=== PATIENT | female | born 1940 | race Caucasian/White ===

== ENCOUNTER → 2016-12-20 | Outpatient (CLI) | payer OTHER ==
[~2016-12-20] MED LIST: ASPI1TAB48 PO; CEFU500T16 PO; CEPH500C2 PO; CEPH500T PO; CHOL100010 PO; CHOL100027 PO; CIPR-255 PO; CPR750 PO; CYAN100020 PO; CZR50 PO; FERR325T PO; FERR325T51 PO; FLNIN/ NAE; FLUT1SPR12 NAE; FOLI1TAB7 PO; FURO-85 PO; GLC500 PO; IPRA1AER2 INH; LPT10 PO; LSX20 PO; MAGNTAB4 PO; METF-80 PO; MISCCAP80 PO; MONT1TAB5 PO; MULT-190 PO; MULT-884 PO; NTRGSL/4 UT; OXYC-57 PO; OXYC1TAB3 PO; RANI150T2 PO; SNG10 PO; TPRSR/25 PO; TPRSR25 PO; VITA100C4 PO; VITA400C3 PO; WARF-283 PO; WARF2TAB PO; ZNTT/150 PO
[2016-12-20 13:22] LABS: ALT/SGPT 23 U/L (12-78); BLOOD UREA NITROGEN 18 mg/dl (7-18); BUN/CREATININE RATIO 19.6 (10-20); CALCIUM 9.9 mg/dl (8.5-10.1); CARBON DIOXIDE 27 mmol/L (21-32); CHLORIDE 105 mmol/L (98-107); CHOLESTEROL 128 mg/dl (0-200); CREATININE 0.92 mg/dl (0.60-1.20); GLUCOSE 98 mg/dl (70-99); POTASSIUM 4.2 mmol/L (3.5-5.1); SODIUM 141 mmol/L (136-145); TRIGLYCERIDES 81 mg/dl (0-150); VERY LOW DENSITY LIPOPROT CALC 16 mg/dl
[2016-12-20 13:32] LABS: ALB/GLOB RATIO 0.9 (0.9-2); ESTIMATED AVERAGE GLUCOSE 137 mg/dl; HA1C FLAG Normal (Normal)
[2016-12-20 13:33] LABS: ALKALINE PHOSPHATASE 88 U/L (45-117); AST/SGOT 20 U/L (15-37); HDL CHOLESTEROL 63 mg/dl; LDL CHOLESTEROL CALCULATED 49 mg/dl
--- NOTE | 2016-12-25 14:16 | CODING QUERY MEDICAL NECESSITY ---
SUPPORTING DIAGNOSIS NEEDED A supporting diagnosis is required for the test/procedure performed on this patient in order for us to be reimbursed by the patient's insurance. Please provide a supporting diagnosis for the following test/procedure listed below next to the test name along with your signature. *If there is no additional diagnosis for this patient that would support the following test/procedure please document that below next to the test/procedure. Test(s)/Procedure(s) that require a supporting diagnosis: * VITAMIN D 25-HYDROXY DIAGNOSIS: * DOS: 12/20/16 Provider Signature: Date: Thank you Sofy Hodge Health Information Management Once completed, please kindly fax back to [phone] For questions please call [phone]
== END | disposition home or self-care (01) ==
LOC: C.LABPVFM 09:40
PROVIDERS: ATTEND Family Medicine
DX: I10 Essential (primary) hypertension (principal); E78.5 Hyperlipidemia, unspecified; E11.21 Type 2 diabetes mellitus with diabetic nephropathy; R53.83 Other fatigue; E55.9 Vitamin D deficiency, unspecified; Z51.81 Encounter for therapeutic drug level monitoring; I48.2 Chronic atrial fibrillation; Z79.01 Long term (current) use of anticoagulants

== ENCOUNTER 2017-01-06 15:04 | Emergency (ER) | payer OTHER ==
[~2017-01-06] VITALS: Ht 157.5 cm; Wt 88.0 kg
[~2017-01-06 15:04] MED LIST changes: -ASPI1TAB48 PO; -CEFU500T16 PO; -CEPH500C2 PO; -CHOL100027 PO; -CIPR-255 PO; -CPR750 PO; -FERR325T PO; -FLNIN/ NAE; -FOLI1TAB7 PO; -GLC500 PO; -IPRA1AER2 INH; -LPT10 PO; -LSX20 PO; -MULT-884 PO; -NTRGSL/4 UT; -RANI150T2 PO; -SNG10 PO; -TPRSR/25 PO; -VITA400C3 PO; -WARF-283 PO
[2017-01-06 15:17] VITALS: TEMP 37; Ht 157.5 cm; Wt 88.0 kg
[2017-01-06] MEDS ORDERED: GLC500 PO (15:46)
[2017-01-06] MEDS ORDERED: FLNIN/ NAE (15:46)
[2017-01-06] MEDS ORDERED: ASPI1TAB48 PO (16:00)
[2017-01-06] MEDS ORDERED: WARF-283 PO ×2 (16:00→16:02)
[2017-01-06] MEDS ORDERED: TPRSR/25 PO ×2 (16:02)
[2017-01-06] MEDS ORDERED: LSX20 PO (16:02)
[2017-01-06] MEDS ORDERED: RANI150T2 PO (16:03)
[2017-01-06] MEDS ORDERED: SNG10 PO (16:03)
[2017-01-06] MEDS ORDERED: CHOL100027 PO (16:07)
[2017-01-06] MEDS ORDERED: FERR325T PO (16:07)
[2017-01-06] MEDS ORDERED: VITA400C3 PO (16:08)
[2017-01-06] MEDS ORDERED: NTRGSL/4 UT (16:11)
[2017-01-06 16:34] VITALS: BP 151/89; PULSE 77; O2SAT 94
[2017-01-06] MEDS ORDERED: LPT10 PO (19:41)
[2017-01-06] MEDS ORDERED: MULT-884 PO (19:45)
[2017-01-06] MEDS ORDERED: IPRA1AER2 INH (19:51)
[2017-01-06] MEDS ORDERED: FOLI1TAB7 PO (23:31)
--- NOTE | 2017-01-08 17:52 | EMERGENCY ROOM VISIT NOTE ---
ED Visit Note First contact with patient: 15:25 Chief Complaint: Left lower leg laceration. History of Present Illness: Ms. Hester is a 76-year-old white female who ambulates into the ED complaining of a left lower leg laceration. Patient reports approximately 2 hours ago she was sitting in a rocking chair and attempted to cross her legs. She caught her lower leg on another piece of furniture and developed a superficial tear over the anterior aspect of the left lower leg. She reports there was no bleeding at the time of the injury. Currently associated with her superficial skin tear she reports she has a stinging sensation. She rates this discomfort 5/10. The pain is nonradiating. Pain worsens with palpation. She has not identified any alleviating factors related to this discomfort. She has not taken a medications for this discomfort prior to arrival at the hospital. She denies any associated symptoms including knee pain, ankle pain, leg weakness/numbness/tingling. Review of Systems: As noted above in history of present illness. Past Medical History: (1) AMI (acute myocardial infarction) (2) Anticoagulated on Coumadin (3) Atrial fibrillation (4) Atrial fibrillation with rapid ventricular response (5) Benign hypertension (6) CAD (coronary artery disease) (7) GERD (gastroesophageal reflux disease) (8) Hyperlipidemia (9) MRSA (10) ELISEO (obstructive sleep apnea) (11) Pain of left lower leg (12) rotator cuff surgery (13) Sarcoidosis (14) Spinal stenosis Surgical Problems: (1) Percutaneous transluminal coronary angioplasty status (2) Total knee replacement status Current Medications: Medications Dose Route/Sig Max Daily Dose Days Date Category Dose Instructions Vitamin E 400 Iu (Vitamin E) Unknown Strength Cap 1 Tab PO DAILY 01/06/17 Reported Vitamin D 1000 Unit (Cholecalciferol) 1,000 Unit Cap 1,000 Inter.unit PO DAILY 01/06/17 Reported Ferrous Sulfate 325 Mg Tab 325 Mg PO DAILY 01/06/17 Reported Montelukast Sodium (Montelukast Sod) 10 Mg Tab 10 Mg PO HS 01/06/17 Reported Ranitidine HCl 150 Mg Tab 150 Mg PO BID 01/06/17 Reported Furosemide 20 Mg Tab 20 Mg PO 3XWK 01/06/17 Reported TAKE THIS MEDICATION EVERY SUNDAY,SUNDAY AND SUNDAY Metoprolol Succinate ER (Metoprolol Succinate) 25 Mg Tabcr 50 Mg PO QPM 01/06/17 Reported Metoprolol Succinate ER (Metoprolol Succinate) 25 Mg Tabcr 37.5 Mg PO QAM 01/06/17 Reported Warfarin Sodium 4 Mg Tab 2 Mg PO 2XWK 01/06/17 Reported TAKE HALF A TABLET (2 MG) EVERY SUNDAY AND SUNDAY OR OTHERWISE DIRECTED TO TAKE BY ANTICOAGULATION CLINIC/ Metformin HCl 500 Mg Tab 1,000 Mg PO QAM 01/06/17 Reported Fluticasone Propionate 120 Sprays/6000 Mcg Inha 2 Sprays [place] DAILY PRN 01/06/17 Reported Slow-Mag Tab (Magnesium Chloride) 64 Mg Tabcr 64 Mg PO BID 05/16/16 Reported Folvite (Folic Acid) 1 Mg Tab 1 Mg PO DAILY 04/11/16 Reported Percocet 5MG/325MG (Oxycodone/Acetaminophen) Tab 1-2 Tabs PO Q4H PRN 03/06/16 Reported PAIN Ocuvite Preservision (Multivitamins/Minerals) 1 Tab Tab 1 Tab PO BID 03/06/16 Reported Fortamet (Metformin Hcl) 500 Mg Tab 500 Mg PO QPM 03/06/16 Reported Cephalexin 500 Mg Tab 500 Mg PO DAILY 11/10/15 Reported Vitamin B12 (Cyanocobalamin) 1,000 Mcg Tab 1,000 Mcg PO DAILY 10/19/15 Reported Probiotic (Probiotic Product) 1 Cap Cap 1 Cap PO QPM 10/19/15 Reported Combivent Respimat (Ipratropium-Albuterol) 1 Aer Aer 1 Puff INH UD PRN 03/02/15 Reported Multi Vitamin Daily (Multiple Vitamin) 1 Tab Tab 1 Tab PO DAILY 03/02/15 Reported Atorvastatin Calcium (Atorvastatin) 10 Mg Tab 10 Mg PO QPM 03/02/15 Reported Nitrostat (Nitroglycerin) 0.4 Mg Tab 0.4 Mg UT UD PRN 01/29/[address] ONE TABLET UNDER THE TONGUE EVERY 5 MINUTES FOR UP TO 3 DOSES IF NEEDED FOR CHEST PAIN. Aspirin Low Dose (Aspirin) 81 Mg Tab 81 Mg PO 3XWK 01/29/14 Reported TAKE THIS MEDICATION EVERY SUNDAY,SUNDAY AND SUNDAY Warfarin Sodium 4 Mg Tab 4 Mg PO 5XWK 01/29/14 Reported TAKE 4 MG EVERY SUNDAY,SUNDAY,SUNDAY,SUNDAY AND SUNDAY OR OTHERWISE DIRECTED TO TAKE BY ANTICOAGULATION CLINIC/MD. Allergies to Medications: Morphine. Social History: Patient is not currently employed; she feels safe in her home environment; she denies tobacco and alcohol use. Tetanus Immunization Status: Patient reports up-to-date. Physical Examination: Vital Signs: Date Time Temp Pulse Resp B/P Pulse Ox O2 Delivery O2 Flow Rate FiO2 01/06/17 16:34 77 18 151/89 94 01/06/17 15:17 37.0 86 18 170/86 92 Room Air GENERAL: 76-year-old female in mild distress due to pain, nontoxic-appearing, afebrile and hemodynamically stable. NEUROLOGICAL: Awake, alert and oriented to person, place and time. Answering questions appropriately and following commands. Normal gait. Good hand eye coordination. No focal motor sensory deficits. SKIN: Warm, dry and pink. Left Lower Leg: Patient has a crescent shaped 7.3 mm superficial skin tear over the anterior aspect of the left lower leg. No active bleeding. LEFT LOWER EXTREMITY: Soft tissue injury as noted above. No gross bony deformity. Full range of motion in the flexion and extension and ankle plantar flexion and dorsiflexion. Patient has some venous stasis changes as well as some mild dependent edema in this leg. Distal pulses and sensations are intact. ED Course: Patient is assessed as noted above. Wound Repair: Complexity: Basic Verbal consent was obtained after the risks and benefits were explained. The skin was prepped with betadine and a sterile field set. The wound was explored for foreign bodies and none found. Copious irrigation was performed using sterile saline. Debridement was not performed. Patient's wound was dry and benzoin was placed around the wound and allowed to dry. The wound edges were approximated using multiple Steri-Strips. Good approximation was achieved. Sterile dressing applied. No complications and the patient tolerated the procedure well. Patient was educated about tonight's findings and instructed on his treatment plan; he verbalizes understanding and agreement with this plan. Clinical Impression: Left lower leg skin tear. Disposition: Patient discharged home in stable condition; prior to departure he was reassessed and subjectively reported she was pain-free. Plan: Comfort measures, wound care, and signs of infection were discussed with the patient. Patient was encouraged to follow-up with personal physician or return emergency department for signs of infection or any new/concerning symptoms.
[2017-01-17] MEDS ORDERED: CIPR-255 PO (10:37)
[2017-02-19] MEDS ORDERED: CEPH500C2 PO (14:52)
[2017-02-26] MEDS ORDERED: CEPH500C2 PO (14:13)
[2017-03-05] MEDS ORDERED: CEFU500T16 PO (15:18)
[2017-03-22] MEDS ORDERED: CPR750 PO (13:56)
[2017-03-22] MEDS ORDERED: CEPH500C2 PO (14:24)
[2017-06-28] MEDS ORDERED: CEPH500C2 PO (13:14)
== END 2017-01-06 16:35 | disposition home or self-care (01) ==
LOC: C.EDB 15:05 → C.EDD 16:35
DX: S81.812A Laceration without foreign body, left lower leg, initial encounter (principal); W45.8XXA Other foreign body or object entering through skin, initial encounter; Z79.01 Long term (current) use of anticoagulants; I25.2 Old myocardial infarction; I48.91 Unspecified atrial fibrillation; I10 Essential (primary) hypertension; I25.10 Atherosclerotic heart disease of native coronary artery without angina pectoris; K21.9 Gastro-esophageal reflux disease without esophagitis; E78.5 Hyperlipidemia, unspecified; G47.33 Obstructive sleep apnea (adult) (pediatric); Z98.62 Peripheral vascular angioplasty status; Z96.659 Presence of unspecified artificial knee joint; Z79.899 Other long term (current) drug therapy; Z79.82 Long term (current) use of aspirin

== ENCOUNTER 2017-01-14 21:23 | Inpatient (IN) | payer OTHER ==
[~2017-01-14] VITALS: Ht 157.5 cm; Wt 87.9 kg
[~2017-01-14 21:23] MED LIST changes: +ASPI1TAB48 PO; -CHOL100010 PO; +CHOL100027 PO; -CZR50 PO; +FERR325T PO; -FERR325T51 PO; +FLNIN/ NAE; -FLUT1SPR12 NAE; +FOLI1TAB7 PO; -FURO-85 PO; +GLC500 PO; +IPRA1AER2 INH; +LPT10 PO; +LSX20 PO; -MONT1TAB5 PO; +MULT-884 PO; +NTRGSL/4 UT; -OXYC1TAB3 PO; +RANI150T2 PO; +SNG10 PO; +TPRSR/25 PO; -TPRSR25 PO; -VITA100C4 PO; +VITA400C3 PO; +WARF-283 PO; -WARF2TAB PO; -ZNTT/150 PO
[2017-01-14] MEDS ORDERED: CEFTRIAXONE SOD INJ 1 GM ADDVIAL IV STA (22:07)
[2017-01-14] MEDS ORDERED: OXYCODONE HCL IR 5 MG TAB (IMMEDIATE RELEASE) PO STA (22:07)
[2017-01-14] MEDS ORDERED: VANCOMYCIN 1GM/270ML NSS IV STA (22:07)
[2017-01-14] MEDS ORDERED: ONDANSETRON INJ 2 MG/ML 2 ML VIAL IV STA (22:07)
--- NOTE | 2017-01-14 22:24 | EMERGENCY ROOM VISIT NOTE ---
History Report prepared by Lissa: Ginger Camacho Under the Supervision of: Dr. Codey Day M.D. First contact with patient: 22:02 Chief Complaint: WOUND INFECTION Stated Complaint: POSSIBLE CELLULITIS ON LF LEG History of Present Illness The patient is a 76 year old female who presents to the Emergency Room with complaints of a worsening wound infection of the left leg for the past couple of days. The patient has a weeping wound on her left ankle that she has been leaving uncovered for the past 2 days. Yesterday she noticed some redness extending up her leg from the wound. She states that this redness has been gradually worsening since yesterday and today it extends all the way up her leg to her hip. She is experiencing associated pain of the left leg. The patient rates her pain as a 5/10 in severity. She also reports a headache that started earlier today. She is not following up with wound care clinic. The patient has a history of cellulitis. She is on Coumadin for atrial fibrillation. Source of History: patient Onset: 2 days ago Position: leg (left) Symptom Intensity: 5/10 Quality: other (redness) Timing: worsening Associated Symptoms: + headache Review of Systems See HPI for pertinent positives & negatives. A total of 10 systems reviewed and were otherwise negative. Past Medical & Surgical Medical Problems: (1) AMI (acute myocardial infarction) (2) Anticoagulated on Coumadin (3) Atrial fibrillation (4) Atrial fibrillation with rapid ventricular response (5) Benign hypertension (6) CAD (coronary artery disease) (7) GERD (gastroesophageal reflux disease) (8) Hyperlipidemia (9) MRSA (10) ELISEO (obstructive sleep apnea) (11) Pain of left lower leg (12) rotator cuff surgery (13) Sarcoidosis (14) Spinal stenosis Surgical Problems: (1) Percutaneous transluminal coronary angioplasty status (2) Total knee replacement status Family History Cancer Diabetes mellitus FHx: heart disease FHx: hypertension Lung disease Social History Smoking Status: Never Smoker Alcohol Use: none Drug Use: none Marital Status: Housing Status: lives alone Occupation Status: unemployed Current/Historical Medications Scheduled Aspirin (Aspirin Low Dose), 81 MG PO 3XWK Atorvastatin (Atorvastatin Calcium), 10 MG PO QPM Cephalexin (Cephalexin), 500 MG PO DAILY Cholecalciferol (Vitamin D 1000 Unit), 1,000 INTER.UNIT PO DAILY Cyanocobalamin (Vitamin B12), 1,000 MCG PO DAILY Ferrous Sulfate (Ferrous Sulfate), 325 MG PO DAILY Folic Acid (Folvite), 1 MG PO DAILY Furosemide (Furosemide), 20 MG PO 3XWK Magnesium Chloride (Slow-Mag Tab), 64 MG PO BID Metformin HCl (Metformin HCl), 1,000 MG PO QAM Metformin Hcl (Fortamet), 500 MG PO QPM Metoprolol Succinate (Metoprolol Succinate ER), 37.5 MG PO QAM Metoprolol Succinate (Metoprolol Succinate ER), 50 MG PO QPM Montelukast Sod (Montelukast Sodium), 10 MG PO HS Multiple Vitamin (Multi Vitamin Daily), 1 TAB PO DAILY Ocuvite Preservision (Ocuvite Preservision), 1 TAB PO BID Probiotic Product (Probiotic), 1 CAP PO QPM Ranitidine HCl (Ranitidine HCl), 150 MG PO BID Vitamin E (Vitamin E 400 Iu), 1 TAB PO DAILY Warfarin Sodium (Warfarin Sodium), 4 MG PO 5XWK Warfarin Sodium (Warfarin Sodium), 2 MG PO 2XWK Scheduled PRN Fluticasone Propionate (Fluticasone Propionate), 2 SPRAYS [place] DAILY PRN for Allergy Symptoms Ipratropium-Albuterol (Combivent Respimat), 1 PUFF INH UD PRN for Shortness of Breath Nitroglycerin (Nitrostat), 0.4 MG UT UD PRN for Chest Pain Oxycodone/Acetaminophen 5MG/325MG (Percocet 5MG/325MG), 1-2 TABS PO Q4H PRN for Pain Allergies Coded Allergies: Adhesives (Verified Allergy, Unknown, 01/14/17) Morphine (Verified Adverse Reaction, Unknown, SENSITIVITY, 01/14/17) Physical Exam Vital Signs Date Time Temp Pulse Resp B/P Pulse Ox O2 Delivery O2 Flow Rate FiO2 01/14/17 23:10 80 20 150/94 95 Room Air 01/14/17 21:25 37.1 76 20 155/88 94 Room Air Physical Exam GENERAL: Patient is a healthy-appearing well-nourished 76 year old female. HEAD: Normocephalic atraumatic EYES: Ocular movements intact pupils equal and react to light OROPHARYNX mucous membranes are moist no exudates present no erythema or edema present NECK: Supple no nuchal rigidity CHEST: Good equal expansion LUNGS: Clear and equal to auscultation CARDIAC: Normal S1 and S2 ABDOMEN: Soft nontender no guarding BACK: No CVA tenderness EXTREMITIES: Areas of cellulitis extending all the way up the left leg to the hip, there is a 1in x 3in weeping wound to the left medial malleolus area. NEURO: Patient is following commands is answering questions appropriately. Alert and oriented x3 Cranial Nerves 2-12 grossly intact Medical Decision & Procedures ER Provider Diagnostic Interpretation: Radiology results as stated below per my review and radiologist interpretation: US VENOUS LEFT LOWER EXTREMITY: No evidence of deep venous thrombosis. Limited visualization of calf veins due to soft tissue swelling. 2.6 x 0.8 x 0.7 cm fluid collection in popliteal fossa, likely a popliteal cyst and smaller than on prior ultrasound 03/20/16. Radiologist: Fernando Rivas MD Laboratory Results 01/14/17 22:30 Red Blood Count 4.32, Mean Corpuscular Volume 99.1, Mean Corpuscular Hemoglobin 32.9, Mean Corpuscular Hemoglobin Concent 33.2, Mean Platelet Volume 11.3, Neutrophils (%) (Auto) 84.6, Lymphocytes (%) (Auto) 6.1, Monocytes (%) (Auto) 8.6, Eosinophils (%) (Auto) 0.3, Basophils (%) (Auto) 0.1, Neutrophils # (Auto) 10.08, Lymphocytes # (Auto) 0.73, Monocytes # (Auto) 1.02, Eosinophils # (Auto) 0.03, Basophils # (Auto) 0.01 01/14/17 22:30 01/14/17 23:50 Test 01/14/17 22:30 White Blood Count 11.91 K/uL (4.8-10.8) Red Blood Count 4.32 M/uL (4.2-5.4) Hemoglobin 14.2 g/dL (12.0-16.0) Hematocrit 42.8 % (37-47) Mean Corpuscular Volume 99.1 fL (80-100) Mean Corpuscular Hemoglobin 32.9 pg (25-34) Mean Corpuscular Hemoglobin Concent 33.2 g/dl (32-36) Platelet Count 250 K/uL (130-400) Mean Platelet Volume 11.3 fL (7.4-10.4) Neutrophils (%) (Auto) 84.6 % Lymphocytes (%) (Auto) 6.1 % Monocytes (%) (Auto) 8.6 % Eosinophils (%) (Auto) 0.3 % Basophils (%) (Auto) 0.1 % Neutrophils # (Auto) 10.08 K/uL (1.4-6.5) Lymphocytes # (Auto) 0.73 K/uL (1.2-3.4) Monocytes # (Auto) 1.02 K/uL (0.11-0.59) Eosinophils # (Auto) 0.03 K/uL (0-0.5) Basophils # (Auto) 0.01 K/uL (0-0.2) RDW Standard Deviation 58.3 fL (36.4-46.3) RDW Coefficient of Variation 16.2 % (11.5-14.5) Immature Granulocyte % (Auto) 0.3 % Immature Granulocyte # (Auto) 0.04 K/uL (0.00-0.02) Prothrombin Time 14.9 SECONDS (9.0-12.0) Prothromb Time International Ratio 1.4 (0.9-1.1) Anion Gap 8.0 mmol/L (3-11) Est Creatinine Clear Calc Drug Dose 45.5 ml/min Estimated GFR () 56.9 Estimated GFR (Non- 49.1 BUN/Creatinine Ratio 20.4 (10-20) Calcium Level 9.2 mg/dl (8.5-10.1) Labs reviewed by ED physician. Medications Administered Medications (Trade) Dose Ordered Sig/Rain Route Start Time Stop Time Status Last Admin Dose Admin Oxycodone HCl (Roxicodone Immediate Rel Tab) 10 mg NOW STAT PO 01/14/17 22:07 01/14/17 22:10 DC 01/14/17 23:03 10 MG Ondansetron HCl (Zofran Inj) 4 mg NOW STAT IV 01/14/17 22:07 01/14/17 22:10 DC 01/14/17 23:03 4 MG Ceftriaxone Sodium (Rocephin Inj) 1 gm NOW STAT IV 01/14/17 22:07 01/14/17 22:10 DC 01/14/17 23:03 1 GM Vancomycin HCl (Vancomycin 1gm/ 270ml Nss) 1 gm NOW STAT IV 01/14/17 22:07 01/14/17 22:10 DC 01/15/17 00:06 1 ED Course 2201: Past medical records reviewed. The patient was evaluated in room B9. A complete history and physical examination was performed. 2206: Vancomycin HCl 1 gm IV, Rocephin 1 gm IV, Zofran 4 mg IV, Oxycodone HCl 10 mg PO 0005: I reassessed the patient at this time. She is feeling better and resting comfortably. I discussed the results and treatment plan with the patient. I answered all pertaining questions that she had. She expressed understanding and verbalized agreement. 8: I spoke with Dr. Dickey. We discussed the patients results and treatment plan. The patient will be evaluated by the [facility] for further management. Medical Decision Differential diagnosis: Etiologies such as cellulitis, abscess, MRSA infection, DVT, necrotizing fasciitis, dermatitis, drug eruption, as well as others were entertained. This is a 76-year-old female who presents emergency department complaining of cellulitis to the lower extremity. The patient is already on Keflex for her cellulitis however this has now rapidly expanded and goes all the way up the patient's leg. For this reason blood cultures were obtained, the patient does have an elevation in her white blood count. She was started on Rocephin and vancomycin. The patient is on Coumadin for pacemaker however her INR is 1.4. I discussed the case with the hospitalist service. Because the patient had decrease in her INR she was sent for an ultrasound which did not show any evidence of a DVT. Patient was in agreement with the treatment plan. Consults Time Called: 5 Consulting Physician: Dr. Dickey Returned Call: [address] Dickey. We discussed the patients results and treatment plan. The patient will be evaluated by the [facility] for further management. Impression Primary Impression: Cellulitis of left lower extremity Scribe Attestation The scribe's documentation has been prepared under my direction and personally reviewed by me in its entirety. I confirm that the note above accurately reflects all work, treatment, procedures, and medical decision making performed by me. Departure Information Dispostion Being Evaluated By Hospitalist Referrals Farheen Mayo M.D. (PCP) Patient Instructions My [facility]
[2017-01-14 23:15] LABS: BASO % 0.1 %; BASO ABS # 0.01 K/uL (0-0.2); COMPLETE YES; EOS % 0.3 %; HEMATOCRIT 42.8 % (37-47); IG% 0.3 %; LYMPH % 6.1 %; LYMPH ABS # 0.73 K/uL (1.2-3.4); MEAN CELL VOLUME 99.1 fL (80-100); MEAN CORPUSCULAR HEMOGLOBIN 32.9 pg (25-34); MEAN CORPUSCULAR HGB CONC 33.2 g/dl (32-36); MEAN PLATELET VOLUME 11.3 fL (7.4-10.4); MONO % 8.6 %; NEUT % 84.6 %; PLATELET COUNT 250 K/uL (130-400); RED BLOOD COUNT 4.32 M/uL (4.2-5.4); WHITE BLOOD COUNT 11.91 K/uL (4.8-10.8)
[2017-01-14 23:17] LABS: INR 1.4 (0.9-1.1); PROTHROMBIN TIME (PATIENT) 14.9 SECONDS (9.0-12.0)
[2017-01-14 23:33] LABS: BLOOD UREA NITROGEN 22 mg/dl (7-18); BUN/CREATININE RATIO 20.4 (10-20); CALCIUM 9.2 mg/dl (8.5-10.1); CARBON DIOXIDE 33 mmol/L (21-32); CHLORIDE 99 mmol/L (98-107); GLUCOSE 178 mg/dl (70-99); SODIUM 140 mmol/L (136-145)
[2017-01-15] VITALS (14 sets, daily range): BP systolic 119–154; BP diastolic 69–86; PULSE 59–68; TEMP 36.7–37.2; O2SAT 87–100; Ht 157.5 cm; Wt 87.9 kg
[2017-01-15] MEDS ORDERED: FLUTICASONE PROPIONATE NA SPR 16 GM BTL NAE PRN (01:00)
[2017-01-15] MEDS ORDERED: OXYCODONE/ACETAMINOPHEN 5-325 TAB PO PRN (01:00)
[2017-01-15] MEDS ORDERED: NITROGLYCERIN 0.4 MG SL PER TAB CHARGE UT PRN (01:00)
[2017-01-15] MEDS ORDERED: IPRATROPIUM BROMIDE/ALBUTEROL respimat INH INH PRN (01:00)
[2017-01-15] MEDS ORDERED: WARFARIN SOD 5 MG TAB PO ONE (01:00)
--- NOTE | 2017-01-15 01:45 | History and Physical ---
History & Physical Date & Time of Service: Jan 15, 2017 at 01:19 Chief Complaint: Possible Cellulitis On Lf Leg Primary Care Physician: Farheen Mayo M.D. History of Present Illness Source: patient 76 y/o F Hx CAD, sarcoid, AF-pacer. Pt suffered a superficial wound to her LLE one week prior. She developed cellulitis in the surrounding area and presented to an outpt clinic. She was placed on a course of Keflex however the cellulitis has spread over the past week and is now extensive and approaching her groin area. She may have had an accompanying low grade fever. 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 She denies SOB, N/V/D or dysuria. Past Medical/Surgical History Medical Problems: (1) AMI (acute myocardial infarction) Permanent Comment: STEMI 08/2013 this was medically managed as the offending artery was too narrow for stenting Status: Chronic (2) Anticoagulated on Coumadin Status: Chronic (3) Atrial fibrillation Status: Chronic (4) Benign hypertension Status: Chronic (5) CAD (coronary artery disease) Status: Chronic (6) GERD (gastroesophageal reflux disease) Status: Chronic (7) Hyperlipidemia Status: Chronic (8) MRSA Status: Resolved (9) ELISEO (obstructive sleep apnea) Status: Chronic (10) rotator cuff surgery Status: Resolved (11) Sarcoidosis Status: Chronic (12) Spinal stenosis Status: Chronic 13) Early DM 2 Surgical Problems: (1) Percutaneous transluminal coronary angioplasty status Status: Chronic (2) Total knee replacement status Permanent Comment: Complicated by MRSA and septic joint Status: Resolved 3) Pacer placement 2012 Family History Cancer Diabetes mellitus FHx: heart disease FHx: hypertension Lung disease Social History Smoking Status: Never Smoker Drug Use: none Marital Status: Occupational Status: unemployed Immunizations History of Influenza Vaccine: Yes Influenza Vaccine Date: Aug 19, 2013 History of Tetanus Vaccine?: Yes Tetanus Immunization Date: Jan 17, 2013 History of Pneumococcal: Yes Pneumococcal Date: Jun 10, 2009 History of Hepatitis B Vaccine: No Multi-Drug Resistant Organisms History of MDRO: No Allergies Coded Allergies: Adhesives (Verified Allergy, Unknown, 01/14/17) Morphine (Verified Adverse Reaction, Unknown, SENSITIVITY, 01/14/17) Home Medications Scheduled Aspirin (Aspirin Low Dose), 81 MG PO 3XWK Atorvastatin (Atorvastatin Calcium), 10 MG PO QPM Cephalexin (Cephalexin), 500 MG PO DAILY Cholecalciferol (Vitamin D 1000 Unit), 1,000 INTER.UNIT PO DAILY Cyanocobalamin (Vitamin B12), 1,000 MCG PO DAILY Ferrous Sulfate (Ferrous Sulfate), 325 MG PO DAILY Folic Acid (Folvite), 1 MG PO DAILY Furosemide (Furosemide), 20 MG PO 3XWK Magnesium Chloride (Slow-Mag Tab), 64 MG PO BID Metformin HCl (Metformin HCl), 1,000 MG PO QAM Metformin Hcl (Fortamet), 500 MG PO QPM Metoprolol Succinate (Metoprolol Succinate ER), 37.5 MG PO QAM Metoprolol Succinate (Metoprolol Succinate ER), 50 MG PO QPM Montelukast Sod (Montelukast Sodium), 10 MG PO HS Multiple Vitamin (Multi Vitamin Daily), 1 TAB PO DAILY Ocuvite Preservision (Ocuvite Preservision), 1 TAB PO BID Probiotic Product (Probiotic), 1 CAP PO QPM Ranitidine HCl (Ranitidine HCl), 150 MG PO BID Vitamin E (Vitamin E 400 Iu), 1 TAB PO DAILY Warfarin Sodium (Warfarin Sodium), 4 MG PO 5XWK Warfarin Sodium (Warfarin Sodium), 2 MG PO 2XWK Scheduled PRN Fluticasone Propionate (Fluticasone Propionate), 2 SPRAYS [place] DAILY PRN for Allergy Symptoms Ipratropium-Albuterol (Combivent Respimat), 1 PUFF INH UD PRN for Shortness of Breath Nitroglycerin (Nitrostat), 0.4 MG UT UD PRN for Chest Pain Oxycodone/Acetaminophen 5MG/325MG (Percocet 5MG/325MG), 1-2 TABS PO Q4H PRN for Pain Review of Systems Constitutional: + fever, No chills, No sweats Eyes: No eye pain, No worsening of vision ENT: No hearing loss, No nasal symptoms, No unusual epistaxis Respiratory: No cough, No sputum, No wheezing Cardiovascular: No PND, No chest pain, No orthopnea Abdomen: No nausea, No pain, No vomiting Musculoskeletal: + problem reported (Pain - medial LLE), + swelling, No joint pain, No muscle pain Genitourinary - Female: No dysuria, No urinary frequency, No urinary urgency Neurologic: + weakness, No memory loss, No paralysis Psychiatric: No depression symptoms Endocrine: No fatigue Hematologic / Lymphatic: No abnormal bleeding/bruising Integumentary: + rash (Cellulitis LLE as above ) Allergic / Immunologic: No environmental allergies Physical Exam Vital Signs Date Time Temp Pulse Resp B/P Pulse Ox O2 Delivery O2 Flow Rate FiO2 01/14/17 23:10 80 20 150/94 95 Room Air 01/14/17 21:25 37.1 76 20 155/88 94 Room Air General Appearance: WD/WN, no apparent distress Head: normocephalic Eyes: normal inspection, PERRL, EOMI ENT: normal ENT inspection, pharynx normal Neck: supple, no JVD Respiratory/Chest: chest non-tender, lungs clear, normal breath sounds, no respiratory distress, no accessory muscle use Cardiovascular: regular rate, rhythm, no edema, no gallop, no JVD, no murmur, normal peripheral pulses Abdomen/GI: normal bowel sounds, non tender, soft Back: normal inspection, no CVA tenderness, no muscle spasm Extremities/Musculoskelatal: + pertinent finding (Inflammation , tenderness and swelling extending from above the foot - approaching the groin on the medial LLE) Neurologic/Psych: metal weather stripper II-XII nml as tested, no motor/sensory deficits, alert, normal mood/affect, normal reflexes, oriented x 3 Skin: normal color, warm/dry, no rash Diagnostics Laboratory Results Results Past 24 Hours Test 01/14/17 22:30 01/14/17 23:50 Range/Units White Blood Count 11.91 4.8-10.8 K/uL Red Blood Count 4.32 4.2-5.4 M/uL Hemoglobin 14.2 12.0-16.0 g/dL Hematocrit 42.8 37-47 % Mean Corpuscular Volume 99.1 80-100 fL Mean Corpuscular Hemoglobin 32.9 25-34 pg Mean Corpuscular Hemoglobin Concent 33.2 32-36 g/dl Platelet Count 250 130-400 K/uL Mean Platelet Volume 11.3 7.4-10.4 fL Neutrophils (%) (Auto) 84.6 % Lymphocytes (%) (Auto) 6.1 % Monocytes (%) (Auto) 8.6 % Eosinophils (%) (Auto) 0.3 % Basophils (%) (Auto) 0.1 % Neutrophils # (Auto) 10.08 1.4-6.5 K/uL Lymphocytes # (Auto) 0.73 1.2-3.4 K/uL Monocytes # (Auto) 1.02 0.11-0.59 K/uL Eosinophils # (Auto) 0.03 0-0.5 K/uL Basophils # (Auto) 0.01 0-0.2 K/uL RDW Standard Deviation 58.3 36.4-46.3 fL RDW Coefficient of Variation 16.2 11.5-14.5 % Immature Granulocyte % (Auto) 0.3 % Immature Granulocyte # (Auto) 0.04 0.00-0.02 K/uL Prothrombin Time 14.9 9.0-12.0 SECONDS Prothromb Time International Ratio 1.4 0.9-1.1 Sodium Level 140 136-145 mmol/L Potassium Level 4.6 3.5-5.1 mmol/L Chloride Level 99 98-107 mmol/L Carbon Dioxide Level 33 21-32 mmol/L Anion Gap 8.0 3-11 mmol/L Blood Urea Nitrogen 22 7-18 mg/dl Creatinine 1.10 0.60-1.20 mg/dl Est Creatinine Clear Calc Drug Dose 45.5 ml/min Estimated GFR () 56.9 Estimated GFR (Non- 49.1 BUN/Creatinine Ratio 20.4 10-20 Random Glucose 178 70-99 mg/dl Calcium Level 9.2 8.5-10.1 mg/dl Microbiology Results 01/14/17 Blood Culture, Received Pending 01/14/17 Blood Culture, Received Pending Diagnostic Radiology LE US - no DVT Impression Assessment and Plan 76 y/o F Hx CAD, sarcoid, AF-pacer. Pt suffered a superficial wound to her LLE one week prior. She developed cellulitis in the surrounding area and presented to an outpt clinic. She was placed on a course of Keflex however the cellulitis has spread over the past week and is now extensive and approaching her groin area. She may have had an accompanying low grade fever. 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 She denies SOB, N/V/D or dysuria. 1) Cellulitis - spread has been rapid and extensive and is approaching her groin on the L - consequently we will place her on Cefepime and Vanc pending culture results. The upper margin will be delineated for daily reassessment. We will request a surgical evaluation as there appears to be a necrotic area forming around the initial wound at the distal L extremity. 2) AF - INR is subtherapeutic - she states she has been struggling with her dose for a while. We will hold her AM dose and provide one dose of SQ heparin pending surgical evaluation as she may need debridement. Her rate is controlled. 3) CAD - cont ASA - restart Coumadin as possible, cont Statin and B reynold 4) Sarcoid - not currently active - inhalers provided PRN 5) DM - Metformin held - sliding scale provided Full code - Heparin provided - normally on Coumadin Total time for this admit including review of available records, labs, US, med rec - discussion with Pt and ER attending - 37 min Level of Care Med/Surg Resuscitation Status FULL RESUSCITATION VTE Prophylaxis Risk Level: Moderate Given or contraindicated: Warfarin (Coumadin)
[2017-01-15] MEDS ORDERED: HEPARIN SOD 5000 UNIT/0.5 ML CARP SQ STA (01:49)
[2017-01-15] MEDS ORDERED: MAGNESIUM HYDROXIDE SUSP 30 ML UDC PO PRN (02:30)
[2017-01-15] MEDS ORDERED: ONDANSETRON INJ 2 MG/ML 2 ML VIAL IV PRN ×2 (02:30→08:15)
[2017-01-15] MEDS ORDERED: ZOLPIDEM TARTRATE 5 MG TAB PO PRN (02:30)
[2017-01-15] MEDS ORDERED: POLYETHYLENE (MIRALAX) 17 GM PACK PO PRN (02:30)
[2017-01-15] MEDS ORDERED: ALUMINUM/MAGNESIUM/SIMETH (MAALOX MAX) 30 ML UDC PO PRN (02:30)
[2017-01-15] MEDS ORDERED: GLUCAGON FOR INJ 1 MG VIAL SQ PRN (02:45)
[2017-01-15] MEDS ORDERED: GLUCOSE 10 TABS/TUBE PO PRN (02:45)
[2017-01-15] MEDS ORDERED: GLUCOSE 40% GEL 15 GM TUBE PO PRN (02:45)
[2017-01-15] MEDS ORDERED: DEXTROSE 50% 50 ML SYR IV PRN (02:45)
[2017-01-15] MEDS ORDERED: CEFEPIME CONSULT ACTIVE PRN ×2 (04:45)
[2017-01-15] MEDS ORDERED: VANCOMYCIN CONSULT ACTIVE PRN (04:45)
[2017-01-15] MEDS: CEFEPIME IV 2,000 MG in DEXTROSE 5% 100ML 100 ML IV SCH (05:19)
[2017-01-15 05:43] LABS: HEMATOCRIT 39.1 % (37-47); MEAN CELL VOLUME 100.8 fL (80-100); MEAN CORPUSCULAR HEMOGLOBIN 33.5 pg (25-34); MEAN CORPUSCULAR HGB CONC 33.2 g/dl (32-36); MEAN PLATELET VOLUME 11.2 fL (7.4-10.4); PLATELET COUNT 202 K/uL (130-400); RED BLOOD COUNT 3.88 M/uL (4.2-5.4); WHITE BLOOD COUNT 10.74 K/uL (4.8-10.8)
[2017-01-15] MEDS ORDERED: VANCOMYCIN INJ 1,300 MG in SODIUM CHLORIDE 0.9% 250ML 250 ML IV ONE (06:00)
[2017-01-15 06:20] LABS: CREATININE 0.96 mg/dl (0.60-1.20)
[2017-01-15 06:21] LABS: BUN/CREATININE RATIO 22.9 (10-20); CALCIUM 8.7 mg/dl (8.5-10.1); MAGNESIUM 1.8 mg/dl (1.8-2.4); POTASSIUM 4.5 mmol/L (3.5-5.1)
--- NOTE | 2017-01-15 06:43 | DIAGNOSTIC IMAGING REPORT ---
ULTRASOUND LEFT VENOUS DOPP LOWER EXT UNILAT CLINICAL HISTORY: Left leg swelling COMPARISON STUDY: 03/20/2016 FINDINGS: Real-time and color flow Doppler imaging were performed. Flow was seen within the femoral, popliteal and calf veins with no intraluminal thrombus demonstrated. The saphenous vein is patent. There is a tiny left popliteal fossa cyst. This is smaller than on the preceding study. IMPRESSION: No evidence of left lower extremity DVT Electronically signed by: Dillon Bagley M.D. 01/15/2017 6:42 AM Dictated Date/Time: 01/15/2017 6:41 AM
--- NOTE | 2017-01-15 07:46 | History & Physical Bridge Note ---
H&P Re-Evaluation Bridge Note: I have examined the patient, reviewed the History & Physical and in the interval since the performance of the History & Physical I have noted the following changes of clinical significance: No changes noted area of necrosis left lower ext marked for debridement
[2017-01-15] MEDS: INSULIN ASPART 100 UNITS/ML 3 ML PEN SC SCH ×4 (07:51→20:57)
--- NOTE | 2017-01-15 07:51 | Pre-Operative Consultation ---
History General Date of Service: Jan 15, 2017. HPI HPI: The patient is a 76 year old female admitted for left leg wound and cellulitis. 9 days ago she suffered a skin tear of her jarquin on a chair. Two days ago she began having erythema which was spreading up the leg and yesterday the wound blistered. Outpatient Keflex did not help, she was admitted by hospitalist overnight. Risk Assessment Daily beta reynold use?: Yes Problem List Medical Problems: (1) AMI (acute myocardial infarction) (2) Anticoagulated on Coumadin (3) Atrial fibrillation (4) Atrial fibrillation with rapid ventricular response (5) Benign hypertension (6) CAD (coronary artery disease) (7) GERD (gastroesophageal reflux disease) (8) Hyperlipidemia (9) MRSA (10) ELISEO (obstructive sleep apnea) (11) Pain of left lower leg (12) rotator cuff surgery (13) Sarcoidosis (14) Spinal stenosis Surgical Problems: (1) Percutaneous transluminal coronary angioplasty status (2) Total knee replacement status Medical & Surgical History Past Medical History: atrial fibrillation, high cholesterol, hypertension Past Surgical History: orthopedic surgery, total knee replacement Social History Hx Tobacco Use In Past Year?: No Smoking Status: Never Smoker Alcohol: none Drug Use: none Marital status: Occupation status: unemployed Immunizations Have You Had Influenza Vaccine: Yes Date Of Influenza Vaccine: Aug 19, 2013 Have You Had Tetanus Vaccine: Yes Date Of Tetanus Immunization: Jan 17, 2013 History of Pneumococcal: Yes Date of Pneumococcal Vaccine: Jun 10, 2009 History Hepatitis B Vaccine: No Allergies Allergies: Coded Allergies: Adhesives (Verified Allergy, Unknown, 01/14/17) Morphine (Verified Adverse Reaction, Unknown, SENSITIVITY, 01/14/17) Medications Current Inpatient Medications Current Inpatient Medications Medications (Trade) Dose Ordered Sig/Rain Route Start Time Stop Time Status Last Admin Dose Admin Aspirin (Ecotrin Tab) 81 mg DAILY PO 01/15/17 09:00 02/14/17 08:59 Atorvastatin Calcium (Lipitor Tab) 10 mg QPM PO 01/15/17 21:00 02/14/17 20:59 Cholecalciferol (Vitamin D Tab) 1,000 inter.unit DAILY PO 01/15/17 09:00 02/14/17 08:59 Fluticasone Propionate (Flonase Nasal [place]) 2 sprays DAILY PRN [place] 01/15/17 01:00 02/14/17 00:59 Folic Acid (Folvite Tab) 1 mg DAILY PO 01/15/17 09:00 02/14/17 08:59 Albuterol/ Ipratropium (Combivent Respimat Inh) 2 puffs Q6H PRN INH 01/15/17 01:00 02/14/17 00:59 Magnesium Chloride (Slow-Mag Tab) 64 mg BID PO 01/15/17 09:00 02/14/17 08:59 Metoprolol Succinate (Toprol Xl Tab) 37.5 mg QAM PO 01/15/17 09:00 02/14/17 08:59 Metoprolol Succinate (Toprol Xl Tab) 50 mg QPM PO 01/15/17 21:00 02/14/17 20:59 Montelukast Sodium (Singulair Tab) 10 mg HS PO 01/15/17 21:00 02/14/17 20:59 Nitroglycerin (Nitrostat Tab) 0.4 mg UD PRN UT 01/15/17 01:00 02/14/17 00:59 Multivitamins/ Minerals (Multivitamin W/ Minerals Tab) 1 tab BID PO 01/15/17 09:00 02/14/17 08:59 Oxycodone/ Acetaminophen (Percocet 5-325mg Tab) 1 tab Q4H PRN PO 01/15/17 01:00 01/29/17 00:59 Ranitidine HCl (zANTac TAB) 150 mg BID PO 01/15/17 09:00 02/14/17 08:59 Warfarin Sodium (Coumadin Tab) 4 mg DAILY@1600 PO 01/15/17 16:00 02/14/17 15:59 Cyanocobalamin (Vitamin B-12 Tab) 1,000 mcg DAILY PO 01/15/17 09:00 02/14/17 08:59 Ferrous Sulfate (Feosol Tab) 325 mg DAILY PO 01/15/17 09:00 02/14/17 08:59 Lactobacillus Acidophilus 4 tab 4 tab QPM PO 01/15/17 21:00 02/14/17 20:59 Vancomycin HCl 1300 mg/Sodium Chloride 276 ml @ 125 mls/hr TODAY@0600 ONCE IV 01/15/17 06:00 01/15/17 08:12 01/15/17 06:08 125 MLS/HR Cefepime HCl/ Dextrose (Maxipime IV/D5 100ml) 112.5 ml @ 200 mls/hr Q24H IV 01/15/17 05:00 01/25/17 04:59 01/15/17 05:19 200 MLS/HR Insulin Aspart (novoLOG ASPART) SLIDING SCALE G... ACHS SC 01/15/17 07:00 02/14/17 06:59 Acetaminophen (Tylenol Tab) 650 mg Q4H PRN PO 01/15/17 02:30 02/14/17 02:29 Al Hydrox/Mg Hydrox/Simethicone (Maalox Max Susp) 15 ml Q4H PRN PO 01/15/17 02:30 02/14/17 02:29 Magnesium Hydroxide (Milk Of Magnesia Susp) 30 ml Q6H PRN PO 01/15/17 02:30 02/14/17 02:29 Polyethylene (Miralax Powder Packet) 17 gm DAILY PRN PO 01/15/17 02:30 02/14/17 02:29 Zolpidem Tartrate (Ambien Tab) 5 mg HSZ PRN PO 01/15/17 02:30 02/14/17 02:29 Ondansetron HCl (Zofran Inj) 4 mg Q6H PRN IV 01/15/17 02:30 02/14/17 02:29 Glucose (Glucose 40% Gel) 15-30 GRAMS 15 GRAMS... UD PRN PO 01/15/17 02:45 02/14/17 02:44 Glucose (Glucose Chew Tab) 4-8 Tablets 4 Tabl... UD PRN PO 01/15/17 02:45 02/14/17 02:44 Dextrose (Dextrose 50% 50ML Syringe) 25-50ML OF 50% DW IV FOR... UD PRN IV 01/15/17 02:45 02/14/17 02:44 Glucagon (Glucagon Inj) 1 mg UD PRN SQ 01/15/17 02:45 02/14/17 02:44 Cefepime HCl (Consult) 1 ea UD PRN N/A 01/15/17 04:45 02/14/17 04:44 Vancomycin HCl (Consult) 1 ea UD PRN N/A 01/15/17 04:45 02/14/17 04:44 Review of Systems Review of Systems Constitutional: fever Physical Exam Physical Exam Physical Exam: T 36.7 P 59 BP 127/79 R 20 O2 97% General Appearance: + WD/WN, No distress Respiratory: No respiratory distress Cardiovascular: No tachycardia Abdomen: No distension Extremities: + other (left medial jarquin 8 cm skin tear, blistered, cyanotic and erythema extending into the thigh) Diagnostics Labs Labs Results Past 24 Hours Test 01/14/17 22:30 01/14/17 23:50 01/15/17 05:27 Range/Units White Blood Count 11.91 10.74 4.8-10.8 K/uL Red Blood Count 4.32 3.88 4.2-5.4 M/uL Hemoglobin 14.2 13.0 12.0-16.0 g/dL Hematocrit 42.8 39.1 37-47 % Mean Corpuscular Volume 99.1 100.8 80-100 fL Mean Corpuscular Hemoglobin 32.9 33.5 25-34 pg Mean Corpuscular Hemoglobin Concent 33.2 33.2 32-36 g/dl Platelet Count 250 202 130-400 K/uL Mean Platelet Volume 11.3 11.2 7.4-10.4 fL Neutrophils (%) (Auto) 84.6 % Lymphocytes (%) (Auto) 6.1 % Monocytes (%) (Auto) 8.6 % Eosinophils (%) (Auto) 0.3 % Basophils (%) (Auto) 0.1 % Neutrophils # (Auto) 10.08 1.4-6.5 K/uL Lymphocytes # (Auto) 0.73 1.2-3.4 K/uL Monocytes # (Auto) 1.02 0.11-0.59 K/uL Eosinophils # (Auto) 0.03 0-0.5 K/uL Basophils # (Auto) 0.01 0-0.2 K/uL RDW Standard Deviation 58.3 60.1 36.4-46.3 fL RDW Coefficient of Variation 16.2 16.3 11.5-14.5 % Immature Granulocyte % (Auto) 0.3 % Immature Granulocyte # (Auto) 0.04 0.00-0.02 K/uL Prothrombin Time 14.9 9.0-12.0 SECONDS Prothromb Time International Ratio 1.4 0.9-1.1 Sodium Level 140 137 136-145 mmol/L Potassium Level 4.6 4.5 3.5-5.1 mmol/L Chloride Level 99 100 98-107 mmol/L Carbon Dioxide Level 33 32 21-32 mmol/L Anion Gap 8.0 5.0 3-11 mmol/L Blood Urea Nitrogen 22 22 7-18 mg/dl Creatinine 1.10 0.96 0.60-1.20 mg/dl Est Creatinine Clear Calc Drug Dose 45.5 52.1 ml/min Estimated GFR () 56.9 67.1 Estimated GFR (Non- 49.1 57.9 BUN/Creatinine Ratio 20.4 22.9 10-20 Random Glucose 178 180 70-99 mg/dl Calcium Level 9.2 8.7 8.5-10.1 mg/dl Magnesium Level 1.8 1.8-2.4 mg/dl Microbiology Results 01/14/17 Blood Culture, Received Pending 01/14/17 Blood Culture, Received Pending Impression Assessment and Plan Assessment and Plan left lower extremity wound with cellulitis Will need excision of this necrotic area in the lower leg. Will do this in the OR with sedation when there is time available. Her INR was 1.4 and will not be an issue.
[2017-01-15] MEDS ORDERED: PROPOFOL IV EMULSION 10 MG/ML 20 ML VIAL IV ONE (07:52)
[2017-01-15] MEDS ORDERED: MIDAZOLAM HCL 1 MG/ML 2ML VIAL ONE (07:52)
[2017-01-15] MEDS ORDERED: LIDOCAINE HCL 2% 2 ML VIAL (20MG/ML) ONE (07:52)
[2017-01-15] MEDS ORDERED: FENTANYL CITRATE INJ 50 MCG/1 ML 2 ML VIAL ONE (07:52)
[2017-01-15] MEDS ORDERED: ONDANSETRON INJ 2 MG/ML 2 ML VIAL ONE (07:52)
[2017-01-15] MEDS ORDERED: ATROPINE SULFATE 0.1 MG/ML 5ML SYR IV PRN (08:15)
[2017-01-15] MEDS ORDERED: EpHEDrine SULFATE INJ 50 MG/ML AMP IV PRN (08:15)
[2017-01-15] MEDS ORDERED: MEPERIDINE HCL 25 MG/ML CARP IV PRN (08:45)
--- NOTE | 2017-01-15 08:57 | Medical Student: [facility] ---
Immediate Operative Summary Operative Date Jan 15, 2017. Pre-Operative Diagnosis LLE cellulitis with area of necrosis Post-Operative Diagnosis LLE cellulitis with area of necrosis Procedure(s) Performed I&D Surgeon Dr. Hernandez Windmill Mechanic Surgeon(s) none Estimated Blood Loss 3cc Findings LLE cellulitis with well-circumscribed necrotic skin located medial and inferior to left popliteal fossa Specimens necrotic flap of skin from LLE Complication(s) None Disposition Recovery Room / PACU
--- NOTE | 2017-01-15 08:57 | Medical Student: [facility] ---
Immediate Operative Summary Operative Date Jan 15, 2017. Pre-Operative Diagnosis Left lower extremity cellulitis Post-Operative Diagnosis Same as above Procedure(s) Performed Excision and debridement of necrotic area on left lower extremity Surgeon Dr. Nathan Hernandez System Software Developer Surgeon(s) None Estimated Blood Loss 3 cc Findings 1. Approximately 8x4 cm necrotic area on the medial aspect of the left lower extremity with origin near left saphenous vein and overlying blistering and cyanosis. 2. Area of erythema extending from wound superiorly to the left thigh. Fluids (cc crystalloids) 143 cc Specimens 1. Cx LLE necrotic skin flap Drains None Complication(s) None Disposition Recovery Room / PACU (In stable condition)
[2017-01-15] MEDS ORDERED: METFORMIN HCL 500 MG TAB PO SCH (09:00)
[2017-01-15] MEDS: FENTANYL CITRATE INJ 50 MCG/1 ML 2 ML VIAL IV PRN ×2 (09:12→09:17)
--- NOTE | 2017-01-15 09:20 | [facility] Post Operative Brief Note ---
Immediate Operative Summary Operative Date Jan 15, 2017. Pre-Operative Diagnosis Left Lower Leg Nectrotic Skin Flap(5x4 cm) Post-Operative Diagnosis Left Lower Leg Nectrotic Skin Flap Procedure(s) Performed Left Lower Extremity Debridement Necrotic Area(5x4 cm to subcutaneous tisue) Surgeon Dr. Hernandez Check Embosser Surgeon(s) None Estimated Blood Loss 5mL Findings fuu]ll thickness necrosis of skin 5x4 cm to sub cutaneous tissue Specimens Specimen A. Left Lower Leg Necrotic Skin Flap c and s taken Microbiology #1 Left Lower Leg Necrotic Skin Flap. Gram Stain, Anerobic/Aerobic, Culture and Sensitivity out at [id number]
--- NOTE | 2017-01-15 09:31 | Anesthesiology Progress Note ---
Anesthesia Post Op Note Date & Time Jan 15, 2017 at 09:30 Vital Signs Pain Intensity: 6 Vital Signs Past 12 Hours Date Time Temp Pulse Resp B/P Pulse Ox O2 Delivery O2 Flow Rate FiO2 01/15/17 09:20 60 18 116/72 98 Nasal Cannula 2 01/15/17 09:10 60 20 132/65 100 Mask 10 01/15/17 09:00 36.2 60 23 123/61 100 Mask 10 01/15/17 08:09 37.0 61 17 141/77 91 Room Air 01/15/17 06:56 36.7 59 20 127/79 97 Nasal Cannula 2.0 01/15/17 02:52 95 Nasal Cannula 2.0 01/15/17 02:50 36.9 64 16 154/73 87 Room Air 01/15/17 02:45 78 18 142/88 96 01/14/17 23:10 80 20 150/94 95 Room Air Notes Mental Status: alert / awake / arousable, participated in evaluation Pt Amnestic to Procedure: Yes Nausea / Vomiting: adequately controlled Pain: adequately controlled, improving with treatment Airway Patency, RR, SpO2: stable & adequate BP & HR: stable & adequate Hydration State: stable & adequate Anesthetic Complications: no major complications apparent
[2017-01-15] MEDS: RANITIDINE HCL 150 MG TAB PO SCH ×2 (10:10→20:43)
[2017-01-15] MEDS: FERROUS SULFATE 325 MG TAB PO SCH (10:10)
[2017-01-15] MEDS: CYANOCOBALAMIN 500 MCG TAB (VIT B-12) PO SCH (10:11)
[2017-01-15] MEDS: METOPROLOL SUCC 25MG EXT REL TAB PO SCH (10:12)
[2017-01-15] MEDS: CEROVITE ADV FORMULA TAB PO SCH ×2 (10:13→20:42)
[2017-01-15] MEDS: MAGNESIUM CHLORIDE 64MG DELAYED REL TAB PO SCH ×2 (10:14→20:42)
[2017-01-15] MEDS: ASPIRIN 81 MG ECTAB PO SCH (10:15)
[2017-01-15] MEDS: CHOLECALCIFEROL 1000 INTER.UNIT TAB PO SCH (10:16)
[2017-01-15 11:03] LABS: INR 1.4 (0.9-1.1); PROTHROMBIN TIME (PATIENT) 14.7 SECONDS (9.0-12.0)
--- NOTE | 2017-01-15 11:26 | Pharmacy Progress Note ---
Pharmacy Antibiotic Consult Date of Service: Jan 15, 2017. Pharmacy Dosing Scope Pharmacy is consulted to initiate vancomycin IV dosing therapy, order appropriate labs and adjust drug dose/frequency. Subjective The patient is a 76 year old female admitted on Jan 15, 2017 at 02:28 with a left lower extremity cellulitis. She suffered a skin tear on her leg from a chair last week. She was started on Keflex as an outpatient. The wound progressed and the cellulitis is almost to her groin. There was an area of necrosis that was surgically removed this morning by the surgeon. She has now been started on cefepime + vancomycin. She has a history of MRSA. Objective Height (Feet): 5 Height (Inches): 2.00 Weight (Kilograms): 87.900 Lab Results (24hrs): Laboratory Tests Test 01/14/17 22:30 01/15/17 05:27 BUN/Creatinine Ratio 20.4 22.9 Blood Urea Nitrogen 22 mg/dl 22 mg/dl Creatinine 1.10 mg/dl 0.96 mg/dl White Blood Count 11.91 K/uL 10.74 K/uL Red Blood Count 4.32 M/uL Hemoglobin 14.2 g/dL Hematocrit 42.8 % Mean Corpuscular Volume 99.1 fL Mean Corpuscular Hemoglobin 32.9 pg Mean Corpuscular Hemoglobin Concent 33.2 g/dl Platelet Count 250 K/uL Mean Platelet Volume 11.3 fL Neutrophils (%) (Auto) 84.6 % Lymphocytes (%) (Auto) 6.1 % Monocytes (%) (Auto) 8.6 % Eosinophils (%) (Auto) 0.3 % Basophils (%) (Auto) 0.1 % Neutrophils # (Auto) 10.08 K/uL Lymphocytes # (Auto) 0.73 K/uL Monocytes # (Auto) 1.02 K/uL Eosinophils # (Auto) 0.03 K/uL Basophils # (Auto) 0.01 K/uL Assessment & Plan Loading dose: vancomycin 1000 mg at 0006 + vancomycin 1300 mg IV X 1 dose ( together create 25 mg/kg) then: vancomycin 1200 mg IV every 16 hours (14 mg/kg; since the loading dose was given as two separate doses the vancomycin maintenance dose will be started 2 hours earlier than normal. Aggressive dosing was utilized here. Population pharmacokinetics suggest a half-life of 15 hours and an elimination constant of 0.046 h-1). Goal peak level estimate: between 35 - 40 mcg/mL. Goal trough level estimate: between 15 - 20 mcg/mL (indication: cellulitis that failed Keflex as an outpatient so concerned for MRSA). Trough has been ordered for: . Please note if patient fails to improve, may add anaerobic coverage. Pharmacy will continue to follow and will adjust dose/frequency as necessary. Thank you
--- NOTE | 2017-01-15 14:11 | OPERATIVE REPORT ---
DATE OF OPERATION: 01/15/2017 SURGEON: Dr. Hernandez. PREOPERATIVE DIAGNOSIS: Ischemic area, left lower extremity, approximately 5 x 4 cm. POSTOPERATIVE DIAGNOSIS: Same. Ischemic skin to the subcutaneous tissue 5 x 4 cm, left lower extremity. PROCEDURE: Excision of necrotic tissue to the subcutaneous tissues, C\T\S taken. SUMMARY: The patient was brought into the operating room theater. The left lower extremity was prepped with Betadine solution and properly draped. Sedation was given. At this point, we made a circumferential incision around all the necrotic tissue in the left lower extremity medial aspect and dissected through the subcutaneous fatty tissue, which appeared to be quite viable. The specimen was removed and sent for pathology and also C\T\S. The area was checked for hemostasis and appeared satisfactory. We then used 4 x 4 gauze and wrapped in Kerlix. Tomorrow, we will probably have an application of a wound VAC on her. The procedure was tolerated well. I attest to the content of the Intraoperative Record and any orders documented therein. Any exceptio ns are noted below.
[2017-01-15] MEDS: WARFARIN SOD 4 MG TAB PO SCH (16:12)
[2017-01-15] MEDS: ATORVASTATIN 10 MG TAB PO SCH (20:42)
[2017-01-15] MEDS: LACTOBACILLUS ACIDOPHILUS (FLORANEX) TAB PO SCH (20:42)
[2017-01-15] MEDS: VANCOMYCIN INJ 1,200 MG in SODIUM CHLORIDE 0.9% 250ML 250 ML IV SCH (20:42)
[2017-01-15] MEDS: MONTELUKAST SOD 10 MG TAB PO SCH (20:42)
[2017-01-15] MEDS: METOPROLOL SUCC 50MG EXT REL TAB PO SCH (20:49)
[2017-01-15] MEDS ORDERED: METFORMIN HCL 500 MG PO SCH (21:00)
[2017-01-15] MEDS ORDERED: CEFTRIAXONE SOD INJ 1 GM in DEXTROSE 5% ADD-VANTAGE 50ML 50 ML IV SCH (23:00)
[2017-01-16 02:58] VITALS: BP 115/71; PULSE 61; TEMP 36.5; O2SAT 100
[2017-01-16] MEDS: CEFEPIME IV 2,000 MG in DEXTROSE 5% 100ML 100 ML IV SCH (05:35)
--- NOTE | 2017-01-16 06:43 | Medical Student: [facility] ---
Med Student Progress Note Date of Service Jan 16, 2017. Subjective Pt evaluation today including: conversation w/ patient, physical exam, chart review, lab review, review of inpatient medication list Ms. Hendrix is a 76 yo F Hx ischemic skin of the LLE and cellulitis s/p excision of necrotic LLE tissue to the subcutaneous tissues on POD #1. The patient reports minimal pain at the operative site but continues to experience mild left leg discomfort. Denies fevers, chills, N/V, chest pain, or dyspnea. Has been ambulating, eating by mouth, and voiding without issue. Review of Systems Constitutional: No chills, No fever Respiratory: No shortness of breath Cardiac: No chest pain, No palpitations Abdomen: No pain Musculoskeletal: + problem reported (Mild left leg pain), No calf pain Female : No dysuria Skin: + problem reported (Continued erythema of left leg) Objective Vital Signs Vitals: Tmax: 37.2, Tcurr: 36.5, HR: 61 (range: 59-68), BP: 115/71, RR: 17, SpO2: 100% on NC 2L Physical Exam General Appearance: WD/WN, no apparent distress Eyes: bilateral eyes normal inspection Neck: supple Respiratory/Chest: lungs clear Cardiovascular: regular rate, rhythm, no murmur Abdomen: normal bowel sounds, non tender, soft Extremities: normal range of motion, no calf tenderness, + pertinent finding ( Erythema of the LLE extending superiorly from medial aspect of lower leg to upper inner thigh and just beyond the previously drawn line toward the groin) Neurologic/Psychiatric: alert, normal mood/affect, oriented x 3 Comments: I/O: Total in: 1745 Total out: 1100 UOP: 1100 Net: 645 Exam of operative site: Kerlix bandage in place with no visible strikethrough. Minimal tenderness. Laboratory Results Gram stain of LLE tissue pending. Last 24 Hours Test 01/15/17 07:47 01/15/17 09:12 01/15/17 10:24 01/15/17 11:43 Bedside Glucose 150 mg/dl 139 mg/dl 128 mg/dl Prothrombin Time 14.7 SECONDS Prothromb Time International Ratio 1.4 Test 01/15/17 16:45 01/15/17 20:52 01/16/17 04:44 Bedside Glucose 173 mg/dl 174 mg/dl Assessment and Plan Assessment and Plan: ASSESSMENT: 76 yo F s/p excision of necrotic LLE tissue to the subcutaneous tissues on POD # 1 who is progressing appropriately post-operatively but does have persistent erythema of the LLE with slight extension beyond the previously drawn line. PLAN: ID: -Remains afebrile. Area of LLE erythema is extending beyond previously drawn line; continue to monitor. -Await final results of Gram stain of LLE tissue. Currently receiving Vanc and Cefepime; adjust antibiotic regimen as indicated based on Cx results. Blood cultures show no growth to date. -Last WBC on 01/15 was 10.74, trending down from 11.91 on 01/14. Consider re-check today. -Continue dressing changes and routine wound-care. Hospital wound-care team is involved. Neuro: -Pain currently well-controlled. -Continue Percocet and Demerol prn. -Encourage OOB as tolerated. CV: -No tachycardia. Pulm: -No issues. Encourage incentive spirometry. GI: -ADAT. Heme: -On Coumadin for AF and INR 1.2, trending down from 1.4 on 01/15. Continue to monitor. Endo: -Hx DM. Continue sliding scale and POC blood glucose monitoring. Disposition: Remain as inpatient.
--- NOTE | 2017-01-16 07:12 | SURGERY PROGRESS NOTE ---
DATE: 01/16/2017 SUBJECTIVE: Margarita is resting comfortably, in no acute distress. The intraoperative findings were discussed with the patient. She was a little upset that the wound care people came in yesterday and took the dressing after just about 15 minutes after surgery to assess the wound. She really did not want anything to do with the hospital wound care system, but I reassured her that they were together with the outpatient clinic. She seemed to be fine with them coming back today and reevaluating her VAC system. Her wound was just dressed, I checked with the nurse and said it appeared to be really viable with very little bleeding. Her last vitals showed a temperature of 36.5, pulse 61, respirations 17, blood pressure 115/71 and O2 sats 100 on 2 liters. Laboratory is pending. The wound itself as stated was just redressed and by the nurse's assessment it was quite clean and had very little bleeding. She does have this cellulitis that is extending in the inner apsect of her upper thigh, along the saphenous vein distribution. Hopefully this will resolve with the antibiotics, that we will not need to do any more debridement or excision of the saphenous vein for thrombophlebitis. She would be a very significant problem as far as wound healing. At this point, we will keep a close eye on her. Cultures are pending. HAI
[2017-01-16 07:14] VITALS: BP 125/77; PULSE 61; TEMP 36.7; O2SAT 99
[2017-01-16] MEDS: INSULIN ASPART 100 UNITS/ML 3 ML PEN SC SCH ×4 (08:00→21:36)
[2017-01-16 08:46] LABS: INR 1.2 (0.9-1.1); PROTHROMBIN TIME (PATIENT) 12.7 SECONDS (9.0-12.0)
[2017-01-16] MEDS: MAGNESIUM CHLORIDE 64MG DELAYED REL TAB PO SCH ×2 (08:54→21:25)
[2017-01-16] MEDS: RANITIDINE HCL 150 MG TAB PO SCH ×2 (08:54→21:26)
[2017-01-16] MEDS: CHOLECALCIFEROL 1000 INTER.UNIT TAB PO SCH (08:55)
[2017-01-16] MEDS: ASPIRIN 81 MG ECTAB PO SCH (08:55)
[2017-01-16] MEDS: CYANOCOBALAMIN 500 MCG TAB (VIT B-12) PO SCH (08:55)
[2017-01-16] MEDS: FERROUS SULFATE 325 MG TAB PO SCH (08:55)
[2017-01-16] MEDS: CEROVITE ADV FORMULA TAB PO SCH ×2 (08:55→21:26)
[2017-01-16] MEDS: METOPROLOL SUCC 25MG EXT REL TAB PO SCH (08:58)
[2017-01-16 09:06] LABS: CREATININE 0.9 mg/dl (0.60-1.20)
--- NOTE | 2017-01-16 10:05 | Medical Student: [facility] ---
Med Student Progress Note Date of Service Jan 16, 2017. Subjective Pt evaluation today including: conversation w/ patient, chart review, lab review Pain: none Voiding: no voiding problems, no incontinence Patient is a 76y/o F w hx of CAD, afib s/p pacemaker, and prior cellulitis infections colonized w MRSA who presented 2 days ago for left lower extremity cellulitis after injuring her left leg. Yesterday, patient had I&D procedure to excise a necrotic skin flap from her LLE. Today, she is feeling good and has minimal tenderness of her left leg. She has been ambulating w/o difficulty and is eating well. She expressed frustrations over wound care in the hospital and plans to schedule a wound care clinic appt after being discharged. Review of Systems Constitutional: No chills, No fever, No weakness Respiratory: No cough, No shortness of breath, No wheezing Cardiac: No chest pain Abdomen: No nausea, No pain, No vomiting Musculoskeletal: No muscle pain, No swelling Female : No dysuria Skin: No new/changing skin lesions Objective Vital Signs Date Time Temp Pulse Resp B/P Pulse Ox O2 Delivery O2 Flow Rate FiO2 01/16/17 07:30 Room Air 01/16/17 07:14 36.7 61 20 125/77 99 Nasal Cannula 2.0 01/16/17 02:58 36.5 61 17 115/71 100 Nasal Cannula 2.0 01/15/17 23:55 Nasal Cannula 2.0 01/15/17 22:45 36.9 60 18 125/75 91 Nasal Cannula 2.0 01/15/17 20:50 68 138/86 01/15/17 19:21 36.8 60 16 119/69 93 Room Air 01/15/17 15:35 Nasal Cannula 2.0 01/15/17 15:02 36.7 60 16 121/77 100 Nasal Cannula 2.0 01/15/17 13:00 36.7 60 19 121/76 97 Nasal Cannula 2.0 01/15/17 12:54 90 Room Air 01/15/17 12:19 36.7 60 17 130/81 98 Nasal Cannula 2.0 01/15/17 11:11 36.9 62 19 154/84 99 Nasal Cannula 2.0 01/15/17 11:11 Nasal Cannula 2.0 01/15/17 10:41 36.7 64 20 150/86 97 Nasal Cannula 2.0 01/15/17 10:22 Nasal Cannula 2.0 01/15/17 10:00 37.2 62 22 133/79 96 Nasal Cannula 2.0 Physical Exam General Appearance: WD/WN, no apparent distress Eyes: bilateral eyes PERRL, bilateral eyes normal inspection Neck: supple, no adenopathy, no carotid bruits Respiratory/Chest: chest non-tender, lungs clear, normal breath sounds, no respiratory distress, no accessory muscle use Cardiovascular: regular rate, rhythm, no edema, no gallop, no murmur Abdomen: normal bowel sounds, non tender, soft Extremities: normal range of motion, no calf tenderness, + pertinent finding ( LLE erythema extending from medial prt of left thigh to lower leg in the saphenous vein distribution. Erythema is ~1cm below the previously drawn sharpie line. ) Neurologic/Psychiatric: no motor/sensory deficits, alert, normal mood/affect, oriented x 3 Skin: + pertinent finding (longitudinal scar running from rt. thigh to below rt. patella; well-circumscribed, radial scar on left patella) Laboratory Results 01/14/17 22:30 Red Blood Count 4.32, Mean Corpuscular Volume 99.1, Mean Corpuscular Hemoglobin 32.9, Mean Corpuscular Hemoglobin Concent 33.2, Mean Platelet Volume 11.3, Neutrophils (%) (Auto) 84.6, Lymphocytes (%) (Auto) 6.1, Monocytes (%) (Auto) 8.6, Eosinophils (%) (Auto) 0.3, Basophils (%) (Auto) 0.1, Neutrophils # (Auto) 10.08, Lymphocytes # (Auto) 0.73, Monocytes # (Auto) 1.02, Eosinophils # (Auto) 0.03, Basophils # (Auto) 0.01 01/15/17 05:27 01/14/17 22:30 01/15/17 05:27 01/16/17 07:54 Test 01/14/17 22:30 01/15/17 05:27 01/15/17 07:47 01/15/17 09:12 White Blood Count 11.91 K/uL (4.8-10.8) Red Blood Count 4.32 M/uL (4.2-5.4) 3.88 M/uL (4.2-5.4) Hemoglobin 14.2 g/dL (12.0-16.0) Hematocrit 42.8 % (37-47) Mean Corpuscular Volume 99.1 fL (80-100) 100.8 fL (80-100) Mean Corpuscular Hemoglobin 32.9 pg (25-34) 33.5 pg (25-34) Mean Corpuscular Hemoglobin Concent 33.2 g/dl (32-36) 33.2 g/dl (32-36) Platelet Count 250 K/uL (130-400) Mean Platelet Volume 11.3 fL (7.4-10.4) 11.2 fL (7.4-10.4) Neutrophils (%) (Auto) 84.6 % Lymphocytes (%) (Auto) 6.1 % Monocytes (%) (Auto) 8.6 % Eosinophils (%) (Auto) 0.3 % Basophils (%) (Auto) 0.1 % Neutrophils # (Auto) 10.08 K/uL (1.4-6.5) Lymphocytes # (Auto) 0.73 K/uL (1.2-3.4) Monocytes # (Auto) 1.02 K/uL (0.11-0.59) Eosinophils # (Auto) 0.03 K/uL (0-0.5) Basophils # (Auto) 0.01 K/uL (0-0.2) RDW Standard Deviation 58.3 fL (36.4-46.3) 60.1 fL (36.4-46.3) RDW Coefficient of Variation 16.2 % (11.5-14.5) 16.3 % (11.5-14.5) Immature Granulocyte % (Auto) 0.3 % Immature Granulocyte # (Auto) 0.04 K/uL (0.00-0.02) Prothrombin Time 14.9 SECONDS (9.0-12.0) Prothromb Time International Ratio 1.4 (0.9-1.1) Anion Gap 8.0 mmol/L (3-11) 5.0 mmol/L (3-11) Est Creatinine Clear Calc Drug Dose 45.5 ml/min 52.1 ml/min Estimated GFR () 56.9 67.1 Estimated GFR (Non- 49.1 57.9 BUN/Creatinine Ratio 20.4 (10-20) 22.9 (10-20) Calcium Level 9.2 mg/dl (8.5-10.1) 8.7 mg/dl (8.5-10.1) Magnesium Level 1.8 mg/dl (1.8-2.4) Bedside Glucose 150 mg/dl (70-90) 139 mg/dl (70-90) Test 01/15/17 10:24 01/15/17 11:43 01/15/17 16:45 01/15/17 20:52 Prothrombin Time 14.7 SECONDS (9.0-12.0) Prothromb Time International Ratio 1.4 (0.9-1.1) Bedside Glucose 128 mg/dl (70-90) 173 mg/dl (70-90) 174 mg/dl (70-90) Test 01/16/17 07:54 01/16/17 08:17 Prothrombin Time 12.7 SECONDS (9.0-12.0) Prothromb Time International Ratio 1.2 (0.9-1.1) Est Creatinine Clear Calc Drug Dose 55.6 ml/min Estimated GFR () 72.5 Estimated GFR (Non- 62.5 Bedside Glucose 136 mg/dl (70-90) Date/Time Source Procedure Growth Status 01/14/17 22:45 Blood Blood Culture - Preliminary NO GROWTH TO DATE. Resulted 01/15/17 08:41 Drainage-Deep Leg Lower Left Gram Stain - Final Resulted 01/15/17 08:41 Bacterial Culture - Preliminary Probable Pseudomonas Species Gram Negative Bacilli Resulted Medications Current Inpatient Medications Medications (Trade) Dose Ordered Sig/Rain Route Start Time Stop Time Status Last Admin Dose Admin Aspirin (Ecotrin Tab) 81 mg DAILY PO 01/15/17 09:00 02/14/17 08:59 01/16/17 08:55 81 MG Atorvastatin Calcium (Lipitor Tab) 10 mg QPM PO 01/15/17 21:00 02/14/17 20:59 01/15/17 20:42 10 MG Cholecalciferol (Vitamin D Tab) 1,000 inter.unit DAILY PO 01/15/17 09:00 02/14/17 08:59 01/16/17 08:55 1,000 INTER.UNIT Fluticasone Propionate (Flonase Nasal [place]) 2 sprays DAILY PRN [place] 01/15/17 01:00 02/14/17 00:59 Folic Acid (Folvite Tab) 1 mg DAILY PO 01/15/17 09:00 02/14/17 08:59 01/16/17 08:55 1 MG Albuterol/ Ipratropium (Combivent Respimat Inh) 2 puffs Q6H PRN [place] 01/15/17 01:00 02/14/17 00:59 Magnesium Chloride (Slow-Mag Tab) 64 mg BID PO 01/15/17 09:00 02/14/17 08:59 01/16/17 08:54 64 MG Metoprolol Succinate (Toprol Xl Tab) 37.5 mg QAM PO 01/15/17 09:00 02/14/17 08:59 01/16/17 08:58 37.5 MG Metoprolol Succinate (Toprol Xl Tab) 50 mg QPM PO 01/15/17 21:00 02/14/17 20:59 01/15/17 20:49 50 MG Montelukast Sodium (Singulair Tab) 10 mg HS PO 01/15/17 21:00 02/14/17 20:59 01/15/17 20:42 10 MG Nitroglycerin (Nitrostat Tab) 0.4 mg UD PRN [place] 01/15/17 01:00 02/14/17 00:59 Multivitamins/ Minerals (Multivitamin W/ Minerals Tab) 1 tab BID PO 01/15/17 09:00 02/14/17 08:59 01/16/17 08:55 1 TAB Oxycodone/ Acetaminophen (Percocet 5-325mg Tab) 1 tab Q4H PRN PO 01/15/17 01:00 01/29/17 00:59 01/15/17 11:19 1 TAB Ranitidine HCl (zANTac TAB) 150 mg BID PO 01/15/17 09:00 02/14/17 08:59 01/16/17 08:54 150 MG Warfarin Sodium (Coumadin Tab) 4 mg DAILY@1600 PO 01/15/17 16:00 02/14/17 15:59 01/15/17 16:12 4 MG Cyanocobalamin (Vitamin B-12 Tab) 1,000 mcg DAILY PO 01/15/17 09:00 02/14/17 08:59 01/16/17 08:55 1,000 MCG Ferrous Sulfate (Feosol Tab) 325 mg DAILY PO 01/15/17 09:00 02/14/17 08:59 01/16/17 08:55 325 MG Lactobacillus Acidophilus 4 tab 4 tab QPM PO 01/15/17 21:00 02/14/17 20:59 01/15/17 20:42 4 TAB Cefepime HCl/ Dextrose (Maxipime IV/D5 100ml) 112.5 ml @ 200 mls/hr Q24H IV 01/15/17 05:00 01/25/17 04:59 01/16/17 05:35 200 MLS/HR Insulin Aspart (novoLOG ASPART) SLIDING SCALE G... ACHS SC 01/15/17 07:00 02/14/17 06:59 01/15/17 20:57 1 UNITS Acetaminophen (Tylenol Tab) 650 mg Q4H PRN PO 01/15/17 02:30 02/14/17 02:29 Al Hydrox/Mg Hydrox/Simethicone (Maalox Max Susp) 15 ml Q4H PRN PO 01/15/17 02:30 02/14/17 02:29 Magnesium Hydroxide (Milk Of Magnesia Susp) 30 ml Q6H PRN PO 01/15/17 02:30 02/14/17 02:29 Polyethylene (Miralax Powder Packet) 17 gm DAILY PRN PO 01/15/17 02:30 02/14/17 02:29 Zolpidem Tartrate (Ambien Tab) 5 mg HSZ PRN PO 01/15/17 02:30 02/14/17 02:29 Ondansetron HCl (Zofran Inj) 4 mg Q6H PRN IV 01/15/17 02:30 02/14/17 02:29 Glucose (Glucose 40% Gel) 15-30 GRAMS 15 GRAMS... UD PRN PO 01/15/17 02:45 02/14/17 02:44 Glucose (Glucose Chew Tab) 4-8 Tablets 4 Tabl... UD PRN PO 01/15/17 02:45 02/14/17 02:44 Dextrose (Dextrose 50% 50ML Syringe) 25-50ML OF 50% DW IV FOR... UD PRN IV 01/15/17 02:45 02/14/17 02:44 Glucagon (Glucagon Inj) 1 mg UD PRN SQ 01/15/17 02:45 02/14/17 02:44 Cefepime HCl (Consult) 1 ea UD PRN N/A 01/15/17 04:45 02/14/17 04:44 Vancomycin HCl (Consult) 1 ea UD PRN N/A 01/15/17 04:45 02/14/17 04:44 Meperidine HCl 25 mg 25 mg Q2H PRN IV 01/15/17 08:45 01/29/17 08:44 Vancomycin HCl/ Sodium Chloride (Vancomycin Inj/ Nss 250ml) 274 ml @ 125 mls/hr Q16H IV 01/15/17 20:00 01/25/17 19:59 01/15/17 20:42 125 MLS/HR Assessment and Plan Assessment and Plan: Patient is a 76y/o F w hx of CAD, afib s/p pacemaker, and prior cellulitis infections colonized w MRSA who presented 2 days ago for LLE cellulitis and had I&D procedure yesterday to excise a necrotic skin flap. Cultures were taken of skin flap and preliminary results showed probable Pseudomonas species. LLE Cellulitis - continue to monitor vitals, labs, and erythema for progression of infection - continue IV cefepime 2,000mg and IV vancomycin 1,200mg q16h - consider adding IV Gentamicin to current antibiotic regimen for a 2-drug regimen to cover for Pseudomonas species - await final culture results and discontinue vancomycin if there is no MRSA cultured - consider involving hospital's wound care staff if patient becomes willing to see them
[2017-01-16 11:02] VITALS: BP 137/82; PULSE 64; TEMP 36.8; O2SAT 93
[2017-01-16] MEDS: VANCOMYCIN INJ 1,200 MG in SODIUM CHLORIDE 0.9% 250ML 250 ML IV SCH (12:09)
--- NOTE | 2017-01-16 12:59 | Progress Note ---
Subjective Date of Service: Jan 16, 2017. Subjective Pt evaluation today including: conversation w/ patient, physical exam, chart review, lab review, review of studies, review of inpatient medication list Problem List Medical Problems: (1) AMI (acute myocardial infarction) Permanent Comment: STEMI 08/2013 Status: Chronic (2) Anticoagulated on Coumadin Status: Chronic (3) Atrial fibrillation Status: Chronic (4) Atrial fibrillation with rapid ventricular response Status: Acute (5) CAD (coronary artery disease) Status: Chronic (6) Cellulitis of left lower extremity Status: Acute (7) GERD (gastroesophageal reflux disease) Status: Chronic (8) Hyperlipidemia Status: Chronic (9) ELISEO (obstructive sleep apnea) Status: Chronic (10) Paroxysmal atrial fibrillation Status: Acute (11) Sarcoidosis Status: Chronic (12) Skin tear of left lower leg without complication Status: Acute Surgical Problems: (1) Percutaneous transluminal coronary angioplasty status Status: Chronic Review of Systems Constitutional: No chills, No fever Respiratory: No cough, No shortness of breath, No sputum, No wheezing Cardiac: No chest pain, No orthopnea Abdomen: No constipation, No diarrhea, No nausea, No pain, No vomiting Musculoskeletal: + problem reported (redness right thigh/groin), + swelling, No joint pain, No muscle pain Female : No dysuria, No urinary frequency Objective Vital Signs Date Time Temp Pulse Resp B/P Pulse Ox O2 Delivery O2 Flow Rate FiO2 01/16/17 11:02 36.8 64 18 137/82 93 Room Air 01/16/17 07:30 Room Air 01/16/17 07:14 36.7 61 20 125/77 99 Nasal Cannula 2.0 01/16/17 02:58 36.5 61 17 115/71 100 Nasal Cannula 2.0 01/15/17 23:55 Nasal Cannula 2.0 01/15/17 22:45 36.9 60 18 125/75 91 Nasal Cannula 2.0 01/15/17 20:50 68 138/86 01/15/17 19:21 36.8 60 16 119/69 93 Room Air 01/15/17 15:35 Nasal Cannula 2.0 01/15/17 15:02 36.7 60 16 121/77 100 Nasal Cannula 2.0 01/15/17 13:00 36.7 60 19 121/76 97 Nasal Cannula 2.0 Physical Exam General Appearance: WD/WN, no apparent distress Neck: supple, no adenopathy Respiratory/Chest: lungs clear, normal breath sounds Cardiovascular: no edema, no gallop Abdomen: non tender, soft Neurologic/Psychiatric: alert, normal mood/affect, oriented x 3 Laboratory Results Last 24 Hours Test 01/15/17 16:45 01/15/17 20:52 01/16/17 07:54 01/16/17 08:17 Bedside Glucose 173 mg/dl 174 mg/dl 136 mg/dl Prothrombin Time 12.7 SECONDS Prothromb Time International Ratio 1.2 Creatinine 0.90 mg/dl Est Creatinine Clear Calc Drug Dose 55.6 ml/min Estimated GFR () 72.5 Estimated GFR (Non- 62.5 Test 01/16/17 11:49 Bedside Glucose 155 mg/dl Assessment and Plan 76 y/o F Hx CAD, sarcoid, AF-pacer. Pt suffered a superficial wound to her LLE one week prior. She developed cellulitis in the surrounding area and presented to an outpt clinic. She was placed on a course of Keflex however the cellulitis has spread over the past week and is now extensive and approaching her groin area. She may have had an accompanying low grade fever. 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 She denies SOB, N/V/D or dysuria. 1) Cellulitis - spread has been rapid and extensive and is approaching her groin on the L - Cont cefepime and stop vanc, wound culture gram neg bacilli likely pseudomonas. surgery consulted for excision of necrotic skin. 2) AF - INR is subtherapeutic - she states she has been struggling with her dose for a while. Rate controlled. Coumadin resumed. 3) CAD - cont ASA - restart Coumadin as possible, cont Statin and B reynold. 4) Sarcoid - not currently active - inhalers provided PRN. 5) DM - Metformin held - sliding scale provided. Full code - Heparin provided - normally on Coumadin
[2017-01-16 15:39] VITALS: BP 145/85; PULSE 64; TEMP 36.7; O2SAT 91
[2017-01-16] MEDS: WARFARIN SOD 4 MG TAB PO SCH (15:52)
[2017-01-16] MEDS ORDERED: WARFARIN SOD 5 MG TAB PO SCH (16:00)
[2017-01-16 19:26] VITALS: BP 126/72; PULSE 68; TEMP 36.6; O2SAT 97
[2017-01-16] MEDS: ATORVASTATIN 10 MG TAB PO SCH (21:25)
[2017-01-16] MEDS: MONTELUKAST SOD 10 MG TAB PO SCH (21:26)
[2017-01-16] MEDS: LACTOBACILLUS ACIDOPHILUS (FLORANEX) TAB PO SCH (21:27)
[2017-01-16] MEDS: METOPROLOL SUCC 50MG EXT REL TAB PO SCH (21:30)
[2017-01-16 23:20] VITALS: BP 136/75; PULSE 60; TEMP 36.5; O2SAT 99
[2017-01-17 03:08] VITALS: BP 154/81; PULSE 61; TEMP 36.7; O2SAT 99
[2017-01-17] MEDS ORDERED: VANCOMYCIN TROUGH SCH (03:30)
[2017-01-17 04:04] LABS: INR 1.2 (0.9-1.1); PROTHROMBIN TIME (PATIENT) 13.1 SECONDS (9.0-12.0)
[2017-01-17 04:05] LABS: CREATININE 0.9 mg/dl (0.60-1.20)
[2017-01-17] MEDS: CEFEPIME IV 2,000 MG in DEXTROSE 5% 100ML 100 ML IV SCH (05:18)
--- NOTE | 2017-01-17 06:47 | Medical Student: [facility] ---
Med Student Progress Note Date of Service Jan 17, 2017. Subjective Pt evaluation today including: conversation w/ patient, physical exam, chart review, lab review, review of inpatient medication list Ms. Hendrix is a 76 yo F Hx ischemic skin of the LLE and cellulitis s/p excision of necrotic LLE tissue to the subcutaneous tissues on POD #2. Her LLE tenderness has improved somewhat since yesterday. Denies fevers, chills, N/V, chest pain, or dyspnea. Review of Systems Constitutional: No chills, No fever Respiratory: No shortness of breath Cardiac: No chest pain, No palpitations Musculoskeletal: + problem reported (Mild LLE pain), No calf pain Skin: + problem reported (Erythema of LLE) Objective Vital Signs Vitals: Tmax: 36.8, Tcurr: 36.7, HR: 61 (range: 61-68), BP: 154/81, RR: 16, SpO2: 99% on NC 2 L Physical Exam General Appearance: WD/WN, no apparent distress Respiratory/Chest: lungs clear Cardiovascular: regular rate, rhythm, no murmur Extremities: normal range of motion, no calf tenderness, + pertinent finding ( Erythema of the LLE extending superiorly toward groin but appears much improved from yesterday (01/16)) Neurologic/Psychiatric: alert, normal mood/affect, oriented x 3 Comments: Exam of operative site: Kerlix bandage in place with no visible strikethrough. Minimal tenderness. I/O: Total in: 0 Total out: 900 UOP: 900 Net: -900 Laboratory Results Culture of LLE wound showed Pseudomonas aeruginosa (few) and Klebsiella oxytoca (few) Last 24 Hours Test 01/16/17 07:54 01/16/17 08:17 01/16/17 11:49 01/16/17 16:43 Prothrombin Time 12.7 SECONDS Prothromb Time International Ratio 1.2 Creatinine 0.90 mg/dl Est Creatinine Clear Calc Drug Dose 55.6 ml/min Estimated GFR () 72.5 Estimated GFR (Non- 62.5 Bedside Glucose 136 mg/dl 155 mg/dl 159 mg/dl Test 01/16/17 20:52 01/17/17 03:30 Bedside Glucose 188 mg/dl Prothrombin Time 13.1 SECONDS Prothromb Time International Ratio 1.2 Creatinine 0.90 mg/dl Est Creatinine Clear Calc Drug Dose 55.6 ml/min Estimated GFR () 72.5 Estimated GFR (Non- 62.5 Vancomycin Level Trough 18.2 mcg/ml Assessment and Plan Assessment and Plan: ASSESSMENT: 76 yo F s/p excision of necrotic LLE tissue to the subcutaneous tissues on POD # 2 who shows improvement in the area of erythema on her LLE. PLAN: ID: -Area of LLE erythema is much improved since yesterday (01/16). Continue to monitor. -Cultures showed P aeruginosa and K oxytoca. Currently receiving Cefepime. -Continue dressing changes and routine wound-care. Hospital wound-care team is involved. Neuro: -Pain currently well-controlled on PO meds. -Encourage OOB as tolerated. CV: -No tachycardia. Pulm: -No issues. Encourage incentive spirometry. Heme: -On Coumadin for AF and INR 1.2 (unchanged since 01/16). Continue to monitor. Endo: -Hx DM. Continue sliding scale and POC blood glucose monitoring. Disposition: Remain as inpatient.
[2017-01-17 06:57] VITALS: BP 149/88; PULSE 59; TEMP 36.7; O2SAT 99
--- NOTE | 2017-01-17 08:18 | Surgery Progress Note ---
Surgery Progress Note Date of Service Jan 17, 2017. Subjective Post OP Day: 2 No complaints (erythema improved) Objective Vital Signs: Date Time Temp Pulse Resp B/P Pulse Ox O2 Delivery O2 Flow Rate FiO2 01/17/17 07:20 Room Air 01/17/17 06:57 36.7 59 17 149/88 99 Room Air 01/17/17 03:08 36.7 61 16 154/81 99 Nasal Cannula 2.0 01/16/17 23:30 Room Air 01/16/17 23:20 36.5 60 16 136/75 99 Nasal Cannula 2.0 01/16/17 19:26 36.6 68 19 126/72 97 Room Air 01/16/17 15:39 36.7 64 17 145/85 91 Room Air 01/16/17 15:15 Room Air 01/16/17 11:02 36.8 64 18 137/82 93 Room Air Incision(s): intact (dressing), erythema (resolving) Laboratory Results: Results Past 24 Hours Test 01/16/17 08:17 01/16/17 11:49 01/16/17 16:43 01/16/17 20:52 Range/Units Bedside Glucose 136 155 159 188 70-90 mg/dl Test 01/17/17 03:30 Range/Units Prothrombin Time 13.1 9.0-12.0 SECONDS Prothromb Time International Ratio 1.2 0.9-1.1 Creatinine 0.90 0.60-1.20 mg/dl Est Creatinine Clear Calc Drug Dose 55.6 ml/min Estimated GFR () 72.5 Estimated GFR (Non- 62.5 Vancomycin Level Trough 18.2 SEE COMMENT mcg/ml Assessment & Plan s/p debridement LLE wound erythema much improved wound care following
[2017-01-17] MEDS: RANITIDINE HCL 150 MG TAB PO SCH (09:17)
[2017-01-17] MEDS: METOPROLOL SUCC 25MG EXT REL TAB PO SCH (09:17)
[2017-01-17] MEDS: MAGNESIUM CHLORIDE 64MG DELAYED REL TAB PO SCH (09:18)
[2017-01-17] MEDS: FERROUS SULFATE 325 MG TAB PO SCH (09:18)
[2017-01-17] MEDS: CHOLECALCIFEROL 1000 INTER.UNIT TAB PO SCH (09:18)
[2017-01-17] MEDS: CEROVITE ADV FORMULA TAB PO SCH (09:18)
[2017-01-17] MEDS: ASPIRIN 81 MG ECTAB PO SCH (09:18)
[2017-01-17] MEDS: CYANOCOBALAMIN 500 MCG TAB (VIT B-12) PO SCH (09:18)
[2017-01-17] MEDS: INSULIN ASPART 100 UNITS/ML 3 ML PEN SC SCH ×3 (09:33→17:29)
[2017-01-17] MEDS: ACETAMINOPHEN 325 MG TAB PO PRN ×2 (09:34→17:18)
[2017-01-17] MEDS ORDERED: CIPR-255 PO (10:37)
--- NOTE | 2017-01-17 10:39 | Discharge Instructions ---
Discharge Instructions Date of Service Jan 17, 2017. Admission Reason for Admission: Cellulitis Of Left Lower Extremity Discharge Discharge Diagnosis / Problem: Cellulitis of lower extremity Discharge Goals Goal(s): Decrease discomfort, Improve function, Increase independence, Improve disease control, Diagnostic testing, Therapeutic intervention Activity Recommendations Activity Limitations: resume your previous activity Exercise/Sports Limitations: none . Instructions / Follow-Up Instructions / Follow-Up Patient to be discharged home with home health Will need follow up with wound care, to be scheduled Discharged on antibiotic cipro (500mg) 1 capsule twice a day for 7 days Please follow up with Dr Mayo in 1-2 weeks If worsening fevers, swelling, redness please report to ER Current Hospital Diet Patient's current hospital diet: AHA Diet (Heart Healthy), Diabetes Type 2 Diet Discharge Diet Recommended Diet: Diabetes Type 2 Diet Procedures Procedures Performed: Left Lower Extremity Debridement Necrotic Area(5x4 cm to subcutaneous tisue) Pending Studies Studies pending at discharge: no Laboratory Results Hemoglobin A1c Test 12/20/16 09:45 Range/Units Estimated Average Glucose 137 mg/dl Hemoglobin A1c 6.4 H 4.5-5.6 % Lipid Panel Test 12/20/16 09:45 Range/Units Triglycerides Level 81 0-150 mg/dl Cholesterol Level 128 0-200 mg/dl HDL Cholesterol 63 mg/dl Cholesterol/HDL Ratio 2.0 LDL Cholesterol, Calculated 49 mg/dl Medical Emergencies . Who to Call and When: Medical Emergencies: If at any time you feel your situation is an emergency, please call 911 immediately. . Non-Emergent Contact Non-Emergency issues call your: Primary Care Provider Call Non-Emergent contact if: you have a fever, your pain is worsening . . "Provider Documentation" section prepared by Sourav Hendrickson. VTE Core Measure Inpt VTE Proph given/why not?: Warfarin (Coumadin)
--- NOTE | 2017-01-17 12:11 | Discharge Summary ---
Discharge Summary Date of Service Jan 17, 2017. Discharge Summary Admission Date: Jan 15, 2017 at 02:28 Discharge Date: Jan 17, 2017 Discharge Disposition: Home with services Principal Diagnosis: Left leg cellulitis Problems/Secondary Diagnoses: (1) AMI (acute myocardial infarction) Status: Chronic (2) Anticoagulated on Coumadin Status: Chronic (3) Atrial fibrillation Status: Chronic (4) CAD (coronary artery disease) Status: Chronic (5) GERD (gastroesophageal reflux disease) Status: Chronic (6) Hyperlipidemia Status: Chronic (7) ELISEO (obstructive sleep apnea) Status: Chronic (8) Percutaneous transluminal coronary angioplasty status Status: Chronic (9) Sarcoidosis Status: Chronic Immunizations: Have You Had Influenza Vaccine: Yes Influenza Vaccine Date: Aug 19, 2013 History of Tetanus Vaccine?: Yes Tetanus Immunization Date: Jan 17, 2013 History of Pneumococcal: Yes Pneumococcal Date: Jun 10, 2009 History of Hepatitis B Vaccine: No Consultations: Wound care General Surgery Medication Reconciliation New Medications: Ciprofloxacin Hcl (Cipro) 500 Mg Tab 500 MG PO BID for 7 Days, #14 TAB Continued Medications: Aspirin (Aspirin Low Dose) 81 Mg Tab 81 MG PO 3XWK TAKE THIS MEDICATION EVERY SUNDAY,SUNDAY AND SUNDAY Atorvastatin (Atorvastatin Calcium) 10 Mg Tab 10 MG PO QPM Cholecalciferol (Vitamin D 1000 Unit) 1,000 Unit Cap 1000 INTER.UNIT PO DAILY, CAP Cyanocobalamin (Vitamin B12) 1,000 Mcg Tab 1000 MCG PO DAILY Ferrous Sulfate (Ferrous Sulfate) 325 Mg Tab 325 MG PO DAILY Fluticasone Propionate (Fluticasone Propionate) 120 Sprays/6000 Mcg Inha 2 SPRAYS [place] DAILY PRN for Allergy Symptoms Folic Acid (Folvite) 1 Mg Tab 1 MG PO DAILY, TAB Furosemide (Furosemide) 20 Mg Tab 20 MG PO 3XWK TAKE THIS MEDICATION EVERY SUNDAY,SUNDAY AND SUNDAY Ipratropium-Albuterol (Combivent Respimat) 1 Aer Aer 1 PUFF INH UD PRN for Shortness of Breath, INH Magnesium Chloride (Slow-Mag Tab) 64 Mg Tabcr 64 MG PO BID, TAB Metformin Hcl (Fortamet) 500 Mg Tab 500 MG PO QPM Metformin HCl (Metformin HCl) 500 Mg Tab 1000 MG PO QAM Metoprolol Succinate (Metoprolol Succinate ER) 25 Mg Tabcr 37.5 MG PO QAM Metoprolol Succinate (Metoprolol Succinate ER) 25 Mg Tabcr 50 MG PO QPM Montelukast Sod (Montelukast Sodium) 10 Mg Tab 10 MG PO HS Multiple Vitamin (Multi Vitamin Daily) 1 Tab Tab 1 TAB PO DAILY Nitroglycerin (Nitrostat) 0.4 Mg Tab 0.4 MG UT UD PRN for Chest Pain, BTL PLACE ONE TABLET UNDER THE TONGUE EVERY 5 MINUTES FOR UP TO 3 DOSES IF NEEDED FOR CHEST PAIN. Ocuvite Preservision (Ocuvite Preservision) 1 Tab Tab 1 TAB PO BID, TAB Oxycodone/Acetaminophen 5MG/325MG (Percocet 5MG/325MG) Tab 1-2 TABS PO Q4H PRN for Pain, TAB PAIN Probiotic Product (Probiotic) 1 Cap Cap 1 CAP PO QPM Ranitidine HCl (Ranitidine HCl) 150 Mg Tab 150 MG PO BID Vitamin E (Vitamin E 400 Iu) Unknown Strength Cap 1 TAB PO DAILY, CAP Warfarin Sodium (Warfarin Sodium) 4 Mg Tab 4 MG PO 5XWK TAKE 4 MG EVERY SUNDAY,SUNDAY,SUNDAY,SUNDAY AND SUNDAY OR OTHERWISE DIRECTED TO TAKE BY ANTICOAGULATION CLINIC/MD. Warfarin Sodium (Warfarin Sodium) 4 Mg Tab 2 MG PO 2XWK, TAB TAKE HALF A TABLET (2 MG) EVERY SUNDAY AND SUNDAY OR OTHERWISE DIRECTED TO TAKE BY ANTICOAGULATION CLINIC/MD Discontinued Medications: Cephalexin (Cephalexin) 500 Mg Tab 500 MG PO DAILY, TAB Discharge Exam Review of Systems: Constitutional: No chills, No fever Respiratory: No cough, No shortness of breath, No sputum, No wheezing Cardiovascular: No chest pain, No orthopnea Abdomen: No nausea, No vomiting Musculoskeletal: + muscle pain, No calf pain, No joint pain Genitourinary - Female: No dysuria, No urinary frequency, No urinary urgency Neurologic: No paralysis, No weakness Physical Exam: General Appearance: WD/WN, no apparent distress Neck: supple, no adenopathy Cardiovascular: no edema, no gallop Abdomen / GI: non tender, soft Neurologic/Psychiatric: alert, oriented x 3 Hospital Course 76 y/o F Hx CAD, sarcoid, AF-pacer. 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 She developed cellulitis in the surrounding area and presented to an outpt clinic. She was placed on a course of Keflex however the cellulitis has spread over the past week and is now extensive and approaching her groin area. She may have had an accompanying low grade fever. 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 She denied SOB, N/V/D or dysuria. 1) Cellulitis - spread has been rapid and extensive and is approaching her groin on the L - Pt was placed on cefepime and vanc initially then vanc was dced as MRSA nares were neg. wound culture pos for pseudomonas and klebsiella oxytoca. surgery consulted for excision of necrotic skin. Wound care consulted and wound vac placed 01/17/17. Will be discharged on cipro 500 mg PO BID and wound vac f/u 2) AF - INR is subtherapeutic - she states she has been struggling with her dose for a while. Rate controlled. Coumadin resumed. 3) CAD - cont ASA - restart Coumadin as possible, cont Statin and B reynlod. 4) Sarcoid - not currently active - inhalers provided PRN. 5) DM - Metformin held - sliding scale provided. Full code - Heparin provided - normally on Coumadin Total Time Spent: Greater than 30 minutes This includes examination of the patient, discharge planning, medication reconciliation, and communication with other providers. Discharge Instructions Please refer to the electronic Patient Visit Report (Discharge Instructions) for additional information. Additional Copies To Farheen Mayo M.D.
[2017-01-17 15:25] VITALS: BP 149/88; PULSE 59; TEMP 36.7; O2SAT 99
[2017-01-17] MEDS: WARFARIN SOD 4 MG TAB PO SCH (17:18)
--- NOTE | 2017-01-25 08:48 | CONSULTATION REPORT ---
DATE OF CONSULTATION: 01/17/2017 CHIEF COMPLAINT: Nonhealing wound, left lower extremity. HISTORY OF PRESENT ILLNESS: The patient was recently admitted to [facility] due to a development of an infection following a traumatic wound to her left lower leg approximately one week prior. The patient recently had surgical debridement per Dr. Hernandez for this problem. The patient currently denies any fever, chills or night sweats. The patient denies any chest pain, shortness of breath, abdominal discomfort, nausea or vomiting. The patient has no other systemic complaints at this time. PAST MEDICAL HISTORY: Positive for AL, atrial fibrillation, hypertension, coronary artery disease, GERD, hyperlipidemia, MRSA, spinal stenosis, sleep apnea, sarcoidosis. PAST SURGICAL HISTORY: Rotator cuff surgery, coronary angioplasty, total knee replacement. MEDICATIONS: Noted in the nursing notes were reviewed. ALLERGIES: ADHESIVES AND MORPHINE. REVIEW OF SYSTEMS: Ten systems were reviewed in their entirety and positive findings were noted in the chief complaint and history of present illness. PHYSICAL EXAMINATION: GENERAL: The patient is sitting in hospital bed in no acute distress, alert and cooperative throughout the examination. HEENT: Pupils equal and reactive to light. Sclerae clear. NECK: Supple. CHEST: Heart and lungs clear to auscultation. EXTREMITIES: Reveals the presence of a postoperative traumatic wound measuring 7.5 x 3.5 x 0.6 cm. There is no central slough. There is no active drainage, some minimal bleeding present following dressing removal and no periwound erythema or tenderness noted. NEUROLOGIC: The patient is alert and oriented x3. No focal deficits noted. IMPRESSION: Postoperative traumatic wound left lower extremity. PLAN: At this time, the wound site will be managed with a wound VAC, black foam, 125 mm of negative pressure. The wound VAC changed on Sunday, Sunday, Sunday. The patient will be reevaluated on an outpatient basis and continue to be monitored.
[2017-02-19] MEDS ORDERED: CEPH500C2 PO (14:52)
[2017-02-26] MEDS ORDERED: CEPH500C2 PO (14:13)
[2017-03-05] MEDS ORDERED: CEFU500T16 PO (15:18)
[2017-03-22] MEDS ORDERED: CPR750 PO (13:56)
[2017-03-22] MEDS ORDERED: CEPH500C2 PO (14:24)
[2017-06-28] MEDS ORDERED: CEPH500C2 PO (13:14)
== END 2017-01-17 16:58 | disposition home or self-care (01) | DRG 572 ==
LOC: ENRESERVTM → ENRESERVDT → C.EDB 21:24 → C.MSW 01-15 02:28
PROVIDERS: ADMIT Internal Medicine; ATTEND Hospitalist
PROC: 0JBP0ZZ Excision of Left Lower Leg Subcutaneous Tissue and Fascia, Open Approach (ICD-10-PCS; principal; 2017-01-15 07:45)
DX: L03.116 Cellulitis of left lower limb (principal); I10 Essential (primary) hypertension; I25.2 Old myocardial infarction; I48.2 Chronic atrial fibrillation; K21.9 Gastro-esophageal reflux disease without esophagitis; G47.33 Obstructive sleep apnea (adult) (pediatric); Z86.14 Personal history of Methicillin resistant Staphylococcus aureus infection; E78.00 Pure hypercholesterolemia, unspecified; Z79.01 Long term (current) use of anticoagulants; I25.10 Atherosclerotic heart disease of native coronary artery without angina pectoris; Z96.659 Presence of unspecified artificial knee joint; D86.9 Sarcoidosis, unspecified; Z83.3 Family history of diabetes mellitus; Z80.9 Family history of malignant neoplasm, unspecified; Z79.82 Long term (current) use of aspirin

== ENCOUNTER → 2017-02-13 | Outpatient (CLI) | payer OTHER ==
[~2017-02-13] MED LIST changes: +CEFU500T16 PO; +CEPH500C2 PO; -CEPH500T PO; +CIPR-255 PO; +CPR750 PO; +FERR1TAB62 PO; -FERR325T PO; +SLWMEC PO; +SPRIN/30 INH
--- NOTE | 2017-02-13 15:43 | MAMMOGRAPHY REPORT ---
BILATERAL DIGITAL SCREENING MAMMOGRAM WITH CAD: 02/13/2017 CLINICAL HISTORY: Routine screening. Patient has no complaints. TECHNIQUE: Bilateral CC and MLO views were obtained. Current study was also evaluated with a Comput er Aided Detection (CAD) system. COMPARISON: Comparison is made to exams dated: 12/15/2015 mammogram, 12/14/2014 mammogram, 12/03/2013 ma mmogram, 11/29/2012 mammogram, 11/24/2011 mammogram, and 11/23/2010 mammogram - [facility] enter. BREAST COMPOSITION: There are scattered areas of fibroglandular density in both breasts. FINDINGS: A new pacemaker projects over the superior posterior left breast on the MLO view. There is a possible new cluster of microcalcifications in the upper outer middle to posterior left b reast, for which additional spot magnification views are recommended. A few other scattered and grouped benign-appearing microcalcifications are seen bilaterally. There are minimal vascular calcifications in the breasts. No other suspicious mass, architectural distorti on or cluster of microcalcifications is seen. IMPRESSION: ACR BI-RADS CATEGORY 0: INCOMPLETE EVALUATION: NEED ADDITIONAL IMAGING EVALUATION The possible new cluster of microcalcifications in the upper outer left breast needs additional eval uation. The patient will be called to schedule an appointment. Approximately 10% of breast cancers are not detected with mammography. A negative mammographic repor t should not delay biopsy if a clinically suggestive mass is present. Grace Garcia M.D. ay/:02/13/2017 15:23:53 Parking Technician: Chetna STARKS(Leon)(Devante), [facility] letter sent: Addl Imaging 0 BI-RADS Code: ACR BI-RADS Category 0: Incomplete Evaluation: Need Additional Imaging Evaluation
== END | disposition home or self-care (01) ==
LOC: C.MAMM 13:25
PROVIDERS: ATTEND Family Medicine
DX: Z12.31 Encounter for screening mammogram for malignant neoplasm of breast (principal); R92.0 Mammographic microcalcification found on diagnostic imaging of breast

== ENCOUNTER → 2017-02-15 | Outpatient (CLI) | payer OTHER ==
[2017-02-15 12:57] LABS: BLOOD UREA NITROGEN 23 mg/dl (7-18); BUN/CREATININE RATIO 22.7 (10-20); CALCIUM 9.6 mg/dl (8.5-10.1); CARBON DIOXIDE 33 mmol/L (21-32); CHLORIDE 100 mmol/L (98-107); GLUCOSE 122 mg/dl (70-99); POTASSIUM 4.2 mmol/L (3.5-5.1); SODIUM 140 mmol/L (136-145)
== END | disposition home or self-care (01) ==
LOC: C.LABPVFM 10:19
PROVIDERS: ATTEND Family Medicine
DX: S81.809A Unspecified open wound, unspecified lower leg, initial encounter (principal); X58.XXXA Exposure to other specified factors, initial encounter; R60.9 Edema, unspecified

== ENCOUNTER → 2017-02-21 | Outpatient (CLI) | payer OTHER ==
[~2017-02-21] MED LIST changes: -CIPR-255 PO
--- NOTE | 2017-02-21 16:05 | MAMMOGRAPHY REPORT ---
UNILATERAL LEFT DIGITAL DIAGNOSTIC MAMMOGRAM: 02/21/2017 CLINICAL HISTORY: Callback from screening mammogram for left breast calcifications. TECHNIQUE: Spot magnification left CC and ML views were obtained. COMPARISON: Comparison is made to exams dated: 02/13/2017 mammogram, 12/15/2015 mammogram, 12/14/2014 vick mogram, 12/03/2013 mammogram, 11/29/2012 mammogram, and 11/24/2011 mammogram - [facility] nter. BREAST COMPOSITION: There are scattered areas of fibroglandular density in the left breast. FINDINGS: Spot magnification views of the left breast demonstrate loosely grouped punctate and shreya phous calcifications in the left upper outer quadrant. When compared to prior exams, the calcificat ions are likely stable dating back to the 2010 exam cc view and possibly also the 2008 exam cc view, although it is difficult to make an accurate comparison due to differences in mammographic techniqu e (currently using [employer] equipment, previously using [employer] equipment). Given the probable long-term stability, the calcifications are probably benign. Recommend follow-up diagnostic mammograms of the left breast in 6 months to confirm stability on spot magnification views. IMPRESSION: ACR-BI-RADS CATEGORY 3: PROBABLY BENIGN Loosely grouped calcifications in the left upper outer quadrant are likely stable dating back to the 2010 and possibly the 2008 exams, and are probably benign. Recommend follow-up diagnostic mammogra ms of the left breast in 6 months to confirm stability on spot magnification views. The patient has been verbally notified of the results. Approximately 10% of breast cancers are not detected with mammography. A negative mammographic repor t should not delay biopsy if a clinically suggestive mass is present. Indira Lopez M.D. ah/:02/21/2017 15:02:30 Can Stacker: Tete Grady, [facility] letter sent: Follow Up Recommended 3 BI-RADS Code: ACR-BI-RADS Category 3: Probably Benign
== END | disposition home or self-care (01) ==
LOC: C.MAMM 13:26
PROVIDERS: ATTEND Family Medicine
DX: R92.1 Mammographic calcification found on diagnostic imaging of breast (principal)

== ENCOUNTER → 2017-02-28 | Outpatient (CLI) | payer OTHER ==
--- NOTE | 2017-02-28 12:59 | DIAGNOSTIC IMAGING REPORT ---
TWO VIEW CHEST CLINICAL HISTORY: Cough and fever. FINDINGS: PA and lateral chest radiographs are compared to study dated 05/20/2016. The PA view is degraded by large body habitus and patient rotation. A 3-lead cardiac pacemaker is unchanged in position. The heart appears mildly enlarged and there is atherosclerotic calcification of the thoracic aorta. There is mild central pulmonary vascular congestion. There are low lung volumes, with chronic elevation of the right hemidiaphragm and bibasilar atelectasis. No airspace consolidation, large pleural effusion, or pneumothorax is seen. The skeletal structures are osteopenic. Advanced arthritic change is seen in the shoulders. Extensive fusion hardware is partially imaged in the lower spine. IMPRESSION: 1. Cardiomegaly and cardiac pacemaker. Mild central pulmonary vascular congestion is suggested. 2. Low lung volumes. There is no airspace consolidation typical for pneumonia or large pleural effusion. Electronically signed by: Christ Woodward M.D. 02/28/2017 12:56 PM Dictated Date/Time: 02/28/2017 12:54 PM
== END | disposition home or self-care (01) ==
LOC: C.RADPV 12:35
PROVIDERS: ATTEND Family Medicine
DX: R05 Cough (principal); R50.9 Fever, unspecified; I51.7 Cardiomegaly; Z95.0 Presence of cardiac pacemaker

== ENCOUNTER → 2017-03-07 | Outpatient (CLI) | payer OTHER ==
--- NOTE | 2017-03-07 12:36 | DIAGNOSTIC IMAGING REPORT ---
CHEST 2 VIEWS ROUTINE CLINICAL HISTORY: Fatigue Shortness of breath COMPARISON STUDY: 02/28/2017 FINDINGS: The cardiac images all contours remain stable. There are postsurgical changes within the thoracolumbar spine. As a left subclavian dual-chamber central venous pacemaker present. There is diffuse elevation of the interstitium, consistent with either pulmonary vascular congestion, or a bilateral interstitial inflammatory process.[ IMPRESSION: Persistent elevation of the interstitium. This could be secondary to either a bilateral interstitial inflammatory/infectious process, or pulmonary vascular congestion. Clinical and radiographic follow-up is recommended. Electronically signed by: Dillon Bagley M.D. 03/07/2017 12:34 PM Dictated Date/Time: 03/07/2017 12:33 PM
== END | disposition home or self-care (01) ==
LOC: C.RADPV 12:11
PROVIDERS: ATTEND Family Medicine
DX: R53.83 Other fatigue (principal); R06.02 Shortness of breath

== ENCOUNTER → 2017-06-13 | Outpatient (CLI) | payer OTHER ==
[~2017-06-13] MED LIST changes: -CEFU500T16 PO; -FERR1TAB62 PO; +FERR325T PO; -SLWMEC PO; -SPRIN/30 INH
[2017-06-13 17:28] LABS: ALT/SGPT 17 U/L (12-78); AST/SGOT 23 U/L (15-37); BLOOD UREA NITROGEN 19 mg/dl (7-18); BUN/CREATININE RATIO 19.7 (10-20); CALCIUM 10.3 mg/dl (8.5-10.1); CARBON DIOXIDE 28 mmol/L (21-32); CHLORIDE 104 mmol/L (98-107); CREATININE 0.97 mg/dl (0.60-1.20); GLUCOSE 112 mg/dl (70-99); MAGNESIUM 1.5 mg/dl (1.8-2.4); SODIUM 139 mmol/L (136-145)
[2017-06-13 17:32] LABS: ALB/GLOB RATIO 0.9 (0.9-2); ALKALINE PHOSPHATASE 83 U/L (45-117); CHOLESTEROL 139 mg/dl (0-200); CHOLESTEROL/HDL RATIO 2.6; HDL CHOLESTEROL 54 mg/dl; LDL CHOLESTEROL CALCULATED 72 mg/dl; TRIGLYCERIDES 63 mg/dl (0-150); VERY LOW DENSITY LIPOPROT CALC 13 mg/dl
[2017-06-14 06:14] LABS: ESTIMATED AVERAGE GLUCOSE 120 mg/dl; HA1C FLAG Normal (Normal)
== END | disposition home or self-care (01) ==
LOC: C.LABPVFM 10:59
PROVIDERS: ATTEND Family Medicine
DX: I10 Essential (primary) hypertension (principal); E78.5 Hyperlipidemia, unspecified; I48.0 Paroxysmal atrial fibrillation; Z79.01 Long term (current) use of anticoagulants; R30.9 Painful micturition, unspecified; E11.21 Type 2 diabetes mellitus with diabetic nephropathy; E83.42 Hypomagnesemia

== ENCOUNTER → 2017-06-25 | Outpatient (CLI) | payer OTHER ==
--- NOTE | 2017-06-25 16:39 | DIAGNOSTIC IMAGING REPORT ---
C-SPINE ROUTINE 4 OR 5 VIEWS CLINICAL HISTORY: Neck pain status post injury COMPARISON STUDY: No previous studies for comparison. FINDINGS: The prevertebral soft tissues are normal. No acute fractures are visualized. There are moderately advanced multilevel degenerative changes. The provided oblique views are suboptimally positioned. There is suspected foraminal encroachment due to uncinate spurs. There is nonspecific prominence the right superior hilum. IMPRESSION: Moderately advanced multilevel degenerative changes. No acute fractures or traumatic subluxations are visualized on conventional radiographic imaging Electronically signed by: Dillon Bagley M.D. 06/25/2017 4:37 PM Dictated Date/Time: 06/25/2017 4:35 PM
== END | disposition home or self-care (01) ==
LOC: C.RADPV 16:14
PROVIDERS: ATTEND Family Medicine
DX: S16.1XXA Strain of muscle, fascia and tendon at neck level, initial encounter (principal); X58.XXXA Exposure to other specified factors, initial encounter; M79.662 Pain in left lower leg; M79.89 Other specified soft tissue disorders; Z86.718 Personal history of other venous thrombosis and embolism

== ENCOUNTER → 2017-06-28 | Outpatient (CLI) | payer OTHER ==
--- NOTE | 2017-06-28 14:32 | DIAGNOSTIC IMAGING REPORT ---
LEFT VENOUS DOPP LOWER EXT UNILAT CLINICAL HISTORY: L LEG PAIN AND SWELLINH pain. Edema. TECHNIQUE: Venous Doppler COMPARISON STUDY: 01/14/2017 FINDINGS: No evidence for deep venous thrombosis. 3 cm popliteal cyst posterior to the left pain IMPRESSION: No evidence for deep venous thrombosis. Small popliteal cyst The above report was generated using voice recognition software. It may contain grammatical, syntax or spelling errors. Electronically signed by: Lion Means M.D. 06/28/2017 2:30 PM Dictated Date/Time: 06/28/2017 2:29 PM
== END | disposition home or self-care (01) ==
LOC: C.ULTRBC 14:01
PROVIDERS: ATTEND Emergency Medicine
DX: M79.662 Pain in left lower leg (principal); M79.89 Other specified soft tissue disorders; Z86.718 Personal history of other venous thrombosis and embolism

== ENCOUNTER → 2017-07-18 | Outpatient (CLI) | payer OTHER ==
[~2017-07-18] MED LIST changes: -CPR750 PO
--- NOTE | 2017-07-18 11:22 | DIAGNOSTIC IMAGING REPORT ---
CERVICAL SPINE W/O CT DOSE: 264.08 mGy.cm HISTORY: Pain. Neuropathy. CERVICAL SPONDYLOSIS WITH MYELOPATHY TECHNIQUE: Multiaxial CT images of the cervical spine were performed and reformatted in the sagittal and coronal plane without the use of contrast. A dose lowering technique was utilized adhering to the principles of ALARA. COMPARISON: None. FINDINGS: Considerable degenerative disc change throughout the entire cervical region. This predominates from C4 through C7. Considerable degenerative change of the C1-C2 complex with peripheral dystrophic calcification. No evidence for compression deformity. Transaxial images throughout the entire cervical region again show degenerative change of the C1-C2 complex. No significant compromise of the spinal canal or neural foramina are present. C2-C3 level again shows no significant compromise of the spinal canal. C3-C4 level shows moderate osteophytic narrowing of the right and to lesser extent left neural foramina. C4-C5 also shows a broad-based posterior osteophytic complex creates significant narrowing of the right and to lesser extent left neural foramina. Impact upon the cervical canal is minimal. Broad-based posterior osteophytic complex C5-C6. This creates moderate impact upon the anterior aspect of the spinal canal as well as narrowing of the neuroforamina bilaterally. Broad-based posterior osteophyte complex C6-C7 with mild narrowing left neuroforamina. C7-T1 level appears unremarkable based on nonenhanced CT scan. IMPRESSION: 1. Considerable degenerative disc change from C4 through T1. 2. No evidence for compression deformity. 3. Degenerative change with moderate dystrophic calcification of the C1-C2 complex. 4. Posterior osteophytic formation from C4 through through C7. Partial effacement of the anterior subarachnoid space and at least moderate narrowing of the neuroforamina bilaterally as discussed. The above report was generated using voice recognition software. It may contain grammatical, syntax or spelling errors. Electronically signed by: Lion Means M.D. 07/18/2017 11:20 AM Dictated Date/Time: 07/18/2017 11:16 AM
== END | disposition home or self-care (01) ==
LOC: C.CTS 10:22
PROVIDERS: ATTEND Orthopaedic Surgery Orthopaedic Surgery of the Spine
DX: M47.12 Other spondylosis with myelopathy, cervical region (principal)

== ENCOUNTER → 2017-09-21 | Outpatient (CLI) | payer OTHER ==
[~2017-09-21] MED LIST changes: +FERR1TAB62 PO; -FERR325T PO
--- NOTE | 2017-09-21 15:38 | MAMMOGRAPHY REPORT ---
UNILATERAL LEFT DIGITAL DIAGNOSTIC MAMMOGRAM WITH CAD: 09/21/2017 CLINICAL HISTORY: Short interval follow-up of left breast calcifications. TECHNIQUE: Current study was also evaluated with a Computer Aided Detection (CAD) system. Left CC a nd MLO and spot magnification left CC and ML views were obtained. The images are somewhat suboptimal due to difficulties with patient positioning due to her anteriorly located pacemaker. COMPARISON: Comparison is made to exams dated: 02/21/2017 mammogram, 02/13/2017 mammogram, 12/15/2015 vick mogram, 12/14/2014 mammogram, 12/03/2013 mammogram, and 11/29/2012 mammogram - [facility] er. BREAST COMPOSITION: There are scattered areas of fibroglandular density in the left breast. FINDINGS: Spot magnification views of the left breast again demonstrate loosely grouped punctate and amorphous calcifications within the left upper outer quadrant, best seen on the cc views. Compared t o prior exams, the calcifications are stable on spot magnification views dated 02/21/2017. Additional ly, the calcifications are likely not significantly changed compared to the cc views from the 2008 an d 2010 exams although it is difficult to make accurate comparison due to technical differences. The calcifications are probably benign and recommend another short interval follow-up. The remainder of the left breast is stable compared to prior exams, without suspicious masses, calcif ications, or areas of architectural distortion noted. Other scattered benign-appearing left breast c alcifications are stable. A pacemaker obscures portions of the left superior breast. IMPRESSION: ACR-BI-RADS CATEGORY 3: PROBABLY BENIGN Loosely grouped calcifications in the left upper outer quadrant are stable compared to the February 2017 exam and likely also the 2010 and 2008 exams, and are probably benign. Recommend bilateral diagnost ic mammograms in 6 months, to reevaluate the left breast calcifications and for routine mammography o f the right breast. The patient has been verbally notified of the results. Approximately 10% of breast cancers are not detected with mammography. A negative mammographic report should not delay biopsy if a clinically suggestive mass is present. Indira Lopez M.D. /:09/21/2017 14:45:10 Computer Hardware Designer: Clyde STARKS(R)(Devante), [facility] letter sent: Follow Up Recommended 3 BI-RADS Code: ACR-BI-RADS Category 3: Probably Benign
== END | disposition home or self-care (01) ==
LOC: C.MAMM 13:45
PROVIDERS: ATTEND Family Medicine
DX: R92.1 Mammographic calcification found on diagnostic imaging of breast (principal)

== ENCOUNTER → 2017-10-09 | Outpatient (CLI) | payer OTHER ==
[~2017-10-09] MED LIST changes: -FOLI1TAB7 PO; +FOLI1TAB8 PO; -LPT10 PO; -MAGNTAB4 PO; -METF-80 PO; +SLWMEC PO; +SPRIN/30 INH
== END | disposition home or self-care (01) ==
LOC: C.LABSPEC 17:27
PROVIDERS: ATTEND Obstetrics & Gynecology
DX: N76.4 Abscess of vulva (principal)

== ENCOUNTER 2017-11-07 17:05 | Inpatient (IN) | payer OTHER ==
[~2017-11-07] VITALS: Ht 154.9 cm; Wt 80.9 kg
[~2017-11-07 17:05] MED LIST changes: -AMOX875T PO; -ASPI1TAB48 PO; -AZIT-57 PO; -CHOL100027 PO; -CIPR1TAB11 PO; -CYAN100020 PO; -ENOX80IN SQ; -FERR1TAB23 PO; -FERR1TAB62 PO; -FLNIN/ NAE; -FOLI1TAB8 PO; -FRS/40 PO; -GLC/500 PO; -GLC500 PO; -IPRA1AER2 INH; -LSX/40 PO; -MISCCHW PO; -MULT-190 PO; -MULT1CHW37 PO; -MULTCAP33 PO; -NTRGSL/4 UT; -OXYC-57 PO; -OXYC-609 PO; -OXYC-643 PO; -OXYC1CAP5 PO; -PRED10TA PO; -RANI150T2 PO; -SLWMEC PO; -SNG10 PO; -TPRSR/25 PO; -TYLOTC325 PO; -WARF-283 PO
[2017-11-07] MEDS ORDERED: METHYLPREDNISOLONE IV 40 MG in SYRINGE 0 ML IV STA (17:26)
[2017-11-07] MEDS ORDERED: ALBUT/IPRATROP 3MG/0.5MG NEB 3 ML VIAL INH STA (17:26)
[2017-11-07 17:59] LABS: BASO % 0.2 %; BASO ABS # 0.01 K/uL (0-0.2); HEMATOCRIT 43.4 % (37-47); HEMOGLOBIN 14.1 g/dL (12.0-16.0); LYMPH % 13.2 %; LYMPH ABS # 0.65 K/uL (1.2-3.4); MEAN CELL VOLUME 102.8 fL (80-100); MEAN CORPUSCULAR HEMOGLOBIN 33.4 pg (25-34); MEAN CORPUSCULAR HGB CONC 32.5 g/dl (32-36); MEAN PLATELET VOLUME 10.5 fL (7.4-10.4); MONO % 5.9 %; MONO ABS # 0.29 K/uL (0.11-0.59); NEUT % 78.7 %; NEUT ABS # 3.86 K/uL (1.4-6.5); PLATELET COUNT 229 K/uL (130-400); RED CELL DISTRIBUTION WIDTH CV 17.1 % (11.5-14.5); RED CELL DISTRIBUTION WIDTH SD 64.5 fL (36.4-46.3); WHITE BLOOD COUNT 4.91 K/uL (4.8-10.8)
--- NOTE | 2017-11-07 18:02 | DIAGNOSTIC IMAGING REPORT ---
SINGLE VIEW CHEST CLINICAL HISTORY: Dyspnea. FINDINGS: An AP, portable, upright chest radiograph is compared to study performed earlier the same day 11/07/2017. The examination is degraded by portable technique and patient rotation. A 3-lead cardiac pacemaker is unchanged in position. The heart is enlarged and there is atherosclerotic calcification of the thoracic aorta. The pulmonary vasculature is noncongested. There are low lung volumes with chronic elevation of the right hemidiaphragm and bibasilar atelectasis. No airspace consolidation, large pleural effusion, or pneumothorax is seen. The skeletal structures are osteopenic. Advanced arthritic changes are seen in the shoulders. Fusion hardware is partially imaged in the spine. IMPRESSION: 1. Cardiomegaly and cardiac pacemaker. There is no radiographic evidence of congestive failure. 2. There is no airspace consolidation or large pleural effusion. There has been no significant change from today's earlier examination. Electronically signed by: Christ Woodward M.D. 11/07/2017 6:00 PM Dictated Date/Time: 11/07/2017 5:59 PM
[2017-11-07 18:14] LABS: PTT PATIENT 44.2 SECONDS (21.0-31.0)
[2017-11-07 18:18] LABS: INR 4.5 (0.9-1.1)
[2017-11-07 18:19] LABS: ALBUMIN 3.9 gm/dl (3.4-5.0); ALT/SGPT 19 U/L (12-78); AST/SGOT 25 U/L (15-37); BLOOD UREA NITROGEN 12 mg/dl (7-18); CALCIUM 10.2 mg/dl (8.5-10.1); CARBON DIOXIDE 28 mmol/L (21-32); CREATININE 0.81 mg/dl (0.60-1.20); GLUCOSE 118 mg/dl (70-99); POTASSIUM 3.8 mmol/L (3.5-5.1); SODIUM 135 mmol/L (136-145)
[2017-11-07 18:21] LABS: INFLUENZA B ANTIGEN Neg for Influ B (NEG)
[2017-11-07 18:24] LABS: ALKALINE PHOSPHATASE 165 U/L (45-117); CKMB 2.7 ng/ml (0.5-3.6); TOTAL PROTEIN 8.7 gm/dl (6.4-8.2)
[2017-11-07] MEDS ORDERED: FUROSEMIDE 40 MG/4 ML VIAL IV STA (18:45)
[2017-11-07] MEDS ORDERED: ENOXAPARIN 40 MG/0.4 ML SYR SC SCH (20:00)
[2017-11-07] MEDS ORDERED: NITROGLYCERIN 0.4 MG SL PER TAB CHARGE UT PRN (20:00)
[2017-11-07] MEDS ORDERED: MAGNESIUM HYDROXIDE SUSP 30 ML UDC PO PRN (20:00)
[2017-11-07] MEDS ORDERED: ONDANSETRON 8MG OD TAB PO PRN (20:00)
[2017-11-07] MEDS ORDERED: FLUTICASONE PROPIONATE NA SPR 16 GM BTL NAE PRN (20:00)
--- NOTE | 2017-11-07 20:11 | EMERGENCY ROOM VISIT NOTE ---
History Report prepared by Lissa: Ariel Jacinto Under the Supervision of: Dr. Dagoberto Martel M.D. First contact with patient: 17:07 Chief Complaint: SHORTNESS OF BREATH Stated Complaint: SOB History of Present Illness The patient is a 77 year old female who presents to the Emergency Room with complaints of constant shortness of breath that started 5 to 6 days ago. The patient states that she has been experiencing shortness of breath since she has been experiencing a cold. She reports that her temperature has been 99.6 and she has been experiencing nasal drainage. The patient reports that she also has been experiencing chest tightness that returns upon exertion and with her cough. The patient states that she noticed her lower extremities were swelling the last couple of days. The patient states that she went to [facility] today due to her symptoms. She states that as she was walking she felt as if she was going to experience a syncopal episode. She reports that the doctor was getting ready to send her home when he noticed her lips were blue. The patient states that they took her pulse ox after noticing her blue lips and she reports her level was 72. She states that she was given 80 mg of Solu-Medrol and was sent to the ED. Per EMS, the patient's oxygen saturation was 100 on 3L took off oxygen and dropped to 88 on room air. They report that they put her back on oxygen and her oxygen saturation returned to normal. The patient denies nausea, vomiting, diarrhea, back pains, flank pains, urinary symptoms, numbness, tingling, and weakness. The patient states that she has a history of COPD, which she has a CPAP for. She reports that she also has a history of sarcoid, which she has an inhaler for, but she states that she does not use her inhaler often. The patient states that she also has a history of Atrial fibrillation, which she takes Warfarin and has a pacer for. Source of History: patient, EMS Onset: 5-6 days ago Position: other (global) Quality: other (global) Timing: constant Modifying Factors (Relieving): oxygen, other (Solu-Medrol) Associated Symptoms: + fevers, + cough, + chest pain (tightness), No nausea , No vomiting, No back pain, No diarrhea, No urinary symptoms, No weakness, No numbness Review of Systems See HPI for pertinent positives and negatives. A total of ten systems were reviewed and were otherwise negative. Past Medical & Surgical Medical Problems: (1) Acute CHF (2) AMI (acute myocardial infarction) (3) Anticoagulated on Coumadin (4) Arm laceration (5) Atrial fibrillation (6) Atrial fibrillation with rapid ventricular response (7) Benign hypertension (8) CAD (coronary artery disease) (9) Cellulitis (10) Cellulitis of left lower extremity (11) Cellulitis of left lower extremity without foot (12) Cellulitis of leg, right (13) GERD (gastroesophageal reflux disease) (14) Hyperlipidemia (15) Hypoxia (16) Knee hemarthrosis, left (17) Laceration of lower extremity (18) Lumbar disc disease (19) Lumbar disc disease (20) MRSA (21) ELISEO (obstructive sleep apnea) (22) Pain of left lower leg (23) Right-sided epistaxis (24) rotator cuff surgery (25) Sarcoidosis (26) Shoulder sprain (27) Skin tear of forearm without complication (28) Skin tear of lower leg without complication (29) Spinal stenosis (30) Spinal stenosis (31) Spinal stenosis (32) Supratherapeutic INR (33) Supratherapeutic INR Surgical Problems: (1) Percutaneous transluminal coronary angioplasty status (2) Postoperative state (3) Total knee replacement status Social History Problems: (1) Laceration of lower extremity Family History Cancer Diabetes mellitus FHx: heart disease FHx: hypertension Lung disease Social History Smoking Status: Never Smoker Alcohol Use: none Drug Use: none Marital Status: Housing Status: lives alone Occupation Status: retired Current/Historical Medications Scheduled Aspirin (Aspirin Low Dose), 81 MG PO 3XWK Cephalexin Monohydrate (Keflex), 500 MG PO QAM Cholecalciferol (Vitamin D 1000 Unit), 1,000 INTER.UNIT PO QPM Cyanocobalamin (Vitamin B12), 1,000 MCG PO QPM Ferrous Sulfate (Ferrous Sulfate), 325 MG PO QAM Folic Acid (Folvite), 1 MG PO QAM Furosemide (Furosemide), 20 MG PO 3XWK Magnesium Chloride (Slow-Mag Tab), 64 MG PO BID Metformin HCl (Metformin HCl), 500 MG PO BID Metoprolol Succinate (Metoprolol Succinate ER), 37.5 MG PO BID Montelukast Sod (Montelukast Sodium), 10 MG PO HS Multiple Vitamin (Multi Vitamin Daily), 1 TAB PO QAM Ocuvite Preservision (Ocuvite Preservision), 1 TAB PO BID Probiotic Product (Probiotic), 2 CAP PO QPM Ranitidine HCl (Ranitidine HCl), 150 MG PO QPM Tiotropium [place] (Spiriva Handihaler), 1 CAP INH PRN Vitamin E (Vitamin E 400 Iu), 1 TAB PO QPM Warfarin Sodium (Warfarin Sodium), 4 MG PO 5XWK Warfarin Sodium (Warfarin Sodium), 2 MG PO 2XWK Scheduled PRN Fluticasone Propionate (Fluticasone Propionate), 2 SPRAYS [place] DAILY PRN for Allergy Symptoms Ipratropium-Albuterol (Combivent Respimat), 1 PUFF INH UD PRN for Shortness of Breath Nitroglycerin (Nitrostat), 0.4 MG UT UD PRN for Chest Pain Oxycodone/Acetaminophen 5MG/325MG (Percocet 5MG/325MG), 1-2 TABS PO Q4H PRN for Pain Allergies Coded Allergies: Adhesives (Verified Allergy, Unknown, RASH, 11/07/17) Morphine (Verified Adverse Reaction, Unknown, SENSITIVITY, 11/07/17) Physical Exam Vital Signs Date Time Temp Pulse Resp B/P (MAP) Pulse Ox O2 Delivery O2 Flow Rate FiO2 11/07/17 20:04 65 20 153/82 97 Nasal Cannula 2.0 11/07/17 18:45 94 Room Air 11/07/17 18:35 61 24 100 Nasal Cannula 3.0 11/07/17 18:05 61 20 99 Nasal Cannula 3.0 11/07/17 18:01 125/62 11/07/17 17:54 60 11/07/17 17:34 121/73 11/07/17 17:31 60 22 121/73 97 Nasal Cannula 3.0 11/07/17 17:06 97 Nasal Cannula 3.0 11/07/17 17:05 36.8 70 25 157/112 98 Room Air 11/07/17 17:05 80 Room Air 11/07/17 17:05 80 Room Air Physical Exam GENERAL: Awake, alert, mildly dyspneic-appearing, in no distress HENT: Normocephalic, atraumatic. Oropharynx unremarkable. EYES: Normal conjunctiva. Sclera non-icteric. NECK: Supple. No nuchal rigidity. FROM. No JVD. RESPIRATORY: Clear to auscultation. CARDIAC: Regular rate, normal rhythm. Extremities warm and well perfused. Pulses equal. ABDOMEN: Soft, non-distended. No tenderness to palpation. No rebound or guarding. No masses. RECTAL: Deferred. MUSCULOSKELETAL: Chest examination reveals no tenderness. The back is symmetrical on inspection without obvious abnormality. There is no CVA tenderness to palpation. No joint edema. LOWER EXTREMITIES: Calves are equal size bilaterally and non-tender. 1+ lower extremity edema. Chronic venous discoloration. NEURO: Normal sensorium. No sensory or motor deficits noted. SKIN: No rash or jaundice noted. Medical Decision & Procedures ER Provider Diagnostic Interpretation: Radiology results as stated below per my review and radiologist interpretation: CHEST 2 VIEWS ROUTINE CLINICAL HISTORY: SOB dyspnea COMPARISON STUDY: 09/28/2017 FINDINGS: Chronic changes as well as postoperative changes described previously are considered stable. Diaphragms smooth. Slight bronchovascular prominence considered chronic. No focal infiltrative process. IMPRESSION: Stable chronic and postoperative change. No acute process. The above report was generated using voice recognition software. It may contain grammatical, syntax or spelling errors. Electronically signed by: Lion Means M.D. 11/07/2017 2:42 PM Dictated Date/Time: 11/07/2017 2:41 PM SINGLE VIEW CHEST CLINICAL HISTORY: Dyspnea. FINDINGS: An AP, portable, upright chest radiograph is compared to study performed earlier the same day 11/07/2017. The examination is degraded by portable technique and patient rotation. A 3-lead cardiac pacemaker is unchanged in position. The heart is enlarged and there is atherosclerotic calcification of the thoracic aorta. The pulmonary vasculature is noncongested. There are low lung volumes with chronic elevation of the right hemidiaphragm and bibasilar atelectasis. No airspace consolidation, large pleural effusion, or pneumothorax is seen. The skeletal structures are osteopenic. Advanced arthritic changes are seen in the shoulders. Fusion hardware is partially imaged in the spine. IMPRESSION: 1. Cardiomegaly and cardiac pacemaker. There is no radiographic evidence of congestive failure. 2. There is no airspace consolidation or large pleural effusion. There has been no significant change from today's earlier examination. Electronically signed by: Christ Woodward M.D. 11/07/2017 6:00 PM Dictated Date/Time: 11/07/2017 5:59 PM Laboratory Results 11/07/17 17:28 Red Blood Count 4.22, Mean Corpuscular Volume 102.8, Mean Corpuscular Hemoglobin 33.4, Mean Corpuscular Hemoglobin Concent 32.5, Mean Platelet Volume 10.5, Neutrophils (%) (Auto) 78.7, Lymphocytes (%) (Auto) 13.2, Monocytes (%) ( Auto) 5.9, Eosinophils (%) (Auto) 2.0, Basophils (%) (Auto) 0.2, Neutrophils # ( Auto) 3.86, Lymphocytes # (Auto) 0.65, Monocytes # (Auto) 0.29, Eosinophils # ( Auto) 0.10, Basophils # (Auto) 0.01 11/07/17 17:28 Test 11/07/17 17:28 11/07/17 17:39 White Blood Count 4.91 K/uL (4.8-10.8) Red Blood Count 4.22 M/uL (4.2-5.4) Hemoglobin 14.1 g/dL (12.0-16.0) Hematocrit 43.4 % (37-47) Mean Corpuscular Volume 102.8 fL (80-100) Mean Corpuscular Hemoglobin 33.4 pg (25-34) Mean Corpuscular Hemoglobin Concent 32.5 g/dl (32-36) Platelet Count 229 K/uL (130-400) Mean Platelet Volume 10.5 fL (7.4-10.4) Neutrophils (%) (Auto) 78.7 % Lymphocytes (%) (Auto) 13.2 % Monocytes (%) (Auto) 5.9 % Eosinophils (%) (Auto) 2.0 % Basophils (%) (Auto) 0.2 % Neutrophils # (Auto) 3.86 K/uL (1.4-6.5) Lymphocytes # (Auto) 0.65 K/uL (1.2-3.4) Monocytes # (Auto) 0.29 K/uL (0.11-0.59) Eosinophils # (Auto) 0.10 K/uL (0-0.5) Basophils # (Auto) 0.01 K/uL (0-0.2) RDW Standard Deviation 64.5 fL (36.4-46.3) RDW Coefficient of Variation 17.1 % (11.5-14.5) Immature Granulocyte % (Auto) 0.0 % Immature Granulocyte # (Auto) 0.00 K/uL (0.00-0.02) Prothrombin Time 45.7 SECONDS (9.0-12.0) Prothromb Time International Ratio 4.5 (0.9-1.1) Activated Partial Thromboplast Time 44.2 SECONDS (21.0-31.0) Partial Thromboplastin Ratio 1.7 Anion Gap 4.0 mmol/L (3-11) Est Creatinine Clear Calc Drug Dose 58.7 ml/min Estimated GFR () 81.8 Estimated GFR (Non- 70.5 BUN/Creatinine Ratio 14.9 (10-20) Calcium Level 10.2 mg/dl (8.5-10.1) Total Bilirubin 0.9 mg/dl (0.2-1) Aspartate Amino Transf (AST/SGOT) 25 U/L (15-37) Alanine Aminotransferase (ALT/SGPT) 19 U/L (12-78) Alkaline Phosphatase 165 U/L (45-117) Total Creatine Kinase 43 U/L (26-192) Creatine Kinase MB 2.7 ng/ml (0.5-3.6) Creatine Kinase MB Ratio 6.3 (0-3.0) Troponin I < 0.015 ng/ml (0-0.045) Pro-B-Type Natriuretic Peptide 5953 pg/ml (0-1800) Total Protein 8.7 gm/dl (6.4-8.2) Albumin 3.9 gm/dl (3.4-5.0) Globulin 4.8 gm/dl (2.5-4.0) Albumin/Globulin Ratio 0.8 (0.9-2) Influenza Type A Antigen Neg for Influ A (NEG) Influenza Type B Antigen Neg for Influ B (NEG) Laboratory results reviewed by me Medications Administered Medications (Trade) Dose Ordered Sig/Rain Route Start Time Stop Time Status Last Admin Dose Admin Albuterol/ Ipratropium (Duoneb) 3 ml NOW STAT INH 11/07/17 17:26 11/07/17 17:27 DC 11/07/17 17:38 3 ML Methylprednisolone Sodium Succinate 40 mg/Syringe 0.64 ml @ 1.5 mls/min NOW STAT IV 11/07/17 17:26 11/07/17 17:27 DC 11/07/17 17:59 1.5 MLS/MIN Furosemide (Lasix Inj) 40 mg NOW STAT IV 11/07/17 18:45 11/07/17 18:46 DC 11/07/17 19:34 40 MG ECG Indication: SOB/dyspnea Rate (beats per minute): 72 Rhythm: other (paced rhythm) Findings: no acute ischemic change, no ectopy ED Course 171: The patient was evaluated in room A09B. A complete history and physical exam was performed. 172: Ordered Methylprednisolone Sodium Succinate 40 mg/Syringe 0.64 ml @ 1.5 mls/min IV, Duoneb 3 ml INH. 1844: Ordered Lasix Injection 40 mg IV. 1851: I reevaluated the patient and she is feeling better. I updated her on her results and discussed her treatment plan. We are waiting on the hospitalist. 1919: I discussed the patients case with Dr. Knight [facility] Hospitalist. He understands the patients condition and agrees to accept the patient. The patient will be further evaluated. Medical Decision Triage Nursing notes reviewed. The patient's presentation and history were concerning for SOB and hypoxia. Etiologies such as pneumonia, COPD, reactive airway disease, CHF, cardiac ischemia, pulmonary embolism, pneumothorax, musculoskeletal, infections, gastrointestinal, as well as others were entertained. The patient was evaluated. She was recovering supplemental oxygen. She was given Solu-Medrol and a DuoNeb. Chest imaging did not reveal any evidence of pneumonia. No CHF. She had unremarkable electrolytes and CBC. Her cardiac markers were negative. Influenza testing negative. On reassessment she was feeling somewhat better. She did have moderate lower extremity swelling and was given a dose of IV Lasix. She was still requiring supplemental oxygen. The patient had a consultation placed with internal medicine. She was evaluated in the Emergency Room and admitted for further treatment. Medication Reconcilliation Current Medication List: was personally reviewed by me Blood Pressure Screening Patient's blood pressure: Normal blood pressure Consults Time Called: 1854 Consulting Physician: Dr. Knight [facility] Hospitalist Returned Call: 1919 I discussed the patients case with Dr. Knight [facility] Hospitalist. He understands the patients condition and agrees to accept the patient. The patient will be further evaluated. Impression Primary Impression: Shortness of breath Additional Impression: Hypoxia Scribe Attestation The scribe's documentation has been prepared under my direction and personally reviewed by me in its entirety. I confirm that the note above accurately reflects all work, treatment, procedures, and medical decision making performed by me. Departure Information Dispostion Being Evaluated By Hospitalist Referrals Farheen Mayo M.D. (PCP) Patient Instructions My [facility] Problem Qualifiers
[2017-11-07] MEDS ORDERED: GLUCAGON FOR INJ 1 MG VIAL SQ PRN (20:15)
[2017-11-07] MEDS ORDERED: GLUCOSE 40% GEL 15 GM TUBE PO PRN (20:15)
[2017-11-07] MEDS ORDERED: GLUCOSE 10 TABS/TUBE PO PRN (20:15)
[2017-11-07] MEDS ORDERED: DEXTROSE 50% 50 ML SYR IV PRN (20:15)
[2017-11-07 20:30] VITALS: BP 155/76; PULSE 62; TEMP 36.6; O2SAT 98; Ht 154.9 cm; Wt 80.9 kg
--- NOTE | 2017-11-07 20:30 | NUR ---
A: ARRIVED FROM ED. ORIENTED TO ROOM/CALL [facility]. SIGNED CODE W[employer]ALL AGREEMENT FORMS. VSS. MONITOR ON. DENIES SOB/CP AT REST ON RA. LS CRACKLES. 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 +1-2 BLE EDEMA. VOIDING PALE YELLOW URINE FREQUENTLY IN BSC. SEE EMR FOR COMPLETE ADM ASSESSMENT. CALL [facility] IN REACH. PRIMARY RN TO CONTINUE PT CARE.
[2017-11-07 21:45] VITALS: BP 149/83; PULSE 65
[2017-11-07] MEDS: RANITIDINE HCL 150 MG TAB PO SCH (21:52)
[2017-11-07] MEDS: METOPROLOL SUCC 25MG EXT REL TAB PO SCH (21:52)
[2017-11-07] MEDS: MONTELUKAST SOD 10 MG TAB PO SCH (21:53)
[2017-11-07] MEDS: MAGNESIUM CHLORIDE 64MG DELAYED REL TAB PO SCH (21:53)
[2017-11-07] MEDS: CHOLECALCIFEROL 1000 INTER.UNIT TAB PO SCH (21:54)
[2017-11-07] MEDS: INSULIN ASPART 100 UNITS/ML 3 ML PEN SC SCH (22:00)
[2017-11-07] MEDS: CEROVITE ADV FORMULA TAB PO SCH (22:19)
--- NOTE | 2017-11-07 23:03 | History and Physical ---
History & Physical Date & Time of Service: Nov 07, 2017 at 23:03 Chief Complaint: Acute Hypoxia, Hypoxia Primary Care Physician: Farheen Mayo M.D. History of Present Illness Source: patient, hospital records The patient is a 77-year-old female who presents to the emergency department with complaint of shortness of breath began about 6 days prior to arrival. She has been having some nasal drainage, intermittent precordial chest tightness that occurs with exertion and with her cough, and lower extremity edema she went to [facility] for assessment today, was found to have a pulse ox of 72%, was given 80 mg of Depo-Medrol intramuscularly, and then sent to the emergency department for assessment. EMS reports that her oxygen saturation improved 100% on 3 L. The patient reports a history of sarcoidosis, COPD, and sleep apnea. She does not use an inhaler very often, or CPAP. She takes warfarin for atrial fibrillation, and reports getting laboratories done on a regular basis.. Past Medical/Surgical History Medical Problems: (1) AMI (acute myocardial infarction) Permanent Comment: STEMI 08/2013 Status: Chronic (2) Anticoagulated on Coumadin Status: Chronic (3) Atrial fibrillation Status: Chronic (4) Benign hypertension Status: Chronic (5) CAD (coronary artery disease) Status: Chronic (6) Cellulitis of leg, right Status: Resolved (7) GERD (gastroesophageal reflux disease) Status: Chronic (8) Hyperlipidemia Status: Chronic (9) Lumbar disc disease Status: Chronic (10) MRSA Status: Resolved (11) ELISEO (obstructive sleep apnea) Status: Chronic (12) Right-sided epistaxis Status: Resolved (13) rotator cuff surgery Status: Resolved (14) Sarcoidosis Status: Chronic (15) Spinal stenosis Status: Chronic (16) Spinal stenosis Status: Chronic (17) Supratherapeutic INR Status: Resolved Surgical Problems: (1) Percutaneous transluminal coronary angioplasty status Status: Chronic (2) Total knee replacement status Permanent Comment: Complicated by MRSA and septic joint Status: Resolved Social History Problems: (1) Laceration of lower extremity Status: Resolved Family History Cancer Diabetes mellitus FHx: heart disease FHx: hypertension Lung disease Social History Smoking Status: Never Smoker Smokeless Tobacco Use: No Alcohol Use: none Drug Use: none Marital Status: Occupational Status: retired Immunizations History of Influenza Vaccine: Yes Influenza Vaccine Date: Aug 19, 2013 History of Tetanus Vaccine?: Yes Tetanus Immunization Date: Jan 17, 2013 History of Pneumococcal: Yes Pneumococcal Date: Jun 10, 2009 History of Hepatitis B Vaccine: No Multi-Drug Resistant Organisms History of MDRO: No Allergies Coded Allergies: Adhesives (Verified Allergy, Unknown, RASH, 11/07/17) Morphine (Verified Adverse Reaction, Unknown, SENSITIVITY, 11/07/17) Home Medications Scheduled Aspirin (Aspirin Low Dose), 81 MG PO 3XWK Cephalexin Monohydrate (Keflex), 500 MG PO QAM Cholecalciferol (Vitamin D 1000 Unit), 1,000 INTER.UNIT PO QPM Cyanocobalamin (Vitamin B12), 1,000 MCG PO QPM Ferrous Sulfate (Ferrous Sulfate), 325 MG PO QAM Folic Acid (Folvite), 1 MG PO QAM Furosemide (Furosemide), 20 MG PO 3XWK Magnesium Chloride (Slow-Mag Tab), 64 MG PO BID Metformin HCl (Metformin HCl), 500 MG PO BID Metoprolol Succinate (Metoprolol Succinate ER), 37.5 MG PO BID Montelukast Sod (Montelukast Sodium), 10 MG PO HS Multiple Vitamin (Multi Vitamin Daily), 1 TAB PO QAM Ocuvite Preservision (Ocuvite Preservision), 1 TAB PO BID Probiotic Product (Probiotic), 2 CAP PO QPM Ranitidine HCl (Ranitidine HCl), 150 MG PO QPM Tiotropium Tibbie (Spiriva Handihaler), 1 CAP INH PRN Vitamin E (Vitamin E 400 Iu), 1 TAB PO QPM Warfarin Sodium (Warfarin Sodium), 4 MG PO 5XWK Warfarin Sodium (Warfarin Sodium), 2 MG PO 2XWK Scheduled PRN Fluticasone Propionate (Fluticasone Propionate), 2 SPRAYS [place] DAILY PRN for Allergy Symptoms Ipratropium-Albuterol (Combivent Respimat), 1 PUFF INH UD PRN for Shortness of Breath Nitroglycerin (Nitrostat), 0.4 MG UT UD PRN for Chest Pain Oxycodone/Acetaminophen 5MG/325MG (Percocet 5MG/325MG), 1-2 TABS PO Q4H PRN for Pain Review of Systems The patient denies chest pain, palpitations, sore throat, fevers, chills, sweats , weight change, nausea, vomiting, diarrhea or constipation, abdominal pain, pelvic pain, blood in urine or stool, dysuria, urinary frequency or urgency, headache, memory loss, loss of consciousness, rash, abnormal bruising or bleeding, imbalance, focal weakness, numbness or tingling in arms or legs, generalized arthralgias or myalgias, back or neck pain, or night sweats. The review of systems is otherwise negative other than for that already noted above, and at least 10 systems have been reviewed. Physical Exam Vital Signs Date Time Temp Pulse Resp B/P (MAP) Pulse Ox O2 Delivery O2 Flow Rate FiO2 11/07/17 21:45 65 149/83 (105) 11/07/17 20:30 36.6 62 24 155/76 98 Room Air 11/07/17 20:04 65 20 153/82 97 Nasal Cannula 2.0 11/07/17 18:45 94 Room Air 11/07/17 18:35 61 24 100 Nasal Cannula 3.0 11/07/17 18:05 61 20 99 Nasal Cannula 3.0 11/07/17 18:01 125/62 11/07/17 17:54 60 11/07/17 17:34 121/73 11/07/17 17:31 60 22 121/73 97 Nasal Cannula 3.0 11/07/17 17:06 97 Nasal Cannula 3.0 11/07/17 17:05 36.8 70 25 157/112 98 Room Air 11/07/17 17:05 80 Room Air 11/07/17 17:05 80 Room Air The patient is awake, well-developed and adequately nourished, alert and oriented 3, normocephalic and atraumatic, lying in bed and in no acute distress. HEENT--PERRL, EOMI, mucous membranes and oropharynx dry. Neck--supple, no JVD or bruits, thyroid normal, trachea midline, no adenopathy. Heart--normal S1 and S2, no extra beats, no murmurs, rubs or gallops. Lungs--decreased breath sounds throughout, no respiratory distress, no accessory muscle use. Abdomen--normal bowel sounds and soft, nontender and nondistended, no hernias or masses. Extremities--no cyanosis, clubbing. There is 1+ bilateral pretibial and pedal pitting edema. There are good distal pulses b/l. Dermatologic--normal skin turgor, normal color, warm and dry, no abnormal lymph nodes, no rash. Neurologic--cranial nerves II through XII grossly intact. Rheumatologic--normal range of motion. Psychiatric--normal affect. Diagnostics Laboratory Results Results Past 24 Hours Test 11/07/17 17:28 11/07/17 17:39 11/07/17 21:11 11/07/17 22:16 Range/Units White Blood Count 4.91 4.8-10.8 K/uL Red Blood Count 4.22 4.2-5.4 M/uL Hemoglobin 14.1 12.0-16.0 g/dL Hematocrit 43.4 37-47 % Mean Corpuscular Volume 102.8 80-100 fL Mean Corpuscular Hemoglobin 33.4 25-34 pg Mean Corpuscular Hemoglobin Concent 32.5 32-36 g/dl Platelet Count 229 130-400 K/uL Mean Platelet Volume 10.5 7.4-10.4 fL Neutrophils (%) (Auto) 78.7 % Lymphocytes (%) (Auto) 13.2 % Monocytes (%) (Auto) 5.9 % Eosinophils (%) (Auto) 2.0 % Basophils (%) (Auto) 0.2 % Neutrophils # (Auto) 3.86 1.4-6.5 K/uL Lymphocytes # (Auto) 0.65 1.2-3.4 K/uL Monocytes # (Auto) 0.29 0.11-0.59 K/uL Eosinophils # (Auto) 0.10 0-0.5 K/uL Basophils # (Auto) 0.01 0-0.2 K/uL RDW Standard Deviation 64.5 36.4-46.3 fL RDW Coefficient of Variation 17.1 11.5-14.5 % Immature Granulocyte % (Auto) 0.0 % Immature Granulocyte # (Auto) 0.00 0.00-0.02 K/uL Prothrombin Time 45.7 9.0-12.0 SECONDS Prothromb Time International Ratio 4.5 0.9-1.1 Activated Partial Thromboplast Time 44.2 21.0-31.0 SECONDS Partial Thromboplastin Ratio 1.7 Sodium Level 135 136-145 mmol/L Potassium Level 3.8 3.5-5.1 mmol/L Chloride Level 103 98-107 mmol/L Carbon Dioxide Level 28 21-32 mmol/L Anion Gap 4.0 3-11 mmol/L Blood Urea Nitrogen 12 7-18 mg/dl Creatinine 0.81 0.60-1.20 mg/dl Est Creatinine Clear Calc Drug Dose 58.7 ml/min Estimated GFR () 81.8 Estimated GFR (Non- 70.5 BUN/Creatinine Ratio 14.9 10-20 Random Glucose 118 70-99 mg/dl Calcium Level 10.2 8.5-10.1 mg/dl Total Bilirubin 0.9 0.2-1 mg/dl Aspartate Amino Transf (AST/SGOT) 25 15-37 U/L Alanine Aminotransferase (ALT/SGPT) 19 12-78 U/L Alkaline Phosphatase 165 45-117 U/L Total Creatine Kinase 43 26-192 U/L Creatine Kinase MB 2.7 0.5-3.6 ng/ml Creatine Kinase MB Ratio 6.3 0-3.0 Troponin I < 0.015 0-0.045 ng/ml Pro-B-Type Natriuretic Peptide 5953 0-1800 pg/ml Total Protein 8.7 6.4-8.2 gm/dl Albumin 3.9 3.4-5.0 gm/dl Globulin 4.8 2.5-4.0 gm/dl Albumin/Globulin Ratio 0.8 0.9-2 Influenza Type A Antigen Neg for Influ A NEG Influenza Type B Antigen Neg for Influ B NEG Bedside Glucose 133 70-90 mg/dl Urine Color YELLOW Urine Appearance CLEAR CLEAR Urine pH 5.0 4.5-7.5 Urine Specific [place] 1.013 1.000-1.030 Urine Protein NEG NEG Urine Glucose (UA) NEG NEG Urine Ketones NEG NEG Urine Occult Blood NEG NEG Urine Nitrite NEG NEG Urine Bilirubin NEG NEG Urine Urobilinogen NEG NEG Urine Leukocyte Esterase NEG NEG Microbiology Results 11/07/17 Blood Culture, Received Pending 11/07/17 Blood Culture, Received Pending 11/07/17 Urine Culture, Received Pending Diagnostic Radiology Patient Name: ERNESTINE BRAR Unit Number: [id number] Dictated: 11/07/[id number] Transcribed: 11/07/171758 EV Printed Date/Time: [~ rep prt dt]/[~ rep prt tm] [~ rep ct labl] - [~ rep ct ivnm] [facility] [place] [address] Dictated: 11/07/[id number] Transcribed: 11/07/171758 EV Printed Date/Time: [~ rep prt dt]/[~ rep prt tm] [~ rep ct labl] - [~ rep ct ivnm] [~ rep ct add3]] SINGLE VIEW CHEST CLINICAL HISTORY: Dyspnea. FINDINGS: An AP, portable, upright chest radiograph is compared to study performed earlier the same day 11/07/2017. The examination is degraded by portable technique and patient rotation. A 3-lead cardiac pacemaker is unchanged in position. The heart is enlarged and there is atherosclerotic calcification of the thoracic aorta. The pulmonary vasculature is noncongested. There are low lung volumes with chronic elevation of the right hemidiaphragm and bibasilar atelectasis. No airspace consolidation, large pleural effusion, or pneumothorax is seen. The skeletal structures are osteopenic. Advanced arthritic changes are seen in the shoulders. Fusion hardware is partially imaged in the spine. IMPRESSION: 1. Cardiomegaly and cardiac pacemaker. There is no radiographic evidence of congestive failure. 2. There is no airspace consolidation or large pleural effusion. There has been no significant change from today's earlier examination. Electronically signed by: Christ Woodward M.D. 11/07/2017 6:00 PM Dictated Date/Time: 11/07/2017 5:59 PM The status of this report is Signed. Draft = Not yet reviewed or approved by Radiologist. Signed = Reviewed and approved by Radiologist. <AttendingPhy></AttendingPhy> <FamilyPhy>Farheen Mayo M.D.</FamilyPhy > <PrimaryPhy>Farheen Mayo M.D.</PrimaryPhy> <UnitNumber>[id number]</ UnitNumber> <VisitNumber>[id number]</VisitNumber> <PatientName>ERNESTINE BRAR Magdalena</ PatientName> <DateOfBirth>1940</DateOfBirth> <Location>[facility]</Location> < ServiceDate>11/07/17</ServiceDate> <MNE>ESINDI</MNE> <OrderingPhy>Maciejczyk, Dagoberto F MD</OrderingPhy> <OrderingPhyMNE>f rep ord dr trejo</OrderingPhyMNE> < DictatingPhyMNE>f rep dict dr trejo</DictatingPhyMNE> <CCListMNE>f rep ct maya</ CCListMNE> <AdmittingPhyMNE>f pt admit dr trejo</AdmittingPhyMNE> <AttendingPhyMNE >f pt attend dr trejo</AttendingPhyMNE> <ConsultingPhyMNE>f pt consult dr trejo</ConsultingPhyMNE> <FamilyPhyMNE>f pt fam dr trejo</FamilyPhyMNE> <OtherPhyMNE>f pt other dr trejo</OtherPhyMNE> < PrimaryPhyMNE>f pt prim care dr trejo</PrimaryPhyMNE> <ReferringPhyMNE>f pt referring dr trejo</ReferringPhyMNE> EKG EKG shows ventricular paced rhythm at 72 bpm, no acute ST-T changes, and no change compared to 09/28/2017 Impression Assessment and Plan Acute respiratory failure with hypoxia/combination of acute CHF and COPD exacerbations-- The patient will be admitted to telemetry for serial cardiac enzymes, cardiac rhythm monitoring and a 2-D echocardiogram with Dopplers. Acute CHF/atrial fibrillation/history of OH/CAD/supratherapeutic INR-- Given Lasix 40 mg IV in the ED, and will continue every morning. Hold warfarin for INR of 4.5, and repeat every morning, resuming when INR is less than or equal to 2.5 Continue aspirin Continue metoprolol succinate ER 37.5 mg by mouth twice a day Continue Slow-Mag 64 mg by mouth twice a day COPD exacerbation-- Given Depo-Medrol 80 mg IM at her PCPs office, and 40 mg IV Solu-Medrol in the ED. Patient Solu-Medrol 40 mg IV every 12 hours Xopenex/Atrovent nebulizer to use every 6 hours while awake and every 2 hours when necessary Continue Singulair 10 mg by mouth at bedtime Hold Spiriva Diabetes mellitus--hold metformin 500 mg by mouth twice a day Place on Accu-Cheks before meals and at bedtime with NovoLog coverage per scale. Vitamin B12 deficiency-- Continue supplement 1000 g by mouth every evening GERD-- Continue ranitidine 150 mg by mouth every evening Level of Care Telemetry Advanced Directives Existing Living Will: Yes Existing Power of Psychological Anthropologist: Yes Resuscitation Status FULL RESUSCITATION VTE Prophylaxis VTE Risk Assessment Done? Y/N: Yes Risk Level: Moderate Given or contraindicated: Warfarin (Coumadin) Social Service Consult None Apply
[2017-11-08] VITALS (9 sets, daily range): BP systolic 106–135; BP diastolic 67–84; PULSE 59–69; TEMP 36.2–37; O2SAT 90–99
--- NOTE | 2017-11-08 | NUR ---
A: NO CHANGE IN ASSESSMENT.
[2017-11-08 03:53] LABS: HEMATOCRIT 38.1 % (37-47); HEMOGLOBIN 12.5 g/dL (12.0-16.0); LYMPH % 12.8 %; LYMPH ABS # 0.47 K/uL (1.2-3.4); MEAN CELL VOLUME 101.3 fL (80-100); MEAN CORPUSCULAR HEMOGLOBIN 33.2 pg (25-34); MEAN CORPUSCULAR HGB CONC 32.8 g/dl (32-36); MEAN PLATELET VOLUME 10.3 fL (7.4-10.4); MONO ABS # 0.11 K/uL (0.11-0.59); NEUT % 84.2 %; NEUT ABS # 3.09 K/uL (1.4-6.5); PLATELET COUNT 186 K/uL (130-400); RED CELL DISTRIBUTION WIDTH CV 16.9 % (11.5-14.5); RED CELL DISTRIBUTION WIDTH SD 62.3 fL (36.4-46.3); WHITE BLOOD COUNT 3.67 K/uL (4.8-10.8)
--- NOTE | 2017-11-08 04:00 | NUR ---
A: NO CHANGE IN ASSESSMENT.
[2017-11-08 04:10] LABS: PTT PATIENT 44.9 SECONDS (21.0-31.0)
[2017-11-08 04:12] LABS: INR 4.4 (0.9-1.1)
[2017-11-08 04:18] LABS: BLOOD UREA NITROGEN 16 mg/dl (7-18); CALCIUM 9.6 mg/dl (8.5-10.1); CARBON DIOXIDE 30 mmol/L (21-32); CREATININE 0.87 mg/dl (0.60-1.20); GLUCOSE 201 mg/dl (70-99); POTASSIUM 3.6 mmol/L (3.5-5.1); SODIUM 136 mmol/L (136-145)
[2017-11-08 04:23] LABS: CKMB 1.8 ng/ml (0.5-3.6)
[2017-11-08] MEDS ORDERED: NURSING VERBAL MED ORDER ONE (05:30)
[2017-11-08] MEDS ORDERED: MAG SULFATE 50% INJ 1 GM in DEXTROSE 5% 100ML IV STA (05:33)
[2017-11-08] MEDS ORDERED: MAGNESIUM SULFATE 1GM / D5W 1 GM in PREMIXED IN D5W 100 ML IV STA (05:34)
[2017-11-08] MEDS ORDERED: METHYLPREDNISOLONE IV 40 MG in SYRINGE 0 ML IV SCH (06:00)
--- NOTE | 2017-11-08 08:00 | NUR ---
A: Patient admitted with acute hypoxia. A&OX4. Denies pain, SOB, N/V. SL right AC. Skin intact. +1 BLE edema, positive pulses. Paced on the monitor. Lungs are diminished throughout. Pt wears 2L nasal canula as needed. Abdomen is soft, nontender, nondistended. Positive bowel sounds. BSG 194. Minimal assist to independent OOB to BSC. Hourly rounding. Encouraged to ring for assistance. Will continue to monitor.
[2017-11-08] MEDS: CYANOCOBALAMIN 500 MCG TAB (VIT B-12) PO SCH (08:05)
[2017-11-08] MEDS: METOPROLOL SUCC 25MG EXT REL TAB PO SCH ×2 (08:05→20:47)
[2017-11-08] MEDS: MAGNESIUM CHLORIDE 64MG DELAYED REL TAB PO SCH ×2 (08:05→20:45)
[2017-11-08] MEDS: FERROUS SULFATE 325 MG TAB PO SCH (08:05)
[2017-11-08] MEDS: FUROSEMIDE INJ 40 MG in SYRINGE 0 ML IV SCH (08:06)
[2017-11-08] MEDS: INSULIN ASPART 100 UNITS/ML 3 ML PEN SC SCH ×4 (08:11→20:48)
[2017-11-08] MEDS: MULTIVITAMIN TAB PO SCH (09:29)
[2017-11-08] MEDS ORDERED: ACETAMINOPHEN 500 MG TAB PO STA (10:25)
--- NOTE | 2017-11-08 12:00 | NUR ---
A: Patient is resting comfortably. A&OX4. Denies pain, SOB, N/V. Assessment complete, unchanged, see EMR. Paced on the monitor. Hourly rounding. Encouraged to ring for assistance. Will continue to monitor.
[2017-11-08 13:07] LABS: CKMB 1.6 ng/ml (0.5-3.6)
[2017-11-08] MEDS ORDERED: ALBUT/IPRATROP 3MG/0.5MG NEB 3 ML VIAL INH PRN (13:45)
--- NOTE | 2017-11-08 13:45 | Hospitalist Progress Note ---
Hospitalist Progress Note Date of Service Nov 08, 2017. Subjective Pt evaluation today including: conversation w/ patient, physical exam, chart review, lab review, review of studies, review of inpatient medication list Patient seen and evaluated. Admitted overnight and responded rapidly to treatment. Tele removed and paced in 60s. Appears this is more related to fluid overload than COPD exacerbation. She has great airflow without wheeze but crackles at bases b/l. Mild JVD. Patient is independently ambulating in room, no supplemental O2, and no MADDOX/ respiratory distress. Currently -1500 cc for diuresis. Not at baseline weight and reports weighing herself daily. Only takes Lasix 3x weekly. Constitutional: No fever, No chills Respiratory: + cough, No sputum, No dyspnea on exertion, No dyspnea at rest Cardiovascular: No chest pain, No palpitations Abdomen: No pain, No nausea, No vomiting, No diarrhea, No constipation Female : No dysuria Heme: No abnormal bleeding/bruising Medications Current Inpatient Medications Medications (Trade) Dose Ordered Sig/Rain Route Start Time Stop Time Status Last Admin Dose Admin Acetaminophen (Tylenol Tab) 650 mg Q4H PRN PO 11/07/17 20:00 12/07/17 19:59 Magnesium Hydroxide (Milk Of Magnesia Susp) 30 ml Q12H PRN PO 11/07/17 20:00 12/07/17 19:59 Cholecalciferol (Vitamin D Tab) 1,000 inter.unit QPM PO 11/07/17 21:00 12/07/17 20:59 11/07/17 21:54 1,000 INTER.UNIT Fluticasone Propionate (Flonase Nasal [place]) 2 sprays DAILY PRN [place] 11/07/17 20:00 12/07/17 19:59 Folic Acid (Folvite Tab) 1 mg QAM PO 11/08/17 09:00 12/08/17 08:59 11/08/17 08:05 1 MG Magnesium Chloride (Slow-Mag Tab) 64 mg BID PO 11/07/17 21:00 12/07/17 20:59 11/08/17 08:05 64 MG Metoprolol Succinate (Toprol Xl Tab) 37.5 mg BID PO 11/07/17 21:00 12/07/17 20:59 11/08/17 08:05 37.5 MG Montelukast Sodium (Singulair Tab) 10 mg HS PO 11/07/17 21:00 12/07/17 20:59 11/07/17 21:53 10 MG Multivitamins (Multivitamin Tab) 1 tab QAM PO 11/08/17 09:00 12/08/17 08:59 11/08/17 09:29 1 TAB Nitroglycerin (Nitrostat Tab) 0.4 mg UD PRN UT 11/07/17 20:00 12/07/17 19:59 Multivitamins/ Minerals (Multivitamin W/ Minerals Tab) 1 tab QPM PO 11/07/17 21:00 12/07/17 20:59 11/07/17 22:19 1 TAB Ranitidine HCl (zANTac TAB) 150 mg QPM PO 11/07/17 21:00 12/07/17 20:59 11/07/17 21:52 150 MG Cyanocobalamin (Vitamin B-12 Tab) 1,000 mcg QAM PO 11/08/17 09:00 12/08/17 08:59 11/08/17 08:05 1,000 MCG Ferrous Sulfate (Feosol Tab) 325 mg QAM PO 11/08/17 09:00 12/08/17 08:59 11/08/17 08:05 325 MG Ondansetron HCl (Zofran Odt) 8 mg Q6H PRN PO 11/07/17 20:00 12/07/17 19:59 Furosemide 40 mg/ Syringe 4 ml @ 4 mls/min DAILY@0900 IV 11/08/17 09:00 12/08/17 08:59 11/08/17 08:06 4 MLS/MIN Insulin Aspart (novoLOG ASPART) SLIDING SCALE If C... ACHS SC 11/07/17 21:00 12/07/17 20:59 11/08/17 12:16 7 UNITS Glucose (Glucose 40% Gel) UD PRN PO 11/07/17 20:15 12/07/17 20:14 Glucose (Glucose Chew Tab) 1 tabs UD PRN PO 11/07/17 20:15 12/07/17 20:14 Dextrose (Dextrose 50% 50ML Syringe) 50 ml UD PRN IV 11/07/17 20:15 12/07/17 20:14 Glucagon (Glucagon Inj) 1 mg UD PRN SQ 11/07/17 20:15 12/07/17 20:14 Prednisone (PredniSONE TAB) 40 mg DAILY PO 11/09/17 09:00 12/09/17 08:59 Objective Vital Signs Date Time Temp Pulse Resp B/P (MAP) Pulse Ox O2 Delivery O2 Flow Rate FiO2 11/08/17 12:00 Nasal Cannula 2.0 11/08/17 11:30 37.0 63 18 125/68 (87) 95 11/08/17 08:07 36.8 59 16 122/70 (87) 97 Room Air 11/08/17 08:00 Nasal Cannula 2.0 11/08/17 04:00 Nasal Cannula 2.0 11/08/17 03:45 36.4 61 16 133/78 (96) 92 Room Air 11/08/17 00:23 36.5 61 18 135/79 (97) 91 Room Air 11/08/17 00:00 Nasal Cannula 2.0 11/07/17 21:45 65 149/83 (105) 11/07/17 20:30 36.6 62 24 155/76 98 Room Air 11/07/17 20:04 65 20 153/82 97 Nasal Cannula 2.0 11/07/17 18:45 94 Room Air 11/07/17 18:35 61 24 100 Nasal Cannula 3.0 11/07/17 18:05 61 20 99 Nasal Cannula 3.0 11/07/17 18:01 125/62 11/07/17 17:54 60 11/07/17 17:34 121/73 11/07/17 17:31 60 22 121/73 97 Nasal Cannula 3.0 11/07/17 17:06 97 Nasal Cannula 3.0 11/07/17 17:05 36.8 70 25 157/112 98 Room Air 11/07/17 17:05 80 Room Air 11/07/17 17:05 80 Room Air Physical Exam General Appearance: WD/WN Eyes: sclerae normal Neck: supple, trachea midline, + JVD (mild) Respiratory/Chest: no respiratory distress, no accessory muscle use, + crackles (bases b/l) Cardiovascular: regular rate, rhythm Abdomen: normal bowel sounds, non tender, soft Extremities: + swelling (1+ b/l pitting edema) Neurologic/Psychiatric: alert, oriented x 3 Skin: normal color, warm/dry Laboratory Results Last 24 Hours Test 11/07/17 17:28 11/07/17 17:39 11/07/17 21:11 11/07/17 22:16 White Blood Count 4.91 K/uL Red Blood Count 4.22 M/uL Hemoglobin 14.1 g/dL Hematocrit 43.4 % Mean Corpuscular Volume 102.8 fL Mean Corpuscular Hemoglobin 33.4 pg Mean Corpuscular Hemoglobin Concent 32.5 g/dl Platelet Count 229 K/uL Mean Platelet Volume 10.5 fL Neutrophils (%) (Auto) 78.7 % Lymphocytes (%) (Auto) 13.2 % Monocytes (%) (Auto) 5.9 % Eosinophils (%) (Auto) 2.0 % Basophils (%) (Auto) 0.2 % Neutrophils # (Auto) 3.86 K/uL Lymphocytes # (Auto) 0.65 K/uL Monocytes # (Auto) 0.29 K/uL Eosinophils # (Auto) 0.10 K/uL Basophils # (Auto) 0.01 K/uL RDW Standard Deviation 64.5 fL RDW Coefficient of Variation 17.1 % Immature Granulocyte % (Auto) 0.0 % Immature Granulocyte # (Auto) 0.00 K/uL Prothrombin Time 45.7 SECONDS Prothromb Time International Ratio 4.5 Activated Partial Thromboplast Time 44.2 SECONDS Partial Thromboplastin Ratio 1.7 Sodium Level 135 mmol/L Potassium Level 3.8 mmol/L Chloride Level 103 mmol/L Carbon Dioxide Level 28 mmol/L Anion Gap 4.0 mmol/L Blood Urea Nitrogen 12 mg/dl Creatinine 0.81 mg/dl Est Creatinine Clear Calc Drug Dose 58.7 ml/min Estimated GFR () 81.8 Estimated GFR (Non- 70.5 BUN/Creatinine Ratio 14.9 Random Glucose 118 mg/dl Calcium Level 10.2 mg/dl Total Bilirubin 0.9 mg/dl Aspartate Amino Transf (AST/SGOT) 25 U/L Alanine Aminotransferase (ALT/SGPT) 19 U/L Alkaline Phosphatase 165 U/L Total Creatine Kinase 43 U/L Creatine Kinase MB 2.7 ng/ml Creatine Kinase MB Ratio 6.3 Troponin I < 0.015 ng/ml Pro-B-Type Natriuretic Peptide 5953 pg/ml Total Protein 8.7 gm/dl Albumin 3.9 gm/dl Globulin 4.8 gm/dl Albumin/Globulin Ratio 0.8 Influenza Type A Antigen Neg for Influ A Influenza Type B Antigen Neg for Influ B Bedside Glucose 133 mg/dl Urine Color YELLOW Urine Appearance CLEAR Urine pH 5.0 Urine Specific [place] 1.013 Urine Protein NEG Urine Glucose (UA) NEG Urine Ketones NEG Urine Occult Blood NEG Urine Nitrite NEG Urine Bilirubin NEG Urine Urobilinogen NEG Urine Leukocyte Esterase NEG Test 11/08/17 03:29 11/08/17 07:51 11/08/17 11:45 11/08/17 12:15 White Blood Count 3.67 K/uL Red Blood Count 3.76 M/uL Hemoglobin 12.5 g/dL Hematocrit 38.1 % Mean Corpuscular Volume 101.3 fL Mean Corpuscular Hemoglobin 33.2 pg Mean Corpuscular Hemoglobin Concent 32.8 g/dl Platelet Count 186 K/uL Mean Platelet Volume 10.3 fL Neutrophils (%) (Auto) 84.2 % Lymphocytes (%) (Auto) 12.8 % Monocytes (%) (Auto) 3.0 % Eosinophils (%) (Auto) 0.0 % Basophils (%) (Auto) 0.0 % Neutrophils # (Auto) 3.09 K/uL Lymphocytes # (Auto) 0.47 K/uL Monocytes # (Auto) 0.11 K/uL Eosinophils # (Auto) 0.00 K/uL Basophils # (Auto) 0.00 K/uL RDW Standard Deviation 62.3 fL RDW Coefficient of Variation 16.9 % Immature Granulocyte % (Auto) 0.0 % Immature Granulocyte # (Auto) 0.00 K/uL Prothrombin Time 45.2 SECONDS Prothromb Time International Ratio 4.4 Activated Partial Thromboplast Time 44.9 SECONDS Partial Thromboplastin Ratio 1.7 Sodium Level 136 mmol/L Potassium Level 3.6 mmol/L Chloride Level 102 mmol/L Carbon Dioxide Level 30 mmol/L Anion Gap 4.0 mmol/L Blood Urea Nitrogen 16 mg/dl Creatinine 0.87 mg/dl Est Creatinine Clear Calc Drug Dose 53.8 ml/min Estimated GFR () 75.0 Estimated GFR (Non- 64.7 BUN/Creatinine Ratio 18.7 Random Glucose 201 mg/dl Calcium Level 9.6 mg/dl Magnesium Level 1.5 mg/dl Total Creatine Kinase 29 U/L 32 U/L Creatine Kinase MB 1.8 ng/ml 1.6 ng/ml Creatine Kinase MB Ratio 6.2 5.0 Troponin I < 0.015 ng/ml < 0.015 ng/ml Bedside Glucose 194 mg/dl 172 mg/dl Assessment and Plan Acute respiratory failure with hypoxia/combination of acute CHF and COPD exacerbations-- The patient will be admitted to telemetry for serial cardiac enzymes, cardiac rhythm monitoring and a 2-D echocardiogram with Dopplers. Acute Respiratory Failure with Hypoxia 2/2 Acute Diastolic CHF: - Not requiring supplemental O2 at this time and ambulating without issue - currently -1500 cc diuresed - Continue Lasix 40 mg IV daily - anticipate need for daily oral Lasix on D/C Paroxysmal Atrial Fibrillation - CAD/CT - Supratherapeutic INR: - Continue to hold warfarin - INR down to 4.4 and continue to trend - no signs of acute bleeding - Toprol XL 37.5 mg BID Possible Mild COPD Exacerbation on Admission: - Does not appear to be in an exacerbation at this time. Airflow if good diffusely and no wheezing - Will de-escalate steroids to Prednisone 40 mg x 5 days then stop - Sinulair 10 mg daily and Duonebs PRN T2DM: - Metformin currently on hold and coverage is by SSI - can resume Metformin on D /C DVT Prophylaxis: Supratherapeutic INR Code Status: FULL RESUSCITATION Disposition: - Continue diuresis - possible D/C tomorrow Continued [facility] stay due to: multiple IV medications needed Discharge planning: home
--- NOTE | 2017-11-08 15:11 | NUR ---
Discharge planning consult received. I spoke with the patient at bedside and we discussed the role of case management, she is alert and oriented x 4. [place], her sons live on the property in their own homes. She currently uses a walker outside the house. She has no home health services, does have a cleaning person. Patient is independent with adl's and drives. 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 No discharge needs identified at this time, patient does not have home oxygen. Case management to follow.
--- NOTE | 2017-11-08 16:00 | NUR ---
A: Patient alert and oriented, resting in bed. Patient c/o cough productive of thick sputum, unable to assess sputum as patient states she swallows it/unable to spit it out. Lungs are diminished with fine crackles in the bilateral bases. O2 PRN, currently 90% on RA. Call tolentino within reach, will continue to monitor.
--- NOTE | 2017-11-08 20:00 | NUR ---
A: Assessment unchanged. Patient c/o headache, medicated with tylenol. Paced on the monitor. Patient reports improvement of BLE edema; diuresing well. Will continue to monitor.
[2017-11-08] MEDS: ACETAMINOPHEN 325 MG TAB PO PRN (20:44)
[2017-11-08] MEDS: MONTELUKAST SOD 10 MG TAB PO SCH (20:45)
[2017-11-08] MEDS: CEROVITE ADV FORMULA TAB PO SCH (20:45)
[2017-11-08] MEDS: CHOLECALCIFEROL 1000 INTER.UNIT TAB PO SCH (20:47)
[2017-11-08] MEDS: RANITIDINE HCL 150 MG TAB PO SCH (20:48)
[2017-11-09] VITALS (8 sets, daily range): BP systolic 107–148; BP diastolic 61–86; PULSE 60–66; TEMP 36.3–37; O2SAT 92–100
--- NOTE | 2017-11-09 | NUR ---
A: Patient resting in bed. A&O x4. VSS on 1L NC, per patient request. Paced on monitor. Patient states she may go home tomorrow. Voiding in toilet. +1 edema to lower extremities. See EMR for full assessment. Call tolentino within reach. Will continue to monitor.
--- NOTE | 2017-11-09 04:00 | NUR ---
A: Patient resting in bed with no complaints. VSS, Paced on monitor. Assessment unchanged from previous. Call tolentino within reach. Will continue to monitor.
[2017-11-09 07:20] LABS: BASO % 0.1 %; BASO ABS # 0.01 K/uL (0-0.2); EOS % 0.4 %; EOS ABS # 0.03 K/uL (0-0.5); HEMATOCRIT 38.5 % (37-47); HEMOGLOBIN 12.6 g/dL (12.0-16.0); IG# 0.01 K/uL (0.00-0.02); LYMPH % 12.6 %; LYMPH ABS # 0.93 K/uL (1.2-3.4); MEAN CELL VOLUME 101.9 fL (80-100); MEAN CORPUSCULAR HEMOGLOBIN 33.3 pg (25-34); MEAN CORPUSCULAR HGB CONC 32.7 g/dl (32-36); MEAN PLATELET VOLUME 10.3 fL (7.4-10.4); MONO % 12.2 %; NEUT % 74.6 %; NEUT ABS # 5.52 K/uL (1.4-6.5); PLATELET COUNT 205 K/uL (130-400); RED CELL DISTRIBUTION WIDTH CV 17.1 % (11.5-14.5); RED CELL DISTRIBUTION WIDTH SD 63.2 fL (36.4-46.3)
[2017-11-09 07:40] LABS: INR 2.3 (0.9-1.1); PTT PATIENT 35.5 SECONDS (21.0-31.0)
[2017-11-09 07:51] LABS: CALCIUM 9.9 mg/dl (8.5-10.1); CREATININE 0.97 mg/dl (0.60-1.20); POTASSIUM 3.5 mmol/L (3.5-5.1)
--- NOTE | 2017-11-09 08:00 | NUR ---
ID: PT A&OX4. FALL PRECAUTION. C/O OF NECK/SHOULDER PAIN;MEDICATED NEEDED. Hanna Peters. PT OOB WITH SUPERVISION. POSSIBLE D/C HOME TODAY. WILL CONTINUE TO MONITOR.
[2017-11-09] MEDS: FERROUS SULFATE 325 MG TAB PO SCH (08:09)
[2017-11-09] MEDS: MULTIVITAMIN TAB PO SCH (08:09)
[2017-11-09] MEDS: FUROSEMIDE INJ 40 MG in SYRINGE 0 ML IV SCH (08:09)
[2017-11-09] MEDS: METOPROLOL SUCC 25MG EXT REL TAB PO SCH ×2 (08:09→20:54)
[2017-11-09] MEDS: MAGNESIUM CHLORIDE 64MG DELAYED REL TAB PO SCH ×2 (08:09→20:51)
[2017-11-09] MEDS: CYANOCOBALAMIN 500 MCG TAB (VIT B-12) PO SCH (08:10)
[2017-11-09] MEDS: INSULIN ASPART 100 UNITS/ML 3 ML PEN SC SCH ×4 (08:13→20:59)
--- NOTE | 2017-11-09 10:18 | NUR ---
I have been asked to arrange a PCP follow up for Ms. Hendrix. The appointment information is below as it has been documented in the discharge. ALBA "Important Appointment Information Ms. Hendrix, The following appointment has been arranged for you, Please follow up with Dr. Mayo on Tuesday, November 14, 2017 at 10:00am. *If you need to reschedule this appointment please call the office at [phone]. Thank you."
--- NOTE | 2017-11-09 11:53 | NUR ---
A: PT RESTING IN BED UPON PM ASSESSMENT. DENIED PAIN. BL FOOT SWELLING CONTINUES;ELEVATED ON PILLOW. H.L. R.A. INDEPENDENT WITH ACTIVITIES. WILL CONTINUE TO MONITOR.
[2017-11-09] MEDS: ACETAMINOPHEN 325 MG TAB PO PRN (12:09)
--- NOTE | 2017-11-09 12:55 | NUR ---
Discharge planning. Plan remains for patient to return home at discharge. No additional needs identified. Case management to follow.
--- NOTE | 2017-11-09 14:49 | Progress Note ---
Subjective Date of Service: Nov 09, 2017. Subjective Pt evaluation today including: conversation w/ patient, physical exam, lab review, review of inpatient medication list Pain: no pain PO Intake: adequate Voiding: no voiding problems patient still responding well to Lasix this morning, reports more urination than normal 2500cc out yesterday breathing is better at rest asked her to ambulate, made it down the sullivan, lips turned blue, saturations in low 80's on room air still with mild cough, productive at times discussed staying additional night, get echo to check EF to make sure nothing has changed Problem List Medical Problems: (1) AMI (acute myocardial infarction) Permanent Comment: STEMI 08/2013 Status: Chronic (2) Anticoagulated on Coumadin Status: Chronic (3) Atrial fibrillation Status: Chronic (4) Atrial fibrillation with rapid ventricular response Status: Acute (5) CAD (coronary artery disease) Status: Chronic (6) GERD (gastroesophageal reflux disease) Status: Chronic (7) Hyperlipidemia Status: Chronic (8) ELISEO (obstructive sleep apnea) Status: Chronic (9) Paroxysmal atrial fibrillation Status: Acute (10) Sarcoidosis Status: Chronic (11) Shortness of breath Status: Acute (12) Skin tear of left lower leg without complication Status: Acute Surgical Problems: (1) Percutaneous transluminal coronary angioplasty status Status: Chronic Review of Systems Constitutional: + weakness, + fatigue Respiratory: + cough, + sputum, + dyspnea on exertion Cardiac: + edema All Other Systems: Reviewed and Negative Medications Current Inpatient Medications Medications (Trade) Dose Ordered Sig/Rain Route Start Time Stop Time Status Last Admin Dose Admin Acetaminophen (Tylenol Tab) 650 mg Q4H PRN PO 11/07/17 20:00 12/07/17 19:59 11/09/17 12:09 650 MG Magnesium Hydroxide (Milk Of Magnesia Susp) 30 ml Q12H PRN PO 11/07/17 20:00 12/07/17 19:59 Cholecalciferol (Vitamin D Tab) 1,000 inter.unit QPM PO 11/07/17 21:00 12/07/17 20:59 11/08/17 20:47 1,000 INTER.UNIT Fluticasone Propionate (Flonase Nasal [place]) 2 sprays DAILY PRN [place] 11/07/17 20:00 12/07/17 19:59 Folic Acid (Folvite Tab) 1 mg QAM PO 11/08/17 09:00 12/08/17 08:59 11/09/17 08:09 1 MG Magnesium Chloride (Slow-Mag Tab) 64 mg BID PO 11/07/17 21:00 12/07/17 20:59 11/09/17 08:09 64 MG Metoprolol Succinate (Toprol Xl Tab) 37.5 mg BID PO 11/07/17 21:00 12/07/17 20:59 11/09/17 08:09 37.5 MG Montelukast Sodium (Singulair Tab) 10 mg HS PO 11/07/17 21:00 12/07/17 20:59 11/08/17 20:45 10 MG Multivitamins (Multivitamin Tab) 1 tab QAM PO 11/08/17 09:00 12/08/17 08:59 11/09/17 08:09 1 TAB Nitroglycerin (Nitrostat Tab) 0.4 mg UD PRN [place] 11/07/17 20:00 12/07/17 19:59 Multivitamins/ Minerals (Multivitamin W/ Minerals Tab) 1 tab QPM PO 11/07/17 21:00 12/07/17 20:59 11/08/17 20:45 1 TAB Ranitidine HCl (zANTac TAB) 150 mg QPM PO 11/07/17 21:00 12/07/17 20:59 11/08/17 20:48 150 MG Cyanocobalamin (Vitamin B-12 Tab) 1,000 mcg QAM PO 11/08/17 09:00 12/08/17 08:59 11/09/17 08:10 1,000 MCG Ferrous Sulfate (Feosol Tab) 325 mg QAM PO 11/08/17 09:00 12/08/17 08:59 11/09/17 08:09 325 MG Ondansetron HCl (Zofran Odt) 8 mg Q6H PRN PO 11/07/17 20:00 12/07/17 19:59 Furosemide 40 mg/ Syringe 4 ml @ 4 mls/min DAILY@0900 IV 11/08/17 09:00 12/08/17 08:59 11/09/17 08:09 4 MLS/MIN Insulin Aspart (novoLOG ASPART) SLIDING SCALE If C... ACHS SC 11/07/17 21:00 12/07/17 20:59 11/09/17 12:03 5 UNITS Glucose (Glucose 40% Gel) UD PRN PO 11/07/17 20:15 12/07/17 20:14 Glucose (Glucose Chew Tab) 1 tabs UD PRN PO 11/07/17 20:15 12/07/17 20:14 Dextrose (Dextrose 50% 50ML Syringe) 50 ml UD PRN IV 11/07/17 20:15 12/07/17 20:14 Glucagon (Glucagon Inj) 1 mg UD PRN SQ 11/07/17 20:15 12/07/17 20:14 Prednisone (PredniSONE TAB) 40 mg DAILY PO 11/09/17 09:00 12/09/17 08:59 11/09/17 08:09 40 MG Albuterol/ Ipratropium (Duoneb) 3 ml Q2H PRN INH 11/08/17 13:45 12/08/17 13:44 Objective Vital Signs Date Time Temp Pulse Resp B/P (MAP) Pulse Ox O2 Delivery O2 Flow Rate FiO2 11/09/17 11:50 Room Air 11/09/17 11:30 36.7 60 16 148/77 (100) 92 Room Air 11/09/17 07:45 Room Air 11/09/17 07:35 36.4 60 16 123/76 (92) 100 Nasal Cannula 2.0 11/09/17 05:16 36.5 62 18 111/61 (78) 97 Nasal Cannula 2.0 11/09/17 04:00 Nasal Cannula 1.0 11/09/17 00:00 Nasal Cannula 1.0 11/08/17 23:01 36.4 60 18 116/68 (84) 99 Nasal Cannula 2.0 11/08/17 20:00 92 Room Air 11/08/17 19:33 36.9 60 18 106/67 (80) 92 Room Air 11/08/17 16:00 90 Room Air 11/08/17 15:02 36.2 69 16 130/84 (99) 90 Room Air Physical Exam General Appearance: WD/WN, no apparent distress Eyes: normal inspection, EOMI, sclerae normal ENT: normal ENT inspection, hearing grossly normal, pharynx normal Neck: supple, no adenopathy, no JVD, trachea midline Respiratory/Chest: chest non-tender, no respiratory distress, no accessory muscle use, + rales (bases) Cardiovascular: no gallop, no JVD, no murmur, + irregularly irregular Abdomen: normal bowel sounds, non tender, soft, no organomegaly Extremities: normal range of motion, non-tender, normal inspection, no calf tenderness, pelvis stable, + pedal edema (trace bilaterally, mostly in feet) Neurologic/Psychiatric: education intern II-XII nml as tested, no motor/sensory deficits, alert, normal mood/affect, oriented x 3 Skin: normal color, warm/dry, no rash Laboratory Results Last 24 Hours Test 11/08/17 16:19 11/08/17 20:25 11/09/17 06:47 11/09/17 07:20 Bedside Glucose 172 mg/dl 115 mg/dl 108 mg/dl White Blood Count 7.40 K/uL Red Blood Count 3.78 M/uL Hemoglobin 12.6 g/dL Hematocrit 38.5 % Mean Corpuscular Volume 101.9 fL Mean Corpuscular Hemoglobin 33.3 pg Mean Corpuscular Hemoglobin Concent 32.7 g/dl Platelet Count 205 K/uL Mean Platelet Volume 10.3 fL Neutrophils (%) (Auto) 74.6 % Lymphocytes (%) (Auto) 12.6 % Monocytes (%) (Auto) 12.2 % Eosinophils (%) (Auto) 0.4 % Basophils (%) (Auto) 0.1 % Neutrophils # (Auto) 5.52 K/uL Lymphocytes # (Auto) 0.93 K/uL Monocytes # (Auto) 0.90 K/uL Eosinophils # (Auto) 0.03 K/uL Basophils # (Auto) 0.01 K/uL RDW Standard Deviation 63.2 fL RDW Coefficient of Variation 17.1 % Immature Granulocyte % (Auto) 0.1 % Immature Granulocyte # (Auto) 0.01 K/uL Prothrombin Time 23.7 SECONDS Prothromb Time International Ratio 2.3 Activated Partial Thromboplast Time 35.5 SECONDS Partial Thromboplastin Ratio 1.4 Sodium Level 138 mmol/L Potassium Level 3.5 mmol/L Chloride Level 100 mmol/L Carbon Dioxide Level 32 mmol/L Anion Gap 6.0 mmol/L Blood Urea Nitrogen 28 mg/dl Creatinine 0.97 mg/dl Est Creatinine Clear Calc Drug Dose 48.2 ml/min Estimated GFR () 65.8 Estimated GFR (Non- 56.7 BUN/Creatinine Ratio 28.9 Random Glucose 108 mg/dl Calcium Level 9.9 mg/dl Magnesium Level 1.9 mg/dl Test 11/09/17 11:45 Bedside Glucose 113 mg/dl Assessment and Plan Acute respiratory failure with hypoxia/combination of acute CHF and COPD exacerbation Acute Respiratory Failure with Hypoxia 2/2 Acute Diastolic CHF: - diuresed dramatically yesterday and this morning, -4100cc thus far - Continue Lasix 40 mg IV daily again tomorrow AM, will need daily Lasix on discharge - still with some bibasilar rales, edema in feet/ankles - will check an echo to assess EF, prior echos showed EF 55% - desaturated into the 80's on room air today when walking, fine at rest, check 2 step tomorrow Paroxysmal Atrial Fibrillation - CAD/VT - Supratherapeutic INR: - INR down to 2.3, going to resume Coumadin at 3mg daily - Toprol XL 37.5 mg BID, HR is fine Possible Mild COPD Exacerbation - Does not appear to be in an exacerbation at this time. Airflow if good diffusely and no wheezing - Will de-escalate steroids to Prednisone 40 mg x 5 days then stop - Sinulair 10 mg daily and Duonebs PRN - cough more productive, add Zithromax 500mg daily T2DM: - Metformin currently on hold and coverage is by SSI - can resume Metformin on D /C DVT Prophylaxis: Supratherapeutic INR Code Status: FULL RESUSCITATION Disposition: - Continue diuresis - possible D/C tomorrow Continued [facility] stay due to: multiple IV medications needed Discharge planning: home
--- NOTE | 2017-11-09 16:00 | NUR ---
A: Patient returned to room from echo, reports feeling light-headed. VS obtained, stable, WNL; SpO2 95% on RA. Paced on the monitor. Patient given a snack, BSG to be obtained, will continue to monitor. Addendum: 11/09/17 at 2047 by Irish Rosales RN BSG at 1630 164. Patient reported resolution of symptoms on reassessment at that time.
[2017-11-09] MEDS: WARFARIN SOD 3 MG TAB PO SCH (16:23)
--- NOTE | 2017-11-09 17:06 | ECHOCARDIOGRAM REPORT ---
*NOTICE TO RECEIVING [employer]Y This information is strictly Confidential and protected under [place] law. [place] law prohibits you from making any further disclosure of this information unless further disclosure is expressly permitted by the written consent of the person to whom it pertains or is authorized by law. A general authorization for the release of medical or other information is not sufficient for this purpose. Hospital accepts no responsibility if the information is made available to any other person, INCLUDING THE PATIENT. Interpretation Summary * Name: ERNESTINE BRAR Study Date: 11/09/2017 02:48 PM BP: 148/86 mmHg * Patient Location: [facility]\S\N287\S\2 HR: 65 * : 1940 (M/d/yyyy) Gender: Female Height: 61 in * Age: 77 yrs Ethnicity: CA Weight: 182 lb * Ordering Physician: Giovanni Lange * Referring Physician: Farheen Mayo * Performed By: Jhon Nina RCS * * Reason For Study: CHF * BSA: 1.8 m2 * -- Conclusions -- * There is normal left ventricular wall thickness. * The left ventricular wall motion is normal. * The qualitative LV ejection fraction=55% * The LV The right ventricle is moderately dilated. * The right ventricular systolic function is reduced as assessed by tricuspid annular plane systolic excursion (TAPSE) (TAPSE <1.6 cm). * The left atrium is severely dilated. * The right atrium is moderately dilated. * Aortic valve sclerosis moderate, without significant aortic valvular stenosis. * There is moderate mitral regurgitation. * There is moderate to severe tricuspid regurgitation. * Severe pulmonary hypertension is present. * The PA systolic pressure is calculated to be 65 mm Hg. * Compared to the prior study dated 05/18/16, right ventricular dysfunction and pulmonary hypertension is now present. Procedure Details * A complete two-dimensional transthoracic echocardiogram was performed (2D, M-mode, Doppler and color flow Doppler). Left Ventricle * The left ventricle is normal in size. * There is normal left ventricular wall thickness. * Left ventricular systolic function is normal. * The qualitative LV ejection fraction=55% * The left ventricular wall motion is normal. Right Ventricle * The right ventricle is moderately dilated. * The right ventricular systolic function is mildly reduced. * The right ventricular systolic function is reduced as assessed by tricuspid annular plane systolic excursion (TAPSE) (TAPSE <1.6 cm). Atria * The left atrium is severely dilated. * The right atrium is moderately dilated. * There is no evidence of atrial septal defect, but resolution does not allow assessment for a patent foramen ovale. Mitral Valve * There is moderate mitral annular calcification. * There is no mitral valve stenosis. * There is moderate mitral regurgitation. Tricuspid Valve * The tricuspid valve is normal. * There is no tricuspid stenosis. * There is moderate to severe tricuspid regurgitation. * Severe pulmonary hypertension is present. The PA systolic pressure is calculated to be 65 mm Hg. Aortic Valve * The aortic valve is trileaflet. * Aortic valve sclerosis moderate, without significant aortic valvular stenosis. * There is no significant aortic regurgitation. Pulmonic Valve * The pulmonary valve is inadequately visualized, but the Doppler data is adequate for interpretation. * There is no pulmonic valvular stenosis. * Mild pulmonic valvular regurgitation. Great Vessels * The aortic root and proximal ascending aorta are normal sized. Pericardium/Pleural * There is no pericardial effusion. Right Ventricle * An intracardiac device lead is noted in the right atrium that traverses the tricuspid valve and terminates in the right ventricular apex. Great Vessels * Normal inferior vena cava diameter and respiratory variation suggests normal central venous pressure. MMode 2D Measurements and Calculations IVSd 0.96 cm IVSs 1.4 cm LVIDd 4.5 cm LVIDs 3.4 cm LVPWd 0.90 cm LVPWs 1.2 cm IVS/LVPW 1.1 FS 23.5 % EDV(Teich) 91.5 ml ESV(Teich) 48.3 ml EF(Teich) 47.2 % EDV(cubed) 89.9 ml ESV(cubed) 40.2 ml EF(cubed) 55.3 % % IVS thick 45.1 % % LVPW thick 38.6 % LV mass(C)d 137.1 grams LV mass(C)dI 75.5 grams/m\S\2 LV mass(C)s 152.0 grams LV mass(C)sI 83.7 grams/m\S\2 SV(Teich) 43.2 ml SI(Teich) 23.8 ml/m\S\2 SV(cubed) 49.7 ml SI(cubed) 27.4 ml/m\S\2 Ao root diam 3.2 cm Ao root area 7.9 cm\S\2 ACS 1.7 cm LA dimension 5.5 cm asc Aorta Diam 3.1 cm LA/Ao 1.7 EDV(MOD-sp4) 92.5 ml ESV(MOD-sp4) 53.4 ml EF(MOD-sp4) 42.3 % EDV(MOD-sp2) 99.7 ml ESV(MOD-sp2) 55.3 ml EF(MOD-sp2) 44.6 % SV(MOD-sp4) 39.1 ml SI(MOD-sp4) 21.6 ml/m\S\2 SV(MOD-sp2) 44.4 ml SI(MOD-sp2) 24.5 ml/m\S\2 Doppler Measurements and Calculations MV E max yariel 113.1 cm/sec MV P1/2t max yariel 130.6 cm/sec MV P1/2t 59.4 msec MVA(P1/2t) 3.7 cm\S\2 MV dec slope 644.5 cm/sec\S\2 MV dec time 0.20 sec Ao V2 max 157.0 cm/sec Ao max PG 9.9 mmHg Ao max PG (full) 8.0 mmHg LV V1 max PG 1.9 mmHg LV V1 max 69.1 cm/sec PA V2 max 59.4 cm/sec PA max PG 1.4 mmHg PI max yariel 237.1 cm/sec PI max PG 22.5 mmHg PI dec slope 279.7 cm/sec\S\2 PI P1/2t 248.3 msec TR max yariel 365.0 cm/sec
--- NOTE | 2017-11-09 20:19 | NUR ---
A: Patient sitting up in chair, denies complaints at this time. Paced on the monitor. Maintaining saturations on RA. Will continue to monitor.
[2017-11-09] MEDS: CEROVITE ADV FORMULA TAB PO SCH (20:52)
[2017-11-09] MEDS: MONTELUKAST SOD 10 MG TAB PO SCH (20:52)
[2017-11-09] MEDS: CHOLECALCIFEROL 1000 INTER.UNIT TAB PO SCH (20:53)
[2017-11-09] MEDS: RANITIDINE HCL 150 MG TAB PO SCH (20:53)
[2017-11-10] VITALS (7 sets, daily range): BP systolic 111–130; BP diastolic 63–80; PULSE 59–75; TEMP 36.3–36.6; O2SAT 90–100
--- NOTE | 2017-11-10 | NUR ---
A: Patient is resting well. No complaints of pain or sings of distress. Patient remains on the residential monitor. Paced- 60s. Patient agrees to ring for assistance. Call tolentino within reach. Will continue to monitor and assess patient.
[2017-11-10 06:19] LABS: EOS % 1.2 %; EOS ABS # 0.08 K/uL (0-0.5); HEMATOCRIT 35.8 % (37-47); HEMOGLOBIN 11.9 g/dL (12.0-16.0); LYMPH % 13.1 %; LYMPH ABS # 0.86 K/uL (1.2-3.4); MEAN CELL VOLUME 100.6 fL (80-100); MEAN CORPUSCULAR HEMOGLOBIN 33.4 pg (25-34); MEAN CORPUSCULAR HGB CONC 33.2 g/dl (32-36); MEAN PLATELET VOLUME 10.4 fL (7.4-10.4); MONO % 14.9 %; MONO ABS # 0.98 K/uL (0.11-0.59); NEUT % 70.8 %; NEUT ABS # 4.66 K/uL (1.4-6.5); PLATELET COUNT 181 K/uL (130-400); RED CELL DISTRIBUTION WIDTH CV 16.4 % (11.5-14.5); RED CELL DISTRIBUTION WIDTH SD 60.8 fL (36.4-46.3); WHITE BLOOD COUNT 6.58 K/uL (4.8-10.8)
[2017-11-10 06:53] LABS: CALCIUM 9.5 mg/dl (8.5-10.1); CREATININE 0.73 mg/dl (0.60-1.20); POTASSIUM 3.3 mmol/L (3.5-5.1)
[2017-11-10 07:09] LABS: INR 1.7 (0.9-1.1); PTT PATIENT 31.2 SECONDS (21.0-31.0)
[2017-11-10] MEDS: FUROSEMIDE INJ 40 MG in SYRINGE 0 ML IV SCH (08:25)
[2017-11-10] MEDS: FERROUS SULFATE 325 MG TAB PO SCH (08:26)
[2017-11-10] MEDS: MAGNESIUM CHLORIDE 64MG DELAYED REL TAB PO SCH ×2 (08:27→21:35)
[2017-11-10] MEDS: METOPROLOL SUCC 25MG EXT REL TAB PO SCH ×2 (08:27→21:35)
[2017-11-10] MEDS: MULTIVITAMIN TAB PO SCH (08:27)
[2017-11-10] MEDS: CYANOCOBALAMIN 500 MCG TAB (VIT B-12) PO SCH (08:28)
[2017-11-10] MEDS: ACETAMINOPHEN 325 MG TAB PO PRN (08:29)
[2017-11-10] MEDS: INSULIN ASPART 100 UNITS/ML 3 ML PEN SC SCH ×4 (08:32→21:40)
--- NOTE | 2017-11-10 08:40 | NUR ---
ID: Pt. is AAOx4. Pt. complains of pain and weakness in the right shoulder, medicated as needed. Lungs are clear. Pt. is paced. Pt. has bilateral lower leg swelling/edema pitting +1 with some black and blue discoloration. Pt. reports no tenderness with tough. Right AC saline lock, intact and asymptomatic. Pt. is sitting up on side of the bed eating breakfast. OOB independently with supervision.
[2017-11-10] MEDS ORDERED: OPTIRAY 320 IV PRN (09:00)
--- NOTE | 2017-11-10 09:34 | DIAGNOSTIC IMAGING REPORT ---
(CHEST FOR PE) ANGIO WITH CLINICAL HISTORY: 77 years-old Female presenting with ^Hypoxia, right heart strain, dyspnea. TECHNIQUE: Multidetector CT angiography of the chest was performed after administration of intravenous contrast. 3-D volumetric and/or maximum intensity projection (MIP) images were subsequently reconstructed for review. IV contrast: 85 mL of Optiray 320. A dose lowering technique was used consistent with the principles of ALARA (as low as reasonably achievable). COMPARISON: 02/19/2007. CT DOSE (mGy.cm): The estimated cumulative dose is 391.05 mGy.cm. FINDINGS: Acid Cleaner topogram: Left subclavian pacer. Posterior lumbar fusion hardware. Pulmonary vasculature: The study is adequate for assessment of the pulmonary vascular tree. No filling defect within the pulmonary arteries to suggest embolus. Main pulmonary artery is top normal in size. Subtle flattening of the interventricular septum and relative enlargement of the right ventricle. No intracardiac filling defect. Reflux of contrast into the IVC and hepatic veins. Remaining chest: On soft tissue windows, calcified nodule noted in the right lobe of the thyroid. Left subclavian pacer with leads to the right atrium, right ventricular apex, and coronary sinus. Numerous prominent mediastinal and bilateral hilar lymph nodes are stable to slightly increased from prior. Atherosclerosis of the aorta. Multichamber enlargement of the heart with pronounced biatrial enlargement. Coronary artery, aortic valve, mitral annular calcification. No pericardial or pleural effusion. Hyperdense material in the stomach may relate to medication administration. On lung windows, dependent groundglass and reticulation increased from prior. Mosaic attenuation and/or patchy groundglass increased from prior. Mild interlobular septal thickening, which appears smooth. A developing crazy paving pattern may be present. No pulmonary nodules. Calcified granuloma at the superior segment of the right lower lobe. Central airways patent. On bone windows, degenerative changes of the spine. Partially visualized lumbar fusion hardware. Degenerative changes of the bilateral glenohumeral joints. IMPRESSION: 1. No evidence of pulmonary embolus. 2. Prominent mosaic attenuation/patchy groundglass opacities with mild interlobular septal thickening. Although this could represent small airways disease or be vascular in etiology at the patient has a history of chronic thromboembolic disease, this could represent volume overload with developing pulmonary edema in the setting of cardiomegaly. 3. Flattening of the interventricular septum and reflux of contrast into the hepatic veins suggest elevated right heart pressure and right heart strain. 4. Persistent mediastinal and hilar lymphadenopathy. This is nonspecific and can be seen in the setting of sarcoidosis among other etiologies. This is stable to minimally progressed since 2006. The report will be called/faxed according to standard departmental protocol. Electronically signed by: Husam Michelle M.D. 11/10/2017 9:33 AM Dictated Date/Time: 11/10/2017 9:23 AM
--- NOTE | 2017-11-10 10:22 | NUR ---
A: AGREE WITH LIZ MONTESJOINERY FACTORY WORKER AND CHARTING.
--- NOTE | 2017-11-10 12:42 | NUR ---
A: Assessment unchanged, pt. was awake eating lunch in chair.
--- NOTE | 2017-11-10 14:20 | Progress Note ---
Subjective Date of Service: Nov 10, 2017. Subjective Pt evaluation today including: conversation w/ patient, physical exam, lab review, review of studies, review of inpatient medication list Pain: no pain PO Intake: adequate Voiding: no voiding problems patient continues to diurese really well reviewed echocardiogram, evidence of RV dysfunction, pulmonary hypertension, left atrial dilation, the left ventricle EF still good at 55% since this is new finding of right heart failure, ordered CTA chest to rule out chronic thromboembolism CT chest: no evidence of PE (acute or chronic), there is lymphadenopathy consistent with her sarcoidosis after discussing situation with patient, and she mentioned her sarcoidosis, this would be most likely cause of her pulmonary HTN Problem List Medical Problems: (1) AMI (acute myocardial infarction) Permanent Comment: STEMI 08/2013 Status: Chronic (2) Anticoagulated on Coumadin Status: Chronic (3) Atrial fibrillation Status: Chronic (4) Atrial fibrillation with rapid ventricular response Status: Acute (5) CAD (coronary artery disease) Status: Chronic (6) GERD (gastroesophageal reflux disease) Status: Chronic (7) Hyperlipidemia Status: Chronic (8) ELISEO (obstructive sleep apnea) Status: Chronic (9) Paroxysmal atrial fibrillation Status: Acute (10) Sarcoidosis Status: Chronic (11) Shortness of breath Status: Acute (12) Skin tear of left lower leg without complication Status: Acute Surgical Problems: (1) Percutaneous transluminal coronary angioplasty status Status: Chronic Review of Systems Constitutional: + weakness, + fatigue Respiratory: + dyspnea on exertion Cardiac: + edema Female : + urinary frequency (diuresing well) All Other Systems: Reviewed and Negative Medications Current Inpatient Medications Medications (Trade) Dose Ordered Sig/Rain Route Start Time Stop Time Status Last Admin Dose Admin Acetaminophen (Tylenol Tab) 650 mg Q4H PRN PO 11/07/17 20:00 12/07/17 19:59 11/10/17 08:29 650 MG Magnesium Hydroxide (Milk Of Magnesia Susp) 30 ml Q12H PRN PO 11/07/17 20:00 12/07/17 19:59 Cholecalciferol (Vitamin D Tab) 1,000 inter.unit QPM PO 11/07/17 21:00 12/07/17 20:59 11/09/17 20:53 1,000 INTER.UNIT Fluticasone Propionate (Flonase Nasal Nesbit) 2 sprays DAILY PRN [place] 11/07/17 20:00 12/07/17 19:59 Folic Acid (Folvite Tab) 1 mg QAM PO 11/08/17 09:00 12/08/17 08:59 11/10/17 08:28 1 MG Magnesium Chloride (Slow-Mag Tab) 64 mg BID PO 11/07/17 21:00 12/07/17 20:59 11/10/17 08:27 64 MG Metoprolol Succinate (Toprol Xl Tab) 37.5 mg BID PO 11/07/17 21:00 12/07/17 20:59 11/10/17 08:27 37.5 MG Montelukast Sodium (Singulair Tab) 10 mg HS PO 11/07/17 21:00 12/07/17 20:59 11/09/17 20:52 10 MG Multivitamins (Multivitamin Tab) 1 tab QAM PO 11/08/17 09:00 12/08/17 08:59 11/10/17 08:27 1 TAB Nitroglycerin (Nitrostat Tab) 0.4 mg UD PRN [place] 11/07/17 20:00 12/07/17 19:59 Multivitamins/ Minerals (Multivitamin W/ Minerals Tab) 1 tab QPM PO 11/07/17 21:00 12/07/17 20:59 11/09/17 20:52 1 TAB Ranitidine HCl (zANTac TAB) 150 mg QPM PO 11/07/17 21:00 12/07/17 20:59 11/09/17 20:53 150 MG Cyanocobalamin (Vitamin B-12 Tab) 1,000 mcg QAM PO 11/08/17 09:00 12/08/17 08:59 11/10/17 08:28 1,000 MCG Ferrous Sulfate (Feosol Tab) 325 mg QAM PO 11/08/17 09:00 12/08/17 08:59 11/10/17 08:26 325 MG Ondansetron HCl (Zofran Odt) 8 mg Q6H PRN PO 11/07/17 20:00 12/07/17 19:59 Furosemide 40 mg/ Syringe 4 ml @ 4 mls/min DAILY@0900 IV 11/08/17 09:00 12/08/17 08:59 11/10/17 08:25 4 MLS/MIN Insulin Aspart (novoLOG ASPART) SLIDING SCALE If C... ACHS SC 11/07/17 21:00 12/07/17 20:59 11/10/17 12:22 3 UNITS Glucose (Glucose 40% Gel) UD PRN PO 11/07/17 20:15 12/07/17 20:14 Glucose (Glucose Chew Tab) 1 tabs UD PRN PO 11/07/17 20:15 12/07/17 20:14 Dextrose (Dextrose 50% 50ML Syringe) 50 ml UD PRN IV 11/07/17 20:15 12/07/17 20:14 Glucagon (Glucagon Inj) 1 mg UD PRN SQ 11/07/17 20:15 12/07/17 20:14 Albuterol/ Ipratropium (Duoneb) 3 ml Q2H PRN INH 11/08/17 13:45 12/08/17 13:44 Warfarin Sodium (Coumadin Tab) 3 mg DAILY@16 PO 11/09/17 16:00 12/09/17 15:59 11/09/17 16:23 3 MG Ioversol (Optiray 320) 100 ml UD PRN IV 11/10/17 09:00 11/14/17 08:59 Prednisone (PredniSONE TAB) 30 mg DAILY PO 11/11/17 09:00 12/09/17 08:59 Objective Vital Signs Date Time Temp Pulse Resp B/P (MAP) Pulse Ox O2 Delivery O2 Flow Rate FiO2 11/10/17 12:38 Room Air 11/10/17 11:34 36.3 75 17 130/80 (97) 90 11/10/17 08:40 Room Air 11/10/17 08:25 64 11/10/17 07:18 36.3 59 18 115/71 (86) 100 11/10/17 04:10 36.5 62 18 116/71 (86) 99 Nasal Cannula 2.0 11/10/17 04:00 Room Air 11/10/17 00:00 Room Air 11/09/17 23:01 36.3 60 18 107/66 (80) 95 Room Air 11/09/17 20:16 36.6 66 18 131/75 (93) 93 Room Air 11/09/17 20:00 93 Room Air 11/09/17 16:00 95 Room Air 11/09/17 15:49 37.0 65 20 148/86 (106) 95 Room Air Physical Exam General Appearance: WD/WN, no apparent distress Eyes: normal inspection, EOMI, sclerae normal ENT: normal ENT inspection, hearing grossly normal, pharynx normal Neck: supple, no adenopathy, no JVD, trachea midline Respiratory/Chest: chest non-tender, lungs clear, normal breath sounds, no respiratory distress, no accessory muscle use Cardiovascular: regular rate, rhythm, no edema, no gallop, no JVD, no murmur Abdomen: normal bowel sounds, non tender, soft, no organomegaly Extremities: normal range of motion, non-tender, normal inspection, no pedal edema, no calf tenderness, pelvis stable Neurologic/Psychiatric: venue manager II-XII nml as tested, no motor/sensory deficits, alert, normal mood/affect, oriented x 3 Skin: normal color, warm/dry, no rash Laboratory Results Last 24 Hours Test 11/09/17 16:25 11/09/17 20:13 11/10/17 05:58 11/10/17 07:41 Bedside Glucose 164 mg/dl 181 mg/dl 87 mg/dl White Blood Count 6.58 K/uL Red Blood Count 3.56 M/uL Hemoglobin 11.9 g/dL Hematocrit 35.8 % Mean Corpuscular Volume 100.6 fL Mean Corpuscular Hemoglobin 33.4 pg Mean Corpuscular Hemoglobin Concent 33.2 g/dl Platelet Count 181 K/uL Mean Platelet Volume 10.4 fL Neutrophils (%) (Auto) 70.8 % Lymphocytes (%) (Auto) 13.1 % Monocytes (%) (Auto) 14.9 % Eosinophils (%) (Auto) 1.2 % Basophils (%) (Auto) 0.0 % Neutrophils # (Auto) 4.66 K/uL Lymphocytes # (Auto) 0.86 K/uL Monocytes # (Auto) 0.98 K/uL Eosinophils # (Auto) 0.08 K/uL Basophils # (Auto) 0.00 K/uL RDW Standard Deviation 60.8 fL RDW Coefficient of Variation 16.4 % Immature Granulocyte % (Auto) 0.0 % Immature Granulocyte # (Auto) 0.00 K/uL Prothrombin Time 17.4 SECONDS Prothromb Time International Ratio 1.7 Activated Partial Thromboplast Time 31.2 SECONDS Partial Thromboplastin Ratio 1.2 Sodium Level 140 mmol/L Potassium Level 3.3 mmol/L Chloride Level 103 mmol/L Carbon Dioxide Level 33 mmol/L Anion Gap 4.0 mmol/L Blood Urea Nitrogen 28 mg/dl Creatinine 0.73 mg/dl Est Creatinine Clear Calc Drug Dose 63.4 ml/min Estimated GFR () 92.7 Estimated GFR (Non- 80.0 BUN/Creatinine Ratio 38.4 Random Glucose 92 mg/dl Calcium Level 9.5 mg/dl Magnesium Level 1.9 mg/dl Test 11/10/17 11:27 Bedside Glucose 103 mg/dl Assessment and Plan Acute respiratory failure with hypoxia/combination of acute CHF and COPD exacerbation Acute Respiratory Failure with Hypoxia 2/2 Acute Diastolic CHF, acute right sided heart failure - diuresed 5 liters and weight down 4kg - Continue Lasix 40 mg IV daily - lungs clearer today, still with edema - echo shows preserved LV EF at 55%, dilated left atrium, dilated right atrium, RV dysfunction, pulmonary hypertension - most likely etiology is her sarcoidosis - consult [facility] cardiology for management of right heart failure - desaturated into the 80's on room air when walking yesterday, fine at rest, check 2 step prior to discharge Paroxysmal Atrial Fibrillation - CAD/TN - Supratherapeutic INR: - INR down to 1.7, continue Coumadin at 3mg daily - Toprol XL 37.5 mg BID, HR is fine Possible Mild COPD Exacerbation - Does not appear to be in an exacerbation at this time. Airflow if good diffusely and no wheezing - Will de-escalate steroids to Prednisone 30mg x 2 days, 20mg x 2 days then 10mg x 2 days - Sinulair 10 mg daily and Duonebs PRN - cough more productive, add Zithromax 500mg daily for 5 days, today is day 2 Sarcoidosis: follows with [facility] pulmonology, has not seen anyone in 8 months due to physician leaving T2DM: - Metformin currently on hold and coverage is by SSI - can resume Metformin on D /C DVT Prophylaxis: Supratherapeutic INR Code Status: FULL RESUSCITATION Disposition: - Continue diuresis, consult cardiology for recommendations Continued [facility] stay due to: multiple IV medications needed Discharge planning: home
--- NOTE | 2017-11-10 16:00 | NUR ---
A: The patient is alert and oriented x4, denies pain, nausea and shortness of breath presently. The patient's vital signs are stable on room air, and she is in a paced rhythm on the registered nurse cardiac telemetry. The patient is able to stand independently and ambulate to the bathroom without assistance, gait is steady and the patient states that she does not become dyspneic to the bathroom and back. Right antecubital peripheral IV site is saline locked and asymptomatic. See full assessment. Call tolentino is within reach.
[2017-11-10] MEDS: WARFARIN SOD 3 MG TAB PO SCH (16:13)
--- NOTE | 2017-11-10 17:47 | Cardiology Consultation ---
Cardiology Consultation Date of Consultation: Nov 10, 2017 History of Present Illness Margarita Hendrix is a 77 year old female seen in cardiology consultation per the request of Dr Lange for the evaluation of right ventricular systolic dysfunction and congestive heart failure symptoms. The patient's primary financial wellness coach is Dr. Girard of our practice, although I seen the patient in the office in the past as acute visit for atrial fibrillation in February 2016. The patient states that approximately 10 days ago she started having what she believes were cold symptoms with feelings of cough and nasal congestion. She attempted to go to the doctor recently, however with minimal walking her oxygen levels became low and she became significantly short of breath. She notes that she has been prescribed furosemide 20 mg 3 days per week that she takes as needed for lower extremity edema, but she believes that she has had progressive lower extremity edema over the last few weeks she noted that when she went to put on her periods for nondenominational on [facility] last Sunday that her legs were so swollen that she could not fit to her parents the way she usually does. Past Medical/Surgical History Problem List: Medical Problems: (1) Acute CHF (2) AMI (acute myocardial infarction) (3) Anticoagulated on Coumadin (4) Arm laceration (5) Atrial fibrillation (6) Atrial fibrillation with rapid ventricular response (7) Benign hypertension (8) CAD (coronary artery disease) (9) Cellulitis (10) Cellulitis of left lower extremity (11) Cellulitis of left lower extremity without foot (12) Cellulitis of leg, right (13) GERD (gastroesophageal reflux disease) (14) Hyperlipidemia (15) Hypoxia (16) Knee hemarthrosis, left (17) Laceration of lower extremity (18) Lumbar disc disease (19) Lumbar disc disease (20) MRSA (21) ELISEO (obstructive sleep apnea) (22) Pain of left lower leg (23) Right-sided epistaxis (24) rotator cuff surgery (25) Sarcoidosis (26) Shoulder sprain (27) Skin tear of forearm without complication (28) Skin tear of lower leg without complication (29) Spinal stenosis (30) Spinal stenosis (31) Spinal stenosis (32) Supratherapeutic INR (33) Supratherapeutic INR Surgical Problems: (1) Percutaneous transluminal coronary angioplasty status (2) Postoperative state (3) Total knee replacement status Social History Problems: (1) Laceration of lower extremity History Past Medical History: 1. Sarcoidosis with pulmonary and eye involvement 2. Long-standing history of paroxysmal atrial fibrillation, refractory to multiple medications strategy is multiple antiarrhythmic agents, for which she ultimately underwent AV junction ablation and insertion of the dual-chamber/ biventricular pacemaker May 2016 at [facility] 3. Past embolic stroke 4. LAD territory myocardial infarction to place 2012, shortly after shoulder surgery. Her antiplatelet and type coagulation medications have been stopped prior to shoulder surgery, based on cardiac catheterization findings, was felt that perhaps she had an embolic event to her LAD territory was treated with plain balloon angioplasty 5. Stage III chronic kidney disease 6. Obstructive sleep apnea on CPAP 7. diastolic heart failure 8. hypertension Past Surgical History: 1. Prior rotator cuff repair, 2012 2. Right knee replacement 1995 3. Bilateral carpal tunnel surgery 1989 4. Ganglion cyst resection 5. Remote tubal ligation 6. Right knee replacement 2004, further knee surgery 2009 7. AV junction ablation, dual-chamber/biventricular pacemaker insertion May 2016 Social History: She is a nonsmoker Family History: Noncontributory Review Of Systems See above for pertinent positives & negatives. A total of 10 systems reviewed and were otherwise negative. Allergies Coded Allergies: Adhesives (Verified Allergy, Unknown, RASH, 11/07/17) Morphine (Verified Adverse Reaction, Unknown, SENSITIVITY, 11/07/17) Medications Reported Home Medications Medications Dose Route/Sig Max Daily Dose Days Date Category Dose Instructions Spiriva Handihaler (Tiotropium Dinuba) 30 Puff/540 Mcg Aerp 1 Cap INH PRN 09/28/17 Reported Slow-Mag Tab (Magnesium Chloride) 64 Mg Tabcr 64 Mg PO BID 09/28/17 Reported Keflex (Cephalexin Monohydrate) 500 Mg Cap 500 Mg PO QAM 06/28/17 Reported Vitamin E 400 Iu (Vitamin E) Unknown Strength Cap 1 Tab PO QPM 01/06/17 Reported Vitamin D 1000 Unit (Cholecalciferol) 1,000 Unit Cap 1,000 Inter.unit PO QPM 01/06/17 Reported Ferrous Sulfate 325 Mg Tab 325 Mg PO QAM 01/06/17 Reported Montelukast Sodium (Montelukast Sod) 10 Mg Tab 10 Mg PO HS 01/06/17 Reported Ranitidine HCl 150 Mg Tab 150 Mg PO QPM 01/06/17 Reported Furosemide 20 Mg Tab 20 Mg PO 3XWK 01/06/17 Reported TAKE THIS MEDICATION EVERY SUNDAY,SUNDAY AND SUNDAY Metoprolol Succinate ER (Metoprolol Succinate) 25 Mg Tabcr 37.5 Mg PO BID 01/06/17 Reported Warfarin Sodium 4 Mg Tab 2 Mg PO 2XWK 01/06/17 Reported TAKE HALF A TABLET (2 MG) EVERY SUNDAY AND SUNDAY OR OTHERWISE DIRECTED TO TAKE BY ANTICOAGULATION CLINIC/MD Metformin HCl 500 Mg Tab 500 Mg PO BID 01/06/17 Reported Fluticasone Propionate 120 Sprays/6000 Mcg Inha 2 Sprays [place] DAILY PRN 01/06/17 Reported Folvite (Folic Acid) 1 Mg Tab 1 Mg PO QAM 04/11/16 Reported Percocet 5MG/325MG (Oxycodone/Acetaminophen) Tab 1-2 Tabs PO Q4H PRN 03/06/16 Reported PAIN Ocuvite Preservision (Multivitamins/Minerals) 1 Tab Tab 1 Tab PO BID 03/06/16 Reported Vitamin B12 (Cyanocobalamin) 1,000 Mcg Tab 1,000 Mcg PO QPM 10/19/15 Reported Probiotic (Probiotic Product) 1 Cap Cap 2 Cap PO QPM 10/19/15 Reported Combivent Respimat (Ipratropium-Albuterol) 1 Aer Aer 1 Puff INH UD PRN 03/02/15 Reported Multi Vitamin Daily (Multiple Vitamin) 1 Tab Tab 1 Tab PO QAM 03/02/15 Reported Nitrostat (Nitroglycerin) 0.4 Mg Tab 0.4 Mg UT UD PRN 01/29/[address] ONE TABLET UNDER THE TONGUE EVERY 5 MINUTES FOR UP TO 3 DOSES IF NEEDED FOR CHEST PAIN. Aspirin Low Dose (Aspirin) 81 Mg Tab 81 Mg PO 3XWK 01/29/14 Reported TAKE THIS MEDICATION EVERY SUNDAY,SUNDAY AND SUNDAY Warfarin Sodium 4 Mg Tab 4 Mg PO 5XWK 01/29/14 Reported TAKE 4 MG EVERY SUNDAY,SUNDAY,SUNDAY,SUNDAY AND SUNDAY OR OTHERWISE DIRECTED TO TAKE BY ANTICOAGULATION CLINIC/MD. Physical Exam Vital Signs (Last 8hrs): Last 8 Hrs Date Time Temp Pulse Resp B/P (MAP) Pulse Ox O2 Delivery O2 Flow Rate FiO2 11/10/17 16:00 Room Air 11/10/17 14:59 36.6 61 16 118/77 (91) 92 11/10/17 12:38 Room Air 11/10/17 11:34 36.3 75 17 130/80 (97) 90 General Appearance: Alert and Oriented x3. NAD. Head: Normocephalic Atraumatic. Eyes: PERRLA, EOMI, conjunctiva and sclera clear Neck: Supple. No carotid bruits noted. No JVD. No HJD. Respiratory: Mildly decreased breath sounds bilaterally at the bases Cardiovascular: Reg rate and rhythm. S1 and S2 noted. No murmurs, rubs, gallops. PMI non displace. Abdomen: Normal bowel sounds, soft nontender. no abdominal bruits. Extremities: 1+ bilateral lower extremity edema Neuro: No focal deficits. Psychiatric: Normal affect. Data Last Resulted 11/10/17 05:58 Red Blood Count 3.56, Mean Corpuscular Volume 100.6, Mean Corpuscular Hemoglobin 33.4, Mean Corpuscular Hemoglobin Concent 33.2, Mean Platelet Volume 10.4, Neutrophils (%) (Auto) 70.8, Lymphocytes (%) (Auto) 13.1, Monocytes (%) ( Auto) 14.9, Eosinophils (%) (Auto) 1.2, Basophils (%) (Auto) 0.0, Neutrophils # (Auto) 4.66, Lymphocytes # (Auto) 0.86, Monocytes # (Auto) 0.98, Eosinophils # ( Auto) 0.08, Basophils # (Auto) 0.00 Last Resulted 11/10/17 05:58 Past 24 Hours Test 11/10/17 05:58 Range/Units Prothromb Time International Ratio 1.7 H 0.9-1.1 Prothrombin Time 17.4 H 9.0-12.0 SECONDS EKG tracings performed this hospital stay on 11/07, 11/08, and 11/09/17 revealed ventricular paced rhythm in the 60 beat per minute range, with appearance of underlying atrial fibrillation since no discernible P waves. Summary of transthoracic echocardiogram performed 11/09/17 and reviewed independently by the undersigned: * -- Conclusions -- * There is normal left ventricular wall thickness. * The left ventricular wall motion is normal. * The qualitative LV ejection fraction=55% * The LV The right ventricle is moderately dilated. * The right ventricular systolic function is reduced as assessed by tricuspid annular plane systolic excursion (TAPSE) (TAPSE <1.6 cm). * The left atrium is severely dilated. * The right atrium is moderately dilated. * Aortic valve sclerosis moderate, without significant aortic valvular stenosis. * There is moderate mitral regurgitation. * There is moderate to severe tricuspid regurgitation. * Severe pulmonary hypertension is present. * The PA systolic pressure is calculated to be 65 mm Hg. * Compared to the prior study dated 05/18/16 , right ventricular dysfunction and pulmonary hypertension is now present. Assessment & Plan Impression: 77-year-old female 1. Presentation suggestive of left-sided heart failure, likely due to diastolic dysfunction and newly diagnosed right sided heart failure with right ventricular chamber dilatation, RV dysfunction, moderate to severe pulmonary hypertension as estimated by Doppler. With calculated pulmonary artery systolic pressure 65 mmHg. 2. Long-standing history of sarcoidosis with pulmonary and ID involvement 3. History of obstructive sleep apnea, on CPAP Plan : Would appear that her Right-sided heart failure is likely related to her sarcoidosis which is probably worsening. Agree with IV diuretic therapy for now and she will need a daily diuretic dose at discharge. Agree with cautious prednisone, although this may recur fluid retention worse, I think it is necessary terms of treatment of pulmonary sarcoidosis. Looking ahead, she previously followed with the provider with [facility] is no longer with the practice, she needs to reestablish with either the [facility] or [facility]. Her pulse oximetry as documented today is in the low range in the 90-92% range on room air, and as she improves from a volume overload standpoint, will likely test an ambulatory pulse oximetry to see if she would benefit from home oxygen. Continue Coumadin for underlying stroke prophylaxis. Should plan to have the shoulder replacement in the upcoming months. She is aware that we need to delay this which was tentatively scheduled for December because of her cardiac status or tenderness to optimize her. She was agreeable to this. 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
--- NOTE | 2017-11-10 20:00 | NUR ---
A: The patient is alert and oriented x4, denies pain, nausea and shortness of breath. The patient's vital signs are stable on room air, and the patient is in a paced rhythm on the cardiac surgeon. Assessment is unchanged. The patient is sitting up in the chair beside the bed, with her feet resting on the edge of the bed, and is pleasantly conversational. Call tolentino is within reach.
[2017-11-10] MEDS: CEROVITE ADV FORMULA TAB PO SCH (21:34)
[2017-11-10] MEDS: MONTELUKAST SOD 10 MG TAB PO SCH (21:35)
[2017-11-10] MEDS: RANITIDINE HCL 150 MG TAB PO SCH (21:36)
[2017-11-10] MEDS: CHOLECALCIFEROL 1000 INTER.UNIT TAB PO SCH (21:36)
--- NOTE | 2017-11-11 | NUR ---
A: Patient is resting well. No complaints of pain or signs of distress. Remains paced on the teletypesetter monitor. Call tolentino within reach. Remains on 2L NC. Will continue to monitor and assess patient.
[2017-11-11 04:00] VITALS: BP 132/76; PULSE 60; TEMP 36.3; O2SAT 100
[2017-11-11 07:48] VITALS: BP 121/74; PULSE 60; TEMP 36.6; O2SAT 100
[2017-11-11 07:48] LABS: INR 1.5 (0.9-1.1)
[2017-11-11] MEDS: MULTIVITAMIN TAB PO SCH (08:30)
[2017-11-11] MEDS: FERROUS SULFATE 325 MG TAB PO SCH (08:30)
[2017-11-11] MEDS: FUROSEMIDE INJ 40 MG in SYRINGE 0 ML IV SCH (08:30)
[2017-11-11] MEDS: MAGNESIUM CHLORIDE 64MG DELAYED REL TAB PO SCH (08:30)
[2017-11-11] MEDS: ACETAMINOPHEN 325 MG TAB PO PRN (08:30)
[2017-11-11] MEDS: METOPROLOL SUCC 25MG EXT REL TAB PO SCH (08:31)
[2017-11-11] MEDS: CYANOCOBALAMIN 500 MCG TAB (VIT B-12) PO SCH (08:31)
[2017-11-11] MEDS: INSULIN ASPART 100 UNITS/ML 3 ML PEN SC SCH ×2 (08:33→12:23)
[2017-11-11] MEDS ORDERED: AZITHROMYCIN 250 MG TAB PO SCH (09:00)
--- NOTE | 2017-11-11 09:15 | NUR ---
ID: Pt. is AAOx4. VSS on room air. Pt. complains of mild pain in right shoulder, medicated as needed. Pt. lungs are clear and diminished at bases. Paced on the monitor. +1 pitting edema on bilateral LE. Skin tear/scabbed on the right calf and forearm.
--- NOTE | 2017-11-11 09:24 | NUR ---
A: AGREE WITH LIZ MONTESAUTOMATIC OUTSOLE CUTTER AND CHARTING.
[2017-11-11 10:08] LABS: CREATININE 0.94 mg/dl (0.60-1.20); POTASSIUM 3.4 mmol/L (3.5-5.1)
[2017-11-11 10:51] VITALS: BP 120/79; PULSE 64; TEMP 36.6; O2SAT 97
--- NOTE | 2017-11-11 11:45 | NUR ---
A: Pt. is AAOx4 resting comfortably in the chair. VSS on room air. Paced on the monitor. To walk with the MD in the [place] with pulse ox monitoring.
[2017-11-11] MEDS ORDERED: PRED10TA PO (12:23)
[2017-11-11] MEDS ORDERED: LSX/40 PO (12:23)
[2017-11-11] MEDS ORDERED: AZIT-57 PO (12:23)
--- NOTE | 2017-11-11 12:34 | Discharge Instructions ---
Discharge Instructions Date of Service Nov 11, 2017. Admission Reason for Admission: Acute heart failure, bronchitis Discharge Discharge Diagnosis / Problem: Acute left and right heart failure, bronchitis, sarcoidosis Discharge Goals Goal(s): Improve function, Improve disease control Activity Recommendations Activity Limitations: resume your previous activity . Instructions / Follow-Up Instructions / Follow-Up Medications: - LASIX: changed to 40mg every morning for better control of fluid - PREDNISONE: see taper instruction, only taking for 5 more days then stop - ZITHROMAX: antibiotic for 4 more days then stop In summary, you presented with hypoxia (low oxygen) and rapid desaturations ( oxygen dropping) due to heart failure, volume overload echocardiogram (ultrasound of the heart) shows that you have diastolic heart failure on the left side which was old finding, however, you now have pulmonary hypertension and right heart failure pulmonary hypertension is a known complication of long standing sarcoidosis the treatment for both the right heart failure and diastolic heart failure is volume control you were treated with Lasix IV and have put out 6 liters of fluid you will need to continue taking Lasix 40mg every day you need to weigh yourself every morning after you urinate and before breakfast, you mentioned before that your weight has been as low as 179 lbs, today your weight was 178lbs if your weight goes up at all on the Lasix, notify your PCP or Dr. Girard immediately for further instructions follow the fluid restriction outlined below today, you walked all the way around the nurses station without stopping, without oxygen, and your oxygen saturations were 90% when done, so no need for oxygen You also have some bronchitis that is clearing up, complete short course of Prednisone and Zithromax FOLLOW UP - Dr. Mayo in one week, call for appointment - Dr. Girard in 2-3 weeks, call for appointment - [facility] pulmonology, please call to schedule appointment within next 1-2 months for sarcoidosis and pulmonary hypertension If [facility] does not have any openings or they are still short on providers, you can always call [facility]monology for Dr. John, Dr. Walton or Dr. Pollock Call your Primary Care doctor if any of the following symptoms or problems start or get worse: * Shortness of breath or difficulty breathing * Wake up at night short of breath * Chest pain * Cough * Swelling of your hands, feet, or legs * More fatigued or tired with your normal activity * Palpitations - sudden fast heart beats WEIGHT * Weigh yourself every morning after using the bathroom. * Use the same scale. * Wear the same amount of clothing. * Write your weight down on a chart. * Call your Primary Care doctor if you gain more than 2-3 pounds in 1-2 days. MEDICATIONS * Use this discharge instruction sheet for medication instructions. * Take your medications at the time your doctor ordered. * Do not skip a dose of your medicines. * If you miss a dose of medicine, take it as soon as possible, but DO NOT DOUBLE A DOSE. * Read your medicine information when you get home. * Know all of the side effects of your medicine. If in doubt, ask your pharmacist * Call your Primary Care doctor's office if you have any side effects. * Be sure all of your doctors know what medicine and herbs you take (including cold, flu, and herbal medicine). Take the following with you to your follow-up doctor appointments: * Weight Chart * Medication List * List of questions Do not drink excessive alcohol, beer or wine. Current Hospital Diet Patient's current hospital diet: AHA Diet (Heart Healthy), Diabetes Type 2 Diet Discharge Diet Recommended Diet: AHA Diet (Heart Healthy), Diabetes Type 2 Diet Fluid Restriction: 1500 ml (6 cups) Pending Studies Studies pending at discharge: no Laboratory Results Hemoglobin A1c Test 09/28/17 15:55 Range/Units Estimated Average Glucose 123 mg/dl Hemoglobin A1c 5.9 H 4.5-5.6 % Medical Emergencies . Who to Call and When: Call 911 or go to the Emergency Room if: * If at any time you feel your situation is an emergency * You have tightness or pain in your chest that does not go away with rest or Nitroglycerin * You are very short of breath even with rest . Non-Emergent Contact Non-Emergency issues call your: Primary Care Provider, Sheltered Workshop Worker Call Non-Emergent contact if: you have any medication questions . . "Provider Documentation" section prepared by Giovanni Lange. . VTE Core Measure Inpt VTE Proph given/why not?: Warfarin (Coumadin) [place] Drug Monitoring Program Search Results: no issues identified
[2017-11-11 12:40] VITALS: BP 120/79; PULSE 64; TEMP 36.6; O2SAT 97
--- NOTE | 2017-11-11 13:22 | NUR ---
A: Pt. is discharged. Verbalize understanding. All belongs with pt. Pt. calling for ride home. Waiting for transportation.
--- NOTE | 2017-11-11 13:53 | Discharge Summary ---
Discharge Summary Date of Service Nov 11, 2017. Discharge Summary Admission Date: Nov 07, 2017 at 19:47 Discharge Date: Nov 11, 2017 Discharge Disposition: Home Principal Diagnosis: Acute Respiratory Failure with Hypoxia due to Acute R Sided CHF Problems/Secondary Diagnoses: (1) AMI (acute myocardial infarction) Status: Chronic (2) Anticoagulated on Coumadin Status: Chronic (3) Atrial fibrillation Status: Chronic (4) CAD (coronary artery disease) Status: Chronic (5) GERD (gastroesophageal reflux disease) Status: Chronic (6) Hyperlipidemia Status: Chronic (7) ELISEO (obstructive sleep apnea) Status: Chronic (8) Percutaneous transluminal coronary angioplasty status Status: Chronic (9) Sarcoidosis Status: Chronic Immunizations: Have You Had Influenza Vaccine: Yes Influenza Vaccine Date: Aug 19, 2013 History of Tetanus Vaccine?: Yes Tetanus Immunization Date: Jan 17, 2013 History of Pneumococcal: Yes Pneumococcal Date: Jun 10, 2009 History of Hepatitis B Vaccine: No Procedures: (CHEST FOR PE) ANGIO WITH FINDINGS: Tassel Snipper topogram: Left subclavian pacer. Posterior lumbar fusion hardware. Pulmonary vasculature: The study is adequate for assessment of the pulmonary vascular tree. No filling defect within the pulmonary arteries to suggest embolus. Main pulmonary artery is top normal in size. Subtle flattening of the interventricular septum and relative enlargement of the right ventricle. No intracardiac filling defect. Reflux of contrast into the IVC and hepatic veins. Remaining chest: On soft tissue windows, calcified nodule noted in the right lobe of the thyroid. Left subclavian pacer with leads to the right atrium, right ventricular apex, and coronary sinus. Numerous prominent mediastinal and bilateral hilar lymph nodes are stable to slightly increased from prior. Atherosclerosis of the aorta. Multichamber enlargement of the heart with pronounced biatrial enlargement. Coronary artery, aortic valve, mitral annular calcification. No pericardial or pleural effusion. Hyperdense material in the stomach may relate to medication administration. On lung windows, dependent groundglass and reticulation increased from prior. Mosaic attenuation and/or patchy groundglass increased from prior. Mild interlobular septal thickening, which appears smooth. A developing crazy paving pattern may be present. No pulmonary nodules. Calcified granuloma at the superior segment of the right lower lobe. Central airways patent. On bone windows, degenerative changes of the spine. Partially visualized lumbar fusion hardware. Degenerative changes of the bilateral glenohumeral joints. IMPRESSION: 1. No evidence of pulmonary embolus. 2. Prominent mosaic attenuation/patchy groundglass opacities with mild interlobular septal thickening. Although this could represent small airways disease or be vascular in etiology at the patient has a history of chronic thromboembolic disease, this could represent volume overload with developing pulmonary edema in the setting of cardiomegaly. 3. Flattening of the interventricular septum and reflux of contrast into the hepatic veins suggest elevated right heart pressure and right heart strain. 4. Persistent mediastinal and hilar lymphadenopathy. This is nonspecific and can be seen in the setting of sarcoidosis among other etiologies. This is stable to minimally progressed since 2006. ECHOCARDIOGRAM: There is normal left ventricular wall thickness. * The left ventricular wall motion is normal. * The qualitative LV ejection fraction=55% * The LV The right ventricle is moderately dilated. * The right ventricular systolic function is reduced as assessed by tricuspid annular plane systolic excursion (TAPSE) (TAPSE <1.6 cm). * The left atrium is severely dilated. * The right atrium is moderately dilated. * Aortic valve sclerosis moderate, without significant aortic valvular stenosis. * There is moderate mitral regurgitation. * There is moderate to severe tricuspid regurgitation. * Severe pulmonary hypertension is present. * The PA systolic pressure is calculated to be 65 mm Hg. * Compared to the prior study dated 05/18/16 , right ventricular dysfunction and pulmonary hypertension is now present. Consultations: 1. Cardiology Medication Reconciliation New Medications: Furosemide (Lasix) 40 Mg Tab 1 TAB PO DAILY for 30 Days, #30 TAB 1 Refill Prednisone (Prednisone) 10 Mg Tab 10 MG PO UD for 5 Days, #9 TAB on 11/12/17, take 30mg then on 11/13 and 11/14 take 20mg then on 11/15 and 11/16 take 10mg Azithromycin (Azithromycin) 250 Mg Tab 250 MG PO QAM, #4 TAB 0 Refills Continued Medications: Aspirin (Aspirin Low Dose) 81 Mg Tab 81 MG PO 3XWK TAKE THIS MEDICATION EVERY SUNDAY,SUNDAY AND SUNDAY Cholecalciferol (Vitamin D 1000 Unit) 1,000 Unit Cap 1000 INTER.UNIT PO QPM, CAP Cyanocobalamin (Vitamin B12) 1,000 Mcg Tab 1000 MCG PO QPM Ferrous Sulfate (Ferrous Sulfate) 325 Mg Tab 325 MG PO QAM Fluticasone Propionate (Fluticasone Propionate) 120 Sprays/6000 Mcg [place] 2 SPRAYS [place] DAILY PRN for Allergy Symptoms Folic Acid (Folvite) 1 Mg Tab 1 MG PO QAM, TAB Ipratropium-Albuterol (Combivent Respimat) 1 Aer Aer 1 PUFF INH UD PRN for Shortness of Breath, INH Magnesium Chloride (Slow-Mag Tab) 64 Mg Tabcr 64 MG PO BID, TAB Metformin HCl (Metformin HCl) 500 Mg Tab 500 MG PO BID Metoprolol Succinate (Metoprolol Succinate ER) 25 Mg Tabcr 37.5 MG PO BID Montelukast Sod (Montelukast Sodium) 10 Mg Tab 10 MG PO HS Multiple Vitamin (Multi Vitamin Daily) 1 Tab Tab 1 TAB PO QAM Nitroglycerin (Nitrostat) 0.4 Mg Tab 0.4 MG UT UD PRN for Chest Pain, BTL PLACE ONE TABLET UNDER THE TONGUE EVERY 5 MINUTES FOR UP TO 3 DOSES IF NEEDED FOR CHEST PAIN. Ocuvite Preservision (Ocuvite Preservision) 1 Tab Tab 1 TAB PO BID, TAB Oxycodone/Acetaminophen 5MG/325MG (Percocet 5MG/325MG) Tab 1-2 TABS PO Q4H PRN for Pain, TAB PAIN Probiotic Product (Probiotic) 1 Cap Cap 2 CAP PO QPM Ranitidine HCl (Ranitidine HCl) 150 Mg Tab 150 MG PO QPM Tiotropium [place] (Spiriva Handihaler) 30 Puff/540 Mcg Aerp 1 CAP INH PRN, INHALER Vitamin E (Vitamin E 400 Iu) Unknown Strength Cap 1 TAB PO QPM, CAP Warfarin Sodium (Warfarin Sodium) 4 Mg Tab 4 MG PO 5XWK TAKE 4 MG EVERY SUNDAY,SUNDAY,SUNDAY,SUNDAY AND SUNDAY OR OTHERWISE DIRECTED TO TAKE BY ANTICOAGULATION CLINIC/MD. Warfarin Sodium (Warfarin Sodium) 4 Mg Tab 2 MG PO 2XWK, TAB TAKE HALF A TABLET (2 MG) EVERY SUNDAY AND SUNDAY OR OTHERWISE DIRECTED TO TAKE BY ANTICOAGULATION CLINIC/MD Discontinued Medications: Cephalexin Monohydrate (Keflex) 500 Mg Cap 500 MG PO QAM, CAP Furosemide (Furosemide) 20 Mg Tab 20 MG PO 3XWK TAKE THIS MEDICATION EVERY SUNDAY,SUNDAY AND SUNDAY Discharge Exam Review of Systems: Constitutional: No fever, No chills ENT: No nasal symptoms, No sore throat Respiratory: + dyspnea on exertion (minimal), No cough, No dyspnea at rest Cardiovascular: No chest pain Abdomen: No pain, No nausea, No vomiting, No diarrhea, No constipation Musculoskeletal: + swelling (b/l lower extremities - improving), No calf pain Genitourinary - Female: No dysuria Hematologic / Lymphatic: No abnormal bleeding/bruising Physical Exam: General Appearance: WD/WN, no apparent distress Eyes: sclerae normal ENT: hearing grossly normal Neck: supple, no JVD, trachea midline Respiratory/Chest: no respiratory distress, no accessory muscle use, + crackles (bases b/l) Cardiovascular: regular rate, rhythm Abdomen / GI: normal bowel sounds, non tender, soft Extremities: no calf tenderness, no pedal edema Neurologic/Psychiatric: alert, oriented x 3 Skin: normal color, warm/dry Hospital Course ADMISSION: The patient is a 77-year-old female who presents to the emergency department with complaint of shortness of breath began about 6 days prior to arrival. She has been having some nasal drainage, intermittent precordial chest tightness that occurs with exertion and with her cough, and lower extremity edema she went to [facility] for assessment today, was found to have a pulse ox of 72%, was given 80 mg of Depo-Medrol intramuscularly, and then sent to the emergency department for assessment. EMS reports that her oxygen saturation improved 100% on 3 L. The patient reports a history of sarcoidosis, COPD, and sleep apnea. She does not use an inhaler very often, or CPAP. She takes warfarin for atrial fibrillation, and reports getting laboratories done on a regular basis.. HOSPITAL COURSE: Ms. Hendrix was admitted for Acute Respiratory Failure with Hypoxia 2/2 Acute R Sided HF/Diastolic CHF. It appears her sarcoidosis may be contributing to her worsening of symptoms. She is currently a negative 5.6L since admission. Update echocardiogram reveals EF 55% with dilated R atrium, RV dysfunction, and pulmonary HTN. [facility] Cardiology followed for assistance with management. During admission she would desaturation into low 80s with ambulation and would appear cyanotic. With diuresis this has resolved and a two- step performed and no supplemental O2 will be needed. She will need to be re- established with pulmonology as her prior doctor retired and follows [facility]. She may have had a mild COPD exacerbation on admission however seemed to improve more from diuresis but will complete a short steroid taper. Upon admission, her INR was supratherapeutic and currently subtherapeutic. This will need to be continually monitor for stabilization. Total Time Spent: Greater than 30 minutes This includes examination of the patient, discharge planning, medication reconciliation, and communication with other providers. Discharge Instructions Please refer to the electronic Patient Visit Report (Discharge Instructions) for additional information. Additional Copies To Farheen Mayo M.D.
[2018-01-10] MEDS ORDERED: CYAN100020 PO (10:05)
[2018-01-10] MEDS ORDERED: MULT-190 PO (11:48)
[2018-01-10] MEDS ORDERED: OXYC-57 PO (12:11)
[2018-01-10] MEDS ORDERED: SLWMEC PO (14:47)
[2018-01-10] MEDS ORDERED: FLNIN/ NAE (15:46)
[2018-01-10] MEDS ORDERED: GLC500 PO (15:46)
[2018-01-10] MEDS ORDERED: ASPI1TAB48 PO (16:00)
[2018-01-10] MEDS ORDERED: WARF-283 PO ×2 (16:00→16:02)
[2018-01-10] MEDS ORDERED: TPRSR/25 PO (16:02)
[2018-01-10] MEDS ORDERED: SNG10 PO (16:03)
[2018-01-10] MEDS ORDERED: RANI150T2 PO (16:03)
[2018-01-10] MEDS ORDERED: FERR1TAB62 PO (16:07)
[2018-01-10] MEDS ORDERED: CHOL100027 PO (16:07)
[2018-01-10] MEDS ORDERED: NTRGSL/4 UT (16:11)
[2018-04-30] MEDS ORDERED: OXYC1CAP5 PO (09:20)
[2018-04-30] MEDS ORDERED: FERR1TAB23 PO (09:20)
[2018-04-30] MEDS ORDERED: FOLI1TAB8 PO (09:20)
[2018-04-30] MEDS ORDERED: MULTCAP33 PO (09:20)
[2018-04-30] MEDS ORDERED: OXYC-643 PO (09:20)
[2018-04-30] MEDS ORDERED: GLC/500 PO (09:20)
[2018-04-30] MEDS ORDERED: FRS/40 PO (09:20)
[2018-04-30] MEDS ORDERED: TYLOTC325 PO (09:20)
[2018-04-30] MEDS ORDERED: ENOX80IN SQ (09:22)
[2018-04-30] MEDS ORDERED: AMOX875T PO (09:49)
[2018-05-17] MEDS ORDERED: CIPR1TAB11 PO (14:39)
== END 2017-11-11 14:30 | disposition home or self-care (01) | DRG 291 ==
LOC: EDBD 17:05 → C.EDA 17:07 → C.MED 19:47 → ENRESERV 19:55
PROVIDERS: ADMIT Hospitalist; ATTEND Internal Medicine
DX: I11.0 Hypertensive heart disease with heart failure (principal); I50.31 Acute diastolic (congestive) heart failure; J96.01 Acute respiratory failure with hypoxia; J44.1 Chronic obstructive pulmonary disease with (acute) exacerbation; I25.2 Old myocardial infarction; I25.10 Atherosclerotic heart disease of native coronary artery without angina pectoris; M51.86 Other intervertebral disc disorders, lumbar region; Z86.14 Personal history of Methicillin resistant Staphylococcus aureus infection; I48.0 Paroxysmal atrial fibrillation; G47.33 Obstructive sleep apnea (adult) (pediatric); Z95.818 Presence of other cardiac implants and grafts; Z83.3 Family history of diabetes mellitus; Z79.82 Long term (current) use of aspirin; E11.9 Type 2 diabetes mellitus without complications; Z79.84 Long term (current) use of oral hypoglycemic drugs; Z79.01 Long term (current) use of anticoagulants; I48.2 Chronic atrial fibrillation; K21.9 Gastro-esophageal reflux disease without esophagitis; D86.0 Sarcoidosis of lung; Z96.659 Presence of unspecified artificial knee joint; E53.8 Deficiency of other specified B group vitamins; I27.20 Pulmonary hypertension, unspecified; S80.922A Unspecified superficial injury of left lower leg, initial encounter; X58.XXXA Exposure to other specified factors, initial encounter; Y92.019 Unspecified place in single-family (private) house as the place of occurrence of the external cause

== ENCOUNTER → 2017-11-07 | Outpatient (CLI) | payer OTHER ==
[~2017-11-07] MED LIST changes: +AMOX875T PO; +AZIT-57 PO; +CIPR1TAB11 PO; +ENOX80IN SQ; +FERR1TAB23 PO; +FRS/40 PO; +GLC/500 PO; +LSX/40 PO; +MISCCHW PO; +MULT1CHW37 PO; +MULTCAP33 PO; +OXYC-609 PO; +OXYC-643 PO; +OXYC1CAP5 PO; +PRED10TA PO; +TYLOTC325 PO
--- NOTE | 2017-11-07 14:43 | DIAGNOSTIC IMAGING REPORT ---
CHEST 2 VIEWS ROUTINE CLINICAL HISTORY: SOB dyspnea COMPARISON STUDY: 09/28/2017 FINDINGS: Chronic changes as well as postoperative changes described previously are considered stable. Diaphragms smooth. Slight bronchovascular prominence considered chronic. No focal infiltrative process. IMPRESSION: Stable chronic and postoperative change. No acute process. The above report was generated using voice recognition software. It may contain grammatical, syntax or spelling errors. Electronically signed by: iLon Means M.D. 11/07/2017 2:42 PM Dictated Date/Time: 11/07/2017 2:41 PM
== END | disposition home or self-care (01) ==
LOC: C.RADPV 14:26
PROVIDERS: ATTEND Family Medicine
DX: R06.02 Shortness of breath (principal)

== ENCOUNTER 2018-01-10 17:20 | Emergency (ER) | payer OTHER ==
[~2018-01-10] VITALS: Ht 154.9 cm; Wt 80.0 kg
[~2018-01-10 17:20] MED LIST changes: +ASPI1TAB48 PO; +AZIT-57 PO; -CEPH500C2 PO; +CHOL100027 PO; +CYAN100020 PO; +FERR1TAB62 PO; +FLNIN/ NAE; +GLC500 PO; +LSX/40 PO; -LSX20 PO; +MULT-190 PO; +NTRGSL/4 UT; +OXYC-57 PO; +RANI150T2 PO; +SLWMEC PO; +SNG10 PO; +TPRSR/25 PO; +WARF-283 PO
[2018-01-10 17:28] VITALS: TEMP 36.7; Ht 154.9 cm; Wt 80.0 kg
--- NOTE | 2018-01-10 17:53 | EMERGENCY ROOM VISIT NOTE ---
History Report prepared by Lissa: Epifanio Langford Under the Supervision of: Dr. Ron Veras M.D. First contact with patient: 17:35 Chief Complaint: ABNORMAL LABS Stated Complaint: CALCIUM ELEVATED-PHYSICIAN REFERRED History of Present Illness The patient is a 77 year old female who presents to the Emergency Room with complaints of a constant, elevated calcium level beginning earlier today. The patient states she was evaluated by Dr. Girard, Cardiology for a reevaluation. She reports she follows with him because of her history of an GA, a-fib, and a pace maker. The patient notes she is currently not experiencing pain; she is just tired. 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 The patient reports she is able to do activities such as bending and lifting. She notes she has occasional dizziness while bending to pick something up. The patient states she has a history of a stiff neck, so she wears a foam neck brace for support. She reports she is currently on Coumadin and Lasix. The patient denies chest pain, shortness of breath, nausea, vomiting , diarrhea, abdominal pain, and constipation. She notes her INR was not checked earlier. Source of History: patient Onset: earlier today Position: other (global) Quality: other (eleavted Ca2+ levels) Timing: constant Associated Symptoms: No chest pain, No SOB, No nausea, No vomiting, No abdominal pain, No diarrhea Note: Denies: constipation Review of Systems See HPI for pertinent positives and negatives. A total of ten systems were reviewed and were otherwise negative. Past Medical & Surgical Medical Problems: (1) Acute CHF (2) AMI (acute myocardial infarction) (3) Anticoagulated on Coumadin (4) Arm laceration (5) Atrial fibrillation (6) Atrial fibrillation with rapid ventricular response (7) Benign hypertension (8) CAD (coronary artery disease) (9) Cellulitis (10) Cellulitis of left lower extremity (11) Cellulitis of left lower extremity without foot (12) Cellulitis of leg, right (13) GERD (gastroesophageal reflux disease) (14) Hyperlipidemia (15) Hypoxia (16) Knee hemarthrosis, left (17) Laceration of lower extremity (18) Lumbar disc disease (19) Lumbar disc disease (20) MRSA (21) ELISEO (obstructive sleep apnea) (22) Pain of left lower leg (23) Right-sided epistaxis (24) rotator cuff surgery (25) Sarcoidosis (26) Shoulder sprain (27) Skin tear of forearm without complication (28) Skin tear of lower leg without complication (29) Spinal stenosis (30) Spinal stenosis (31) Spinal stenosis (32) Supratherapeutic INR (33) Supratherapeutic INR Surgical Problems: (1) Percutaneous transluminal coronary angioplasty status (2) Postoperative state (3) Total knee replacement status Social History Problems: (1) Laceration of lower extremity Family History Cancer Diabetes mellitus FHx: heart disease FHx: hypertension Lung disease Social History Smoking Status: Never Smoker Alcohol Use: none Drug Use: none Marital Status: Housing Status: lives alone Occupation Status: retired Current/Historical Medications Scheduled Aspirin (Aspirin Low Dose), 81 MG PO 3XWK Cholecalciferol (Vitamin D 1000 Unit), 1,000 INTER.UNIT PO QPM Cyanocobalamin (Vitamin B12), 1,000 MCG PO QAM Ferrous Sulfate (Ferrous Sulfate), 325 MG PO QAM Folic Acid (Folvite), 1 MG PO QAM Furosemide (Lasix), 40 MG PO 2XWK Magnesium Chloride (Slow-Mag Tab), 64 MG PO BID Metformin HCl (Metformin HCl), 500 MG PO BID Metoprolol Succinate (Metoprolol Succinate ER), 37.5 MG PO BID Montelukast Sod (Montelukast Sodium), 10 MG PO HS Multiple Vitamins W/ Minerals (Multi Adult Gummies), 2 TABS PO QAM Ocuvite Preservision (Ocuvite Preservision), 1 TAB PO BID Probiotic Product (Acidophilus), 2 TABS PO QPM Ranitidine HCl (Ranitidine HCl), 150 MG PO QPM Warfarin Sodium (Warfarin Sodium), 4 MG PO 5XWK Warfarin Sodium (Warfarin Sodium), 2 MG PO 2XWK Scheduled PRN Fluticasone Propionate (Fluticasone Propionate), 2 SPRAYS [place] DAILY PRN for Allergy Symptoms Ipratropium-Albuterol (Combivent Respimat), 1 PUFF INH UD PRN for Shortness of Breath Nitroglycerin (Nitrostat), 0.4 MG UT UD PRN for Chest Pain Oxycodone HCl (Oxycodone HCl), 15 MG PO Q6H PRN for Pain Oxycodone/Acetaminophen 5MG/325MG (Percocet 5MG/325MG), 1-2 TABS PO Q4H PRN for Pain Allergies Coded Allergies: Adhesives (Verified Allergy, Unknown, RASH, 11/07/17) Morphine (Verified Adverse Reaction, Unknown, SENSITIVITY, 11/07/17) Physical Exam Vital Signs Date Time Temp Pulse Resp B/P (MAP) Pulse Ox O2 Delivery O2 Flow Rate FiO2 01/10/18 22:38 64 16 126/89 98 01/10/18 21:54 62 20 142/72 94 Room Air 01/10/18 19:55 60 20 151/81 94 Room Air 01/10/18 18:57 63 01/10/18 18:48 96 Room Air 01/10/18 18:48 65 20 135/91 97 Room Air 01/10/18 17:28 36.7 83 20 137/85 94 Room Air Physical Exam GENERAL: Awake, alert, well-appearing, in no distress HENT: Normocephalic, atraumatic. Oropharynx unremarkable. EYES: Normal conjunctiva. Sclera non-icteric. NECK: Supple. No nuchal rigidity. FROM. No JVD. RESPIRATORY: Clear to auscultation. CARDIAC: Regular rate, normal rhythm. Extremities warm and well perfused. Pulses equal. ABDOMEN: Soft, non-distended. No tenderness to palpation. No rebound or guarding. No masses. RECTAL: Deferred. MUSCULOSKELETAL: Chest examination reveals no tenderness. The back is symmetrical on inspection without obvious abnormality. There is no CVA tenderness to palpation. No joint edema. LOWER EXTREMITIES: Calves are equal size bilaterally and non-tender. No edema. No discoloration. NEURO: Normal sensorium. No sensory or motor deficits noted. Normal reflexes. SKIN: No rash or jaundice noted. Medical Decision & Procedures ER Provider Diagnostic Interpretation: X-ray: Per my interpretation, radiologist review. CHEST ONE VIEW PORTABLE CLINICAL HISTORY: 77 years-old Female presenting with CHEST PAIN. TECHNIQUE: Portable upright AP view of the chest was obtained. COMPARISON: 11/07/2017. FINDINGS: Left subclavian pacer with leads to the right atrium, coronary sinus, and right ventricular apex. Atherosclerosis of aortic arch. Cardiac silhouette mildly enlarged. Elevation of the left hemidiaphragm unchanged. No new focal opacity. Trace left pleural effusion may be present. No pneumothorax. Right lung clear. Degenerative changes of the shoulders and spine. Partially visualized posterior thoracolumbar fusion hardware. IMPRESSION: 1. Cardiomegaly. No convincing evidence of acute cardiopulmonary disease. Electronically signed by: Husam Michelle M.D. 01/10/2018 6:54 PM Dictated Date/Time: 01/10/2018 6:52 PM Laboratory Results 01/10/18 18:30 Red Blood Count 4.04, Mean Corpuscular Volume 101.2, Mean Corpuscular Hemoglobin 33.9, Mean Corpuscular Hemoglobin Concent 33.5, Mean Platelet Volume 11.1, Neutrophils (%) (Auto) 66.3, Lymphocytes (%) (Auto) 15.1, Monocytes (%) ( Auto) 14.1, Eosinophils (%) (Auto) 3.9, Basophils (%) (Auto) 0.4, Neutrophils # (Auto) 3.44, Lymphocytes # (Auto) 0.78, Monocytes # (Auto) 0.73, Eosinophils # ( Auto) 0.20, Basophils # (Auto) 0.02 01/10/18 21:35 Test 01/10/18 18:30 01/10/18 19:02 01/10/18 20:48 01/10/18 21:35 White Blood Count 5.18 K/uL (4.8-10.8) Red Blood Count 4.04 M/uL (4.2-5.4) Hemoglobin 13.7 g/dL (12.0-16.0) Hematocrit 40.9 % (37-47) Mean Corpuscular Volume 101.2 fL (80-100) Mean Corpuscular Hemoglobin 33.9 pg (25-34) Mean Corpuscular Hemoglobin Concent 33.5 g/dl (32-36) Platelet Count 211 K/uL (130-400) Mean Platelet Volume 11.1 fL (7.4-10.4) Neutrophils (%) (Auto) 66.3 % Lymphocytes (%) (Auto) 15.1 % Monocytes (%) (Auto) 14.1 % Eosinophils (%) (Auto) 3.9 % Basophils (%) (Auto) 0.4 % Neutrophils # (Auto) 3.44 K/uL (1.4-6.5) Lymphocytes # (Auto) 0.78 K/uL (1.2-3.4) Monocytes # (Auto) 0.73 K/uL (0.11-0.59) Eosinophils # (Auto) 0.20 K/uL (0-0.5) Basophils # (Auto) 0.02 K/uL (0-0.2) RDW Standard Deviation 52.9 fL (36.4-46.3) RDW Coefficient of Variation 14.2 % (11.5-14.5) Immature Granulocyte % (Auto) 0.2 % Immature Granulocyte # (Auto) 0.01 K/uL (0.00-0.02) Prothrombin Time 54.2 SECONDS (9.0-12.0) Prothromb Time International Ratio 5.3 (0.9-1.1) Magnesium Level 1.7 mg/dl (1.8-2.4) Total Bilirubin 0.7 mg/dl (0.2-1) Direct Bilirubin 0.3 mg/dl (0-0.2) Aspartate Amino Transf (AST/SGOT) 25 U/L (15-37) Alanine Aminotransferase (ALT/SGPT) 16 U/L (12-78) Alkaline Phosphatase 104 U/L (45-117) Troponin I < 0.015 ng/ml (0-0.045) Total Protein 7.8 gm/dl (6.4-8.2) Albumin 3.5 gm/dl (3.4-5.0) Lipase 143 U/L (73-393) 25-Hydroxy Vitamin D Total 42.5 ng/ml (30-100) Parathyroid Hormone (Intact) 8.7 pg/mL (18.4-80.1) Anion Gap 8.0 mmol/L (3-11) Est Creatinine Clear Calc Drug Dose 49.8 ml/min Estimated GFR () 70.1 Estimated GFR (Non- 60.5 BUN/Creatinine Ratio 22.1 (10-20) Calcium Level 12.3 mg/dl (8.5-10.1) Laboratory results reviewed by me Medications Administered Medications (Trade) Dose Ordered Sig/Rain Route Start Time Stop Time Status Last Admin Dose Admin Sodium Chloride 500 ml @ 999 mls/hr Q31M STAT IV 01/10/18 18:06 01/10/18 18:36 DC 01/10/18 18:47 999 MLS/HR Sodium Chloride 500 ml @ 999 mls/hr Q31M STAT IV 01/10/18 19:55 01/10/18 20:25 DC 01/10/18 20:04 999 MLS/HR Acetaminophen (Tylenol Tab) 1,500 mg STK-MED ONCE PO 01/10/18 20:35 01/10/18 20:36 DC 01/10/18 20:39 1,500 MG Magnesium Oxide (Mag-Ox Tab) 400 mg NOW STAT PO 01/10/18 21:36 01/10/18 21:38 DC 01/10/18 21:53 400 MG Potassium Chloride (Klor-Con M10) 40 meq NOW STAT PO 01/10/18 21:36 01/10/18 21:38 DC 01/10/18 21:53 40 MEQ ECG Per My Interpretation Indication: other (Abnormal labs) Rate (beats per minute): 62 Rhythm: other (Ventricular paced) Findings: no acute ischemic change, no ectopy ED Course 1739: The patient was evaluated in room C05. A complete history and physical exam was performed. 2017: I reevaluated the patient. She is feeling better. I discussed her current exam findings. Her Ca2+ level will be rechecked after she gets more fluids. Medical Decision I reviewed the patient's past medical history, medications, and the nursing notes as described above. Differential diagnoses include: Sarcoidosis, ACS, PNA, malignancy, hyperparathyroidism, dehydration, and electrolyte abnormality The patient is a 77-year-old woman with a past medical history of sarcoidosis, right-sided and diastolic HF, Afib on coumadin since emergency department after having outpatient labs showing elevated calcium to 13.1 setting of feeling generalized fatigue over the past week per HPI. On arrival, the patient is in no acute distress, afebrile with stable vital signs. Calcium here is 12.6 with albumin of 3.5 correcting to 13.0. PTH is low 8.0 suggesting non-parathyroid etiology. Cr. 1.03 with GFR 52 marginally decreased from recent with BUN/Cr > 20 suggesting pre-renal component. Given the patient otherwise is relatively well-appearing reasonable to hydrate here and have patient f/u with her providers for further monitoring and management of calcium as well as her sarcoidosis. Of note, the INR was elevated today to 5.1 and she was instructed to hold her next dose and contact her coagulation clinic for repeat testing and further instructions. Repeat chemistry after 1L IVF with improvement in GFR to 60.5 and calcium to 12.3. Findings and plan for follow-up reviewed with patient. Patient agreeable and d/c'd per discharge instructions. Medication Reconcilliation Current Medication List: was personally reviewed by me Blood Pressure Screening Patient's blood pressure: Elevated blood pressure Blood pressure disposition: Referred to PCP Impression Primary Impression: Hypercalcemia Scribe Attestation The scribe's documentation has been prepared under my direction and personally reviewed by me in its entirety. I confirm that the note above accurately reflects all work, treatment, procedures, and medical decision making performed by me. Departure Information Dispostion Home / Self-Care Referrals Farheen Mayo M.D. (PCP) Patient Instructions Hypercalcemia Jaleel, My [facility] Additional Instructions Please follow up with your primary care physician and sarcoidosis specialist in the next 1-3 days for re-evaluation and to repeat your calcium level. Your were found to have an elevated calcium level, which may be related to your history of sarcoidosis as well as mild dehydration. Your Coumadin level (INR) was also elevated today at 5.1. You should skip your next dose and call your coagulation clinic to arrange repeat testing and for further instructions on your Coumadin dose. Otherwise, your exam, EKG, chest xray, and lab results did not show signs of an emergent condition at this time. You have additional lab tests (PTHrp and Vitamin D levels) pending that were sent to an outside lab to help with further evaluation of your elevated calcium. Avoid any supplements that contain calcium at this time. Ensure hydration. Return to the emergency department for worsening symptoms as described in the accompanying instructions.
[2018-01-10] MEDS ORDERED: SODIUM CHLORIDE 0.9% 500ML 500 ML IV STA ×2 (18:06→19:55)
[2018-01-10] MEDS ORDERED: FRS/40 PO (18:36)
[2018-01-10] MEDS ORDERED: OXYC-609 PO (18:36)
[2018-01-10] MEDS ORDERED: MULT1CHW37 PO (18:39)
[2018-01-10] MEDS ORDERED: MISCCHW PO (18:39)
[2018-01-10 18:40] LABS: BASO % 0.4 %; BASO ABS # 0.02 K/uL (0-0.2); EOS % 3.9 %; HEMATOCRIT 40.9 % (37-47); HEMOGLOBIN 13.7 g/dL (12.0-16.0); IG# 0.01 K/uL (0.00-0.02); LYMPH % 15.1 %; LYMPH ABS # 0.78 K/uL (1.2-3.4); MEAN CELL VOLUME 101.2 fL (80-100); MEAN CORPUSCULAR HEMOGLOBIN 33.9 pg (25-34); MEAN CORPUSCULAR HGB CONC 33.5 g/dl (32-36); MEAN PLATELET VOLUME 11.1 fL (7.4-10.4); MONO % 14.1 %; MONO ABS # 0.73 K/uL (0.11-0.59); NEUT % 66.3 %; NEUT ABS # 3.44 K/uL (1.4-6.5); PLATELET COUNT 211 K/uL (130-400); RED CELL DISTRIBUTION WIDTH CV 14.2 % (11.5-14.5); RED CELL DISTRIBUTION WIDTH SD 52.9 fL (36.4-46.3); WHITE BLOOD COUNT 5.18 K/uL (4.8-10.8)
[2018-01-10 18:48] VITALS: O2SAT 96
--- NOTE | 2018-01-10 18:55 | DIAGNOSTIC IMAGING REPORT ---
CHEST ONE VIEW PORTABLE CLINICAL HISTORY: 77 years-old Female presenting with CHEST PAIN. TECHNIQUE: Portable upright AP view of the chest was obtained. COMPARISON: 11/07/2017. FINDINGS: Left subclavian pacer with leads to the right atrium, coronary sinus, and right ventricular apex. Atherosclerosis of aortic arch. Cardiac silhouette mildly enlarged. Elevation of the left hemidiaphragm unchanged. No new focal opacity. Trace left pleural effusion may be present. No pneumothorax. Right lung clear. Degenerative changes of the shoulders and spine. Partially visualized posterior thoracolumbar fusion hardware. IMPRESSION: 1. Cardiomegaly. No convincing evidence of acute cardiopulmonary disease. Electronically signed by: Huasm Michelle M.D. 01/10/2018 6:54 PM Dictated Date/Time: 01/10/2018 6:52 PM
[2018-01-10 19:12] LABS: ALBUMIN 3.5 gm/dl (3.4-5.0); ALKALINE PHOSPHATASE 104 U/L (45-117); ALT/SGPT 16 U/L (12-78); AST/SGOT 25 U/L (15-37); BLOOD UREA NITROGEN 22 mg/dl (7-18); CALCIUM 12.6 mg/dl (8.5-10.1); CARBON DIOXIDE 29 mmol/L (21-32); CREATININE 1.03 mg/dl (0.60-1.20); GLUCOSE 127 mg/dl (70-99); LIPASE 143 U/L (73-393); POTASSIUM 3.3 mmol/L (3.5-5.1); SODIUM 139 mmol/L (136-145); TOTAL PROTEIN 7.8 gm/dl (6.4-8.2)
[2018-01-10 19:18] LABS: INR 5.3 (0.9-1.1)
[2018-01-10] MEDS ORDERED: IPRA1AER2 INH (19:51)
[2018-01-10] MEDS ORDERED: OXYCODONE/ACETAMINOPHEN 5-325 TAB PO ONE (20:15)
[2018-01-10] MEDS ORDERED: ACETAMINOPHEN 500 MG TAB PO ONE (20:35)
[2018-01-10] MEDS ORDERED: MAGNESIUM OXIDE 400 MG TAB PO STA (21:36)
[2018-01-10] MEDS ORDERED: POTASSIUM CHLORIDE 10 MEQ TABCR PO STA (21:36)
[2018-01-10 22:16] LABS: CALCIUM 12.3 mg/dl (8.5-10.1); CREATININE 0.92 mg/dl (0.60-1.20); POTASSIUM 3.4 mmol/L (3.5-5.1)
[2018-01-10 22:38] VITALS: BP 126/89; PULSE 64; O2SAT 98
[2018-01-10] MEDS ORDERED: FOLI1TAB8 PO (23:31)
== END 2018-01-10 22:39 | disposition home or self-care (01) ==
LOC: C.EDB 17:22 → C.EDC 22:39
DX: E83.52 Hypercalcemia (principal); I48.91 Unspecified atrial fibrillation; I11.0 Hypertensive heart disease with heart failure; I50.30 Unspecified diastolic (congestive) heart failure; D86.9 Sarcoidosis, unspecified; I25.10 Atherosclerotic heart disease of native coronary artery without angina pectoris; K21.9 Gastro-esophageal reflux disease without esophagitis; E78.5 Hyperlipidemia, unspecified; G47.33 Obstructive sleep apnea (adult) (pediatric); I25.2 Old myocardial infarction; Z95.0 Presence of cardiac pacemaker; Z79.01 Long term (current) use of anticoagulants; Z79.82 Long term (current) use of aspirin; Z79.84 Long term (current) use of oral hypoglycemic drugs; Z88.6 Allergy status to analgesic agent; Z91.048 Other nonmedicinal substance allergy status; Z80.9 Family history of malignant neoplasm, unspecified; Z83.3 Family history of diabetes mellitus; Z82.49 Family history of ischemic heart disease and other diseases of the circulatory system

== ENCOUNTER → 2018-01-14 | Outpatient (CLI) | payer OTHER ==
[~2018-01-14] MED LIST changes: -AZIT-57 PO; +FOLI1TAB8 PO; +FRS/40 PO; +IPRA1AER2 INH; -LSX/40 PO; -MISCCAP80 PO; +MISCCHW PO; -MULT-884 PO; +MULT1CHW37 PO; +OXYC-609 PO; -SPRIN/30 INH; -VITA400C3 PO
[2018-01-14 18:40] LABS: BLOOD UREA NITROGEN 24 mg/dl (7-18); CALCIUM 12.3 mg/dl (8.5-10.1); CARBON DIOXIDE 30 mmol/L (21-32); CREATININE 1.25 mg/dl (0.60-1.20); GLUCOSE 106 mg/dl (70-99); POTASSIUM 3.8 mmol/L (3.5-5.1); SODIUM 136 mmol/L (136-145)
[2018-01-15 05:55] LABS: HEMOGLOBIN A1C 6.1 % (4.5-5.6)
== END | disposition home or self-care (01) ==
LOC: C.LABPVFM 11:19
PROVIDERS: ATTEND Family Medicine
DX: I10 Essential (primary) hypertension (principal); E78.5 Hyperlipidemia, unspecified; L81.9 Disorder of pigmentation, unspecified; E11.21 Type 2 diabetes mellitus with diabetic nephropathy; L03.90 Cellulitis, unspecified; E83.42 Hypomagnesemia; S16.1XXA Strain of muscle, fascia and tendon at neck level, initial encounter; X58.XXXA Exposure to other specified factors, initial encounter

== ENCOUNTER → 2018-01-18 | Outpatient (CLI) | payer OTHER ==
--- NOTE | 2018-01-18 11:22 | DIAGNOSTIC IMAGING REPORT ---
SNIFF TEST CLINICAL HISTORY: RT HEMIDIAPHRAGM ELEVATION COMPARISON STUDY: Chest 01/10/2018. FINDINGS: Total fluoroscopy time was 0.3 minutes. A cine loop of 53 images was submitted. There is again noted and elevated right hemidiaphragm. However, there is some measure movement of the right and left hemidiaphragms. However, the right hemidiaphragm demonstrates diminished movement in comparison to the left. Left-sided dual-chamber pacemaker. Posterior fusion within the lumbar spine IMPRESSION: Elevated right hemidiaphragm demonstrating diminished but symmetric movement in comparison to the left. Electronically signed by: Gallo Johansen M.D. 01/18/2018 11:21 AM Dictated Date/Time: 01/18/2018 11:18 AM
== END | disposition home or self-care (01) ==
LOC: C.RAD 10:53
PROVIDERS: ATTEND Internal Medicine Pulmonary Disease
DX: J98.6 Disorders of diaphragm (principal); R06.00 Dyspnea, unspecified

== ENCOUNTER 2018-02-03 19:53 | Emergency (ER) | payer OTHER ==
[~2018-02-03] VITALS: Ht 154.9 cm; Wt 79.6 kg
[2018-02-03 20:00] VITALS: Ht 154.9 cm; Wt 79.6 kg
--- NOTE | 2018-02-03 20:13 | EMERGENCY ROOM VISIT NOTE ---
History Report prepared by Lissa: Mariel Mayo Under the Supervision of: Dr. Fernando Joseph M.D. First contact with patient: 20:03 Chief Complaint: FALL Stated Complaint: FALL, HIT HEAD TWITED NECK ON COUMADIN History of Present Illness The patient is a 77 year old female who presents to the Emergency Room with complaints of a persistent headache from a fall that occurred a few hours ago. The patient rates her pain a 5/10 in severity. She notes she hit her head when she fell but she did not pass out. She states her neck feel tighter than usual. Her shoulders also feel tight. She notes she has lung issues, fluid issues, a pacemaker, and has been in Afib. The patient is on Coumadin and Lasix. Source of History: patient Onset: a few hours ago Position: head Symptom Intensity: 5/10 Timing: other (persistent) Associated Symptoms: + neck pain Note: Additional symptoms: shoulder tightness. Review of Systems See HPI for pertinent positives & negatives. A total of 10 systems reviewed and were otherwise negative. Past Medical & Surgical Medical Problems: (1) Acute CHF (2) AMI (acute myocardial infarction) (3) Anticoagulated on Coumadin (4) Arm laceration (5) Atrial fibrillation (6) Atrial fibrillation with rapid ventricular response (7) Benign hypertension (8) CAD (coronary artery disease) (9) Cellulitis (10) Cellulitis of left lower extremity (11) Cellulitis of left lower extremity without foot (12) Cellulitis of leg, right (13) GERD (gastroesophageal reflux disease) (14) Hyperlipidemia (15) Hypoxia (16) Knee hemarthrosis, left (17) Laceration of lower extremity (18) Lumbar disc disease (19) Lumbar disc disease (20) MRSA (21) ELISEO (obstructive sleep apnea) (22) Pain of left lower leg (23) Right-sided epistaxis (24) rotator cuff surgery (25) Sarcoidosis (26) Shoulder sprain (27) Skin tear of forearm without complication (28) Skin tear of lower leg without complication (29) Spinal stenosis (30) Spinal stenosis (31) Spinal stenosis (32) Supratherapeutic INR (33) Supratherapeutic INR Surgical Problems: (1) Percutaneous transluminal coronary angioplasty status (2) Postoperative state (3) Total knee replacement status Social History Problems: (1) Laceration of lower extremity Family History Cancer Diabetes mellitus FHx: heart disease FHx: hypertension Lung disease Social History Smoking Status: Never Smoker Alcohol Use: none Drug Use: none Marital Status: Housing Status: lives alone Occupation Status: retired Current/Historical Medications Scheduled Aspirin (Aspirin Low Dose), 81 MG PO 3XWK Ferrous Sulfate (Ferrous Sulfate), 325 MG PO QAM Folic Acid (Folvite), 1 MG PO QAM Furosemide (Lasix), 80 MG PO 2XWK Furosemide (Lasix), 40 MG PO 5XWK Metformin HCl (Metformin HCl), 500 MG PO BID Metoprolol Succinate (Metoprolol Succinate ER), 37.5 MG PO BID Montelukast Sod (Montelukast Sodium), 10 MG PO HS Ocuvite Preservision (Ocuvite Preservision), 1 TAB PO BID Probiotic Product (Acidophilus), 2 TABS PO QPM Ranitidine HCl (Ranitidine HCl), 150 MG PO QPM Warfarin Sodium (Warfarin Sodium), 4 MG PO 4XWK Warfarin Sodium (Warfarin Sodium), 2 MG PO 3XWK Scheduled PRN Fluticasone Propionate (Fluticasone Propionate), 2 SPRAYS [place] DAILY PRN for Allergy Symptoms Ipratropium-Albuterol (Combivent Respimat), 1 PUFF INH UD PRN for Shortness of Breath Nitroglycerin (Nitrostat), 0.4 MG UT UD PRN for Chest Pain Oxycodone HCl (Oxycodone HCl), 15 MG PO Q6H PRN for Pain Oxycodone/Acetaminophen 5MG/325MG (Percocet 5MG/325MG), 1-2 TABS PO Q4H PRN for Pain Allergies Coded Allergies: Adhesives (Verified Allergy, Unknown, RASH, 02/03/18) Morphine (Verified Adverse Reaction, Unknown, SENSITIVITY, 02/03/18) Physical Exam Vital Signs Date Time Temp Pulse Resp B/P (MAP) Pulse Ox O2 Delivery O2 Flow Rate FiO2 02/03/18 21:24 36.5 61 20 120/63 96 02/03/18 21:07 61 20 120/63 96 Room Air 02/03/18 20:00 36.5 88 18 141/82 95 Room Air Physical Exam GENERAL: Patient is elderly appearing and in minimal distress. EYES: No scleral icterus, unremarkable pupils. ENT: Mucous membranes moist, no nasal congestion. HEAD: Tenderness over left scalp and left lateral cervical spine. NECK: No masses appreciated, no meningismus, trachea is midline. RESPIRATORY: No dyspnea. Clear to auscultation and equal bilaterally. No wheeze , no rhonchi. CARDIOVASCULAR: Regular rate and rhythm. No murmurs, rubs, gallops appreciated. GASTROINTESTINAL: Abdomen soft, nontender, no peritonitis. Bowel sounds positive. No masses appreciated. BACK: No midline tenderness, no CVA tenderness EXTREMITIES: Normal motion all extremities, no cyanosis, no edema. NEUROLOGIC: Alert and oriented, no acute motor or sensory deficits, no focal weakness, cranial nerves grossly intact. SKIN: No rash, no jaundice, no diaphoresis. Medical Decision & Procedures ER Provider Diagnostic Interpretation: Radiology results and stated below per my review and radiologist interpretation: HEAD WITHOUT CONTRAST (CT) CLINICAL HISTORY: 77 years-old Female presenting with fall left head injury on coumadin. TECHNIQUE: Multidetector CT imaging of the head was performed without the use of intravenous contrast. IV contrast: None. A dose lowering technique was used consistent with the principles of ALARA (as low as reasonably achievable). COMPARISON: 06/17/2009. CT DOSE (mGy.cm): The estimated cumulative dose is 923.[address] cervical spine. 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 Ventricles and sulci normal in size. Brain parenchyma normal in appearance with preserved mac-white differentiation. No mass effect or midline shift. No hemorrhage or acute territorial infarct. No extra-axial fluid collection. Aerated secretions in the right maxillary sinus. Calvarium intact. IMPRESSION: 1. No acute intracranial abnormality. Electronically signed by: Husam Michelle M.D. 02/03/2018 8:44 PM Dictated Date/Time: 02/03/2018 8:42 PM CERVICAL SPINE W/O CLINICAL HISTORY: 77 years-old Female presenting with fall left neck pain. TECHNIQUE: Multidetector CT of the cervical spine was performed without the use of intravenous contrast. IV contrast: None. A dose lowering technique was used consistent with the principles of ALARA (as low as reasonably achievable). COMPARISON: 07/18/2017. CT DOSE (mGy.cm): The estimated cumulative dose is 923.18 mGy.cm. 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 3-lead left subclavian implanted cardiac device partially visualized. Normal cervical lordosis. Multilevel degenerative changes. Vertebral body height loss suggested at C5-C6, likely degenerative in etiology as well as from osteopenia. Disc osteophyte complexes noted at every level to varying degrees. Posterior bony spurring most prominent at C5-6. Disc osteophyte complexes/uncovertebral hypertrophy and facet arthropathy result in severe osseous neural foraminal narrowing on the right at C3-4, mild bilateral C4-5, and mild bilateral at C5-6. No acute fracture or subluxation. Extensive degenerative change at the atlantodental articulation and the right lateral mass of C1 with C2. Slight right transverse subluxation of C1 on C2 is likely chronic and related to degenerative change. Lung apices clear. Thyroid nodules noted, some with coarse calcification. Paraspinal soft tissues otherwise normal allowing for noncontrast technique. IMPRESSION: 1. No acute osseous injury of the cervical spine. 2. Multilevel degenerative changes similar to prior exam. These include very degrees of osseous neural foraminal narrowing. Spinal canal narrowing secondary to posterior bony spurring at C5-6. 3. Chronic transverse subluxation of C1 on C2 with extensive degenerative changes at the atlantodental articulation. Electronically signed by: Husam Michelle M.D. 02/03/2018 8:50 PM Dictated Date/Time: 02/03/2018 8:44 PM ED Course 2002: The patient was evaluated in room C1B. A complete history and physical exam was performed. 2124: Reevaluated the patient. Discussed results and discharge instructions: She verbalized understanding and agreement. The patient is ready for discharge. Medical Decision Pleasant 77 yr old female on Coumadin who notes recent INR therapeutic arrives following mechanical fall left head. Left neck pain as well. No evidence of dissection nor other injuries. Given neck issues previously and on Coumadin felt CT Head and Neck indicated which were both negative for acute process. Significant arthritic changes noted to patient. Reviewed discharge instructions and she is comfortable with this plan. Home with family. Head Trauma GCS Score: 15 Medication Reconcilliation Current Medication List: was personally reviewed by me Blood Pressure Screening Patient's blood pressure: Normal blood pressure Impression Primary Impression: Contusion of left temporofrontal scalp Additional Impressions: Head injury, closed Cervical spine arthritis Scribe Attestation The scribe's documentation has been prepared under my direction and personally reviewed by me in its entirety. I confirm that the note above accurately reflects all work, treatment, procedures, and medical decision making performed by me. Departure Information Dispostion Home / Self-Care Referrals Farheen Mayo M.D. (PCP) Patient Instructions My [facility] Additional Instructions Return if worsening headache, vision changes, weakness, vomiting, or other concerns. Use Tylenol as needed for discomfort. Problem Qualifiers
[2018-02-03] MEDS ORDERED: FRS/40 PO (20:44)
--- NOTE | 2018-02-03 20:46 | DIAGNOSTIC IMAGING REPORT ---
HEAD WITHOUT CONTRAST (CT) CLINICAL HISTORY: 77 years-old Female presenting with fall left head injury on coumadin. TECHNIQUE: Multidetector CT imaging of the head was performed without the use of intravenous contrast. IV contrast: None. A dose lowering technique was used consistent with the principles of ALARA (as low as reasonably achievable). COMPARISON: 06/17/2009. CT DOSE (mGy.cm): The estimated cumulative dose is 923.[address] cervical spine. 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 Ventricles and sulci normal in size. Brain parenchyma normal in appearance with preserved mac-white differentiation. No mass effect or midline shift. No hemorrhage or acute territorial infarct. No extra-axial fluid collection. Aerated secretions in the right maxillary sinus. Calvarium intact. IMPRESSION: 1. No acute intracranial abnormality. Electronically signed by: Husam Michelle M.D. 02/03/2018 8:44 PM Dictated Date/Time: 02/03/2018 8:42 PM
--- NOTE | 2018-02-03 20:52 | DIAGNOSTIC IMAGING REPORT ---
CERVICAL SPINE W/O CLINICAL HISTORY: 77 years-old Female presenting with fall left neck pain. TECHNIQUE: Multidetector CT of the cervical spine was performed without the use of intravenous contrast. IV contrast: None. A dose lowering technique was used consistent with the principles of ALARA (as low as reasonably achievable). COMPARISON: 07/18/2017. CT DOSE (mGy.cm): The estimated cumulative dose is 923.18 mGy.cm. 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 3-lead left subclavian implanted cardiac device partially visualized. Normal cervical lordosis. Multilevel degenerative changes. Vertebral body height loss suggested at C5-C6, likely degenerative in etiology as well as from osteopenia. Disc osteophyte complexes noted at every level to varying degrees. Posterior bony spurring most prominent at C5-6. Disc osteophyte complexes/uncovertebral hypertrophy and facet arthropathy result in severe osseous neural foraminal narrowing on the right at C3-4, mild bilateral C4-5, and mild bilateral at C5-6. No acute fracture or subluxation. Extensive degenerative change at the atlantodental articulation and the right lateral mass of C1 with C2. Slight right transverse subluxation of C1 on C2 is likely chronic and related to degenerative change. Lung apices clear. Thyroid nodules noted, some with coarse calcification. Paraspinal soft tissues otherwise normal allowing for noncontrast technique. IMPRESSION: 1. No acute osseous injury of the cervical spine. 2. Multilevel degenerative changes similar to prior exam. These include very degrees of osseous neural foraminal narrowing. Spinal canal narrowing secondary to posterior bony spurring at C5-6. 3. Chronic transverse subluxation of C1 on C2 with extensive degenerative changes at the atlantodental articulation. Electronically signed by: Husam Michelle M.D. 02/03/2018 8:50 PM Dictated Date/Time: 02/03/2018 8:44 PM
[2018-02-03 21:24] VITALS: BP 120/63; PULSE 61; TEMP 36.5; O2SAT 96
== END 2018-02-03 21:24 | disposition home or self-care (01) ==
LOC: C.EDB 19:55 → C.EDC 21:24
DX: S00.03XA Contusion of scalp, initial encounter (principal); W01.198A Fall on same level from slipping, tripping and stumbling with subsequent striking against other object, initial encounter; M47.812 Spondylosis without myelopathy or radiculopathy, cervical region; R40.2412 Glasgow coma scale score 13-15, at arrival to emergency department; I48.91 Unspecified atrial fibrillation; Z95.0 Presence of cardiac pacemaker; I10 Essential (primary) hypertension; I25.2 Old myocardial infarction; I25.10 Atherosclerotic heart disease of native coronary artery without angina pectoris; E78.5 Hyperlipidemia, unspecified; K21.9 Gastro-esophageal reflux disease without esophagitis; M48.00 Spinal stenosis, site unspecified; Z79.01 Long term (current) use of anticoagulants; Z79.82 Long term (current) use of aspirin; Z79.84 Long term (current) use of oral hypoglycemic drugs; Z88.6 Allergy status to analgesic agent; Z91.048 Other nonmedicinal substance allergy status; Z83.3 Family history of diabetes mellitus; Z82.49 Family history of ischemic heart disease and other diseases of the circulatory system; Z83.6 Family history of other diseases of the respiratory system

== ENCOUNTER → 2018-02-06 | Outpatient (CLI) | payer OTHER ==
[~2018-02-06] MED LIST changes: -CHOL100027 PO; -CYAN100020 PO; -MULT1CHW37 PO; -SLWMEC PO
--- NOTE | 2018-02-06 11:41 | DIAGNOSTIC IMAGING REPORT ---
R SHOULDER MIN 2 VIEWS ROUTINE CLINICAL HISTORY: 77 years-old Female presenting with RIGHT SHOULDER PAIN. TECHNIQUE: Internal rotation, external rotation, Grashey views of the right shoulder were obtained. COMPARISON: Chest x-ray from 01/10/2018. FINDINGS: Glenohumeral and acromioclavicular joints congruent. However, degenerative changes of the glenohumeral and acromioclavicular joints are evident. There is resultant deformity of the articular surface of the humeral head and greater concavity than normal of the glenoid fossa. There is also enthesophyte formation at the greater tuberosity of the humeral head at the insertion of the rotator cuff. No acute fracture allowing for suspected osteopenia. This was portion of the right hemithorax normal. Partially visualized pacer wires. IMPRESSION: 1. Advanced degenerative changes of the glenohumeral joint. 2. Degenerative changes of the rotator cuff footplate. 3. No acute osseous injury allowing for osteopenia. Electronically signed by: Husam Michelle M.D. 02/06/2018 11:40 AM Dictated Date/Time: 02/06/2018 11:38 AM
== END | disposition home or self-care (01) ==
LOC: C.RADPV 11:23
PROVIDERS: ATTEND Family Medicine
DX: M25.511 Pain in right shoulder (principal); M19.011 Primary osteoarthritis, right shoulder

== ENCOUNTER → 2018-03-21 | Outpatient (CLI) | payer OTHER ==
--- NOTE | 2018-03-22 07:50 | MAMMOGRAPHY REPORT ---
BILATERAL DIGITAL DIAGNOSTIC MAMMOGRAM TOMOSYNTHESIS WITH CAD: 03/21/2018 CLINICAL HISTORY: Short interval follow-up of left breast calcifications. Due for routine mammograph y of the right breast. The patient reports no new lumps or other complaints. TECHNIQUE: Breast tomosynthesis in addition to standard 2D mammography was performed. Current study was also evaluated with a Computer Aided Detection (CAD) system. Bilateral CC and MLO 2D and tomosyn thesis images and spot magnification left CC and ML views were obtained. COMPARISON: Comparison is made to exams dated: 09/21/2017 mammogram, 02/13/2017 mammogram, 12/15/2015 ma mmogram, 12/14/2014 mammogram, 12/03/2013 mammogram, and 11/29/2012 mammogram - [facility]. BREAST COMPOSITION: There are scattered areas of fibroglandular density in both breasts. FINDINGS: Spot magnification views of the left breast again demonstrate multiple small clusters of pu nctate and amorphous calcifications within the left upper outer quadrant. Compared to prior exams, t he calcifications are stable on spot magnification views dating back to February 2017. Additionally, th e calcifications are likely not significantly changed compared to older prior exams including the 201 5 and 2010 exams although it is difficult to make accurate comparison due to technical differences. Given at least one year of stability on spot magnification views, the calcifications are probably annalee ign. The remainder of both breasts are stable compared to prior exams, without suspicious masses, calcific ations, or areas of architectural distortion noted. Other scattered bilateral benign-appearing calci fications are not significantly changed. A pacemaker obscures portions of the left superior posterio r breast. IMPRESSION: ACR-BI-RADS CATEGORY 3: PROBABLY BENIGN Multiple small clusters of calcifications within the left upper outer quadrant are stable dating back to at least the February 2017 exam on spot magnification views and are probably benign. Recommend bila teral diagnostic tomosynthesis mammograms in 12 months, to confirm longer stability of the left breas t calcifications and for routine mammography of the right breast. The patient has been verbally notified of the results. Approximately 10% of breast cancers are not detected with mammography. A negative mammographic report should not delay biopsy if a clinically suggestive mass is present. Indira Lopez M.D. /:03/21/2018 14:25:57 Fence Making Machine Operator: Tete Grady, [facility] letter sent: Follow Up Recommended 3 BI-RADS Code: ACR-BI-RADS Category 3: Probably Benign
== END | disposition home or self-care (01) ==
LOC: C.MAMM 13:50
PROVIDERS: ATTEND Family Medicine
DX: R92.1 Mammographic calcification found on diagnostic imaging of breast (principal)

== ENCOUNTER 2019-03-19 09:22 | Inpatient (IN) ==
--- NOTE | 2019-03-06 14:37 | PAT Medication Instructions ---
Medication Instructions Date of Service March 06, 2019 Home Medications Medication Instructions Recorded oxycodone-acetaminophen [Percocet] 1 tab PO Q6H #30 tab 08/24/18 Lactobacillus acidophilus capsule 2 cap PO HS aspirin 81 mg tablet,delayed 81 mg PO MONWEDFRI ferrous sulfate 325 mg (65 mg 325 mg PO QAM folic acid 1 mg tablet 1 mg PO QAM furosemide 40 mg tablet 40 mg PO QAM metoprolol succinate ER 25 mg 37.5 mg PO BID montelukast 10 mg tablet 10 mg PO QPM nitroglycerin 0.4 mg sublingual 0.4 mg SL Q5M PRN ranitidine 150 mg capsule 150 mg PO QPM warfarin 2 mg tablet 2 mg PO MONWEDFRI warfarin 4 mg tablet 4 mg PO TUESTHURSAT fluticasone propionate [Flonase 1 spray INTRANASAL ONCE PRN enoxaparin [Lovenox] 60 mg SUBCUT Q12H oxycodone-acetaminophen [Percocet] 1 tab PO Q6H ASK your prescriber and surgeon Lactobacillus acidophilus capsule 2 cap PO HS aspirin 81 mg tablet,delayed 81 mg PO MONWEDFRI ferrous sulfate 325 mg (65 mg 325 mg PO QAM folic acid 1 mg tablet 1 mg PO QAM furosemide 40 mg tablet 40 mg PO QAM metoprolol succinate ER 25 mg 37.5 mg PO BID montelukast 10 mg tablet 10 mg PO QPM nitroglycerin 0.4 mg sublingual 0.4 mg SL Q5M PRN ranitidine 150 mg capsule 150 mg PO QPM warfarin 2 mg tablet 2 mg PO MONWEDFRI warfarin 4 mg tablet 4 mg PO TUESTHURSAT fluticasone propionate [Flonase 1 spray INTRANASAL ONCE PRN enoxaparin [Lovenox] 60 mg SUBCUT Q12H oxycodone-acetaminophen [Percocet] 1 tab PO Q6H Take morning of surgery With a small sip of water, OTHERWISE NOTHING TO EAT OR DRINK AFTER MIDNIGHT: Insulin Dependent Diabetic Patients * Test your blood sugar the morning of surgery * If Blood Sugar is GREATER THAN 150, take HALF of your regular dose of: * If Blood Sugar is LESS THAN 150, DO NOT TAKE ANY: Other Notes If you have any questions please call us at [phone] or [phone] or [phone] or [phone]
--- NOTE | 2019-03-07 12:18 | Anesthesiology Consultation ---
Date of Service March 07, 2019 History Surgery Operation Date: 03/19/19 12:15 Proposed Procedures p Left Reversed Total Shoulder Arthroplasty - Heath Sosa MD Height/Weight Height: 5 ft 1 in Weight: 80.286 kg Allergies Allergy/AdvReac Type Severity Reaction Status Date / Time adhesive Allergy Mild RASH & Verified 03/06/19 15:09 BLISTERS NSAIDS (Non-Steroidal AdvReac Intermediate ADVISED TO Verified 03/06/19 15:09 Anti-Inflamma AVOID DUE TO KIDNEY DISEASE morphine AdvReac Mild "SENSITIVIT Verified 03/06/19 15:09 Y" Medications Home Medications Medication Instructions Recorded Confirmed Last Taken Lactobacillus acidophilus capsule 2 cap PO HS cap 07/11/18 03/06/19 08/20/18 22:00 aspirin 81 mg tablet,delayed 81 mg PO MONWEDFRI tab 07/11/18 03/06/19 08/20/18 01:00 release ferrous sulfate 325 mg (65 mg 325 mg PO QAM tab 07/11/18 03/06/19 08/20/18 iron) tablet 1000 folic acid 1 mg tablet 1 mg PO QAM 07/11/18 03/06/19 08/20/18 1000 furosemide 40 mg tablet 40 mg PO QAM 07/11/18 03/06/19 08/20/18 0800 metoprolol succinate ER 25 mg 37.5 mg PO BID tab 07/11/18 03/06/19 08/21/18 07:00 tablet,extended release 24 hr montelukast 10 mg tablet 10 mg PO QPM 07/11/18 03/06/19 Unknown nitroglycerin 0.4 mg sublingual 0.4 mg SL Q5M PRN 07/11/18 03/06/19 Unknown tablet ranitidine 150 mg capsule 150 mg PO QPM 07/11/18 03/06/19 08/19/18 20:00 warfarin 2 mg tablet 2 mg PO 4XWK tab 07/11/18 03/06/19 08/14/18 22:00 warfarin 4 mg tablet 4 mg PO 3XWK tab 07/11/18 03/06/19 08/15/18 22:00 fluticasone propionate [Flonase 1 spray INTRANASAL ONCE PRN 08/16/18 03/06/19 08/14/18 Allergy Relief] oxycodone-acetaminophen [Percocet] 1 tab PO Q6H #30 tab 08/24/18 03/06/19 Unknown Past Medical History Medical History Atrial fibrillation Paroxysmal, then persistent with difficult to control rhythm and rate, ultimately requiring AV junction ablation and insertion of dual-chamber BiV pacer 05/2016 CAD (coronary artery disease) CHF (congestive heart failure) Right sided 2/2 elevated pulmonary pressures/sarcoidosis CKD (chronic kidney disease) stage 3, GFR 30-59 ml/min GERD (gastroesophageal reflux disease) H/O acute myocardial infarction 2012 HTN (hypertension) History of diabetes mellitus, type II Hypercalcemia MONITORING WITH DR. INDIA DICKSON Hyperlipidemia HISTORY Obesity Obstructive sleep apnea on CPAP On home oxygen therapy 02 AT 2L PRN Sarcoidosis pulmonary and ocular involvement Spinal stenosis Past Family History Family History Grandfather No problems noted. Grandmother No problems noted. 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
--- NOTE | 2019-03-07 12:19 | PAT Medication Instructions ---
Medication Instructions Date of Service March 07, 2019 Home Medications Medication Instructions Recorded oxycodone-acetaminophen [Percocet] 1 tab PO Q6H #30 tab 08/24/18 Lactobacillus acidophilus capsule 2 cap PO HS aspirin 81 mg tablet,delayed 81 mg PO MONWEDFRI ferrous sulfate 325 mg (65 mg0 325 mg PO QAM folic acid 1 mg tablet 1 mg PO QAM furosemide 40 mg tablet 40 mg PO QAM metoprolol succinate ER 25 mg 37.5 mg PO BID montelukast 10 mg tablet 10 mg PO QPM nitroglycerin 0.4 mg sublingual 0.4 mg SL Q5M PRN ranitidine 150 mg capsule 150 mg PO QPM warfarin 2 mg tablet 2 mg PO 4XWK warfarin 4 mg tablet 4 mg PO 3XWK fluticasone propionate [Flonase Allergy Relief] 1 spray INTRANASAL ONCE PRN oxycodone-acetaminophen [Percocet] 1 tab PO Q6H Continue as directed aspirin 81 mg tablet,delayed 81 mg PO MONWEDFRI nitroglycerin 0.4 mg sublingual 0.4 mg SL Q5M PRN ASK your prescriber and surgeon warfarin 2 mg tablet 2 mg PO 4XWK warfarin 4 mg tablet 4 mg PO 3XWK DO NOT take the morning of surgery ferrous sulfate 325 mg (65 mg0 325 mg PO QAM folic acid 1 mg tablet 1 mg PO QAM furosemide 40 mg tablet 40 mg PO QAM Take morning of surgery With a small sip of water, OTHERWISE NOTHING TO EAT OR DRINK AFTER MIDNIGHT: metoprolol succinate ER 25 mg 37.5 mg PO BID fluticasone propionate [Flonase Allergy Relief] 1 spray INTRANASAL ONCE PRN (if needed) oxycodone-acetaminophen [Percocet] 1 tab PO Q6H Take evening before surgery Lactobacillus acidophilus capsule 2 cap PO HS metoprolol succinate ER 25 mg 37.5 mg PO BID montelukast 10 mg tablet 10 mg PO QPM ranitidine 150 mg capsule 150 mg PO QPM fluticasone propionate [Flonase Allergy Relief] 1 spray INTRANASAL ONCE PRN oxycodone-acetaminophen [Percocet] 1 tab PO Q6H Other Notes If you have any questions please call us at [phone] or [phone] or [phone] or [phone]
--- NOTE | 2019-03-07 12:41 | Anesthesiology Consultation ---
Date of Service March 07, 2019 Assessment & Plan (1) Encounter for pre-operative examination: Patient had R reverse TSA 08/21/18 at [facility]. Magnet was placed over pacer, and surgeon encouraged to use short bovie passes. Per surgeon discharge summary, "The patient did have some hypoxemia postoperatively. A CT scan and chest x-ray showed no acute process, just the diagnosis of her already known sarcoidosis. She was put on a 2-step program prior to discharge and completed it successfully." Vital signs are not documented in anesthesia progress note from this surgery (note appears to have been added on 09/06). Senior Linux Unix Administrator recommending postprocedure pacer interrogation--OR made aware for rep to be present. Cardiology Clearance 03/06/19: "Pacemaker interrogation this coming week. Given plan left shoulder surgery caution will need be made giving placement of cautery patches with pacemaker in vicinity. Device should be reinterrogated postprocedure. Anti-platelet therapy with aspirin should be continued throughout the procedure and full anticoagulation resumed as soon as possible postop with bridge anticoagulation ordered. Current pulmonary exacerbation should be stable prior to proceeding*. Patient following with Dr. Walton. Jolene procedure oxygen supplementation and CPAP supplementation should be continued." *see PCP clearance below Pulmonology 03/05/19: "The patient has what seemingly would be in acute bronchitis. She feels better today than she had been. I explained to her that if she is not totally cleared up few days before her surgery it should be canceled. She states she is aware of that. She does represent at least a moderate to high risk from a pulmonary perspective for her surgery. However she had the similar surgery in the fall of 2017 and did very well. I would definitely want her bronchitis to be totally clear however prior to the surgery. The anesthesia department should take the usual precautions for a patient with obstructive sle ep apnea. -- SHE IS CLEARED FOR SURGERY ONLY IF HER COUGH HAS TOTALLY RESOLVED*." *Pt has some degree of chronic cough, but was seen by PCP for treatment and f/u of cough and was cleared for surgery by them (see below). PCP Clearance 03/14/19: "The cough appears much improved...Patient is at significant surgical risk with her other comorbid conditions. I strongly inform ed the patient if the intensity of cough is worsening with productive sputum I recommended patient to withhold surgery. At this point she is medically risk stratified for surgery at this time." CHECK PT/INR/PTT AM DOS Chart Review Chart Review: Acceptable Risk for Surgery and Patient seen in Pre Admission Testing Teaching & Discussion Instructed NPO after midnight before surgery, except medications with 15 cc of water. Medication instructions provided according to the PAT guidelines. History Surgery Operation Date: 03/19/19 12:15 Proposed Procedures p Left Reversed Total Shoulder Arthroplasty - Heath Sosa MD Height/Weight Height: 5 ft 1 in Weight: 82.6 kg Allergies Allergy/AdvReac Type Severity Reaction Status Date / Time adhesive Allergy Mild RASH & Verified 03/06/19 15:09 BLISTERS NSAIDS (Non-Steroidal AdvReac Intermediate ADVISED TO Verified 03/06/19 15:09 Anti-Inflamma AVOID DUE TO KIDNEY DISEASE morphine AdvReac Mild "SENSITIVIT Verified 03/06/19 15:09 Y" Medications Home Medications Medication Instructions Recorded Confirmed Last Taken Lactobacillus acidophilus capsule 2 cap PO HS cap 07/11/18 03/06/19 08/20/18 22:00 aspirin 81 mg tablet,delayed 81 mg PO MONWEDFRI tab 07/11/18 03/06/19 08/20/18 01:00 release ferrous sulfate 325 mg (65 mg 325 mg PO QAM tab 07/11/18 03/06/19 08/20/18 iron) tablet 1000 folic acid 1 mg tablet 1 mg PO QAM 07/11/18 03/06/19 08/20/18 1000 furosemide 40 mg tablet 40 mg PO QAM 07/11/18 03/06/19 08/20/18 0800 metoprolol succinate ER 25 mg 37.5 mg PO BID tab 07/11/18 03/06/19 08/21/18 07:00 tablet,extended release 24 hr montelukast 10 mg tablet 10 mg PO QPM 07/11/18 03/06/19 Unknown nitroglycerin 0.4 mg sublingual 0.4 mg SL Q5M PRN 07/11/18 03/06/19 Unknown tablet ranitidine 150 mg capsule 150 mg PO QPM 07/11/18 03/06/19 08/19/18 20:00 warfarin 2 mg tablet 2 mg PO 4XWK tab 07/11/18 03/06/19 08/14/18 22:00 warfarin 4 mg tablet 4 mg PO 3XWK tab 07/11/18 03/06/19 08/15/18 22:00 fluticasone propionate [Flonase 1 spray INTRANASAL ONCE PRN 08/16/18 03/06/19 08/14/18 Allergy Relief] oxycodone-acetaminophen [Percocet] 1 tab PO Q6H #30 tab 08/24/18 03/06/19 Unknown Past Medical History Medical History Atrial fibrillation Paroxysmal, then persistent with difficult to control rhythm and rate, ultimately requiring AV junction ablation and insertion of dual-chamber BiV pacer 05/2016 CAD (coronary artery disease) s/p PR and cath 2012, not amenable to PCI CHF (congestive heart failure) Right sided 2/2 elevated pulmonary pressures/sarcoidosis CKD (chronic kidney disease) stage 3, GFR 30-59 ml/min Cough Currently with exacerbation of underlying pulm issues. On Doxy with recent Prednisone course. Pre-op CXR 03/07 showed no acute disease. Seen by PCP 03/14 for f/u-- "cough appears much improved." GERD (gastroesophageal reflux disease) H/O acute myocardial infarction 2012 HTN (hypertension) History of diabetes mellitus, type II Diet controlled Hypercalcemia Hyperlipidemia HISTORY Obesity Obstructive sleep apnea on CPAP On home oxygen therapy 2/2 SARCOIDOSIS. O2 AT 2L PRN Sarcoidosis pulmonary and ocular involvement Spinal stenosis Past Family History Family History Grandfather No problems noted. Grandmother No problems noted. Aunt Family history of diabetes mellitus Grandmother (Paternal) Family history of diabetes mellitus Grandfather (Paternal) Family history of diabetes mellitus Past Surgical History Surgical History Status post reverse total arthroplasty of right shoulder Fusion of spine T12-L5 (~2013) H/O cardiac radiofrequency ablation 2015 H/O tubal ligation History of cardiac cath 2012 History of carpal tunnel release BILATERAL History of colonoscopy History of repair of rotator cuff RT SHOULDER S/P cardiac pacemaker procedure SongtradrTRONIC DEVICE/DR. RIDLEY CHECKS DEVICE APT 03/10/19 S/P rotator cuff repair 2012, complicated by post-op embolic PR, thrombus observed Total knee replacement status R knee (TOTAL OF 8 SURGERIES) Past Anesthesia History No Hx of Anesthesia Complications and No Family Hx of Anesthesia Complications R REVERSE TSA DONE AT [facility] 08/21/18. MAC 3, ETT 7.0, GRADE VIEW I. NO VITALS SIGNS IN ANESTHESIA PROGRESS NOTE, BUT SURGEON DISCHARGE SUMMARY NOTES HYPOXEMIA POST OP. PATIENT WAS EXTUBATED IN OR PER ANESTHESIA RECORD. 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 +URI/congestion, seeing PCP 03/11 for f/u. Physical Exam Vital Signs BP: 112/70 P: 62bpm SPO2: 100% on 2L O2 via NC T: 98.1 F R: 18 ENMT Mouth: + dentures and + edentulous Thyromental Distance: < 3.5 Finger Breadths (3) Mallampati Class: II Neck + short neck; neck extension not limited Wearing soft cervical collar for comfort due to arthritis. Respiratory normal respiratory effort Auscultation: + crackles (inspiratory B/L bases) Cardiovascular Rate/Rhythm: regular rate and regular rhythm Heart Sounds: + murmur (II/ systolic) Extremities: no edema Testing Electrocardiogram Date: 03/06/19 Ventricular paced rhythm at 82 bpm. Chest X-Ray Date: 03/07/19 FINDINGS: Mild elevation right hemidiaphragm. This is a chronic finding. Bipolar cardiac pacemaker with leads in good position. Lungs are considered clear. There is a small fixed hiatal hernia. IMPRESSION: Chronic and postoperative change. No acute process. Echocardiogram Date: 11/07/17 EF: 55% There is normal left ventricular wall thickness. The left ventricular wall motion is normal. The LV The right ventricle is moderately dilated. The right ventricular systolic function is reduced as assessed by tricuspid annular plane systolic excursion (TAPSE) (TAPSE <1.6 cm). The left atrium is severely dilated. The right atrium is moderately dilated. Aortic valve sclerosis moderate, without significant aortic valvular stenosis. There is moderate mitral regurgitation. There is moderate to severe tricuspid regurgitation. Severe pulmonary hypertension is present. PASP = 65 mmHg Compared to prior study dated 05/18/2016, right ventricular dysfunction and pulmonary hypertension is now present. Cardiac Catheterization Date: 09/01/13 1. Acute anterior wall myocardial infarct with totally occluded LAD and diagonal branch. 2. Successful angioplasty of the LAD and diagonal branch. 3. Mild left ventricular systolic dysfunction. 4. Normal hemodynamics. 5. No aortic gradient, mitral regurgitation or mitral prolapse. RECOMMENDATION: In view of successful angioplasty patient will be treated medically with antiplatelet including Aspirin, Brilinta and Nitrate. Other Testing Pacer Check 03/10/19 Medtronic, implanted 05/19/[address] Gillespie Pacin.9% BiV paced Battery: 2.99 volts with estimated longevity of 3 years. Mode: DDDR. Impression: Normal dual chamber biventricular pacemaker function. Stable pacing and sensing thresholds. Laboratory Results Blood Type A Positive 03/07/19 12:47 Antibody Screen NEGATIVE 03/07/19 12:47 PT 37.0 Seconds (9.0-12.0) H 03/07/19 12:47 INR 4.0 (0.9-1.1) H 03/07/19 12:47 APTT 42.2 Seconds (21.0-31.0) H 03/07/19 12:47 Hemoglobin A1c 6.2 % (4.5-5.6) H 03/07/19 12:47 Urine Color Yellow 03/07/19 Unknown Urine Appearance Clear (Clear) 03/07/19 Unknown Urine pH 6.5 (4.5-7.5) 03/07/19 Unknown Ur Specific [place] 1.014 (1.000-1.030) 03/07/19 Unknown Urine Protein Negative (Negative) 03/07/19 Unknown Urine Glucose (UA) Negative (Negative) 03/07/19 Unknown Urine Ketones Negative (Negative) 03/07/19 Unknown Urine Nitrite Negative (Negative) 03/07/19 Unknown Ur Leukocyte Esterase Negative (Negative) 03/07/19 Unknown Laboratory Tests 02/19/19 02/19/19 15:44 15:44 WBC 6.27 Hgb 12.8 Hct 39.0 Plt Count 209 Sodium 136 Potassium 3.6 Chloride 100 Carbon Dioxide 31 BUN 26 H Creatinine 1.18 Glucose 91 Laboratory Tests 03/07/19 12:47 Hemoglobin A1c 6.2 H *Senior Linux Unix Administrator made aware of supratherapeutic INR
--- NOTE | 2019-03-07 13:34 | XRay Report ---
XR chest Pre-admission PA/Lat CLINICAL HISTORY: pat preoperative evaluation COMPARISON STUDY: 08/23/2018 FINDINGS: Mild elevation right hemidiaphragm. This is a chronic finding. Bipolar cardiac pacemaker wi th leads in good position. Lungs are considered clear. There is a small fixed hiatal hernia. IMPRESSION: Chronic and postoperative change. No acute process. The above report was generated using voice recognition software. It may contain grammatical, syntax or spelling errors. Electronically signed by: Lion Means M.D. 03/07/2019 1:33 PM
[2019-03-07 14:12] LABS: Appearance Urine Clear (Clear); Bilirubin Urine Negative (Negative); Blood Urine Negative (Negative); Color Urine Yellow; Glucose Urine UA Negative (Negative); Ketones Urine Negative (Negative); Leukocyte Esterase Urine Negative (Negative); Nitrite Urine Negative (Negative); Protein Urine Negative (Negative); Specific Gravity Urine 1.014 (1.000-1.030); Urobilinogen Urine Negative (Negative); pH Urine 6.5 (4.5-7.5)
[2019-03-07 14:31] LABS: Partial Thromboplastin Ratio 1.6; Partial Thromboplastin Time 42.2 Seconds (21.0-31.0)
[2019-03-07 14:54] LABS: Estimated Average Glucose 131 mg/dl; Hemoglobin A1C 6.2 % (4.5-5.6)
--- NOTE | 2019-03-18 20:23 | History and Physical Report ---
DATE OF ADMISSION: 03/19/2019 CHIEF COMPLAINT: Left shoulder pain and weakness. HISTORY OF PRESENT ILLNESS: This is a 78-year-old female patient of Dr. Sosa'rhina complaining of chronic left shoulder pain and weakness, longstanding, now progressively getting worse. The patient failed conservative treatment and wished to proceed with a left reverse total shoulder arthroplasty. The patient has been diagnosed with end-stage osteoarthritis with rotator cuff insufficiency per clinical and radiographic exams. PAST MEDICAL HISTORY: Coronary artery disease status post an RI in 2013, congestive heart failure with a murmur, hypertension, irregular heartbeat, sleep apnea with the use of CPAP and oxygen, diabetes mellitus, sarcoidosis, anemia, osteoarthritis, spine problems, neck problems, upper back problems, sciatica, acid reflux, hiatal hernia, obesity. She has top and bottom dentures, stage III kidney disease and history of a pacemaker. PAST SURGICAL HISTORY: Carpal tunnel x2, back surgery, right total knee replacement, right shoulder replacement and pacemaker placement. FAMILY HISTORY: Noncontributory. REVIEW OF SYSTEMS: Chronic left shoulder pain and weakness. Otherwise, denies any shortness of breath, chest pain, nausea, vomiting or any other joint complaints. SOCIAL HISTORY: Nonsmoker, nondrinker. MEDICATIONS: 1. Aspirin 81 mg daily. 2. Flonase 50 mcg actuation nasal 1 spray daily in each nostril. 3. Nitroglycerin 0.4 mg sublingual as needed. 4. Montelukast 10 mg daily. 5. Coumadin 4 mg every Sunday, , Sunday, Sunday; half a tablet Sunday, Sunday, Sunday. 6. Folic acid 1 mg daily. 7. Furosemide 20 mg daily on Sunday, Sunday, Sunday. 8. Iron 325 mg daily. 9. Metoprolol 37.5 mg twice daily. 10. Probiotic 3 billion cell chewable tablet 2 gummies in the morning. 11. Ranitidine 150 mg twice daily. 12. Ocuvite PreserVision tablet daily. ALLERGIES: INCLUDE ADHESIVES AND MORPHINE. PHYSICAL EXAMINATION: GENERAL: Well-developed, well-nourished 78-year-old female in no acute distress. She is alert and oriented x3 and pleasant. HEENT: Normocephalic, atraumatic. Extraocular motions are intact. Pupils are equal and reactive to light. HEART: Regular rate and rhythm, no murmurs appreciated. LUNGS: Upper lungs are clear. Both lower lungs have some crackles. ABDOMEN: Soft, nontender, bowel sounds are present. EXTREMITIES: Left shoulder active range of motion at 0-45, passively to 90. She has crepitation. External rotation strength is 2/5, internal rotation is 4/5. NEUROLOGIC: Neurovascularly, she is intact in her left upper extremity. 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 She has a history of congestive heart failure, coronary artery disease, status post a myocardial infarction in 2013, heart murmur, hypertension, irregular heartbeat, sleep apnea with CPAP and oxygen, diabetes mellitus, sarcoidosis, anemia, osteoarthritis, spine problems, neck problems, upper back problems, sciatica, acid reflux, hiatal hernia, obesity, top and bottom denture placements, stage III kidney disease, history of pacemaker. PLAN: The patient was advised of her diagnoses. Indications, risks, benefits, and postop course have all been reviewed. The patient wished to proceed with a left reverse total shoulder arthroplasty. Necessary consent forms and preoperative testing and clearances will be obtained.
[~2019-03-19 09:22] MED LIST changes: +ACETAMINOPHEN 500 MG TAB PO SCH; -ASPI1TAB48 PO; +CEFAZOLIN 2000MG 2,000 MG/15 ML SYR IV SCH; +CeleBREX 200 MG CAP PO SCH; +FAMOTIDINE 20 MG TAB PO SCH; -FERR1TAB62 PO; -FLNIN/ NAE; -FOLI1TAB8 PO; -FRS/40 PO; +GABAPENTIN 300 MG PO SCH; -GLC500 PO; -IPRA1AER2 INH; +LR 15ML/HR IV SCH; +METOCLOPRAMIDE HCL 10 MG TABLET PO SCH; -MISCCHW PO; -MULT-190 PO; -NTRGSL/4 UT; -OXYC-57 PO; -OXYC-609 PO; -RANI150T2 PO; +ROPIVACAINE 0.5% 5 MG/ML 30 ML VIAL ONE; -SNG10 PO; -TPRSR/25 PO; +VANCOMYCIN HCL 1,000 MG/270 ML BAG IV SCH; -WARF-283 PO; +dexAMETHasone 4 MG TAB PO SCH
[2019-03-19] MEDS ORDERED: fentaNYL citrate 100 MCG/2 ML VIAL ONE (11:08)
[2019-03-19] MEDS ORDERED: MIDAZOLAM HCL 1 MG/ML 2ML VIAL ONE (11:08)
[2019-03-19 11:10] LABS: INR 1.3 (0.9-1.1); Partial Thromboplastin Ratio 1.1; Prothrombin Time 12.7 Seconds (9.0-12.0)
--- NOTE | 2019-03-19 11:37 | History & Physical Bridge Note ---
Date of Service March 19, 2019 History & Physical Bridge Note I have examined the patient, reviewed the History & Physical and in the interval since the performance of the History & Physical I have noted the following changes of clinical significance: no changes noted
[2019-03-19] MEDS ORDERED: BACITRACIN INJ 50,000 UNIT VIAL ONE (12:04)
[2019-03-19] MEDS ORDERED: VANCOMYCIN HCL 1 GM/270 ML BAG ONE (12:26)
[2019-03-19] MEDS ORDERED: ePHEDrine sulfate 50 MG/ML AMP IV PRN (12:57)
[2019-03-19] MEDS ORDERED: MoRPHine SULFATE 10 MG/ML CARP/VIAL IV PRN (12:57)
[2019-03-19] MEDS ORDERED: ATROPINE SULFATE 0.1 MG/ML 10ML SYR IV PRN (12:57)
--- NOTE | 2019-03-19 14:15 | Anesthesiology Progress Note ---
Date of Service March 19, 2019 The patient was given an interscalene nerve block and an arterial line. We were ready to take her to the O.R. when we were informed that the trays containing the instruments were wet and would have to be re-sterilized which would take four more hours[address] Dr. Sosa cancelled the case and put it on the schedule for tomorrow. She is going to the SICU as a telemetry patient to maintain the arterial line. I will give a full report to the credit support counselor. Anesthesia Post Procedure Vital Signs Vital Signs: Temp Pulse Resp BP Pulse Ox 03/19/19 10:43 36.8 C 65 20 133/83 95 Pain Intensity Left Elbow: Pain Intensity: 8 Transfer of Care Handoff Completed per policy Notes Mental Status: alert / awake / arousable Patient Amnestic to Procedure: Yes Nausea / Vomiting: adequately controlled Pain: adequately controlled Airway Patency, RR, SpO2: stable & adequate BP & HR: stable & adequate Hydration State: stable & adequate Anesthetic Complications: no major complications apparent and Pt Satisfied with anesthetic care
[2019-03-19] MEDS ORDERED: HYDROmorphone INJ 0.5 MG/0.5 ML SYR IV PRN (14:28)
[2019-03-19] MEDS ORDERED: OXYCODONE HCL IR 5 MG TAB (IMMEDIATE RELEASE) PO PRN (14:29)
[2019-03-19] MEDS ORDERED: ONDANSETRON INJ 2 MG/ML 2 ML VIAL IV PRN (14:58)
[2019-03-19] MEDS ORDERED: FLUTICASONE PROPIONATE NA SPR 16 GM BTL PRN (14:58)
[2019-03-19] MEDS ORDERED: ENOXAPARIN 80 MG/0.8 ML SYR SQ ONE (14:58)
[2019-03-19] MEDS ORDERED: NITROGLYCERIN SL 0.4 MG/TAB TAB SL PRN (14:58)
[2019-03-19] MEDS ORDERED: SODIUM CHLORIDE 0.9% 1000ML 1,000 ML IV SCH (14:58)
--- NOTE | 2019-03-19 15:16 | Critical Care Consultation ---
Date of Consultation March 19, 2019 Assessment & Plan (1) Admitted to intensive care unit: Plan OR tomorrow for left shoulder arthroplasty -Right radial arterial line helper History of Present Illness Attending Physician: Heath Sosa MD Patient had elective left shoulder replacement postponed. In preop patient had right artery radial arterial line placed. In an effort to avoid second procedure patient will be admitted to the ICU for radial art line monitoring to be utilized tomorrow. Patient currently without complaint. Allergies Allergy/AdvReac Type Severity Reaction Status Date / Time adhesive Allergy Mild RASH & Verified 03/19/19 10:34 BLISTERS NSAIDS (Non-Steroidal AdvReac Intermediate ADVISED TO Verified 03/19/19 10:34 Anti-Inflamma AVOID DUE TO KIDNEY DISEASE morphine AdvReac Mild "SENSITIVITY"- Verified 03/19/19 10:34 "go crazy" Home Medications Home Medications Medication Instructions Recorded Confirmed Type Lactobacillus acidophilus capsule 2 cap PO HS cap 07/11/18 03/19/19 History aspirin 81 mg tablet,delayed 81 mg PO MONWEDFRI tab 07/11/18 03/19/19 History release ferrous sulfate 325 mg (65 mg 325 mg PO QAM tab 07/11/18 03/19/19 History iron) tablet folic acid 1 mg tablet 1 mg PO QAM 07/11/18 03/19/19 History furosemide 40 mg tablet 40 mg PO QAM 07/11/18 03/19/19 History metoprolol succinate ER 25 mg 37.5 mg PO BID tab 07/11/18 03/19/19 History tablet,extended release 24 hr montelukast 10 mg tablet 10 mg PO QPM 07/11/18 03/19/19 History nitroglycerin 0.4 mg sublingual 0.4 mg SL Q5M PRN 07/11/18 03/19/19 History tablet ranitidine 150 mg capsule 150 mg PO QPM 07/11/18 03/19/19 History warfarin 2 mg tablet 2 mg PO 4XWK tab 07/11/18 03/19/19 History warfarin 4 mg tablet 4 mg PO 3XWK tab 07/11/18 03/19/19 History fluticasone propionate [Flonase 1 spray INTRANASAL ONCE PRN 08/16/18 03/19/19 History Allergy Relief] oxycodone-acetaminophen [Percocet] 1 tab PO Q6H #30 tab 08/24/18 03/19/19 Rx enoxaparin [Lovenox] 80 mg SUBCUT DAILY 03/19/19 03/19/19 History Patient History Medical History On home oxygen therapy 2/2 SARCOIDOSIS. O2 AT 2L PRN Atrial fibrillation Paroxysmal, then persistent with difficult to control rhythm and rate, ultimately requiring AV junction ablation and insertion of dual-chamber BiV pacer 05/2016 CAD (coronary artery disease) s/p VT and cath 2012, not amenable to PCI CHF (congestive heart failure) Right sided 2/2 elevated pulmonary pressures/sarcoidosis CKD (chronic kidney disease) stage 3, GFR 30-59 ml/min Cough Currently with exacerbation of underlying pulm issues. On Doxy with recent Prednisone course. Pre-op CXR 03/07 showed no acute disease. Seen by PCP 03/14 for f/u-- "cough appears much improved." GERD (gastroesophageal reflux disease) H/O acute myocardial infarction 2012 HTN (hypertension) History of diabetes mellitus, type II Diet controlled Hypercalcemia Hyperlipidemia HISTORY Obesity Obstructive sleep apnea on CPAP Sarcoidosis pulmonary and ocular involvement Spinal stenosis Surgical History Status post reverse total arthroplasty of right shoulder History of repair of rotator cuff RT SHOULDER Fusion of spine T12-L5 (~2013) H/O cardiac radiofrequency ablation 2015 H/O tubal ligation History of cardiac cath 2012 History of carpal tunnel release BILATERAL History of colonoscopy S/P cardiac pacemaker procedure [employer]ON[employer] DEVICE/DR. RIDLEY CHECKS DEVICE APT 03/10/19 S/P rotator cuff repair 2012, complicated by post-op embolic VT, thrombus observed Total knee replacement status R knee (TOTAL OF 8 SURGERIES) Family History Grandfather No problems noted. Grandmother No problems noted. Aunt Family history of diabetes mellitus Grandmother (Paternal) Family history of diabetes mellitus Grandfather (Paternal) Family history of diabetes mellitus Social History Preferred Language: Greek Communication Ability: Effective Visual Impairment: No Limitations Event Designer Required: No Beliefs That Will Affect Care: None marital status: / Current Living Situation: Alone Other Information That Helps Us Care for You: No Feels Safe at Home: Yes Safety Concerns: Feels Safe At This Time Smoking Status: Never smoker Do You Dip or Chew Tobacco: No Second Hand Exposure: Yes ("YEARS AGO") Tobacco Cessation Education Requested by Patient: No Hx Alcohol Use: Yes Alcohol type: hard liquor Hx Substance Use: No Review of Systems Constitutional: No chest pain no shortness of breath Physical Exam Physical Exam: General: Alert. nontoxic. Skin: Warm, dry, Head: Atraumatic Ears, nose, mouth and throat: airway patent Cardiovascular: Normal peripheral perfusion Respiratory: no respiratory distress Gastrointestinal: Non distended Musculoskeletal: Right radial arterial line present Results & Data Vital Signs (Past 12 Hours) Vital Signs Temp Pulse Pulse Resp BP Pulse Ox 03/19/19 14:43 36.2 C L 60 20 130/77 97 03/19/19 14:30 36.2 C L 60 20 129/76 99 03/19/19 14:20 60 19 123/72 99 03/19/19 14:10 60 28 H 129/68 100 03/19/19 14:03 36.8 C 61 16 140/82 94 03/19/19 10:43 36.8 C 65 20 133/83 95
[2019-03-19] MEDS: METOPROLOL SUCC 25MG EXT REL TAB PO SCH (20:46)
[2019-03-19] MEDS: MONTELUKAST SODIUM 10 MG TABLET PO SCH (20:47)
[2019-03-19] MEDS ORDERED: ICU PROTOCOL FOR HYPERGLYCEMIA PRN (23:03)
[2019-03-19] MEDS ORDERED: CARBOHYDRATES FOR HYPOGLYCEMIA PO PRN (23:04)
[2019-03-19] MEDS ORDERED: DEXTROSE 50% 50 ML SYRINGE IV PRN (23:04)
[2019-03-19] MEDS ORDERED: GLUCOSE 10 TABS/TUBE PO PRN (23:04)
[2019-03-19] MEDS ORDERED: GLUCOSE 40% GEL 15 GM TUBE PO PRN (23:04)
[2019-03-19] MEDS ORDERED: GLUCAGON FOR INJ 1 MG VIAL SQ PRN (23:04)
[2019-03-19] MEDS ORDERED: PHARMACY GLYCEMIC MGMT CONSULT PRN (23:12)
[2019-03-19] MEDS: INSULIN ASPART 100 UNITS/ML 3 ML PEN SC SCH (23:59)
[2019-03-20] MEDS: INSULIN ASPART 100 UNITS/ML 3 ML PEN SC SCH ×6 (04:15→23:54)
[2019-03-20 04:55] LABS: Eosinophils # (auto) 0.01 K/uL (0-0.5); Eosinophils % (auto) 0.1 %; Hematocrit (blood only) 36.1 % (37-47); Hemoglobin 12.8 g/dL (12.0-16.0); Immature Granulocytes # (auto) 0.01 K/uL (0.00-0.02); Immature Granulocytes % (auto) 0.1 %; Lymphocytes # (auto) 0.82 K/uL (1.2-3.4); Lymphocytes % (auto) 11.5 %; Mean Corpuscular Hgb Conc 35.5 g/dL (32-36); Mean Corpuscular Volume 95.8 fL (80-100); Mean Platelet Volume 10.4 fL (7.4-10.4); Monocytes # (auto) 0.66 K/uL (0.11-0.59); Monocytes % (auto) 9.3 %; Neutrophils # (auto) 5.63 K/uL (1.4-6.5); Platelet Count 177 K/uL (130-400); RDW Coefficient of Variation 14.9 % (11.5-14.5); Red Blood Count 3.77 M/uL (4.2-5.4); White Blood Count 7.13 K/uL (4.8-10.8)
[2019-03-20 05:07] LABS: BUN Creatinine Ratio 29.1 (10-20); Calcium 8.7 mg/dl (8.5-10.1); Creatinine Clr Calc Pharmacy 43.6 ml/min; Est GFR (African American) 64.5; Est GFR (Non-African American) 55.6; Potassium 3.8 mmol/L (3.5-5.1)
[2019-03-20] MEDS ORDERED: ROPIVACAINE 0.5% 5 MG/ML 30 ML VIAL ONE (06:23)
[2019-03-20] MEDS ORDERED: fentaNYL citrate 100 MCG/2 ML VIAL IV PRN (06:55)
[2019-03-20] MEDS ORDERED: ePHEDrine sulfate 50 MG/ML AMP IV PRN (06:55)
[2019-03-20] MEDS ORDERED: ATROPINE SULFATE 0.1 MG/ML 10ML SYR IV PRN (06:55)
[2019-03-20] MEDS ORDERED: ONDANSETRON INJ 2 MG/ML 2 ML VIAL IV PRN (06:55)
--- NOTE | 2019-03-20 06:55 | Anesthesiology Consultation ---
Date of Service March 20, 2019 Assessment & Plan (1) Encounter for pre-operative examination: Chart Review Chart Review: Acceptable Risk for Surgery Consults Requested none ASA ASA4 Proposed Anesthesia Anesthesia Type: General Regional Regional Laterality: Left Site: Interscalene Risk / Benefits Reviewed With: PT / POA / Parent / Guardian, Accepts Plan and Informed Consent Obtained History Surgery Operation Date: 03/19/19 12:35 Proposed Procedures p Left Reversed Total Shoulder Arthroplasty - Heath Sosa MD Operation Date: 03/20/19 07:15 Proposed Procedures p Left Reverse Total Shoulder Arthroplasty - Heath Sosa MD Height/Weight Height: 5 ft 1 in Weight: 84.7 kg Allergies Allergy/AdvReac Type Severity Reaction Status Date / Time adhesive Allergy Mild RASH & Verified 03/20/19 06:20 BLISTERS NSAIDS (Non-Steroidal AdvReac Intermediate ADVISED TO Verified 03/20/19 06:20 Anti-Inflamma AVOID DUE TO KIDNEY DISEASE morphine AdvReac Mild "SENSITIVITY"- Verified 03/20/19 06:20 "go crazy" Medications Home Medications Medication Instructions Recorded Confirmed Last Taken Lactobacillus acidophilus capsule 2 cap PO HS cap 07/11/18 03/19/19 03/18/19 20:00 aspirin 81 mg tablet,delayed 81 mg PO MONWEDFRI tab 07/11/18 03/19/19 03/17/19 20:00 release ferrous sulfate 325 mg (65 mg 325 mg PO QAM tab 07/11/18 03/19/19 03/18/19 08:00 iron) tablet folic acid 1 mg tablet 1 mg PO QAM 07/11/18 03/19/19 03/18/19 08:00 furosemide 40 mg tablet 40 mg PO QAM 07/11/18 03/19/19 03/18/19 07:00 metoprolol succinate ER 25 mg 37.5 mg PO BID tab 07/11/18 03/19/19 03/19/19 06:00 tablet,extended release 24 hr montelukast 10 mg tablet 10 mg PO QPM 07/11/18 03/19/19 03/18/19 20:00 nitroglycerin 0.4 mg sublingual 0.4 mg SL Q5M PRN 07/11/18 03/19/19 Unknown tablet ranitidine 150 mg capsule 150 mg PO QPM 08/03/19/19 03/18/19 20:00 warfarin 2 mg tablet 2 mg PO 4XWK tab 07/11/18 03/19/19 03/13/19 21:00 warfarin 4 mg tablet 4 mg PO 3XWK tab 07/11/18 03/19/19 03/12/19 21:00 fluticasone propionate [Flonase 1 spray INTRANASAL ONCE PRN 08/16/18 03/19/19 03/17/19 20:00 Allergy Relief] oxycodone-acetaminophen [Percocet] 1 tab PO Q6H #30 tab 08/24/18 03/19/19 Unknown enoxaparin [Lovenox] 80 mg SUBCUT DAILY 03/19/19 03/19/19 03/18/19 08:00 Active Medications Generic Name Dose Route Start Last Admin Trade Name Freq PRN Reason Stop Dose Admin Sodium Chloride 1,000 mls @ 15 mls/hr 03/19/19 14:58 03/19/19 15:37 Nss 1000ml IV 04/18/19 14:57 15 mls/hr .Q24H JEROMY Administration KVO Insulin Aspart 0 units 03/20/19 00:00 03/20/19 04:15 Novolog Flexpen SC 04/19/19 00:00 1 units Q4 JEROMY Administration Metoprolol Succinate 37.5 mg 03/19/19 21:00 03/19/19 20:46 Toprol Xl PO 04/18/19 20:59 37.5 mg BID JEROMY Administration Montelukast Sodium 10 mg 03/19/19 21:00 03/19/19 20:47 Singulair PO 04/18/19 20:59 10 mg QPM JEROMY Administration Ranitidine HCl 150 mg 03/19/19 21:00 03/19/19 20:47 Zantac PO 04/18/19 20:59 150 mg QPM JEROMY Administration NPO Date Last Intake of Fluids: 03/18/19 Time Last Intake of Fluids: 23:30 Last Intake of Fluids Comment: sip of water with med this am 0600 Date Last Intake of Solids: 03/18/19 Time Last Intake of Solids: 23:00 Past Medical History Medical History On home oxygen therapy 2/2 SARCOIDOSIS. O2 AT 2L PRN Atrial fibrillation Paroxysmal, then persistent with difficult to control rhythm and rate, ultimately requiring AV junction ablation and insertion of dual-chamber BiV pacer 05/2016 CAD (coronary artery disease) s/p MD and cath 2012, not amenable to PCI CHF (congestive heart failure) Right sided 2/2 elevated pulmonary pressures/sarcoidosis CKD (chronic kidney disease) stage 3, GFR 30-59 ml/min Cough Currently with exacerbation of underlying pulm issues. On Doxy with recent Prednisone course. Pre-op CXR 03/07 showed no acute disease. Seen by PCP 03/14 for f/u-- "cough appears much improved." GERD (gastroesophageal reflux disease) H/O acute myocardial infarction 2012 HTN (hypertension) History of diabetes mellitus, type II Diet controlled Hypercalcemia Hyperlipidemia HISTORY Obesity Obstructive sleep apnea on CPAP Sarcoidosis pulmonary and ocular involvement Spinal stenosis Exercise / Class Metabolic Activity III < 4 Walking/Shop/Light housework Past Family History Family History Grandfather No problems noted. Grandmother No problems noted. Aunt Family history of diabetes mellitus Grandmother (Paternal) Family history of diabetes mellitus Grandfather (Paternal) Family history of diabetes mellitus Past Surgical History Surgical History Status post reverse total arthroplasty of right shoulder History of repair of rotator cuff RT SHOULDER Fusion of spine T12-L5 (~2013) H/O cardiac radiofrequency ablation 2015 H/O tubal ligation History of cardiac cath 2012 History of carpal tunnel release BILATERAL History of colonoscopy S/P cardiac pacemaker procedure MED[employer]ON[employer] DEVICE/DR. RIDLEY CHECKS DEVICE APT 03/10/19 S/P rotator cuff repair 2012, complicated by post-op embolic MD, thrombus observed Total knee replacement status R knee (TOTAL OF 8 SURGERIES) Past Anesthesia History No Hx of Anesthesia Complications and No Family Hx of Anesthesia Complications R REVERSE TSA DONE AT [facility] 08/21/18. MAC 3, ETT 7.0, GRADE VIEW I. NO VITALS SIGNS IN ANESTHESIA PROGRESS NOTE, BUT SURGEON DISCHARGE SUMMARY NOTES HYPOXEMIA POST OP. PATIENT WAS EXTUBATED IN OR PER ANESTHESIA RECORD. 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 Chest X-Ray Date: 03/07/19 FINDINGS: Mild elevation right hemidiaphragm. This is a chronic finding. Bipolar cardiac pacemaker with leads in good position. Lungs are considered clear. There is a small fixed hiatal hernia. IMPRESSION: Chronic and postoperative change. No acute process. Echocardiogram Date: 11/07/17 EF: 55% There is normal left ventricular wall thickness. The left ventricular wall motion is normal. The LV The right ventricle is moderately dilated. The right ventricular systolic function is reduced as assessed by tricuspid annular plane systolic excursion (TAPSE) (TAPSE <1.6 cm). The left atrium is severely dilated. The right atrium is moderately dilated. Aortic valve sclerosis moderate, without significant aortic valvular stenosis. There is moderate mitral regurgitation. There is moderate to severe tricuspid regurgitation. Severe pulmonary hypertension is present. PASP = 65 mmHg Compared to prior study dated 05/18/2016, right ventricular dysfunction and pulmonary hypertension is now present. Cardiac Catheterization Date: 09/01/13 1. Acute anterior wall myocardial infarct with totally occluded LAD and diagonal branch. 2. Successful angioplasty of the LAD and diagonal branch. 3. Mild left ventricular systolic dysfunction. 4. Normal hemodynamics. 5. No aortic gradient, mitral regurgitation or mitral prolapse. RECOMMENDATION: In view of successful angioplasty patient will be treated medically with antiplatelet including Aspirin, Brilinta and Nitrate. Other Testing Pacer Check 03/10/19 Medtronic, implanted 05/19/[address] Gillespie Pacin.9% BiV paced Battery: 2.99 volts with estimated longevity of 3 years. Mode: DDDR. Impression: Normal dual chamber biventricular pacemaker function. Stable pacing and sensing thresholds. Laboratory Results 03/20/19 04:27 03/20/19 04:27 Blood Type A Positive 03/07/19 12:47 Antibody Screen NEGATIVE 03/07/19 12:47 PT 12.7 Seconds (9.0-12.0) H 03/19/19 10:48 INR 1.3 (0.9-1.1) H 03/19/19 10:48 APTT 30.0 Seconds (21.0-31.0) 03/19/19 10:48 Hemoglobin A1c 6.2 % (4.5-5.6) H 03/07/19 12:47 Urine Color Yellow 03/07/19 Unknown Urine Appearance Clear (Clear) 03/07/19 Unknown Urine pH 6.5 (4.5-7.5) 03/07/19 Unknown Ur Specific [place] 1.014 (1.000-1.030) 03/07/19 Unknown Urine Protein Negative (Negative) 03/07/19 Unknown Urine Glucose (UA) Negative (Negative) 03/07/19 Unknown Urine Ketones Negative (Negative) 03/07/19 Unknown Urine Nitrite Negative (Negative) 03/07/19 Unknown Ur Leukocyte Esterase Negative (Negative) 03/07/19 Unknown 03/20/19 03/19/19 03/19/19 04:12 22:59 20:39 POC Glucose 169 H 281 H 395 H* 03/19/19 20:37 POC Glucose 408 H*
[2019-03-20] MEDS ORDERED: fentaNYL citrate 100 MCG/2 ML VIAL ONE (07:05)
[2019-03-20] MEDS ORDERED: NEOSTIGMINE METHYLSULFATE 5 MG/5 ML SYR ONE (07:05)
[2019-03-20] MEDS ORDERED: ONDANSETRON INJ 2 MG/ML 2 ML VIAL ONE (07:05)
[2019-03-20] MEDS ORDERED: DEXAMETHASONE SOD INJ 4 MG/ML VIAL ONE (07:05)
[2019-03-20] MEDS ORDERED: PROPOFOL IV EMULSION 10 MG/ML 20 ML VIAL IV ONE (07:05)
[2019-03-20] MEDS ORDERED: MIDAZOLAM HCL 1 MG/ML 2ML VIAL ONE (07:05)
[2019-03-20] MEDS ORDERED: LIDOCAINE HCL 2% 2 ML VIAL/AMP(20MG/ML) INFIL ONE (07:05)
[2019-03-20] MEDS ORDERED: GLYCOPYRROLATE 0.2 MG/ML VIAL ONE (07:05)
[2019-03-20] MEDS ORDERED: VANCOMYCIN HCL 1 GM/270 ML BAG ONE (07:06)
[2019-03-20] MEDS ORDERED: ORTHO JOINT ANESTHETIC ONE (07:07)
[2019-03-20] MEDS ORDERED: POVIDONE-IODINE OP SOLN 30 ML BTL ONE (07:08)
[2019-03-20] MEDS ORDERED: BACITRACIN INJ 50,000 UNIT VIAL ONE (07:08)
--- NOTE | 2019-03-20 07:08 | History & Physical Bridge Note ---
Date of Service March 20, 2019 History & Physical Bridge Note I have examined the patient, reviewed the History & Physical and in the interval since the performance of the History & Physical I have noted the following changes of clinical significance: no changes noted
[2019-03-20] MEDS ORDERED: PHENYLEPHRINE HCL 10 MG/ML VIAL ONE (08:55)
[2019-03-20] MEDS ORDERED: LARYING-O-JET KIT (LTA) ONE (08:55)
[2019-03-20] MEDS ORDERED: PHENYLEPHRINE 100MCG/ML 5ML SYR ONE (08:55)
[2019-03-20] MEDS ORDERED: ROCURONIUM BROMIDE 10 MG/ML 5 ML VIAL ONE (08:55)
[2019-03-20] MEDS ORDERED: FUROSEMIDE 40 MG TAB PO SCH (09:00)
[2019-03-20] MEDS ORDERED: INSULIN GLARGINE SOLOSTAR 100 UNITS/ML 3 ML PEN SC SCH ×2 (09:00→16:30)
[2019-03-20] MEDS ORDERED: ALBUMIN HUMAN 5% 12.5 GM/250 ML VIAL IV ONE (10:16)
--- NOTE | 2019-03-20 10:22 | Post Operative Brief Note ---
Immediate Post Op Note v1 Date of Surgery March 20, 2019 Pre & Post Diagnosis Operation Date: 03/19/19 12:35 <No data on this case meets the specified criteria> Operation Date: 03/20/19 07:15 Pre-Op Diagnosis: Left Shoulder Rotator Cuff Arthropathy, advanced glenohumeral osteoarthritis with bone loss, retained hardware status post failed rotator cuff repair Post-Op Diagnosis: Same chronically ruptured biceps tendon Procedure Operation Date: 03/19/19 12:35 <No data on this case meets the specified criteria> Operation Date: 03/20/19 07:15 Actual Procedures p Left Reverse Total Shoulder Arthroplasty(Left), removal hardware (suture anchors and suture material, bone grafting greater tuberosity with humeral head autograft- Heath Sosa MD Surgeon Heath Sosa MD Embossing Press Operator Apprentice Jose M SCHULTZ Estimated Blood Loss 500 Findings Consistent with Post-Op Diagnosis Specimens Humeral head and suture anchors Drains Limon Catheter and Hemovac Drain Complications none Disposition Accompanied Patient To Recovery: No Disposition: Recovery Room Overlapping Procedure I was present for: the critical portions of procedure.
--- NOTE | 2019-03-20 10:30 | Pharmacy Report ---
Pharmacy Glycemic Short Note 2 - Date of Service March 20, 2019 - Glycemic Short BSG Results (Last 24 hours): 03/19/19 03/19/19 03/19/19 10:22 14:15 20:37 Glucose POC Glucose 116 H 132 H 408 H* 03/19/19 03/19/19 03/20/19 20:39 22:59 04:12 Glucose POC Glucose 395 H* 281 H 169 H 03/20/19 04:27 Glucose 174 H POC Glucose OUTPATIENT ANTIDIABETIC REGIMEN: * diet controlled * A1c = 6.2% 03/07/19 ASSESSMENT: * Type 2 diabetic admitted for L shoulder arthropathy * OR scheduled for this AM * Patient did experience severe hyperglycemia last evening. Cause of this uncertain. BSG did climb above 400. It appears Anesthesia did pull dexamethasone from the [facility] yesterday however their documentation is not in the chart or electronic record to determine if it had been administered before her OR case was cancelled yesterday. * It appears that Anesthesia pulled dexamethasone from the [facility] again this AM. I suspect she will become severely hyperglycemic after procedure if dexamethasone is the cause of yesterday's BSG elevation. * Will place orders for "low" stress basal insulin regimen this AM until details of periprocedural medications can be elucidated. Novolog doses will be based upon "moderate" stress level. PLAN FOR INPATIENT GLYCEMIC CONTROL: * Basal insulin * Lantus 10 units SQ BID (to re-eval needs post-op) * Bolus insulin * NovoLog per scale ACHS or Q6hrs while NPO * Goal Range: Low 110 mg/dL - High 140 mg/dL * Correction Factor: 30 mg/dL/unit * Nutritional / Prandial insulin per carb ratio of 1 unit per 10 grams CHO consumed PLAN FOR DISCHARGE: * resume dietary measures
--- NOTE | 2019-03-20 11:02 | XRay Report ---
XR shoulder LT min 2V routine HISTORY: 78 years-old Female Post shoulder surgery left shoulder total joint arthroplasty. COMPARISON: Chest radiographs 03/07/2019 TECHNIQUE: 2 views of the left shoulder FINDINGS: Reverse left shoulder total joint arthroplasty demonstrates satisfactory alignment without acute frac ture or retained foreign body identified. Demineralized appearance of the bones. Moderate AC joint os teoarthritis. Skin jorge with surgical drainage catheter noted along with expected postsurgical sof t tissue swelling and deep tissue air. Cardiomegaly with spinal fusion hardware and left pectoral pac er. IMPRESSION: Reverse left shoulder total joint arthroplasty demonstrates satisfactory alignment. The above report was generated using voice recognition software. It may contain grammatical, syntax o r spelling errors. Electronically signed by: Cade Nava M.D. 03/20/2019 11:00 AM
[2019-03-20] MEDS ORDERED: NALOXONE HCL 0.4 MG/1 ML VIAL/CARP IV PRN (11:51)
[2019-03-20] MEDS ORDERED: BISACODYL 10 MG SUPP PR PRN (11:51)
[2019-03-20] MEDS ORDERED: MAGNESIUM HYDROXIDE SUSP 30 ML UDC PO PRN (11:51)
--- NOTE | 2019-03-20 12:13 | Anesthesiology Progress Note ---
Date of Service March 20, 2019 Anesthesia Post Procedure Vital Signs Vital Signs: Temp Pulse Pulse Resp BP BP Pulse Ox 03/20/19 11:30 60 22 113/58 L 100 03/20/19 11:20 96.8 F L 60 24 125/65 100 03/20/19 11:10 60 19 120/59 L 100 03/20/19 11:00 60 20 125/68 99 03/20/19 10:50 61 20 107/58 L 100 03/20/19 10:41 97.0 F L 61 17 116/64 100 03/20/19 05:55 97.7 F 60 20 122/35 L 100 03/20/19 05:00 60 14 129/73 100 03/20/19 04:00 97.5 F L 60 14 133/76 100 03/20/19 03:00 60 13 109/62 98 03/20/19 02:00 60 14 103/59 L 99 03/20/19 01:01 60 17 123/65 100 03/20/19 00:10 97.5 F L 03/20/19 00:01 60 18 138/67 98 03/19/19 23:00 60 15 126/72 99 03/19/19 22:19 60 14 103/58 L 100 03/19/19 22:00 60 18 99 03/19/19 21:00 60 23 100 03/19/19 20:05 61 23 03/19/19 20:04 61 14 133/73 100 03/19/19 20:02 97.5 F L 03/19/19 20:00 60 21 98 03/19/19 19:00 60 17 97 03/19/19 18:00 64 18 95 03/19/19 17:00 61 21 98 03/19/19 16:00 60 17 98 03/19/19 15:00 100 03/19/19 14:59 99 03/19/19 14:58 97.9 F 16 125/65 97 03/19/19 14:43 97.2 F L 60 20 130/77 97 03/19/19 14:30 97.2 F L 60 20 129/76 99 03/19/19 14:20 60 19 123/72 99 03/19/19 14:10 60 28 H 129/68 100 03/19/19 14:03 98.2 F 61 16 140/82 94 Pain Intensity Left Elbow: Pain Intensity: 8 Transfer of Care Handoff Completed per policy Notes Mental Status: alert / awake / arousable and participated in evaluation Patient Amnestic to Procedure: Yes Nausea / Vomiting: adequately controlled Pain: adequately controlled Airway Patency, RR, SpO2: stable & adequate BP & HR: stable & adequate Hydration State: stable & adequate Anesthetic Complications: no major complications apparent and Pt Satisfied with anesthetic care
[2019-03-20] MEDS: METOPROLOL SUCC 25MG EXT REL TAB PO SCH ×2 (13:03→21:35)
[2019-03-20] MEDS: CEFAZOLIN 2000MG 2,000 MG/15 ML SYR IV SCH ×2 (13:06→21:46)
--- NOTE | 2019-03-20 13:30 | Consultation ---
Date of Consultation March 20, 2019 Assessment & Plan (1) Shoulder joint replacement status: 78 y/o F with an extensive and complex medical history including sarcoidosis, CAD, CHF, CKD II - III, ELISEO, spinal stenosis, HTN, DM II, Chronic AF, pacemaker, severe osteoarthritis. Presented for elective L total shoulder replacement. The pt is recovering well in the post-op period. She denies CP, SOB, nausea, vomiting, fevers or excessive pain at the surgical site. 1) Post - op - no acute complication - asymptomatic - tolerating PO. resume anticoagulation when possible. Pain is presently well-controlled 2) CAD - no evidence of ACS - cont anticoagulation when possible, ASA, B reynold, NTG as needed 3) Sarcoid with lung involvement - cont daily Montelukast 4) CKD - maintain volume status - hold Lasix pending AM eval and labs 5) DM II - diet controlled - recently high glu - does not want insulin but would recommend a sliding scale if needed 6) AF - Resume warfarin when possible - bridge with Lovenox - B reynold for rate 7) CHF - Euvolemic on initial eval - resume Lasix AM if labs WNL and there is no post-op hypotension. Cont Metoprolol. Total time for this consult including review of labs, meds, records - discussion with pt and review of surgery notes - 40 min Present on Admission?: Yes History of Present Illness Requesting Physician: Ian Reason for Consultation: Post-op L total shoulder - multiple complex medical issues Attending Physician: Heath Sosa MD History of Present Illness 78 y/o F with an extensive and complex medical history including sarcoidosis, CAD, CHF, CKD II - III, ELISEO, spinal stenosis, DM II, HTN, Chronic AF, pacemaker, severe osteoarthritis. Presented for elective L total shoulder replacement. The pt is recovering well in the post-op period. She denies CP, SOB, nausea, vomiting, fevers or excessive pain at the surgical site. PMH: 1) CHF - an echo in 2017 reports impared RV systolic finction, normal LV function, severe TR 2) Severe pulmonary hypertension 3) Sarcoidosis 4) DM II - diet controlled - recent A1C 6.2 5) CKD II - III 6) CAD - [place] 2013 7) Pacer for AF 8) HTN 9) Spinal stenosis 10) Osteoarthritis 11) Obese Surgery: 1) Spinal fusion T12-L5 2) R TKR followed by 7 revisions 3) R total shoulder 08/2018 4) BL carpal release 5) Pacer due to AF Social: No history of smoking. rarely drinks - ambulates independently and maintains full independence. Family: Mother due to sepsis Was not in touch with her father Allergies Allergy/AdvReac Type Severity Reaction Status Date / Time adhesive Allergy Mild RASH & Verified 03/20/19 06:20 BLISTERS NSAIDS (Non-Steroidal AdvReac Intermediate ADVISED TO Verified 03/20/19 06:20 Anti-Inflamma AVOID DUE TO KIDNEY DISEASE morphine AdvReac Mild "SENSITIVITY"- Verified 03/20/19 06:20 "go crazy" Home Medications Home Medications Medication Instructions Recorded Confirmed Type Lactobacillus acidophilus capsule 2 cap PO HS cap 07/11/18 03/19/19 History aspirin 81 mg tablet,delayed 81 mg PO MONWEDFRI tab 07/11/18 03/19/19 History release ferrous sulfate 325 mg (65 mg 325 mg PO QAM tab 07/11/18 03/19/19 History iron) tablet folic acid 1 mg tablet 1 mg PO QAM 07/11/18 03/19/19 History furosemide 40 mg tablet 40 mg PO QAM 07/11/18 03/19/19 History metoprolol succinate ER 25 mg 37.5 mg PO BID tab 07/11/18 03/19/19 History tablet,extended release 24 hr montelukast 10 mg tablet 10 mg PO QPM 07/11/18 03/19/19 History nitroglycerin 0.4 mg sublingual 0.4 mg SL Q5M PRN 07/11/18 03/19/19 History tablet ranitidine 150 mg capsule 150 mg PO QPM 07/11/18 03/19/19 History warfarin 2 mg tablet 2 mg PO 4XWK tab 07/11/18 03/19/19 History warfarin 4 mg tablet 4 mg PO 3XWK tab 07/11/18 03/19/19 History fluticasone propionate [Flonase 1 spray INTRANASAL ONCE PRN 08/16/18 03/19/19 History Allergy Relief] oxycodone-acetaminophen [Percocet] 1 tab PO Q6H #30 tab 08/24/18 03/19/19 Rx enoxaparin [Lovenox] 80 mg SUBCUT DAILY 03/19/19 03/19/19 History Patient History Medical History On home oxygen therapy 2/2 SARCOIDOSIS. O2 AT 2L PRN Atrial fibrillation Paroxysmal, then persistent with difficult to control rhythm and rate, ultimately requiring AV junction ablation and insertion of dual-chamber BiV pacer 05/2016 CAD (coronary artery disease) s/p [place] and cath 2012, not amenable to PCI CHF (congestive heart failure) Right sided 2/2 elevated pulmonary pressures/sarcoidosis CKD (chronic kidney disease) stage 3, GFR 30-59 ml/min Cough Currently with exacerbation of underlying pulm issues. On Doxy with recent Prednisone course. Pre-op CXR 03/07 showed no acute disease. Seen by PCP 03/14 for f/u-- "cough appears much improved." GERD (gastroesophageal reflux disease) H/O acute myocardial infarction 2012 HTN (hypertension) History of diabetes mellitus, type II Diet controlled Hypercalcemia Hyperlipidemia HISTORY Obesity Obstructive sleep apnea on CPAP Sarcoidosis pulmonary and ocular involvement Spinal stenosis Surgical History Status post reverse total arthroplasty of right shoulder History of repair of rotator cuff RT SHOULDER Fusion of spine T12-L5 (~2013) H/O cardiac radiofrequency ablation 2015 H/O tubal ligation History of cardiac cath 2012 History of carpal tunnel release BILATERAL History of colonoscopy S/P cardiac pacemaker procedure [employer] DEVICE/DR. RIDLEY CHECKS DEVICE APT 03/10/19 S/P rotator cuff repair 2012, complicated by post-op embolic IN, thrombus observed Total knee replacement status R knee (TOTAL OF 8 SURGERIES) Family History Grandfather No problems noted. Grandmother No problems noted. Aunt Family history of diabetes mellitus Grandmother (Paternal) Family history of diabetes mellitus Grandfather (Paternal) Family history of diabetes mellitus Social History Preferred Language: Swiss Communication Ability: Effective Visual Impairment: No Limitations Layout Man Required: No Beliefs That Will Affect Care: None marital status: / Current Living Situation: Alone Other Information That Helps Us Care for You: No Feels Safe at Home: Yes Safety Concerns: Feels Safe At This Time Smoking Status: Never smoker Do You Dip or Chew Tobacco: No Second Hand Exposure: Yes ("YEARS AGO") Tobacco Cessation Education Requested by Patient: No Hx Alcohol Use: Yes Alcohol type: hard liquor Hx Substance Use: No Review of Systems Review of Systems: Gen: Denies fevers, night sweats, rigors, fatigue, malaise, weight loss/gain ENT: Denies congestion, throat pain, hearing loss Eyes: Denies acute visual changes CV: Denies CP, palpitations Pulmonary: Denies SOB, cough, wheezing GI: Denies N/V, diarrhea, constipation Neuro: Denies acute or unilateral weakness, acute gait impairment, headache or acute visual changes Musculoskeletal: She denies any pain at the time of evaluation Endocrine: Denies polydipsia, polyuria Skin: Denies acute rashes or ulcers Physical Exam Physical Exam: General: Pleasant, elderly F in good spirits, AAO x 3, no distress ENT: No erythema or exudates, no thrush Eyes: ALCIDES, EOMI Head and neck: Normocephalic, atraumatic, No JVD, neck is supple. Chest/heart: Nontender, S1,2, RRR, faint Lungs: CTAB, no wheezing or crackles Abdomen: Nontender, nondistended, BS+ Neuro: AAO x 3, speech is clear, no unilateral weakness or loss of sensation, coordination intact Musculoskeletal: No joint inflammation, muscle tenderness, FROM - L shoulder splinted and with drain Skin: No acute rashes or ulcers Extremities: No clubbing, cyanosis, edema - pulses + in upper and lower ext Results & Data Vital Signs (Past 12 Hours) Vital Signs Temp Pulse Pulse Pulse Resp BP BP 03/20/19 12:58 59 L 58 L 16 96/59 L 03/20/19 12:22 97.3 F L 16 102/58 L 03/20/19 11:45 97.5 F L 61 18 102/65 03/20/19 11:30 60 22 113/58 L 03/20/19 11:20 96.8 F L 60 24 125/65 03/20/19 11:10 60 19 120/59 L 03/20/19 11:00 60 20 125/68 03/20/19 10:50 61 20 107/58 L 03/20/19 10:41 97.0 F L 61 17 116/64 03/20/19 05:55 97.7 F 60 20 122/35 L 03/20/19 05:00 60 14 129/73 03/20/19 04:00 97.5 F L 60 14 133/76 03/20/19 03:00 60 13 109/62 03/20/19 02:00 60 14 103/59 L Pulse Ox 03/20/19 12:58 98 03/20/19 12:22 100 03/20/19 11:45 99 03/20/19 11:30 100 03/20/19 11:20 100 03/20/19 11:10 100 03/20/19 11:00 99 03/20/19 10:50 100 03/20/19 10:41 100 03/20/19 05:55 100 03/20/19 05:00 100 03/20/19 04:00 100 03/20/19 03:00 98 03/20/19 02:00 99
[2019-03-20] MEDS: SODIUM CHLORIDE 0.9% 1000ML 1,000 ML IV SCH (14:06)
--- NOTE | 2019-03-20 15:33 | Operative Report ---
Post Operative Report Pre & Post Diagnosis Operation Date: 03/19/19 12:35 <No data on this case meets the specified criteria> Operation Date: 03/20/19 07:15 Pre-Op Diagnosis: Left Shoulder Rotator Cuff Arthropathy, advanced glenohumeral osteoarthritis with bone loss, failed rotator cuff repair Post-Op Diagnosis: Same, chronic ruptured biceps tendon, retained hardware with multiple suture anchors and greater tuberosity cysts around anchors with bone loss. Procedure Operation Date: 03/19/19 12:35 <No data on this case meets the specified criteria> Operation Date: 03/20/19 07:15 Actual Procedures p Left Reverse Total Shoulder Arthroplasty(Left), removal hardware (suture anchors and suture material, bone graft greater tuberosity humeral head autograft.- Heath Sosa MD Surgeon Heath Sosa MD Publications Sales Representative Jose M SCHULTZ Estimated Blood Loss 500 Findings Consistent with Post-Op Diagnosis Specimens Humeral head and multiple suture anchors Drains 2 Hemovac Anesthesia Type General Regional Complications none Disposition Accompanied Patient To Recovery: No Disposition: Recovery Room Indications 78-year-old female with long-standing history of chronic left shoulder pain history of rotator cuff repair in the past which went on to fail. Patient developed rotator cuff arthropathy patient developed chronic wear and tear glenohumeral joint due to rotator cuff arthropathy now has substantial bone loss in the glenoid. Description of Procedure The patient was identified taken to the operating room and anesthetized under regional block and general anesthetic. The patient was positioned on the operating table in a 30 beachchair position with a towel roll under the medial border of the left scapula. The arm was draped free to be able to manipulate the shoulder as needed. The left upper extremity was prepped and draped in usual sterile fashion. Initially we had to place a magnet and tapered over her pacemaker which was on the ipsilateral side. It was relatively low along her breast area so it was able to be draped out of the operative field. Exam demonstrated marked crepitation with range of motion but maintain flexibility of the shoulder with passive forward elevation 160 degrees and external rotation of 80 degrees. An anterior deltopectoral approach was performed. A longitudinal incision was made in the deltopectoral interval. The skin was incised sharply. Subcutaneous flaps were elevated off the fascia. The cephalic vein was dissected out and retracted lateral with the deltoid. The clavipectoral fascia was divided at the lateral margin of the conjoined tendon and extended up to the CA ligament. The following findings were noted: There was a large bursal collection overlying the rotator cuff. The supraspinatus tendon was torn and retracted. The interspace port of the repair was still intact. The subscapularis had tendinopathy but was still intact. The biceps tendon was torn retracted and absent. There is severe glenohumeral DJD. There was posterior superior bone loss of the glenoid with substantial bone loss posterior superiorly completely [id number] eburnated bone both surfaces of the joint. There is retained suture material some torn sutures but anchors were still in the bone with failed rotator cuff repair. The upper centimeter of the pectoralis was released for inferior exposure. The subscapularis tendon was taken down off the lesser tuberosity using a subperiosteal dissection. A #1 Vicryl traction suture was placed into the free end of the subscapularis tendon and capsule. The subscapular muscle fibers were split longitudinally at the level of the circumflex vessels. The circumflex vessels were identified and tied off with silk ties and divided laterally. A Kitner elevator was used to free up the inferior fibers of the subscapularis off of the capsule. The axillary nerve was identified with a tug test and protected with a blunt Emilia retractor between the nerve and the capsule. The subscapularis tendon was then taken down off of the lesser tuberosity subperiosteally and subperiosteal dissection was performed along the neck of the humerus as the arm is gradually actually rotated exposing the humeral head. Retractors were readjusted and the inferior osteophytes were all resected using a ronguer. A Rudd elevator was used to assist in releasing the capsule of the neck of the humerus. The capsule was divided with Laureano scissors down to the glenoid released off the anterior glenoid and the rotator interval was released to meet the capsular release and a 360 release of the subscapularis was accomplished. A Fukuda retractor was placed into the joint retracting the karthikeyan ral head posterior. Glenoid findings demonstrated marked posterior superior wear with large anterior osteophyte. The labrum remnants were resected. an anterior-inferior and posterior inferior capsular release were performed with electrocautery and a Rudd elevator on bone with the axillary nerve protected inferiorly by the retractor. Attention was then taken to the humeral preparation. The cutting guide was placed into the humeral head. It was positioned at 20 of retroversion. Oscillating saw was used to resect the humeral head giving the cut above the level of the posterior rotator cuff insertion site. On signing off the head we encountered the old anchors. The peek anchors and associated suture material were removed. There was some cystic cavities around the anchors which were curetted out. Although suture material was removed and all the anchors were removed. The humerus was then prepared for the stem. I used the ascend flex stem from [employer]. The sizing broaches were used followed by trial broaches up to a size 4B long which had the appropriate fit and fill. The appropriate sized cut protector was placed. The humerus was then retracted posterior to the glenoid. The glenoid was sized for a 25 baseplate with full wedge based on blueprint preoperative templating per CT scan with PSI guide custom made.. The guide for the baseplate was positioned and the central drill hole was made. The reamer for the baseplate was used. The reamer for the central boss was used. The depth gauge was used to measure for the central screw. The 25 mm full wedge [employer] perform glenoid baseplate was screwed into position. The base plate was transfixed with superior and inferior and posterior locking screws and anterior compression screw positioned opposite to the wedge with stable fixation. The fan reamer was used for the 39 millimeter glenoid sphere. After irrigation the 39 mm +3 eccentric trial glenoid sphere was impacted onto the baseplate and the screw was tightened. Attention was taken back to the humerus. The cut protector was removed and the +0 high offset humeral tray trial was assembled to the trial stem rotated appropriately to get bony coverage and then screwed in position. A trial reduction was performed. A +6 trial insert demonstrated good stability and no shuck. The trials were removed. The final 39+3 mm eccentric glenoid sphere was assembled onto the glenoid baseplate with impaction placing the eccentric offset anterior inferiorly and the screw tightened. 3 drill holes are made into the harder bone in the bicipital groove area and 3 #5 FiberWire sutures were placed transosseously. The canal was irrigated with antibiotic solution with bacitracin. The final humeral component was assembled. The final component was 4B long 104 mm stem assembled to the plus or high offset humeral tray assembled to the 39+6 polyethylene insert. First the cystic areas that were curetted and where the suture anchors were removed was bone grafted with humeral head cancellus autograft. The stem was then impacted into the humerus with a tight press-fit. It was reduced to the glenoid sphere. Stability was verified. Subscapularis was repaired with the #5 FiberWire sutures using Lit-Hamilton suture technique. Lateral row soft tissue repair was performed with #2 FiberWire [id number] sutures. The pectoralis was repaired with #2 F iberWire [id number] sutures. The arm was taken through a range of motion which demonstrated 160 forward elevation 90 degrees abduction and 70 degrees of external rotation. The implant was stable through the range of motion tested. The wound was copiously irrigated. 2 Hemovac drains were placed. The deltopectoral interval was closed with [id number] #1 Vicryl sutures. The subcutaneous tissues were closed with 2-0 Vicryl sutures. The skin was closed with jorge. Sterile dressings were applied and a shoulder immobilizer. Jose M SCHULTZ my physician dental assistant teacher assisted in the procedure to the entire procedure including patient positioning arm positioning prepping and draping soft tissue retraction instrument management suture management and performed the subcutaneous and skin closure and will participate in the postoperative care of the patient. I attest to the content of the Intraoperative Record and any orders documented therein. Any exceptions are noted below.
[2019-03-20] MEDS: WARFARIN SOD 5 MG TAB PO SCH (16:37)
[2019-03-20] MEDS: FERROUS GLUCONATE 324 MG TAB PO SCH (18:00)
[2019-03-20] MEDS: SENNA 8.6 MG TAB PO SCH ×2 (21:19→21:46)
[2019-03-20] MEDS: DOCUSATE SODIUM 100 MG CAP PO SCH (21:20)
[2019-03-20] MEDS: MONTELUKAST SODIUM 10 MG TABLET PO SCH (21:20)
[2019-03-21] MEDS: SODIUM CHLORIDE 0.9% 1000ML 1,000 ML IV SCH ×2 (01:39→18:30)
[2019-03-21] MEDS ORDERED: OXYCODONE HCL IR 5 MG TAB (IMMEDIATE RELEASE) PO PRN (03:34)
[2019-03-21] MEDS: INSULIN ASPART 100 UNITS/ML 3 ML PEN SC SCH ×5 (03:45→21:31)
[2019-03-21 06:56] LABS: INR 1.2 (0.9-1.1); Prothrombin Time 12.6 Seconds (9.0-12.0)
[2019-03-21 06:57] LABS: Eosinophils # (auto) 0.03 K/uL (0-0.5); Eosinophils % (auto) 0.3 %; Hematocrit (blood only) 25.8 % (37-47); Hemoglobin 8.6 g/dL (12.0-16.0); Immature Granulocytes # (auto) 0.03 K/uL (0.00-0.02); Immature Granulocytes % (auto) 0.3 %; Lymphocytes # (auto) 2.42 K/uL (1.2-3.4); Lymphocytes % (auto) 21.5 %; Mean Corpuscular Hgb Conc 33.3 g/dL (32-36); Mean Platelet Volume 11.1 fL (7.4-10.4); Monocytes # (auto) 2.47 K/uL (0.11-0.59); Neutrophils % (auto) 55.9 %; Platelet Count 197 K/uL (130-400); RDW Coefficient of Variation 15.4 % (11.5-14.5); RDW Standard Deviation 55.4 fL (36.4-46.3); Red Blood Count 2.58 M/uL (4.2-5.4); White Blood Count 11.25 K/uL (4.8-10.8)
[2019-03-21 07:21] LABS: BUN Creatinine Ratio 20.6 (10-20); Calcium 8.4 mg/dl (8.5-10.1); Creatinine Clr Calc Pharmacy 15.8 ml/min; Est GFR (African American) 34.1; Est GFR (Non-African American) 29.4; Potassium 3.9 mmol/L (3.5-5.1)
[2019-03-21] MEDS: MULTIVITAMIN TAB PO SCH (09:27)
[2019-03-21] MEDS: DOCUSATE SODIUM 100 MG CAP PO SCH ×2 (09:27→20:21)
[2019-03-21] MEDS: FERROUS GLUCONATE 324 MG TAB PO SCH ×2 (09:29→15:57)
[2019-03-21] MEDS: METOPROLOL SUCC 25MG EXT REL TAB PO SCH (09:30)
[2019-03-21] MEDS ORDERED: TRAMADOL HCL 50 MG TABLET PO PRN (14:12)
--- NOTE | 2019-03-21 14:22 | Orthopedic Progress Note ---
Date of Service March 21, 2019 Assessment & Plan (1) Status post reverse total arthroplasty of left shoulder: Minimal PT and OT protocol per Dr. Sosa's reverse total shoulder protocol. Continue DVT prophylaxis with SCDs, MINDY hose, warfarin with enoxaparin bridging. Pain management-patient is agreeable to stop her oxycodone and try tramadol 1 to 2 tablets every 4 hours as needed pain. We will see if this helps with her nausea. Acute blood loss anemia. Follow H&H for now. BUN and creatinine have elevated likely due to dehydration and GARFIELD. Will restart her fluids and give gentle hydration overnight. DC planning-patient is planning on home health services. Subjective Patient is postop day 1 status post left reverse total shoulder arthroplasty. She is currently lying in bed. She states she has been nauseous most of the day. She has not vomited. She denies shortness of breath, chest pain, lightheadedness. She feels it may be secondary to narcotics and other medications she may be taking. She states that she had her dinner last night which did not agree with her. Since that time she has been having some nausea. She denies overt abdominal pain but feels somewhat sore across the top of the abdomen. She states that she is not passing flatus at this time. Her pain is controlled currently. Physical Exam Physical Exam: Dressings are clean, dry, intact. Hemovac drainage is down to 5 mL's. She is able to move the hand and fingers quite well with good right wrist range of motion. Neurovascular intact. Bowel sounds are present and active. Abdomen is soft and nondistended. She has some mild tenderness in the upper quadrants. Results & Data Vital Signs (Past 12 Hours) Vital Signs Temp Pulse Pulse Resp BP Pulse Ox 03/21/19 12:00 36.8 C 60 20 100/68 100 03/21/19 08:00 37 C 60 20 108/60 99 03/21/19 03:38 36.9 C 59 L 14 109/66 100 Laboratory Results Laboratory Results WBC 11.25 K/uL (4.8-10.8) H 03/21/19 06:21 RBC 2.58 M/uL (4.2-5.4) L 03/21/19 06:21 Hgb 8.6 g/dL (12.0-16.0) L D 03/21/19 06:21 Hct 25.8 % (37-47) L 03/21/19 06:21 MCV 100.0 fL (80-100) 03/21/19 06:21 MCH 33.3 pg (25-34) 03/21/19 06:21 MCHC 33.3 g/dL (32-36) 03/21/19 06:21 RDW Std Deviation 55.4 fL (36.4-46.3) H 03/21/19 06:21 RDW Coeff of Demetrio 15.4 % (11.5-14.5) H 03/21/19 06:21 Plt Count 197 K/uL (130-400) 03/21/19 06:21 MPV 11.1 fL (7.4-10.4) H 03/21/19 06:21 Immature Gran % (Auto) 0.3 % 03/21/19 06:21 Neut % (Auto) 55.9 % 03/21/19 06:21 Lymph % (Auto) 21.5 % 03/21/19 06:21 [place] % (Auto) 22.0 % 03/21/19 06:21 Eos % (Auto) 0.3 % 03/21/19 06:21 Baso % (Auto) 0.0 % 03/21/19 06:21 Immature Gran # (Auto) 0.03 K/uL (0.00-0.02) H 03/21/19 06:21 Neut # (Auto) 6.30 K/uL (1.4-6.5) 03/21/19 06:21 Lymph # (Auto) 2.42 K/uL (1.2-3.4) 03/21/19 06:21 [place] # (Auto) 2.47 K/uL (0.11-0.59) H 03/21/19 06:21 Eos # (Auto) 0.03 K/uL (0-0.5) 03/21/19 06:21 Baso # (Auto) 0.00 K/uL (0-0.2) 03/21/19 06:21 PT 12.6 Seconds (9.0-12.0) H 03/21/19 06:21 INR 1.2 (0.9-1.1) H 03/21/19 06:21 APTT 30.0 Seconds (21.0-31.0) 03/19/19 10:48 PTT Ratio 1.1 03/19/19 10:48 Sodium 138 mmol/L (136-145) 03/21/19 06:21 Potassium 3.9 mmol/L (3.5-5.1) 03/21/19 06:21 Chloride 103 mmol/L (98-107) 03/21/19 06:21 Carbon Dioxide 29 mmol/L (21-32) 03/21/19 06:21 Anion Gap 6.0 (3-11) 03/21/19 06:21 BUN 34 mg/dl (7-18) H 03/21/19 06:21 Creatinine 1.66 mg/dl (0.6-1.2) H D 03/21/19 06:21 Est Cr Clr Drug Dosing 15.8 ml/min 03/21/19 06:21 Est GFR ( Amer) 34.1 03/21/19 06:21 Est GFR (Non-Af Amer) 29.4 03/21/19 06:21 BUN/Creatinine Ratio 20.6 (10-20) H 03/21/19 06:21 Glucose 110 mg/dl (70-99) H 03/21/19 06:21 POC Glucose 144 (70-99) H 03/21/19 12:26 Estimat Average Glucose 131 mg/dl 03/07/19 12:47 Hemoglobin A1c 6.2 % (4.5-5.6) H 03/07/19 12:47 Calcium 8.4 mg/dl (8.5-10.1) L 03/21/19 06:21 Urine Color Yellow 03/07/19 Unknown Urine Appearance Clear (Clear) 03/07/19 Unknown Urine pH 6.5 (4.5-7.5) 03/07/19 Unknown Ur Specific [place] 1.014 (1.000-1.030) 03/07/19 Unknown Urine Protein Negative (Negative) 03/07/19 Unknown Urine Glucose (UA) Negative (Negative) 03/07/19 Unknown Urine Ketones Negative (Negative) 03/07/19 Unknown Urine Blood Negative (Negative) 03/07/19 Unknown Urine Nitrite Negative (Negative) 03/07/19 Unknown Urine Bilirubin Negative (Negative) 03/07/19 Unknown Urine Urobilinogen Negative (Negative) 03/07/19 Unknown Ur Leukocyte Esterase Negative (Negative) 03/07/19 Unknown Blood Type A Positive 03/07/19 12:47 Antibody Screen NEGATIVE 03/07/19 12:47
[2019-03-21] MEDS ORDERED: SODIUM CHLORIDE 0.9% 1000ML 500 ML IV ONE ×2 (14:38→17:42)
[2019-03-21] MEDS ORDERED: SODIUM CHLORIDE 0.9% 1000ML 1,000 ML IV SCH (14:45)
[2019-03-21] MEDS ORDERED: PROCHLORPERAZINE 10 MG in SYRINGE 8 ML IV PRN (15:00)
--- NOTE | 2019-03-21 15:23 | Hospitalist Progress Note ---
Date of Service March 21, 2019 Assessment & Plan (1) Shoulder joint replacement status: - Completed on 03/20/19, POD#1. - Pain control per primary team. - DVT ppx: resume home Coumadin, bridging with Lovenox BID. - PT/OT ordered. (2) Low urine output: - Removed lawson this morning, bladder scanned for 3 ml this afternoon. - May be related to dehydration -- will give 500 cc bolus. - Repeat BMP this evening to evaluate for worsening renal function. (3) Acute kidney injury: - Creatinine increased to 1.66; baseline ~1.2-1.3. - Will give 500 cc bolus this afternoon. - Repeat BMP this evening. - Holding home Lasix 40 mg PO daily. (4) Stage III chronic kidney disease: - Renally dose all meds. (5) Acute anemia: - Significant drop in hemoglobin, 8.6 this morning. - Likely related to acute blood loss intra-op. - Will repeat CBC this evening. - Ferrous gluconate 324 mg BID. (6) Type 2 diabetes mellitus: - Hemoglobin A1C was 6.2. - SSI coverage ordered. (7) CAD (coronary artery disease): - [place] in 2012 ([place] following shoulder surgery. - Continue Metoprolol 37.5 mg BID as prescribed. (8) Atrial fibrillation: - S/p AV junction ablation and insertion of dual chamber/bi-ventricular pacemaker in May 2016. - Continue Metoprolol 37.5 mg BID as prescribed. - Resumed Warfarin post op -- INR is currently subtherapeutic, monitor qAM. - Bridging with Lovenox BID. (9) Sarcoidosis: - Will monitor. (10) Chronic respiratory failure with hypoxia: - Chronically requires 2L via NC at home in setting of sarcoidosis. (11) Chronic congestive heart failure: - Most recent TTE in Oct 2017 showed EF 55%, reduced right systolic function. - Monitor net I/Os and daily weights. - Continue BB as prescribed; holding home Lasix in setting of GARFIELD. (12) Obstructive sleep apnea: - Wears CPAP qhs. (13) Hypertension: - Continue BB as prescribed. - Holding home Lasix in setting of GARFIELD. (14) Hyperlipidemia: - Not currently on statin therapy. (15) Pulmonary HTN: - Severe pulm HTN noted on TTE in 2017. - Requires 2L via NC chronically. (16) Valvular heart disease: - Moderate mitral regurg and severe tricuspid regurg noted on TTE in Oct 2017. (17) Obesity: - BMI 35 - encourage weight loss and exercise. (18) DVT prophylaxis: - Lovenox and Coumadin. Dispo: Will continue to follow, please call with any questions. Supervising Physician Co-Signing Physician Notes Attending attestation - Chart reviewed in detail, and care plan d/w PA Roselyn Waller. I agree w/ the tidwell components of her documentation. 78yo female s/p left total shoulder replacement. Thus far course complicated by oliguria due to acute kidney injury, low-normal BPs, and acute blood loss anemia. Agree with repeat BMP later today and fluids as necessary to maintain normal BPs. Serial h/h's. She may need PRBCs in setting of relative hypotension and acute kidney injury. Our team will continue to follow. Leonel Lorenzo MD Subjective Pt. is very nauseous this afternoon -- received Zofran without any improvement. Will trial Compazine IV prn. Last BM was 2 days ago; she is not passing gas but denies hard abdomen, bloating. Lawson was removed this morning, has not voided yet today. Was bladder scanned for 3 ml -- will give 500 cc bolus and evaluate creatinine level at 5:45 pm. She has h/o sarcoidosis, takes Lasix at home (held this morning). Will need to monitor volume status closely. Hemoglobin trending down, large intra op blood loss. Will also repeat CBC this evening. She has a chronic cough in setting of sarcoidosis, no increase in cough. Review of Systems Review of Systems: All systems reviewed & are unremarkable except as noted in HPI & below Constitutional: + fatigue, + weakness and + anorexia; no fever and no chills Respiratory: + cough; no dyspnea, no dyspnea on exertion, no sputum production and no wheezing Cardiovascular: no chest pain, no palpitations, no lightheadedness, no syncope and no edema Gastrointestinal: + abdominal pain, + nausea and + constipation; no vomiting and no diarrhea/loose stools Genitourinary: + difficulty urinating Musculoskeletal: no back pain and no joint pain Integumentary: no non-healing lesions Allergy / Immunological: no rash Physical Exam Physical Exam: General: Resting comfortably in no apparent distress; A&OX3 HEENT: NC/AT; PERRLA with EOMI; [place] conjunctiva, MMM. No erythema of posterior pharynx Neck: Supple and nontender Cardiac: RRR Lungs: on 2L via NC; scattered rhonchi and wheezing noted throughout all lung tsai. Abdomen: Bowel normoactive X 4; Tenderness to light palpation over majority of abdomen. Extremities: Warm. No edema present Neuro: No focal weakness Skin: No rash Results & Data Vital Signs (Past 12 Hours) Vital Signs Temp Pulse Pulse Resp BP Pulse Ox 03/21/19 12:00 36.8 C 60 20 100/68 100 03/21/19 08:00 37 C 60 20 108/60 99 03/21/19 03:38 36.9 C 59 L 14 109/66 100 Laboratory Results 03/21/19 03/21/19 03/21/19 Range/Units 12:26 09:26 06:21 WBC (4.8-10.8) K/uL RBC (4.2-5.4) M/uL Hgb (12.0-16.0) g/dL Hct (37-47) % MCV (80-100) fL MCH (25-34) pg MCHC (32-36) g/dL RDW Std Deviation (36.4-46.3) fL RDW Coeff of Demetrio (11.5-14.5) % Plt Count (130-400) K/uL MPV (7.4-10.4) fL Immature Gran % (Auto) % Neut % (Auto) % Lymph % (Auto) % [place] % (Auto) % Eos % (Auto) % Baso % (Auto) % Immature Gran # (Auto) (0.00-0.02) K/uL Neut # (Auto) (1.4-6.5) K/uL Lymph # (Auto) (1.2-3.4) K/uL [place] # (Auto) (0.11-0.59) K/uL Eos # (Auto) (0-0.5) K/uL Baso # (Auto) (0-0.2) K/uL PT (9.0-12.0) Seconds INR (0.9-1.1) Sodium 138 (136-145) mmol/L Potassium 3.9 (3.5-5.1) mmol/L Chloride 103 (98-107) mmol/L Carbon Dioxide 29 (21-32) mmol/L Anion Gap 6.0 (3-11) BUN 34 H (7-18) mg/dl Creatinine 1.66 H D (0.6-1.2) mg/dl Est Cr Clr Drug Dosing 15.8 ml/min Est GFR ( Amer) 34.1 Est GFR (Non-Af Amer) 29.4 BUN/Creatinine Ratio 20.6 H (10-20) Glucose 110 H (70-99) mg/dl POC Glucose 144 H 102 H (70-99) Calcium 8.4 L (8.5-10.1) mg/dl 03/21/19 03/21/19 03/21/19 Range/Units 06:21 06:21 03:29 WBC 11.25 H (4.8-10.8) K/uL RBC 2.58 L (4.2-5.4) M/uL Hgb 8.6 L D (12.0-16.0) g/dL Hct 25.8 L (37-47) % MCV 100.0 (80-100) fL MCH 33.3 (25-34) pg MCHC 33.3 (32-36) g/dL RDW Std Deviation 55.4 H (36.4-46.3) fL RDW Coeff of Demetrio 15.4 H (11.5-14.5) % Plt Count 197 (130-400) K/uL MPV 11.1 H (7.4-10.4) fL Immature Gran % (Auto) 0.3 % Neut % (Auto) 55.9 % Lymph % (Auto) 21.5 % [place] % (Auto) 22.0 % Eos % (Auto) 0.3 % Baso % (Auto) 0.0 % Immature Gran # (Auto) 0.03 H (0.00-0.02) K/uL Neut # (Auto) 6.30 (1.4-6.5) K/uL Lymph # (Auto) 2.42 (1.2-3.4) K/uL [place] # (Auto) 2.47 H (0.11-0.59) K/uL Eos # (Auto) 0.03 (0-0.5) K/uL Baso # (Auto) 0.00 (0-0.2) K/uL PT 12.6 H (9.0-12.0) Seconds INR 1.2 H (0.9-1.1) Sodium (136-145) mmol/L Potassium (3.5-5.1) mmol/L Chloride (98-107) mmol/L Carbon Dioxide (21-32) mmol/L Anion Gap (3-11) BUN (7-18) mg/dl Creatinine (0.6-1.2) mg/dl Est Cr Clr Drug Dosing ml/min Est GFR ( Amer) Est GFR (Non-Af Amer) BUN/Creatinine Ratio (10-20) Glucose (70-99) mg/dl POC Glucose 130 H (70-99) Calcium (8.5-10.1) mg/dl 03/20/19 03/20/19 03/20/19 Range/Units 23:52 20:37 17:37 WBC (4.8-10.8) K/uL RBC (4.2-5.4) M/uL Hgb (12.0-16.0) g/dL Hct (37-47) % MCV (80-100) fL MCH (25-34) pg MCHC (32-36) g/dL RDW Std Deviation (36.4-46.3) fL RDW Coeff of Demetrio (11.5-14.5) % Plt Count (130-400) K/uL MPV (7.4-10.4) fL Immature Gran % (Auto) % Neut % (Auto) % Lymph % (Auto) % [place] % (Auto) % Eos % (Auto) % Baso % (Auto) % Immature Gran # (Auto) (0.00-0.02) K/uL Neut # (Auto) (1.4-6.5) K/uL Lymph # (Auto) (1.2-3.4) K/uL [place] # (Auto) (0.11-0.59) K/uL Eos # (Auto) (0-0.5) K/uL Baso # (Auto) (0-0.2) K/uL PT (9.0-12.0) Seconds INR (0.9-1.1) Sodium (136-145) mmol/L Potassium (3.5-5.1) mmol/L Chloride (98-107) mmol/L Carbon Dioxide (21-32) mmol/L Anion Gap (3-11) BUN (7-18) mg/dl Creatinine (0.6-1.2) mg/dl Est Cr Clr Drug Dosing ml/min Est GFR ( Amer) Est GFR (Non-Af Amer) BUN/Creatinine Ratio (10-20) Glucose (70-99) mg/dl POC Glucose 158 H 166 H 151 H (70-99) Calcium (8.5-10.1) mg/dl (1) Type 2 diabetes mellitus Diabetes mellitus complication detail: with unspecified neuropathy Diabetes mellitus exterminator insulin use: with usp use
[2019-03-21] MEDS: WARFARIN SOD 5 MG TAB PO SCH (15:55)
--- NOTE | 2019-03-21 15:59 | Pharmacy Report ---
Pharmacy Glycemic Short Note 2 - Date of Service March 21, 2019 - Glycemic Short BSG Results (Last 24 hours): 03/20/19 03/20/19 03/20/19 17:37 20:37 23:52 Glucose POC Glucose 151 H 166 H 158 H 03/21/19 03/21/19 03/21/19 03:29 06:21 09:26 Glucose 110 H POC Glucose 130 H 102 H 03/21/19 12:26 Glucose POC Glucose 144 H OUTPATIENT ANTIDIABETIC REGIMEN: * diet controlled * A1c = 6.2% 03/07/19 ASSESSMENT: 03/21 * Patient received total of 37 units of insulin yesterday; 20 units of which was basal Lantus. * Lantus was started for this patient due to the Dexamethasone doses that she received in the OR the last 2 days. * Dexamethasone should have worn off today since her fasting and lunch BSGs were either at goal or near goal. * Therefore, Lantus was discontinued today and will continue with Novolog coverage; parameters based on weight and stress of 2. * Of note, patient's serum creatinine felipe to 1.66 today from 0.98 yesterday which means she may be clearing less insulin and holding on to it longer. 03/20 * Type 2 diabetic admitted for L shoulder arthropathy * OR scheduled for this AM * Patient did experience severe hyperglycemia last evening. Cause of this uncertain. BSG did climb above 400. It appears Anesthesia did pull dexamethasone from the [facility] yesterday however their documentation is not in the chart or electronic record to determine if it had been administered before her OR case was cancelled yesterday. * It appears that Anesthesia pulled dexamethasone from the [facility] again this AM. I suspect she will become severely hyperglycemic after procedure if dexamethasone is the cause of yesterday's BSG elevation. * Will place orders for "low" stress basal insulin regimen this AM until details of periprocedural medications can be elucidated. Novolog doses will be based upon "moderate" stress level. PLAN FOR INPATIENT GLYCEMIC CONTROL: * Basal insulin: discontinued * Bolus insulin: continued same * NovoLog per scale ACHS or Q6hrs while NPO * Goal Range: Low 110 mg/dL - High 140 mg/dL * Correction Factor: 30 mg/dL/unit * Nutritional / Prandial insulin per carb ratio of 1 unit per 10 grams CHO consumed PLAN FOR DISCHARGE: * resume dietary measures
[2019-03-21] MEDS ORDERED: METOCLOPRAMIDE HCL INJ 5 MG/ML 2 ML VIAL IV PRN (17:24)
[2019-03-21 17:36] LABS: Hematocrit (blood only) 26.1 % (37-47); Hemoglobin 8.7 g/dL (12.0-16.0); Mean Corpuscular Hgb Conc 33.3 g/dL (32-36); Mean Corpuscular Volume 98.9 fL (80-100); Mean Platelet Volume 11.2 fL (7.4-10.4); Platelet Count 148 K/uL (130-400); RDW Coefficient of Variation 15.3 % (11.5-14.5); RDW Standard Deviation 54.8 fL (36.4-46.3); Red Blood Count 2.64 M/uL (4.2-5.4); White Blood Count 12.27 K/uL (4.8-10.8)
[2019-03-21 17:56] LABS: BUN Creatinine Ratio 20.7 (10-20); Calcium 8.6 mg/dl (8.5-10.1); Creatinine Clr Calc Pharmacy 14.9 ml/min; Est GFR (African American) 31.8; Est GFR (Non-African American) 27.4; Potassium 3.4 mmol/L (3.5-5.1)
--- NOTE | 2019-03-21 18:24 | XRay Report ---
XR KUB/Abdomen 1 view CLINICAL HISTORY: Rule out obstruction COMPARISON STUDY: No previous studies for comparison. FINDINGS: There are extensive postsurgical changes present within the thoracic and lumbar spines. The re are no transition zones to indicate bowel obstruction. IMPRESSION: Portable supine study. No evidence of bowel obstruction on conventional radiographic marylin luation Electronically signed by: Dillon Bagley M.D. 03/21/2019 6:23 PM
[2019-03-21] MEDS ORDERED: SODIUM CHLORIDE 0.9% 1000ML 1,000 ML IV ONE (18:42)
[2019-03-21] MEDS: SENNA 8.6 MG TAB PO SCH (20:19)
[2019-03-21] MEDS: ENOXAPARIN 80 MG/0.8 ML SYR SQ SCH (20:20)
[2019-03-21] MEDS: MONTELUKAST SODIUM 10 MG TABLET PO SCH (20:21)
[2019-03-21 23:10] LABS: Appearance Urine Clear (Clear); Bacteria Urine Automated Negative (Negative); Bilirubin Urine Negative (Negative); Blood Urine Trace (Negative); Color Urine Dark Yellow; Epithelial Cell Urine Auto 0-5 /lpf (0-5); Glucose Urine UA Negative (Negative); Ketones Urine Trace (Negative); Leukocyte Esterase Urine Negative (Negative); Nitrite Urine Negative (Negative); Protein Urine Negative (Negative); RBC Urine Automated 0-4 /hpf (0-4); Specific Gravity Urine 1.021 (1.000-1.030); Urobilinogen Urine Negative (Negative)
[2019-03-21 23:38] LABS: Mucus Urine Present (None Prsent)
[2019-03-22 06:08] LABS: Hematocrit (blood only) 21.6 % (37-47); Hemoglobin 7.3 g/dL (12.0-16.0); Immature Granulocytes # (auto) 0.03 K/uL (0.00-0.02); Immature Granulocytes % (auto) 0.3 %; Lymphocytes # (auto) 1.27 K/uL (1.2-3.4); Lymphocytes % (auto) 12.4 %; Mean Corpuscular Hgb Conc 33.8 g/dL (32-36); Mean Corpuscular Volume 97.7 fL (80-100); Mean Platelet Volume 10.6 fL (7.4-10.4); Monocytes # (auto) 2.01 K/uL (0.11-0.59); Monocytes % (auto) 19.6 %; Neutrophils # (auto) 6.83 K/uL (1.4-6.5); Neutrophils % (auto) 66.7 %; Platelet Count 165 K/uL (130-400); RDW Coefficient of Variation 15.4 % (11.5-14.5); RDW Standard Deviation 54.1 fL (36.4-46.3); Red Blood Count 2.21 M/uL (4.2-5.4); White Blood Count 10.24 K/uL (4.8-10.8)
[2019-03-22 06:20] LABS: INR 1.5 (0.9-1.1); Prothrombin Time 14.6 Seconds (9.0-12.0)
[2019-03-22 06:31] LABS: RBC Morphology Unremarkable
[2019-03-22 06:45] LABS: Calcium 8.2 mg/dl (8.5-10.1); Est GFR (African American) 37.3; Est GFR (Non-African American) 32.2; Potassium 4.1 mmol/L (3.5-5.1)
[2019-03-22] MEDS: FERROUS GLUCONATE 324 MG TAB PO SCH ×2 (08:02→15:55)
[2019-03-22] MEDS: ENOXAPARIN 80 MG/0.8 ML SYR SQ SCH ×2 (08:02→21:49)
[2019-03-22] MEDS: DOCUSATE SODIUM 100 MG CAP PO SCH ×2 (08:02→21:47)
[2019-03-22] MEDS: MULTIVITAMIN TAB PO SCH (08:02)
[2019-03-22] MEDS: INSULIN ASPART 100 UNITS/ML 3 ML PEN SC SCH ×4 (08:04→21:48)
[2019-03-22] MEDS: SODIUM CHLORIDE 0.9% 1000ML 1,000 ML IV SCH (08:06)
[2019-03-22] MEDS ORDERED: SODIUM CHLORIDE 0.9% 250 ML IV PRN (08:47)
--- NOTE | 2019-03-22 09:34 | Orthopedic Progress Note ---
Date of Service March 22, 2019 Assessment & Plan (1) Status post reverse total arthroplasty of left shoulder: POD 3 Left reversed TSA Minimal PT and OT protocol per Dr. Sosa's reverse total shoulder protocol. Continue DVT prophylaxis with SCDs, MINDY hose, warfarin with enoxaparin bridging. INR 1.5 Acute blood loss anemia HGB 7.3 this AM, transfusion per medicine today. BUN and creatinine have elevated likely due to dehydration and GARFIELD. KUB negative for obstruction, continue bowel protocol as per medicine. DC planning-patient is planning on home health services. Subjective Patient is postop day 3 status post left reverse total shoulder arthroplasty. Denies SOB, CP, N/V. Pain controlled well. Denies abdominal pain- No BM yet. KUB neg for obstruction Hgb 7.3 this AM INR 1.5 Physical Exam Physical Exam: Left shoulder dressings c/d/i, no drainage, drain in tact, sling in tact, fingers mobile. A&Ox3. sitting comfortably at bedside. Results & Data Vital Signs (Past 12 Hours) Vital Signs Temp Pulse Resp BP Pulse Ox 03/22/19 06:36 37.0 C 61 16 110/62 99 03/21/19 23:24 37.1 C 60 16 105/63 100
[2019-03-22] MEDS ORDERED: POLYETHYLENE (MIRALAX) 17 GM PACK PO PRN (10:06)
--- NOTE | 2019-03-22 12:08 | Hospitalist Progress Note ---
Date of Service March 22, 2019 Assessment & Plan (1) Shoulder joint replacement status: - Completed on 03/20/19, POD #2. - Pain control per primary team. - DVT ppx: resumed home Coumadin, bridging with Lovenox BID. - PT/OT evaluation. (2) Low urine output: - Removed lawson on 03/21, has had minimal urine production/output over last 24 hours. - Straight cath for 300 cc last evening, voided 100 cc overnight and bladder scanned for 32 ml this morning. - May be related to dehydration -- continue aggressive IV fluid hydration, will receive 2 units pRBCs this morning. - IV fluids at 80 cc/hr - will resume following blood transfusion. - Monitor BMP closely -- creatinine is above baseline but is not trending up overall. (3) Acute kidney injury: - Creatinine peaked at 1.7, now improved to 1.5; may be related to ATN in setting of large volume blood loss intra-operatively. - U/a was +hyaline casts and trace blood. - Received 2L bolus last evening followed by IV fluids at 80 cc/hr. - IV fluids/blood transfusion as noted above. - Holding home Lasix 40 mg PO daily. (4) Stage III chronic kidney disease: - Renally dose all meds. (5) Acute anemia: - Significant drop in hemoglobin related to intra op blood loss (estimated 500 cc) and partially dilutional. - Hgb was 7.3 this morning -- ordered 2 units pRBCs. - Ferrous gluconate 324 mg BID. - Repeat CBC is ordered this afternoon. (6) Type 2 diabetes mellitus: - Hemoglobin A1C was 6.2. - SSI coverage. (7) CAD (coronary artery disease): - AR in 2012 ([place]) following shoulder surgery. - Holding Metoprolol due to recent hypotension. (8) Atrial fibrillation: - S/p AV junction ablation and insertion of dual chamber/bi-ventricular pacemaker in May 2016. - Holding Metoprolol due to recent hypotension; HR has been well controlled. - Resumed Warfarin post op -- INR is subtherapeutic (1.5), monitor qAM. - Bridging with therapeutic Lovenox BID. (9) Sarcoidosis: - Will monitor. (10) Chronic respiratory failure with hypoxia: - Chronically requires 2L via NC at home in setting of sarcoidosis. (11) Chronic congestive heart failure: - Most recent TTE in Oct 2017 showed EF 55%, reduced right systolic function. - Monitor net I/Os and daily weights. - Holding BB due to hypotension and Lasix due to GARFIELD. (12) Obstructive sleep apnea: - Wears CPAP qhs. (13) Hypertension: - Holding BB due to hypotension and Lasix due to GARFIELD. - SBP 100-110's. (14) Hyperlipidemia: - Not currently on statin therapy. (15) Pulmonary HTN: - Severe pulm HTN noted on TTE in 2017. - Requires 2L via NC chronically. (16) Valvular heart disease: - Moderate mitral regurg and severe tricuspid regurg noted on TTE in Oct 2017. (17) Obesity: - BMI 35 - encourage weight loss and exercise. (18) DVT prophylaxis: - Lovenox and Coumadin. Dispo: Will continue to follow, please call with any questions. Supervising Physician Co-Signing Physician Notes Attending attestation - Chart reviewed in detail, and care plan d/w MARION Waller. I agree w/ the tidwell components of her documentation. 78yo female s/p left total shoulder replacement. Urine output modestly improved overnight with fluids but H/H this am low and I agree w/ decision to give PRBCs. Cont to hold lasix. Acute kidney injury modestly improved as well. Warfarin resumed. Daily INR. Leonel Lorenzo MD Subjective Nausea/vomiting is improved, is tolerating PO intake. She has not had a BM yet but is passing gas -- will give Miralax today. Has a cough -- has been persistent over last 5 weeks. Did complete course of Doxycycline for symptoms. Her outpatient physician felt cough may be related to seasonal allergies. Urine output is very minimal -- she was straight cath'ed for 300 cc last evening then voided 100 cc overnight. Bladder scan showed ~32 cc this morning and she voided a very small amount. BP is now improved following aggressive IV fluid hydration. Will give 2 units PRBCs for hgb 7.3 due to large intra op blood loss. Denies chest pain, SOB, abd pain. Will continue to monitor urine output closely. Review of Systems Review of Systems: All systems reviewed & are unremarkable except as noted in HPI & below Constitutional: no fever, no chills, no fatigue and no weakness Respiratory: no cough, no dyspnea, no dyspnea on exertion and no wheezing Cardiovascular: no chest pain, no dyspnea, no palpitations, no syncope and no edema Gastrointestinal: + constipation; no abdominal pain, no nausea and no vomiting Genitourinary: + difficulty urinating and + decreased urination; no dysuria and no hematuria Musculoskeletal: + joint pain; no back pain Integumentary: no non-healing lesions Allergy / Immunological: no rash Physical Exam Physical Exam: General: Resting comfortably in no apparent distress; A&OX3 HEENT: NC/AT; PERRLA with EOMI; [place] conjunctiva, MMM. No erythema of posterior pharynx Neck: Supple and nontender Cardiac: RRR Lungs: on 2L via NC (home requirements); clear to auscultation throughout. Abdomen: Bowel normoactive X 4; Nontender to light palpation. Extremities: Warm. No edema present Neuro: No focal weakness Skin: No rash Results & Data Vital Signs (Past 12 Hours) Vital Signs Temp Pulse Pulse Resp BP BP Pulse Ox 03/22/19 11:29 36.9 C 60 19 106/64 03/22/19 11:14 36.7 C 60 18 103/52 L 100 03/22/19 10:45 36.7 C 61 18 100/61 03/22/19 06:36 37.0 C 61 16 110/62 99 Laboratory Results 03/22/19 03/22/19 03/22/19 Range/Units 09:12 06:58 05:01 WBC (4.8-10.8) K/uL RBC (4.2-5.4) M/uL Hgb (12.0-16.0) g/dL Hct (37-47) % MCV (80-100) fL MCH (25-34) pg MCHC (32-36) g/dL RDW Std Deviation (36.4-46.3) fL RDW Coeff of Demetrio (11.5-14.5) % Plt Count (130-400) K/uL MPV (7.4-10.4) fL Immature Gran % (Auto) % Neut % (Auto) % Lymph % (Auto) % [place] % (Auto) % Eos % (Auto) % Baso % (Auto) % Immature Gran # (Auto) (0.00-0.02) K/uL Neut # (Auto) (1.4-6.5) K/uL Lymph # (Auto) (1.2-3.4) K/uL [place] # (Auto) (0.11-0.59) K/uL Eos # (Auto) (0-0.5) K/uL Baso # (Auto) (0-0.2) K/uL RBC Morphology PT (9.0-12.0) Seconds INR (0.9-1.1) Sodium 139 (136-145) mmol/L Potassium 4.1 D (3.5-5.1) mmol/L Chloride 105 (98-107) mmol/L Carbon Dioxide 27 (21-32) mmol/L Anion Gap 6.0 (3-11) BUN 37 H (7-18) mg/dl Creatinine 1.54 H (0.6-1.2) mg/dl Est Cr Clr Drug Dosing 17.0 ml/min Est GFR ( Amer) 37.3 Est GFR (Non-Af Amer) 32.2 BUN/Creatinine Ratio 24.0 H (10-20) Glucose 144 H (70-99) mg/dl POC Glucose 155 H (70-99) Calcium 8.2 L (8.5-10.1) mg/dl Random Cortisol mcg/dl Urine Color Urine Appearance (Clear) Urine pH (4.5-7.5) Ur Specific [place] (1.000-1.030) Urine Protein (Negative) Urine Glucose (UA) (Negative) Urine Ketones (Negative) Urine Blood (Negative) Urine Nitrite (Negative) Urine Bilirubin (Negative) Urine Urobilinogen (Negative) Ur Leukocyte Esterase (Negative) Urine WBC (Auto) (0-5) /hpf Urine RBC (Auto) (0-4) /hpf U Hyaline Cast (Auto) (0-5) /lpf U Epithel Cells (Auto) (0-5) /lpf Urine Bacteria (Auto) (Negative) Urine Mucus (None Prsent) Blood Type A Positive Antibody Screen NEGATIVE Crossmatch See Detail 03/22/19 03/22/19 03/21/19 Range/Units 05:01 05:01 22:45 WBC 10.24 (4.8-10.8) K/uL RBC 2.21 L (4.2-5.4) M/uL Hgb 7.3 L (12.0-16.0) g/dL Hct 21.6 L (37-47) % MCV 97.7 (80-100) fL MCH 33.0 (25-34) pg MCHC 33.8 (32-36) g/dL RDW Std Deviation 54.1 H (36.4-46.3) fL RDW Coeff of Demetrio 15.4 H (11.5-14.5) % Plt Count 165 (130-400) K/uL MPV 10.6 H (7.4-10.4) fL Immature Gran % (Auto) 0.3 % Neut % (Auto) 66.7 % Lymph % (Auto) 12.4 % [place] % (Auto) 19.6 % Eos % (Auto) 1.0 % Baso % (Auto) 0.0 % Immature Gran # (Auto) 0.03 H (0.00-0.02) K/uL Neut # (Auto) 6.83 H (1.4-6.5) K/uL Lymph # (Auto) 1.27 (1.2-3.4) K/uL [place] # (Auto) 2.01 H (0.11-0.59) K/uL Eos # (Auto) 0.10 (0-0.5) K/uL Baso # (Auto) 0.00 (0-0.2) K/uL RBC Morphology Unremarkable PT 14.6 H (9.0-12.0) Seconds INR 1.5 H (0.9-1.1) Sodium (136-145) mmol/L Potassium (3.5-5.1) mmol/L Chloride (98-107) mmol/L Carbon Dioxide (21-32) mmol/L Anion Gap (3-11) BUN (7-18) mg/dl Creatinine (0.6-1.2) mg/dl Est Cr Clr Drug Dosing ml/min Est GFR ( Amer) Est GFR (Non-Af Amer) BUN/Creatinine Ratio (10-20) Glucose (70-99) mg/dl POC Glucose (70-99) Calcium (8.5-10.1) mg/dl Random Cortisol mcg/dl Urine Color Dark Yellow Urine Appearance Clear (Clear) Urine pH 5.0 (4.5-7.5) Ur Specific [place] 1.021 (1.000-1.030) Urine Protein Negative (Negative) Urine Glucose (UA) Negative (Negative) Urine Ketones Trace H (Negative) Urine Blood Trace H (Negative) Urine Nitrite Negative (Negative) Urine Bilirubin Negative (Negative) Urine Urobilinogen Negative (Negative) Ur Leukocyte Esterase Negative (Negative) Urine WBC (Auto) 1-5 (0-5) /hpf Urine RBC (Auto) 0-4 (0-4) /hpf U Hyaline Cast (Auto) 10-30 H (0-5) /lpf U Epithel Cells (Auto) 0-5 (0-5) /lpf Urine Bacteria (Auto) Negative (Negative) Urine Mucus Present A (None Prsent) Blood Type Antibody Screen Crossmatch 03/21/19 03/21/19 03/21/19 Range/Units 20:55 20:45 17:30 WBC (4.8-10.8) K/uL RBC (4.2-5.4) M/uL Hgb (12.0-16.0) g/dL Hct (37-47) % MCV (80-100) fL MCH (25-34) pg MCHC (32-36) g/dL RDW Std Deviation (36.4-46.3) fL RDW Coeff of Demetrio (11.5-14.5) % Plt Count (130-400) K/uL MPV (7.4-10.4) fL Immature Gran % (Auto) % Neut % (Auto) % Lymph % (Auto) % [place] % (Auto) % Eos % (Auto) % Baso % (Auto) % Immature Gran # (Auto) (0.00-0.02) K/uL Neut # (Auto) (1.4-6.5) K/uL Lymph # (Auto) (1.2-3.4) K/uL [place] # (Auto) (0.11-0.59) K/uL Eos # (Auto) (0-0.5) K/uL Baso # (Auto) (0-0.2) K/uL RBC Morphology PT (9.0-12.0) Seconds INR (0.9-1.1) Sodium (136-145) mmol/L Potassium (3.5-5.1) mmol/L Chloride (98-107) mmol/L Carbon Dioxide (21-32) mmol/L Anion Gap (3-11) BUN (7-18) mg/dl Creatinine (0.6-1.2) mg/dl Est Cr Clr Drug Dosing ml/min Est GFR ( Amer) Est GFR (Non-Af Amer) BUN/Creatinine Ratio (10-20) Glucose (70-99) mg/dl POC Glucose 129 H 145 H (70-99) Calcium (8.5-10.1) mg/dl Random Cortisol 13.39 mcg/dl Urine Color Urine Appearance (Clear) Urine pH (4.5-7.5) Ur Specific [place] (1.000-1.030) Urine Protein (Negative) Urine Glucose (UA) (Negative) Urine Ketones (Negative) Urine Blood (Negative) Urine Nitrite (Negative) Urine Bilirubin (Negative) Urine Urobilinogen (Negative) Ur Leukocyte Esterase (Negative) Urine WBC (Auto) (0-5) /hpf Urine RBC (Auto) (0-4) /hpf U Hyaline Cast (Auto) (0-5) /lpf U Epithel Cells (Auto) (0-5) /lpf Urine Bacteria (Auto) (Negative) Urine Mucus (None Prsent) Blood Type Antibody Screen Crossmatch 03/21/19 03/21/19 03/21/19 Range/Units 17:30 17:29 12:26 WBC 12.27 H (4.8-10.8) K/uL RBC 2.64 L (4.2-5.4) M/uL Hgb 8.7 L (12.0-16.0) g/dL Hct 26.1 L (37-47) % MCV 98.9 (80-100) fL MCH 33.0 (25-34) pg MCHC 33.3 (32-36) g/dL RDW Std Deviation 54.8 H (36.4-46.3) fL RDW Coeff of Demetrio 15.3 H (11.5-14.5) % Plt Count 148 (130-400) K/uL MPV 11.2 H (7.4-10.4) fL Immature Gran % (Auto) % Neut % (Auto) % Lymph % (Auto) % [place] % (Auto) % Eos % (Auto) % Baso % (Auto) % Immature Gran # (Auto) (0.00-0.02) K/uL Neut # (Auto) (1.4-6.5) K/uL Lymph # (Auto) (1.2-3.4) K/uL [place] # (Auto) (0.11-0.59) K/uL Eos # (Auto) (0-0.5) K/uL Baso # (Auto) (0-0.2) K/uL RBC Morphology PT (9.0-12.0) Seconds INR (0.9-1.1) Sodium 135 L (136-145) mmol/L Potassium 3.4 L (3.5-5.1) mmol/L Chloride 101 (98-107) mmol/L Carbon Dioxide 29 (21-32) mmol/L Anion Gap 5.0 (3-11) BUN 36 H (7-18) mg/dl Creatinine 1.76 H (0.6-1.2) mg/dl Est Cr Clr Drug Dosing 14.9 ml/min Est GFR ( Amer) 31.8 Est GFR (Non-Af Amer) 27.4 BUN/Creatinine Ratio 20.7 H (10-20) Glucose 169 H (70-99) mg/dl POC Glucose 144 H (70-99) Calcium 8.6 (8.5-10.1) mg/dl Random Cortisol mcg/dl Urine Color Urine Appearance (Clear) Urine pH (4.5-7.5) Ur Specific [place] (1.000-1.030) Urine Protein (Negative) Urine Glucose (UA) (Negative) Urine Ketones (Negative) Urine Blood (Negative) Urine Nitrite (Negative) Urine Bilirubin (Negative) Urine Urobilinogen (Negative) Ur Leukocyte Esterase (Negative) Urine WBC (Auto) (0-5) /hpf Urine RBC (Auto) (0-4) /hpf U Hyaline Cast (Auto) (0-5) /lpf U Epithel Cells (Auto) (0-5) /lpf Urine Bacteria (Auto) (Negative) Urine Mucus (None Prsent) Blood Type Antibody Screen Crossmatch (1) Type 2 diabetes mellitus Diabetes mellitus complication detail: with unspecified neuropathy Diabetes mellitus group home insulin use: with terminal supervisor use
[2019-03-22] MEDS: WARFARIN SOD 5 MG TAB PO SCH (15:55)
[2019-03-22 20:23] LABS: Hematocrit (blood only) 27.7 % (37-47); Hemoglobin 9.5 g/dL (12.0-16.0)
[2019-03-22 20:42] LABS: BUN Creatinine Ratio 24.9 (10-20); Calcium 8.5 mg/dl (8.5-10.1); Creatinine Clr Calc Pharmacy 35.7 ml/min; Est GFR (African American) 45.4; Est GFR (Non-African American) 39.2; Potassium 3.8 mmol/L (3.5-5.1)
[2019-03-22] MEDS: SENNA 8.6 MG TAB PO SCH (21:48)
[2019-03-22] MEDS: MONTELUKAST SODIUM 10 MG TABLET PO SCH (21:49)
[2019-03-23 05:38] LABS: Mean Corpuscular Hgb Conc 34.6 g/dL (32-36); Mean Corpuscular Volume 94.9 fL (80-100); Mean Platelet Volume 10.3 fL (7.4-10.4); Platelet Count 134 K/uL (130-400); RDW Coefficient of Variation 16.3 % (11.5-14.5); Red Blood Count 2.74 M/uL (4.2-5.4); White Blood Count 9.96 K/uL (4.8-10.8)
[2019-03-23 05:57] LABS: INR 1.9 (0.9-1.1); Prothrombin Time 18.2 Seconds (9.0-12.0)
[2019-03-23 06:02] LABS: BUN Creatinine Ratio 26.7 (10-20); Calcium 8.6 mg/dl (8.5-10.1); Creatinine Clr Calc Pharmacy 40.3 ml/min; Est GFR (African American) 52.6; Est GFR (Non-African American) 45.4; Potassium 3.8 mmol/L (3.5-5.1)
[2019-03-23] MEDS ORDERED: MAGNESIUM CITRATE 296 ML/BTL PO SCH (08:30)
[2019-03-23] MEDS: DOCUSATE SODIUM 100 MG CAP PO SCH (08:43)
[2019-03-23] MEDS: ENOXAPARIN 80 MG/0.8 ML SYR SQ SCH (08:43)
[2019-03-23] MEDS: MULTIVITAMIN TAB PO SCH (08:43)
[2019-03-23] MEDS: FERROUS GLUCONATE 324 MG TAB PO SCH (08:43)
[2019-03-23] MEDS: INSULIN ASPART 100 UNITS/ML 3 ML PEN SC SCH ×2 (08:45→13:02)
--- NOTE | 2019-03-23 09:52 | Orthopedic Progress Note ---
Date of Service March 23, 2019 Assessment & Plan (1) Status post reverse total arthroplasty of left shoulder: POD 4 Left reversed TSA Minimal PT and OT protocol per Dr. Sosa's reverse total shoulder protocol. Continue DVT prophylaxis with SCDs, MINDY hose, warfarin with enoxaparin bridging. INR 1.9 this AM, may consider D/C-ing Lovenox Acute blood loss anemia HGB 9.0 this AM, s/p transfusion. BUN and creatinine have elevated likely due to dehydration and GARFIELD. KUB negative for obstruction, continue bowel protocol as per medicine. DC planning-patient is planning on home health services when medically cleared. Subjective Patient is postop day 4 status post left reverse total shoulder arthroplasty. Denies SOB, CP, N/V. Pain controlled well. Denies abdominal pain- No BM yet. Hgb 9.0 this AM s/p transfusion INR 1.9 Physical Exam Physical Exam: Left shoulder incision c/d/i, no erythema, no drainage, fingers mobile, sling in tact. Results & Data Vital Signs (Past 12 Hours) Vital Signs Temp Pulse Resp BP Pulse Ox 03/23/19 08:17 37.0 C 59 L 18 113/63 100 03/22/19 23:05 37.2 C 60 18 115/60 100
--- NOTE | 2019-03-23 14:20 | Hospitalist Progress Note ---
Date of Service March 23, 2019 Assessment & Plan (1) Shoulder joint replacement status: - Completed on 03/20/19, POD #3. - Pain control per primary team. - DVT ppx: Coumadin with Lovenox bridging. - PT/OT - discharge today with home health. (2) Low urine output: - Removed lawson on 03/21, had minimal urine output likely in setting of ATN from acute blood loss intra op. - Urine output is now improved following aggressive IV fluid hydration and PRBC transfusions. (3) Acute kidney injury: - Creatinine peaked at 1.7, now improved to baseline; was likely related to ATN in setting of acute blood loss. - U/a was +hyaline casts and trace blood. - Received IV fluids and pRBCs over last 48 hours. - Plan to resume home Lasix 40 mg PO daily on Monday 03/26. (4) Stage III chronic kidney disease: - Renally dose all meds. (5) Acute anemia: - Significant drop in hemoglobin related to intra op blood loss (estimated 500 cc) and partially dilutional. - Hgb was 7.3 on 03/22, responded well to 2 units pRBCs. - Ferrous gluconate 324 mg BID. - Script provided for outpatient CBC in 3 days. (6) Type 2 diabetes mellitus: - Hemoglobin A1C was 6.2. - SSI coverage. (7) CAD (coronary artery disease): - OR in 2012 ([place]) following shoulder surgery. - Holding Metoprolol in setting of recent hypotension -- instructed pt. to resume on Sunday. (8) Atrial fibrillation: - S/p AV junction ablation and insertion of dual chamber/bi-ventricular pacemaker in May 2016. - Holding Metoprolol -- will resume on Sunday. - Resumed Warfarin post op -- INR was 1.9 today, will resume home dose of Warfarin at discharge. - Therapeutic Lovenox BID -- last dose of Lovenox will be this evening, then d/c bridging therapy. - Script provided for outpt PT/INR in 3 days. (9) Sarcoidosis: - Will monitor. (10) Chronic respiratory failure with hypoxia: - Chronically requires 2L via NC at home in setting of sarcoidosis. (11) Chronic congestive heart failure: - Most recent TTE in Oct 2017 showed EF 55%, reduced right systolic function. - Monitor net I/Os and daily weights. - Holding BB and Lasix, resume as noted above this week. (12) Obstructive sleep apnea: - Wears CPAP qhs. (13) Hypertension: - BP has been stable without BB or Lasix doses. - Will resume Lasix on Sun and BB on Sun morning. (14) Hyperlipidemia: - Not currently on statin therapy. (15) Pulmonary HTN: - Severe pulm HTN noted on TTE in 2017. - Requires 2L via NC chronically. (16) Valvular heart disease: - Moderate mitral regurg and severe tricuspid regurg noted on TTE in Oct 2017. (17) Obesity: - BMI 35 - encourage weight loss and exercise. (18) DVT prophylaxis: - Lovenox and Coumadin. Dispo: Pt. is medically stable for discharge, discharge instructions were updated. Will sign off. Will need close follow up with PCP in 3-4 days. Supervising Physician Co-Signing Physician Notes Attending attestation - Chart reviewed in detail, and care plan d/w PA Roselyn Waller. I agree w/ the tidwell components of her documentation. 78yo female s/p left total shoulder replacement. Acute kidney injury resolved. H/H much improved following PRBCs. Urine output now normal. INR 1.9 today. Other chronic medical issues stable. Leonel Lorenzo MD Subjective Pt. is doing well. N/V resolved. Has not had a BM but is passing gas. PO intake was very limited post op in setting of N/V, likely leading to lack of BM. Has good urine output. D/c to home today. Review of Systems Review of Systems: All systems reviewed & are unremarkable except as noted in HPI & below Constitutional: no fever, no chills, no fatigue and no weakness Respiratory: no cough, no dyspnea, no dyspnea on exertion and no wheezing Cardiovascular: no chest pain, no palpitations and no edema Gastrointestinal: + constipation; no abdominal pain, no nausea and no vomiting Genitourinary: no difficulty urinating Musculoskeletal: no back pain and no joint pain Integumentary: no non-healing lesions Allergy / Immunological: no rash Physical Exam Physical Exam: General: Resting comfortably in no apparent distress; A&OX3 HEENT: NC/AT; PERRLA with EOMI; [place] conjunctiva, MMM. No erythema of posterior pharynx Neck: Supple and nontender Cardiac: RRR Lungs: on 2L via NC (home requirements); clear to auscultation. Abdomen: Bowel normoactive X 4; Nontender to light palpation. Extremities: Warm. No edema present Neuro: No focal weakness Skin: No rash Results & Data Vital Signs (Past 12 Hours) Vital Signs Temp Pulse Pulse Pulse Resp BP Pulse Ox 03/23/19 13:16 37.0 C 60 59 L 59 L 18 113/63 100 03/23/19 08:17 37.0 C 59 L 18 113/63 100 Laboratory Results 03/23/19 03/23/19 03/23/19 Range/Units 11:58 08:14 05:18 WBC (4.8-10.8) K/uL RBC (4.2-5.4) M/uL Hgb (12.0-16.0) g/dL Hct (37-47) % MCV (80-100) fL MCH (25-34) pg MCHC (32-36) g/dL RDW Std Deviation (36.4-46.3) fL RDW Coeff of Demetrio (11.5-14.5) % Plt Count (130-400) K/uL MPV (7.4-10.4) fL PT (9.0-12.0) Seconds INR (0.9-1.1) Sodium 137 (136-145) mmol/L Potassium 3.8 (3.5-5.1) mmol/L Chloride 105 (98-107) mmol/L Carbon Dioxide 27 (21-32) mmol/L Anion Gap 5.0 (3-11) BUN 31 H (7-18) mg/dl Creatinine 1.16 (0.6-1.2) mg/dl Est Cr Clr Drug Dosing 40.3 ml/min Est GFR ( Amer) 52.6 Est GFR (Non-Af Amer) 45.4 BUN/Creatinine Ratio 26.7 H (10-20) Glucose 109 H (70-99) mg/dl POC Glucose 124 H 119 H (70-99) Calcium 8.6 (8.5-10.1) mg/dl Blood Type Antibody Screen Crossmatch 03/23/19 03/23/19 03/22/19 Range/Units 05:18 05:18 20:51 WBC 9.96 (4.8-10.8) K/uL RBC 2.74 L (4.2-5.4) M/uL Hgb 9.0 L (12.0-16.0) g/dL Hct 26.0 L (37-47) % MCV 94.9 (80-100) fL MCH 32.8 (25-34) pg MCHC 34.6 (32-36) g/dL RDW Std Deviation 56.0 H (36.4-46.3) fL RDW Coeff of Demetrio 16.3 H (11.5-14.5) % Plt Count 134 (130-400) K/uL MPV 10.3 (7.4-10.4) fL PT 18.2 H (9.0-12.0) Seconds INR 1.9 H (0.9-1.1) Sodium (136-145) mmol/L Potassium (3.5-5.1) mmol/L Chloride (98-107) mmol/L Carbon Dioxide (21-32) mmol/L Anion Gap (3-11) BUN (7-18) mg/dl Creatinine (0.6-1.2) mg/dl Est Cr Clr Drug Dosing ml/min Est GFR ( Amer) Est GFR (Non-Af Amer) BUN/Creatinine Ratio (10-20) Glucose (70-99) mg/dl POC Glucose 121 H (70-99) Calcium (8.5-10.1) mg/dl Blood Type Antibody Screen Crossmatch 03/22/19 03/22/19 03/22/19 Range/Units 20:15 20:15 17:13 WBC (4.8-10.8) K/uL RBC (4.2-5.4) M/uL Hgb 9.5 L (12.0-16.0) g/dL Hct 27.7 L (37-47) % MCV (80-100) fL MCH (25-34) pg MCHC (32-36) g/dL RDW Std Deviation (36.4-46.3) fL RDW Coeff of Demetrio (11.5-14.5) % Plt Count (130-400) K/uL MPV (7.4-10.4) fL PT (9.0-12.0) Seconds INR (0.9-1.1) Sodium 136 (136-145) mmol/L Potassium 3.8 (3.5-5.1) mmol/L Chloride 104 (98-107) mmol/L Carbon Dioxide 27 (21-32) mmol/L Anion Gap 5.0 (3-11) BUN 33 H (7-18) mg/dl Creatinine 1.31 H (0.6-1.2) mg/dl Est Cr Clr Drug Dosing 35.7 ml/min Est GFR ( Amer) 45.4 Est GFR (Non-Af Amer) 39.2 BUN/Creatinine Ratio 24.9 H (10-20) Glucose 118 H (70-99) mg/dl POC Glucose 139 H (70-99) Calcium 8.5 (8.5-10.1) mg/dl Blood Type Antibody Screen Crossmatch 03/22/19 Range/Units 09:12 WBC (4.8-10.8) K/uL RBC (4.2-5.4) M/uL Hgb (12.0-16.0) g/dL Hct (37-47) % MCV (80-100) fL MCH (25-34) pg MCHC (32-36) g/dL RDW Std Deviation (36.4-46.3) fL RDW Coeff of Demetrio (11.5-14.5) % Plt Count (130-400) K/uL MPV (7.4-10.4) fL PT (9.0-12.0) Seconds INR (0.9-1.1) Sodium (136-145) mmol/L Potassium (3.5-5.1) mmol/L Chloride (98-107) mmol/L Carbon Dioxide (21-32) mmol/L Anion Gap (3-11) BUN (7-18) mg/dl Creatinine (0.6-1.2) mg/dl Est Cr Clr Drug Dosing ml/min Est GFR ( Amer) Est GFR (Non-Af Amer) BUN/Creatinine Ratio (10-20) Glucose (70-99) mg/dl POC Glucose (70-99) Calcium (8.5-10.1) mg/dl Blood Type A Positive Antibody Screen NEGATIVE Crossmatch See Detail (1) Type 2 diabetes mellitus Diabetes mellitus complication detail: with unspecified neuropathy Diabetes mellitus mcfp insulin use: with mcfp use
--- NOTE | 2019-03-24 15:50 | Discharge Summary ---
DISCHARGE DIAGNOSES: Left shoulder rotator cuff arthropathy, advanced glenohumeral osteoarthritis with bone loss, failed rotator cuff repair, chronic ruptured biceps tendon, retained hardware. SECONDARY DIAGNOSES: Coronary artery disease status post myocardial infarction in 2013, congestive heart failure with history of heart murmur, hypertension, irregular heartbeat, sleep apnea with use of CPAP, diabetes mellitus, sarcoidosis, osteoarthritis, sciatica, gastroesophageal reflux disease, obesity, stage III chronic kidney disease, history of pacemaker implantation. CONSULTS: Dr. Michael Davis, Dr. Baldev Dickey. COMPLICATIONS: None. PROCEDURES: Left reverse total shoulder arthroplasty with removal of hardware, bone graft, greater tuberosity, humeral head autograft by Dr. Sosa on 03/20/2019. BRIEF HISTORY: As dictated in the history and physical. HOSPITAL SUMMARY: The patient was admitted on 03/19/2019 with plans for the above-noted surgery; however, the surgery had to be postponed and the patient already had an arterial line placed as well as other blocks for her shoulder and plans were to have her surgery to the following morning. She was placed in the surgical ICU overnight for maintenance of her arterial line, and then on 03/20/2019, she was then brought to the OR and the above-noted procedure was performed, which she tolerated well. On her first postoperative day, she was currently lying in bed and stated that she had been nauseous most of the day. She has not vomited. She denies shortness of breath, chest pain or lightheadedness. She felt that it may be secondary to her narcotics and other medication she may be taking. She states that she had her dinner last night which did not agree with her. Since that time, she has been having some nausea. She denies overt abdominal pain, but feels somewhat sore across the top of her abdomen. She states that she is not passing flatus at this time. Her pain was controlled. Dressings were clean, dry and intact. Hemovac drainage was down to 5 mL. She was able to move the hand and the fingers quite well with good wrist range of motion. Neurovascular was intact. Bowel sounds were present and active. Abdomen was soft and nondistended and she has some mild tenderness in the upper quadrants. Vital signs were stable. She was afebrile. Hemoglobin was 8.6. Due to the patient not having flatus and no bowel movement for 2 days, a KUB was ordered which showed no evidence of bowel obstruction. Plans are for minimal PT/OT protocol per Dr. Sosa's reverse total shoulder protocol. She was continued on DVT prophylaxis with SCDs and MINDY hose and warfarin with enoxaparin bridging. The patient was agreeable to hold her oxycodone and try tramadol for pain control. Plans were to follow her H and H, and BUN and creatinine were elevated likely due to dehydration and GARFIELD. Her fluids were restarted for gentle hydration. A UA was ordered per medicine service to evaluate for ATN in the setting of large volume loss and postop hypertension. By the next day, her second postoperative day, she was denied shortness of breath, chest pain or nausea, vomiting. Pain was controlled. Denied abdominal pain. No BM as of yet. KUB was notably negative. Hemoglobin had dropped to 7.3 and INR is 1.5. Left shoulder dressings were clean, dry and intact. No drainage. Drain was intact. Fingers were mobile, sitting comfortably at the bedside. BP was 110/62. She was transfused PRBCs due to low hemoglobin. By 03/23/2019, she had no complaints. Pain was controlled. She had no abdominal pain. Hemoglobin was 9.0 that morning, status post transfusion. INR was 1.9. BUN and creatinine were ultimately better. The patient was otherwise remaining orthopedically stable and was thusly discharged to home with home health services on 03/23/2019. For further review, please see chart. LABORATORY AND X-RAY DATA: As per chart. DISCHARGE INSTRUCTIONS: The patient was discharged to home on 03/23/2019 with home health services. Diet: Regular. Activity: Follow reverse shoulder arthroplasty instructions per Dr. Sosa's written instructions on special wound care and activities. Please see medicine service instructions for acute kidney injury, constipation, anemia and warfarin management and hypertension. Follow up with Dr. Sosa in 2 weeks from the day of surgery. The patient is to call for appointment if one has not made for you. Follow up with her primary care physician in the next 3-4 days to redraw further lab work. DISCHARGE MEDICATIONS: Colace 100 mg p.o. b.i.d., ferrous gluconate 324 mg p.o. b.i.d., Percocet 1 tab p.o. q. 6 hours p.r.n., MiraLax 17 grams p.o. daily. Resume home meds as listed. Enoxaparin changed to 80 mg subcutaneous b.i.d., stop taking ferrous sulfate and resume your Coumadin as she normally takes it and stopping the enoxaparin when Coumadin is therapeutic.
== END 2019-03-23 14:02 | disposition home health service (06) | DRG 483 ==
LOC: ASU 09:22 → 1E 14:27 → 3E 03-20 11:46
DX: Z79.01 Long term (current) use of anticoagulants; D62 Acute posthemorrhagic anemia; M75.122 Complete rotator cuff tear or rupture of left shoulder, not specified as traumatic; Z99.81 Dependence on supplemental oxygen; I50.22 Chronic systolic (congestive) heart failure; G47.33 Obstructive sleep apnea (adult) (pediatric); M19.012 Primary osteoarthritis, left shoulder; E78.5 Hyperlipidemia, unspecified; E11.22 Type 2 diabetes mellitus with diabetic chronic kidney disease; E86.0 Dehydration; I13.0 Hypertensive heart and chronic kidney disease with heart failure and stage 1 through stage 4 chronic kidney disease, or unspecified chronic kidney disease; N17.0 Acute kidney failure with tubular necrosis; T40.605A Adverse effect of unspecified narcotics, initial encounter; I48.91 Unspecified atrial fibrillation; Z79.82 Long term (current) use of aspirin; I25.10 Atherosclerotic heart disease of native coronary artery without angina pectoris; N18.3 Chronic kidney disease, stage 3 (moderate); R11.2 Nausea with vomiting, unspecified; J96.11 Chronic respiratory failure with hypoxia; Z79.899 Other long term (current) drug therapy

== ENCOUNTER 2019-03-23 21:13 | Inpatient (IN) ==
[2019-03-23] MEDS ORDERED: HYDROmorphone INJ 0.5 MG/0.5 ML SYR IV STA ×2 (21:46→23:25)
--- NOTE | 2019-03-23 22:48 | XRay Report ---
XR shoulder LT min 2V routine CLINICAL HISTORY: left shoulder pain post surgery COMPARISON: 03/20/2019 DISCUSSION: There are postsurgical changes of a reverse total left shoulder arthroplasty. No acute fr actures or dislocations are visualized. Overlying skin jorge are evident. There is been interval re moval of the surgical drain. IMPRESSION: 1. Postsurgical changes of a reverse total left shoulder arthroplasty 2. No acute fractures or dislocations identified Electronically signed by: Dillon Bagley M.D. 03/23/2019 10:46 PM
[2019-03-23 22:49] LABS: Hematocrit (blood only) 26.9 % (37-47); Hemoglobin 9.1 g/dL (12.0-16.0); Mean Corpuscular Hgb Conc 33.8 g/dL (32-36); Mean Corpuscular Volume 96.4 fL (80-100); Mean Platelet Volume 10.3 fL (7.4-10.4); Platelet Count 220 K/uL (130-400); RDW Coefficient of Variation 16.2 % (11.5-14.5); RDW Standard Deviation 56.5 fL (36.4-46.3); Red Blood Count 2.79 M/uL (4.2-5.4); White Blood Count 15.18 K/uL (4.8-10.8)
[2019-03-23 22:59] LABS: INR 2.6 (0.9-1.1); Partial Thromboplastin Ratio 1.7; Prothrombin Time 25.3 Seconds (9.0-12.0)
[2019-03-23 23:01] LABS: Albumin Globulin Ratio 0.8 (0.9-2); Albumin Level 2.9 gm/dl (3.4-5.0); BUN Creatinine Ratio 21.7 (10-20); Bilirubin,Total 1.9 mg/dl (0.2-1); Creatinine Clr Calc Pharmacy 37.1 ml/min; Est GFR (African American) 46.7; Est GFR (Non-African American) 40.3; Globulin 3.6 gm/dl (2.5-4.0); Potassium 4.4 mmol/L (3.5-5.1); Total Protein 6.5 gm/dl (6.4-8.2)
[2019-03-23 23:05] LABS: Partial Thromboplastin Time 45.6 Seconds (21.0-31.0)
[2019-03-23 23:12] LABS: Basophils # (auto) 0.01 K/uL (0-0.2); Basophils % (auto) 0.1 %; Eosinophils # (auto) 0.02 K/uL (0-0.5); Eosinophils % (auto) 0.1 %; Immature Granulocytes # (auto) 0.05 K/uL (0.00-0.02); Immature Granulocytes % (auto) 0.3 %; Lymphocytes # (auto) 0.55 K/uL (1.2-3.4); Lymphocytes % (auto) 3.6 %; Monocytes # (auto) 2.22 K/uL (0.11-0.59); Monocytes % (auto) 14.6 %; Neutrophils # (auto) 12.33 K/uL (1.4-6.5); Neutrophils % (auto) 81.3 %
[2019-03-24] MEDS ORDERED: NITROGLYCERIN SL 0.4 MG/TAB TAB SL PRN (01:12)
[2019-03-24] MEDS ORDERED: ACETAMINOPHEN 325 MG TAB PO PRN (01:12)
[2019-03-24] MEDS ORDERED: OXYCODONE HCL IR 5 MG TAB (IMMEDIATE RELEASE) PO STA (01:12)
[2019-03-24] MEDS ORDERED: ONDANSETRON INJ 2 MG/ML 2 ML VIAL IV PRN (01:12)
--- NOTE | 2019-03-24 01:12 | Emergency Department Note ---
Entered by Hawa Tavarez acting as a scribe for Michael Grubbs MD History of Present Illness General Chief complaint: Shoulder Pain Stated complaint: LEFT SHOULDER PAIN S/P SURGERY Time Seen by Provider: 03/23/19 21:21 Source: patient Limitations: no limitations History of Present Illness Provider complaint: shoulder pain Onset (ago): hour(s) Location: upper extremity (shoulder) and left Radiation: non-radiation Associated symptoms: + other (+left shoulder swelling); no chest pain, no fever/chills and no shortness of breath Treatments prior to arrival: other (+1 Oxycodone) The patient is a 78 year old female who presents to the Emergency Room with complaints of left shoulder pain that began earlier in the day prior to arrival. The patient states that she had a reverse left shoulder replacement 3 days prior to arrival. The patient states that she received 2 units of blood 1 day prior to arrival and then stated that she had therapy prior to being discharged. The patient states that she was discharged from the hospital 8.5 hours prior to arrival and states that she was in pain when she was discharged. The patient states that she took 1 Oxycodone for her pain 3.5 hours prior to arrival. The patient states that she has swelling in her left shoulder. The patient denies any chest pain, shortness of breath, or fevers. The patient denies any recent falls. The patient states that she is allergic to morphine. The patient states that she takes Coumadin. Home Medications Home Medications Medication Instructions Recorded Confirmed Type Lactobacillus acidophilus capsule 2 cap PO HS cap 07/11/18 03/23/19 History aspirin 81 mg tablet,delayed 81 mg PO [id number] tab 07/11/18 03/23/19 History release folic acid 1 mg tablet 1 mg PO QAM 07/11/18 03/23/19 History montelukast 10 mg tablet 10 mg PO QPM 07/11/18 03/23/19 History nitroglycerin 0.4 mg sublingual 0.4 mg SL Q5M PRN 07/11/18 03/23/19 History tablet ranitidine 150 mg capsule 150 mg PO QPM 07/11/18 03/23/19 History warfarin 2 mg tablet 2 mg PO [id number] tab 07/11/18 03/23/19 History warfarin 4 mg tablet 4 mg PO 3XWK tab 07/11/18 03/23/19 History fluticasone propionate [Flonase 1 spray INTRANASAL ONCE PRN 08/16/18 03/23/19 History Allergy Relief] docusate sodium 100 mg PO BID 1 Days #2 cap 03/23/19 03/23/19 Rx enoxaparin [Lovenox] 80 mg SUBCUT BID #0 ml 03/23/19 03/23/19 Rx ferrous gluconate 324 mg PO BIDM 1 Days #2 tab 03/23/19 03/23/19 Rx furosemide 40 mg PO QAM #1 tab 03/23/19 03/23/19 Rx hydrocodone-acetaminophen [[place]] 1 tab PO UD PRN 03/23/19 03/23/19 History metoprolol succinate 37.5 mg PO BID #1 tab 03/23/19 03/23/19 Rx oxycodone-acetaminophen [Percocet] 1 tab PO Q6H PRN #15 tab 03/23/19 03/23/19 Rx polyethylene glycol 3350 [Miralax] 17 g PO DAILY PRN 1 Days #1 ea 03/23/19 03/23/19 Rx tramadol 0 mg PO Q6H PRN 03/23/19 03/23/19 History Allergies Allergy/AdvReac Type Severity Reaction Status Date / Time adhesive Allergy Mild RASH & Verified 03/23/19 22:32 BLISTERS NSAIDS (Non-Steroidal AdvReac Intermediate ADVISED TO Verified 03/23/19 22:32 Anti-Inflamma AVOID DUE TO KIDNEY DISEASE morphine AdvReac Mild "SENSITIVITY"- Verified 03/23/19 22:32 "go crazy" Past Med/Surg History Social History Preferred Language: Arabic Communication Ability: Effective Visual Impairment: No Limitations Beliefs That Will Affect Care: None marital status: / Current Living Situation: Alone Feels Safe at Home: Yes Smoking Status: Never smoker Second Hand Exposure: Yes ("YEARS AGO") Hx Alcohol Use: Yes Alcohol type: hard liquor Hx Substance Use: No Review of Systems See HPI for pertinent positives & negatives. and A total of 10 systems reviewed and were otherwise negative Physical Exam Vital Signs Vital Signs - 24 hr 03/23/19 21:20 03/23/19 22:03 03/23/19 22:46 Temperature 36.5 C Temperature Source Oral Sepsis Recent Fever Within 48 Hours No Sepsis Action Taken by Nursing No Action Required Pulse Rate 80 Pulse Rate [Finger] 61 Respiratory Rate 18 18 Blood Pressure 157/75 H Blood Pressure [Right Arm] 111/92 Blood Pressure Mean 102 Blood Pressure Mean [Right Arm] 98 Pulse Oximetry 91 96 100 Oxygen Delivery Method Room Air Nasal Cannula Nasal Cannula Oxygen Flow Rate 2 2 03/23/19 23:28 03/24/19 00:52 Temperature Temperature Source Sepsis Recent Fever Within 48 Hours Sepsis Action Taken by Nursing Pulse Rate Pulse Rate [Finger] 63 60 Respiratory Rate 18 18 Blood Pressure Blood Pressure [Right Arm] 172/66 H 167/82 H Blood Pressure Mean Blood Pressure Mean [Right Arm] 101 110 Pulse Oximetry 95 98 Oxygen Delivery Method Nasal Cannula Nasal Cannula Oxygen Flow Rate 2 2 General: Non-ill appearing older female in no acute distress. Wearing shoulder sling, post-operative dressing on left shoulder with small amount of blood on it, no active bleeding. HEENT: Normal cephalic atraumatic. Pupils are equal round and reactive to light. Extraocular movements are intact. Oropharynx is pink with moist mucous membra sheri. No swelling of the mouth lips or tongue. Neck: Supple with a midline trachea. No meningeal signs or stiffness, no JVD or bruits. No Stridor. Chest: Clear to auscultation bilaterally. No wheezes or rhonchi. No increased work of breathing. Heart: regular rate and rhythm. Abdomen: Soft nontender, nondistended without rebound guarding or rigidity. Extremities: No cyanosis clubbing. No calf tenderness or asymmetry. Left shoulder is swollen and tender, no redness or warmth. Spine/Back. Non tender to palpation. No CVA tenderness Skin: Good turgor without rashes. Neurologic exam: Cranial nerves two through 12 are intact. Motor and sensation are intact and symmetrical throughout. Course 2123: The patient was evaluated in room C6, and a complete history and physical examination were performed. 2340: I checked on the patient and updated her on her results. The patient needs more Dilaudid. 2345: I reviewed the patient's case with Dr. Velasco- [facility] Hospitalist who suggests speaking with [facility] about admitting the patient. 2358: I reviewed the patient's case with Dr. Lyons- Orthopedics who will evaluate the patient for further hospitalization. Consultations Consultation #1: Dr. Velasco- [facility] Hospitalist Time: 23:45 Consultation #2: Dr. Lyons- Orthopedics Time: 23:58 Administered Medications Discontinued Medications Hydromorphone HCl (Dilaudid) 0.5 mg IV NOW STA Stop: 03/23/19 21:47 Last Admin: 03/23/19 22:43 Dose: 0.5 mg Documented by: [id number] Hydromorphone HCl (Dilaudid) 0.25 mg IV NOW STA Stop: 03/23/19 23:26 Last Admin: 03/23/19 23:29 Dose: 0.25 mg Documented by: [id number] Medical Decision Making Differential Diagnosis Differential Diagnosis:post-operative pain, post-operative bleeding, infection. Medical Records Attestation: I reviewed the patient's medical records. Home Medications Current Medication List: was personally reviewed by me Laboratory Data Attestation: I reviewed the patient's lab results. Result diagrams: 03/23/19 22:25 03/23/19 22:25 Lab Results 03/23/19 03/23/19 03/23/19 Range/Units 22:25 22:25 22:25 WBC 15.18 H (4.8-10.8) K/uL RBC 2.79 L (4.2-5.4) M/uL Hgb 9.1 L (12.0-16.0) g/dL Hct 26.9 L (37-47) % MCV 96.4 (80-100) fL MCH 32.6 (25-34) pg MCHC 33.8 (32-36) g/dL RDW Std Deviation 56.5 H (36.4-46.3) fL RDW Coeff of Demetrio 16.2 H (11.5-14.5) % Plt Count 220 D (130-400) K/uL MPV 10.3 (7.4-10.4) fL Immature Gran % (Auto) 0.3 % Neut % (Auto) 81.3 % Lymph % (Auto) 3.6 % [place] % (Auto) 14.6 % Eos % (Auto) 0.1 % Baso % (Auto) 0.1 % Immature Gran # (Auto) 0.05 H (0.00-0.02) K/uL Neut # (Auto) 12.33 H (1.4-6.5) K/uL Lymph # (Auto) 0.55 L (1.2-3.4) K/uL [place] # (Auto) 2.22 H (0.11-0.59) K/uL Eos # (Auto) 0.02 (0-0.5) K/uL Baso # (Auto) 0.01 (0-0.2) K/uL PT 25.3 H (9.0-12.0) Seconds INR 2.6 H (0.9-1.1) APTT 45.6 H* (21.0-31.0) Seconds PTT Ratio 1.7 Sodium 136 (136-145) mmol/L Potassium 4.4 D (3.5-5.1) mmol/L Chloride 102 (98-107) mmol/L Carbon Dioxide 27 (21-32) mmol/L Anion Gap 7.0 (3-11) BUN 28 H (7-18) mg/dl Creatinine 1.28 H (0.6-1.2) mg/dl Est Cr Clr Drug Dosing 37.1 ml/min Est GFR ( Amer) 46.7 Est GFR (Non-Af Amer) 40.3 BUN/Creatinine Ratio 21.7 H (10-20) Glucose 198 H (70-99) mg/dl Calcium 9.0 (8.5-10.1) mg/dl Total Bilirubin 1.9 H (0.2-1) mg/dl AST 24 (15-37) U/L ALT 12 (12-78) U/L Alkaline Phosphatase 138 H (45-117) U/L Total Protein 6.5 (6.4-8.2) gm/dl Albumin 2.9 L (3.4-5.0) gm/dl Globulin 3.6 (2.5-4.0) gm/dl Albumin/Globulin Ratio 0.8 L (0.9-2) Lipase 75 (73-393) U/L Imaging Data Radiologist's Impression: Radiology results as stated below per my review and the radiologist's interpretation: XR shoulder LT min 2V routine CLINICAL HISTORY: left shoulder pain post surgery COMPARISON: 03/20/2019 DISCUSSION: There are postsurgical changes of a reverse total left shoulder arthroplasty. No acute fractures or dislocations are visualized. Overlying skin jorge are evident. There is been interval removal of the surgical drain. IMPRESSION: 1. Postsurgical changes of a reverse total left shoulder arthroplasty 2. No acute fractures or dislocations identified Electronically signed by: Dillon Bagley M.D. 03/23/2019 10:46 PM ECG Data Rate (beats per minute): 83 Blood Pressure Blood Pressure Findings: Elevated blood pressure Blood Pressure Disposition: further management by hospitalist MDM Narrative This patient comes in as described above. She was placed in room C6. She is here for treatment and evaluation of shoulder pain she was just discharged today after having shoulder replacement. She said prior to discharge she was having pain she went home took some pain medication that they gave her but it is severe. She has had no fall or trauma. she did do physical therapy and thinks that could have aggravated it. She has no fever. The shoulder is markedly swollen. there is no active bleeding and it is not red or warm. She appears uncomfortable. she is in no respiratory distress. IV access established was given Dilaudid 0.5 mg IV. She was still having pain but seemed a little sleepy so she second dose she was just given 0.25 mg Dilaudid IV. she seemed to do very well with this and is not overtly sedated but seems comfortable. Her white count is elevated compared to what was this morning so there is concern for possible infection although clinically. there is no fever or redness. hemoglobin is stable. her INR is elevated compared to this morning in the mid 2 range and is possible. she could have had some bleeding into the joint. I do think she needs to be admitted for pain management and further treatment and evaluation. I did discuss the case with the [facility] hospitalist as well as Dr. Castellano and she will be admitted to the orthopedic service. Impression & Plan Acute postoperative pain of left shoulder, Hemarthrosis Discharge Plan Visit Data Chief Complaint: Shoulder Pain Stated Complaint: LEFT SHOULDER PAIN S/P SURGERY ED Provider: Michael Grubbs Discharge Problem: Acute postoperative pain of left shoulder, Hemarthrosis Patient Disposition: Being Evaluated by Hospitalist Discharge Instructions Interventions: ED Discharge Assessment Last Done: 03/24/19 00:55 The scribe's documentation has been prepared under my direction and personally reviewed by me in its entirety. I confirm that the note above accurately reflects all work, treatment, procedures, and medical decision making performed by me.
[2019-03-24] MEDS: D5W AND 1/4NSS 1,000 ML IV SCH ×2 (01:34→12:56)
--- NOTE | 2019-03-24 02:13 | Consultation ---
Date of Consultation March 24, 2019 Assessment & Plan (1) Acute postoperative pain of left shoulder: 1. Acute postoperative shoulder pain. Patient s/p reverse total shoulder arthroplasty performed by Dr. Sosa on 03/20/19 - POD #4. significant pain unrelieved by PO pain medication. Patient with significant bruising at surgical site, firm area raises question of hematoma. No evidence of infection. XR with normal post-operative changes. - Pain control per primary team. Tylenol, Dilaudid and Oxycodone. -Ice -Bowel regimen 2. CAD s/p AL in 2013 - patient presently CP free, no EKG evidence of ischemia -Continue ASA 81mg po daily -Resume Metoprolol 37.5mg po BID 3. GARFIELD during hospital stay, Cr peaked at 1.7. Most likely secondary to ATN in setting of acute blood loss. Presently BUN=28, Cr=1.28 which is near baseline. +UOP -Monitor BUN, Cr, electrolytes and UOP -Renal dosing where appropriate -Avoid nephrotoxic agents -Maintenance IVF -Plan to resume Lasix 40mg daily on 03/26 4. Anemia - s/p 2U prbcs. +Bruising of shoulder, patient on Coumadin -Monitor CBC -Monitor INR -Continue iron 5. Type 2 diabetes mellitus: - Hemoglobin A1C was 6.2. - SSI coverage. 6. Atrial fibrillation: - S/p AV junction ablation and insertion of dual chamber/bi-ventricular pacemaker in May 2016. - Continue Metoprolol -Continue Coumadin - monitor CBC, shoulder bruising and INR 7. Sarcoidosis -stable, chronic -monitor 8. Chronic respiratory failure with hypoxia: - Chronically requires 2L via NC at home in setting of sarcoidosis. 9. Chronic congestive heart failure: - Most recent TTE in Oct 2017 showed EF 55%, reduced right systolic f unction. - Monitor net I/Os and daily weights. - Resume BB -Resume Lasix on Monday 03/26 10. Obstructive sleep apnea: - Wears CPAP qhs. 11. Hypertension: -Continue Metoprolol -Continue to monitor 12. Hyperlipidemia: - Not currently on statin therapy. 13. Pulmonary HTN: - Severe pulm HTN noted on TTE in 2016. - Requires 2L via NC chronically. 14. Valvular heart disease: - Moderate mitral regurg and severe tricuspid regurg noted on TTE in Oct 2017. -No evidence of CHF -Continue to monitor 15. Obesity: - BMI 35 - encourage weight loss and exercise. 16. DVT prophylaxis: - Patient on Coumadin -Continue Ranitidine and Protonix at home doses F/E/N - maintenance fluids, monitor electrolytes and replete as needed, CC/Heart healthy diet as tolerated Code - Full Dispo - Med/Surge History of Present Illness Reason for Consultation: post-operative medical management Attending Physician: Heath Sosa MD History of Present Illness Mrs. Margarita Hendrix is a pleasant 78yo female with multiple medical comorbidities, notably CAD s/p AL, HTN, HLP, AF on anticoagulation, DM, CKD and Sarcoidosis. Patient was recently admitted to [facility] on 03/18/19 with complaint of progressive left shoulder pain and weakness which had failed conservative treatment. Patient had reverse total shoulder arthroplasty performed by Dr. Sosa on 03/20/19, EBL 500mL. She had a hemovac drain placed and was admitted to the medical floor. She did fairly well in the post-operative period. She had low UOP with some mild GARFIELD, Cr peaked at 1.7. She was administerd IV fluid and home Lasix was held. She had acute anemia with Hg of 7.3 requiring transfusion of 2u PRBCs on 03/22. Patient participated in physical therapy yesterday which was challenging for her. She was discharged home yesterday evening. She reports taking a Tramadol prior to discharge. She had considerable pain in the shoulder upon arriving home. She took 5mg of Oxycodone at 18:00 with minimal relief so she returned to the hospital. Presently with pain 04/21. No additional complaints - no CP/SOB/dizziness. No abdominal pain/nausea/vomiting/diarrhea or constipation. ER Course: Dilaudid 0.5mg, 0.25mg, D5NSS, Oxycodone 5mg Allergies Allergy/AdvReac Type Severity Reaction Status Date / Time adhesive Allergy Mild RASH & Verified 03/23/19 22:32 BLISTERS NSAIDS (Non-Steroidal AdvReac Intermediate ADVISED TO Verified 03/23/19 22:32 Anti-Inflamma AVOID DUE TO KIDNEY DISEASE morphine AdvReac Mild "SENSITIVITY"- Verified 03/23/19 22:32 "go crazy" Home Medications Home Medications Medication Instructions Recorded Confirmed Type Lactobacillus acidophilus capsule 2 cap PO HS cap 07/11/18 03/23/19 History aspirin 81 mg tablet,delayed 81 mg PO MONWEDFRI tab 07/11/18 03/23/19 History release folic acid 1 mg tablet 1 mg PO QAM 07/11/18 03/23/19 History montelukast 10 mg tablet 10 mg PO QPM 07/11/18 03/23/19 History nitroglycerin 0.4 mg sublingual 0.4 mg SL Q5M PRN 07/11/18 03/23/19 History tablet ranitidine 150 mg capsule 150 mg PO QPM 07/11/18 03/23/19 History warfarin 2 mg tablet 2 mg PO 4XWK tab 07/11/18 03/23/19 History warfarin 4 mg tablet 4 mg PO 3XWK tab 07/11/18 03/23/19 History fluticasone propionate [Flonase 1 spray INTRANASAL ONCE PRN 08/16/18 03/23/19 History Allergy Relief] docusate sodium 100 mg PO BID 1 Days #2 cap 03/23/19 03/23/19 Rx enoxaparin [Lovenox] 80 mg SUBCUT BID #0 ml 03/23/19 03/23/19 Rx ferrous gluconate 324 mg PO BIDM 1 Days #2 tab 03/23/19 03/23/19 Rx furosemide 40 mg PO QAM #1 tab 03/23/19 03/23/19 Rx hydrocodone-acetaminophen [[place]] 1 tab PO UD PRN 03/23/19 03/23/19 History metoprolol succinate 37.5 mg PO BID #1 tab 03/23/19 03/23/19 Rx oxycodone-acetaminophen [Percocet] 1 tab PO Q6H PRN #15 tab 03/23/19 03/23/19 Rx polyethylene glycol 3350 [Miralax] 17 g PO DAILY PRN 1 Days #1 ea 03/23/19 03/23/19 Rx tramadol 0 mg PO Q6H PRN 03/23/19 03/23/19 History Patient History Social History Preferred Language: Syrian Communication Ability: Effective Visual Impairment: No Limitations N[employer] Weeds And Pest Inspector Required: No Beliefs That Will Affect Care: None marital status: / Current Living Situation: Alone Feels Safe at Home: Yes Safety Concerns: Feels Safe At This Time Smoking Status: Never smoker Second Hand Exposure: Yes ("YEARS AGO") Hx Alcohol Use: Yes Alcohol type: hard liquor Hx Substance Use: No Review of Systems Review of Systems: All systems reviewed & are unremarkable except as noted in HPI & below Physical Exam Physical Exam: General: patient resting comfortably, NAD, non-toxic in appearance, AA&O x 4 Skin: warm, dry, intact, significant bruising of left shoulder, bruising of bilateral knees HEENT: NC/AT, PERRL, EOMI, anicteric sclera, conjunctiva without injection, external ear normal to inspection and nontender, nares patent, moist mucus membranes, dentition intact, no oropharyngeal lesions, neck supple, trachea midline, no LAD, no thyromegaly, no JVD Heart: +S1/S2, regular, no m/r/g Lungs: equal air entry bilaterally, no rales/rhonchi/wheezes Abd: +BS, soft, NT/ND, no masses/organomegaly/ascites Ext: warm, 2+ pulses in UE/LE bilaterally, no clubbing/cyanosis or edema, left arm in sling, neurovascularly intact Neuro: nonfocal, patient AA&O x 4, speech intact, no facial droop, moving all extremities on command with equal strength 5/5 Results & Data Vital Signs (Past 12 Hours) Vital Signs Temp Pulse Pulse Resp BP BP Pulse Ox 03/24/19 00:52 60 18 167/82 H 98 03/23/19 23:28 63 18 172/66 H 95 03/23/19 22:46 61 18 111/92 100 03/23/19 22:03 96 03/23/19 21:20 36.5 C 80 18 157/75 H 91 Laboratory Results Lab Results 03/23/19 03/23/19 03/23/19 Range/Units 22:25 22:25 22:25 WBC 15.18 H (4.8-10.8) K/uL RBC 2.79 L (4.2-5.4) M/uL Hgb 9.1 L (12.0-16.0) g/dL Hct 26.9 L (37-47) % MCV 96.4 (80-100) fL MCH 32.6 (25-34) pg MCHC 33.8 (32-36) g/dL RDW Std Deviation 56.5 H (36.4-46.3) fL RDW Coeff of Demetrio 16.2 H (11.5-14.5) % Plt Count 220 D (130-400) K/uL MPV 10.3 (7.4-10.4) fL Immature Gran % (Auto) 0.3 % Neut % (Auto) 81.3 % Lymph % (Auto) 3.6 % Atlantic % (Auto) 14.6 % Eos % (Auto) 0.1 % Baso % (Auto) 0.1 % Immature Gran # (Auto) 0.05 H (0.00-0.02) K/uL Neut # (Auto) 12.33 H (1.4-6.5) K/uL Lymph # (Auto) 0.55 L (1.2-3.4) K/uL Atlantic # (Auto) 2.22 H (0.11-0.59) K/uL Eos # (Auto) 0.02 (0-0.5) K/uL Baso # (Auto) 0.01 (0-0.2) K/uL PT 25.3 H (9.0-12.0) Seconds INR 2.6 H (0.9-1.1) APTT 45.6 H* (21.0-31.0) Seconds PTT Ratio 1.7 Sodium 136 (136-145) mmol/L Potassium 4.4 D (3.5-5.1) mmol/L Chloride 102 (98-107) mmol/L Carbon Dioxide 27 (21-32) mmol/L Anion Gap 7.0 (3-11) BUN 28 H (7-18) mg/dl Creatinine 1.28 H (0.6-1.2) mg/dl Est Cr Clr Drug Dosing 37.1 ml/min Est GFR ( Amer) 46.7 Est GFR (Non-Af Amer) 40.3 BUN/Creatinine Ratio 21.7 H (10-20) Glucose 198 H (70-99) mg/dl Calcium 9.0 (8.5-10.1) mg/dl Total Bilirubin 1.9 H (0.2-1) mg/dl AST 24 (15-37) U/L ALT 12 (12-78) U/L Alkaline Phosphatase 138 H (45-117) U/L Total Protein 6.5 (6.4-8.2) gm/dl Albumin 2.9 L (3.4-5.0) gm/dl Globulin 3.6 (2.5-4.0) gm/dl Albumin/Globulin Ratio 0.8 L (0.9-2) Lipase 75 (73-393) U/L Diagnostic Findings XR shoulder LT min 2V routine CLINICAL HISTORY: left shoulder pain post surgery COMPARISON: 03/20/2019 DISCUSSION: There are postsurgical changes of a reverse total left shoulder arthroplasty. No acute fractures or dislocations are visualized. Overlying skin jorge are evident. There is been interval removal of the surgical drain. IMPRESSION: 1. Postsurgical changes of a reverse total left shoulder arthroplasty 2. No acute fractures or dislocations identified Electronically signed by: Dillon Bagley M.D. 03/23/2019 10:46 PM Dictated: 03/23/19 2245 Transcribed: 03/23/19 2245
[2019-03-24] MEDS ORDERED: CARBOHYDRATES FOR HYPOGLYCEMIA PO PRN (02:26)
[2019-03-24] MEDS ORDERED: DEXTROSE 50% 50 ML SYRINGE IV PRN (02:26)
[2019-03-24] MEDS ORDERED: GLUCAGON FOR INJ 1 MG VIAL SQ PRN (02:26)
[2019-03-24] MEDS ORDERED: GLUCOSE 10 TABS/TUBE PO PRN (02:26)
[2019-03-24] MEDS ORDERED: GLUCOSE 40% GEL 15 GM TUBE PO PRN (02:26)
[2019-03-24 05:09] LABS: Appearance Urine Cloudy (Clear); Bilirubin Urine Negative (Negative); Blood Urine Negative (Negative); Color Urine Dark Yellow; Epithelial Cell Urine Auto >30 /lpf (0-5); Glucose Urine UA Negative (Negative); Ketones Urine Negative (Negative); Leukocyte Esterase Urine 1+ (Negative); Nitrite Urine Negative (Negative); Protein Urine Negative (Negative); Specific Gravity Urine 1.021 (1.000-1.030); Urobilinogen Urine Negative (Negative)
[2019-03-24] MEDS: HYDROmorphone INJ 0.5 MG/0.5 ML SYR IV PRN ×3 (06:13→21:19)
[2019-03-24 06:21] LABS: Calcium Oxalate Crystals Urine Present (None Prsent); RBC Urine Automated 0-4 /hpf (0-4)
[2019-03-24 06:26] LABS: Bacteria Urine Automated 1+ (Negative)
[2019-03-24 06:37] LABS: Basophils # (auto) 0.01 K/uL (0-0.2); Basophils % (auto) 0.1 %; Eosinophils # (auto) 0.06 K/uL (0-0.5); Eosinophils % (auto) 0.4 %; Hematocrit (blood only) 23.8 % (37-47); Immature Granulocytes # (auto) 0.08 K/uL (0.00-0.02); Immature Granulocytes % (auto) 0.5 %; Lymphocytes # (auto) 1.23 K/uL (1.2-3.4); Lymphocytes % (auto) 7.9 %; Mean Corpuscular Hgb Conc 33.6 g/dL (32-36); Mean Corpuscular Volume 96.7 fL (80-100); Mean Platelet Volume 10.4 fL (7.4-10.4); Monocytes # (auto) 2.41 K/uL (0.11-0.59); Monocytes % (auto) 15.5 %; Neutrophils # (auto) 11.73 K/uL (1.4-6.5); Neutrophils % (auto) 75.6 %; Platelet Count 195 K/uL (130-400); RDW Coefficient of Variation 16.1 % (11.5-14.5); RDW Standard Deviation 56.1 fL (36.4-46.3); Red Blood Count 2.46 M/uL (4.2-5.4); White Blood Count 15.52 K/uL (4.8-10.8)
[2019-03-24 06:55] LABS: Prothrombin Time 28.7 Seconds (9.0-12.0)
[2019-03-24 07:14] LABS: Calcium 8.9 mg/dl (8.5-10.1); Creatinine Clr Calc Pharmacy 40.3 ml/min; Est GFR (African American) 51.5; Est GFR (Non-African American) 44.5; Potassium 4.1 mmol/L (3.5-5.1)
[2019-03-24] MEDS: METOPROLOL SUCC 25MG EXT REL TAB PO SCH ×2 (08:45→20:06)
[2019-03-24] MEDS: FOLIC ACID 1 MG TAB PO SCH (08:45)
[2019-03-24] MEDS: FERROUS GLUCONATE 324 MG TAB PO SCH ×2 (08:46→20:06)
[2019-03-24] MEDS: FUROSEMIDE 40 MG TAB PO SCH (08:46)
[2019-03-24] MEDS: DOCUSATE SODIUM 100 MG CAP PO SCH ×2 (08:46→20:06)
[2019-03-24] MEDS ORDERED: PANTOprazole 40 MG TAB PO SCH (09:00)
[2019-03-24] MEDS ORDERED: ASPIRIN 81 MG ECTAB PO SCH (09:00)
--- NOTE | 2019-03-24 09:14 | Hospitalist Progress Note ---
Date of Service March 24, 2019 Assessment & Plan (1) Acute postoperative pain of left shoulder: 1. Acute postoperative shoulder pain. Patient s/p reverse total shoulder arthroplasty performed by Dr. Sosa on 03/20/19 - POD #4. significant pain unrelieved by PO pain medication. Patient with significant bruising at surgical site, firm area raises question of hematoma. No evidence of infection. XR with normal post-operative changes. - Pain control per primary team. Tylenol, Dilaudid and Oxycodone. -Ice -Bowel regimen 2. CAD s/p ID in 2013 - patient presently CP free, no EKG evidence of ischemia -Continue ASA 81mg po daily -Resume Metoprolol 37.5mg po BID 3. GARFIELD during hospital stay, Cr peaked at 1.7. Most likely secondary to ATN in setting of acute blood loss. Presently BUN=28, Cr=1.28 which is near baseline. +UOP -Monitor BUN, Cr, electrolytes and UOP -Renal dosing where appropriate -Avoid nephrotoxic agents -Maintenance IVF -Plan to resume Lasix 40mg daily on 03/26 4. Anemia - s/p 2U prbcs. +Bruising of shoulder, patient on Coumadin -Monitor CBC -Monitor INR -Continue iron 5. Type 2 diabetes mellitus: - Hemoglobin A1C was 6.2. - SSI coverage. 6. Atrial fibrillation: - S/p AV junction ablation and insertion of dual chamber/bi-ventricular pacemaker in May 2016. - Continue Metoprolol -Continue Coumadin - monitor CBC, shoulder bruising and INR 7. Sarcoidosis -stable, chronic -monitor 8. Chronic respiratory failure with hypoxia: - Chronically requires 2L via NC at home in setting of sarcoidosis. 9. Chronic congestive heart failure: - Most recent TTE in Oct 2017 showed EF 55%, reduced right systolic functi on. - Monitor net I/Os and daily weights. - Resume BB -Resume Lasix on Monday 03/26 10. Obstructive sleep apnea: - Wears CPAP qhs. 11. Hypertension: -Continue Metoprolol -Continue to monitor 12. Hyperlipidemia: - Not currently on statin therapy. 13. Pulmonary HTN: - Severe pulm HTN noted on TTE in 2016. - Requires 2L via NC chronically. 14. Valvular heart disease: - Moderate mitral regurg and severe tricuspid regurg noted on TTE in Oct 2017. -No evidence of CHF -Continue to monitor 15. Obesity: - BMI 35 - encourage weight loss and exercise. 16. DVT prophylaxis: - Patient on Coumadin -Continue Ranitidine and Protonix at home doses F/E/N - maintenance fluids, monitor electrolytes and replete as needed, CC/Heart healthy diet as tolerated Code - Full Dispo - Med/Surge Results & Data Vital Signs (Past 12 Hours) Vital Signs Temp Pulse Pulse Pulse Resp BP BP 03/24/19 07:42 36.4 C L 60 17 134/68 03/24/19 01:05 36.5 C 66 16 169/73 H 03/24/19 00:52 60 18 167/82 H 03/23/19 23:28 63 18 172/66 H 03/23/19 22:46 61 18 111/92 03/23/19 22:03 03/23/19 21:20 36.5 C 80 18 157/75 H Pulse Ox 03/24/19 07:42 97 03/24/19 01:05 97 03/24/19 00:52 98 03/23/19 23:28 95 03/23/19 22:46 100 03/23/19 22:03 96 03/23/19 21:20 91
--- NOTE | 2019-03-24 09:27 | History & Physical Report ---
Date of Service March 24, 2019 Assessment & Plan (1) Acute postoperative pain of left shoulder: Postoperative day #4 Left reverse total shoulder replacement, now with intractable pain, worsening left shoulder hematoma. INR 3.0 today, will hold anticoagulation at this time. Will obtain ultrasound of left shoulder and upper arm. Nonweightbearing left upper extremity. We will hold physical therapy at this time. Ice to the surgical site. Medical consultation placed, Recs appreciated. Will discuss with Dr. Sosa for any further intervention/recommendations. History of Present Illness Chief Complaint: Intractable left shoulder pain status post reverse total shoulder replacement Primary Care Provider: Farheen Mayo MD The patient is a 78-year-old female who is 4 days status post left reverse total shoulder replacement by Dr. Welsh. Did well perioperatively and was discharged on 03/23/2019. Patient subsequently returned to the emergency department the same day of discharge with increasing pain to the left shoulder and swelling. Denies fevers chills, denies numbness tingling to the left upper extremity, denies shortness of breath or chest pain and trauma. Patient was subsequently admitted for further inpatient observation and treatment. Patient was being bridged Lovenox to Coumadin upon discharge. Allergies Allergy/AdvReac Type Severity Reaction Status Date / Time adhesive Allergy Mild RASH & Verified 03/23/19 22:32 BLISTERS NSAIDS (Non-Steroidal AdvReac Intermediate ADVISED TO Verified 03/23/19 22:32 Anti-Inflamma AVOID DUE TO KIDNEY DISEASE morphine AdvReac Mild "SENSITIVITY"- Verified 03/23/19 22:32 "go crazy" Home Medications Home Medications Medication Instructions Recorded Confirmed Type Lactobacillus acidophilus capsule 2 cap PO HS cap 07/11/18 03/23/19 History aspirin 81 mg tablet,delayed 81 mg PO MONWEDFRI tab 07/11/18 03/23/19 History release folic acid 1 mg tablet 1 mg PO QAM 07/11/18 03/23/19 History montelukast 10 mg tablet 10 mg PO QPM 07/11/18 03/23/19 History nitroglycerin 0.4 mg sublingual 0.4 mg SL Q5M PRN 07/11/18 03/23/19 History tablet ranitidine 150 mg capsule 150 mg PO QPM 07/11/18 03/23/19 History warfarin 2 mg tablet 2 mg PO 4XWK tab 07/11/18 03/23/19 History warfarin 4 mg tablet 4 mg PO 3XWK tab 07/11/18 03/23/19 History fluticasone propionate [Flonase 1 spray INTRANASAL ONCE PRN 08/16/18 03/23/19 History Allergy Relief] docusate sodium 100 mg PO BID 1 Days #2 cap 03/23/19 03/23/19 Rx enoxaparin [Lovenox] 80 mg SUBCUT BID #0 ml 03/23/19 03/23/19 Rx ferrous gluconate 324 mg PO BIDM 1 Days #2 tab 03/23/19 03/23/19 Rx furosemide 40 mg PO QAM #1 tab 03/23/19 03/23/19 Rx hydrocodone-acetaminophen [[place]] 1 tab PO UD PRN 03/23/19 03/23/19 History metoprolol succinate 37.5 mg PO BID #1 tab 03/23/19 03/23/19 Rx oxycodone-acetaminophen [Percocet] 1 tab PO Q6H PRN #15 tab 03/23/19 03/23/19 Rx polyethylene glycol 3350 [Miralax] 17 g PO DAILY PRN 1 Days #1 ea 03/23/19 03/23/19 Rx tramadol 0 mg PO Q6H PRN 03/23/19 03/23/19 History Past Med/Surg History Social History Preferred Language: Maltese Communication Ability: Effective Visual Impairment: No Limitations Fish Culturist Required: No Beliefs That Will Affect Care: None marital status: / Current Living Situation: Alone Feels Safe at Home: Yes Safety Concerns: Feels Safe At This Time Smoking Status: Never smoker Second Hand Exposure: Yes ("YEARS AGO") Hx Alcohol Use: Yes Alcohol type: hard liquor Hx Substance Use: No Review of Systems Review of Systems: All systems reviewed & are unremarkable except as noted in HPI & below Constitutional: as per Subjective / HPI Physical Exam Physical Exam: Left upper extremity neurovascular sensory intact, incision clean dry and intact, +2 radial pulse, capillary refill less than 2 seconds, left shoulder positive edema, compartments full but compressible, positive tenderness to palpation. Constitutional: WD/WN, vitals as above Eyes: PERRL, conjunctivae normal, anicteric sclerae ENMT: external ear and nose normal, oropharynx normal Neck: trachea midline, no thyromegaly Respiratory: normal respiratory effort, lungs clear to auscultation Cardiovascular: RRR, no murmur, no edema Gastrointestinal (Abdomen): normal bowel sounds, soft, nontender, no hepatosplenomegaly Musculoskeletal: no cyanosis or clubbing, extremities motor strength 5/5 Skin: no rashes, warm and dry Neurologic: patellar DTR's 2+ bilat, sensation intact Psychiatric: A+Ox3, euthymic affect Lymphatic: no cervical or axillary lymphadenopathy Results & Data Vital Signs (Past 12 Hours) Vital Signs Temp Pulse Pulse Resp BP Pulse Ox 03/24/19 07:42 36.4 C L 60 17 134/68 97 03/24/19 01:05 36.5 C 66 16 169/73 H 97 03/24/19 00:52 60 18 167/82 H 98 03/23/19 23:28 63 18 172/66 H 95 03/23/19 22:46 61 18 111/92 100 03/23/19 22:03 96 Diagnostic Findings Patient: ERNESTINE BRAR Date: 03/24/19 MR#: [id number]: [address] Acct ID:[id number]: [facility] Zip[facility] [place] [address] Age: 78Location: 3N Sex: F [facility]Bed: [facility] Att Phy: Hetah Sosa M.D.Diagnosis: INTRACTABLE PAIN/PAIN CONTROL Amarilys Phy: Farheen Mayo MDService Date: 03/24/19 Fam Phy: Interpreting Phy: Lion Means MD Admit Phy: Matheus Butler D.O. Ordering Phy: Jose M Murray PA-C cc: ~ extremity nonvascular CLINICAL HISTORY: Left shoulder/upper arm. Size of hematoma COMPARISON STUDY: No previous studies for comparison. FINDINGS: Large complex collection presumably in post procedural hematoma and/or seroma adjacent to the left humerus. Maximum dimensions are 10 x 6 x 5 cm. IMPRESSION: Large hematoma/seroma adjacent to the proximal humerus. This measures 10 x 6 x 5 cm. XR shoulder LT min 2V routine CLINICAL HISTORY: left shoulder pain post surgery COMPARISON: 03/20/2019 DISCUSSION: There are postsurgical changes of a reverse total left shoulder arthroplasty. No acute fractures or dislocations are visualized. Overlying skin jorge are evident. There is been interval removal of the surgical drain. IMPRESSION: 1. Postsurgical changes of a reverse total left shoulder arthroplasty 2. No acute fractures or dislocations identified
[2019-03-24] MEDS: INSULIN ASPART 100 UNITS/ML 3 ML PEN SC SCH ×4 (10:48→21:48)
--- NOTE | 2019-03-24 12:26 | Ultrasound Report ---
US extremity nonvascular CLINICAL HISTORY: Left shoulder/upper arm. Size of hematoma COMPARISON STUDY: No previous studies for comparison. FINDINGS: Large complex collection presumably in post procedural hematoma and/or seroma adjacent to t he left humerus. Maximum dimensions are 10 x 6 x 5 cm. IMPRESSION: Large hematoma/seroma adjacent to the proximal humerus. This measures 10 x 6 x 5 cm. The above report was generated using voice recognition software. It may contain grammatical, syntax or spelling errors. Electronically signed by: Lion Means M.D. 03/24/2019 12:24 PM
[2019-03-24] MEDS ORDERED: SODIUM CHLORIDE 0.9% 250 ML IV PRN ×2 (12:40→14:00)
[2019-03-24] MEDS ORDERED: HEPARIN SOD 5,000 UNIT/0.5 ML VIAL SQ SCH (14:00)
[2019-03-24] MEDS ORDERED: FUROSEMIDE 20 MG in SYRINGE 0 ML IV SCH (14:15)
[2019-03-24] MEDS ORDERED: PHYTONADIONE 5 MG TAB PO STA (15:10)
[2019-03-24] MEDS ORDERED: PHYTONADIONE PED 1.25 MG, ORA-SWEET SYRUP 2.25 ML, ORA-PLUS SUSP VEHICLE 2.25 ML, BARCO... PO STA (15:20)
--- NOTE | 2019-03-24 15:56 | Hospitalist Progress Note ---
Date of Service March 24, 2019 Assessment & Plan (1) Acute postoperative pain of left shoulder: Acute postoperative shoulder pain. Patient s/p reverse total shoulder arthroplasty performed by Dr. Sosa on 03/20/19 - Patient with significant bruising at surgical site, firm area raises question of hematoma. No evidence of infection. XR with normal post-operative changes. - Pain control per primary team. Tylenol, Dilaudid and Oxycodone. Acute blood loss anemia, will transfuse additional 2 units and Lasix between CAD s/p DC in 2013 - patient presently CP free, no EKG evidence of ischemia even in the side of her anemia We will hold her aspirin given the concern for bleeding Metoprolol 37.5mg po BID GARFIELD during hospital stay, Cr peaked at 1.7. Most likely secondary to ATN in setting of acute blood loss. -Renal dosing where appropriate -Avoid nephrotoxic agents Acute blood loss anemia - s/p 2U prbcs last hospitalization additional 2 units 03/24. +Bruising of shoulder, patient on Coumadin will give vitamin K Consider surgical washout 03/25 -Continue iron Type 2 diabetes mellitus: - Hemoglobin A1C was 6.2. - SSI coverage. Atrial fibrillation: - S/p AV junction ablation and insertion of dual chamber/bi-ventricular pacemaker in May 2016. - Continue Metoprolol -Continue Coumadin -no need to bridge at time of discharge in fact may delay Coumadin start if bleeding is significant Chronic respiratory failure with hypoxia: - Chronically requires 2L via NC at home in setting of sarcoidosis. Chronic diastolic congestive heart failure: Or preserved ejection fraction heart failure - Most recent TTE in Oct 2017 showed EF 55%, reduced right systolic function. - Monitor net I/Os and daily weights. - Resume BB -Resume Lasix when able Obstructive sleep apnea: - Wears CPAP qhs. Pulmonary HTN: - Severe pulm HTN noted on TTE in 2017. Requires 2L via NC chronically. Hypertension: -Continue Metoprolol Valvular heart disease: - Moderate mitral regurg and severe tricuspid regurg noted on TTE in Oct 2017. -No evidence of CHF -Continue to monitor Obesity: - BMI 35 - encourage weight loss and exercise. DVT prophylaxis: -Coumadin is held at this time may consider sequential compression devices postoperatively Code - Full Dispo - Med/Surge Subjective Patient looks significantly pale she has had reasonably significant distress also of her left shoulder there is a lot of postoperative swelling. Repeat of her hemoglobin did reveal her hemoglobin had reduced further to 7.8. She is agreeable verbally to me to a transfusion and we would sign transfusion consent from her previous visit on the chart. I personally spoke to the Coumadin clinic we will give her a 1.25 mg dose of vitamin K recheck INR in the morning and may have her receive additional vitamin K if the INR is still significantly elevated in the morning Review of Systems Review of Systems: ROS: In mild to moderate distress according to the patient No double vision blurry vision No problems with speech or swallowing No palpitations, chest pain or pressure No Wheezing or breathing issues No abdominal pain nausea vomiting diarrhea No burning urine urine frequency or changes in color Left shoulder pain and swelling no numbness or tingling to her fingers No skin rashes or oral lesions No focused back pain or numbness or loss of strength No changes in memory or confusion Physical Exam Physical Exam: ROS: well nourished well developed. She is in mild to moderate discomfort No double vision blurry vision No problems with speech or swallowing No palpitations, chest pain or pressure No Wheezing or breathing issues No abdominal pain nausea vomiting diarrhea changes in appetite or weight No burning urine urine frequency or changes in color Her left shoulder is markedly swollen it is doughy and indurated consistent with some fluid in her tissues No skin rashes or oral lesions Left shoulder l bruising but no bleeding No focused back pain or numbness or loss of strength No changes in memory or confusion Results & Data Vital Signs (Past 12 Hours) Vital Signs Temp Pulse Pulse Resp BP Pulse Ox 03/24/19 15:19 36.6 C 59 L 19 135/72 97 03/24/19 07:42 36.4 C L 60 17 134/68 97
--- NOTE | 2019-03-24 15:57 | Orthopedic Progress Note ---
Date of Service March 24, 2019 Assessment & Plan (1) Acute postoperative pain of left shoulder: Postoperative day #4 Left reverse total shoulder replacement, now with intractable pain, worsening left shoulder hematoma. INR 3.0 today, will hold anticoagulation at this time. Will obtain ultrasound of left shoulder and upper arm. Nonweightbearing left upper extremity. We will hold physical therapy at this time. Ice to the surgical site. Medical consultation placed, Recs appreciated. Recommend reversing her anticoagulation and proceeding with evacuation of hematoma placement of drains. Would recommend not placing her on Lovenox postop. Ice on a regular basis to the shoulder and elevate in bed pending reversal of INR. Subjective Uncomfortable due to swelling and shoulder Review of Systems Review of Systems: Upon discharge home patient had some swelling but was not tense or painful like it is now. This gradually progressively became worse over time. Physical Exam Physical Exam: Left shoulder with tense hematoma and significant swelling about the whole shoulder area and upper arm. Ecchymosis extends all way down to the hand. She is good radial pulse brisk capillary refill and normal distal neurological exam. Results & Data Vital Signs (Past 12 Hours) Vital Signs Temp Pulse Pulse Resp BP Pulse Ox 03/24/19 15:19 36.6 C 59 L 19 135/72 97 03/24/19 07:42 36.4 C L 60 17 134/68 97
[2019-03-24] MEDS ORDERED: WARFARIN SOD 4 MG TAB PO SCH (16:00)
[2019-03-24] MEDS: PANTOprazole 40 MG TAB PO SCH (20:06)
[2019-03-24] MEDS: LACTOBACILLUS ACIDOPHILUS (FLORANEX) TAB PO SCH (20:06)
[2019-03-24] MEDS: MONTELUKAST SODIUM 10 MG TABLET PO SCH (20:08)
[2019-03-24] MEDS ORDERED: NYSTATIN POWDER 15GM BTL EXT PRN (23:11)
[2019-03-25] MEDS ORDERED: Nursing to Pharmacy Communication ONE ×2 (02:10→19:36)
[2019-03-25] MEDS: INSULIN ASPART 100 UNITS/ML 3 ML PEN SC SCH ×3 (06:10→19:32)
[2019-03-25 07:12] LABS: Calcium 8.4 mg/dl (8.5-10.1); Creatinine Clr Calc Pharmacy 45.2 ml/min; Est GFR (African American) 59.3; Est GFR (Non-African American) 51.2; Potassium 3.7 mmol/L (3.5-5.1)
[2019-03-25 08:09] LABS: Basophils # (auto) 0.02 K/uL (0-0.2); Basophils % (auto) 0.2 %; Eosinophils # (auto) 0.39 K/uL (0-0.5); Eosinophils % (auto) 3.2 %; Hematocrit (blood only) 26.8 % (37-47); Hemoglobin 8.9 g/dL (12.0-16.0); Immature Granulocytes # (auto) 0.09 K/uL (0.00-0.02); Immature Granulocytes % (auto) 0.7 %; Lymphocytes # (auto) 0.86 K/uL (1.2-3.4); Lymphocytes % (auto) 7.2 %; Mean Corpuscular Hgb Conc 33.2 g/dL (32-36); Mean Corpuscular Volume 93.4 fL (80-100); Mean Platelet Volume 10.2 fL (7.4-10.4); Monocytes # (auto) 2.16 K/uL (0.11-0.59); Neutrophils # (auto) 8.49 K/uL (1.4-6.5); Neutrophils % (auto) 70.7 %; Nucleated RBC # (auto) 0.07 K/uL (0-0); Nucleated RBC % (auto) 0.6 %; Platelet Count 173 K/uL (130-400); RDW Coefficient of Variation 18.2 % (11.5-14.5); Red Blood Count 2.87 M/uL (4.2-5.4); White Blood Count 12.01 K/uL (4.8-10.8)
[2019-03-25] MEDS: PANTOprazole 40 MG TAB PO SCH ×2 (08:23→20:47)
[2019-03-25] MEDS: FUROSEMIDE 40 MG TAB PO SCH (08:23)
[2019-03-25] MEDS: METOPROLOL SUCC 25MG EXT REL TAB PO SCH ×2 (08:23→20:48)
[2019-03-25] MEDS: FERROUS GLUCONATE 324 MG TAB PO SCH ×2 (08:24→19:27)
[2019-03-25] MEDS: FOLIC ACID 1 MG TAB PO SCH (08:24)
[2019-03-25] MEDS: DOCUSATE SODIUM 100 MG CAP PO SCH ×2 (08:24→20:47)
[2019-03-25 08:28] LABS: INR 2.2 (0.9-1.1); Prothrombin Time 21.6 Seconds (9.0-12.0)
[2019-03-25] MEDS: HYDROmorphone INJ 0.5 MG/0.5 ML SYR IV PRN ×2 (09:02→14:30)
[2019-03-25] MEDS: D5W AND 1/4NSS 1,000 ML IV SCH ×2 (09:02→22:24)
[2019-03-25] MEDS ORDERED: PHYTONADIONE 5 MG TAB PO STA (09:10)
--- NOTE | 2019-03-25 09:12 | Hospitalist Progress Note ---
Date of Service March 25, 2019 Assessment & Plan (1) Acute postoperative pain of left shoulder: Acute postoperative shoulder pain. Patient s/p reverse total shoulder arthroplasty performed by Dr. Sosa on 03/20/19 - Patient with significant bruising at surgical site, firm area raises question of hematoma. No evidence of infection. XR with normal post-operative changes. -Plan for surgical evacuation hematoma once INR is therapeutic Acute blood loss anemia, status post 4 units of blood tolerated transfusion without fluid overload CAD s/p UT in 2013 - patient presently CP free, no EKG evidence of ischemia even in the side of her anemia We will hold her aspirin given the concern for bleeding Metoprolol 37.5mg po BID GARFIELD during hospital stay, Cr peaked at 1.7. Most likely secondary to ATN in setting of acute blood loss. -Renal dosing where appropriate -Avoid nephrotoxic agents Acute blood loss anemia - s/p 2U prbcs last hospitalization additional 2 units 03/24. +Bruising of shoulder, patient on Coumadin had given vitamin K Consider surgical washout 03/25 -Continue iron Type 2 diabetes mellitus: - Hemoglobin A1C was 6.2. - SSI coverage. Atrial fibrillation: - S/p AV junction ablation and insertion of dual chamber/bi-ventricular pacemaker in May 2016. - Continue Metoprolol Coumadin -no need to bridge at time of discharge in fact may delay Coumadin start if bleeding is significant Chronic respiratory failure with hypoxia: - Chronically requires 2L via NC at home in setting of sarcoidosis. Chronic diastolic congestive heart failure: Or preserved ejection fraction heart failure - Most recent TTE in Oct 2017 showed EF 55%, reduced right systolic function. - Monitor net I/Os and daily weights. - Resume BB -Resume Lasix when able Obstructive sleep apnea: - Wears CPAP qhs. Pulmonary HTN: - Severe pulm HTN noted on TTE in 2016. Requires 2L via NC chronically. Hypertension: -Continue Metoprolol Valvular heart disease: - Moderate mitral regurg and severe tricuspid regurg noted on TTE in Oct 2017. -No evidence of CHF -Continue to monitor Obesity: - BMI 35 - encourage weight loss and exercise. DVT prophylaxis: -Coumadin is held at this time may consider sequential compression devices postoperatively Code - Full Dispo - Med/Surge Subjective Patient is having some minor neuropathy to her arm significant swelling in her shoulder she arising does have intact sensation and just altered slightly. Review of Systems Review of Systems: ROS: well nourished well developed. No double vision blurry vision No problems with speech or swallowing No palpitations, chest pain or pressure No Wheezing or breathing issues No abdominal pain nausea vomiting diarrhea changes in appetite or weight No burning urine urine frequency or changes in color Significant shoulder pain and swelling at the site No skin rashes or oral lesions If he can bruising at the site with concern for hematoma No focused back pain or numbness or loss of strength No changes in memory or confusion Physical Exam Physical Exam: The patient appeared well nourished and normally developed. Vital signs as documented. Head exam is unremarkable. normocephalic, atraumatic Neck is without jugular venous distension, thyromegaly, or lymphademopathy Lungs are clear to auscultation and percussion. Cardiac exam reveals Rhythm is regular. First and second heart sounds normal. Abdominal exam reveals normal bowel sounds, no masses, no organomegaly Left shoulder is markedly swollen there is intact capillary refill distally and gross sensations intact she can adduct her thumb without issues Neurologic exam is A&Ox3, no focal deficits, strength is equal bilateral Psychologically seems neither anxious or depressed Skin is warm Dry skin swelling Results & Data Vital Signs (Past 12 Hours) Vital Signs Temp Pulse Pulse Resp BP BP Pulse Ox 03/25/19 07:35 03/25/19 07:15 36.8 C 18 114/69 100 03/25/19 01:29 36.8 C 65 18 122/72 95 03/24/19 23:00 36.7 C 60 16 131/78 99 03/24/19 22:30 36.7 C 59 L 16 120/66 100 03/24/19 22:05 36.7 C 60 19 120/54 L 99 03/24/19 21:30 36.7 C 60 18 121/71 100 Pulse Ox 03/25/19 07:35 100 03/25/19 07:15 03/25/19 01:29 03/24/19 23:00 03/24/19 22:30 03/24/19 22:05 03/24/19 21:30
[2019-03-25] MEDS ORDERED: PHYTONADIONE PED 1.25 MG, ORA-SWEET SYRUP 2.25 ML, ORA-PLUS SUSP VEHICLE 2.25 ML, BARCO... PO ONE (09:30)
--- NOTE | 2019-03-25 10:40 | Anesthesiology Consultation ---
Date of Service March 25, 2019 Pantograph I Engraver recommending postprocedure pacer interrogation--OR made aware for rep to be present. Cardiology Clearance 03/06/19: "Pacemaker interrogation this coming week. Given plan left shoulder surgery caution will need be made giving placement of cautery patches with pacemaker in vicinity. Device should be reinterrogated postp rocedure. Anti-platelet therapy with aspirin should be continued throughout the procedure and full anticoagulation resumed as soon as possible postop with bridge anticoagulation ordered. Current pulmonary exacerbation should be stable prior to proceeding*. Patient following with Dr. Walton. Jolene procedure oxygen supplementation and CPAP supplementation should be continued. The patient underwent shoulder surgery on 03/20/19. She has had pain and ecchymosis in her shoulder according to orthopedics and will undergo a shoulder hematoma evacuation today. She was found to be anemic and transfused 2 units PRBC. The patient has a pacemaker and the pacemaker rep is to be called to interrogate the pacemaker in the PACU. Other significant medical history includes severe pulmonary hypertension and the patient being on anticoagulation with elevated INR and PTT. Patient was discussed with Dr. Hand and Dr. Zapata. Assessment & Plan (1) Encounter for pre-operative examination: Chart Review Chart Review: Acceptable Risk for Surgery and Patient NOT seen in Pre Admission Testing Consults Requested none History Surgery Operation Date: 03/25/19 08:40 Proposed Procedures p Open Evacuation Hematoma Shoulder Left - Heath Sosa MD Height/Weight Height: 5 ft 1 in Weight: 88 kg Allergies Allergy/AdvReac Type Severity Reaction Status Date / Time adhesive Allergy Mild RASH & Verified 03/23/19 22:32 BLISTERS NSAIDS (Non-Steroidal AdvReac Intermediate ADVISED TO Verified 03/23/19 22:32 Anti-Inflamma AVOID DUE TO KIDNEY DISEASE morphine AdvReac Mild "SENSITIVITY"- Verified 03/23/19 22:32 "go crazy" Medications Home Medications Medication Instructions Recorded Confirmed Last Taken Lactobacillus acidophilus capsule 2 cap PO HS cap 07/11/18 03/23/19 03/18/19 20:00 aspirin 81 mg tablet,delayed 81 mg PO MONWEDFRI tab 07/11/18 03/23/19 03/21/19 release folic acid 1 mg tablet 1 mg PO QAM 07/11/18 03/23/19 03/18/19 08:00 montelukast 10 mg tablet 10 mg PO QPM 07/11/18 03/23/19 03/18/19 20:00 nitroglycerin 0.4 mg sublingual 0.4 mg SL Q5M PRN 07/11/18 03/23/19 Unknown tablet ranitidine 150 mg capsule 150 mg PO QPM 07/11/18 03/23/19 03/23/19 16:30 warfarin 2 mg tablet 2 mg PO 4XWK tab 07/11/18 03/23/19 03/23/19 16:30 warfarin 4 mg tablet 4 mg PO 3XWK tab 07/11/18 03/23/19 03/12/19 21:00 fluticasone propionate [Flonase 1 spray INTRANASAL ONCE PRN 08/16/18 03/23/19 03/17/19 20:00 Allergy Relief] enoxaparin [Lovenox] 80 mg SUBCUT BID #0 ml 03/23/19 03/23/19 03/23/19 18:00 furosemide 40 mg PO QAM #1 tab 03/23/19 03/23/19 03/18/19 07:00 hydrocodone-acetaminophen [Walker] 1 tab PO UD PRN 03/23/19 03/23/19 03/23/19 18:00 metoprolol succinate 37.5 mg PO BID #1 tab 03/23/19 03/23/19 03/19/19 06:00 oxycodone-acetaminophen [Percocet] 1 tab PO Q6H PRN #15 tab 03/23/19 03/23/19 Unknown tramadol 0 mg PO Q6H PRN 03/23/19 03/23/19 03/23/19 12:00 Active Medications Generic Name Dose Route Start Last Admin Trade Name Freq PRN Reason Stop Dose Admin Aspirin 81 mg 03/24/19 09:00 03/24/19 08:46 Ecotrin Ectab PO 04/23/19 08:59 81 mg [id number] JEROMY Administration Docusate Sodium 100 mg 03/24/19 09:00 03/25/19 08:24 Colace PO 04/23/19 08:59 100 mg BID JEROMY Administration Ferrous Gluconate 324 mg 03/24/19 08:00 03/25/19 08:24 Ferrous Gluconate PO 04/23/19 07:59 324 mg BIDM JEROMY Administration Folic Acid 1 mg 03/24/19 09:00 03/25/19 08:24 Folvite PO 04/23/19 08:59 1 mg QAM JEROMY Administration Furosemide 40 mg 03/24/19 09:00 03/25/19 08:23 Lasix PO 04/23/19 08:59 40 mg QAM JEROMY Administration Hydromorphone HCl 0.5 mg 03/24/19 01:12 03/25/19 09:02 Dilaudid IV 04/07/19 01:11 0.5 mg Q4H PRN Administration Pain Dextrose/Sodium Chloride 1,000 mls @ 80 mls/hr 03/24/19 00:15 03/25/19 09:02 D5w And 1/4nss IV 04/23/19 00:14 80 mls/hr .[id number] JEROMY Administration Insulin Aspart 0 units 03/25/19 06:00 03/25/19 06:10 Novolog Flexpen SC 04/24/19 05:59 1 units Q6 JEROMY Administration Lactobacillus Acidophilus 2 tab 03/24/19 21:00 03/24/19 20:06 Floranex PO 04/23/19 20:59 2 tab HS JEROMY Administration Metoprolol Succinate 37.5 mg 03/24/19 09:00 03/25/19 08:23 Toprol Xl PO 04/23/19 08:59 37.5 mg BID JEROMY Administration Montelukast Sodium 10 mg 03/24/19 21:00 03/24/19 20:08 Singulair PO 04/23/19 20:59 10 mg QPM JEROMY Administration Nystatin 1 appln 03/24/19 23:11 03/25/19 06:08 Mycostatin EXT 04/23/19 23:10 1 appln BID PRN Administration Affected Skin Folds Pantoprazole Sodium 40 mg 03/24/19 21:00 03/25/19 08:23 Protonix PO 04/23/19 20:59 40 mg BID JEROMY Administration NPO Date Last Intake of Fluids: 03/24/19 Time Last Intake of Fluids: 23:59 Date Last Intake of Solids: 03/24/19 Time Last Intake of Solids: 23:59 Past Medical History Medical History Hyponatremia Pulmonary hypertension Atrial fibrillation Paroxysmal, then persistent with difficult to control rhythm and rate, ultimately requiring AV junction ablation and insertion of dual-chamber BiV pacer 05/2016 CAD (coronary artery disease) s/p CT and cath 2012, not amenable to PCI CHF (congestive heart failure) Right sided 2/2 elevated pulmonary pressures/sarcoidosis CKD (chronic kidney disease) stage 3, GFR 30-59 ml/min Cough Currently with exacerbation of underlying pulm issues. On Doxy with recent Prednisone course. Pre-op CXR 03/07 showed no acute disease. Seen by PCP 03/14 for f/u-- "cough appears much improved." GERD (gastroesophageal reflux disease) H/O acute myocardial infarction 2012 HTN (hypertension) History of diabetes mellitus, type II Diet controlled Hypercalcemia Hyperlipidemia HISTORY Obesity Obstructive sleep apnea on CPAP On home oxygen therapy 2/2 SARCOIDOSIS. O2 AT 2L PRN Sarcoidosis pulmonary and ocular involvement Spinal stenosis Past Family History Family History Grandfather No problems noted. Grandmother No problems noted. Aunt Family history of diabetes mellitus Grandmother (Paternal) Family history of diabetes mellitus Grandfather (Paternal) Family history of diabetes mellitus Past Surgical History Surgical History Status post reverse total arthroplasty of right shoulder Status post reverse arthroplasty of left shoulder 03/20/1919 Grade 1 view Mac 3 blade Fusion of spine T12-L5 (~2013) H/O cardiac radiofrequency ablation 2015 H/O tubal ligation History of cardiac cath 2012 History of carpal tunnel release BILATERAL History of colonoscopy History of repair of rotator cuff RT SHOULDER S/P cardiac pacemaker procedure [employer] DEVICE/DR. RIDLEY CHECKS DEVICE APT 03/10/19 S/P rotator cuff repair 2012, complicated by post-op embolic CT, thrombus observed Total knee replacement status R knee (TOTAL OF 8 SURGERIES) Social History Smoking Status: Never smoker Hx Alcohol Use: Yes Alcohol type: hard liquor alcohol intake frequency: a few times a week Hx Substance Use: No substance use type: does not use Physical Exam Vital Signs Last Vital Signs Temp 36.8 C 03/25/19 07:15 Pulse 65 03/25/19 01:29 Resp 18 03/25/19 07:15 BP 114/69 03/25/19 07:15 Pulse Ox 100 03/25/19 07:35 Testing Electrocardiogram Date: 03/06/19 V paced, rate 82 Chest X-Ray Date: 03/07/19 CLINICAL HISTORY: pat preoperative evaluation COMPARISON STUDY: 08/23/2018 FINDINGS: Mild elevation right hemidiaphragm. This is a chronic finding. Bipolar cardiac pacemaker with leads in good position. Lungs are considered clear. There is a small fixed hiatal hernia. IMPRESSION: Chronic and postoperative change. No acute process. The above report was generated using voice recognition software. It may contain grammatical, syntax or spelling errors. Electronically signed by: Lion Means M.D. 03/07/2019 1:33 PM Echocardiogram Date: 11/07/17 Other Testing Date: 11/07/17 EF: 55% There is normal left ventricular wall thickness. The left ventricular wall motion is normal. The LV The right ventricle is moderately dilated. The right ventricular systolic function is reduced as assessed by tricuspid annular plane systolic excursion (TAPSE) (TAPSE <1.6 cm). The left atrium is severely dilated. The right atrium is moderately dilated. Aortic valve sclerosis moderate, without significant aortic valvular stenosis. There is moderate mitral regurgitation. There is moderate to severe tricuspid regurgitation. Severe pulmonary hypertension is present. PASP = 65 mmHg Compared to prior study dated 05/18/2016, right ventricular dysfunction and pulmonary hypertension is now present. Laboratory Results 03/25/19 07:57 03/25/19 06:18 Blood Type A Positive 03/24/19 13:10 Rho(D) Type Cancelled 03/24/19 13:10 Antibody Screen NEGATIVE 03/24/19 13:10 PT 21.6 Seconds (9.0-12.0) H 03/25/19 07:57 INR 2.2 (0.9-1.1) H 03/25/19 07:57 APTT 45.6 Seconds (21.0-31.0) H* 03/23/19 22:25 Urine Color Dark Yellow 03/24/19 05:00 Urine Appearance Cloudy (Clear) A 03/24/19 05:00 Urine pH 5.0 (4.5-7.5) 03/24/19 05:00 Ur Specific Bowman 1.021 (1.000-1.030) 03/24/19 05:00 Urine Protein Negative (Negative) 03/24/19 05:00 Urine Glucose (UA) Negative (Negative) 03/24/19 05:00 Urine Ketones Negative (Negative) 03/24/19 05:00 Urine Nitrite Negative (Negative) 03/24/19 05:00 Ur Leukocyte Esterase 1+ (Negative) H 03/24/19 05:00 Urine WBC (Auto) 5-10 /hpf (0-5) H 03/24/19 05:00 Urine RBC (Auto) 0-4 /hpf (0-4) 03/24/19 05:00 U Hyaline Cast (Auto) 5-10 /lpf (0-5) H 03/24/19 05:00 U Epithel Cells (Auto) >30 /lpf (0-5) H 03/24/19 05:00 Urine Bacteria (Auto) 1+ (Negative) H 03/24/19 05:00 03/25/19 03/25/19 05:55 00:07 POC Glucose 143 H 130 H
--- NOTE | 2019-03-25 10:51 | Orthopedic Progress Note ---
Date of Service March 25, 2019 Assessment & Plan (1) Acute postoperative pain of left shoulder: Hematoma left shoulder extending distal into upper arm and into chest wall. POD 5 Left Reverse TSA Plan for OR today for evac of hematoma with Dr Sosa. INR 2.2 this AM. Vitamin K given this AM and repeat INR draw set for 1300. Subjective Pt sleeping upon arrival. Easily awoken. Pain controlled currently. States she just took a pain pill a little while ago. She's noticed a little more swelling coming into her hand. No other complaints. Physical Exam Physical Exam: Continues with hematoma of the left shoulder/upper arm. Noticed swelling now going into the hand and fingers today. Pt having less ROM with fingers due to swelling. States that the fingers now have a little decreased sensation today compared to yesterday. Cap refill less than 2 sec. Good wrist ROM. Able to flex/extend all fingers of the hand but does not have full flexion due to sweling into fingers. Results & Data Vital Signs (Past 12 Hours) Vital Signs Temp Pulse Resp BP Pulse Ox Pulse Ox 03/25/19 07:35 100 03/25/19 07:15 36.8 C 18 114/69 100 03/25/19 01:29 36.8 C 65 18 122/72 95 03/24/19 23:00 36.7 C 60 16 131/78 99
[2019-03-25] MEDS ORDERED: SODIUM CHLORIDE 0.9% 250 ML IV PRN (11:08)
[2019-03-25 13:58] LABS: Prothrombin Time 19.8 Seconds (9.0-12.0)
[2019-03-25] MEDS ORDERED: PHYTONADIONE 5 MG in SODIUM CHLORIDE 0.9% 50 ML IV ONE (14:50)
[2019-03-25] MEDS ORDERED: PHYTONADIONE 5 MG in SODIUM CHLORIDE 0.9% 50 ML IV STA (15:08)
[2019-03-25] MEDS ORDERED: WARFARIN SOD 2 MG TAB PO SCH (16:00)
[2019-03-25 17:25] LABS: INR 1.8 (0.9-1.1)
--- NOTE | 2019-03-25 18:55 | Anesthesiology Progress Note ---
Date of Service March 25, 2019 The patient's INR was checked at 1700 and was still 1.8, too high for surgery. Dr Kim is aware of this and will follow the patient overnight and attempt to optimize her INR at 1.5 or less. The case was re-scheduled for tomorrow formerly [facility]. Physical Exam Vital Signs: Last Vital Signs Temp 36.9 C 03/25/19 15:30 Pulse 62 03/25/19 15:30 Resp 18 03/25/19 15:30 BP 125/86 03/25/19 15:30 Pulse Ox 99 03/25/19 15:30 Results & Data Medications Administered Aspirin (Ecotrin Ectab) 81 mg PO [id number] [facility] Stop: 04/23/19 08:59 Last Admin: 03/24/19 08:46 Dose: 81 mg Documented by: [id number] Docusate Sodium (Colace) 100 mg PO BID [facility] Stop: 04/23/19 08:59 Last Admin: 03/25/19 08:24 Dose: 100 mg Documented by: [id number] Admin: 03/24/19 20:06 Dose: Not Given Documented by: [id number] Admin: 03/24/19 08:46 Dose: 100 mg Documented by: [id number] Ferrous Gluconate (Ferrous Gluconate) 324 mg PO BIDM [facility] Stop: 04/23/19 07:59 Last Admin: 03/25/19 08:24 Dose: 324 mg Documented by: [id number] Admin: 03/24/19 20:06 Dose: 324 mg Documented by: [id number] Admin: 03/24/19 08:46 Dose: 324 mg Documented by: [id number] Folic Acid (Folvite) 1 mg PO QAM [facility] Stop: 04/23/19 08:59 Last Admin: 03/25/19 08:24 Dose: 1 mg Documented by: [id number] Admin: 03/24/19 08:45 Dose: 1 mg Documented by: [id number] Furosemide (Lasix) 40 mg PO QAM [facility] Stop: 04/23/19 08:59 Last Admin: 03/25/19 08:23 Dose: 40 mg Documented by: [id number] Admin: 03/24/19 08:46 Dose: 40 mg Documented by: [id number] Hydromorphone HCl (Dilaudid) 0.5 mg IV Q4H PRN PRN Reason: Pain Stop: 04/07/19 01:11 Last Admin: 03/25/19 14:30 Dose: 0.5 mg Documented by: [id number] Admin: 03/25/19 09:02 Dose: 0.5 mg Documented by: [id number] Admin: 03/24/19 21:19 Dose: 0.5 mg Documented by: [id number] Admin: 03/24/19 16:08 Dose: 0.5 mg Documented by: [id number] Admin: 03/24/19 06:13 Dose: 0.5 mg Documented by: [id number] Dextrose/Sodium Chloride (D5w And 1/4nss) 1,000 mls @ 80 mls/hr IV .[id number] [facility] Stop: 04/23/19 00:14 Last Admin: 03/25/19 09:02 Dose: 80 mls/hr Documented by: [id number] Infusion: 03/25/19 07:26 Dose: 0 mls/hr Documented by: [id number] Infusion: 03/24/19 22:36 Dose: 80 mls/hr Documented by: [id number] Infusion: 03/24/19 16:00 Dose: 0 mls/hr Documented by: [id number] Admin: 03/24/19 12:56 Dose: 80 mls/hr Documented by: [id number] Infusion: 03/24/19 12:15 Dose: 0 mls/hr Documented by: [id number] Admin: 03/24/19 01:34 Dose: 80 mls/hr Documented by: [id number] Insulin Aspart (Novolog Flexpen) 0 units SC Q6 [facility] Stop: 04/24/19 05:59 Last Admin: 03/25/19 12:20 Dose: 1 units Documented by: [id number] Cosigned by: [id number] Admin: 03/25/19 06:10 Dose: 1 units Documented by: [id number] Cosigned by: [id number] Lactobacillus Acidophilus (Floranex) 2 tab PO HS [facility] Stop: 04/23/19 20:59 Last Admin: 03/24/19 20:06 Dose: 2 tab Documented by: [id number] Metoprolol Succinate (Toprol Xl) 37.5 mg PO BID [facility] Stop: 04/23/19 08:59 Last Admin: 03/25/19 08:23 Dose: 37.5 mg Documented by: [id number] Admin: 03/24/19 20:06 Dose: 37.5 mg Documented by: [id number] Admin: 03/24/19 08:45 Dose: 37.5 mg Documented by: [id number] Montelukast Sodium (Singulair) 10 mg PO QPM [facility] Stop: 04/23/19 20:59 Last Admin: 03/24/19 20:08 Dose: 10 mg Documented by: [id number] Nystatin (Mycostatin) 1 appln EXT BID PRN PRN Reason: Affected Skin Folds Stop: 04/23/19 23:10 Last Admin: 03/25/19 06:08 Dose: 1 appln Documented by: [id number] Pantoprazole Sodium (Protonix) 40 mg PO BID [facility] Stop: 04/23/19 20:59 Last Admin: 03/25/19 08:23 Dose: 40 mg Documented by: [id number] Admin: 03/24/19 20:06 Dose: 40 mg Documented by: [id number]
--- NOTE | 2019-03-25 19:03 | Anesthesiology Progress Note ---
Date of Service March 25, 2019 The patient's coags were checked at 1700 and her INR was still 1.8, too high for surgery. Dr. Kim was aware of this and will follow her overnight and attempt to optimize her INR to 1.5 or less. The case was re-scheduled for tomorrow afternoon. Anesthesia Post Procedure Vital Signs Vital Signs: Temp Pulse Pulse Resp BP BP Pulse Ox 03/25/19 15:30 36.9 C 62 18 125/86 99 03/25/19 15:25 03/25/19 07:35 03/25/19 07:15 36.8 C 18 114/69 100 03/25/19 01:29 36.8 C 65 18 122/72 95 03/24/19 23:00 36.7 C 60 16 131/78 99 03/24/19 22:30 36.7 C 59 L 16 120/66 100 03/24/19 22:05 36.7 C 60 19 120/54 L 99 03/24/19 21:30 36.7 C 60 18 121/71 100 03/24/19 21:04 36.5 C 60 19 129/78 100 03/24/19 20:30 36.5 C 63 20 139/80 95 03/24/19 20:02 36.4 C L 60 18 129/74 100 03/24/19 20:00 36.4 C L 60 18 129/74 100 03/24/19 19:48 36.4 C L 59 L 16 142/77 H 100 03/24/19 19:28 36.4 C L 60 20 136/76 100 03/24/19 19:06 36.4 C L 59 L 19 122/72 97 Pulse Ox 03/25/19 15:30 03/25/19 15:25 100 03/25/19 07:35 100 03/25/19 07:15 03/25/19 01:29 03/24/19 23:00 03/24/19 22:30 03/24/19 22:05 03/24/19 21:30 03/24/19 21:04 03/24/19 20:30 03/24/19 20:02 03/24/19 20:00 03/24/19 19:48 03/24/19 19:28 03/24/19 19:06 Pain Intensity Left Shoulder: Pain Intensity: 0
[2019-03-25] MEDS: MONTELUKAST SODIUM 10 MG TABLET PO SCH (20:47)
[2019-03-25] MEDS: LACTOBACILLUS ACIDOPHILUS (FLORANEX) TAB PO SCH (20:47)
[2019-03-25] MEDS ORDERED: INSULIN ASPART 100 UNITS/ML 3 ML PEN SC ONE (21:00)
[2019-03-26] MEDS: INSULIN ASPART 100 UNITS/ML 3 ML PEN SC SCH ×4 (00:01→21:06)
[2019-03-26 08:14] LABS: INR 1.3 (0.9-1.1); Prothrombin Time 13.2 Seconds (9.0-12.0)
[2019-03-26 08:28] LABS: BUN Creatinine Ratio 18.2 (10-20); Calcium 8.3 mg/dl (8.5-10.1); Creatinine Clr Calc Pharmacy 49.5 ml/min; Est GFR (African American) 66.1; Potassium 3.4 mmol/L (3.5-5.1)
[2019-03-26] MEDS: METOPROLOL SUCC 25MG EXT REL TAB PO SCH ×2 (09:21→21:05)
[2019-03-26] MEDS: PANTOprazole 40 MG TAB PO SCH ×2 (09:21→21:05)
--- NOTE | 2019-03-26 09:47 | Orthopedic Progress Note ---
Date of Service March 26, 2019 Assessment & Plan (1) Acute postoperative pain of left shoulder: Acute postoperative pain left shoulder secondary to hematoma collection. Hematoma does not appear to have gotten any bigger. INR has dropped to 1.3 and plans will be for open irrigation and debridement and evacuation of hematoma of the left shoulder by . Subjective Patient currently lying in bed awake and alert. No overt complaints this morning. She states she has less numbness in her fingers this morning. We discussed that her INR is 1.3 and the planned evacuation of hematoma will be done today. Physical Exam Physical Exam: Dressing is removed and the wound from her previous surgery is still well approximated. She continues with the large hematoma that extends from her lateral chest wall and goes laterally under the incision and distally just below the incision. Mild serous drainage noted on the dressing. Looking at her fingers, she has less swelling today. She states that the fingers are feeling better today and have less decreased sensation. She does have better range of motion today of the fingers. Results & Data Vital Signs (Past 12 Hours) Vital Signs Temp Pulse Resp BP Pulse Ox 03/26/19 09:20 61 107/60 100 03/26/19 07:14 36.9 C 60 20 99/63 L 100 03/26/19 00:02 36.8 C 60 16 112/69 93
[2019-03-26] MEDS: D5W AND 1/4NSS 1,000 ML IV SCH (10:58)
[2019-03-26] MEDS: FERROUS GLUCONATE 324 MG TAB PO SCH ×2 (12:51→21:04)
[2019-03-26] MEDS: DOCUSATE SODIUM 100 MG CAP PO SCH ×2 (12:51→21:05)
[2019-03-26] MEDS: FOLIC ACID 1 MG TAB PO SCH (12:52)
[2019-03-26] MEDS: FUROSEMIDE 40 MG TAB PO SCH (12:52)
[2019-03-26] MEDS ORDERED: PROPOFOL IV EMULSION 10 MG/ML 20 ML VIAL IV ONE (14:19)
[2019-03-26] MEDS ORDERED: DEXAMETHASONE SOD INJ 4 MG/ML VIAL ONE (14:19)
[2019-03-26] MEDS ORDERED: LIDOCAINE HCL 2% 2 ML VIAL/AMP(20MG/ML) INFIL ONE (14:19)
[2019-03-26] MEDS ORDERED: ePHEDrine sulfate 50 MG/ML SYR ONE (14:19)
[2019-03-26] MEDS ORDERED: ONDANSETRON INJ 2 MG/ML 2 ML VIAL ONE (14:19)
[2019-03-26] MEDS ORDERED: fentaNYL citrate 100 MCG/2 ML VIAL ONE (14:20)
[2019-03-26] MEDS ORDERED: MIDAZOLAM HCL 1 MG/ML 2ML VIAL ONE (14:20)
[2019-03-26] MEDS ORDERED: BACITRACIN INJ 50,000 UNIT VIAL ONE ×3 (16:35→17:49)
--- NOTE | 2019-03-26 16:43 | History & Physical Bridge Note ---
Date of Service March 26, 2019 History & Physical Bridge Note I have examined the patient, reviewed the History & Physical and in the interval since the performance of the History & Physical I have noted the following changes of clinical significance: hematoma left shoulder severe swelling but no compartment syndrome . numbness in ulnar nerve distribution from swelling at elbow and possible proximal around plexus. proceed with evacuation hematoma.
[2019-03-26] MEDS ORDERED: THROMBIN FOR SOLN 20000 UNIT KIT ONE (16:56)
--- NOTE | 2019-03-26 17:24 | Hospitalist Progress Note ---
Date of Service March 26, 2019 Assessment & Plan (1) Acute postoperative pain of left shoulder: Acute postoperative shoulder pain. Patient s/p reverse total shoulder arthroplasty performed by Dr. Sosa on 03/20/19 - Patient with significant bruising at surgical site, firm area raises question of hematoma. Continues with no evidence of infection. XR with normal post- operative changes. -Plan for surgical evacuation hematoma 03/26 Acute blood loss anemia, status post 4 units of blood tolerated transfusion without fluid overload hemoglobin stable in the 8 range CAD s/p MA in 2013 - patient presently CP free, no EKG evidence of ischemia even in the side of her anemia Continue to hold her aspirin given the concern for bleeding Metoprolol 37.5mg po BID [facility] during hospital stay, Cr peaked at 1.7. Most likely secondary to ATN in setting of acute blood loss. -Renal dosing where appropriate -Avoid nephrotoxic agents Acute blood loss anemia - s/p 2U prbcs last hospitalization additional 2 units 03/24. +Bruising of shoulder, patient on Coumadin had given vitamin K Consider surgical washout 03/26 -Continue iron Type 2 diabetes mellitus: - Hemoglobin A1C was 6.2. - SSI coverage. Atrial fibrillation: - S/p AV junction ablation and insertion of dual chamber/bi-ventricular pacemaker in May 2016. - Continue Metoprolol Coumadin -no need to bridge at time of discharge in fact may delay Coumadin start if bleeding is significant Chronic respiratory failure with hypoxia: - Chronically requires 2L via NC at home in setting of sarcoidosis. HFpEF Or preserved ejection fraction heart failure - Most recent TTE in Oct 2017 showed EF 55%, reduced right systolic function. - Monitor net I/Os and daily weights. - Resume BB -Resume Lasix when able does not need Lasix and concern for intraoperative fluid loss watching her overall volume status Obstructive sleep apnea: - Wears CPAP qhs. Pulmonary HTN: - Severe pulm HTN noted on TTE in 2016. Requires 2L via NC chronically. Hypertension: -Continue Metoprolol Valvular heart disease: - Moderate mitral regurg and severe tricuspid regurg noted on TTE in Oct 2017. -No evidence of CHF Obesity: - BMI 35 - encourage weight loss and exercise. DVT prophylaxis: -Coumadin is held at this time may consider sequential compression devices postoperatively Code - Full Dispo - Med/Surge Subjective Patient is awaiting surgery she still has significant swelling of her shoulder minor numbness to her hand and minor decrease loss of strength Review of Systems Review of Systems: ROS: Is a minor distress No double vision blurry vision No problems with speech or swallowing No palpitations, has pressure and pain at the swollen side of her left shoulder No Wheezing or breathing issues No abdominal pain nausea vomiting diarrhea changes in appetite or weight No burning urine urine frequency or changes in color Left shoulder pain No skin rashes or oral lesions No unusual bruising or bleeding No focused back pain or numbness to her left hand and decreased strength to her left hand No changes in memory or confusion Physical Exam Physical Exam: The patient appeared mild distress Vital signs as documented. Head exam is unremarkable. normocephalic, atraumatic Neck is without jugular venous distension, thyromegaly, or lymphademopathy Lungs are clear to auscultation and percussion. Cardiac exam reveals Rhythm is regular. First and second heart sounds normal. Abdominal exam reveals normal bowel sounds, no masses, no organomegaly Extremity shoulder is swollen and tender discolored Neurologic exam is A&Ox3, minor [id number] to her hand and moderate decreased strength Psychologically seems neither anxious or depressed Skin is warm / Dry marked bruising of the shoulder and chest Results & Data Vital Signs (Past 12 Hours) Vital Signs Temp Pulse Pulse Resp BP Pulse Ox Pulse Ox 03/26/19 15:38 37.6 C H 62 13 126/90 100 03/26/19 09:20 61 107/60 100 03/26/19 07:42 99 03/26/19 07:14 36.9 C 60 20 99/63 L 100
[2019-03-26] MEDS ORDERED: ATROPINE SULFATE 0.1 MG/ML 10ML SYR IV PRN (18:17)
[2019-03-26] MEDS ORDERED: ePHEDrine sulfate 50 MG/ML AMP IV PRN (18:17)
[2019-03-26] MEDS ORDERED: ONDANSETRON INJ 2 MG/ML 2 ML VIAL IV PRN (18:17)
--- NOTE | 2019-03-26 18:23 | Post Operative Brief Note ---
Immediate Post Op Note v1 Date of Surgery March 26, 2019 Pre & Post Diagnosis Operation Date: 03/26/19 07:00 Pre-Op Diagnosis: left shoulder hematoma secondary to anticoagulation, status post reverse shoulder replacement Post-Op Diagnosis: Left shoulder hematoma secondary to anticoagulation, status post reverse shoulder replacement Procedure Operation Date: 03/26/19 07:00 Actual Procedures p Open Evacuation Hematoma Shoulder Left, with irrigation and debridement of muscle and fat(Left) placement of deep and superficial drains.- Heath Sosa MD Surgeon Heath Sosa MD [employer] Assistant Manager Jose M SCHULTZ Estimated Blood Loss 15 Findings Consistent with Post-Op Diagnosis Drains Hemovac Drain (two dual trocar 10F round drains placed intraop) Anesthesia Type General Regional Complications none Disposition Accompanied Patient To Recovery: No Disposition: Recovery Room Overlapping Procedure I was immediately available: during the entire case.
[2019-03-26] MEDS ORDERED: CEFAZOLIN 2000MG 2,000 MG/15 ML SYR IV ONE (18:48)
[2019-03-26] MEDS: fentaNYL citrate 100 MCG/2 ML VIAL IV PRN ×2 (19:00→19:05)
--- NOTE | 2019-03-26 19:20 | Anesthesiology Progress Note ---
Date of Service March 26, 2019 Anesthesia Post Procedure Vital Signs Vital Signs: Temp Pulse Pulse Resp BP Pulse Ox Pulse Ox 03/26/19 19:10 37.2 C 60 15 130/66 98 03/26/19 19:00 60 23 139/75 100 03/26/19 18:50 60 21 144/61 H 100 03/26/19 18:40 60 21 142/59 H 100 03/26/19 18:31 36.4 C L 70 20 146/71 H 100 03/26/19 15:38 37.6 C H 62 13 126/90 100 03/26/19 09:20 61 107/60 100 03/26/19 07:42 99 03/26/19 07:14 36.9 C 60 20 99/63 L 100 03/26/19 00:02 36.8 C 60 16 112/69 93 Pain Intensity Left Shoulder: Pain Intensity: 4 Transfer of Care Handoff Completed per policy Notes Mental Status: alert / awake / arousable Patient Amnestic to Procedure: Yes Nausea / Vomiting: adequately controlled Pain: adequately controlled Airway Patency, RR, SpO2: stable & adequate BP & HR: stable & adequate Hydration State: stable & adequate Anesthetic Complications: no major complications apparent and Pt Satisfied with anesthetic care Notes: The patient is awake and stable. Her pacemaker was reprogrammed in PACU by the rep. Her postop hgb was 9.3.
[2019-03-26] MEDS ORDERED: NALOXONE HCL 0.4 MG/1 ML VIAL/CARP IV PRN (19:51)
[2019-03-26] MEDS ORDERED: BISACODYL 10 MG SUPP PR PRN (19:51)
[2019-03-26] MEDS ORDERED: MAGNESIUM HYDROXIDE SUSP 30 ML UDC PO PRN (19:51)
[2019-03-26] MEDS: MONTELUKAST SODIUM 10 MG TABLET PO SCH (21:04)
[2019-03-26] MEDS: SENNA 8.6 MG TAB PO SCH (21:05)
[2019-03-26] MEDS: LACTOBACILLUS ACIDOPHILUS (FLORANEX) TAB PO SCH (21:05)
--- NOTE | 2019-03-26 22:47 | Operative Report ---
DATE OF OPERATION: 03/26/2019 INDICATION FOR PROCEDURE: The patient is a 78-year-old female who is status post a reverse total shoulder replacement of her left shoulder by myself. She has comorbidities of atrial fibrillation and a history of cardiac disease. Recommendation by medical service was to bridge her with Lovenox, place her back on her Coumadin. Postoperatively, she had some swelling but nothing over the unusual during her hospital stay and she had her drains removed after 48 hours. After she was discharged, she noted increased swelling in her left shoulder to the point where it became tense and swollen and painful. She came back to the hospital and was noted to have a hematoma by ultrasound. She had her anticoagulants reversed, but despite that had continued swelling in her shoulder and developed some hand swelling and numbness in her ulnar nerve distribution. She did have a previous history of carpal tunnel release. She had no evidence of compartment syndrome, with a tense hematoma in her shoulder area and drainage of the wound. No signs of infection. The patient required blood transfusion for blood loss. It took her several days for the INR to be reversed and we were able to proceed with the surgical procedure today on 03/26/2019. PREOPERATIVE DIAGNOSIS: Hematoma, left shoulder, secondary to anticoagulants, status post reverse total shoulder replacement, left shoulder. POSTOPERATIVE DIAGNOSIS: Hematoma, left shoulder, secondary to anticoagulants, status post reverse total shoulder replacement, left shoulder, with disruption of deltopectoral repair and some necrosis of the deltopectoral muscle and some fat necrosis due to wound separation. PROCEDURE: Incision, drainage, evacuation of hematoma; irrigation and debridement including debridement of muscle and subcutaneous tissue and closure over drains. SURGEON: Heath Sosa MD WOOD REPATCHER: MARION Crews ANESTHESIA: Regional block and general. ESTIMATED BLOOD LOSS: Fresh blood was 15 mL, old blood evacuated hematoma at least 300 mL. COMPLICATIONS: None. DRAINS: 2 deep and 2 superficial Hemovacs. OPERATIVE PROCEDURE: The patient was placed under general anesthetic. She was placed in the 30-degree beachchair position with a towel roll in the medial border of her left scapula. She was translated to left side of the bed so her shoulder could be manipulated as necessary. Her head was placed on a foam headrest. Her left upper extremity exam demonstrated a tense effusion, more toward the pectoral side of the incision toward the chest area. She had jorge in place. There was some clear serous drainage, no signs of pus or infection, no erythema. She had a couple of areas where the superficial skin was necrosed from blistering from the swelling. There is ecchymosis down her arm to her hand. There are no tense compartments at all. She did have swelling around the entire shoulder up into the base of her neck into her breast. We sterilely prepped and draped her arm with Betadine scrub and Betadine paint. The patient was identified and timeout was performed. She did have 2 grams of Ancef preop. The jorge were removed and the wound promptly opened up due to pressure. Just with digital palpation, I was able to open up the wound and using Metzenbaum scissors, we were able to cut some sutures and opened up the entire incision, at which time there was a gel-like serous material from hematoma tearing the serum. This was evacuated. Then more deep normal-appearing dark-colored hematoma was removed from deltopectoral interval. The deltopectoral interval repair had ruptured and some of the muscle ruptured along the edges medially and laterally of the deltoid and pectoral muscle with the sutures being disrupted. Some of the muscle had a brown necrotic appearance to it. The edges of the muscle was debrided and all the old suture material was removed. There was a membrane noted at the fat closure and this was debrided on both sides of the fat and all the subcutaneous sutures were removed. There was a cavity that was down along the medial arm between the muscle fascia and the subcutaneous tissues. This had a blood clot that was evacuated from this area. We used a rongeur and used suction. Then the wound was copiously irrigated out with multiple liters of antibiotic solution with bacitracin. After initial irrigation, we explored the subscap repair, which was completely intact. The joint was irrigated out of the hematoma as well. The joint was normally located and implants were stable. The subscap repair was intact with rotation. After thorough irrigation, we looked for any active bleeding, there were no active bleeders at all. There was old blood. At this time, the muscle edges that were necrotic were debrided back to good muscle tissue. The fat was debrided and then after further irrigation for a total of 12 liters of antibiotic solution and bacitracin, 2 drains were placed deep, one deep to the conjoined tendon and one posterior to the humerus deep to the deltoid. Then we placed one into the cavity of the subcutaneous area in the medial arm, and one laid down under the subcutaneous closure. Then I sprayed all the surfaces with a total of 20 mL of thrombin spray. Then the deltopectoral interval was repaired with [id number] #1 bacterial-resistant Vicryl suture. Then the subcutaneous tissues were closed with interrupted 2-0 bacterial-resistant Vicryl suture. The skin was closed with jorge. Xeroform was placed on the incision and Xeroform placed on the areas of skin breakdown from the blistering. We placed sterile dressings and paper tape due to adhesive allergy. All Hemovacs were activated. MARION Crews, was my first coat sander. He functioned as first coat sander throughout the entire procedure. He assisted in prepping, draping, arm positioning, soft tissue retraction, and assisted in the closure and dressings and postoperative care of the patient. I attest to the content of the Intraoperative Record and any orders documented therein. Any exception s are noted below.
[2019-03-26] MEDS ORDERED: Nursing to Pharmacy Communication ONE (23:44)
[2019-03-26] MEDS: CEFAZOLIN 2000MG 2,000 MG/15 ML SYR IV SCH (23:47)
[2019-03-27 07:02] LABS: INR 1.2 (0.9-1.1); Prothrombin Time 12.6 Seconds (9.0-12.0)
[2019-03-27 07:26] LABS: BUN Creatinine Ratio 17.2 (10-20); Calcium 8.1 mg/dl (8.5-10.1); Est GFR (Non-African American) 57.8; Potassium 3.7 mmol/L (3.5-5.1)
[2019-03-27] MEDS ORDERED: FERROUS GLUCONATE 324 MG TAB PO SCH (08:00)
[2019-03-27] MEDS: CEFAZOLIN 2000MG 2,000 MG/15 ML SYR IV SCH ×3 (08:03→23:38)
[2019-03-27] MEDS: DOCUSATE SODIUM 100 MG CAP PO SCH ×2 (08:08→21:09)
[2019-03-27] MEDS: FOLIC ACID 1 MG TAB PO SCH (08:09)
[2019-03-27] MEDS: PANTOprazole 40 MG TAB PO SCH ×2 (08:09→21:00)
[2019-03-27] MEDS: MULTIVITAMIN TAB PO SCH (08:09)
[2019-03-27] MEDS: METOPROLOL SUCC 25MG EXT REL TAB PO SCH ×2 (08:57→21:12)
[2019-03-27] MEDS: FUROSEMIDE 40 MG TAB PO SCH (08:58)
[2019-03-27] MEDS: FERROUS GLUCONATE 324 MG TAB PO SCH ×2 (08:58→18:28)
[2019-03-27] MEDS: INSULIN ASPART 100 UNITS/ML 3 ML PEN SC SCH ×4 (09:00→21:50)
--- NOTE | 2019-03-27 10:59 | Orthopedic Progress Note ---
Date of Service March 27, 2019 Assessment & Plan (1) Acute postoperative pain of left shoulder: Acute postoperative pain left shoulder secondary to hematoma collection. POD 1 s/p Evacuation Hematoma left shouder PT for gait training. Will have OT work with hand swelling as well as ADL's DVT proph - SCD's, MINDY's, Coumadin to restart as per Med service. Ok per Ortho to restart. Pain management Pt now talking about going to Rehab/SNF upon dc. Will dicsuss with Cm. Subjective POD 1 s/p Left shoulder hematoma/seroma evacuation. Pt sitting up in her chair at the bedside this AM. States that her shoulder feels much better since the surgery. Pain controlled currently. Denies SOB,CP,LH. Physical Exam Physical Exam: Dressings C/D/I. Swelling into hand. Moving all fingers. Having some numbness/tingling in the 4th/5th fingers. Wrist ROM wnl. Cap refill less than 2 seconds. HV drains present and functioning. Results & Data Vital Signs (Past 12 Hours) Vital Signs Temp Pulse Resp BP Pulse Ox 03/27/19 09:48 99 03/27/19 06:49 36.8 C 56 L 20 99/54 L 98 03/27/19 03:20 36.8 C 61 16 110/61 97 03/26/19 22:53 36.7 C 61 16 107/56 L 99
[2019-03-27] MEDS ORDERED: OXYCODONE HCL IR 5 MG TAB (IMMEDIATE RELEASE) PO PRN (11:00)
--- NOTE | 2019-03-27 16:58 | Hospitalist Progress Note ---
Date of Service March 27, 2019 Assessment & Plan (1) Acute postoperative pain of left shoulder: Acute postoperative shoulder pain. Patient s/p reverse total shoulder arthroplasty performed by Dr. Sosa on 03/20/19 - Patient with significant bruising at surgical site, firm area raises question of hematoma. Continues with no evidence of infection. XR with normal post- operative changes. -Plan for surgical evacuation hematoma 03/26 she has some ulnar type paresthesias with this may be from a prolonged flexion state or in the sling also could be from some swelling and compression at the surgical area this is markedly improved Acute blood loss anemia, status post 4 units of blood tolerated transfusion without fluid overload hemoglobin is been acceptable in the postoperative state CAD s/p [place] in 2013 - patient presently CP free, no EKG evidence of ischemia even in the side of her anemia If hemostasis is considered. She can resume her aspirin at the time of discharge Metoprolol 37.5mg po BID GARFIELD during hospital stay, Cr peaked at 1.7. Most likely secondary to ATN in setting of acute blood loss. -Renal dosing where appropriate -Avoid nephrotoxic agents Acute blood loss anemia - s/p 2U prbcs last hospitalization additional 2 units 03/24. +Bruising of shoulder, patient on Coumadin had given vitamin K Consider surgical washout 03/26 -Continue iron Type 2 diabetes mellitus: - Hemoglobin A1C was 6.2. - SSI coverage she is typically on any home medications. Atrial fibrillation: - S/p AV junction ablation and insertion of dual chamber/bi-ventricular pacemaker in May 2016. - Continue Metoprolol Coumadin -no need to bridge at time of discharge Coumadin restarted 03/27 by orthopedic service Chronic respiratory failure with hypoxia: - Chronically requires 2L via [place] at home in setting of sarcoidosis. HFpEF Or preserved ejection fraction heart failure - Most recent TTE in Oct 2017 showed EF 55%, reduced right systolic function. - Monitor net I/Os and daily weights. - Resume BB -Resume Lasix when able does not need Lasix and concern for intraoperative fluid loss watching her overall volume status Obstructive sleep apnea: - Wears CPAP qhs. Pulmonary HTN: - Severe pulm HTN noted on TTE in 2016. Requires 2L via NC chronically. Hypertension: -Continue Metoprolol Valvular heart disease: - Moderate mitral regurg and severe tricuspid regurg noted on TTE in Oct 2017. -No evidence of CHF Obesity: - BMI 35 - encourage weight loss and exercise. 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 Her hemoglobin is stable postoperatively and her INR is 1.2 today Review of Systems Review of Systems: ROS: well nourished well developed. No double vision blurry vision No problems with speech or swallowing No palpitations, she does have some chest wall discomfort at the surgical site No Wheezing or breathing issues No abdominal pain nausea vomiting diarrhea changes in appetite or weight No burning urine urine frequency or changes in color No focal joint pain or muscle pain No skin rashes or oral lesions Significant bruising across her left anterior chest wall and shoulder area No focused back pain as mentioned some complaints of numbness to her fourth and fifth digit on the left hand No changes in memory or confusion Physical Exam Physical Exam: The patient appeared well nourished and normally developed. Vital signs as documented. Head exam is unremarkable. normocephalic, atraumatic Neck is without jugular venous distension, thyromegaly, or lymphademopathy Lungs are clear to auscultation and percussion. Cardiac exam reveals Rhythm is regular. Abdominal exam reveals normal bowel sounds, no masses, no organomegaly Her upper extremities with marked bruising and some still some swelling but markedly reduced from preoperative state Neurologic exam is A&Ox3, some paresthesias to her left fourth and fifth finger which is also noted by orthopedics Psychologically seems neither anxious or depressed Skin is warm Dry significant bruises on her left anterior chest and shoulder Results & Data Vital Signs (Past 12 Hours) Vital Signs Temp Pulse Resp BP Pulse Ox 03/27/19 15:15 37.1 C 60 17 97/55 L 100 03/27/19 12:00 36.6 C 69 20 125/74 97 03/27/19 09:48 99 03/27/19 06:49 36.8 C 56 L 20 99/54 L 98
[2019-03-27] MEDS: LACTOBACILLUS ACIDOPHILUS (FLORANEX) TAB PO SCH (21:00)
[2019-03-27] MEDS: MONTELUKAST SODIUM 10 MG TABLET PO SCH (21:01)
[2019-03-27] MEDS: SENNA 8.6 MG TAB PO SCH (21:09)
[2019-03-28] MEDS ORDERED: COUGH DROP (SUGAR FREE) LOZ 24 LOZ/1 BOX BUCCAL ONE (03:04)
[2019-03-28 07:06] LABS: INR 1.2 (0.9-1.1)
[2019-03-28 07:27] LABS: BUN Creatinine Ratio 20.6 (10-20); Calcium 7.9 mg/dl (8.5-10.1); Creatinine Clr Calc Pharmacy 43.2 ml/min; Est GFR (African American) 56.1; Est GFR (Non-African American) 48.4; Potassium 3.7 mmol/L (3.5-5.1)
[2019-03-28] MEDS: PANTOprazole 40 MG TAB PO SCH ×2 (07:58→21:45)
[2019-03-28] MEDS: CEFAZOLIN 2000MG 2,000 MG/15 ML SYR IV SCH ×2 (07:58→16:23)
[2019-03-28] MEDS: DOCUSATE SODIUM 100 MG CAP PO SCH ×2 (07:58→21:36)
[2019-03-28] MEDS: MULTIVITAMIN TAB PO SCH (07:59)
[2019-03-28] MEDS: METOPROLOL SUCC 25MG EXT REL TAB PO SCH ×2 (08:00→21:45)
[2019-03-28] MEDS: FOLIC ACID 1 MG TAB PO SCH (08:02)
[2019-03-28] MEDS: FUROSEMIDE 40 MG TAB PO SCH (08:03)
[2019-03-28] MEDS: FERROUS GLUCONATE 324 MG TAB PO SCH ×2 (08:06→16:23)
--- NOTE | 2019-03-28 10:12 | Orthopedic Progress Note ---
Date of Service March 28, 2019 Assessment & Plan (1) Acute postoperative pain of left shoulder: Acute postoperative pain left shoulder secondary to hematoma collection. POD 2 s/p Evacuation Hematoma left shouder PT for gait training. Will have OT work with hand swelling as well as ADL's DVT proph - SCD's, MINDY's, Coumadin to restart as per Med service. Ok per Ortho to restart. Pain management Pt now talking about going to Rehab/SNF upon dc. [facility] auth placed per CM. Subjective POD 2 s/p I/D, Evac Hematoma Left Shoulder Pt sitting up in chair at bedside. States she did better at getting OOB today and feeling better overall. No new complaints. Pain controlled. She wants to talk to Med Service concerning her chronic cough. Denies sputum production at this time. States that her fingers are improving slightly as far as sensation returning. Physical Exam Physical Exam: Dressings removed. Both sets of drains taken out without dif ficutly. Incision are essentially without erythema. Distal area with some erythema more due to skin irritation and blister formation from prior hematoma. Skin is very fragile. Wound redressed with adaptic gauze and 4x3's. Continued swelling in fingers but a little better sensation in the 4th/5th fingers. Definitely better in the 3rd finger. ROM continues to improve with her fingers. Good cap refill. Good wrist ROM. Results & Data Vital Signs (Past 12 Hours) Vital Signs Temp Pulse Pulse Resp BP Pulse Ox 03/28/19 08:00 36.8 C 76 19 103/61 100 03/27/19 23:44 36.8 C 60 16 113/60 98
[2019-03-28] MEDS: INSULIN ASPART 100 UNITS/ML 3 ML PEN SC SCH ×4 (10:16→21:48)
--- NOTE | 2019-03-28 18:18 | Hospitalist Progress Note ---
Date of Service March 28, 2019 Assessment & Plan (1) Acute postoperative pain of left shoulder: Acute postoperative shoulder pain. Patient s/p reverse total shoulder arthroplasty performed by Dr. Sosa on 03/20/19 - Patient with significant bruising at surgical site, firm area raises question of hematoma. Continues with no evidence of infection. XR with normal post- operative changes. -Plan for surgical evacuation hematoma 03/26 she has some ulnar type paresthesias over the physical therapy will improve this patient will see hand therapy as well at rehab Acute blood loss anemia, status post 4 units of blood tolerated transfusion without fluid overload hemoglobin is been acceptable in the postoperative state CAD s/p [place] in 2013 - patient presently CP free, no EKG evidence of ischemia even in the side of her anemia If hemostasis is considered. She can resume her aspirin at the time of discharge Metoprolol 37.5mg po BID [place] during hospital stay, Cr peaked at 1.7. Most likely secondary to ATN in setting of acute blood loss. Resolved will give 1 dose of Lasix to try to help with peripheral edema Acute blood loss anemia - s/p 2U prbcs last hospitalization additional 2 units 03/24. +Bruising of shoulder, patient on Coumadin had given vitamin K Consider surgical washout 03/26 -Continue iron Type 2 diabetes mellitus: - Hemoglobin A1C was 6.2. - SSI coverage she is typically on any home medications. Atrial fibrillation: - S/p AV junction ablation and insertion of dual chamber/bi-ventricular pacemaker in May 2016. - Continue Metoprolol Coumadin -no need to bridge at time of discharge Coumadin restarted 03/27 by orthopedic service Chronic respiratory failure with hypoxia: - Chronically requires 2L via NC at home in setting of sarcoidosis. HFpEF Or preserved ejection fraction heart failure - Most recent TTE in Oct 2017 showed EF 55%, reduced right systolic function. - Monitor net I/Os and daily weights. - Resume BB -Resume Lasix when able Obstructive sleep apnea: - Wears CPAP qhs. Pulmonary HTN: - Severe pulm HTN noted on TTE in 2016. Requires 2L via NC chronically. Hypertension: -Continue Metoprolol Valvular heart disease: - Moderate mitral regurg and severe tricuspid regurg noted on TTE in Oct 2017. -No evidence of CHF Obesity: - BMI 35 - encourage weight loss and exercise. DVT prophylaxis: -Coumadin is held at this time may consider sequential compression devices postoperatively Code - Full Dispo rehab Subjective Patient feels much better still with some swelling to her left arm and legs no shortness of breath no chest pain still with some peripheral numbness to her fourth and fifth fingers of her left hand Review of Systems Review of Systems: ROS: well nourished well developed. No double vision blurry vision No problems with speech or swallowing No palpitations, chest pain or pressure No Wheezing or breathing issues No abdominal pain nausea vomiting diarrhea changes in appetite or weight No burning urine urine frequency or changes in color Typical postoperative pain of her left shoulder No skin rashes or oral lesions No unusual bruising or bleeding No focused back pain numbness to her distal hand and some minor decrease in strength No changes in memory or confusion Physical Exam Physical Exam: The patient appeared well nourished and normally developed. Vital signs as documented. Head exam is unremarkable. normocephalic, atraumatic Neck is without jugular venous distension, thyromegaly, or lymphademopathy Lungs are clear to auscultation and percussion. Cardiac exam reveals Rhythm is regular. First and second heart sounds normal. Abdominal exam reveals normal bowel sounds, no masses, no organomegaly Extremities are mildly edematous she has good movement of her hand with good capillary refill but some subjective paresthesias Neurologic exam is A&Ox3, no focal deficits, strength is equal bilateral Psychologically seems neither anxious or depressed Skin is warm/ Dry with persistent significant bruising about her left shoulder Results & Data Vital Signs (Past 12 Hours) Vital Signs Temp Pulse Pulse Resp BP Pulse Ox 03/28/19 16:10 37.2 C 58 L 18 115/68 100 03/28/19 12:27 98 03/28/19 11:43 36.9 C 66 20 112/66 98 03/28/19 08:00 36.8 C 76 19 103/61 100
[2019-03-28] MEDS ORDERED: MECLIZINE HCL 25 MG TAB PO STA (21:36)
[2019-03-28] MEDS: SENNA 8.6 MG TAB PO SCH (21:36)
[2019-03-28] MEDS: LACTOBACILLUS ACIDOPHILUS (FLORANEX) TAB PO SCH (21:44)
[2019-03-28] MEDS: MONTELUKAST SODIUM 10 MG TABLET PO SCH (21:45)
[2019-03-29] MEDS: DOCUSATE SODIUM 100 MG CAP PO SCH ×3 (07:29→20:21)
[2019-03-29] MEDS: METOPROLOL SUCC 25MG EXT REL TAB PO SCH ×2 (07:29→20:29)
[2019-03-29] MEDS: FOLIC ACID 1 MG TAB PO SCH (07:29)
[2019-03-29] MEDS: PANTOprazole 40 MG TAB PO SCH ×2 (07:31→20:30)
[2019-03-29] MEDS: FUROSEMIDE 40 MG TAB PO SCH (07:31)
[2019-03-29] MEDS: FERROUS GLUCONATE 324 MG TAB PO SCH ×2 (07:31→18:29)
[2019-03-29] MEDS: MULTIVITAMIN TAB PO SCH (07:31)
[2019-03-29 08:06] LABS: INR 1.2 (0.9-1.1); Prothrombin Time 11.8 Seconds (9.0-12.0)
[2019-03-29] MEDS ORDERED: MECLIZINE HCL 25 MG TAB PO STA (08:36)
[2019-03-29] MEDS: INSULIN ASPART 100 UNITS/ML 3 ML PEN SC SCH ×4 (08:44→21:56)
--- NOTE | 2019-03-29 11:49 | Orthopedic Progress Note ---
Date of Service March 29, 2019 Assessment & Plan (1) Acute postoperative pain of left shoulder: Acute postoperative pain left shoulder secondary to hematoma collection. POD 3 s/p Evacuation Hematoma left shouder PT for gait training. Continue OT work with hand swelling as well as ADL's DVT proph - SCD's, MINDY's, Coumadin to restart as per Med service. Ok per Ortho to restart. Pain management Pt now talking about going to Rehab/SNF upon dc. [facility] auth placed per CM. Will discuss dc prospects with Med Service today. Subjective Pt lying in bed upon arrival. States she's more tired today and that she feels she overdid her activities yesterday. Had some vertigo last pm and given Meclizine. Somewhat better today but having some blurry vision today of which she discussed with Med Service this AM. No other complaints. Pain controlled. Fingers about the same with numbness/weakness in the 4th, 5th fingers. Physical Exam Physical Exam: Incision appears benign proximally. Still has the blistering distally near the axilla. No overt drainage noted. Fingers 4/5 with weakness/numbness as noted above. Cap refill wnl. Results & Data Vital Signs (Past 12 Hours) Vital Signs Temp Pulse Pulse Resp BP Pulse Ox 03/29/19 08:16 36.8 C 86 18 114/78 93 03/29/19 07:37 60 18 107/58 L 100 03/28/19 23:53 36.7 C 58 L 18 125/54 L 99
--- NOTE | 2019-03-29 14:45 | Hospitalist Progress Note ---
Date of Service March 29, 2019 Assessment & Plan (1) Acute postoperative pain of left shoulder: Acute postoperative shoulder pain. Patient s/p reverse total shoulder arthroplasty performed by Dr. Sosa on 03/20/19 - surgical evacuation hematoma 03/26 she has some ulnar type paresthesias physical therapy, hand therapy as well at rehab Acute blood loss anemia, status post 4 units of blood tolerated transfusion without fluid overload hemoglobin is been acceptable in the postoperative state CAD s/p [place] in 2013 - patient presently CP free, no EKG evidence of ischemia even in the side of her anemia She can resume her aspirin at the time of discharge Metoprolol 37.5mg po BID GARFIELD during hospital stay, Cr peaked at 1.7. Most likely secondary to ATN in setting of acute blood loss. Resolved will give 1 dose of Lasix to try to help with peripheral edema Acute blood loss anemia - s/p 2U prbcs last hospitalization additional 2 units 03/24. +Bruising of shoulder, patient on Coumadin had been given vitamin K -Continue iron Type 2 diabetes mellitus: - Hemoglobin A1C was 6.2. - SSI coverage she is typically not on any home medications. Atrial fibrillation: - S/p AV junction ablation and insertion of dual chamber/bi-ventricular pacemaker in May 2016. - Continue Metoprolol Coumadin -no need to bridge at time of discharge Coumadin restarted by orthopedic service Chronic respiratory failure with hypoxia: - Chronically requires 2L via NC at home in setting of sarcoidosis. HFpEF Or preserved ejection fraction heart failure - Most recent TTE in Oct 2017 showed EF 55%, reduced right systolic function. - - Resume BB and Lasix Obstructive sleep apnea: - Wears CPAP qhs. Pulmonary HTN: - Severe pulm HTN noted on TTE in 2016. Requires 2L via NC chronically. Hypertension: Metoprolol Valvular heart disease: - Moderate mitral regurg and severe tricuspid regurg noted on TTE in Oct 2017. -No evidence of CHF Obesity: - BMI 35 - encourage weight loss and exercise. DVT prophylaxis: -Coumadin Code - Full Dispo rehab Subjective pt has been bothered by some vertiginous symptoms she has improving neurologic symptoms and pain at the surgical site. Her vertiginous symptoms are worsened by movement but on my exam were not associated with nystagmus Review of Systems Review of Systems: ROS: pt is petite and appears chronically ill No double vision blurry vision No problems with speech or swallowing No palpitations, chest pain or pressure No Wheezing or breathing issues No abdominal pain nausea vomiting diarrhea No burning urine urine frequency or changes in color persistent but improving left shoulder pain No skin rashes or oral lesions No unusual bruising or bleeding No focused back pain or numbness or loss of strength c/o feeling the room spin or dizziness with head movement notes did strike head when originally falling No changes in memory or confusion Physical Exam Physical Exam: The patient appeared chronically ill Vital signs as documented. Head exam is unremarkable. normocephalic, atraumatic, no nsytagmus, PERRL eomi, no facial droop Neck is without jugular venous distension, thyromegaly, or lymphademopathy, no carotid bruits Lungs are clear to auscultation and percussion. Cardiac exam reveals Rhythm is regular.miles Abdominal exam reveals normal bowel sounds, no masses, no organomegaly Extremities she has some trace edema to all extremitis, most likely from prolongued hospital stay, nutritional issues Neurologic exam is A&Ox3, continues with some numbness to 4 and 5 fingers Psychologically seems neither anxious or depressed Skin is warm / Dry Results & Data Vital Signs (Past 12 Hours) Vital Signs Temp Pulse Pulse Resp BP Pulse Ox 03/29/19 13:21 37.2 C 82 18 104/54 L 99 03/29/19 08:16 36.8 C 86 18 114/78 93 03/29/19 07:37 60 18 107/58 L 100
[2019-03-29] MEDS ORDERED: SCOPOLAMINE 1.5 MG TDSY TD SCH (15:00)
[2019-03-29] MEDS ORDERED: WARFARIN SOD 4 MG TAB PO SCH (16:00)
[2019-03-29] MEDS: CHECK SCOPOLAMINE PATCH PLACEMENT SCH (16:49)
[2019-03-29] MEDS: SENNA 8.6 MG TAB PO SCH (20:21)
[2019-03-29] MEDS: LACTOBACILLUS ACIDOPHILUS (FLORANEX) TAB PO SCH (20:29)
[2019-03-29] MEDS: MONTELUKAST SODIUM 10 MG TABLET PO SCH (20:29)
[2019-03-30] MEDS: CHECK SCOPOLAMINE PATCH PLACEMENT SCH ×2 (00:04→09:33)
[2019-03-30 06:27] LABS: INR 1.2 (0.9-1.1); Prothrombin Time 12.1 Seconds (9.0-12.0)
--- NOTE | 2019-03-30 08:16 | Orthopedic Progress Note ---
Date of Service March 30, 2019 Assessment & Plan (1) Acute postoperative pain of left shoulder: Acute postoperative pain left shoulder secondary to hematoma collection. POD 4 s/p Evacuation Hematoma left shouder PT for gait training. Continue OT work with hand swelling as well as ADL's DVT proph - SCD's, MINDY's, Coumadin to restart as per Med service. Ok per Ortho to restart. Pain management Plan for [facility] today. Subjective Pt sitting in chair this AM. Feeling well. No new complaints. Pain controlled. Vertigo is much better today. Physical Exam Physical Exam: Most of incision remains benign. Skin blister area noted at the crease of the axilla with scab. No overt drainage. Mild erythema distally. States that her fingers 4,5 are more numb today which she feels is more positional. Other remaining fingers wnl. ROM about the same. Weakness in 4/5 about the same. Results & Data Vital Signs (Past 12 Hours) Vital Signs Temp Pulse Pulse Resp BP Pulse Ox 03/30/19 07:52 36.7 C 64 16 115/63 110 H 03/29/19 22:57 36.9 C 74 18 100/61 98 03/29/19 20:25 36.9 C 62 18 99/61 L 100
[2019-03-30] MEDS: PANTOprazole 40 MG TAB PO SCH (09:27)
[2019-03-30] MEDS: DOCUSATE SODIUM 100 MG CAP PO SCH (09:27)
[2019-03-30] MEDS: MULTIVITAMIN TAB PO SCH (09:28)
[2019-03-30] MEDS: METOPROLOL SUCC 25MG EXT REL TAB PO SCH (09:28)
[2019-03-30] MEDS: FOLIC ACID 1 MG TAB PO SCH (09:33)
[2019-03-30] MEDS: FUROSEMIDE 40 MG TAB PO SCH (09:33)
[2019-03-30] MEDS: FERROUS GLUCONATE 324 MG TAB PO SCH (09:33)
[2019-03-30] MEDS: INSULIN ASPART 100 UNITS/ML 3 ML PEN SC SCH ×2 (09:37→14:17)
--- NOTE | 2019-03-30 15:48 | Hospitalist Progress Note ---
Date of Service March 30, 2019 Assessment & Plan (1) Acute postoperative pain of left shoulder: Acute postoperative shoulder pain. Patient s/p reverse total shoulder arthroplasty performed by Dr. Sosa on 03/20/19 - surgical evacuation hematoma 03/26 she has some ulnar type paresthesias physical therapy, hand therapy as well at rehab Acute blood loss anemia, status post 4 units of blood tolerated transfusion without fluid overload hemoglobin is been acceptable in the postoperative state CAD s/p [place] in 2013 - patient presently CP free, no EKG evidence of ischemia even in the side of her anemia She can resume her aspirin at the time of discharge Metoprolol 37.5mg po BID GARFIELD during hospital stay, Cr peaked at 1.7. Most likely secondary to ATN in setting of acute blood loss. Resolved will give 1 dose of Lasix to try to help with peripheral edema Acute blood loss anemia - s/p 2U prbcs last hospitalization additional 2 units 03/24. +Bruising of shoulder, patient on Coumadin had been given vitamin K -Continue iron Type 2 diabetes mellitus: - Hemoglobin A1C was 6.2. - SSI coverage she is typically not on any home medications. Atrial fibrillation: - S/p AV junction ablation and insertion of dual chamber/bi-ventricular pacemaker in May 2016. - Continue Metoprolol Coumadin -no need to bridge at time of discharge Coumadin restarted by orthopedic service Chronic respiratory failure with hypoxia: - Chronically requires 2L via [place] at home in setting of sarcoidosis. HFpEF Or preserved ejection fraction heart failure - Most recent TTE in Oct 2017 showed EF 55%, reduced right systolic function. - - Resume BB and Lasix Obstructive sleep apnea: - Wears CPAP qhs. Pulmonary HTN: - Severe pulm HTN noted on TTE in 2016. Requires 2L via [place] chronically. Hypertension: Metoprolol Valvular heart disease: - Moderate mitral regurg and severe tricuspid regurg noted on TTE in Oct 2017. -No evidence of CHF Obesity: - BMI 35 - encourage weight loss and exercise. 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, will try lidoderm patch DVT prophylaxis: -Coumadin Code - Full Dispo rehab Subjective pt feels better, she still has some hand swelling and numbness, vertigo is improved with scopolamine, she requests lidoderm patch for neck pain Review of Systems Constitutional: + fatigue and + weakness Respiratory: no cough, no chest congestion and no dyspnea Cardiovascular: no chest pain and no dyspnea on exertion Gastrointestinal: no abdominal pain, no nausea and no vomiting Integumentary: no rash and no lesions Physical Exam Constitutional: well developed and average body habitus Eyes: no conjunctival abnormality and no scleral abnormality Neck: normal visual inspection and trachea midline Respiratory: normal respiratory effort; no respiratory distress Auscultation: lungs clear to auscultation bilaterally Cardiovascular: RRR, no murmur, no edema Gastrointestinal (Abdomen): normal bowel sounds, soft, nontender, no hepatosplenomegaly Results & Data Vital Signs (Past 12 Hours) Vital Signs Temp Pulse Pulse Pulse Resp BP Pulse Ox 03/30/19 12:23 36.7 C 62 74 64 16 115/63 110 H 03/30/19 11:58 36.7 C 62 74 64 16 115/63 110 H 03/30/19 07:52 36.7 C 64 16 115/63 110 H
--- NOTE | 2019-04-02 02:18 | Discharge Summary ---
DISCHARGE DIAGNOSIS: Postoperative hematoma, left shoulder status post left reverse total shoulder arthroplasty. SECONDARY DIAGNOSES: Coronary artery disease status post myocardial infarction in 2014, congestive heart failure, history of heart murmur, hypertension, irregular heartbeat, sleep apnea with use of CPAP and oxygen, diabetes mellitus, sarcoidosis, anemia, osteoarthritis, degenerative arthritis of the spine, history of sciatica, gastroesophageal reflux disease, obesity. CONSULTS: Dr. Bah. COMPLICATIONS: None. PROCEDURES: Incision and drainage left shoulder, evacuation of hematoma, irrigation and debridement including debridement of muscle and subcutaneous soft tissue and closure of drains by Dr. Sosa on 03/26/2019. BRIEF HISTORY: As dictated in the history and physical. HOSPITAL SUMMARY: The patient was admitted on the above-noted date with the above-noted large hematoma in her left shoulder area. The patient had been anticoagulated and needed to have the INR brought down to reasonable levels for open irrigation and debridement, her INR was 3 and plans were to drop the INR down to 1.5 or less for surgery. She continued to remain medically stable over the next several days. INR continued to remain somewhat high at 1.8 and patient's surgery was continued to be held until the INR was lowered by 03/26/2019. Her INR had come down to 1.3 and she was otherwise remaining stable. She was then taken to the operating room by Dr. Sosa on 03/26/2019 and the above-noted procedure was performed, which she tolerated well. On her first postoperative day, she was sitting up in a chair at the bedside that morning. She stated that her shoulder felt much better after the surgery. Pain was controlled and she denied shortness of breath, chest pain or lightheadedness. Dressings clean, dry and intact. Swelling was noted into the hand. She was moving all her fingers, but having some numbness and tingling in the 4th and 5th fingers. Wrist range of motion was within normal limits. Cap refill was less than 2 seconds. Hemovac drains were present and functioning. Vital signs were stable. She was afebrile and she was started on physical therapy for gait training and plans for OT for ADLs and reducing swelling in the hand. She was continued on DVT prophylaxis with SCDs and MINDY hose, Coumadin was restarted and she was continued on pain management. Plans were for her to possibly go to a rehab facility post-discharge. By her second postoperative day, she was sitting up in chair at bedside and she stated that she did better getting out of bed that day and was feeling better overall. No new complaints. Pain was controlled. She had had a dry cough that had been going on for some time that she was talking to the medicine service about. She denied sputum production at that time, stated that her fingers are improving slightly as far as sensation. Her dressings were removed. Both sets of drains were taken out without difficulty. Incision was essentially without erythema. Distal area of the incision did have some erythema, more due to skin irritation and blister formation from prior hematoma. Skin was very fragile. Wound was redressed with Adaptic gauze and 4 x 3s and it was noted she had continued swelling in the fingers, but just slightly bit better sensation in the 4th and 5th fingers, definitely better in the third finger. Range of motion continues to improve and she had good capillary refill and good wrist range of motion. She was continued on PT protocol, continued on DVT prophylaxis and pain management. The rest of her stay was essentially uneventful. She continued to progress over the next several days and remained medically stable. She had developed some vertigo which was addressed per medicine service and by 03/30/2019, she was sitting on her chair, feeling well without complaints. Pain was controlled, vertigo was much better. Incision remained benign with skin blister area noted at the crease of the axilla with scabbing, no overt drainage. Mild erythema distally and she has remained medically stable and orthopedically stable and so she will be transferred to [facility] facility for further assessment and care. For further review, please see chart. LABORATORY AND X-RAY DATA: As per chart. DISCHARGE INSTRUCTIONS: The patient was transferred to [facility] on 03/30/2019. DIET: Diabetic. ACTIVITY: Follow reverse total shoulder arthroplasty instructions as per Dr. Sosa's instructions and follow up with Dr. Sosa in 12-14 days. DISCHARGE MEDICATIONS: Cephalexin 500 mg p.o. q.i.d. for 5 days, Colace 100 mg p.o. b.i.d., ferrous gluconate 324 mg p.o. b.i.d., lidocaine 1 patch topically daily, multivitamin 1 tab p.o. q.a.m., nystatin 1 application externally b.i.d., oxycodone 5-10 mg p.o. q. 4 hours p.r.n., scopolamine 1.5 mg transdermal every 72 hours., sennosides 17.2 mg p.o. at bedtime. Resume home meds as listed. Stop taking enoxaparin, [place], Percocet and tramadol.
--- NOTE | 2019-04-03 06:53 | Coding Query ---
CODING QUERY To promote full compliance with coding requirements relating to patient care, provider participation is requested in all cases of surgical coder uncertainty. Please assist us with the question(s) below: Coding Question(s): There is documentation of, "GARFIELD during hospital stay, CR peaked at 1.7. Most likely secondary to ATN in setting of acute blood loss.". Please clarify below, regarding Acute Kidney Injury, most likely secondary to ATN. ( X ) Acute Kidney Injury, most likely secondary to ATN was treated during this admission ( ) Acute Kidney Injury, most likely secondary to ATN was Not treated during this admission - it was treated on a previous admission GARFIELD treated with IVF and improved. Physician's Response(s): Thank you Kimi Pond Principal Diagnosis: "that condition established after study, to be chiefly responsible for occasioning the admission of the patient to the hospital for care." Co-Existing Principal Diagnosis: "when two or more diagnoses equally meet the criteria for principal diagnosis as determined by the circumstances of admission, diagnostic work up, and/or therapy provided, and the Alphabetic Index, Tabular List, or another coding guideline does not provide sequencing direction, any one of the diagnoses may be sequenced first." "When the physician has documented what appears to be a current diagnosis in the body of the record, but has not included the diagnosis in the final diagnostic statement, the physician should be asked whether the diagnosis should be added." ([facility] 2 QTR90. p3-4) HAI
--- NOTE | 2019-04-03 06:58 | Coding Query ---
CODING QUERY To promote full compliance with coding requirements relating to patient care, provider participation is requested in all cases of invoice coder uncertainty. Please assist us with the question(s) below: Coding Question(s): There is documentation of Postoperative Hematoma of the Left Shoulder on Discharge Summary and the Operative Report documents Hematoma, left shoulder, secondary to anticoagulants, status post reverse total shoulder replacement, left shoulder. Please clarify below, in your clinical opinion. ( x ) Postoperative Hematoma is a postoperative complication and also secondary to anticoagulants ( ) Postoperative Hematoma is Not a postoperative complication. It is due only the anticoagulants Physician's Response(s): Thank you Kimi Pond Principal Diagnosis: "that condition established after study, to be chiefly responsible for occasioning the admission of the patient to the hospital for care." Co-Existing Principal Diagnosis: "when two or more diagnoses equally meet the criteria for principal diagnosis as determined by the circumstances of admission, diagnostic work up, and/or therapy provided, and the Alphabetic Index, Tabular List, or another coding guideline does not provide sequencing direction, any one of the diagnoses may be sequenced first." "When the physician has documented what appears to be a current diagnosis in the body of the record, but has not included the diagnosis in the final diagnostic statement, the physician should be asked whether the diagnosis should be added." ([facility] 2 QTR90. p3-4) HAI
== END 2019-03-30 16:16 | DRG 907 ==
LOC: 3N 21:13 → ED 21:13 → 3N 03-24 00:55

== ENCOUNTER 2019-04-08 14:18 | Inpatient (IN) ==
[2019-04-08] MEDS ORDERED: ONDANSETRON INJ 2 MG/ML 2 ML VIAL IV PRN (15:03)
[2019-04-08] MEDS ORDERED: CONSULT PHARMACY STA (15:03)
[2019-04-08] MEDS ORDERED: ZOLPIDEM TARTRATE 5 MG TAB PO PRN (15:03)
[2019-04-08] MEDS ORDERED: HYDROmorphone INJ 0.5 MG/0.5 ML SYR IV PRN (15:08)
[2019-04-08] MEDS ORDERED: TRAMADOL HCL 50 MG TABLET PO PRN (15:08)
[2019-04-08] MEDS ORDERED: VANCOMYCIN CONSULT ACTIVE PRN (15:13)
[2019-04-08] MEDS ORDERED: PATIENT'S HEIGHT AND/OR WEIGHT NEEDED SCH ×2 (15:45→17:00)
[2019-04-08] MEDS ORDERED: NYSTATIN POWDER 15GM BTL EXT PRN (16:13)
[2019-04-08] MEDS ORDERED: FLUTICASONE PROPIONATE NA SPR 16 GM BTL PRN (16:13)
[2019-04-08] MEDS ORDERED: NITROGLYCERIN SL 0.4 MG/TAB TAB SL PRN (16:13)
[2019-04-08] MEDS ORDERED: NON-FORMULARY MEDICATION (Ferrous Sulfate 325 MG) PO SCH (16:15)
[2019-04-08] MEDS ORDERED: SCOPOLAMINE 1.5 MG TDSY TD SCH (16:15)
--- NOTE | 2019-04-08 16:41 | Anesthesiology Consultation ---
Date of Service April 08, 2019 Assessment & Plan Chart Review Chart Review: Acceptable Risk for Surgery and Patient NOT seen in Pre Admission Testing Consults Requested none ASA ASA4 Proposed Anesthesia Anesthesia Type: General Regional History Surgery Operation Date: 04/09/19 07:50 Proposed Procedures p Left Shoulder Incision and Drainage, - Heath Sosa MD s Revision Reverse Total Shoulder Arthroplasty - Poly and Humeral Head with Placement of Antibiotic Beads - Heath Sosa MD Allergies Allergy/AdvReac Type Severity Reaction Status Date / Time adhesive Allergy Mild RASH & Verified 03/23/19 22:32 BLISTERS NSAIDS (Non-Steroidal AdvReac Intermediate ADVISED TO Verified 03/23/19 22:32 Anti-Inflamma AVOID DUE TO KIDNEY DISEASE morphine AdvReac Mild "SENSITIVITY"- Verified 03/23/19 22:32 "go crazy" Medications Home Medications Medication Instructions Recorded Confirmed Last Taken Lactobacillus acidophilus capsule 2 cap PO HS cap 07/11/18 03/23/19 03/18/19 20:00 aspirin 81 mg tablet,delayed 81 mg PO MONWEDFRI tab 07/11/18 03/23/19 03/21/19 release folic acid 1 mg tablet 1 mg PO QAM 07/11/18 03/23/19 03/18/19 08:00 montelukast 10 mg tablet 10 mg PO QPM 07/11/18 03/23/19 03/18/19 20:00 nitroglycerin 0.4 mg sublingual 0.4 mg SL Q5M PRN 07/11/18 03/23/19 Unknown tablet ranitidine 150 mg capsule 150 mg PO QPM 07/11/18 03/23/19 03/23/19 16:30 warfarin 2 mg tablet 2 mg PO 4XWK tab 07/11/18 03/23/19 03/23/19 16:30 warfarin 4 mg tablet 4 mg PO 3XWK tab 07/11/18 03/23/19 03/12/19 21:00 fluticasone propionate [Flonase 1 spray INTRANASAL ONCE PRN 08/16/18 03/23/19 03/17/19 20:00 Allergy Relief] furosemide 40 mg PO QAM #1 tab 03/23/19 03/23/19 03/18/19 07:00 metoprolol succinate 37.5 mg PO BID #1 tab 05/10/3003/23/19 03/19/19 06:00 docusate sodium 100 mg PO BID 10 Days #20 cap 03/30/19 Unknown ferrous gluconate 324 mg PO BIDM 10 Days #20 tab 03/30/19 Unknown lidocaine [Lidoderm] 1 patch TOP DAILY #15 ea 03/30/19 Unknown multivitamin [Daily-Dhiraj] 1 tab PO QAM 10 Days #10 tab 03/30/19 Unknown nystatin [Nystop] 1 applic EXT BID PRN 10 Days #15 gm 03/30/19 Unknown oxycodone 5 - 10 mg PO Q4H PRN #24 tab 03/30/19 Unknown scopolamine base [Transderm-Scop] 1.5 mg TRANSDERMAL Q72H 10 Days #3 03/30/19 Unknown ea sennosides [Senokot] 17.2 mg PO HS 10 Days #20 tab 03/30/19 Unknown aspirin 81 mg tablet PO .TAKE 1 TABLET M/W/F tab 04/02/19 04/02/19 Unknown cyanocobalamin (vit B-12) 500 mcg PO tab 04/02/19 04/02/19 Unknown tablet doxycycline hyclate 100 mg tablet PO .TAKE 1 TABLET TWICE #14 tab 04/02/19 04/02/19 Unknown ferrous sulfate 325 mg (65 mg PO .TAKE 1 TABLET DAILY #30 tab 04/02/19 04/02/19 Unknown iron) tablet hydrocodone 5 mg-acetaminophen 325 PO .1/2 to 1 tablet ever #30 tab 04/02/19 04/02/19 Unknown mg tablet ranitidine 150 mg tablet PO .Take 1 tablet daily #180 tab 04/02/19 04/02/19 Unknown Past Medical History Medical History Pulmonary congestion (Acute) Paroxysmal atrial fibrillation (Acute) Pacemaker (Acute) Obstructive sleep apnea of adult (Acute) GERD without esophagitis (Acute) Diabetes mellitus with kidney disease (Acute) Anticoagulant long-term use (Acute) Atrial fibrillation Paroxysmal, then persistent with difficult to control rhythm and rate, ultimately requiring AV junction ablation and insertion of dual-chamber BiV pacer 05/2016 CAD (coronary artery disease) s/p ME and cath 2012, not amenable to PCI CHF (congestive heart failure) Right sided 2/2 elevated pulmonary pressures/sarcoidosis CKD (chronic kidney disease) stage 3, GFR 30-59 ml/min Cough Currently with exacerbation of underlying pulm issues. On Doxy with recent Prednisone course. Pre-op CXR 03/07 showed no acute disease. Seen by PCP 03/14 for f/u-- "cough appears much improved." GERD (gastroesophageal reflux disease) H/O acute myocardial infarction 2012 HTN (hypertension) History of diabetes mellitus, type II Diet controlled Hypercalcemia Hyperlipidemia HISTORY Hyponatremia Obesity Obstructive sleep apnea on CPAP On home oxygen therapy 2/2 SARCOIDOSIS. O2 AT 2L PRN Pulmonary hypertension Sarcoidosis pulmonary and ocular involvement Spinal stenosis Exercise / Class Metabolic Activity III < 4 Walking/Shop/Light housework Past Family History Family History Grandfather No problems noted. Grandmother No problems noted. 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 RIDLEY CHECKS DEVICE APT 03/10/19 S/P rotator cuff repair 2012, complicated by post-op embolic ME, thrombus observed Status post reverse arthroplasty of left shoulder 03/20/1919 Grade 1 view Mac 3 blade Total knee replacement status R knee (TOTAL OF 8 SURGERIES) Past Anesthesia History No Hx of Anesthesia Complications and No Family Hx of Anesthesia Complications History of PONV No Hx of PONV and No Hx of Motion Sickness Social History Smoking Status: Never smoker Hx Alcohol Use: Yes Alcohol type: hard liquor alcohol intake frequency: a few times a week Hx Substance Use: No substance use type: does not use Physical Exam Vital Signs Last Vital Signs Temp 37.5 C 04/08/19 16:25 Pulse 78 04/08/19 16:25 Resp 18 04/08/19 16:25 BP 148/86 H 04/08/19 16:25 Pulse Ox 94 04/08/19 16:25 Testing Electrocardiogram Date: 03/06/19 03/06/2019(EKG)- V-paced rhythm Chest X-Ray Date: 03/07/19 Findings: + NAD chronic and postop changes Echocardiogram Date: 11/07/17 EF: 55 Valvular Disease: + MR (moderate) RV-moderately dilated;+ RV systolic dysfunction; LA-severely dilated;RA-moderately dilated TR-moderate -severe Severe pulmonary HTN PA systolic pressure 65 Torr Cardiac Catheterization Date: 08/31/13 Findings: + LCX (OM1 20%) and + pertinent finding (LAD-prox.30%; Mid 100%; D2 t otal occlusion); no RCA and no LMA Intervention: + PCI (to LAD) Location: s/p acute anterior wall ME
[2019-04-08] MEDS ORDERED: VANCOMYCIN HCL 2,250 MG in SODIUM CHLORIDE 0.9% 500 ML IV ONE (17:00)
[2019-04-08 17:12] LABS: Basophils # (auto) 0.02 K/uL (0-0.2); Basophils % (auto) 0.2 %; Eosinophils # (auto) 0.17 K/uL (0-0.5); Eosinophils % (auto) 1.8 %; Hematocrit (blood only) 34.5 % (37-47); Immature Granulocytes # (auto) 0.02 K/uL (0.00-0.02); Immature Granulocytes % (auto) 0.2 %; Lymphocytes # (auto) 0.97 K/uL (1.2-3.4); Lymphocytes % (auto) 10.2 %; Mean Corpuscular Hgb Conc 31.9 g/dL (32-36); Mean Platelet Volume 10.2 fL (7.4-10.4); Monocytes # (auto) 1.76 K/uL (0.11-0.59); Monocytes % (auto) 18.5 %; Neutrophils # (auto) 6.58 K/uL (1.4-6.5); Neutrophils % (auto) 69.1 %; Platelet Count 412 K/uL (130-400); RDW Standard Deviation 68.5 fL (36.4-46.3); Red Blood Count 3.45 M/uL (4.2-5.4); White Blood Count 9.52 K/uL (4.8-10.8)
[2019-04-08 17:22] LABS: INR 3.5 (0.9-1.1); Prothrombin Time 32.8 Seconds (9.0-12.0)
[2019-04-08 17:34] LABS: BUN Creatinine Ratio 18.5 (10-20); Blood Urea Nitrogen 21 mg/dl (7-18); Calcium 8.8 mg/dl (8.5-10.1); Carbon Dioxide 31 mmol/L (21-32); Chloride 94 mmol/L (98-107); Est GFR (African American) 53.7; Est GFR (Non-African American) 46.3; Glucose 128 mg/dl (70-99); Potassium 4.2 mmol/L (3.5-5.1); Sodium 130 mmol/L (136-145)
[2019-04-08] MEDS: FERROUS GLUCONATE 324 MG TAB PO SCH (19:02)
[2019-04-08] MEDS: SODIUM CHLORIDE 0.9% 1000ML 1,000 ML IV SCH (20:03)
--- NOTE | 2019-04-08 20:56 | Pharmacy Report ---
Pharmacy Abx Initial Consult - Date of Service April 08, 2019 - Pharmacy Dosing Scope Date of Consult: 04/08/19 Consultation requested by: Lion Hoyos PA-C Pharmacy is consulted to initiate Vancomycin IV dosing therapy, order appropriate labs and adjust drug dose/frequency. - Subjective The patient is a 78 year old F admitted on 04/08/19 16:06. - Objective Height: 5 ft 1 in Weight: 90.8 kg Vital Signs (Past 12hrs): Vital Signs Temp Pulse Resp BP Pulse Ox 04/08/19 17:40 37.5 C 78 18 148/86 H 94 04/08/19 16:25 37.5 C 78 18 148/86 H 94 Lab Results (24hrs): Laboratory Tests (24 Hours) 04/08/19 04/08/19 16:55 16:55 WBC 9.52 Neut # (Auto) 6.58 H Creatinine 1.14 Est Cr Clr Drug Dosing Not Reportable Micro Results: 04/08/19 14:30 Gram Stain - Pending Shoulder,Left Wound Culture - Pending - Risk Factors for Resistance * Resident in a fdc or extended-care facility - has been residing at [facility] since 03/30 for post-op rehab. * Hospitalization for 48 hours or more within the past 90 days - admitted from 03/19 to 03/30 * Antimicrobial use within the last 90 days - Keflex 500mg QID. - Assessment & Plan Assessment 78 year old F admitted from [facility] for worsening pain to left shoulder following reverse arthroplasty on 03/20. Pt had initial surgery on 03/20 with no complications. She was initially discharged home on 03/23, but subsequently returned to the ED about 8 hours late with complaints of worsening pain and swelling to her surgical site. US showed a hematoma. On 03/26 the hematoma was evacuated and the pt remained hospitalized until 03/30 when she was discharged to [facility] for PT 2/2 some numbess and limited range of motion in her left shoulder. She was discharged on Keflex. Pt has now returned for worsening pain with a plan to perform a shoulder eddi ion and I&D with antibiotic beads on 04/09. Pt has been afebrile throughout admissions except for one post-op fever on 03/26 of 37.6. Plan Vancomycin for treatment of bone and joint infection. Vancomycin IV * Estimated PK Parameters: Vd 0.7 L/kg, David 0.04 hr-1, t1/2 18 hr * Loading dose: 2250 mg (25 mg/kg) * Maintenance dose: 1250 mg IV (14 mg/kg) every 20 hours * Goal trough level : 15 to 20 mcg/mL * Will not order a level at this time due to prolonged half-life. Will order at appropriate interval if patient is still receiving vancomycin. * A less than traditional dose and/or extended dosing interval has/have been selected due to likelihood of drug accumulation in obese patient. Pharmacy will continue to follow and will adjust dose/frequency as necessary. Thank you.
[2019-04-08] MEDS: METOPROLOL SUCC 25MG EXT REL TAB PO SCH (21:09)
[2019-04-08] MEDS: LACTOBACILLUS ACIDOPHILUS (FLORANEX) TAB PO SCH (21:09)
[2019-04-08] MEDS: SENNA 8.6 MG TAB PO SCH (21:09)
[2019-04-08] MEDS: MONTELUKAST SODIUM 10 MG TABLET PO SCH (21:09)
[2019-04-08] MEDS: DOCUSATE SODIUM 100 MG CAP PO SCH (21:09)
--- NOTE | 2019-04-08 22:22 | History and Physical Report ---
DATE OF ADMISSION: 04/08/2019 CHIEF COMPLAINT: Left shoulder drainage. HISTORY OF PRESENT ILLNESS: This is a 78-year-old female patient of Dr. العلي who underwent a left reverse total shoulder arthroplasty on 03/20/2019. She was doing well postoperatively and was discharged on postoperative day #2. Upon discharge she did develop a hematoma under the surgical area. She was readmitted on 03/24/2019 for a hematoma. On 03/26/2019 the patient underwent a left shoulder irrigation and debridement and evacuation of hematoma with drain placement. She did well postoperatively. She was again discharged to rehab; however, she did have to have 4 units of transfusion of blood during that hospital stay. On 04/01/2019 she was discharged to rehab in stable condition. Upon her 2-week postoperative visit today on 04/08/2019 she came from rehab. Upon evaluation she had increased discharge from the wound underneath her incision. Her incision was clean, dry and intact. Samm were intact and skin edges were approximated well over the incision. She did have a wound underneath the incision towards her axilla that was draining. This drainage was cultured and sent for culture and Gram stain. The patient was then directly admitted to [facility] for a possible left shoulder infection. The patient was placed on IV vancomycin with wound care. She had Infectious Disease and Medical consultation done. PAST MEDICAL HISTORY: Coronary artery disease status post an SD in 2013, congestive heart failure with murmur, hypertension, irregular heartbeat, sleep apnea with use of CPAP, diabetes mellitus, sarcoidosis, anemia, osteoarthritis, spine problems, neck problems, upper back problems, sciatica, acid reflux, hiatal hernia, obesity and stage III kidney disease. PAST SURGICAL HISTORY: Carpal tunnel x2, right total knee replacement, right shoulder replacement, recently left reverse total shoulder replacement with a subsequent left shoulder hematoma evacuation and drainage. FAMILY HISTORY: Noncontributory. REVIEW OF SYSTEMS: Chronic left shoulder drainage. No pain. No fevers. Otherwise, denies any shortness of breath, chest pain, nausea, vomiting or any other joint complaints. SOCIAL HISTORY: Nonsmoker, nondrinker. MEDICATIONS: 1. Aspirin 81 mg daily. 2. Ferrous gluconate 324 daily. 3. Fluticasone 50 mcg inhalation daily as needed. 4. Folic acid 1 mg daily. 5. Oxycodone 5 mg as needed. 6. Famotidine 20 mg as needed. 7. Furosemide 40 mg daily. 8. Multivitamin daily. 9. Lidocaine 5% topical film to affected area as needed. 10. Nitroglycerin 0.4 mg sublingual as needed. 11. Nystatin as needed. 12. Docusate sodium 100 mg b.i.d. as needed. 13. Milk of magnesia as needed. 14. Metoprolol 25 mg daily. 15. Acetaminophen as needed. 16. Montelukast 10 mg as needed. 17. Lactobacillus acidophilus as needed. 18. Coumadin therapy, but we will hold that as of her admission. ALLERGIES: ADHESIVES AND MORPHINE. PHYSICAL EXAMINATION: GENERAL: Well-developed, well-nourished 78-year-old female in no acute distress. She is alert and oriented x3 and pleasant. HEENT: Normocephalic, atraumatic. Extraocular motions are intact. Pupils are equal and reactive to light. HEART: Regular rate and rhythm, no murmurs. LUNGS: Clear. ABDOMEN: Soft, nontender, bowel sounds present. EXTREMITIES: Left shoulder reveals the original left reverse total shoulder arthroplasty incision to be clean, dry and intact. Palisade are intact. Skin edges were approximated well. There is some yellow drainage from the distal end of the incision. She also has a skin lesion just distal and proximal to the axilla that is open and draining blood. This appears to be a deep lesion. NEUROLOGIC: Neurovascularly, she is intact in her left upper extremity. DIAGNOSES: Status post left reverse total shoulder arthroplasty, subsequent left hematoma evacuation and now possible left shoulder infection. She has a history of coronary artery disease status post an myocardial infarction, congestive heart failure, hypertension, irregular heartbeat, sleep apnea with a CPAP, diabetes mellitus, sarcoidosis, anemia, osteoarthritis, spine problems, neck problems, upper back problems, sciatica, acid reflux, hiatal hernia, obesity and stage III kidney disease. PLAN: The patient was admitted directly from the office on IV vancomycin. We will get an Infectious Disease and Medical consult. We will do as best we can to reverse her Coumadin therapy so she can have surgery 04/09/19. Necessary consent forms, preoperative testing and clearances are obtained. Plan is for a left shoulder I and D and revision, reverse total shoulder arthroplasty, poly and humeral head components with placement of antibiotic beads. [facility]
[2019-04-09] MEDS ORDERED: CHECK SCOPOLAMINE PATCH PLACEMENT SCH
[2019-04-09] MEDS: SODIUM CHLORIDE 0.9% 1000ML 1,000 ML IV SCH ×2 (05:42→15:35)
[2019-04-09] MEDS ORDERED: PHYTONADIONE 5 MG TAB PO STA (06:42)
[2019-04-09 08:28] LABS: Creatinine Clr Calc Pharmacy 49.8 ml/min; Est GFR (African American) 65.3; Est GFR (Non-African American) 56.3
[2019-04-09] MEDS ORDERED: ROPIVACAINE 0.5% 5 MG/ML 30 ML VIAL ONE (08:49)
[2019-04-09] MEDS ORDERED: EPINEPHrine INJ 1 MG/ML AMP ONE (08:50)
--- NOTE | 2019-04-09 09:43 | Infectious Disease Consult ---
Date of Consultation April 09, 2019 Assessment & Plan (1) Postoperative wound infection: Left shoulder infection following arthroplasty subsequent hematoma, with cultures growing gram-negative bacilli. Have added ertapenem pending further culture results and operative findings. Will follow. (2) Disease due to gram-negative bacteria: History of Present Illness Reason for Consultation: Left shoulder infection Attending Physician: Heath Sosa MD History of Present Illness 78-year-old female with history of pulmonary hypertension, hyperlipidemia, hypertension, sarcoidosis, atrial fibrillation, diabetes mellitus, who is status post left shoulder surgery earlier this month, readmitted subsequently with hematoma for evacuation, now presents with increasing redness and swelling with foul-smelling drainage. Denies any significant pain or fever. Cultures now growing gram-negative bacilli. Patient receiving vitamin K to reverse anticoagulation to allow surgery. No other new complaints. Allergies Allergy/AdvReac Type Severity Reaction Status Date / Time adhesive Allergy Mild RASH & Verified 03/23/19 22:32 BLISTERS NSAIDS (Non-Steroidal AdvReac Intermediate ADVISED TO Verified 03/23/19 22:32 Anti-Inflamma AVOID DUE TO KIDNEY DISEASE morphine AdvReac Mild "SENSITIVITY"- Verified 03/23/19 22:32 "go crazy" Home Medications Home Medications Medication Instructions Recorded Confirmed Type Lactobacillus acidophilus capsule 2 cap PO HS cap 07/11/18 03/23/19 History aspirin 81 mg tablet,delayed 81 mg PO MONWEDFRI tab 07/11/18 03/23/19 History release folic acid 1 mg tablet 1 mg PO QAM 07/11/18 03/23/19 History montelukast 10 mg tablet 10 mg PO QPM 07/11/18 03/23/19 History nitroglycerin 0.4 mg sublingual 0.4 mg SL Q5M PRN 07/11/18 03/23/19 History tablet ranitidine 150 mg capsule 150 mg PO QPM 07/11/18 03/23/19 History warfarin 2 mg tablet 2 mg PO 4XWK tab 07/11/18 03/23/19 History warfarin 4 mg tablet 4 mg PO 3XWK tab 07/11/18 03/23/19 History fluticasone propionate [Flonase 1 spray INTRANASAL ONCE PRN 08/16/18 03/23/19 History Allergy Relief] furosemide 40 mg PO QAM #1 tab 03/23/19 03/23/19 Rx metoprolol succinate 37.5 mg PO BID #1 tab 03/23/19 03/23/19 Rx lidocaine [Lidoderm] 1 patch TOP DAILY #15 ea 03/30/19 Rx oxycodone 5 - 10 mg PO Q4H PRN #24 tab 03/30/19 Rx aspirin 81 mg tablet PO .TAKE 1 TABLET M/W/F tab 04/02/19 04/02/19 History cyanocobalamin (vit B-12) 500 mcg PO tab 04/02/19 04/02/19 History tablet doxycycline hyclate 100 mg tablet PO .TAKE 1 TABLET TWICE #14 tab 04/02/19 04/02/19 History ferrous sulfate 325 mg (65 mg PO .TAKE 1 TABLET DAILY #30 tab 04/02/19 04/02/19 History iron) tablet hydrocodone 5 mg-acetaminophen 325 PO .1/2 to 1 tablet ever #30 tab 04/02/19 04/02/19 History mg tablet ranitidine 150 mg tablet PO .Take 1 tablet daily #180 tab 04/02/19 04/02/19 History Patient History Medical History Pulmonary congestion (Acute) Paroxysmal atrial fibrillation (Acute) Pacemaker (Acute) Obstructive sleep apnea of adult (Acute) GERD without esophagitis (Acute) Diabetes mellitus with kidney disease (Acute) Anticoagulant long-term use (Acute) Atrial fibrillation Paroxysmal, then persistent with difficult to control rhythm and rate, ultimately requiring AV junction ablation and insertion of dual-chamber BiV pacer 05/2016 CAD (coronary artery disease) s/p NH and cath 2012, not amenable to PCI CHF (congestive heart failure) Right sided 2/2 elevated pulmonary pressures/sarcoidosis CKD (chronic kidney disease) stage 3, GFR 30-59 ml/min Cough Currently with exacerbation of underlying pulm issues. On Doxy with recent Prednisone course. Pre-op CXR 03/07 showed no acute disease. Seen by PCP 03/14 for f/u-- "cough appears much improved." GERD (gastroesophageal reflux disease) H/O acute myocardial infarction 2012 HTN (hypertension) History of diabetes mellitus, type II Diet controlled Hypercalcemia Hyperlipidemia HISTORY Hyponatremia Obesity Obstructive sleep apnea on CPAP On home oxygen therapy 2/2 SARCOIDOSIS. O2 AT 2L PRN Pulmonary hypertension Sarcoidosis pulmonary and ocular involvement Spinal stenosis Surgical History Status post reverse total arthroplasty of right shoulder Fusion of spine T12-L5 (~2013) H/O cardiac radiofrequency ablation 2015 H/O tubal ligation History of cardiac cath 2012 History of carpal tunnel release BILATERAL History of colonoscopy History of repair of rotator cuff RT SHOULDER S/P cardiac pacemaker procedure [employer] DEVICE/DR. RIDLEY CHECKS DEVICE APT 03/10/19 S/P rotator cuff repair 2012, complicated by post-op embolic NH, thrombus observed Status post reverse arthroplasty of left shoulder 03/20/1919 Grade 1 view Mac 3 blade Total knee replacement status R knee (TOTAL OF 8 SURGERIES) Family History Grandfather No problems noted. Grandmother No problems noted. Aunt Family history of diabetes mellitus Grandmother (Paternal) Family history of diabetes mellitus Grandfather (Paternal) Family history of diabetes mellitus Social History Preferred Language: Kinyarwanda Communication Ability: Effective Visual Impairment: No Limitations Brand Advocate Required: No Beliefs That Will Affect Care: None marital status: Current Living Situation: Alone Other Information That Helps Us Care for You: No Feels Safe at Home: Yes Smoking Status: Never smoker Do You Dip or Chew Tobacco: No Second Hand Exposure: Yes Hx Alcohol Use: No Hx Substance Use: No Review of Systems Review of Systems: All systems reviewed & are unremarkable except as noted in HPI & below Results & Data Vital Signs (Past 12 Hours) Vital Signs Temp Pulse Resp BP Pulse Ox 04/09/19 07:56 37.1 C 62 18 117/70 90 04/08/19 22:52 37.2 C 63 18 105/63 94 Laboratory Results Short CBC 04/08/19 Range/Units 16:55 WBC 9.52 (4.8-10.8) K/uL Hgb 11.0 L (12.0-16.0) g/dL Hct 34.5 L (37-47) % Plt Count 412 H (130-400) K/uL BMP 04/08/19 04/09/19 16:55 07:35 Sodium 130 L Potassium 4.2 Chloride 94 L Carbon Dioxide 31 BUN 21 H Creatinine 1.14 0.97 Glucose 128 H Calcium 8.8 Diagnostic Findings Microbiology 04/08/19 14:30 Shoulder,Left Gram Stain - Final 04/08/19 14:30 Shoulder,Left Wound Culture - Preliminary Gram negative bacilli
[2019-04-09] MEDS: LIDOCAINE 5% 1 PATCH TD SCH (10:28)
[2019-04-09] MEDS: METOPROLOL SUCC 25MG EXT REL TAB PO SCH ×2 (10:29→21:32)
[2019-04-09] MEDS: FERROUS GLUCONATE 324 MG TAB PO SCH ×2 (10:30→17:14)
[2019-04-09] MEDS: DOCUSATE SODIUM 100 MG CAP PO SCH ×2 (10:30→21:28)
[2019-04-09] MEDS: MULTIVITAMIN TAB PO SCH (10:30)
[2019-04-09] MEDS: FOLIC ACID 1 MG TAB PO SCH (10:30)
[2019-04-09] MEDS: FUROSEMIDE 40 MG TAB PO SCH (10:30)
[2019-04-09] MEDS: ERTAPENEM SODIUM 1,000 MG in SODIUM CHLORIDE 0.9% 50 ML IV SCH (11:06)
--- NOTE | 2019-04-09 11:45 | XRay Report ---
XR chest 1V portable CLINICAL HISTORY: crackles in bases COMPARISON STUDY: 03/07/2019 FINDINGS: The heart is the upper limits of normal in size. There is a left subclavian dual-chamber ce ntral venous pacemaker present. There are low lung volumes with elevation the right hemidiaphragm. Th ere is diffuse interstitial thickening, a finding which likely indicates either congestive failure, o r a bilateral interstitial inflammatory process. Postsurgical changes involve the thoracolumbar spine and both shoulders. IMPRESSION: 1. Low lung volumes with elevation right hemidiaphragm 2. Diffuse elevation of the interstitium. While likely representing congestive failure/fluid overload , a bilateral interstitial inflammatory process could appear similar Electronically signed by: Dillon Bagley M.D. 04/09/2019 11:44 AM
[2019-04-09 12:23] LABS: Prothrombin Time 28.4 Seconds (9.0-12.0)
[2019-04-09] MEDS ORDERED: PHYTONADIONE 5 MG in SODIUM CHLORIDE 0.9% 50 ML IV ONE ×2 (12:33→18:15)
[2019-04-09] MEDS ORDERED: FUROSEMIDE 40 MG/4 ML VIAL IV STA (12:37)
--- NOTE | 2019-04-09 12:43 | Hospitalist Progress Note ---
Date of Service April 09, 2019 Assessment & Plan (1) Postoperative wound infection: Post TSA 03/20 with subsequent hematoma requiring 4 units PRBCs. Patient now with apparent infection of surgical site - ID on board - placed patient on ertapenem for cultures growing gram negative bacteria. - pain control per primary, patient is comfortable at present - RCRI is 10.1%. Patient is mildly hyponatremic and apparently somewhat fluid overloaded as well as therapeutic INR. See below for optimization measures (2) Paroxysmal atrial fibrillation: On Coumadin - give 5 mg po vitamin K this morning by surgery. Recheck of INR shows patient at 3.0. Will give 5 mg IV vitamin K now and recheck again at 1700. Given her difficulties with bleeding at the site, would not recommend bridging. (3) Chronic congestive heart failure: Patient with pitting edema in bilateral lower extremities as well as crackles to auscultation in bilateral lungs. BNP was 9,328 and chest Xray showed congestive failure/fluid overload. Patient takes po furosemide 40 mg daily. Will give 40 mg IV now. (4) Sarcoidosis: (5) CAD (coronary artery disease): Resume ASA when ok with surgery, continue metoprolol, does not appear to be on a statin (6) Hypertension: continue metoprolol Subjective Ms. Hendrix is not having pain. She does complain about a strong smell coming from her surgical wound. Review of Systems Review of Systems: All systems reviewed & are unremarkable except as noted in HPI & below Physical Exam Physical Exam: General: no distress Eyes: normal inspection, PERLL Respiratory: chest non tender, crackles bilateral bases to auscultation, no respiratory distress, no accessory muscle use Cardiac: regular rate and rhythm, no rub or gallop, no murmur, +2 pitting edema bilateral lower extremities GI/: active bowel sounds, no abd pain or tenderness, soft, non distended Extremities: normal range of motion, normal strength, non tender Neuro/Psych: alert and oriented x 3, normal mood and affect Skin: normal color, dry, left shoulder incision site with foul smelling drainage. Results & Data Vital Signs (Past 12 Hours) Vital Signs Temp Pulse Resp BP Pulse Ox 04/09/19 07:56 37.1 C 62 18 117/70 90
[2019-04-09] MEDS ORDERED: FUROSEMIDE 40 MG in SYRINGE 0 ML IV ONE ×2 (12:45→21:00)
[2019-04-09 14:10] LABS: Appearance Urine Clear (Clear); Bacteria Urine Automated Negative (Negative); Bilirubin Urine Negative (Negative); Blood Urine 2+ (Negative); Color Urine Dark Yellow; Epithelial Cell Urine Auto >30 /lpf (0-5); Glucose Urine UA Negative (Negative); Ketones Urine Negative (Negative); Leukocyte Esterase Urine 2+ (Negative); Nitrite Urine Negative (Negative); Protein Urine Negative (Negative); Specific Gravity Urine 1.016 (1.000-1.030); Urobilinogen Urine Negative (Negative)
--- NOTE | 2019-04-09 15:26 | Anesthesiology Consultation ---
Date of Service April 09, 2019 Assessment & Plan Chart Review Chart Review: Pending: Refer to Additional Notes / Consult section Consults Requested Pt is being managed by hospitalist. Currently with INR of 3 and is being given vitamin K to decrease INR prior to surgery. Also with chronic CHF and elevated BNP, being given IV lasix. Hyponatremia with Na of 130. Will check PRP and CBC in am. INR is being recheck later this evening. History Surgery Operation Date: 04/10/19 13:00 Proposed Procedures p Left Shoulder Incision and Drainage, - Heath Sosa MD s Revision Reverse Total Shoulder Arthroplasty - Poly and Humeral Head with Placement of Antibiotic Beads - Heath Sosa MD Height/Weight Height: 1.55 m Weight: 90.8 kg Allergies Allergy/AdvReac Type Severity Reaction Status Date / Time adhesive Allergy Mild RASH & Verified 03/23/19 22:32 BLISTERS NSAIDS (Non-Steroidal AdvReac Intermediate ADVISED TO Verified 03/23/19 22:32 Anti-Inflamma AVOID DUE TO KIDNEY DISEASE morphine AdvReac Mild "SENSITIVITY"- Verified 03/23/19 22:32 "go crazy" Medications Home Medications Medication Instructions Recorded Confirmed Last Taken Lactobacillus acidophilus capsule 2 cap PO HS cap 07/11/18 03/23/19 03/18/19 20:00 aspirin 81 mg tablet,delayed 81 mg PO MONWEDFRI tab 07/11/18 03/23/19 03/21/19 release folic acid 1 mg tablet 1 mg PO QAM 07/11/18 03/23/19 03/18/19 08:00 montelukast 10 mg tablet 10 mg PO QPM 07/11/18 03/23/19 03/18/19 20:00 nitroglycerin 0.4 mg sublingual 0.4 mg SL Q5M PRN 07/11/18 03/23/19 Unknown tablet ranitidine 150 mg capsule 150 mg PO QPM 07/11/18 03/23/19 03/23/19 16:30 warfarin 2 mg tablet 2 mg PO 4XWK tab 07/11/18 03/23/19 03/23/19 16:30 warfarin 4 mg tablet 4 mg PO 3XWK tab 07/11/18 03/23/19 03/12/19 21:00 fluticasone propionate [Flonase 1 spray INTRANASAL ONCE PRN 08/16/18 03/23/19 03/17/19 20:00 Allergy Relief] furosemide 40 mg PO QAM #1 tab 03/23/19 03/23/19 03/18/19 07:00 metoprolol succinate 37.5 mg PO BID #1 tab 03/23/19 03/23/19 03/19/19 06:00 lidocaine [Lidoderm] 1 patch TOP DAILY #15 ea 03/30/19 Unknown oxycodone 5 - 10 mg PO Q4H PRN #24 tab 03/30/19 Unknown aspirin 81 mg tablet PO .TAKE 1 TABLET M/W/F tab 04/02/19 04/02/19 Unknown cyanocobalamin (vit B-12) 500 mcg PO tab 04/02/19 04/02/19 Unknown tablet doxycycline hyclate 100 mg tablet PO .TAKE 1 TABLET TWICE #14 tab 04/02/19 04/02/19 Unknown ferrous sulfate 325 mg (65 mg PO .TAKE 1 TABLET DAILY #30 tab 04/02/19 04/02/19 Unknown iron) tablet hydrocodone 5 mg-acetaminophen 325 PO .1/2 to 1 tablet ever #30 tab 04/02/19 04/02/19 Unknown mg tablet ranitidine 150 mg tablet PO .Take 1 tablet daily #180 tab 04/02/19 04/02/19 Unknown Active Medications Generic Name Dose Route Start Last Admin Trade Name Freq PRN Reason Stop Dose Admin Docusate Sodium 100 mg 04/08/19 21:00 04/09/19 10:30 Colace PO 05/08/19 20:59 Not Given BID JEROMY Ferrous Gluconate 324 mg 04/08/19 17:00 04/09/19 10:30 Ferrous Gluconate PO 05/08/19 16:59 324 mg BIDM JEROMY Administration Folic Acid 1 mg 04/09/19 09:00 04/09/19 10:30 Folvite PO 05/09/19 08:59 1 mg QAM JEROMY Administration Furosemide 40 mg 04/09/19 09:00 04/09/19 10:30 Lasix PO 05/09/19 08:59 40 mg QAM JEROMY Administration Sodium Chloride 1,000 mls @ 100 mls/hr 04/08/19 16:25 04/09/19 13:02 Nss 1000ml IV 05/08/19 16:24 100 mls/hr .Q10H JEROMY Infusion Ertapenem 1,000 mg/ Sodium 60 mls @ 100 mls/hr 04/09/19 10:00 04/09/19 11:45 Chloride IV 05/21/19 09:59 Infused Q24H JEROMY Infusion Protocol Lactobacillus Acidophilus 4 tab 04/08/19 21:00 04/08/19 21:09 Floranex PO 05/08/19 20:59 4 tab HS JEROMY Administration Lidocaine 1 patch 04/09/19 09:00 04/09/19 10:28 Lidoderm 5% TD 05/09/19 08:59 1 patch DAILY JEROMY Administration Metoprolol Succinate 37.5 mg 04/08/19 21:00 04/09/19 10:29 Toprol Xl PO 05/08/19 20:59 37.5 mg BID JEROMY Administration Miscellaneous 1 ea 04/08/19 21:00 04/08/19 21:10 Remove Lidoderm Patch N/A 05/08/19 20:59 1 ea DAILY@2100 JEROMY Administration Montelukast Sodium 10 mg 04/08/19 21:00 04/08/19 21:09 Singulair PO 05/08/19 20:59 10 mg QPM JEROMY Administration Multivitamins 1 tab 04/09/19 09:00 04/09/19 10:30 Multivitamin Tab PO 05/09/19 08:59 1 tab QAM JEROMY Administration Ranitidine HCl 150 mg 04/08/19 21:00 04/08/19 21:09 Zantac PO 05/08/19 20:59 150 mg QPM JEROMY Administration Sennosides 17.2 mg 04/08/19 21:00 04/08/19 21:09 Senokot PO 05/08/19 20:59 17.2 mg HS JEROMY Administration NPO Date Last Intake of Fluids: 04/08/19 Time Last Intake of Fluids: 23:59 Date Last Intake of Solids: 04/08/19 Time Last Intake of Solids: 23:59 Past Medical History Medical History Pulmonary congestion (Acute) Paroxysmal atrial fibrillation (Acute) Pacemaker (Acute) Obstructive sleep apnea of adult (Acute) GERD without esophagitis (Acute) Diabetes mellitus with kidney disease (Acute) Anticoagulant long-term use (Acute) Atrial fibrillation Paroxysmal, then persistent with difficult to control rhythm and rate, ultimately requiring AV junction ablation and insertion of dual-chamber BiV pacer 05/2016 CAD (coronary artery disease) s/p CA and cath 2012, not amenable to PCI CHF (congestive heart failure) Right sided 2/2 elevated pulmonary pressures/sarcoidosis CKD (chronic kidney disease) stage 3, GFR 30-59 ml/min Cough Currently with exacerbation of underlying pulm issues. On Doxy with recent Prednisone course. Pre-op CXR 03/07 showed no acute disease. Seen by PCP 03/14 for f/u-- "cough appears much improved." GERD (gastroesophageal reflux disease) H/O acute myocardial infarction 2012 HTN (hypertension) History of diabetes mellitus, type II Diet controlled Hypercalcemia Hyperlipidemia HISTORY Hyponatremia Obesity Obstructive sleep apnea on CPAP On home oxygen therapy 2/2 SARCOIDOSIS. O2 AT 2L PRN Pulmonary hypertension Sarcoidosis pulmonary and ocular involvement Spinal stenosis Exercise / Class Metabolic Activity III < 4 Walking/Shop/Light housework Past Family History Family History Grandfather No problems noted. Grandmother No problems noted. 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 RIDLEY CHECKS DEVICE APT 03/10/19 S/P rotator cuff repair 2012, complicated by post-op embolic CA, thrombus observed Status post reverse arthroplasty of left shoulder 03/20/1919 Grade 1 view Mac 3 blade Total knee replacement status R knee (TOTAL OF 8 SURGERIES) Past Anesthesia History No Hx of Anesthesia Complications and No Family Hx of Anesthesia Complications History of PONV No Hx of PONV and No Hx of Motion Sickness Social History Smoking Status: Never smoker Do You Dip or Chew Tobacco: No Hx Alcohol Use: No Alcohol type: other alcohol intake frequency: a few times a month Hx Substance Use: No substance use type: does not use Physical Exam Vital Signs Last Vital Signs Temp 36.4 C L 04/09/19 15:14 Pulse 65 04/09/19 15:14 Resp 18 04/09/19 15:14 BP 140/68 04/09/19 15:14 Pulse Ox 98 04/09/19 15:14 Testing Laboratory Results 04/08/19 16:55 04/09/19 07:35 04/08/19 04/08/19 04/09/19 16:55 16:55 07:45 PT 32.8 H 28.4 H INR 3.5 H 3.0 H Urine Color Urine Appearance Urine pH Ur Specific [place] Urine Protein Urine Glucose (UA) Urine Ketones Urine Nitrite Ur Leukocyte Esterase Urine WBC (Auto) Urine RBC (Auto) U Hyaline Cast (Auto) U Epithel Cells (Auto) Urine Bacteria (Auto) Blood Type A Positive Antibody Screen NEGATIVE 04/09/19 13:45 PT INR Urine Color Dark Yellow Urine Appearance Clear Urine pH 5.0 Ur Specific [place] 1.016 Urine Protein Negative Urine Glucose (UA) Negative Urine Ketones Negative Urine Nitrite Negative Ur Leukocyte Esterase 2+ H Urine WBC (Auto) 5-10 H Urine RBC (Auto) 10-30 H U Hyaline Cast (Auto) 1-5 U Epithel Cells (Auto) >30 H Urine Bacteria (Auto) Negative Blood Type Antibody Screen 04/08/19 14:30 Gram Stain - Final Shoulder,Left Wound Culture - Preliminary Gram negative bacilli 04/08/19 16:55 04/09/19 07:35 04/08/19 04/08/19 04/09/19 16:55 16:55 07:45 PT 32.8 H 28.4 H INR 3.5 H 3.0 H Urine Color Urine Appearance Urine pH Ur Specific [place] Urine Protein Urine Glucose (UA) Urine Ketones Urine Nitrite Ur Leukocyte Esterase Urine WBC (Auto) Urine RBC (Auto) U Hyaline Cast (Auto) U Epithel Cells (Auto) Urine Bacteria (Auto) Blood Type A Positive Antibody Screen NEGATIVE 04/09/19 13:45 PT INR Urine Color Dark Yellow Urine Appearance Clear Urine pH 5.0 Ur Specific [place] 1.016 Urine Protein Negative Urine Glucose (UA) Negative Urine Ketones Negative Urine Nitrite Negative Ur Leukocyte Esterase 2+ H Urine WBC (Auto) 5-10 H Urine RBC (Auto) 10-30 H U Hyaline Cast (Auto) 1-5 U Epithel Cells (Auto) >30 H Urine Bacteria (Auto) Negative Blood Type Antibody Screen 04/08/19 14:30 Gram Stain - Final Shoulder,Left Wound Culture - Preliminary Gram negative bacilli Laboratory Tests 03/07/19 03/23/19 04/08/19 12:47 22:25 16:55 PT INR APTT 45.6 H* Sodium 130 L Potassium 4.2 Chloride 94 L Carbon Dioxide 31 BUN 21 H Creatinine Glucose 128 H Hemoglobin A1c 6.2 H 04/09/19 04/09/19 07:35 07:45 PT 28.4 H INR 3.0 H APTT Sodium Potassium Chloride Carbon Dioxide BUN Creatinine 0.97 Glucose Hemoglobin A1c Laboratory Tests 03/07/19 03/23/19 04/08/19 12:47 22:25 16:55 PT INR APTT 45.6 H* Sodium 130 L Potassium 4.2 Chloride 94 L Carbon Dioxide 31 BUN 21 H Creatinine Glucose 128 H Hemoglobin A1c 6.2 H 04/09/19 04/09/19 07:35 07:45 PT 28.4 H INR 3.0 H APTT Sodium Potassium Chloride Carbon Dioxide BUN Creatinine 0.97 Glucose Hemoglobin A1c Electrocardiogram Date: 03/06/19 03/06/2019(EKG)- V-paced rhythm Chest X-Ray Date: 03/07/19 Findings: + NAD chronic and postop changes Echocardiogram Date: 11/07/17 EF: 55 Valvular Disease: + MR (moderate) RV-moderately dilated;+ RV systolic dysfunction; LA-severely dilated;RA-moderately dilated TR-moderate -severe Severe pulmonary HTN PA systolic pressure 65 Torr Cardiac Catheterization Date: 08/31/13 Findings: + LCX (OM1 20%) and + pertinent finding (LAD-prox.30%; Mid 100%; D2 total occlusion); no RCA and no LMA Intervention: + PCI (to LAD) Location: s/p acute anterior wall CA
[2019-04-09] MEDS ORDERED: VANCOMYCIN HCL 1,250 MG in SODIUM CHLORIDE 0.9% 250 ML IV SCH (16:00)
[2019-04-09] MEDS: VANCOMYCIN HCL 1,250 MG in SODIUM CHLORIDE 0.9% 250 ML IV SCH (17:09)
[2019-04-09 17:20] LABS: INR 2.5 (0.9-1.1); Prothrombin Time 23.8 Seconds (9.0-12.0)
--- NOTE | 2019-04-09 17:38 | Orthopedic Progress Note ---
Date of Service April 09, 2019 Assessment & Plan (1) Postoperative wound infection: Wound infection status post incision and drainage of a massive hematoma due to bridging with Lovenox and being on Coumadin as anticoagulant for A. fib status post reverse shoulder replacement. Patient had no signs of infection at all at the time of draining the hematoma but developed infection after discharge from [facility] while she was at the rehab hospital. Infection felt to be acute within the last 2 weeks. Patient placed on broad- spectrum antibiotics covering gram-negative and gram-positive organisms. Culture growing gram-negative bacilli. I did culture the drainage coming out of the shoulder but there was an open wound there and this possibly could be a contaminant. At this time we need to reverse her anticoagulants so I can explore the wound and debride the necrotic tissue drain any infection and if his deep infection alternatives will be humeral head and polyethylene exchange with extensive irrigation debridement and retention of components versus excising the components placing a antibiotic spacer if infection appears to be more severe. Patient aware of both scenarios. Subjective Patient has of any pain in her left shoulder and she does not feel ill Review of Systems Review of Systems: No systemic complaints Physical Exam Physical Exam: Patient wearing edema glove left hand patient has incision with skin necrosis of a blister that communicates with her incision still with drainage from this area. Patient clearly had skin necrosis below the blister with necrotic fat. Results & Data Vital Signs (Past 12 Hours) Vital Signs Temp Pulse Resp BP Pulse Ox 04/09/19 15:14 36.4 C L 65 18 140/68 98 04/09/19 07:56 37.1 C 62 18 117/70 90
[2019-04-09] MEDS ORDERED: PHYTONADIONE 10 MG in SODIUM CHLORIDE 0.9% 50 ML IV ONE (19:30)
[2019-04-09] MEDS: SENNA 8.6 MG TAB PO SCH (21:29)
[2019-04-09] MEDS: LACTOBACILLUS ACIDOPHILUS (FLORANEX) TAB PO SCH (21:32)
[2019-04-09] MEDS: MONTELUKAST SODIUM 10 MG TABLET PO SCH (21:33)
[2019-04-09 23:11] LABS: INR 1.8 (0.9-1.1); Prothrombin Time 17.8 Seconds (9.0-12.0)
[2019-04-10] MEDS ORDERED: PHYTONADIONE 5 MG in SODIUM CHLORIDE 0.9% 50 ML IV ONE (00:01)
[2019-04-10] MEDS ORDERED: EPINEPHrine INJ 1 MG/ML AMP ONE (06:38)
[2019-04-10] MEDS ORDERED: ROPIVACAINE 0.5% 5 MG/ML 30 ML VIAL ONE (06:38)
[2019-04-10] MEDS ORDERED: DEXAMETHASONE SOD INJ 4 MG/ML VIAL ONE (06:38)
[2019-04-10 07:35] LABS: Hematocrit (blood only) 29.9 % (37-47); Hemoglobin 9.6 g/dL (12.0-16.0); Mean Corpuscular Hgb Conc 32.1 g/dL (32-36); Mean Corpuscular Volume 99.7 fL (80-100); Mean Platelet Volume 9.9 fL (7.4-10.4); Platelet Count 296 K/uL (130-400); RDW Coefficient of Variation 18.9 % (11.5-14.5); RDW Standard Deviation 67.6 fL (36.4-46.3); White Blood Count 7.43 K/uL (4.8-10.8)
[2019-04-10 07:44] LABS: INR 1.5 (0.9-1.1); Prothrombin Time 15.1 Seconds (9.0-12.0)
[2019-04-10 08:00] LABS: BUN Creatinine Ratio 20.3 (10-20); Calcium 8.5 mg/dl (8.5-10.1); Creatinine Clr Calc Pharmacy 56.2 ml/min; Est GFR (African American) 75.5; Est GFR (Non-African American) 65.2; Potassium 3.7 mmol/L (3.5-5.1)
[2019-04-10] MEDS ORDERED: FUROSEMIDE 40 MG in SYRINGE 0 ML IV ONE (08:01)
[2019-04-10] MEDS: DOCUSATE SODIUM 100 MG CAP PO SCH ×2 (08:39→21:07)
[2019-04-10] MEDS: FERROUS GLUCONATE 324 MG TAB PO SCH ×2 (08:39→19:05)
[2019-04-10] MEDS: METOPROLOL SUCC 25MG EXT REL TAB PO SCH ×2 (08:39→21:07)
[2019-04-10] MEDS: FOLIC ACID 1 MG TAB PO SCH (08:39)
[2019-04-10] MEDS: MULTIVITAMIN TAB PO SCH (08:39)
[2019-04-10] MEDS: LIDOCAINE 5% 1 PATCH TD SCH (08:40)
--- NOTE | 2019-04-10 08:42 | Orthopedic Progress Note ---
Date of Service April 10, 2019 Assessment & Plan (1) Postoperative wound infection: Left shoulder wound infection status post incision and drainage of a massive hematoma due to bridging with Lovenox and being on Coumadin as anticoagulant for A. fib status post reverse shoulder replacement. Patient had no signs of infection at all at the time of draining the hematoma but developed infection after discharge from [facility] while she was at the rehab hospital. Infection felt to be acute within the last 2 weeks. Patient placed on broad-spectrum antibiotics covering gram-negative and gram-positive organisms. Culture growing gram-negative bacilli. I did culture the drainage coming out of the shoulder but there was an open wound there and this possibly could be a contaminant. At this time we need to reverse her anticoagulants so we can explore the wound and debride the necrotic tissue drain any infection and if his deep infection alternatives will be humeral head and polyethylene exchange with extensive irrigation debridement and retention of components versus excising the components placing a antibiotic spacer if infection appears to be more severe. Patient aware of both scenarios. Appreciate ID input- Vaco and Ertapenem on board. Patient NPO for poss surgery today pending coumadin reversal, INR 1.8 this AM. Appreciate medical input in the case. Subjective Patient states she has little pain in left shoulder. Denies SOB, CP, N/V. Physical Exam Physical Exam: Left shoulder dressings in tact still drainage from skin wound below surgical incision. Distally fingers mobile, N/V+. Results & Data Vital Signs (Past 12 Hours) Vital Signs Temp Pulse Resp BP Pulse Ox 04/10/19 07:30 36.9 C 60 16 113/69 100 04/09/19 23:21 37.4 C 60 18 101/58 L 97 04/09/19 21:30 60 104/66 04/09/19 20:46 37.1 C 60 16 104/65 98
--- NOTE | 2019-04-10 09:33 | Hospitalist Progress Note ---
Date of Service April 10, 2019 Assessment & Plan (1) Postoperative wound infection: Post TSA 03/20 with subsequent hematoma requiring 4 units PRBCs. Patient now with apparent infection of surgical site - ID on board - placed patient on ertapenem for cultures growing ESBL Klebsiella - can dc vancomycin given culture results. - pain control per primary, patient is comfortable at present (2) Paroxysmal atrial fibrillation: On Coumadin - reversed to INR of 1.5 for surgery today. Restart Coumadin when ok with surgery. Would not recommend bridging given previous hematoma. (3) Chronic congestive heart failure: Acute on chronic diastolic CHF treated with IV Lasix Patient with pitting edema in bilateral lower extremities as well as crackles to auscultation in bilateral lungs. BNP was 9,328 on 04/09 and chest Xray showed congestive failure/fluid overload. Diuresed with IV Lasix preop (4) Sarcoidosis: (5) CAD (coronary artery disease): Resume ASA when ok with surgery, continue metoprolol, does not appear to be on a statin (6) Hypertension: continue metoprolol Subjective Ms. Hendrix has no complaints. Review of Systems Review of Systems: All systems reviewed & are unremarkable except as noted in HPI & below Physical Exam Physical Exam: General: no distress Eyes: normal inspection, PERLL Respiratory: chest non tender, clear to auscultation, normal breath sounds, no respiratory distress, no accessory muscle use Cardiac: regular rate and rhythm, no rub or gallop, no murmur, no edema, no jvd GI/: active bowel sounds, no abd pain or tenderness, soft, non distended Extremities: normal range of motion, normal strength, non tender Neuro/Psych: alert and oriented x 3, normal mood and affect Skin: normal color, dry Results & Data Vital Signs (Past 12 Hours) Vital Signs Temp Pulse Resp BP Pulse Ox 04/10/19 07:30 36.9 C 60 16 113/69 100 04/09/19 23:21 37.4 C 60 18 101/58 L 97
[2019-04-10] MEDS: VANCOMYCIN HCL 1,250 MG in SODIUM CHLORIDE 0.9% 250 ML IV SCH (10:35)
[2019-04-10] MEDS: ERTAPENEM SODIUM 1,000 MG in SODIUM CHLORIDE 0.9% 50 ML IV SCH (10:35)
[2019-04-10] MEDS ORDERED: SUCCINYLCHOLINE CHLORIDE 20 MG/ML 10 ML VIAL ONE (12:25)
[2019-04-10] MEDS ORDERED: fentaNYL citrate 100 MCG/2 ML VIAL ONE ×2 (12:25→16:48)
[2019-04-10] MEDS ORDERED: CISATRACURIUM BESYLATE IV SOLN 2 MG/ML 10 ML VIAL IV ONE (12:25)
[2019-04-10] MEDS ORDERED: PROPOFOL IV EMULSION 10 MG/ML 20 ML VIAL IV ONE (12:25)
[2019-04-10] MEDS ORDERED: LIDOCAINE HCL 2% 2 ML VIAL/AMP(20MG/ML) INFIL ONE (12:25)
[2019-04-10] MEDS ORDERED: ONDANSETRON INJ 2 MG/ML 2 ML VIAL ONE (12:25)
[2019-04-10] MEDS ORDERED: MIDAZOLAM HCL 1 MG/ML 2ML VIAL ONE (12:25)
[2019-04-10] MEDS ORDERED: BACITRACIN INJ 50,000 UNIT VIAL ONE ×2 (12:37→15:18)
[2019-04-10] MEDS ORDERED: VANCOMYCIN HCL 1000MG/20ML VIAL ONE (12:37)
[2019-04-10] MEDS ORDERED: GENTAMICIN SULFATE 40 MG/ML 2 ML VIAL ONE (12:37)
--- NOTE | 2019-04-10 13:15 | Infectious Disease Progress Nt ---
Date of Service April 10, 2019 Assessment & Plan (1) Postoperative wound infection: Left shoulder infection following arthroplasty subsequent hematoma, with cultures growing ESBL Klebsiella. Patient to continue on ertapenem. Await surgical exploration. (2) Disease due to gram-negative bacteria: Subjective Patient states she has little pain in left shoulder. Denies SOB, CP, N/V. Cultures growing resistant Klebsiella. Review of Systems Review of Systems: All systems reviewed & are unremarkable except as noted in HPI & below Physical Exam Constitutional: WD/WN, vitals as above comfortable; no acute distress Eyes: PERRL, conjunctivae normal, anicteric sclerae ENMT: external ear and nose normal, oropharynx normal Neck: trachea midline, no thyromegaly neck nontender Respiratory: normal respiratory effort, lungs clear to auscultation normal percussion; no respiratory distress Cardiovascular: Rate/Rhythm: regular rate and regular rhythm Heart Sounds: normal S1 and normal S2; no gallop, no murmur and no cardiac rub Gastrointestinal (Abdomen): normal bowel sounds, soft, nontender, no hepatosplenomegaly Musculoskeletal: no cyanosis or clubbing, extremities motor strength 5/5 No spinal tenderness, no joint swelling or erythema Skin: no rashes, warm and dry no lesions Neurologic: moves all extremities and awake; no focal motor deficits Motor/Sensory: no sensory deficit Psychiatric: A+Ox3, euthymic affect Lymphatic: no cervical or axillary lymphadenopathy no inguinal lymphadenopathy Results & Data Vital Signs (Past 12 Hours) Vital Signs Temp Pulse Resp BP Pulse Ox 04/10/19 12:30 36.8 C 60 20 107/54 L 100 04/10/19 07:30 36.9 C 60 16 113/69 100 Laboratory Results Short CBC 04/10/19 Range/Units 07:18 WBC 7.43 (4.8-10.8) K/uL Hgb 9.6 L (12.0-16.0) g/dL Hct 29.9 L (37-47) % Plt Count 296 (130-400) K/uL BMP 04/10/19 07:18 Sodium 136 Potassium 3.7 Chloride 100 Carbon Dioxide 28 BUN 18 Creatinine 0.86 Glucose 92 Calcium 8.5 Urine 04/09/19 Range/Units 13:45 Urine Color Dark Yellow Urine Appearance Clear (Clear) Urine pH 5.0 (4.5-7.5) Ur Specific [place] 1.016 (1.000-1.030) Urine Protein Negative (Negative) Urine Glucose (UA) Negative (Negative) Diagnostic Findings Microbiology 04/08/19 14:30 Shoulder,Left Gram Stain - Final 04/08/19 14:30 Shoulder,Left Wound Culture - Preliminary Klebsiella pneumoniae ESBL
--- NOTE | 2019-04-10 13:37 | Orthopedic Progress Note ---
Date of Service April 10, 2019 Assessment & Plan (1) Postoperative wound infection: Left shoulder wound infection status post incision and drainage of a massive hematoma due to bridging with Lovenox and being on Coumadin as anticoagulant for A. fib status post reverse shoulder replacement. Patient had no signs of infection at all at the time of draining the hematoma but developed infection after discharge from [facility] while she was at the rehab hospital. Infection felt to be acute within the last 2 weeks. Patient placed on broad-spectrum antibiotics covering gram-negative and gram-positive organisms. Culture growing gram-negative bacilli. I did culture the drainage coming out of the shoulder but there was an open wound there and this possibly could be a contaminant. At this time we need to reverse her anticoagulants so we can explore the wound and debride the necrotic tissue drain any infection and if his deep infection alternatives will be humeral head and polyethylene exchange with extensive irrigation debridement and retention of components versus excising the components placing a antibiotic spacer if infection appears to be more severe. Patient aware of both scenarios. Appreciate ID input- Vaco and Ertapenem on board. Patient NPO for poss surgery today pending coumadin reversal, INR 1.8 this AM. Appreciate medical input in the case. Subjective Patient states she has little pain in left shoulder. Denies SOB, CP, N/V. Cultures growing resistant Klebsiella. Physical Exam Physical Exam: More necrosis central region of incision with clear drainage some increase necrosis since evaluation yesterday Results & Data Vital Signs (Past 12 Hours) Vital Signs Temp Pulse Resp BP Pulse Ox 04/10/19 12:30 36.8 C 60 20 107/54 L 100 04/10/19 07:30 36.9 C 60 16 113/69 100
[2019-04-10] MEDS ORDERED: ALBUMIN HUMAN 5% 12.5 GM/250 ML VIAL IV ONE (13:47)
[2019-04-10] MEDS ORDERED: SODIUM CHLORIDE 0.9% 250 ML IV PRN (14:07)
[2019-04-10] MEDS ORDERED: KETAMINE HCL INJ 50 MG/ML 10 ML VIAL ONE ×2 (14:20→14:21)
[2019-04-10] MEDS ORDERED: TOBRAMYCIN SULFATE 1,200 MG VIAL ONE ×2 (14:22→14:27)
[2019-04-10] MEDS ORDERED: PHENYLEPHRINE 100MCG/ML 5ML SYR ONE ×2 (15:27→16:10)
[2019-04-10] MEDS ORDERED: POVIDONE-IODINE OP SOLN 30 ML BTL ONE (15:33)
[2019-04-10] MEDS ORDERED: TOBRAMYCIN SULF 40 MG/ML 2 ML VIAL ONE (16:11)
[2019-04-10] MEDS ORDERED: NALOXONE HCL 0.4 MG/1 ML VIAL/CARP IV PRN (16:56)
[2019-04-10] MEDS ORDERED: HYDROmorphone INJ 1 MG/ML SYRINGE IV PRN (16:56)
[2019-04-10] MEDS ORDERED: FLUMAZENIL 0.1 MG/1 ML 10 ML VIAL IV PRN (16:56)
[2019-04-10] MEDS ORDERED: LABETALOL HCL IV 5 MG/ML 20ML IV PRN (16:56)
[2019-04-10] MEDS ORDERED: ATROPINE SULFATE 0.1 MG/ML 10ML SYR IV PRN (16:56)
[2019-04-10] MEDS ORDERED: ONDANSETRON INJ 2 MG/ML 2 ML VIAL IV PRN (16:56)
[2019-04-10] MEDS ORDERED: ePHEDrine sulfate 50 MG/ML AMP IV PRN (16:56)
[2019-04-10] MEDS ORDERED: PROMETHAZINE HCL 12.5 MG in SODIUM CHLORIDE 0.9% 50 ML IV PRN (16:56)
[2019-04-10] MEDS ORDERED: GLYCOPYRROLATE 0.2 MG/ML VIAL ONE (17:03)
[2019-04-10] MEDS ORDERED: NEOSTIGMINE METHYLSULFATE 5 MG/5 ML SYR ONE (17:03)
--- NOTE | 2019-04-10 17:25 | Post Operative Brief Note ---
Immediate Post Op Note v1 Date of Surgery April 10, 2019 Pre & Post Diagnosis Operation Date: 04/10/19 13:00 Pre-Op Diagnosis: Infected Left Reversed Total Shoulder Arthroplasty, wound necrosis, status post incision and drainage of hematoma secondary to anticoagulations for atrial fibrillation. Post-Op Diagnosis: Wound infection left shoulder involving skin, subcutaneous and fascial tissue with necrosis skin, subcutaneous tissue and superficial deltoid and pectoralis major muscle without evidence of deep infection. Procedure Operation Date: 04/10/19 13:00 Actual Procedures p Left Shoulder Incision and Drainage; irrigation and debridement of skin, muscle and fat(Left) with placement of antibiotic beads and placement of a wound VAC.- Heath Sosa MD Surgeon Heath Sosa M.D. Sales Development Executive Lion SCHULTZ Estimated Blood Loss 50 Findings Consistent with Post-Op Diagnosis Specimens Multiple cultures and soft tissue and skin for culture Drains Limon Catheter Anesthesia Type General Complications none Disposition Accompanied Patient To Recovery: No Disposition: Recovery Room Overlapping Procedure I was immediately available: during the entire case.
[2019-04-10 18:02] LABS: Hemoglobin 10.3 g/dL (12.0-16.0)
--- NOTE | 2019-04-10 18:09 | Anesthesiology Progress Note ---
Date of Service April 10, 2019 Anesthesia Post Procedure Vital Signs Vital Signs: Temp Pulse Pulse Resp BP Pulse Ox 04/10/19 18:00 61 20 126/82 100 04/10/19 17:50 36.4 C L 60 24 127/60 99 04/10/19 17:40 60 23 131/60 100 04/10/19 17:30 60 22 136/72 100 04/10/19 17:20 36.0 C L 70 19 138/68 100 04/10/19 12:30 36.8 C 60 20 107/54 L 100 04/10/19 07:30 36.9 C 60 16 113/69 100 04/09/19 23:21 37.4 C 60 18 101/58 L 97 04/09/19 21:30 60 104/66 04/09/19 20:46 37.1 C 60 16 104/65 98 04/09/19 20:10 37.3 C 62 16 109/69 99 04/09/19 19:55 37.4 C 61 16 104/58 L 100 04/09/19 19:35 37.7 C H 59 L 18 104/66 98 Transfer of Care Handoff Completed per policy Notes Mental Status: alert / awake / arousable Patient Amnestic to Procedure: Yes Nausea / Vomiting: adequately controlled Pain: adequately controlled Airway Patency, RR, SpO2: stable & adequate BP & HR: stable & adequate Hydration State: stable & adequate Anesthetic Complications: no major complications apparent
[2019-04-10] MEDS: SENNA 8.6 MG TAB PO SCH (21:07)
[2019-04-10] MEDS: MONTELUKAST SODIUM 10 MG TABLET PO SCH (21:09)
[2019-04-10] MEDS: LACTOBACILLUS ACIDOPHILUS (FLORANEX) TAB PO SCH (21:09)
[2019-04-11] MEDS: OXYCODONE HCL IR 5 MG TAB (IMMEDIATE RELEASE) PO PRN (00:27)
--- NOTE | 2019-04-11 00:53 | Operative Report ---
DATE OF OPERATION: 04/08/2019 INDICATION FOR PROCEDURE: The patient is a 78-year-old patient who I recently had performed a reverse total shoulder replacement of her left shoulder. She had postoperative complications with bleeding due to anticoagulants, which she was placed on due to history of atrial fibrillation and medical requirement for anticoagulants. The patient had more than typical bleeding postoperatively resulting in a large hematoma. This required incision and drainage, irrigation and debridement. The patient tolerated that procedure well but it was noted at time of surgery, she had some fracture blisters and had some superficial skin necrosis on the medial aspect of her skin that was medial to the lower aspect of the incision. She was placed on postoperative antibiotics and oral antibiotics and transferred to rehab hospital. However, she developed foul smelling wound, which was not initially reported to us and she came to her followup visit with infected wound with some drainage and skin necrosis. A superficial wound culture obtained in the office of some of the drainage was growing Klebsiella. She was seen by infectious disease. She was originally on vancomycin and placed later on ertapenem IV antibiotics. Her wound necrosis worsened in the short 1 day hospital stay and she was given vitamin K and allowed her INR to be reversed and now she is prepared to proceed with surgical treatment of the infection. She does have cardiac issues including some element of heart failure, has a pacemaker, and medical comorbidities. PREOPERATIVE DIAGNOSES: Left shoulder postoperative infection of the left shoulder wound incision, status post incision and drainage of a large hematoma, which was secondary to anticoagulants, status post index procedure of a left reverse total shoulder replacement with possible infected left shoulder replacement. POSTOPERATIVE DIAGNOSES: Left shoulder wound infection status post incision and drainage; irrigation and debridement of a hematoma, which occurred status post a left reverse total shoulder replacement with necrosis of skin, subcutaneous and superficial muscle with no clear evidence of any communication with the deep joint space and no clear evidence of any infection of the shoulder replacement. PROCEDURE: Left shoulder incision and drainage, irrigation and debridement of wound infection involving skin, subcutaneous and muscle tissue with debridement of infected skin, subcutaneous and muscle tissue with placement of antibiotic beads and application of a wound VAC. SURGEON: Heath Sosa MD CARTON MAKER: Lion Hoyos PA-C. ANESTHESIA: General. ESTIMATED BLOOD LOSS: 50 mL COMPLICATIONS: None. SPECIMENS: Multiple including multiple cultures and soft tissue and skin for culture. OPERATIVE PROCEDURE: The patient was taken to the operating room, anesthetized under general anesthetic. She was placed on a 40-degree beachchair position on an operating room table with a towel on the mid bone of her left scapula. She was translated to left side of the bed. So her shoulder could be manipulated off the bed as necessary. Her head was placed on a foam headrest, and she had protective eyewear placed. She had TEDs and SCDs placed. She had a Limon catheter placed. Left shoulder exam demonstrated lower to the medial side of the incision had a large area of skin necrosis with complete full-thickness skin necrosis. This was about a 3.5 cm in that triangular section where there was complete skin loss and necrotic skin around an area of central eschar with exposed fat and drainage. This communicated with area where she had a large hematoma along the medial bicep area and there was some drainage coming from that area. There was no drainage coming from proximal. The upper incision was healed without any erythema or signs of infection. There was no joint effusion. The left shoulder was then sterilely prepped and draped using Betadine scrub and paint. We obtained skin swab culture just deep to the necrotic skin area. We cultured the deep pocket and some of the lateral deltoid area with swabs. The area of necrotic skin was just excised completely. The necrotic fat was resected. I opened up the upper incision and looked at the deltopectoral repair. All the sutures were intact in the deltopectoral repair. Deltopectoral interval was completely repaired and solid along the entire interval. With range of motion of the shoulder, there was no drainage coming out of the shoulder joint. There were no sinus tracts into the shoulder joint. There was some superficial necrosis of the pectoralis and deltoid muscle, but there was no de-communication into the shoulder joint at all noted. The area of necrotic skin and drainage communicated with this inferior pocket of fluid. I was anterior and medial to the biceps muscle area. This was the area where previously she had a large hematoma that was drained. At this time, we copiously irrigated the wound with antibiotic solution with bacitracin with Pulsavac. Then used a Versajet to debride the subcutaneous tissues, debriding the skin edges were also debrided sharply with scalpel, removing any necrotic edges of the skin. The superficial muscle was debrided with the Versajet and all the subcutaneous tissues. We used a rongeur to debride some of the superficial deltoid and pectoral muscle and areas where the superficial muscle had necrotic devascularized appearance to it back to a bleeding muscle tissue. We took out some of the old sutures. The deltopectoral intervals remained intact through range of motion at this point. I chose not to open this interval in order not to contaminate the joint. At this time, the incision was again copiously irrigated with antibiotic solution and bacitracin another 3 liters. I did some further debridement and then did a Betadine soak for 3 minutes and then irrigated this out with plain saline solution another 3 liters. We made antibiotic beads of calcium sulfate using tobramycin and vancomycin in the beads with the Klebsiella being sensitive to tobramycin. These were placed into the pocket inferiorly and in some of the space along the deltopectoral interval and underlying skin flaps. The skin and subcutaneous tissues were closed with bacteria-resistant Vicryl sutures to close some of the subcutaneous space and then the skin was closed with interrupted 3-0 nylon vertical mattress sutures. This left about a 3.5-cm area of necrotic skin with the underlying muscle exposed. At this time, a wound VAC was placed. We placed Adaptic and white foam to cover the space followed by black foam and the wound VAC suction device. We obtained a good seal with the wound VAC being functional. The patient had estimated blood loss of 50 mL and the patient tolerated the procedure well. MARION Balderas was my assistant hairstylist. He functioned as assistant hairstylist through the entire procedure. He assisted in soft tissue retraction, assisted in arm positioning, assisted in application of the wound VAC, and will participate in postoperative care of the patient. I attest to the content of the Intraoperative Record and any orders documented therein. Any exceptions are noted below. HAI
[2019-04-11] MEDS ORDERED: VANCOMYCIN TROUGH ONE (03:30)
--- NOTE | 2019-04-11 07:51 | Anesthesiology Progress Note ---
Date of Service April 11, 2019 Anesthesia Post Procedure Vital Signs Vital Signs: Temp Pulse Pulse Pulse Resp BP Pulse Ox 04/11/19 07:49 37.2 C 04/11/19 03:04 36.6 C 60 15 134/68 97 04/10/19 22:55 36.7 C 60 15 117/67 100 04/10/19 21:30 36.8 C 60 16 106/65 100 04/10/19 21:05 59 L 114/59 L 04/10/19 20:33 36.8 C 60 16 121/72 100 04/10/19 19:28 37 C 61 18 119/68 100 04/10/19 18:54 36.4 C L 60 18 112/66 100 04/10/19 18:25 36.4 C L 63 18 106/70 100 04/10/19 18:00 61 20 126/82 100 04/10/19 17:50 36.4 C L 60 24 127/60 99 04/10/19 17:40 60 23 131/60 100 04/10/19 17:30 60 22 136/72 100 04/10/19 17:20 36.0 C L 70 19 138/68 100 04/10/19 12:30 36.8 C 60 20 107/54 L 100 Pain Intensity Left Shoulder: Pain Intensity: 4 Notes Mental Status: alert / awake / arousable and participated in evaluation Nausea / Vomiting: adequately controlled Pain: adequately controlled Airway Patency, RR, SpO2: stable & adequate BP & HR: stable & adequate Hydration State: stable & adequate
[2019-04-11 08:20] LABS: Creatinine Clr Calc Pharmacy 40.6 ml/min
[2019-04-11 08:29] LABS: BUN Creatinine Ratio 14.3 (10-20); Calcium 8.5 mg/dl (8.5-10.1); Creatinine Clr Calc Pharmacy 41.7 ml/min; Est GFR (African American) 52.6; Est GFR (Non-African American) 45.4; Potassium 3.8 mmol/L (3.5-5.1)
--- NOTE | 2019-04-11 08:38 | Orthopedic Progress Note ---
Date of Service April 11, 2019 Assessment & Plan (1) Status post reverse total arthroplasty of left shoulder: POD #1, Left shoulder I&D skin, fat and subcutaneous muscle, placement of antibiotic beads, application wound vac. Sling at all times, may straighten elbow for stiffness only. As per ID on Ertapenem As per medicine Wound Care Nurse on board for wound vac care. Disposition unknown. Await intra op final cultures. Subjective POD #1, doing well, comfortable, denies sob, cp, n/v. Pain controlled well. Physical Exam Physical Exam: Left shoulder wound vac in place, suctioning well, no erythema, fingers mobile, sling in tact. A&Ox3. Results & Data Vital Signs (Past 12 Hours) Vital Signs Temp Pulse Pulse Resp BP BP Pulse Ox 04/11/19 07:49 37.2 C 04/11/19 07:20 37.8 C H 60 16 110/64 96 04/11/19 03:04 36.6 C 60 15 134/68 97 04/10/19 22:55 36.7 C 60 15 117/67 100 04/10/19 21:30 36.8 C 60 16 106/65 100 04/10/19 21:05 59 L 114/59 L
[2019-04-11] MEDS: FUROSEMIDE 40 MG TAB PO SCH (09:08)
[2019-04-11] MEDS: DOCUSATE SODIUM 100 MG CAP PO SCH ×2 (09:09→21:40)
[2019-04-11] MEDS: METOPROLOL SUCC 25MG EXT REL TAB PO SCH ×2 (09:09→21:41)
[2019-04-11] MEDS: FERROUS GLUCONATE 324 MG TAB PO SCH ×2 (09:10→17:58)
[2019-04-11] MEDS: MULTIVITAMIN TAB PO SCH (09:10)
[2019-04-11] MEDS: FOLIC ACID 1 MG TAB PO SCH (09:10)
[2019-04-11] MEDS: LIDOCAINE 5% 1 PATCH TD SCH (09:11)
[2019-04-11] MEDS: ERTAPENEM SODIUM 1,000 MG in SODIUM CHLORIDE 0.9% 50 ML IV SCH (10:35)
--- NOTE | 2019-04-11 11:31 | Hospitalist Progress Note ---
Date of Service April 11, 2019 Assessment & Plan (1) Postoperative wound infection: Post TSA 03/20 with subsequent hematoma requiring 4 units PRBCs. Patient now with apparent infection of surgical site - ID on board - placed patient on ertapenem for cultures growing ESBL Klebsiella - will get blood cultures to prepare for PICC placement - pain control per primary, patient is comfortable at present (2) Paroxysmal atrial fibrillation: On Coumadin - reversed to INR of 1.5 for surgery today. Restart Coumadin when ok with surgery. Would not recommend bridging given previous hematoma. It will likely take a while for her to become therapeutic again give the amount of vitamin K required to reverse her. (3) Chronic congestive heart failure: Acute on chronic diastolic CHF treated with IV Lasix Lower extremity edema improved. BNP was 9,328 on 04/09 and chest Xray showed congestive failure/fluid overload. Diuresed with IV Lasix preop Resume po furosemide (4) Sarcoidosis: (5) CAD (coronary artery disease): Resume ASA when ok with surgery, continue metoprolol, does not appear to be on a statin (6) Hypertension: continue metoprolol Subjective Ms. Hendrix has no complaints. She is not in pain. Her lower extremity edema has improved. Review of Systems Review of Systems: All systems reviewed & are unremarkable except as noted in HPI & below Physical Exam Physical Exam: General: no distress Eyes: normal inspection, PERLL Respiratory: chest non tender, crackles bilateral lungs, no respiratory distress, no accessory muscle use Cardiac: regular rate and rhythm, no rub or gallop, no murmur,trace pitting edema lower extremities GI/: active bowel sounds, no abd pain or tenderness, soft, non distended Extremities: normal range of motion, normal strength, non tender Neuro/Psych: alert and oriented x 3, normal mood and affect Skin: normal color, dry Results & Data Vital Signs (Past 12 Hours) Vital Signs Temp Pulse Pulse Resp BP BP Pulse Ox 04/11/19 10:52 37.3 C 04/11/19 07:49 37.2 C 04/11/19 07:20 37.8 C H 60 16 110/64 96 04/11/19 03:04 36.6 C 60 15 134/68 97
--- NOTE | 2019-04-11 16:15 | Infectious Disease Progress Nt ---
Date of Service April 11, 2019 Assessment & Plan (1) Postoperative wound infection: Left shoulder infection following arthroplasty subsequent hematoma, with cultures growing ESBL Klebsiella. Patient to continue on ertapenem. Will need prolonged 4-6 weeks Rx. For PICC. (2) Disease due to gram-negative bacteria: Subjective POD #1, doing well, comfortable, denies sob, cp, n/v. Pain controlled well. Review of Systems Review of Systems: All systems reviewed & are unremarkable except as noted in HPI & below Physical Exam Constitutional: WD/WN, vitals as above comfortable; no acute distress Eyes: PERRL, conjunctivae normal, anicteric sclerae ENMT: external ear and nose normal, oropharynx normal Neck: trachea midline, no thyromegaly neck nontender Respiratory: normal respiratory effort, lungs clear to auscultation normal percussion; no respiratory distress Cardiovascular: Rate/Rhythm: regular rate and regular rhythm Heart Sounds: normal S1 and normal S2; no gallop, no murmur and no cardiac rub Gastrointestinal (Abdomen): normal bowel sounds, soft, nontender, no hepatosplenomegaly Musculoskeletal: no cyanosis or clubbing, extremities motor strength 5/5 Skin: no rashes, warm and dry no lesions Neurologic: moves all extremities and awake; no focal motor deficits Motor/Sensory: no sensory deficit Psychiatric: A+Ox3, euthymic affect Lymphatic: no cervical or axillary lymphadenopathy no inguinal lymphadenopathy Results & Data Vital Signs (Past 12 Hours) Vital Signs Temp Pulse Pulse Resp BP BP Pulse Ox 04/11/19 15:37 37.4 C 60 16 114/71 96 04/11/19 11:55 37.4 C 60 18 123/64 96 04/11/19 10:52 37.3 C 04/11/19 07:49 37.2 C 04/11/19 07:20 37.8 C H 60 16 110/64 96 Laboratory Results Laboratory Results - last 48 hr 04/08/19 04/09/19 04/09/19 16:55 17:02 22:53 WBC RBC Hgb Hct MCV MCH MCHC RDW Std Deviation RDW Coeff of Demetrio Plt Count MPV PT 23.8 H 17.8 H INR 2.5 H 1.8 H Sodium Potassium Chloride Carbon Dioxide Anion Gap BUN Creatinine Est Cr Clr Drug Dosing Est GFR ( Amer) Est GFR (Non-Af Amer) BUN/Creatinine Ratio Glucose POC Glucose Calcium Blood Type A Positive Antibody Screen NEGATIVE Crossmatch See Detail 04/10/19 04/10/19 04/10/19 07:18 07:18 07:18 WBC 7.43 RBC 3.00 L Hgb 9.6 L Hct 29.9 L MCV 99.7 MCH 32.0 MCHC 32.1 RDW Std Deviation 67.6 H RDW Coeff of Demetrio 18.9 H Plt Count 296 MPV 9.9 PT 15.1 H INR 1.5 H Sodium 136 Potassium 3.7 Chloride 100 Carbon Dioxide 28 Anion Gap 8.0 BUN 18 Creatinine 0.86 Est Cr Clr Drug Dosing 56.2 Est GFR ( Amer) 75.5 Est GFR (Non-Af Amer) 65.2 BUN/Creatinine Ratio 20.3 H Glucose 92 POC Glucose Calcium 8.5 Blood Type Antibody Screen Crossmatch 04/10/19 04/10/19 04/11/19 17:24 17:40 07:35 WBC RBC Hgb 10.3 L Hct 32.0 L MCV MCH MCHC RDW Std Deviation RDW Coeff of Demetrio Plt Count MPV PT INR Sodium Potassium Chloride Carbon Dioxide Anion Gap BUN Creatinine 1.19 D Est Cr Clr Drug Dosing 40.6 Est GFR ( Amer) 51.0 Est GFR (Non-Af Amer) 44.0 BUN/Creatinine Ratio Glucose POC Glucose 83 Calcium Blood Type Antibody Screen Crossmatch 04/11/19 07:37 WBC RBC Hgb Hct MCV MCH MCHC RDW Std Deviation RDW Coeff of Demetrio Plt Count MPV PT INR Sodium 138 Potassium 3.8 Chloride 100 Carbon Dioxide 29 Anion Gap 9.0 BUN 17 Creatinine 1.16 Est Cr Clr Drug Dosing 41.7 Est GFR ( Amer) 52.6 Est GFR (Non-Af Amer) 45.4 BUN/Creatinine Ratio 14.3 Glucose 85 POC Glucose Calcium 8.5 Blood Type Antibody Screen Crossmatch Diagnostic Findings Microbiology 04/10/19 15:10 Shoulder,Left Gram Stain - Final 04/10/19 15:10 Shoulder,Left Aerobic and Anaerobic Culture - Preliminary Gram negative bacilli Gram negative bacilli#2 04/10/19 15:06 Shoulder,Left Gram Stain - Final 04/10/19 15:06 Shoulder,Left Aerobic and Anaerobic Culture - Preliminary Gram negative bacilli Gram negative bacilli#2 04/10/19 15:03 Shoulder,Left Gram Stain - Final 04/10/19 15:03 Shoulder,Left Aerobic and Anaerobic Culture - Preliminary Gram negative bacilli Gram negative bacilli#2 04/08/19 14:30 Shoulder,Left Gram Stain - Final 04/08/19 14:30 Shoulder,Left Wound Culture - Final Klebsiella pneumoniae ESBL 04/10/19 15:03 Shoulder,Left Gram Stain - Final 04/10/19 15:03 Shoulder,Left Aerobic and Anaerobic Culture - Preliminary Gram negative bacilli Gram negative bacilli#2
[2019-04-11] MEDS: SENNA 8.6 MG TAB PO SCH (21:40)
[2019-04-11] MEDS: LACTOBACILLUS ACIDOPHILUS (FLORANEX) TAB PO SCH (21:40)
[2019-04-11] MEDS: MONTELUKAST SODIUM 10 MG TABLET PO SCH (21:40)
[2019-04-12 08:28] LABS: Basophils # (auto) 0.03 K/uL (0-0.2); Basophils % (auto) 0.4 %; Eosinophils # (auto) 0.21 K/uL (0-0.5); Eosinophils % (auto) 2.7 %; Hematocrit (blood only) 30.1 % (37-47); Hemoglobin 9.6 g/dL (12.0-16.0); Immature Granulocytes # (auto) 0.02 K/uL (0.00-0.02); Immature Granulocytes % (auto) 0.3 %; Lymphocytes # (auto) 0.95 K/uL (1.2-3.4); Lymphocytes % (auto) 12.1 %; Mean Corpuscular Hgb Conc 31.9 g/dL (32-36); Mean Corpuscular Volume 100.7 fL (80-100); Mean Platelet Volume 9.7 fL (7.4-10.4); Monocytes # (auto) 1.87 K/uL (0.11-0.59); Monocytes % (auto) 23.7 %; Neutrophils % (auto) 60.8 %; Platelet Count 290 K/uL (130-400); RDW Coefficient of Variation 18.3 % (11.5-14.5); RDW Standard Deviation 67.6 fL (36.4-46.3); Red Blood Count 2.99 M/uL (4.2-5.4); White Blood Count 7.88 K/uL (4.8-10.8)
[2019-04-12 08:38] LABS: INR 1.4 (0.9-1.1)
[2019-04-12 08:48] LABS: BUN Creatinine Ratio 16.9 (10-20); Calcium 8.7 mg/dl (8.5-10.1); Creatinine Clr Calc Pharmacy 43.2 ml/min; Est GFR (African American) 54.9; Est GFR (Non-African American) 47.3
--- NOTE | 2019-04-12 09:06 | Orthopedic Progress Note ---
Date of Service April 12, 2019 Assessment & Plan (1) Status post reverse total arthroplasty of left shoulder: POD #2, Left shoulder I&D skin, fat and subcutaneous muscle, placement of antibiotic beads, application wound vac. Sling at all times, may straighten elbow for stiffness only. As per ID on Ertapenem will need 4-6 weeks. Will plan for PICC As per medicine Wound Care Nurse on board for wound vac care. Wound vac for change tomorrow Await intra op final cultures. Preop cultures grew ESBL Klebsiella. Intra op cultures growing gram negative bacilli no sensitivities to follow, Proteus Mirabilis barroso sensitive Subjective POD #2, doing well, comfortable, denies sob, cp, n/v. Pain controlled well. Physical Exam Physical Exam: Wound vac in place and suctioning properly. Fingers mobile. Good emblem drawer in strength. Sensation and n/v status intact. Results & Data Vital Signs (Past 12 Hours) Vital Signs Temp Pulse Pulse Pulse Resp BP Pulse Ox 04/12/19 07:55 36.4 C L 62 20 98/57 L 95 04/11/19 23:16 37.3 C 60 14 101/58 L 97 04/11/19 21:28 37.3 C 62 109/63
[2019-04-12 09:36] LABS: Potassium 4.1 mmol/L (3.5-5.1)
[2019-04-12] MEDS: METOPROLOL SUCC 25MG EXT REL TAB PO SCH ×2 (09:44→20:31)
[2019-04-12] MEDS: FOLIC ACID 1 MG TAB PO SCH (09:44)
[2019-04-12] MEDS: DOCUSATE SODIUM 100 MG CAP PO SCH ×3 (09:44→20:35)
[2019-04-12] MEDS: LIDOCAINE 5% 1 PATCH TD SCH (09:44)
[2019-04-12] MEDS: MULTIVITAMIN TAB PO SCH (09:44)
[2019-04-12] MEDS: FERROUS GLUCONATE 324 MG TAB PO SCH ×2 (09:45→17:55)
[2019-04-12] MEDS: FUROSEMIDE 40 MG TAB PO SCH (09:45)
[2019-04-12] MEDS: ERTAPENEM SODIUM 1,000 MG in SODIUM CHLORIDE 0.9% 50 ML IV SCH (10:13)
--- NOTE | 2019-04-12 16:10 | Hospitalist Progress Note ---
Date of Service April 12, 2019 Assessment & Plan (1) Postoperative wound infection: Post TSA 03/20 with subsequent hematoma requiring 4 units PRBCs. Patient now with apparent infection of surgical site - ID on board - placed patient on ertapenem for cultures growing ESBL Klebsiella - blood cultures obtained for PICC placement - pain control per primary (2) Paroxysmal atrial fibrillation: On Coumadin - reversed to INR of 1.5 for surgery. - resumed Warfarin 04/12 with 5 mg -Would not recommend bridging given previous hematoma. It will likely take a while for her to become therapeutic again give the amount of vitamin K required to reverse her. (3) Chronic congestive heart failure: Acute on chronic diastolic CHF treated with IV Lasix Lower extremity edema improved. BNP was 9,328 on 04/09 and chest Xray showed congestive failure/fluid overload. Diuresed with IV Lasix preop Patient has had low UO but kidney function is stable, will hold lasix for tomorrow morning. Encouraged patients to drink plenty of fluid. Will hold off on IVF for now. (4) Sarcoidosis: (5) CAD (coronary artery disease): Resume ASA when ok with surgery, continue metoprolol, does not appear to be on a statin (6) Hypertension: continue metoprolol Subjective Ms. Hendrix is feeling tired today. She does have some tingling and numbness in her left 4th and 5th finger. Review of Systems Review of Systems: All systems reviewed & are unremarkable except as noted in HPI & below Physical Exam Physical Exam: General: no distress Eyes: normal inspection, PERLL Respiratory: chest non tender, clear to auscultation, normal breath sounds, no respiratory distress, no accessory muscle use Cardiac: regular rate and rhythm, no rub or gallop, no murmur, no edema, no jvd GI/: active bowel sounds, no abd pain or tenderness, soft, non distended Extremities: normal range of motion, normal strength, non tender Neuro/Psych: alert and oriented x 3, normal mood and affect Skin: normal color, dry Results & Data Vital Signs (Past 12 Hours) Vital Signs Temp Pulse Pulse Resp BP Pulse Ox 04/12/19 15:40 36.3 C L 60 20 99/58 L 98 04/12/19 12:30 36.8 C 60 22 116/73 97 04/12/19 07:55 36.4 C L 62 20 98/57 L 95
[2019-04-12] MEDS: WARFARIN SOD 5 MG TAB PO SCH (16:13)
[2019-04-12] MEDS: LACTOBACILLUS ACIDOPHILUS (FLORANEX) TAB PO SCH (20:29)
[2019-04-12] MEDS: SENNA 8.6 MG TAB PO SCH ×2 (20:30→20:35)
[2019-04-12] MEDS: MONTELUKAST SODIUM 10 MG TABLET PO SCH (20:30)
[2019-04-13] MEDS: OXYCODONE HCL IR 5 MG TAB (IMMEDIATE RELEASE) PO PRN ×2 (03:32→07:54)
[2019-04-13 06:07] LABS: Basophils # (auto) 0.02 K/uL (0-0.2); Basophils % (auto) 0.3 %; Eosinophils # (auto) 0.31 K/uL (0-0.5); Eosinophils % (auto) 4.1 %; Hematocrit (blood only) 28.4 % (37-47); Hemoglobin 9.3 g/dL (12.0-16.0); Immature Granulocytes # (auto) 0.03 K/uL (0.00-0.02); Immature Granulocytes % (auto) 0.4 %; Lymphocytes # (auto) 0.88 K/uL (1.2-3.4); Lymphocytes % (auto) 11.5 %; Mean Corpuscular Hgb Conc 32.7 g/dL (32-36); Mean Platelet Volume 9.6 fL (7.4-10.4); Monocytes # (auto) 1.73 K/uL (0.11-0.59); Monocytes % (auto) 22.6 %; Neutrophils # (auto) 4.68 K/uL (1.4-6.5); Neutrophils % (auto) 61.1 %; Platelet Count 313 K/uL (130-400); RDW Coefficient of Variation 18.2 % (11.5-14.5); RDW Standard Deviation 66.1 fL (36.4-46.3); Red Blood Count 2.84 M/uL (4.2-5.4); White Blood Count 7.65 K/uL (4.8-10.8)
[2019-04-13 06:35] LABS: BUN Creatinine Ratio 20.4 (10-20); Calcium 8.6 mg/dl (8.5-10.1); Creatinine Clr Calc Pharmacy 50.4 ml/min; Est GFR (African American) 66.1; Potassium 3.7 mmol/L (3.5-5.1)
[2019-04-13 06:45] LABS: INR 1.5 (0.9-1.1); Prothrombin Time 14.6 Seconds (9.0-12.0)
--- NOTE | 2019-04-13 07:51 | Orthopedic Progress Note ---
Date of Service April 13, 2019 Assessment & Plan (1) Status post reverse total arthroplasty of left shoulder: POD #3, Left shoulder I&D skin, fat and subcutaneous muscle, placement of antibiotic beads, application wound vac. Sling at all times, may straighten elbow for stiffness only. As per ID on Ertapenem will need 4-6 weeks. Will plan for PICC As per medicine Wound Care Nurse on board for wound vac care. Wound vac for change today Await intra op final cultures. Preop cultures grew ESBL Klebsiella. Intra op cultures growing ESBL Klebisella and Proteus Mirabilis barroso sensitive Subjective POD #3, asleep on arrival easily arousable, comfortable, denies sob, cp, n/v. Pain controlled well. Numbness/tingling in fingers improving. Review of Systems Review of Systems: All systems reviewed & are unremarkable except as noted in HPI & below Physical Exam Physical Exam: Sling in place. Fingers are mobile, sensation and n/v status intact. Wound vac in place and suctioning appropriately Results & Data Vital Signs (Past 12 Hours) Vital Signs Temp Pulse Resp BP Pulse Ox 04/12/19 23:45 37 C 60 18 109/60 98 04/12/19 20:28 60 97/61 L Laboratory Results Lab Results 04/08/19 04/08/19 04/08/19 Range/Units 16:55 16:55 16:55 WBC 9.52 (4.8-10.8) K/uL RBC 3.45 L (4.2-5.4) M/uL Hgb 11.0 L (12.0-16.0) g/dL Hct 34.5 L (37-47) % MCV 100.0 (80-100) fL MCH 31.9 (25-34) pg MCHC 31.9 L (32-36) g/dL RDW Std Deviation 68.5 H (36.4-46.3) fL RDW Coeff of Demetrio 19.0 H (11.5-14.5) % Plt Count 412 H (130-400) K/uL MPV 10.2 (7.4-10.4) fL Immature Gran % (Auto) 0.2 % Neut % (Auto) 69.1 % Lymph % (Auto) 10.2 % Shelby % (Auto) 18.5 % Eos % (Auto) 1.8 % Baso % (Auto) 0.2 % Immature Gran # (Auto) 0.02 (0.00-0.02) K/uL Neut # (Auto) 6.58 H (1.4-6.5) K/uL Lymph # (Auto) 0.97 L (1.2-3.4) K/uL Shelby # (Auto) 1.76 H (0.11-0.59) K/uL Eos # (Auto) 0.17 (0-0.5) K/uL Baso # (Auto) 0.02 (0-0.2) K/uL ESR (0-21) mm/hr PT 32.8 H (9.0-12.0) Seconds INR 3.5 H (0.9-1.1) Sodium 130 L (136-145) mmol/L Potassium 4.2 (3.5-5.1) mmol/L Chloride 94 L (98-107) mmol/L Carbon Dioxide 31 (21-32) mmol/L Anion Gap 5.0 (3-11) BUN 21 H (7-18) mg/dl Creatinine 1.14 (0.6-1.2) mg/dl Est Cr Clr Drug Dosing Not Reportable Est GFR ( Amer) 53.7 Est GFR (Non-Af Amer) 46.3 BUN/Creatinine Ratio 18.5 (10-20) Glucose 128 H (70-99) mg/dl POC Glucose (70-99) Calcium 8.8 (8.5-10.1) mg/dl NT-Pro-B Natriuret Pep (0-1800) pg/ml Specimen Hemolysis Urine Color Urine Appearance (Clear) Urine pH (4.5-7.5) Ur Specific [place] (1.000-1.030) Urine Protein (Negative) Urine Glucose (UA) (Negative) Urine Ketones (Negative) Urine Blood (Negative) Urine Nitrite (Negative) Urine Bilirubin (Negative) Urine Urobilinogen (Negative) Ur Leukocyte Esterase (Negative) Urine WBC (Auto) (0-5) /hpf Urine RBC (Auto) (0-4) /hpf U Hyaline Cast (Auto) (0-5) /lpf U Epithel Cells (Auto) (0-5) /lpf Urine Bacteria (Auto) (Negative) Blood Type Antibody Screen Crossmatch 04/08/19 04/08/19 04/08/19 Range/Units 16:55 17:38 20:26 WBC (4.8-10.8) K/uL RBC (4.2-5.4) M/uL Hgb (12.0-16.0) g/dL Hct (37-47) % MCV (80-100) fL MCH (25-34) pg MCHC (32-36) g/dL RDW Std Deviation (36.4-46.3) fL RDW Coeff of Demetrio (11.5-14.5) % Plt Count (130-400) K/uL MPV (7.4-10.4) fL Immature Gran % (Auto) % Neut % (Auto) % Lymph % (Auto) % Shelby % (Auto) % Eos % (Auto) % Baso % (Auto) % Immature Gran # (Auto) (0.00-0.02) K/uL Neut # (Auto) (1.4-6.5) K/uL Lymph # (Auto) (1.2-3.4) K/uL Shelby # (Auto) (0.11-0.59) K/uL Eos # (Auto) (0-0.5) K/uL Baso # (Auto) (0-0.2) K/uL ESR (0-21) mm/hr PT (9.0-12.0) Seconds INR (0.9-1.1) Sodium (136-145) mmol/L Potassium (3.5-5.1) mmol/L Chloride (98-107) mmol/L Carbon Dioxide (21-32) mmol/L Anion Gap (3-11) BUN (7-18) mg/dl Creatinine (0.6-1.2) mg/dl Est Cr Clr Drug Dosing Est GFR ( Amer) Est GFR (Non-Af Amer) BUN/Creatinine Ratio (10-20) Glucose (70-99) mg/dl POC Glucose 118 H 142 H (70-99) Calcium (8.5-10.1) mg/dl NT-Pro-B Natriuret Pep (0-1800) pg/ml Specimen Hemolysis Urine Color Urine Appearance (Clear) Urine pH (4.5-7.5) Ur Specific [place] (1.000-1.030) Urine Protein (Negative) Urine Glucose (UA) (Negative) Urine Ketones (Negative) Urine Blood (Negative) Urine Nitrite (Negative) Urine Bilirubin (Negative) Urine Urobilinogen (Negative) Ur Leukocyte Esterase (Negative) Urine WBC (Auto) (0-5) /hpf Urine RBC (Auto) (0-4) /hpf U Hyaline Cast (Auto) (0-5) /lpf U Epithel Cells (Auto) (0-5) /lpf Urine Bacteria (Auto) (Negative) Blood Type A Positive Antibody Screen NEGATIVE Crossmatch See Detail 04/09/19 04/09/19 04/09/19 Range/Units 05:49 07:35 07:45 WBC (4.8-10.8) K/uL RBC (4.2-5.4) M/uL Hgb (12.0-16.0) g/dL Hct (37-47) % MCV (80-100) fL MCH (25-34) pg MCHC (32-36) g/dL RDW Std Deviation (36.4-46.3) fL RDW Coeff of Demetrio (11.5-14.5) % Plt Count (130-400) K/uL MPV (7.4-10.4) fL Immature Gran % (Auto) % Neut % (Auto) % Lymph % (Auto) % Shelby % (Auto) % Eos % (Auto) % Baso % (Auto) % Immature Gran # (Auto) (0.00-0.02) K/uL Neut # (Auto) (1.4-6.5) K/uL Lymph # (Auto) (1.2-3.4) K/uL Shelby # (Auto) (0.11-0.59) K/uL Eos # (Auto) (0-0.5) K/uL Baso # (Auto) (0-0.2) K/uL ESR (0-21) mm/hr PT 28.4 H (9.0-12.0) Seconds INR 3.0 H (0.9-1.1) Sodium (136-145) mmol/L Potassium (3.5-5.1) mmol/L Chloride (98-107) mmol/L Carbon Dioxide (21-32) mmol/L Anion Gap (3-11) BUN (7-18) mg/dl Creatinine 0.97 (0.6-1.2) mg/dl Est Cr Clr Drug Dosing 49.8 Est GFR ( Amer) 65.3 Est GFR (Non-Af Amer) 56.3 BUN/Creatinine Ratio (10-20) Glucose (70-99) mg/dl POC Glucose 110 H (70-99) Calcium (8.5-10.1) mg/dl NT-Pro-B Natriuret Pep (0-1800) pg/ml Specimen Hemolysis Urine Color Urine Appearance (Clear) Urine pH (4.5-7.5) Ur Specific [place] (1.000-1.030) Urine Protein (Negative) Urine Glucose (UA) (Negative) Urine Ketones (Negative) Urine Blood (Negative) Urine Nitrite (Negative) Urine Bilirubin (Negative) Urine Urobilinogen (Negative) Ur Leukocyte Esterase (Negative) Urine WBC (Auto) (0-5) /hpf Urine RBC (Auto) (0-4) /hpf U Hyaline Cast (Auto) (0-5) /lpf U Epithel Cells (Auto) (0-5) /lpf Urine Bacteria (Auto) (Negative) Blood Type Antibody Screen Crossmatch 04/09/19 04/09/19 04/09/19 Range/Units 07:45 07:45 12:11 WBC (4.8-10.8) K/uL RBC (4.2-5.4) M/uL Hgb (12.0-16.0) g/dL Hct (37-47) % MCV (80-100) fL MCH (25-34) pg MCHC (32-36) g/dL RDW Std Deviation (36.4-46.3) fL RDW Coeff of Demetrio (11.5-14.5) % Plt Count (130-400) K/uL MPV (7.4-10.4) fL Immature Gran % (Auto) % Neut % (Auto) % Lymph % (Auto) % Shelby % (Auto) % Eos % (Auto) % Baso % (Auto) % Immature Gran # (Auto) (0.00-0.02) K/uL Neut # (Auto) (1.4-6.5) K/uL Lymph # (Auto) (1.2-3.4) K/uL Shelby # (Auto) (0.11-0.59) K/uL Eos # (Auto) (0-0.5) K/uL Baso # (Auto) (0-0.2) K/uL ESR 53 H (0-21) mm/hr PT (9.0-12.0) Seconds INR (0.9-1.1) Sodium (136-145) mmol/L Potassium (3.5-5.1) mmol/L Chloride (98-107) mmol/L Carbon Dioxide (21-32) mmol/L Anion Gap (3-11) BUN (7-18) mg/dl Creatinine (0.6-1.2) mg/dl Est Cr Clr Drug Dosing Est GFR ( Amer) Est GFR (Non-Af Amer) BUN/Creatinine Ratio (10-20) Glucose (70-99) mg/dl POC Glucose 116 H (70-99) Calcium (8.5-10.1) mg/dl NT-Pro-B Natriuret Pep 9328 H (0-1800) pg/ml Specimen Hemolysis Urine Color Urine Appearance (Clear) Urine pH (4.5-7.5) Ur Specific [place] (1.000-1.030) Urine Protein (Negative) Urine Glucose (UA) (Negative) Urine Ketones (Negative) Urine Blood (Negative) Urine Nitrite (Negative) Urine Bilirubin (Negative) Urine Urobilinogen (Negative) Ur Leukocyte Esterase (Negative) Urine WBC (Auto) (0-5) /hpf Urine RBC (Auto) (0-4) /hpf U Hyaline Cast (Auto) (0-5) /lpf U Epithel Cells (Auto) (0-5) /lpf Urine Bacteria (Auto) (Negative) Blood Type Antibody Screen Crossmatch 04/09/19 04/09/19 04/09/19 Range/Units 13:45 17:02 22:53 WBC (4.8-10.8) K/uL RBC (4.2-5.4) M/uL Hgb (12.0-16.0) g/dL Hct (37-47) % MCV (80-100) fL MCH (25-34) pg MCHC (32-36) g/dL RDW Std Deviation (36.4-46.3) fL RDW Coeff of Demetrio (11.5-14.5) % Plt Count (130-400) K/uL MPV (7.4-10.4) fL Immature Gran % (Auto) % Neut % (Auto) % Lymph % (Auto) % [place] % (Auto) % Eos % (Auto) % Baso % (Auto) % Immature Gran # (Auto) (0.00-0.02) K/uL Neut # (Auto) (1.4-6.5) K/uL Lymph # (Auto) (1.2-3.4) K/uL [place] # (Auto) (0.11-0.59) K/uL Eos # (Auto) (0-0.5) K/uL Baso # (Auto) (0-0.2) K/uL ESR (0-21) mm/hr PT 23.8 H 17.8 H (9.0-12.0) Seconds INR 2.5 H 1.8 H (0.9-1.1) Sodium (136-145) mmol/L Potassium (3.5-5.1) mmol/L Chloride (98-107) mmol/L Carbon Dioxide (21-32) mmol/L Anion Gap (3-11) BUN (7-18) mg/dl Creatinine (0.6-1.2) mg/dl Est Cr Clr Drug Dosing Est GFR ( Amer) Est GFR (Non-Af Amer) BUN/Creatinine Ratio (10-20) Glucose (70-99) mg/dl POC Glucose (70-99) Calcium (8.5-10.1) mg/dl NT-Pro-B Natriuret Pep (0-1800) pg/ml Specimen Hemolysis Urine Color Dark Yellow Urine Appearance Clear (Clear) Urine pH 5.0 (4.5-7.5) Ur Specific [place] 1.016 (1.000-1.030) Urine Protein Negative (Negative) Urine Glucose (UA) Negative (Negative) Urine Ketones Negative (Negative) Urine Blood 2+ H (Negative) Urine Nitrite Negative (Negative) Urine Bilirubin Negative (Negative) Urine Urobilinogen Negative (Negative) Ur Leukocyte Esterase 2+ H (Negative) Urine WBC (Auto) 5-10 H (0-5) /hpf Urine RBC (Auto) 10-30 H (0-4) /hpf U Hyaline Cast (Auto) 1-5 (0-5) /lpf U Epithel Cells (Auto) >30 H (0-5) /lpf Urine Bacteria (Auto) Negative (Negative) Blood Type Antibody Screen Crossmatch 04/10/19 04/10/19 04/10/19 Range/Units 07:18 07:18 07:18 WBC 7.43 (4.8-10.8) K/uL RBC 3.00 L (4.2-5.4) M/uL Hgb 9.6 L (12.0-16.0) g/dL Hct 29.9 L (37-47) % MCV 99.7 (80-100) fL MCH 32.0 (25-34) pg MCHC 32.1 (32-36) g/dL RDW Std Deviation 67.6 H (36.4-46.3) fL RDW Coeff of Demetrio 18.9 H (11.5-14.5) % Plt Count 296 (130-400) K/uL MPV 9.9 (7.4-10.4) fL Immature Gran % (Auto) % Neut % (Auto) % Lymph % (Auto) % [place] % (Auto) % Eos % (Auto) % Baso % (Auto) % Immature Gran # (Auto) (0.00-0.02) K/uL Neut # (Auto) (1.4-6.5) K/uL Lymph # (Auto) (1.2-3.4) K/uL [place] # (Auto) (0.11-0.59) K/uL Eos # (Auto) (0-0.5) K/uL Baso # (Auto) (0-0.2) K/uL ESR (0-21) mm/hr PT 15.1 H (9.0-12.0) Seconds INR 1.5 H (0.9-1.1) Sodium 136 (136-145) mmol/L Potassium 3.7 (3.5-5.1) mmol/L Chloride 100 (98-107) mmol/L Carbon Dioxide 28 (21-32) mmol/L Anion Gap 8.0 (3-11) BUN 18 (7-18) mg/dl Creatinine 0.86 (0.6-1.2) mg/dl Est Cr Clr Drug Dosing 56.2 Est GFR ( Amer) 75.5 Est GFR (Non-Af Amer) 65.2 BUN/Creatinine Ratio 20.3 H (10-20) Glucose 92 (70-99) mg/dl POC Glucose (70-99) Calcium 8.5 (8.5-10.1) mg/dl NT-Pro-B Natriuret Pep (0-1800) pg/ml Specimen Hemolysis Urine Color Urine Appearance (Clear) Urine pH (4.5-7.5) Ur Specific [place] (1.000-1.030) Urine Protein (Negative) Urine Glucose (UA) (Negative) Urine Ketones (Negative) Urine Blood (Negative) Urine Nitrite (Negative) Urine Bilirubin (Negative) Urine Urobilinogen (Negative) Ur Leukocyte Esterase (Negative) Urine WBC (Auto) (0-5) /hpf Urine RBC (Auto) (0-4) /hpf U Hyaline Cast (Auto) (0-5) /lpf U Epithel Cells (Auto) (0-5) /lpf Urine Bacteria (Auto) (Negative) Blood Type Antibody Screen Crossmatch 04/10/19 04/10/19 04/11/19 Range/Units 17:24 17:40 07:35 WBC (4.8-10.8) K/uL RBC (4.2-5.4) M/uL Hgb 10.3 L (12.0-16.0) g/dL Hct 32.0 L (37-47) % MCV (80-100) fL MCH (25-34) pg MCHC (32-36) g/dL RDW Std Deviation (36.4-46.3) fL RDW Coeff of Demetrio (11.5-14.5) % Plt Count (130-400) K/uL MPV (7.4-10.4) fL Immature Gran % (Auto) % Neut % (Auto) % Lymph % (Auto) % [place] % (Auto) % Eos % (Auto) % Baso % (Auto) % Immature Gran # (Auto) (0.00-0.02) K/uL Neut # (Auto) (1.4-6.5) K/uL Lymph # (Auto) (1.2-3.4) K/uL [place] # (Auto) (0.11-0.59) K/uL Eos # (Auto) (0-0.5) K/uL Baso # (Auto) (0-0.2) K/uL ESR (0-21) mm/hr PT (9.0-12.0) Seconds INR (0.9-1.1) Sodium (136-145) mmol/L Potassium (3.5-5.1) mmol/L Chloride (98-107) mmol/L Carbon Dioxide (21-32) mmol/L Anion Gap (3-11) BUN (7-18) mg/dl Creatinine 1.19 D (0.6-1.2) mg/dl Est Cr Clr Drug Dosing 40.6 Est GFR ( Amer) 51.0 Est GFR (Non-Af Amer) 44.0 BUN/Creatinine Ratio (10-20) Glucose (70-99) mg/dl POC Glucose 83 (70-99) Calcium (8.5-10.1) mg/dl NT-Pro-B Natriuret Pep (0-1800) pg/ml Specimen Hemolysis Urine Color Urine Appearance (Clear) Urine pH (4.5-7.5) Ur Specific [place] (1.000-1.030) Urine Protein (Negative) Urine Glucose (UA) (Negative) Urine Ketones (Negative) Urine Blood (Negative) Urine Nitrite (Negative) Urine Bilirubin (Negative) Urine Urobilinogen (Negative) Ur Leukocyte Esterase (Negative) Urine WBC (Auto) (0-5) /hpf Urine RBC (Auto) (0-4) /hpf U Hyaline Cast (Auto) (0-5) /lpf U Epithel Cells (Auto) (0-5) /lpf Urine Bacteria (Auto) (Negative) Blood Type Antibody Screen Crossmatch 04/11/19 04/12/19 04/12/19 Range/Units 07:37 08:07 08:07 WBC 7.88 (4.8-10.8) K/uL RBC 2.99 L (4.2-5.4) M/uL Hgb 9.6 L (12.0-16.0) g/dL Hct 30.1 L (37-47) % MCV 100.7 H (80-100) fL MCH 32.1 (25-34) pg MCHC 31.9 L (32-36) g/dL RDW Std Deviation 67.6 H (36.4-46.3) fL RDW Coeff of Demetrio 18.3 H (11.5-14.5) % Plt Count 290 (130-400) K/uL MPV 9.7 (7.4-10.4) fL Immature Gran % (Auto) 0.3 % Neut % (Auto) 60.8 % Lymph % (Auto) 12.1 % [place] % (Auto) 23.7 % Eos % (Auto) 2.7 % Baso % (Auto) 0.4 % Immature Gran # (Auto) 0.02 (0.00-0.02) K/uL Neut # (Auto) 4.80 (1.4-6.5) K/uL Lymph # (Auto) 0.95 L (1.2-3.4) K/uL [place] # (Auto) 1.87 H (0.11-0.59) K/uL Eos # (Auto) 0.21 (0-0.5) K/uL Baso # (Auto) 0.03 (0-0.2) K/uL ESR (0-21) mm/hr PT 14.0 H (9.0-12.0) Seconds INR 1.4 H (0.9-1.1) Sodium 138 (136-145) mmol/L Potassium 3.8 (3.5-5.1) mmol/L Chloride 100 (98-107) mmol/L Carbon Dioxide 29 (21-32) mmol/L Anion Gap 9.0 (3-11) BUN 17 (7-18) mg/dl Creatinine 1.16 (0.6-1.2) mg/dl Est Cr Clr Drug Dosing 41.7 Est GFR ( Amer) 52.6 Est GFR (Non-Af Amer) 45.4 BUN/Creatinine Ratio 14.3 (10-20) Glucose 85 (70-99) mg/dl POC Glucose (70-99) Calcium 8.5 (8.5-10.1) mg/dl NT-Pro-B Natriuret Pep (0-1800) pg/ml Specimen Hemolysis Urine Color Urine Appearance (Clear) Urine pH (4.5-7.5) Ur Specific [place] (1.000-1.030) Urine Protein (Negative) Urine Glucose (UA) (Negative) Urine Ketones (Negative) Urine Blood (Negative) Urine Nitrite (Negative) Urine Bilirubin (Negative) Urine Urobilinogen (Negative) Ur Leukocyte Esterase (Negative) Urine WBC (Auto) (0-5) /hpf Urine RBC (Auto) (0-4) /hpf U Hyaline Cast (Auto) (0-5) /lpf U Epithel Cells (Auto) (0-5) /lpf Urine Bacteria (Auto) (Negative) Blood Type Antibody Screen Crossmatch 04/12/19 04/12/19 04/13/19 Range/Units 08:07 08:59 05:36 WBC 7.65 (4.8-10.8) K/uL RBC 2.84 L (4.2-5.4) M/uL Hgb 9.3 L (12.0-16.0) g/dL Hct 28.4 L (37-47) % MCV 100.0 (80-100) fL MCH 32.7 (25-34) pg MCHC 32.7 (32-36) g/dL RDW Std Deviation 66.1 H (36.4-46.3) fL RDW Coeff of Demetrio 18.2 H (11.5-14.5) % Plt Count 313 (130-400) K/uL MPV 9.6 (7.4-10.4) fL Immature Gran % (Auto) 0.4 % Neut % (Auto) 61.1 % Lymph % (Auto) 11.5 % [place] % (Auto) 22.6 % Eos % (Auto) 4.1 % Baso % (Auto) 0.3 % Immature Gran # (Auto) 0.03 H (0.00-0.02) K/uL Neut # (Auto) 4.68 (1.4-6.5) K/uL Lymph # (Auto) 0.88 L (1.2-3.4) K/uL [place] # (Auto) 1.73 H (0.11-0.59) K/uL Eos # (Auto) 0.31 (0-0.5) K/uL Baso # (Auto) 0.02 (0-0.2) K/uL ESR (0-21) mm/hr PT (9.0-12.0) Seconds INR (0.9-1.1) Sodium 134 L (136-145) mmol/L Potassium 4.1 (3.5-5.1) mmol/L Chloride 97 L (98-107) mmol/L Carbon Dioxide 29 (21-32) mmol/L Anion Gap 7.0 (3-11) BUN 19 H (7-18) mg/dl Creatinine 1.12 (0.6-1.2) mg/dl Est Cr Clr Drug Dosing 43.2 Est GFR ( Amer) 54.9 Est GFR (Non-Af Amer) 47.3 BUN/Creatinine Ratio 16.9 (10-20) Glucose 120 H (70-99) mg/dl POC Glucose (70-99) Calcium 8.7 (8.5-10.1) mg/dl NT-Pro-B Natriuret Pep (0-1800) pg/ml Specimen Hemolysis Urine Color Urine Appearance (Clear) Urine pH (4.5-7.5) Ur Specific [place] (1.000-1.030) Urine Protein (Negative) Urine Glucose (UA) (Negative) Urine Ketones (Negative) Urine Blood (Negative) Urine Nitrite (Negative) Urine Bilirubin (Negative) Urine Urobilinogen (Negative) Ur Leukocyte Esterase (Negative) Urine WBC (Auto) (0-5) /hpf Urine RBC (Auto) (0-4) /hpf U Hyaline Cast (Auto) (0-5) /lpf U Epithel Cells (Auto) (0-5) /lpf Urine Bacteria (Auto) (Negative) Blood Type Antibody Screen Crossmatch 04/13/19 04/13/19 Range/Units 05:36 05:36 WBC (4.8-10.8) K/uL RBC (4.2-5.4) M/uL Hgb (12.0-16.0) g/dL Hct (37-47) % MCV (80-100) fL MCH (25-34) pg MCHC (32-36) g/dL RDW Std Deviation (36.4-46.3) fL RDW Coeff of Demetrio (11.5-14.5) % Plt Count (130-400) K/uL MPV (7.4-10.4) fL Immature Gran % (Auto) % Neut % (Auto) % Lymph % (Auto) % [place] % (Auto) % Eos % (Auto) % Baso % (Auto) % Immature Gran # (Auto) (0.00-0.02) K/uL Neut # (Auto) (1.4-6.5) K/uL Lymph # (Auto) (1.2-3.4) K/uL [place] # (Auto) (0.11-0.59) K/uL Eos # (Auto) (0-0.5) K/uL Baso # (Auto) (0-0.2) K/uL ESR (0-21) mm/hr PT 14.6 H (9.0-12.0) Seconds INR 1.5 H (0.9-1.1) Sodium 133 L (136-145) mmol/L Potassium 3.7 (3.5-5.1) mmol/L Chloride 97 L (98-107) mmol/L Carbon Dioxide 31 (21-32) mmol/L Anion Gap 5.0 (3-11) BUN 20 H (7-18) mg/dl Creatinine 0.96 (0.6-1.2) mg/dl Est Cr Clr Drug Dosing 50.4 Est GFR ( Amer) 66.1 Est GFR (Non-Af Amer) 57.0 BUN/Creatinine Ratio 20.4 H (10-20) Glucose 145 H (70-99) mg/dl POC Glucose (70-99) Calcium 8.6 (8.5-10.1) mg/dl NT-Pro-B Natriuret Pep (0-1800) pg/ml Specimen Hemolysis Urine Color Urine Appearance (Clear) Urine pH (4.5-7.5) Ur Specific [place] (1.000-1.030) Urine Protein (Negative) Urine Glucose (UA) (Negative) Urine Ketones (Negative) Urine Blood (Negative) Urine Nitrite (Negative) Urine Bilirubin (Negative) Urine Urobilinogen (Negative) Ur Leukocyte Esterase (Negative) Urine WBC (Auto) (0-5) /hpf Urine RBC (Auto) (0-4) /hpf U Hyaline Cast (Auto) (0-5) /lpf U Epithel Cells (Auto) (0-5) /lpf Urine Bacteria (Auto) (Negative) Blood Type Antibody Screen Crossmatch
--- NOTE | 2019-04-13 09:13 | XRay Report ---
SINGLE VIEW CHEST CLINICAL HISTORY: PICC placement. FINDINGS: An AP, portable, upright chest radiograph is compared to study dated 04/09/2019 and correlat ed with chest CT dated 08/23/2018. The examination is degraded by portable technique and patient rota tion. A right PICC line has been placed. This extends into the right internal jugular vein in the nec k. A 2-lead cardiac pacemaker is unchanged in position. The heart is enlarged and there is atheroscle rotic calcification of the thoracic aorta. There is pulmonary vascular congestion and interstitial ed sheldon. There are layering pleural effusions with bibasilar consolidation. No pneumothorax is seen. The skeletal structures are osteopenic. Extensive fusion hardware is seen at the thoracolumbar junction. There are bilateral shoulder arthroplasties. Radiodense structures in the left upper extremity repres ent antibiotic implants. IMPRESSION: 1. A right PICC line has been placed. This extends into the right internal jugular vein in the neck a nd repositioning is indicated. 2. Cardiomegaly with evidence of congestive failure and interstitial edema. This appears modestly wor sened as compared to 04/09/2019. 3. Layering pleural effusions with bibasilar consolidation. Electronically signed by: Christ Woodward M.D. 04/13/2019 9:12 AM
--- NOTE | 2019-04-13 09:56 | XRay Report ---
SINGLE VIEW CHEST CLINICAL HISTORY: PICC repositioning. FINDINGS: An AP, portable, upright chest radiograph is compared to study performed earlier the same d ay 04/13/2019 [address] correlated with chest CT dated 08/23/2018. The examination is degraded by portable te chnique and patient rotation. A right PICC line has been reposition. The tip now projects over the ca voatrial junction. A 2-lead cardiac pacemaker is unchanged in position. The heart is enlarged and the re is atherosclerotic calcification of the thoracic aorta. There is pulmonary vascular congestion and interstitial edema. There are layering pleural effusions with bibasilar consolidation. No pneumothor ax is seen. The skeletal structures are osteopenic. Extensive fusion hardware is seen at the thoracol umbar junction. There are bilateral shoulder arthroplasties. IMPRESSION: 1. A right PICC line has been reposition. The tip now projects over the cavoatrial junction. 2. Cardiomegaly with evidence of congestive failure and interstitial edema. 3. Layering pleural effusions with bibasilar consolidation. Electronically signed by: Christ Woodward M.D. 04/13/2019 9:55 AM
[2019-04-13] MEDS: METOPROLOL SUCC 25MG EXT REL TAB PO SCH ×2 (10:31→20:39)
[2019-04-13] MEDS: ERTAPENEM SODIUM 1,000 MG in SODIUM CHLORIDE 0.9% 50 ML IV SCH (10:31)
[2019-04-13] MEDS: FOLIC ACID 1 MG TAB PO SCH (10:32)
[2019-04-13] MEDS: MULTIVITAMIN TAB PO SCH (10:32)
--- NOTE | 2019-04-13 10:32 | Hospitalist Progress Note ---
Date of Service April 13, 2019 Assessment & Plan (1) Postoperative wound infection: Post TSA 03/20 with subsequent hematoma requiring 4 units PRBCs. Patient now with infection of surgical site - ID on board - placed patient on ertapenem for cultures growing ESBL Klebsiella and proteus - PICC placed, awaiting final surgical cultures - pain control per primary (2) Paroxysmal atrial fibrillation: On Coumadin - reversed to INR of 1.5 for surgery. - resumed Warfarin 04/12 with 5 mg, INR 1.5 today -Would not recommend bridging given previous hematoma. It will likely take a while for her to become therapeutic again give the amount of vitamin K required to reverse her. We did discuss risks and benefits of not bridging and she is in agreement. (3) Chronic congestive heart failure: Acute on chronic diastolic CHF treated with IV Lasix Lower extremity edema improved. BNP was 9,328 on 04/09, will repeat tomorrow morning Chest Xray for PICC placement 04/13 again showed congestive failure but now with layering pleural effusions and bibasilar consolidations. Developing pneumonia vs overload with atelectasis? No fevers, leukocytosis, or cough. Continue current abx regimen but if patient develops any of the latter would consider broadening coverage for hospital associated pneumonia. Received home po furosemide this morning, will give additional 40 mg IV Patient has had low UO but kidney function is stable (4) Sarcoidosis: (5) CAD (coronary artery disease): Resume ASA when ok with surgery, continue metoprolol, does not appear to be on a statin (6) Hypertension: continue metoprolol Subjective Ms. Hendrix continues to be very tired but attributes that to pain medication. S he continue to have intermittent numbness and tingling in her left 4th and 5th fingers. Review of Systems Review of Systems: All systems reviewed & are unremarkable except as noted in HPI & below Physical Exam Physical Exam: General: no distress Eyes: normal inspection, PERLL Respiratory: chest non tender, crackles bilateral bases, no respiratory distress, no accessory muscle use Cardiac: regular rate and rhythm, no rub or gallop, no murmur, no edema, no jvd GI/: active bowel sounds, no abd pain or tenderness, soft, non distended Extremities: normal range of motion, normal strength, non tender Neuro/Psych: drowsy and oriented x 3, normal mood and affect Skin: normal color, dry Results & Data Vital Signs (Past 12 Hours) Vital Signs Temp Pulse Pulse Resp BP Pulse Ox 04/13/19 08:03 36.5 C 59 L 16 108/67 100 04/12/19 23:45 37 C 60 18 109/60 98
[2019-04-13] MEDS: LIDOCAINE 5% 1 PATCH TD SCH (10:33)
[2019-04-13] MEDS: FUROSEMIDE 40 MG TAB PO SCH (10:33)
[2019-04-13] MEDS: DOCUSATE SODIUM 100 MG CAP PO SCH ×2 (10:33→20:37)
[2019-04-13] MEDS: FERROUS GLUCONATE 324 MG TAB PO SCH ×2 (10:34→16:19)
[2019-04-13] MEDS ORDERED: FUROSEMIDE 40 MG in SYRINGE 0 ML IV ONE (10:45)
[2019-04-13] MEDS: WARFARIN SOD 5 MG TAB PO SCH (16:18)
[2019-04-13] MEDS: SENNA 8.6 MG TAB PO SCH (20:37)
[2019-04-13] MEDS: LACTOBACILLUS ACIDOPHILUS (FLORANEX) TAB PO SCH (20:38)
[2019-04-13] MEDS: MONTELUKAST SODIUM 10 MG TABLET PO SCH (20:39)
[2019-04-13] MEDS: HEPARIN SOD 5,000 UNIT/0.5 ML VIAL SQ SCH (20:47)
[2019-04-14] MEDS: OXYCODONE HCL IR 5 MG TAB (IMMEDIATE RELEASE) PO PRN (05:42)
[2019-04-14 06:23] LABS: Basophils # (auto) 0.03 K/uL (0-0.2); Basophils % (auto) 0.4 %; Eosinophils # (auto) 0.34 K/uL (0-0.5); Eosinophils % (auto) 4.5 %; Hematocrit (blood only) 29.7 % (37-47); Hemoglobin 9.5 g/dL (12.0-16.0); Immature Granulocytes # (auto) 0.02 K/uL (0.00-0.02); Immature Granulocytes % (auto) 0.3 %; Lymphocytes # (auto) 0.86 K/uL (1.2-3.4); Lymphocytes % (auto) 11.5 %; Mean Corpuscular Volume 100.7 fL (80-100); Mean Platelet Volume 9.7 fL (7.4-10.4); Monocytes # (auto) 1.63 K/uL (0.11-0.59); Monocytes % (auto) 21.7 %; Neutrophils # (auto) 4.62 K/uL (1.4-6.5); Neutrophils % (auto) 61.6 %; Platelet Count 346 K/uL (130-400); RDW Standard Deviation 65.4 fL (36.4-46.3); Red Blood Count 2.95 M/uL (4.2-5.4)
[2019-04-14 06:44] LABS: INR 1.7 (0.9-1.1); Prothrombin Time 17.2 Seconds (9.0-12.0)
[2019-04-14 06:52] LABS: BUN Creatinine Ratio 21.9 (10-20); Calcium 8.9 mg/dl (8.5-10.1); Est GFR (African American) 68.7; Est GFR (Non-African American) 59.3; Potassium 3.8 mmol/L (3.5-5.1)
[2019-04-14] MEDS: LIDOCAINE 5% 1 PATCH TD SCH (08:28)
[2019-04-14] MEDS: METOPROLOL SUCC 25MG EXT REL TAB PO SCH ×2 (08:28→21:01)
[2019-04-14] MEDS: MULTIVITAMIN TAB PO SCH (08:29)
[2019-04-14] MEDS: DOCUSATE SODIUM 100 MG CAP PO SCH ×2 (08:29→20:59)
[2019-04-14] MEDS: FOLIC ACID 1 MG TAB PO SCH (08:30)
[2019-04-14] MEDS: FUROSEMIDE 40 MG TAB PO SCH (08:30)
[2019-04-14] MEDS: HEPARIN SOD 5,000 UNIT/0.5 ML VIAL SQ SCH ×2 (08:30→21:00)
[2019-04-14] MEDS: FERROUS GLUCONATE 324 MG TAB PO SCH ×2 (08:30→17:13)
[2019-04-14] MEDS: ERTAPENEM SODIUM 1,000 MG in SODIUM CHLORIDE 0.9% 50 ML IV SCH (11:25)
[2019-04-14] MEDS: FUROSEMIDE 40 MG in SYRINGE 0 ML IV SCH ×2 (11:25→17:14)
[2019-04-14] MEDS ORDERED: KETOROLAC 30 MG/ML VIAL ONE (13:10)
--- NOTE | 2019-04-14 14:18 | Orthopedic Progress Note ---
Date of Service April 14, 2019 Assessment & Plan (1) Status post reverse total arthroplasty of left shoulder: POD #4, Left shoulder I&D skin, fat and subcutaneous muscle, placement of antibiotic beads, application wound vac. Sling at all times, may straighten elbow for stiffness only. As per ID on Ertapenem will need 4-[address] As per medicine Wound Care Nurse on board for wound vac care. Await intra op final cultures. Preop cultures grew ESBL Klebsiella. Intra op cultures growing ESBL Klebisella and Proteus Mirabilis barroso sensitive Subjective Post Operative Progress Note Patient seen sitting up in chair at bedside, comfortable, denies complaints, pain well controlled, no acute issues. Review of Systems Review of Systems: All systems reviewed & are unremarkable except as noted in HPI & below Constitutional: as per Subjective / HPI Physical Exam Physical Exam: RUE NVSI +2 radial pulse, dressing cdi, SILT grossly, shoulder immobilizer in place Constitutional: WD/WN, vitals as above Results & Data Vital Signs (Past 12 Hours) Vital Signs Temp Pulse Resp BP Pulse Ox 04/14/19 07:36 36.8 C 60 18 124/74 96
--- NOTE | 2019-04-14 14:48 | Hospitalist Progress Note ---
Date of Service April 14, 2019 Assessment & Plan (1) Postoperative wound infection: - S/p left TSA on 03/20/19; developed hematoma requiring evacuation on 03/26/19. - Presented with infected joint; s/p I&D skin, fat and muscle, placement of antibiotic beads and application of wound vac on 04/10/19. - ID following, appreciate input. - Wound cultures of left shoulder all positive for Klebsiella ESBL and Proteus. - PICC line placed for IV abx; will continue Ertapenem for prolonged course. - Pain control per primary team; DVT ppx with home Warfarin & Heparin ppx. (2) Acute on chronic diastolic heart failure: - Most recent TTE in Oct 2017 showed EF 55%, reduced right systolic function. Repeat TTE is pending. - Elevated BNP, on stable oxygen requirements. - CXR on 04/13 showed congestive failure with bibasilar consolidations (?PNA vs. atelectasis) - Hold home Lasix; started Lasix 40 mg IV BID for diuresis. - Continue Metoprolol as prescribed. - Monitor net I/Os and daily weights. (3) Chronic respiratory failure with hypoxia: - Chronically requires 2L via NC -- stable on home O2 even in setting of CHF. (4) CAD (coronary artery disease): - [place] in 2012 (LAD) following shoulder surgery. - Continue Metoprolol as prescribed; not on statin at home. (5) Hypertension: - Continue Metoprolol as prescribed. - Diuresis as noted above. (6) Paroxysmal atrial fibrillation: - S/p AV junction ablation and insertion of dual chamber/bi-ventricular pacemaker in May 2016. - Continue Metoprolol as prescribed. - Continue Warfarin and monitor INR daily. - Holding therapeutic Lovenox bridging due to recent hematoma; receiving Heparin ppx. (7) Stage III chronic kidney disease: - Renally dose all meds. (8) Obstructive sleep apnea: - Wears CPAP at night, was not ordered as inpatient. (9) Pulmonary HTN: - Severe, noted on TTE in 2016. - Requires 2L chronically. (10) Valvular heart disease: - Mod mitral regurg and severe tricuspid regurg noted on most recent TTE. (11) Sarcoidosis: - Monitored as outpatient. (12) Obesity: - BMI 37, encourage weight loss. (13) DVT prophylaxis: - Resumed home Coumadin; Heparin ppx. Dispo: Will continue to follow. Supervising Physician Co-Signing Physician Notes PA Supervision Note: I did not personally see or examine the patient today, but I verified all tidwell points of MARION Waller's assessment and plan with the following exceptions/additions: None Subjective Pt. is doing well overall - she is very fatigued this morning. Has left shoulder pain, well controlled. She is on 2L via NC -- uses oxygen with ambulation but is otherwise on room air at home. Denies SOB at rest, has not been ambulating to bathroom to evaluate SOB with exertion. Review of Systems Review of Systems: All systems reviewed & are unremarkable except as noted in HPI & below Constitutional: + fatigue and + weakness; no fever, no chills and no anorexia Respiratory: no cough, no dyspnea, no dyspnea on exertion and no wheezing Cardiovascular: no chest pain, no palpitations and no edema Gastrointestinal: no abdominal pain, no nausea and no constipation Genitourinary: no difficulty urinating Musculoskeletal: no back pain and no joint pain Integumentary: no non-healing lesions Allergy / Immunological: no rash Physical Exam Physical Exam: General: Resting comfortably in no apparent distress; A&OX3 HEENT: NC/AT; PERRLA with EOMI; [place] conjunctiva, MMM. No erythema of posterior pharynx Neck: Supple and nontender Cardiac: RRR Lungs: on 2L via NC; crackles in bilat lower lung bases. Abdomen: Bowel normoactive X 4; Nontender to light palpation. Extremities: Warm. No edema present Neuro: No focal weakness Skin: No rash Results & Data Vital Signs (Past 12 Hours) Vital Signs Temp Pulse Resp BP Pulse Ox 04/14/19 07:36 36.8 C 60 18 124/74 96 Laboratory Results 04/14/19 04/14/19 04/14/19 Range/Units 14:24 05:50 05:50 WBC (4.8-10.8) K/uL RBC (4.2-5.4) M/uL Hgb (12.0-16.0) g/dL Hct (37-47) % MCV (80-100) fL MCH (25-34) pg MCHC (32-36) g/dL RDW Std Deviation (36.4-46.3) fL RDW Coeff of Demetrio (11.5-14.5) % Plt Count (130-400) K/uL MPV (7.4-10.4) fL Immature Gran % (Auto) % Neut % (Auto) % Lymph % (Auto) % [place] % (Auto) % Eos % (Auto) % Baso % (Auto) % Immature Gran # (Auto) (0.00-0.02) K/uL Neut # (Auto) (1.4-6.5) K/uL Lymph # (Auto) (1.2-3.4) K/uL [place] # (Auto) (0.11-0.59) K/uL Eos # (Auto) (0-0.5) K/uL Baso # (Auto) (0-0.2) K/uL PT 17.2 H (9.0-12.0) Seconds INR 1.7 H (0.9-1.1) Sodium Pending 135 L (136-145) mmol/L Potassium Pending 3.8 (3.5-5.1) mmol/L Chloride Pending 97 L (98-107) mmol/L Carbon Dioxide Pending 34 H (21-32) mmol/L Anion Gap Pending 4.0 (3-11) BUN Pending 20 H (7-18) mg/dl Creatinine Pending 0.93 (0.6-1.2) mg/dl Est Cr Clr Drug Dosing Pending 52.0 ml/min Est GFR ( Amer) Pending 68.7 Est GFR (Non-Af Amer) Pending 59.3 BUN/Creatinine Ratio Pending 21.9 H (10-20) Glucose Pending 109 H (70-99) mg/dl Calcium Pending 8.9 (8.5-10.1) mg/dl NT-Pro-B Natriuret Pep 38281 H (0-1800) pg/ml 04/14/19 Range/Units 05:50 WBC 7.50 (4.8-10.8) K/uL RBC 2.95 L (4.2-5.4) M/uL Hgb 9.5 L (12.0-16.0) g/dL Hct 29.7 L (37-47) % MCV 100.7 H (80-100) fL MCH 32.2 (25-34) pg MCHC 32.0 (32-36) g/dL RDW Std Deviation 65.4 H (36.4-46.3) fL RDW Coeff of Demetrio 18.0 H (11.5-14.5) % Plt Count 346 (130-400) K/uL MPV 9.7 (7.4-10.4) fL Immature Gran % (Auto) 0.3 % Neut % (Auto) 61.6 % Lymph % (Auto) 11.5 % [place] % (Auto) 21.7 % Eos % (Auto) 4.5 % Baso % (Auto) 0.4 % Immature Gran # (Auto) 0.02 (0.00-0.02) K/uL Neut # (Auto) 4.62 (1.4-6.5) K/uL Lymph # (Auto) 0.86 L (1.2-3.4) K/uL [place] # (Auto) 1.63 H (0.11-0.59) K/uL Eos # (Auto) 0.34 (0-0.5) K/uL Baso # (Auto) 0.03 (0-0.2) K/uL PT (9.0-12.0) Seconds INR (0.9-1.1) Sodium (136-145) mmol/L Potassium (3.5-5.1) mmol/L Chloride (98-107) mmol/L Carbon Dioxide (21-32) mmol/L Anion Gap (3-11) BUN (7-18) mg/dl Creatinine (0.6-1.2) mg/dl Est Cr Clr Drug Dosing ml/min Est GFR ( Amer) Est GFR (Non-Af Amer) BUN/Creatinine Ratio (10-20) Glucose (70-99) mg/dl Calcium (8.5-10.1) mg/dl NT-Pro-B Natriuret Pep (0-1800) pg/ml
[2019-04-14 15:15] LABS: BUN Creatinine Ratio 18.8 (10-20); Calcium 8.8 mg/dl (8.5-10.1); Creatinine Clr Calc Pharmacy 45.6 ml/min; Est GFR (African American) 58.7; Est GFR (Non-African American) 50.6; Potassium 3.7 mmol/L (3.5-5.1)
--- NOTE | 2019-04-14 16:33 | Orthopedic Progress Note ---
Date of Service April 14, 2019 Assessment & Plan (1) Status post reverse total arthroplasty of left shoulder: POD #4, Left shoulder I&D skin, fat and subcutaneous muscle, placement of antibiotic beads, application wound vac. Sling at all times, may straighten elbow for stiffness only. As per ID on Ertapenem will need 4-[address] As per medicine Wound Care Nurse on board for wound vac care. Await intra op final cultures. Preop cultures grew ESBL Klebsiella. Intra op cultures growing ESBL Klebisella and Proteus Mirabilis barroso sensitive Results & Data Vital Signs (Past 12 Hours) Vital Signs Temp Pulse Pulse Resp BP BP Pulse Ox 04/14/19 15:06 36.8 C 60 20 143/84 H 100 04/14/19 07:36 36.8 C 60 18 124/74 96
[2019-04-14] MEDS: WARFARIN SOD 5 MG TAB PO SCH (17:13)
[2019-04-14] MEDS: SENNA 8.6 MG TAB PO SCH (20:59)
[2019-04-14] MEDS: LACTOBACILLUS ACIDOPHILUS (FLORANEX) TAB PO SCH (21:00)
[2019-04-14] MEDS: MONTELUKAST SODIUM 10 MG TABLET PO SCH (21:01)
[2019-04-15 08:44] LABS: Hematocrit (blood only) 30.9 % (37-47); Hemoglobin 9.8 g/dL (12.0-16.0); Mean Corpuscular Hgb Conc 31.7 g/dL (32-36); Mean Platelet Volume 9.6 fL (7.4-10.4); Platelet Count 357 K/uL (130-400); RDW Coefficient of Variation 18.2 % (11.5-14.5); RDW Standard Deviation 66.1 fL (36.4-46.3); Red Blood Count 3.06 M/uL (4.2-5.4); White Blood Count 6.69 K/uL (4.8-10.8)
[2019-04-15 08:57] LABS: INR 2.3 (0.9-1.1); Prothrombin Time 21.8 Seconds (9.0-12.0)
[2019-04-15 09:06] LABS: BUN Creatinine Ratio 21.2 (10-20); Calcium 9.2 mg/dl (8.5-10.1); Creatinine Clr Calc Pharmacy 57.2 ml/min; Est GFR (African American) 76.6; Est GFR (Non-African American) 66.1; Magnesium 1.7 mg/dl (1.8-2.4); Potassium 3.3 mmol/L (3.5-5.1)
[2019-04-15] MEDS: FERROUS GLUCONATE 324 MG TAB PO SCH ×2 (09:30→17:11)
[2019-04-15] MEDS: DOCUSATE SODIUM 100 MG CAP PO SCH ×2 (09:31→22:25)
[2019-04-15] MEDS: METOPROLOL SUCC 25MG EXT REL TAB PO SCH ×2 (09:32→22:28)
[2019-04-15] MEDS: FOLIC ACID 1 MG TAB PO SCH (09:34)
[2019-04-15] MEDS: MULTIVITAMIN TAB PO SCH (09:34)
[2019-04-15] MEDS: LIDOCAINE 5% 1 PATCH TD SCH (09:35)
[2019-04-15] MEDS: FUROSEMIDE 40 MG in SYRINGE 0 ML IV SCH ×2 (09:41→17:12)
[2019-04-15] MEDS ORDERED: POTASSIUM CHLORIDE 20 MEQ TABCR PO STA (10:08)
[2019-04-15] MEDS ORDERED: MAGNESIUM OXIDE 400 MG TAB PO ONE (10:10)
[2019-04-15] MEDS: HEPARIN SOD 5,000 UNIT/0.5 ML VIAL SQ SCH (10:37)
[2019-04-15] MEDS: ERTAPENEM SODIUM 1,000 MG in SODIUM CHLORIDE 0.9% 50 ML IV SCH (10:44)
--- NOTE | 2019-04-15 12:41 | Hospitalist Progress Note ---
Date of Service April 15, 2019 Assessment & Plan (1) Postoperative wound infection: - S/p left TSA on 03/20/19; developed hematoma requiring evacuation on 03/26/19. - Presented with infected joint; s/p I&D skin, fat and muscle, placement of antibiotic beads and application of wound vac on 04/10/19. - ID following, appreciate input. - Wound cultures of left shoulder positive for Klebsiella ESBL and Proteus. - PICC line placed; continue Ertapenem IV for prolonged course. - Pain control per primary team; DVT ppx with home Warfarin. (2) Acute on chronic diastolic heart failure: - TTE during this admission showed EF 60-65%, mild to moderately reduced right systolic function. - Has elevated BNP but has stable O2 requirements. - CXR 04/13 showed congestive failure with bibasilar consolidations (?PNA vs. atelectasis) - Holding home Lasix; Lasix 40 mg IV BID for diuresis. - Continue Metoprolol as prescribed. - Monitor net I/Os and daily weights. (3) Chronic respiratory failure with hypoxia: - Chronically requires 2L via NC -- stable on home O2. (4) CAD (coronary artery disease): - [place] in 2012 (LAD) following shoulder surgery. - Continue Metoprolol as prescribed; not on statin at home. (5) Hypertension: - Continue Metoprolol as prescribed. - Diuresis as noted above. (6) Paroxysmal atrial fibrillation: - S/p AV junction ablation and insertion of dual chamber/bi-ventricular pacemaker in May 2016. - Continue Metoprolol as prescribed. - Continue Warfarin and monitor INR daily -- INR was therapeutic, d/c'ed Heparin ppx. (7) Stage III chronic kidney disease: - Renally dose all meds. (8) Obstructive sleep apnea: - Wears CPAP at night - ordered as inpt. (9) Pulmonary HTN: - Severe, noted on TTE in 2017. - Requires 2L chronically. (10) Valvular heart disease: - Mod mitral regurg and severe tricuspid regurg noted on most recent TTE. (11) Sarcoidosis: - Monitored as outpatient. (12) Obesity: - BMI 37, encourage weight loss. (13) Electrolyte abnormality: - K level 3.3, Mag 1.7 -- ordered K 40 mEq PO and Mag oxide 400 mg PO. - Monitor levels qAM. (14) DVT prophylaxis: - Resumed home Coumadin. Dispo: Will continue to follow, please call with any questions. Supervising Physician Co-Signing Physician Notes PA Supervision Note: I did not personally see or examine the patient today, but I verified all tidwell points of MARION Waller's assessment and plan with the following exceptions/additions: None Subjective Pt. states breathing is slightly improved. She has SOB with exertion, denies SOB at rest. Is requiring 2L via NC. Feels like breathing is close to baseline. Denies pain in left shoulder. Has left lower leg wound and right buttock wound -- will consult wound care. Review of Systems Review of Systems: All systems reviewed & are unremarkable except as noted in HPI & below Constitutional: no fever, no chills, no fatigue, no weakness and no anorexia Respiratory: + dyspnea on exertion; no cough, no dyspnea and no wheezing Cardiovascular: + edema; no chest pain, no palpitations, no lightheadedness and no syncope Gastrointestinal: no abdominal pain, no nausea and no constipation Genitourinary: no difficulty urinating Musculoskeletal: no back pain and no joint pain Integumentary: + non-healing lesions (Left anterior jarquin and right buttock ) Allergy / Immunological: no rash Physical Exam Physical Exam: General: Resting comfortably in no apparent distress; A&OX3 HEENT: NC/AT; PERRLA with EOMI; [place] conjunctiva, MMM. No erythema of posterior pharynx Neck: Supple and nontender Cardiac: RRR Lungs: on 2L via NC; mild crackles in bilat lower lung bases. Abdomen: Bowel normoactive X 4; Nontender to light palpation. Extremities: Warm. +2 chronic LE edema, rubor of bilat LE. Neuro: No focal weakness Skin: Wound on left anterior jarquin, no surrounding erythema or discharge. Did not visualize right buttock wound. Results & Data Vital Signs (Past 12 Hours) Vital Signs Temp Pulse Resp BP Pulse Ox 04/15/19 07:16 36.2 C L 61 16 161/86 H 100 Laboratory Results 04/15/19 04/15/19 04/15/19 Range/Units 07:59 07:59 07:59 WBC 6.69 (4.8-10.8) K/uL RBC 3.06 L (4.2-5.4) M/uL Hgb 9.8 L (12.0-16.0) g/dL Hct 30.9 L (37-47) % MCV 101.0 H (80-100) fL MCH 32.0 (25-34) pg MCHC 31.7 L (32-36) g/dL RDW Std Deviation 66.1 H (36.4-46.3) fL RDW Coeff of Demetrio 18.2 H (11.5-14.5) % Plt Count 357 (130-400) K/uL MPV 9.6 (7.4-10.4) fL PT 21.8 H (9.0-12.0) Seconds INR 2.3 H (0.9-1.1) Sodium 137 (136-145) mmol/L Potassium 3.3 L (3.5-5.1) mmol/L Chloride 96 L (98-107) mmol/L Carbon Dioxide 35 H (21-32) mmol/L Anion Gap 6.0 (3-11) BUN 18 (7-18) mg/dl Creatinine 0.85 (0.6-1.2) mg/dl Est Cr Clr Drug Dosing 57.2 ml/min Est GFR ( Amer) 76.6 Est GFR (Non-Af Amer) 66.1 BUN/Creatinine Ratio 21.2 H (10-20) Glucose 160 H (70-99) mg/dl Calcium 9.2 (8.5-10.1) mg/dl Magnesium 1.7 L (1.8-2.4) mg/dl 04/14/19 Range/Units 14:24 WBC (4.8-10.8) K/uL RBC (4.2-5.4) M/uL Hgb (12.0-16.0) g/dL Hct (37-47) % MCV (80-100) fL MCH (25-34) pg MCHC (32-36) g/dL RDW Std Deviation (36.4-46.3) fL RDW Coeff of Demetrio (11.5-14.5) % Plt Count (130-400) K/uL MPV (7.4-10.4) fL PT (9.0-12.0) Seconds INR (0.9-1.1) Sodium 134 L (136-145) mmol/L Potassium 3.7 (3.5-5.1) mmol/L Chloride 96 L (98-107) mmol/L Carbon Dioxide 34 H (21-32) mmol/L Anion Gap 4.0 (3-11) BUN 20 H (7-18) mg/dl Creatinine 1.06 (0.6-1.2) mg/dl Est Cr Clr Drug Dosing 45.6 ml/min Est GFR ( Amer) 58.7 Est GFR (Non-Af Amer) 50.6 BUN/Creatinine Ratio 18.8 (10-20) Glucose 218 H (70-99) mg/dl Calcium 8.8 (8.5-10.1) mg/dl Magnesium (1.8-2.4) mg/dl
--- NOTE | 2019-04-15 16:33 | Orthopedic Progress Note ---
Date of Service April 15, 2019 Assessment & Plan (1) Postoperative wound infection: POD 5 Planning for [facility] tomorrow. Continue Wound Vac. Continue IV antibx for 6 weeks. Return to Wound Clinic on 04/21 at 10AM. continue PT/OT protocols. Subjective POD 5 s/p I&D left shoulder Pt lying in bed. Feeling tired this afternoon. States she ambulated to the BR and back without difficulty. [place] "wiped out" after it was all done. No other complaints. Pain controlled. States she's not using much in the way of pain medications. Physical Exam Physical Exam: left shoulder wound vac intact and functioning well. No erythema. Minimal swelling. Swelling into hand continues but not worsened. Continues with decreased sensation in the 4th/5th left fingers but no worse. Able to to move the fingers but weak compared to the other 3. Good wrist ROM. Results & Data Vital Signs (Past 12 Hours) Vital Signs Temp Pulse Resp BP BP Pulse Ox 04/15/19 15:49 36.9 C 60 16 129/74 99 04/15/19 07:16 36.2 C L 61 16 161/86 H 100
[2019-04-15] MEDS: WARFARIN SOD 5 MG TAB PO SCH (17:11)
[2019-04-15] MEDS: SENNA 8.6 MG TAB PO SCH (22:25)
[2019-04-15] MEDS: LACTOBACILLUS ACIDOPHILUS (FLORANEX) TAB PO SCH (22:28)
[2019-04-15] MEDS: MONTELUKAST SODIUM 10 MG TABLET PO SCH (22:28)
[2019-04-16 06:20] LABS: Hematocrit (blood only) 28.4 % (37-47); Hemoglobin 9.3 g/dL (12.0-16.0); Mean Corpuscular Hgb Conc 32.7 g/dL (32-36); Mean Corpuscular Volume 100.7 fL (80-100); Mean Platelet Volume 9.6 fL (7.4-10.4); Platelet Count 326 K/uL (130-400); RDW Coefficient of Variation 18.2 % (11.5-14.5); RDW Standard Deviation 66.3 fL (36.4-46.3); Red Blood Count 2.82 M/uL (4.2-5.4); White Blood Count 6.41 K/uL (4.8-10.8)
[2019-04-16 06:27] LABS: INR 2.9 (0.9-1.1); Prothrombin Time 27.3 Seconds (9.0-12.0)
[2019-04-16 07:00] LABS: BUN Creatinine Ratio 21.3 (10-20); Calcium 8.8 mg/dl (8.5-10.1); Creatinine Clr Calc Pharmacy 63.6 ml/min; Est GFR (African American) 90.6; Est GFR (Non-African American) 78.1; Magnesium 1.7 mg/dl (1.8-2.4); Potassium 3.5 mmol/L (3.5-5.1)
[2019-04-16] MEDS: METOPROLOL SUCC 25MG EXT REL TAB PO SCH (08:29)
[2019-04-16] MEDS: LIDOCAINE 5% 1 PATCH TD SCH (08:31)
[2019-04-16] MEDS: FOLIC ACID 1 MG TAB PO SCH (08:31)
[2019-04-16] MEDS: FERROUS GLUCONATE 324 MG TAB PO SCH (08:31)
[2019-04-16] MEDS: MULTIVITAMIN TAB PO SCH (08:31)
[2019-04-16] MEDS: DOCUSATE SODIUM 100 MG CAP PO SCH (08:32)
[2019-04-16] MEDS: FUROSEMIDE 40 MG in SYRINGE 0 ML IV SCH (08:43)
[2019-04-16] MEDS ORDERED: POTASSIUM CHLORIDE 20 MEQ TABCR PO STA (08:53)
[2019-04-16] MEDS ORDERED: MAGNESIUM SULFATE / D5W 1 GM/100 ML BAG IV ONE (09:00)
--- NOTE | 2019-04-16 10:17 | Orthopedic Progress Note ---
Date of Service April 16, 2019 Assessment & Plan (1) Postoperative wound infection: POD 6 Planning for [facility] if medicine okay. Continue Wound Vac. Continue IV antibx for 6 weeks. Return to Wound Clinic on 04/21 at 10AM. continue PT/OT protocols. Subjective POD 6 s/p I&D left shoulder Pt sitting in chair today. States she ambulated to the BR and back without difficulty. No complaints. Pain controlled. States she's not using much in the way of pain medications. Physical Exam Physical Exam: Left shoulder wound vac in tact and holding suction well. Fingers mobile. Sling in tact. N/V+ A&Ox3. Results & Data Vital Signs (Past 12 Hours) Vital Signs Temp Pulse Pulse Resp BP BP Pulse Ox 04/16/19 07:50 36.5 C 60 16 116/57 L 99 04/15/19 23:41 36.9 C 60 19 124/70 99
[2019-04-16] MEDS: ERTAPENEM SODIUM 1,000 MG in SODIUM CHLORIDE 0.9% 50 ML IV SCH (11:15)
--- NOTE | 2019-04-16 12:55 | Hospitalist Progress Note ---
Date of Service April 16, 2019 Assessment & Plan (1) Postoperative wound infection: - S/p left TSA on 03/20/19; developed hematoma requiring evacuation on 03/26/19. - Presented with infected joint; s/p I&D skin, fat and muscle, placement of antibiotic beads and application of wound vac on 04/10/19. - ID consulted - Wound cultures of left shoulder positive for Klebsiella ESBL and Proteus. - PICC line placed; continue Ertapenem IV for prolonged course 4-6 weeks - Pain control per primary team; DVT ppx with home Warfarin. (2) Acute on chronic diastolic heart failure: - TTE during this admission showed EF 60-65%, mild to moderately reduced right systolic function. - Has elevated BNP but has stable O2 requirements. - CXR 04/13 showed congestive failure with bibasilar consolidations (?PNA vs. atelectasis) - Diuresed with IV lasix inpatient, will increase home Lasix to 40 mg BID and repeat prp in 2 days. - Continue Metoprolol as prescribed. - Monitor net I/Os and daily weights - patient's weight down 4 kg, improving edema lower extremities (3) Chronic respiratory failure with hypoxia: - Chronically requires 2L via NC -- stable on home O2. (4) CAD (coronary artery disease): - [place] in 2012 (LAD) following shoulder surgery. - Continue Metoprolol as prescribed; not on statin at home. (5) Hypertension: - Continue Metoprolol as prescribed. - Diuresis as noted above. (6) Paroxysmal atrial fibrillation: - S/p AV junction ablation and insertion of dual chamber/bi-ventricular pacemaker in May 2016. - Continue Metoprolol as prescribed. - Continue Warfarin - therapeutic, can return to home dosing (7) Stage III chronic kidney disease: - Renally dose all meds. (8) Obstructive sleep apnea: - Wears CPAP at night - ordered as inpt. (9) Pulmonary HTN: - Severe, noted on TTE in 2017. - Requires 2L chronically. (10) Valvular heart disease: - Mod mitral regurg and severe tricuspid regurg noted on most recent TTE. (11) Sarcoidosis: - Monitored as outpatient. (12) Obesity: - BMI 37, encourage weight loss. (13) Electrolyte abnormality: - resolved (14) DVT prophylaxis: home Coumadin. Dispo: patient ok for discharge from hospitalist perspective. Supervising Physician Co-Signing Physician Notes INSECTICIDE SUPERVISOR Supervision note: I have personally seen and examined the patient and discussed and verified the tidwell points of the history and physical along with the plan with EMILY Dominique with the following exceptions and/or additions: Patient feeling well, not short of breath except with some exertion. Pain controlled in the shoulder. Making urine, tolerating p.o., moving her bowels. Vitals reviewed Regular rate and rhythm, 2/6 systolic murmur at the left lower sternal border Lungs with decreased breath sounds at the bases but otherwise clear Lower extremities with 2-3+ pitting edema to the thighs bilaterally, multiple ar eas of ecchymosis, left shoulder in sling with wound VAC in place 78-year-old female with history as above, here with infection of left shoulder, now status post washout and wound VAC placement, needs long-term IV antibiotics With acute on chronic diastolic CHF and right-sided heart failure due to excessive fluid intake during illness. Has diuresed, still has more fluid to diuresis but can be done with oral diuretics at rehab facility. Recommend follow-up BMP within the week and daily weights. Subjective Ms. Hnedrix is a bit drowsy today. She reports pain is controlled. She denies sob or chest pain. Mild cough, non productive Review of Systems Review of Systems: All systems reviewed & are unremarkable except as noted in HPI & below Physical Exam Physical Exam: General: no distress Eyes: normal inspection, PERLL Respiratory: chest non tender, crackles bilateral bases, no respiratory distress, no accessory muscle use Cardiac: regular rate and rhythm, no rub or gallop, no murmur, pitting edema bilateral lower extremities, GI/: active bowel sounds, no abd pain or tenderness, soft, non distended Extremities: normal range of motion, normal strength, non tender Neuro/Psych: alert and oriented x 3, normal mood and affect Skin: normal color, dry, wound vac intact Results & Data Vital Signs (Past 12 Hours) Vital Signs Temp Pulse Resp BP Pulse Ox 04/16/19 07:50 36.5 C 60 16 116/57 L 99
[2019-04-16] MEDS: WARFARIN SOD 5 MG TAB PO SCH (17:12)
--- NOTE | 2019-04-16 17:18 | Orthopedic Progress Note ---
Date of Service April 16, 2019 Assessment & Plan (1) Postoperative wound infection: POD 6 Planning for [facility] if medicine okay. Continue Wound Vac. Continue IV antibx for 6 weeks. Return to Wound Clinic on 04/21 at 10AM. continue PT/OT protocols. Will need to have regular evaluation by wound nurse at [facility] and have regular dressing changes to pretibial skin laceration. Patient will eventually require plastic surgery consultation which will likely be required for wound closure once infection is under control. Continue wound VAC for now. Subjective POD 6 s/p I&D left shoulder Pt sitting in chair today. States she ambulated to the BR and back without difficulty. No complaints. Pain controlled. States she's not using much in the way of pain medications. Physical Exam Physical Exam: Wound VAC holding suction well some bruised appearing skin medial arm and axilla area but does not appear to be compromised skin that would go onto any necrosis. Her left jarquin laceration is draining significant amount of edema fluid and she does have edema in both of her lower extremities. There is no signs of infection and the fluid just appears to be edema fluid. Results & Data Vital Signs (Past 12 Hours) Vital Signs Temp Pulse Pulse Pulse Pulse Resp BP 04/16/19 14:10 36.5 C 60 60 60 60 16 124/74 04/16/19 07:50 36.5 C 60 16 BP BP BP Pulse Ox 04/16/19 14:10 116/57 L 108/67 124/70 99 04/16/19 07:50 116/57 L 99
--- NOTE | 2019-04-29 20:25 | Discharge Summary ---
HISTORY AND HOSPITAL COURSE: This is a 78-year-old female who had a reverse total shoulder placement done on 03/20/2019. She had postoperative complications with bleeding due to anticoagulant. She was placed on due to her history of atrial fibrillation. The patient had more than typical bleeding postoperatively and developed a large hematoma in her left shoulder. This required incision and drainage, irrigation and debridement. The patient tolerated that procedure well, but at the time of surgery, she had some fracture blisters and had some superficial skin necrosis on the medial aspect of her skin that was lower than the incision. She was placed postoperative antibiotics and oral antibiotics and was transferred to rehab. She subsequently developed foul-smelling wound, which was not initially reported to us, and she came to us as a followup visit regularly scheduled with infection and skin necrosis. Superficial wound culture was obtained in the office growing Klebsiella. She was seen by Infectious Disease, admitted back to the hospital, put on vancomycin and later on ertapenem IV antibiotics. Her wound necrosis worsened. Her INR was decreased with vitamin K so she could have surgical treatment of the infection. The patient underwent a left shoulder incision and drainage, irrigation and debridement of wound infection involving skin, subcutaneous and muscle tissue with debridement of the infected skin and placement of antibiotic beads and placement of a wound VAC. This was done on 04/08/2019. Cultures were followed as well as Infectious Disease. She continued ertapenem IV and she was discharged on this on 04/16/2019. She will continue wound care and wound management with a wound VAC as well as the antibiotics for 6 weeks. She will follow up with us as an outpatient as scheduled, again with a regular evaluation with a wound nurse per [facility]. PHYSICAL EXAMINATION ON DISCHARGE: The patient's wound VAC was clean, dry and intact. There is no drainage. There is no erythema. The patient proceeded and continued with the above recommendations.
== END 2019-04-16 17:29 | DRG 500 ==
LOC: 3N 16:06

== ENCOUNTER 2019-06-20 11:05 | Inpatient (IN) ==
[2019-06-20] MEDS ORDERED: SODIUM CHLORIDE 0.9% 1000ML 1,000 ML IV SCH (12:00)
[2019-06-20 12:24] LABS: iSTAT Hemoglobin 12.9 g/dl (12.0-16.0); iSTAT Ionized Calcium 1.25 mmol/l (1.12-1.32); iSTAT Potassium 5.3 mEq/L (3.3-5.0)
--- NOTE | 2019-06-20 12:31 | XRay Report ---
XR chest 1V portable CLINICAL HISTORY: weakness COMPARISON STUDY: Chest CT August 23, 2018. Chest radiograph April 13, 2019. FINDINGS: Bilateral shoulder arthroplasties, lumbar spine fusion hardware and biventricular left subc lavian pacer are in place. Elevation of the right hemidiaphragm is unchanged. There are suspected tra ce bilateral pleural effusions. Interstitial thickening and mild bilateral opacities are noted. Findi ngs have improved since exam of April 13, 2019. There is no pneumothorax. IMPRESSION: 1. Mild interstitial thickening and bilateral opacities which have improved since exam of April 13 9. 2. Suspected trace bilateral pleural effusions. Electronically signed by: Tucker Rosenbaum M.D. 06/20/2019 12:29 PM
[2019-06-20 12:57] LABS: Alanine Aminotransferase 10 U/L (12-78); Albumin Level 2.5 gm/dl (3.4-5.0); Aspartate Aminotransferase 26 U/L (15-37); BUN Creatinine Ratio 28.2 (10-20); Blood Urea Nitrogen 77 mg/dl (7-18); Calcium 10.6 mg/dl (8.5-10.1); Carbon Dioxide 23 mmol/L (21-32); Chloride 103 mmol/L (98-107); Creatinine Clr Calc Pharmacy 18.3 ml/min; Est GFR (African American) 18.9; Est GFR (Non-African American) 16.3; Glucose 68 mg/dl (70-99); Magnesium 2.7 mg/dl (1.8-2.4); Potassium 4.8 mmol/L (3.5-5.1); Sodium 135 mmol/L (136-145)
[2019-06-20 13:08] LABS: Albumin Globulin Ratio 0.5 (0.9-2); Alkaline Phosphatase 137 U/L (45-117); Bilirubin,Total 1.4 mg/dl (0.2-1); Globulin 4.8 gm/dl (2.5-4.0); Total Protein 7.3 gm/dl (6.4-8.2); Troponin I < 0.015 ng/ml (0-0.045)
[2019-06-20 13:19] LABS: Basophils # (auto) 0.01 K/uL (0-0.2); Basophils % (auto) 0.1 %; Eosinophils # (auto) 0.27 K/uL (0-0.5); Eosinophils % (auto) 3.8 %; Hematocrit (blood only) 34.6 % (37-47); Hemoglobin 11.5 g/dL (12.0-16.0); Immature Granulocytes # (auto) 0.01 K/uL (0.00-0.02); Immature Granulocytes % (auto) 0.1 %; Lymphocytes # (auto) 1.12 K/uL (1.2-3.4); Lymphocytes % (auto) 15.8 %; Mean Corpuscular Volume 95.3 fL (80-100); Monocytes # (auto) 1.15 K/uL (0.11-0.59); Monocytes % (auto) 16.2 %; Neutrophils # (auto) 4.52 K/uL (1.4-6.5); Platelet Count 112 K/uL (130-400); RDW Coefficient of Variation 20.1 % (11.5-14.5); RDW Standard Deviation 65.1 fL (36.4-46.3); Red Blood Count 3.63 M/uL (4.2-5.4); White Blood Count 7.08 K/uL (4.8-10.8)
[2019-06-20 13:20] LABS: T4 Free Thyroxine 1.37 ng/dl (0.8-1.6)
[2019-06-20] MEDS ORDERED: DEXTROSE 50% 50 ML SYRINGE IV ONE (13:40)
[2019-06-20 13:51] LABS: Anisocytosis Present; Echinocytes 1+; Mean Corpuscular Hgb Conc 33.2 g/dL (32-36); Platelet Estimate Decreased (Normal)
[2019-06-20 13:53] LABS: Giant Platelets 1+
[2019-06-20] MEDS ORDERED: ACETAMINOPHEN 325 MG TAB PO PRN (15:07)
[2019-06-20] MEDS ORDERED: ZOLPIDEM TARTRATE 5 MG TAB PO PRN (15:07)
[2019-06-20] MEDS ORDERED: NITROGLYCERIN SL 0.4 MG/TAB TAB SL PRN ×2 (15:07→16:45)
[2019-06-20] MEDS ORDERED: POLYETHYLENE (MIRALAX) 17 GM PACK PO PRN (15:07)
[2019-06-20 15:47] LABS: Base Excess ABG -6.2 mEq/L (-9-1.8); HCO3 ABG 21 mmol/L (19-24); Oxygen Saturation ABG 92.3 % (90-95); PCO2 ABG 47 mmHg (35-46); PO2 ABG 73 mm/Hg (80-95); pH ABG 7.26 (7.35-7.45)
[2019-06-20 15:48] LABS: Allen Test Pos (Pos)
[2019-06-20] MEDS ORDERED: OXYCODONE HCL IR 5 MG TAB (IMMEDIATE RELEASE) PO PRN (16:45)
[2019-06-20] MEDS ORDERED: NON-FORMULARY MEDICATION (Acetaminophen 650 MG) PO PRN (16:45)
--- NOTE | 2019-06-20 17:27 | Critical Care Consultation ---
Date of Consultation June 20, 2019 Assessment & Plan (1) S/P admission to ICU (intensive care unit): ICU CONSULT NOTE FORMAT: Reason Critically Ill: 78-year-old female with multiple medical problems admitted with hypothermia, hypotension, hypoxemic and hypercarbic respiratory failure and renal insufficiency with lactic acidosis. Suspicion for possible pneumonia. Neuro - Awake and alert. Continue to monitor. No active issues Cardiac - History of diastolic dysfunction with preserved ejection fraction. Will need to monitor closely fluid status. Given lactic acidosis, she may need some additional fluid. We will pursue a trial of albumin support given her low albumin. BNP is elevated but will hold off on any diuresis until hemodynamic stability is achieved. History of A. fib. Continue anticoagulation for now. Respiratory - Patient demonstrates hypoxemic and hypercarbic acute on chronic respiratory failure. Repeat blood gas is warranted. She may benefit from noninvasive positive pressure ventilation. Her prior CT scan does demonstrate some evidence of mild interstitial lung disease which may be progressive. Hold off on any additional evaluation currently. She does have sleep disordered breathing and uses CPAP at night. GI - Keep n.p.o. for now. GI prophylaxis RENAL/LYTES - Acute renal failure: Possibly prerenal. Will check urine electrolytes and calculate fractional excretion of sodium. Check urine eosinophils. Will hold off on renal ultrasound at this point in time. Judicious fluid administration. If creatinine continues to worsen, low threshold for nephrology consultation. - No current issues. Limon catheter in place to monitor accurate I's and O's urine output ENDO - Glycemic control per protocol HEME - No acute issues. Mild anemia at baseline. No indication for transfusion currently. ID - Reported urinary tract infection although no bacteria identified on urinalysis. We will continue Rocephin for now. Lungs do appear abnormal on chest x-ray however white blood cell count is normal. LINES/IV ACCESS - Peripheral IVs DVT PROPHYLAXIS - Subcu heparin I have personally spent minutes of critical care time in the direct management of this patient. This is a life/limb threatening event. This includes time spent evaluating patient, direct bedside care, chart review, placing orders, interpretation of diagnostic studies, discussion with consultants, patient, and family members, as well as other required patient management activities. This time is exclusive of all separately billable procedures, and teaching time and separate from and in addition to any other critical care service time. Thank you for allowing us to participate in the care of this patient. Please refer to my attending physician's documentation for any further recommendations. (2) Hypothermia: (3) GARFIELD (acute kidney injury): (4) Hypercapnic respiratory failure: (5) Lactic acidosis: (6) Abnormal CT scan of lung: History of Present Illness Attending Physician: David Harvey MD History of Present Illness 78-year-old female with complicated past medical history including recent admission for shoulder infection. She presented to the emergency room today with complaints of feeling poorly. She was initially diagnosed with urosepsis and admitted to the hospitalist service however on the floor she is found to be hypothermic hypotensive with an increasing oxygen requirement which prompted transfer to the intensive care unit. I assessed the patient immediately on arrival to the intensive care unit. She is awake and alert and mentating appropriately. She is able to answer questions. Her blood pressure is normal. Heart rate is appropriate. She denies any chest pain or palpitations. She states she did have some abdominal pain and nausea yesterday but this is resolved. She did receive Rocephin in the emergency room. She does not report any muscle pain or joint discomfort. Allergies Allergy/AdvReac Type Severity Reaction Status Date / Time adhesive Allergy Mild RASH & Verified 06/20/19 13:23 BLISTERS NSAIDS (Non-Steroidal AdvReac Intermediate ADVISED TO Verified 06/20/19 13:23 Anti-Inflamma AVOID DUE TO KIDNEY DISEASE morphine AdvReac Mild "SENSITIVITY"- Verified 06/20/19 13:23 "go crazy" Home Medications Home Medications Medication Instructions Recorded Confirmed Type lactobacillus combination no.4 3 3,000 mmu cells PO DAILY #30 cap 04/13/19 06/20/19 Rx billion cell capsule PreserVision AREDS-2 1 tab PO BID 04/15/19 06/20/19 History aspirin 81 mg PO 3XWK 04/15/19 06/20/19 History cholecalciferol (vitamin D3) 1,000 unit PO DAILY 04/15/19 06/20/19 History cyanocobalamin (vitamin B-12) 500 mcg PO DAILY 04/15/19 06/20/19 History ferrous sulfate 325 mg PO DAILY 04/15/19 06/20/19 History fluticasone propionate 2 spray INTRANASAL DAILY 04/15/19 06/20/19 History folic acid 1 mg PO DAILY 04/15/19 06/20/19 History metoprolol succinate 37.5 mg PO BID 04/15/19 06/20/19 History montelukast 10 mg PO PM 04/15/19 06/20/19 History nitroglycerin 0.4 mg SUBLINGUAL Q5M PRN 04/15/19 06/20/19 History nystatin See Rx Instructions .ROUTE .COMPLEX 04/15/19 06/20/19 History warfarin 2 mg PO 4XWK 04/15/19 06/20/19 History warfarin 4 mg PO 3XWK 04/15/19 06/20/19 History Lactobacillus acidoph-L.bulgar 4 tab PO HS #30 tab 04/16/19 06/20/19 Rx [Floranex] furosemide 40 mg PO BID #0 tab 04/16/19 06/20/19 Rx oxycodone 5 mg PO Q4 PRN #30 tab 04/16/19 06/20/19 Rx sennosides [Senokot] 17.2 mg PO HS #20 tab 04/16/19 06/20/19 Rx acetaminophen 325 mg capsule 650 mg PO Q4H PRN cap 04/21/19 06/20/19 History levofloxacin 500 mg tablet 500 mg PO DAILY #30 tab 05/21/19 06/20/19 Rx ranitidine HCl 150 mg PO BID 06/20/19 06/20/19 History Patient History Medical History Pulmonary congestion (Acute) Paroxysmal atrial fibrillation (Acute) Pacemaker (Acute) Obstructive sleep apnea of adult (Acute) GERD without esophagitis (Acute) Diabetes mellitus with kidney disease (Acute) Anticoagulant long-term use (Acute) Atrial fibrillation Paroxysmal, then persistent with difficult to control rhythm and rate, ultimately requiring AV junction ablation and insertion of dual-chamber BiV pacer 05/2016 CAD (coronary artery disease) s/p MO and cath 2012, not amenable to PCI CHF (congestive heart failure) Right sided 2/2 elevated pulmonary pressures/sarcoidosis CKD (chronic kidney disease) stage 3, GFR 30-59 ml/min Cough Currently with exacerbation of underlying pulm issues. On Doxy with recent Prednisone course. Pre-op CXR 03/07 showed no acute disease. Seen by PCP 03/14 for f/u-- "cough appears much improved." GERD (gastroesophageal reflux disease) H/O acute myocardial infarction 2012 HTN (hypertension) History of diabetes mellitus, type II Diet controlled Hypercalcemia Hyperlipidemia HISTORY Hyponatremia Obesity Obstructive sleep apnea on CPAP On home oxygen therapy 2/2 SARCOIDOSIS. O2 AT 2L PRN Pulmonary hypertension Sarcoidosis pulmonary and ocular involvement Spinal stenosis Surgical History Status post reverse total arthroplasty of right shoulder Fusion of spine T12-L5 (~2013) H/O cardiac radiofrequency ablation 2015 H/O tubal ligation History of cardiac cath 2013 History of carpal tunnel release BILATERAL History of colonoscopy History of repair of rotator cuff RT SHOULDER S/P cardiac pacemaker procedure [employer] DEVICE/DR. RIDLEY CHECKS DEVICE APT 03/10/19 S/P rotator cuff repair 2012, complicated by post-op embolic MO, thrombus observed Status post reverse arthroplasty of left shoulder 03/20/1919 Grade 1 view Mac 3 blade Total knee replacement status R knee (TOTAL OF 8 SURGERIES) Family History Grandfather No problems noted. Grandmother No problems noted. Aunt Family history of diabetes mellitus Grandmother (Paternal) Family history of diabetes mellitus Grandfather (Paternal) Family history of diabetes mellitus Social History Preferred Language: Dutch Communication Ability: Effective Visual Impairment: No Limitations Final Inspector Paper Required: No Beliefs That Will Affect Care: None marital status: / Current Living Situation: Alone Feels Safe at Home: Yes Smoking Status: Never smoker Second Hand Exposure: Yes ; Hx Alcohol Use: No Hx Substance Use: No Review of Systems Review of Systems: 12 point review of systems attempted to be completed with the patient however limited due to urgency of medical evaluation Physical Exam Physical Exam: Patient is morbidly obese. This limits the sensitivity of physical exam Constitutional: No obvious distress Neck: Unable to assess JVD or lymphadenopathy due to body habitus Respiratory: normal respiratory effort, lungs clear to auscultation Cardiovascular: RRR, no murmur, no edema Gastrointestinal (Abdomen): normal bowel sounds, soft, nontender, no hepatosplenomegaly Skin: Some mottling noted on the arms and legs Results & Data Vital Signs (Past 12 Hours) Vital Signs Temp Pulse Pulse Resp BP BP Pulse Ox 06/20/19 17:02 60 18 108/58 L 88 L 06/20/19 16:52 32.9 C L 61 24 99/48 L 73 L 06/20/19 16:30 65 18 88/56 L 90 06/20/19 14:16 60 22 113/65 06/20/19 13:05 66 22 96/74 L 06/20/19 12:40 60 17 06/20/19 12:30 60 17 64/35 L 06/20/19 12:24 61 23 62/36 L 06/20/19 12:20 61 20 06/20/19 12:10 60 19 06/20/19 12:00 60 22 06/20/19 11:50 60 20 06/20/19 11:40 60 20 06/20/19 11:35 36.6 C 65 20 80/53 L 82 L 06/20/19 11:31 68 20 67/46 L 06/20/19 11:30 66 21 06/20/19 11:20 88 19 06/20/19 11:17 67 23 06/20/19 11:10 60 19 80/47 L Laboratory Results 06/20/19 11:40 06/20/19 11:40 Diagnostic Findings Chest x-ray independently reviewed XR chest 1V portable CLINICAL HISTORY: weakness COMPARISON STUDY: Chest CT August 23, 2018. Chest radiograph April 13, 2019. FINDINGS: Bilateral shoulder arthroplasties, lumbar spine fusion hardware and biventricular left subclavian pacer are in place. Elevation of the right hemidiaphragm is unchanged. There are suspected trace bilateral pleural effusion s. Interstitial thickening and mild bilateral opacities are noted. Findings have improved since exam of April 13, 2019. There is no pneumothorax. IMPRESSION: 1. Mild interstitial thickening and bilateral opacities which have improved since exam of April 13, 2019. 2. Suspected trace bilateral pleural effusions. PG Care Time/CCT Total # of Minutes Spent Total Time Spent with Patient: Total time spent is greater than 50% in coordination of care (as documented) at patient's floor/unit and/or counseling patient: 47 minutes critical care time to this point
[2019-06-20] MEDS ORDERED: ALBUMIN 25% 50 ML IV ONE (17:41)
[2019-06-20 17:49] LABS: Appearance Urine Turbid (Clear); Bacteria Urine Automated Negative (Negative); Bilirubin Urine Negative (Negative); Blood Urine Negative (Negative); Color Urine Dark Yellow; Epithelial Cell Urine Auto 20-30 /lpf (0-5); Glucose Urine UA Negative (Negative); Ketones Urine Negative (Negative); Leukocyte Esterase Urine Trace (Negative); Nitrite Urine Negative (Negative); Protein Urine Negative (Negative); RBC Urine Automated 0-4 /hpf (0-4); Specific Gravity Urine 1.019 (1.000-1.030); Urobilinogen Urine Negative (Negative)
[2019-06-20] MEDS ORDERED: SODIUM BICARB 8.4% INJ 50 MEQ/50 ML SYR IV STA (17:52)
[2019-06-20] MEDS: SODIUM CHLORIDE 0.9% 500 ML IV SCH (17:57)
[2019-06-20] MEDS ORDERED: cefTRIAXone SODIUM 2,000 MG in DEXTROSE 5% 50 ML IV SCH (18:00)
[2019-06-20 18:03] LABS: iSTAT Allen Test Pass; iSTAT Art Bld Gas pCO2 Correct 43 mmHg (35-46); iSTAT Art Bld Gas pH Corrected 7.315 (7.35-7.45); iSTAT Arterial Blood Gas HCO3 22 meg/L (19-24); iSTAT Arterial Blood Gas pCO2 44 mmHg (35-46); iSTAT Arterial Blood Gas pH 7.31 (7.35-7.45); iSTAT Carbon Dioxide 23 mEq/l (24-31); iSTAT FiO2 100 %; iSTAT Hematocrit 36 % (37-47); iSTAT Hemoglobin 12.2 g/dl (12.0-16.0); iSTAT Potassium 4.8 mEq/L (3.3-5.0); iSTAT Site R Brachial; iSTAT Sodium 135 mEq/L (135-144)
--- NOTE | 2019-06-20 18:10 | Emergency Department Note ---
Entered by Amy Taylor acting as a scribe for Nazario Olea MD History of Present Illness General Chief complaint: Illness Stated complaint: nausea/dizzy Source: patient Mode of arrival: wheelchair Limitations: no limitations History of Present Illness Onset (ago): day(s) 4 Location: head Radiation: non-radiation Pain Consistency: + constant Relieved By: + none Exacerbated By: + movement and + other (standing up) Associated symptoms: + loss of appetite, + nausea/vomiting and + weakness; no chest pain and no fever/chills Treatments prior to arrival: none The patient is a 78 year old female who presents to the ED with complaints of dizziness. She complains of feeling lightheaded and dizzy especially with m ovement and standing up. She states she has been nauseous and fatigued for the past 4 days. She has been vomiting and states she has not been eating due to "not having an appetite". She last vomited yesterday. She has been trying to drink fluids. She denies any recent fevers. She denies any chest pain or abdominal pain. She has a decubitus wound in the buttock area and has been following with the the wound care people at her [facility]. The patient states she did pass out about 6 weeks ago but not recently. Home Medications Home Medications Medication Instructions Recorded Confirmed Type lactobacillus combination no.4 3 3,000 mmu cells PO DAILY #30 cap 04/13/19 06/20/19 Rx billion cell capsule PreserVision AREDS-2 1 tab PO BID 04/15/19 06/20/19 History aspirin 81 mg PO 3XWK 04/15/19 06/20/19 History cholecalciferol (vitamin D3) 1,000 unit PO DAILY 04/15/19 06/20/19 History cyanocobalamin (vitamin B-12) 500 mcg PO DAILY 04/15/19 06/20/19 History ferrous sulfate 325 mg PO DAILY 04/15/19 06/20/19 History fluticasone propionate 2 spray INTRANASAL DAILY 04/15/19 06/20/19 History folic acid 1 mg PO DAILY 04/15/19 06/20/19 History metoprolol succinate 37.5 mg PO BID 04/15/19 06/20/19 History montelukast 10 mg PO PM 04/15/19 06/20/19 History nitroglycerin 0.4 mg SUBLINGUAL Q5M PRN 04/15/19 06/20/19 History nystatin See Rx Instructions .ROUTE .COMPLEX 04/15/19 06/20/19 History warfarin 2 mg PO 4XWK 04/15/19 06/20/19 History warfarin 4 mg PO 3XWK 04/15/19 06/20/19 History Lactobacillus acidoph-L.bulgar 4 tab PO HS #30 tab 04/16/19 06/20/19 Rx [Floranex] furosemide 40 mg PO BID #0 tab 04/16/19 06/20/19 Rx oxycodone 5 mg PO Q4 PRN #30 tab 04/16/19 06/20/19 Rx sennosides [Senokot] 17.2 mg PO HS #20 tab 04/16/19 06/20/19 Rx acetaminophen 325 mg capsule 650 mg PO Q4H PRN cap 04/21/19 06/20/19 History levofloxacin 500 mg tablet 500 mg PO DAILY #30 tab 05/21/19 06/20/19 Rx ranitidine HCl 150 mg PO BID 06/20/19 06/20/19 History Allergies Allergy/AdvReac Type Severity Reaction Status Date / Time adhesive Allergy Mild RASH & Verified 06/20/19 13:23 BLISTERS NSAIDS (Non-Steroidal AdvReac Intermediate ADVISED TO Verified 06/20/19 13:23 Anti-Inflamma AVOID DUE TO KIDNEY DISEASE morphine AdvReac Mild "SENSITIVITY"- Verified 06/20/19 13:23 "go crazy" Past Med/Surg History Medical History Pulmonary congestion (Acute) Paroxysmal atrial fibrillation (Acute) Pacemaker (Acute) Obstructive sleep apnea of adult (Acute) GERD without esophagitis (Acute) Diabetes mellitus with kidney disease (Acute) Anticoagulant long-term use (Acute) Atrial fibrillation Paroxysmal, then persistent with difficult to control rhythm and rate, ultimately requiring AV junction ablation and insertion of dual-chamber BiV pacer 05/2016 CAD (coronary artery disease) s/p MA and cath 2012, not amenable to PCI CHF (congestive heart failure) Right sided 2/2 elevated pulmonary pressures/sarcoidosis CKD (chronic kidney disease) stage 3, GFR 30-59 ml/min Cough Currently with exacerbation of underlying pulm issues. On Doxy with recent Prednisone course. Pre-op CXR 03/07 showed no acute disease. Seen by PCP 03/14 for f/u-- "cough appears much improved." GERD (gastroesophageal reflux disease) H/O acute myocardial infarction 2012 HTN (hypertension) History of diabetes mellitus, type II Diet controlled Hypercalcemia Hyperlipidemia HISTORY Hyponatremia Obesity Obstructive sleep apnea on CPAP On home oxygen therapy 2/2 SARCOIDOSIS. O2 AT 2L PRN Pulmonary hypertension Sarcoidosis pulmonary and ocular involvement Spinal stenosis Surgical History Status post reverse total arthroplasty of right shoulder Fusion of spine T12-L5 (~2013) H/O cardiac radiofrequency ablation 2015 H/O tubal ligation History of cardiac cath 2012 History of carpal tunnel release BILATERAL History of colonoscopy History of repair of rotator cuff RT SHOULDER S/P cardiac pacemaker procedure [employer] DEVICE/DR. RIDLEY CHECKS DEVICE APT 03/10/19 S/P rotator cuff repair 2012, complicated by post-op embolic MA, thrombus observed Status post reverse arthroplasty of left shoulder 03/20/1919 Grade 1 view Mac 3 blade Total knee replacement status R knee (TOTAL OF 8 SURGERIES) Family History Grandfather No problems noted. Grandmother No problems noted. Aunt Family history of diabetes mellitus Grandmother (Paternal) Family history of diabetes mellitus Grandfather (Paternal) Family history of diabetes mellitus Social History Preferred Language: Ghanaian Communication Ability: Effective Visual Impairment: No Limitations Insurance Office Manager Required: No Beliefs That Will Affect Care: None marital status: / Current Living Situation: Alone Feels Safe at Home: Yes Safety Concerns: Feels Safe At This Time Smoking Status: Never smoker Second Hand Exposure: Yes ; Hx Alcohol Use: No Hx Substance Use: No Review of Systems See HPI for pertinent positives & negatives. and A total of 10 systems reviewed and were otherwise negative Physical Exam Vital Signs Vital Signs - 24 hr 06/20/19 11:10 06/20/19 11:17 06/20/19 11:20 Temperature Temperature Source Sepsis Recent Fever Within 48 Hours Sepsis Action Taken by Nursing Pulse Rate 60 67 88 Pulse Rate [Apical] Pulse Rate from SpO2 Sensor Respiratory Rate 19 23 19 Blood Pressure 80/47 L Blood Pressure [Left Arm] Blood Pressure Mean 58 Blood Pressure Mean [Left Arm] Pulse Oximetry Oxygen Delivery Method Oxygen Flow Rate 06/20/19 11:30 06/20/19 11:31 06/20/19 11:35 Temperature 36.6 C Temperature Source Oral Sepsis Recent Fever Within 48 Hours No Sepsis Action Taken by Nursing No Action Required Pulse Rate 66 68 65 Pulse Rate [Apical] Pulse Rate from SpO2 Sensor 62 Respiratory Rate 21 20 20 Blood Pressure 67/46 L 80/53 L Blood Pressure [Left Arm] Blood Pressure Mean 53 62 Blood Pressure Mean [Left Arm] Pulse Oximetry 82 L Oxygen Delivery Method Room Air Oxygen Flow Rate 06/20/19 11:40 06/20/19 11:50 06/20/19 12:00 Temperature Temperature Source Sepsis Recent Fever Within 48 Hours Sepsis Action Taken by Nursing Pulse Rate 60 60 60 Pulse Rate [Apical] Pulse Rate from SpO2 Sensor 60 Respiratory Rate 20 20 22 Blood Pressure Blood Pressure [Left Arm] Blood Pressure Mean Blood Pressure Mean [Left Arm] Pulse Oximetry Oxygen Delivery Method Oxygen Flow Rate 06/20/19 12:10 06/20/19 12:20 06/20/19 12:24 Temperature Temperature Source Sepsis Recent Fever Within 48 Hours Sepsis Action Taken by Nursing Pulse Rate 60 61 61 Pulse Rate [Apical] Pulse Rate from SpO2 Sensor 60 61 61 Respiratory Rate 19 20 23 Blood Pressure 62/36 L Blood Pressure [Left Arm] Blood Pressure Mean 44 Blood Pressure Mean [Left Arm] Pulse Oximetry Oxygen Delivery Method Oxygen Flow Rate 06/20/19 12:30 06/20/19 12:40 06/20/19 13:05 Temperature Temperature Source Sepsis Recent Fever Within 48 Hours Sepsis Action Taken by Nursing Pulse Rate 60 60 Pulse Rate [Apical] 66 Pulse Rate from SpO2 Sensor 60 60 Respiratory Rate 17 17 22 Blood Pressure 64/35 L Blood Pressure [Left Arm] 96/74 L Blood Pressure Mean 44 Blood Pressure Mean [Left Arm] 81 Pulse Oximetry Oxygen Delivery Method Oxygen Flow Rate 06/20/19 14:16 Temperature Temperature Source Sepsis Recent Fever Within 48 Hours Sepsis Action Taken by Nursing Pulse Rate Pulse Rate [Apical] 60 Pulse Rate from SpO2 Sensor Respiratory Rate 22 Blood Pressure Blood Pressure [Left Arm] 113/65 Blood Pressure Mean Blood Pressure Mean [Left Arm] 81 Pulse Oximetry Oxygen Delivery Method Oxymask Oxygen Flow Rate 6 Constitutional: Vital signs reviewed. Eyes: Pupils are equal round reactive to light. Conjunctiva are noninjected. ENT: Pharynx is clear without erythema or exudate. Mucous membranes are dry. Neck supple without meningeal signs. Respiratory: Clear to auscultation bilaterally. Breath sounds are equal bilaterally. Cardiovascular: Regular rate and rhythm. No rubs or gallops. GI: Soft, nondistended and nontender. Bowel sounds are present. Musculoskeletal: Venous stasis discoloration to lower legs bilaterally, wound to anterior right jarquin, large sacral decubitus wound to right buttock, no drainage, no surrounding cellulitis. Integumentary: No cyanosis. Neurological: The patient is awake and alert. No focal deficits. Psychiatric: Normal affect. Course 1142: The patient was evaluated in room C5 and a complete history and physical were performed. 1220: I reevaluated the patient. She is still hypotensive with a Potassium of 3. 1345: I discussed the patients case with Dr. Harvey, [facility]. The patient will be further evaluated. 1310: Her glucose is now in the 130s after Dextrose. An ABG was drawn and she is getting her 2nd liter. 1418: Pressure is 113/60. Admitting physician is evaluating. Consultations Consultation #1: I discussed the patients case with Dr. Harvey, [facility]. The patient will be further evaluated. Time: 13:45 Administered Medications Sodium Chloride (Nss) 500 mls @ 80 mls/hr IV .Q6H15M [facility] Stop: 07/20/19 16:29 Last Admin: 06/20/19 17:57 Dose: 80 mls/hr Documented by: [id number] Ceftriaxone Sodium 2,000 mg/ (Dextrose) 70 mls @ 100 mls/hr IV Q24H [facility]; Protocol Stop: 06/22/19 17:59 Last Admin: 06/20/19 17:57 Dose: 100 mls/hr Documented by: [id number] Albumin Human (Albumin 25%) 50 mls @ 50 mls/hr IV ONE ONE Stop: 06/20/19 18:40 Last Admin: 06/20/19 17:57 Dose: 50 mls/hr Documented by: [id number] Discontinued Medications Dextrose (Dextrose 50%) 50 ml IV NOW ONE Stop: 06/20/19 13:41 Last Admin: 06/20/19 13:49 Dose: 50 ml Documented by: [id number] Sodium Chloride (Nss 1000ml) 1,000 mls @ 999 mls/hr IV .Q1H1M [facility] Stop: 06/20/19 13:00 Last Infusion: 06/20/19 12:58 Dose: 0 mls/hr Documented by: [id number] Admin: 06/20/19 11:57 Dose: 999 mls/hr Documented by: [id number] Sodium Bicarbonate (Sodium Bicarbonate 8.4%) 50 meq IV NOW STA Stop: 06/20/19 17:53 Last Admin: 06/20/19 17:59 Dose: 50 meq Documented by: [id number] Medical Decision Making Differential Diagnosis Differential diagnoses considered include dehydration, malnutrition, anemia, infection, UTI, pneumonia and cellulitis. Medical Records Attestation: I reviewed the patient's medical records. I did perform a limited focused review of portions of the patient's old chart on the electronic medical record. The patient had a left shoulder I&D of an infected wound on 04/08/2019. Home Medications Current Medication List: was personally reviewed by me Laboratory Data Attestation: I reviewed the patient's lab results. Result diagrams: 06/20/19 11:40 06/20/19 11:40 Lab Results 06/20/19 06/20/19 06/20/19 Range/Units 11:40 11:40 11:40 WBC 7.08 (4.8-10.8) K/uL RBC 3.63 L (4.2-5.4) M/uL Hgb 11.5 L (12.0-16.0) g/dL POC Hgb (12.0-16.0) g/dl Hct 34.6 L (37-47) % POC Hct (37-47) % MCV 95.3 (80-100) fL MCH 31.7 (25-34) pg MCHC 33.2 (32-36) g/dL RDW Std Deviation 65.1 H (36.4-46.3) fL RDW Coeff of Demetrio 20.1 H (11.5-14.5) % Plt Count 112 L (130-400) K/uL MPV 12.0 H (7.4-10.4) fL Immature Gran % (Auto) 0.1 % Neut % (Auto) 64.0 % Lymph % (Auto) 15.8 % Russell % (Auto) 16.2 % Eos % (Auto) 3.8 % Baso % (Auto) 0.1 % Immature Gran # (Auto) 0.01 (0.00-0.02) K/uL Neut # (Auto) 4.52 (1.4-6.5) K/uL Lymph # (Auto) 1.12 L (1.2-3.4) K/uL Russell # (Auto) 1.15 H (0.11-0.59) K/uL Eos # (Auto) 0.27 (0-0.5) K/uL Baso # (Auto) 0.01 (0-0.2) K/uL Platelet Estimate Decreased L (Normal) Giant Platelets 1+ Anisocytosis Present Echinocytes 1+ ABG pH ABG pCO2 ABG pO2 ABG HCO3 ABG O2 Saturation ABG Base Excess Hamilton Test Barometric Pressure Oxygen Given POC Sodium (135-144) mEq/L Sodium 135 L (136-145) mmol/L POC Potassium (3.3-5.0) mEq/L Potassium 4.8 (3.5-5.1) mmol/L POC Chloride (101-112) mEq/L Chloride 103 (98-107) mmol/L Carbon Dioxide 23 (21-32) mmol/L POC Total CO2 (24-31) mEq/l Anion Gap 10.0 (3-11) POC Anion Gap (16-25) mmol/L POC BUN (7-18) mg/dl BUN 77 H (7-18) mg/dl Creatinine 2.71 H (0.6-1.2) mg/dl POC Creatinine (0.6-1.3) mg/dl Est Cr Clr Drug Dosing 18.3 ml/min Est GFR ( Amer) 18.9 Est GFR (Non-Af Amer) 16.3 BUN/Creatinine Ratio 28.2 H (10-20) Glucose 68 L (70-99) mg/dl POC Glucose (70-99) POC Glucose (other) (70-99) mg/dl POC Lactic Acid Tyler (0.90-1.70) mmol/L Calcium 10.6 H (8.5-10.1) mg/dl POC Ioniz Calcium Yanet (1.12-1.32) mmol/l Magnesium 2.7 H (1.8-2.4) mg/dl Total Bilirubin 1.4 H (0.2-1) mg/dl AST 26 (15-37) U/L ALT 10 L (12-78) U/L Alkaline Phosphatase 137 H (45-117) U/L Troponin I < 0.015 (0-0.045) ng/ml NT-Pro-B Natriuret Pep 5393 H (0-1800) pg/ml Total Protein 7.3 (6.4-8.2) gm/dl Albumin 2.5 L (3.4-5.0) gm/dl Globulin 4.8 H (2.5-4.0) gm/dl Albumin/Globulin Ratio 0.5 L (0.9-2) TSH 6.990 H (0.300-4.500) uIu/ml Free T4 1.37 (0.8-1.6) ng/dl 06/20/19 06/20/19 06/20/19 Range/Units 12:08 12:09 13:57 WBC (4.8-10.8) K/uL RBC (4.2-5.4) M/uL Hgb (12.0-16.0) g/dL POC Hgb 12.9 (12.0-16.0) g/dl Hct (37-47) % POC Hct 38 (37-47) % MCV (80-100) fL MCH (25-34) pg MCHC (32-36) g/dL RDW Std Deviation (36.4-46.3) fL RDW Coeff of Demetrio (11.5-14.5) % Plt Count (130-400) K/uL MPV (7.4-10.4) fL Immature Gran % (Auto) % Neut % (Auto) % Lymph % (Auto) % Russell % (Auto) % Eos % (Auto) % Baso % (Auto) % Immature Gran # (Auto) (0.00-0.02) K/uL Neut # (Auto) (1.4-6.5) K/uL Lymph # (Auto) (1.2-3.4) K/uL Russell # (Auto) (0.11-0.59) K/uL Eos # (Auto) (0-0.5) K/uL Baso # (Auto) (0-0.2) K/uL Platelet Estimate (Normal) Giant Platelets Anisocytosis Echinocytes ABG pH Cancelled ABG pCO2 Cancelled ABG pO2 Cancelled ABG HCO3 Cancelled ABG O2 Saturation Cancelled ABG Base Excess Cancelled Hamilton Test Cancelled Barometric Pressure Cancelled Oxygen Given Cancelled POC Sodium 135 (135-144) mEq/L Sodium (136-145) mmol/L POC Potassium 5.3 H (3.3-5.0) mEq/L Potassium (3.5-5.1) mmol/L POC Chloride 101 (101-112) mEq/L Chloride (98-107) mmol/L Carbon Dioxide (21-32) mmol/L POC Total CO2 23 L (24-31) mEq/l Anion Gap (3-11) POC Anion Gap 17.0 (16-25) mmol/L POC BUN 69 H (7-18) mg/dl BUN (7-18) mg/dl Creatinine (0.6-1.2) mg/dl POC Creatinine 3.0 H (0.6-1.3) mg/dl Est Cr Clr Drug Dosing ml/min Est GFR ( Amer) Est GFR (Non-Af Amer) BUN/Creatinine Ratio (10-20) Glucose (70-99) mg/dl POC Glucose (70-99) POC Glucose (other) 69 L* (70-99) mg/dl POC Lactic Acid Tyler 2.64 H (0.90-1.70) mmol/L Calcium (8.5-10.1) mg/dl POC Ioniz Calcium Yanet 1.25 (1.12-1.32) mmol/l Magnesium (1.8-2.4) mg/dl Total Bilirubin (0.2-1) mg/dl AST (15-37) U/L ALT (12-78) U/L Alkaline Phosphatase (45-117) U/L Troponin I (0-0.045) ng/ml NT-Pro-B Natriuret Pep (0-1800) pg/ml Total Protein (6.4-8.2) gm/dl Albumin (3.4-5.0) gm/dl Globulin (2.5-4.0) gm/dl Albumin/Globulin Ratio (0.9-2) TSH (0.300-4.500) uIu/ml Free T4 (0.8-1.6) ng/dl 06/20/19 Range/Units 14:10 WBC (4.8-10.8) K/uL RBC (4.2-5.4) M/uL Hgb (12.0-16.0) g/dL POC Hgb (12.0-16.0) g/dl Hct (37-47) % POC Hct (37-47) % MCV (80-100) fL MCH (25-34) pg MCHC (32-36) g/dL RDW Std Deviation (36.4-46.3) fL RDW Coeff of Demetrio (11.5-14.5) % Plt Count (130-400) K/uL MPV (7.4-10.4) fL Immature Gran % (Auto) % Neut % (Auto) % Lymph % (Auto) % Russell % (Auto) % Eos % (Auto) % Baso % (Auto) % Immature Gran # (Auto) (0.00-0.02) K/uL Neut # (Auto) (1.4-6.5) K/uL Lymph # (Auto) (1.2-3.4) K/uL Russell # (Auto) (0.11-0.59) K/uL Eos # (Auto) (0-0.5) K/uL Baso # (Auto) (0-0.2) K/uL Platelet Estimate (Normal) Giant Platelets Anisocytosis Echinocytes ABG pH ABG pCO2 ABG pO2 ABG HCO3 ABG O2 Saturation ABG Base Excess Hamilton Test Barometric Pressure Oxygen Given POC Sodium (135-144) mEq/L Sodium (136-145) mmol/L POC Potassium (3.3-5.0) mEq/L Potassium (3.5-5.1) mmol/L POC Chloride (101-112) mEq/L Chloride (98-107) mmol/L Carbon Dioxide (21-32) mmol/L POC Total CO2 (24-31) mEq/l Anion Gap (3-11) POC Anion Gap (16-25) mmol/L POC BUN (7-18) mg/dl BUN (7-18) mg/dl Creatinine (0.6-1.2) mg/dl POC Creatinine (0.6-1.3) mg/dl Est Cr Clr Drug Dosing ml/min Est GFR ( Amer) Est GFR (Non-Af Amer) BUN/Creatinine Ratio (10-20) Glucose (70-99) mg/dl POC Glucose 135 H (70-99) POC Glucose (other) (70-99) mg/dl POC Lactic Acid Tyler (0.90-1.70) mmol/L Calcium (8.5-10.1) mg/dl POC Ioniz Calcium Yanet (1.12-1.32) mmol/l Magnesium (1.8-2.4) mg/dl Total Bilirubin (0.2-1) mg/dl AST (15-37) U/L ALT (12-78) U/L Alkaline Phosphatase (45-117) U/L Troponin I (0-0.045) ng/ml NT-Pro-B Natriuret Pep (0-1800) pg/ml Total Protein (6.4-8.2) gm/dl Albumin (3.4-5.0) gm/dl Globulin (2.5-4.0) gm/dl Albumin/Globulin Ratio (0.9-2) TSH (0.300-4.500) uIu/ml Free T4 (0.8-1.6) ng/dl Imaging Data Radiologist's Impression: Radiology results as stated below per my review and the radiologist's interpretation: XR chest 1V portable CLINICAL HISTORY: weakness COMPARISON STUDY: Chest CT August 23, 2018. Chest radiograph April 13, 2019. FINDINGS: Bilateral shoulder arthroplasties, lumbar spine fusion hardware and biventricular left subclavian pacer are in place. Elevation of the right hemidiaphragm is unchanged. There are suspected trace bilateral pleural effusions. Interstitial thickening and mild bilateral opacities are noted. Findings have improved since exam of April 13, 2019. There is no pneumothorax. IMPRESSION: 1. Mild interstitial thickening and bilateral opacities which have improved since exam of April 13, 2019. 2. Suspected trace bilateral pleural effusions. Electronically signed by: Tucker Rosenbaum M.D. 06/20/2019 12:29 PM ECG Data Attestation: I personally reviewed and interpreted this ECG as follows: Indication: other (hypotension) Rate (beats per minute): 60 Rhythm: other (paced rhythm) Findings: + other (QRS is 152); no PVC Blood Pressure Blood Pressure Findings: Low blood pressure MDM Narrative I did evaluate the patient as noted above. The patient is presenting with generalized weakness and hypotension. IV access was established. The patient was placed on a continuous diagnostic cardiac sonographer. She was given a liter bolus of normal saline. She was placed on supplemental oxygen. I did order and personally review the patient's 12-lead EKG as described above. Twelve-lead EKG does not demonstrate any acute ischemia. She has a ventricular paced rhythm. I did order and personally reviewed the images of the patient's chest x-ray as described above. Chest x-ray does not show signs of pneumonia. She does have trace bilateral pleural effusions. I did order a urine analysis. I did order and review the patient's blood work as noted in the electronic medical record. Stat labs demonstrated a creatinine of 3 with hyperkalemia. The potassium was likely hemolyzed. Repeat potassium in the lab was normal. I did reassess the patient multiple times. Her blood pressure improved but then got worse again with a systolic in the 60s and so she was given another liter normal saline IV. Her blood pressure then improved. O2 saturations have been low on supplemental oxygen but the patient denies having any shortness of breath. I did order an ABG which is pending. I did recommend hospitalization for further care and evaluation. I did discuss case with the hospitalist and case management director. Impression & Plan Hypotension, Hypoxia, GARFIELD (acute kidney injury), Anemia, Hypoglycemia, Sacral decubitus ulcer Critical Care Time Critical Care Time: Yes Total Critical Care Time: 40 I have personally spent 40 minutes of critical care time in the direct management of this patient. This includes bedside care, interpretation of diagnostic studies, and testing, discussion with consultants, patient, and family members, and other required patient management activities. This 40 minutes is in excess of all separately billable procedures. Discharge Plan Visit Data *Final* Discharge Date/Time: 06/20/19 16:30 Chief Complaint: Illness Stated Complaint: nausea/dizzy ED Provider: Nazario Olea Discharge Problem: Hypotension, Hypoxia, GARFIELD (acute kidney injury), Anemia, Hypoglycemia, Sacral decubitus ulcer Patient Disposition: Admitted As Inpatient Discharge Instructions Interventions: ED Discharge Assessment Last Done: 06/20/19 16:30 The scribe's documentation has been prepared under my direction and personally reviewed by me in its entirety. I confirm that the note above accurately reflects all work, treatment, procedures, and medical decision making performed by me.
[2019-06-20 18:20] LABS: INR 3.4 (0.9-1.1); Prothrombin Time 32.3 Seconds (9.0-12.0)
[2019-06-20] MEDS: SENNA 8.6 MG TAB PO SCH (19:26)
[2019-06-20] MEDS: MONTELUKAST SODIUM 10 MG TABLET PO SCH (19:30)
[2019-06-20] MEDS: LACTOBACILLUS ACIDOPHILUS (FLORANEX) TAB PO SCH (19:30)
[2019-06-20] MEDS: NYSTATIN POWDER 15GM BTL EXT SCH (19:30)
--- NOTE | 2019-06-20 20:05 | History & Physical Report ---
Date of Service June 20, 2019 Assessment & Plan (1) Sepsis: Admit patient to the ICU for severe sepsis on telemetry Vital signs every 4 hours per ICU team Keep n.p.o. for now Started ceftriaxone 2 g IV CBC CMP lactic acid BNP daily Follow-up blood culture and urine culture Replenish electrolytes as needed DVT prophylaxis patient is on warfarin for A. fib's Full code Present on Admission?: Yes (2) Hypotension: Hold antihypertensives IV fluid hydration with normal saline Hold furosemide Hold metoprolol Continue monitoring blood pressure as per ICU team - Present on Admission?: Yes (3) Hypothermia: As the above Present on Admission?: Yes (4) Lactic acidosis: Monitor lactic acid Resolved sepsis Present on Admission?: Yes (5) Sacral decubitus ulcer: Apparently patient has decubital ulcer for several months if not longer. Wound culture obtained. Present on Admission?: Yes (6) Hypoglycemia: On arrival to the emergency room patient glucose was only 69 patient was given D5 which improved her glucose. Hold hypoglycemic agents Accu-Cheks per ICU team Present on Admission?: Yes (7) GARFIELD (acute kidney injury): Creatinine 2.71 ,GFR 18.3 avoid nephrotoxic agents Present on Admission?: Yes (8) Hypoxia: Hypoxia and respiratory failure most likely due to ongoing pneumonia. Continue IV antibiotics ceftriaxone 2 g IV Follow-up on blood cultures and urine cultures. Present on Admission?: Yes (9) Acute on chronic diastolic heart failure: Strict in and out Since patient is hypotensive we will continue with fluid hydration Hold furosemide while patient hypotensive. Present on Admission?: Yes History of Present Illness BNP Chief Complaint: Generalized weakness Primary Care Provider: [facility] Patient is a 78 years old female with past medical history of of coronary- coronary artery disease hypertension, atrial fibrillation sleep apnea, congestive heart failure, type 2 diabetes mellitus, cellulitis of the left lower extremity with repair, shoulder joint replacement on the left, stage III chronic kidney disease presents to the emergency room with a complaint of feeling generalized weakness and shortness of breath, loss of appetite nausea vomiting. Patient reports no chest pain no fever chills. Patient says she especially fatigued in the past 4 days she has been vomiting and not being able to eat due to nausea. Patient has syncope approximately 6 weeks ago but nothing recently.. Patient denies gaining any weight. Patient said that she is not using oxygen at home but at this time she needs oxygen. Patient labs were reviewed 11 cell count,7.08 hemoglobin so, hematocrit 34.6, platelets 112, PT 32.3, INR 3.4, ABG pH 7.315, PCO2 47, P O2 73, HCO3 21, BUN 77, creatinine 2.71, GFR 18.3. Urine analysis: Urine appearance -turbid leukocyte esterase trace positive for epithelial cells. Chest x-rays are reviewed:1. Mild interstitial thickening and bilateral opacities which have improved since exam of April 13, 2019.2. Suspected trace bilateral pleural effusions. BNP of 5393, Albumin 2.5. EKG shows ventricular paced rhythm. Ventricular rate 60. QT 528. Patient patient received 2 L in the emergency room of normal saline which improved her hypotension and her blood pressure was 130/60. Decision was made to admit patient to PCU telemetry. Since patient became hypo-thermic and her temperature was of 32.9 decision was made to transfer patient to the ICU. Allergies Allergy/AdvReac Type Severity Reaction Status Date / Time adhesive Allergy Mild RASH & Verified 06/20/19 13:23 BLISTERS NSAIDS (Non-Steroidal AdvReac Intermediate ADVISED TO Verified 06/20/19 13:23 Anti-Inflamma AVOID DUE TO KIDNEY DISEASE morphine AdvReac Mild "SENSITIVITY"- Verified 06/20/19 13:23 "go crazy" Home Medications Home Medications Medication Instructions Recorded Confirmed Type lactobacillus combination no.4 3 3,000 mmu cells PO DAILY #30 cap 04/13/19 06/20/19 Rx billion cell capsule PreserVision AREDS-2 1 tab PO BID 04/15/19 06/20/19 History aspirin 81 mg PO 3XWK 04/15/19 06/20/19 History cholecalciferol (vitamin D3) 1,000 unit PO DAILY 04/15/19 06/20/19 History cyanocobalamin (vitamin B-12) 500 mcg PO DAILY 04/15/19 06/20/19 History ferrous sulfate 325 mg PO DAILY 04/15/19 06/20/19 History fluticasone propionate 2 spray INTRANASAL DAILY 04/15/19 06/20/19 History folic acid 1 mg PO DAILY 04/15/19 06/20/19 History metoprolol succinate 37.5 mg PO BID 04/15/19 06/20/19 History montelukast 10 mg PO PM 04/15/19 06/20/19 History nitroglycerin 0.4 mg SUBLINGUAL Q5M PRN 04/15/19 06/20/19 History nystatin See Rx Instructions .ROUTE .COMPLEX 04/15/19 06/20/19 History warfarin 2 mg PO 4XWK 04/15/19 06/20/19 History warfarin 4 mg PO 3XWK 04/15/19 06/20/19 History Lactobacillus acidoph-L.bulgar 4 tab PO HS #30 tab 04/16/19 06/20/19 Rx [Floranex] furosemide 40 mg PO BID #0 tab 04/16/19 06/20/19 Rx oxycodone 5 mg PO Q4 PRN #30 tab 04/16/19 06/20/19 Rx sennosides [Senokot] 17.2 mg PO HS #20 tab 04/16/19 06/20/19 Rx acetaminophen 325 mg capsule 650 mg PO Q4H PRN cap 04/21/19 06/20/19 History levofloxacin 500 mg tablet 500 mg PO DAILY #30 tab 05/21/19 06/20/19 Rx ranitidine HCl 150 mg PO BID 06/20/19 06/20/19 History Past Med/Surg History Medical History Pulmonary congestion (Acute) Paroxysmal atrial fibrillation (Acute) Pacemaker (Acute) Obstructive sleep apnea of adult (Acute) GERD without esophagitis (Acute) Diabetes mellitus with kidney disease (Acute) Anticoagulant long-term use (Acute) Atrial fibrillation Paroxysmal, then persistent with difficult to control rhythm and rate, ultimately requiring AV junction ablation and insertion of dual-chamber BiV pacer 05/2016 CAD (coronary artery disease) s/p AK and cath 2012, not amenable to PCI CHF (congestive heart failure) Right sided 2/2 elevated pulmonary pressures/sarcoidosis CKD (chronic kidney disease) stage 3, GFR 30-59 ml/min Cough Currently with exacerbation of underlying pulm issues. On Doxy with recent Prednisone course. Pre-op CXR 03/07 showed no acute disease. Seen by PCP 03/14 for f/u-- "cough appears much improved." GERD (gastroesophageal reflux disease) H/O acute myocardial infarction 2012 HTN (hypertension) History of diabetes mellitus, type II Diet controlled Hypercalcemia Hyperlipidemia HISTORY Hyponatremia Obesity Obstructive sleep apnea on CPAP On home oxygen therapy 2/2 SARCOIDOSIS. O2 AT 2L PRN Pulmonary hypertension Sarcoidosis pulmonary and ocular involvement Spinal stenosis Surgical History Status post reverse total arthroplasty of right shoulder Fusion of spine T12-L5 (~2013) H/O cardiac radiofrequency ablation 2015 H/O tubal ligation History of cardiac cath 2013 History of carpal tunnel release BILATERAL History of colonoscopy History of repair of rotator cuff RT SHOULDER S/P cardiac pacemaker procedure Tesseract [employer] DEVICE/DR. RIDLEY CHECKS DEVICE APT 03/10/19 S/P rotator cuff repair 2012, complicated by post-op embolic AK, thrombus observed Status post reverse arthroplasty of left shoulder 03/20/1919 Grade 1 view Mac 3 blade Total knee replacement status R knee (TOTAL OF 8 SURGERIES) Family History Grandfather No problems noted. Grandmother No problems noted. Aunt Family history of diabetes mellitus Grandmother (Paternal) Family history of diabetes mellitus Grandfather (Paternal) Family history of diabetes mellitus Social History Preferred Language: Icelandic Communication Ability: Effective Visual Impairment: No Limitations Coal Trammer Required: No Beliefs That Will Affect Care: None marital status: / Current Living Situation: Alone Feels Safe at Home: Yes Safety Concerns: Feels Safe At This Time Smoking Status: Never smoker Second Hand Exposure: Yes ; Hx Alcohol Use: No Hx Substance Use: No Review of Systems Review of Systems: All systems reviewed & are unremarkable except as noted in HPI & below Respiratory: + cough, + chest congestion, + dyspnea and + wheezing Cardiovascular: + dyspnea at rest and + palpitations Physical Exam Constitutional: WD/WN, vitals as above well developed, + ill appearing and + obese Eyes: PERRL, conjunctivae normal, anicteric sclerae ENMT: external ear and nose normal, oropharynx normal Neck: trachea midline, no thyromegaly Respiratory: + respiratory distress, + cough and + tachypneic Auscultation: + breath sounds absent, + crackles and + wheezes Cardiovascular: Rate/Rhythm: regular rhythm Heart Sounds: normal S1, normal S2 and + murmur Ventricularly paced Chest (Breasts): normal inspection/palpation of breasts Gastrointestinal (Abdomen): normal bowel sounds, soft, nontender, no hepatosplenomegaly Musculoskeletal: Knee: + skin erythema Large decubitus at the right buttock approximately 5 x 6 cm in size very deep and purulent. There is also small superficial wound located at the left lower extremity wheezing and purulent. Skin: Large decubital ulcer at the right lower extremity Neurologic: patellar DTR's 2+ bilat, sensation intact Psychiatric: A+Ox3, euthymic affect Orientation: alert and oriented to place Apperance: + disheveled Genitourinary: no vaginal lesions, no adnexal mass Lymphatic: no cervical or axillary lymphadenopathy Results & Data Vital Signs (Past 12 Hours) Vital Signs Temp Pulse Pulse Resp BP BP Pulse Ox 06/20/19 19:00 60 15 75/42 L 86 L 06/20/19 18:30 60 17 78/34 L 89 L 06/20/19 18:00 60 19 81/47 L 99 06/20/19 17:45 32.6 C L 60 26 H 88/57 L 84 L 06/20/19 17:02 60 18 108/58 L 88 L 06/20/19 16:52 32.9 C L 61 24 99/48 L 73 L 06/20/19 16:30 65 18 88/56 L 90 06/20/19 14:16 60 22 113/65 06/20/19 13:05 66 22 96/74 L 06/20/19 12:40 60 17 06/20/19 12:30 60 17 64/35 L 06/20/19 12:24 61 23 62/36 L 06/20/19 12:20 61 20 06/20/19 12:10 60 19 06/20/19 12:00 60 22 06/20/19 11:50 60 20 06/20/19 11:40 60 20 06/20/19 11:35 36.6 C 65 20 80/53 L 82 L 06/20/19 11:31 68 20 67/46 L 06/20/19 11:30 66 21 06/20/19 11:20 88 19 06/20/19 11:17 67 23 06/20/19 11:10 60 19 80/47 L Code Status & VTE Plan Code Status Full code VTE Prophylaxis Plan VTE Prophylaxis will be ordered: Yes PG Care Time/CCT Total # of Minutes Spent Total Time Spent with Patient: Total time spent is greater than 50% in coordination of care (as documented) at patient's floor/unit and/or counseling patient:
--- NOTE | 2019-06-20 20:38 | XRay Report ---
XR knee LT 2V routine CLINICAL HISTORY: 78 years-old Female presenting with ?effusion. TECHNIQUE: Frontal and crosstable lateral views of the left knee were obtained. COMPARISON: 11/10/2014. FINDINGS: Knee joint congruent. Severe joint space loss in the medial compartment as on prior exam. Moderate to severe joint space loss in the lateral compartment as on prior exam. Tricompartmental osteophytosis. The joint effusion suspected. Underlying osteopenia. No acute fracture or malalignment. Atherosclero sis. Diffuse subcutaneous edema. A wound VAC is in place. IMPRESSION: 1. Knee joint effusion suspected. 2. Diffuse soft tissue swelling, nonspecific. Correlate clinically to exclude cellulitis. 3. Severe tricompartmental degenerative changes. These are similar to 0.14. 4. Suspected underlying osteopenia. Electronically signed by: Husam Michelle M.D. 06/20/2019 8:36 PM
[2019-06-20 20:43] LABS: Basophils # (auto) 0.02 K/uL (0-0.2); Basophils % (auto) 0.2 %; Eosinophils # (auto) 0.28 K/uL (0-0.5); Eosinophils % (auto) 3.3 %; Hematocrit (blood only) 34.9 % (37-47); Immature Granulocytes # (auto) 0.01 K/uL (0.00-0.02); Immature Granulocytes % (auto) 0.1 %; Lymphocytes # (auto) 1.09 K/uL (1.2-3.4); Lymphocytes % (auto) 12.9 %; Mean Corpuscular Hgb Conc 34.4 g/dL (32-36); Mean Corpuscular Volume 95.9 fL (80-100); Mean Platelet Volume 11.7 fL (7.4-10.4); Monocytes # (auto) 1.43 K/uL (0.11-0.59); Neutrophils # (auto) 5.59 K/uL (1.4-6.5); Neutrophils % (auto) 66.5 %; Nucleated RBC # (auto) 0.04 K/uL (0-0); Nucleated RBC % (auto) 0.5 %; Platelet Count 103 K/uL (130-400); RDW Coefficient of Variation 20.5 % (11.5-14.5); RDW Standard Deviation 66.5 fL (36.4-46.3); Red Blood Count 3.64 M/uL (4.2-5.4); White Blood Count 8.42 K/uL (4.8-10.8)
[2019-06-20 21:00] LABS: BUN Creatinine Ratio 27.1 (10-20); Calcium 10.3 mg/dl (8.5-10.1); Creatinine Clr Calc Pharmacy 17.9 ml/min; Est GFR (African American) 18.4; Est GFR (Non-African American) 15.8; Magnesium 2.7 mg/dl (1.8-2.4); Potassium 4.8 mmol/L (3.5-5.1)
[2019-06-20] MEDS ORDERED: PIPERACILL/TAZOBAC CONSULT ACTIVE PRN (21:02)
[2019-06-20 21:05] LABS: Phosphorus 6.6 mg/dl (2.5-4.9); Troponin I 0.035 ng/ml (0-0.045)
--- NOTE | 2019-06-20 21:38 | Procedure Note ---
Procedure Note Date of Service June 20, 2019 Procedure: Energy Scheduler Indwelling Peripherally Inserted IV Catheter Placement Attending: Dr. Carlisle APC: Hernando Schuamcher PA-C Indication: Need for IV Access, Poor Vascular Access Anesthesia: None Verbal consent was obtained from patient prior to performing the procedure. A time-out was completed verifying correct patient, procedure, site, positioning, and implant(s) or special equipment if applicable. Utilizing bedside ultrasound, vascularity of the LEFT upper extremity was assessed. Vessel size was noted for appropriate catheter selection and skin was marked with gentle pressure. Patients LEFT upper extremity was prepped and draped in the usual sterile fashion utilizing chlorhexidine. Ultrasound guidance was used to aid needle placement. A 22 g Endurance Catheter was introduced into the LEFT brachiocephalic vein under direct ultrasound guidance. Guide wire was easily deployed without resistance. Catheter was threaded over the guide wire without resistance and the entire apparatus was removed intact. Good venous blood return was noted in the catheter. The IV catheter was easily flushed with sterile saline flush. Sterile clave was attached to the end of the catheter and good blood return was again noted. Tourniquet was released. StatLock device and sterile dressing were applied. The patient tolerated the procedure well. Blood Loss: Minimal Complications: None Procedural Ultrasound Guidance: Procedure Date: 06/17/2019 Indication: Poor Vascular Access Attending: Dr. Carlisle APC: Hernando Schumacher PA-C Artery/Veins Identified: YES Access confirmed in Vein with ultrasound: YES Complications: NONE Patient tolerated procedure: WELL Coding
[2019-06-20 21:42] LABS: Anisocytosis Present; Echinocytes 1+; Giant Platelets 1+; Macrocytosis Present; Polychromasia 1+
--- NOTE | 2019-06-20 21:45 | Procedure Note ---
Procedure Note Date of Service June 20, 2019 Procedure: [employer] Director Indwelling Peripherally Inserted IV Catheter Placement Attending: Dr. Carlisle APC: Hernando Schumacher PA-C Indication: Need for IV Access, Poor Vascular Access Anesthesia: None Verbal consent was obtained from patient prior to performing the procedure. A time-out was completed verifying correct patient, procedure, site, positioning, and implant(s) or special equipment if applicable. Utilizing bedside ultrasound, vascularity of the RIGHT upper extremity was assessed. Vesse l size was noted for appropriate catheter selection and skin was marked with gentle pressure. Patients RIGHT upper extremity was prepped and draped in the usual sterile fashion utilizing chlorhexidine. Ultrasound guidance was used to aid needle placement. An 18 g Endurance Catheter was introduced into the RIGHT Cephalic vein under direct ultrasound guidance. Guide wire was easily deployed without resistance. Catheter was threaded over the guide wire without resistance and the entire apparatus was removed intact. Good venous blood return was noted in the catheter. The IV catheter was easily flushed with sterile saline flush. Sterile clave was attached to the end of the catheter and good blood return was again noted. Tourniquet was released. StatLock device and sterile dressing were applied. The patient tolerated the procedure well. Blood Loss: Minimal Complications: None Procedural Ultrasound Guidance: Procedure Date: 06/20/2019 Indication: Poor Vascular Access Attending: Dr. Carlisle APC: Hernando Schumacher PA-C Artery/Veins Identified: YES Access confirmed in Vein with ultrasound: YES Complications: NONE Patient tolerated procedure: WELL Coding
--- NOTE | 2019-06-20 22:04 | Critical Care Progress Note ---
Date of Service June 20, 2019 Supervising Physician Co-Signing Physician Notes Patient seen and examined. Electronic medical record reviewed as well as appropriate imaging studies. Case discussed with MARIBEL and bedside critical care nurse as well as hospitalist. Impression: 78-year-old female with multiple medical comorbidities admitted to the hospital for possible sepsis. Initial concern was a urinary source. She was hypotensive and has developed acute renal failure which appears to be oliguric. Overnight she required institution of pressor agents. I placed an arterial line this morning for close monitoring of blood pressure. Echocardiogram has been completed. Recommendations: 1. Hypothermia: Now resolved with passive external rewarming. Etiology is unclear. Infection is certainly concern although metabolic etiologies including relative adrenal insufficiency may be contributing 2. Possible septic shock: Source not entirely clear although the patient has multiple possible etiologies including skin and soft tissue, pneumonia, urinary sources. She is day #2 Zosyn. Continue antibiotic for now and follow cultures. Will check CPK for possible pyomyositis. Her white count remains normal. 3. Relative adrenal insufficiency: Continue stress dose steroids. 4. Acute renal failure: Etiology unclear. She is essentially anuric. Fractional excretion of sodium is 0.69% which is suggestive of a prerenal state although the patient's BNP is elevated. We will judiciously provide additional fluids as well as colloid at this time. We will check renal ultrasound. Poor forward flow may be contributing and await formal echocardiogram. Should the patient progressed to dialysis, he may require CVVH which is not available at this facility and would require transfer to higher level of care. 5. Diastolic heart failure: Repeat echocardiogram is currently pending. She is paced. Her heart rate of 60 may be an adequate and will discuss with cardiology potentially increasing her rate. Her BNP is significantly increased. 6. History of atrial fibrillation: Anticoagulated on Coumadin. Would hold Coumadin given potential need for invasive procedures at this point time. She is paced currently. 7. Acute on chronic hypoxemic and hypercarbic respiratory failure: Continue noninvasive positive pressure ventilation. We will continue to provide bicarb support for metabolic issues. 8. Lactic acidosis. Her lactate appears to be increasing despite current care. This is worrisome. Patient remains critically ill. An additional 65 minutes of critical care time was spent in evaluation management and stabilization of this patient at this point. Subjective Patient admitted to this facility earlier this evening with symptoms of hypotension hypothermia. Transferred to the ICU in the setting of persistent hypotension and respiratory failure. Patient assessed for persistent hypoxia. Orders placed to place the patient on BiPAP settings as previously discussed. Repeat panel of labs were ordered. Patient with complaints of LEFT knee pain and swelling. LEFT knee is with concerns of joint effusion and tender to palpation with decreased range of motion secondary to pain. X-ray of the affec mak knee was ordered for evaluation of possible effusion for source of infection. In addition, ultrasound of the bilateral lower extremities were ordered for evaluation of possible thromboembolic disease contributing to ongoing hypoxic state. While this is likely not the case the patient is supra therapeutic with her INR of greater than 3, certainly warrants complete assessment at this point. A.m. echocardiogram was ordered. Patient with relatively labile blood pressures with maps continuing to dip below the 60s. Order placed for levo fed peripherally after ultrasound-guided peripheral sites were placed. I did review outpatient documentation and was able to view images of the patient's RIGHT sided gluteal decubitus ulcer. Exam is concerning for worsening ulcerative state. I am unable to appreciate any tracking. Wound culture was obtained from the affected site. Patient had previously been on ertapenem in the outpatient setting for her postoperative infection. Given this and the patient's continued worsening clinical picture, I did elect to broaden antibiotic coverage at this time. She was placed on Zosyn as well as vancomycin pending return of wound cultures and blood cultures. I have personally spent 45 minutes of critical care time in the direct management of this patient. This is a life/limb threatening event. This includes time spent evaluating patient, direct bedside care, chart review, placing orders, interpretation of diagnostic studies, discussion with consultants, patient, and family members, as well as other required patient management activities. This time is exclusive of all separately billable procedures, and teaching time and separate from and in addition to any other critical care service time. Results & Data Vital Signs (Past 12 Hours) Vital Signs Temp Pulse Pulse Resp BP BP Pulse Ox 06/20/19 21:31 60 20 98/50 L 95 06/20/19 21:00 60 24 80/45 L 94 06/20/19 20:41 60 20 92 06/20/19 20:00 60 21 81/68 L 91 06/20/19 19:30 70 22 87/60 L 90 06/20/19 19:00 60 15 75/42 L 86 L 06/20/19 18:30 60 17 78/34 L 89 L 06/20/19 18:00 60 19 81/47 L 99 06/20/19 17:45 32.6 C L 60 26 H 88/57 L 84 L 06/20/19 17:02 60 18 108/58 L 88 L 06/20/19 16:52 32.9 C L 61 24 99/48 L 73 L 06/20/19 16:30 65 18 88/56 L 90 06/20/19 14:16 60 22 113/65 06/20/19 13:05 66 22 96/74 L 06/20/19 12:40 60 17 06/20/19 12:30 60 17 64/35 L 06/20/19 12:24 61 23 62/36 L 06/20/19 12:20 61 20 06/20/19 12:10 60 19 06/20/19 12:00 60 22 06/20/19 11:50 60 20 06/20/19 11:40 60 20 06/20/19 11:35 36.6 C 65 20 80/53 L 82 L 06/20/19 11:31 68 20 67/46 L 06/20/19 11:30 66 21 06/20/19 11:20 88 19 06/20/19 11:17 67 23 06/20/19 11:10 60 19 80/47 L PG Care Time/CCT Total # of Minutes Spent Total Time Spent with Patient: Total time spent is greater than 50% in coordination of care (as documented) at patient's floor/unit and/or counseling patient:
[2019-06-20] MEDS: HYDROCORTISONE SOD 50 MG in SYRINGE 0 ML IV SCH (22:11)
--- NOTE | 2019-06-20 22:17 | Ultrasound Report ---
US venous doppler LE BI CLINICAL HISTORY: 78 years-old Female presenting with b/l le edema. TECHNIQUE: Real-time grayscale and color and spectral Doppler ultrasound imaging of the veins of the bilateral lower extremities was performed. Compression and augmentation were also utilized. COMPARISON: 06/28/2017. FINDINGS: RIGHT: Common femoral vein: Patent. Greater saphenous vein (superficial): Patent. Deep femoral vein: Patent. Femoral vein: Patent. Popliteal vein: Patent. Calf veins: Patent. LEFT: Common femoral vein: Patent. Greater saphenous vein (superficial): Patent. Deep femoral vein: Patent. Femoral vein: Patent. Popliteal vein: Patent. Calf veins: Patent. Other: Subcutaneous edema in the right popliteal fossa. IMPRESSION: 1. No evidence of deep venous thrombosis. 2. Subcutaneous edema in the right popliteal fossa. Electronically signed by: Hsuam Michelle M.D. 06/20/2019 10:16 PM
[2019-06-20] MEDS ORDERED: PIPERACILLIN/TAZOBACTAM 2.25 GM in DEXTROSE 5% 100 ML IV ONE (22:30)
[2019-06-20] MEDS ORDERED: PIPERACILLIN/TAZOBACTAM 3.375 GM in DEXTROSE 5% 100 ML IV ONE (22:30)
[2019-06-20] MEDS: NOREPINEPHRINE BIT INJ 8 MG in DEXTROSE 5% 500 ML IV SCH (22:44)
[2019-06-20] MEDS ORDERED: NOREPINEPHRINE BIT INJ 4 MG in DEXTROSE 5% 250 ML IV SCH (22:45)
[2019-06-21] MEDS: SODIUM CHLORIDE 0.9% 500 ML IV SCH ×3 (00:13→11:58)
[2019-06-21] MEDS: NOREPINEPHRINE BIT INJ 8 MG in DEXTROSE 5% 500 ML IV SCH ×2 (01:21→15:27)
--- NOTE | 2019-06-21 03:41 | Procedure Note ---
Procedure Note Date of Service June 21, 2019 Procedure: Arterial Line Placement Attending: Dr. Carlisle APC: Hernando Schumacher PA-C Indication: Monitoring on Pressors Anesthesia: Lidocaine 1% As patient is currently requiring escalating doses of pressors and was previously noted to be metabolically acidotic, repeat ABG was necessary. As patient would have need for frequent lab draws as well as frequent reassessments of ABGs, had previously discussed with the patient placing arterial line for close monitoring of blood pressure as well as ease of lab draw. Patient verbally consents and given the patient's progressive to state of deterioration, emergent consent implied. Indication, risks, and benefits were explained at length. A time-out was completed verifying correct patient, procedure, site, positioning, and implant(s) or special equipment if applicable. Allens test was performed to ensure adequate perfusion. Patients RIGHT wrist was prepped and draped in the usual sterile fashion. Ultrasound guidance was used to aid needle placement. A 20g Arrow arterial line was introduced into the RIGHT Radial artery without complication. The catheter was easily wired over. I was unable to advance the catheter in to the lumen of the vessel. This was repeated with a new catheter and blood return was again noted. The catheter could only be partially wired over. Appropriate pulsitile blood return noted. An ABG sample was collected. The procedure was aborted. The patient tolerated the procedure well. No immediate complications noted. Blood Loss: Minimal Complications: None Procedural Ultrasound Guidance: Procedure Date: 06/21/2019 Indication: Pressors, Frequent Lab Draws, Acidosis Attending: Dr. Carlisle APC: Hernando Schumacher PA-C Artery Identified: YES Line confirmed in Artery with ultrasound: YES Complications: NONE Patient tolerated procedure: WELL Coding CPT Codes Tubes, Drains, and Vasc Access - Tubes, Drains, and Vasc Access: Place Catheter In Artery ([id number])
[2019-06-21 03:49] LABS: iSTAT Allen Test Pass; iSTAT Art Bld Gas pCO2 Correct 43 mmHg (35-46); iSTAT Art Bld Gas pH Corrected 7.317 (7.35-7.45); iSTAT Arterial Blood Gas HCO3 22 meg/L (19-24); iSTAT Arterial Blood Gas pCO2 44 mmHg (35-46); iSTAT Arterial Blood Gas pH 7.31 (7.35-7.45); iSTAT Carbon Dioxide 23 mEq/l (24-31); iSTAT FiO2 167 %; iSTAT Site R Radial
[2019-06-21] MEDS ORDERED: PIPERACILLIN/TAZOBACTAM 3.375 GM in DEXTROSE 5% 100 ML IV SCH (04:00)
[2019-06-21 05:35] LABS: Prothrombin Time 33.8 Seconds (9.0-12.0)
[2019-06-21 05:40] LABS: Albumin Level 2.8 gm/dl (3.4-5.0); Calcium 9.7 mg/dl (8.5-10.1); Magnesium 2.6 mg/dl (1.8-2.4); Potassium 5.5 mmol/L (3.5-5.1)
[2019-06-21 05:42] LABS: BUN Creatinine Ratio 24.5 (10-20); Creatinine Clr Calc Pharmacy 16.7 ml/min; Est GFR (African American) 16.9; Est GFR (Non-African American) 14.6
[2019-06-21] MEDS ORDERED: ALBUMIN 25% 50 ML IV ONE (05:43)
[2019-06-21] MEDS ORDERED: SODIUM CHLORIDE 0.9% 1000ML 500 ML IV ONE (05:43)
[2019-06-21 05:51] LABS: Hematocrit (blood only) 38.8 % (37-47); Hemoglobin 12.8 g/dL (12.0-16.0); RDW Coefficient of Variation 20.5 % (11.5-14.5); RDW Standard Deviation 66.5 fL (36.4-46.3); Red Blood Count 4.04 M/uL (4.2-5.4)
[2019-06-21 05:52] LABS: Albumin Globulin Ratio 0.5 (0.9-2); Bilirubin,Total 1.6 mg/dl (0.2-1); Globulin 5.2 gm/dl (2.5-4.0); Troponin I 0.165 ng/ml (0-0.045)
[2019-06-21] MEDS ORDERED: NovoLIN-R INSULIN PER UNIT CHARGE IV STA (06:00)
[2019-06-21 06:07] LABS: Anisocytosis Present; Basophils # (auto) 0.01 K/uL (0-0.2); Basophils % (auto) 0.1 %; Echinocytes 2+; Eosinophils # (auto) 0.01 K/uL (0-0.5); Eosinophils % (auto) 0.1 %; Immature Granulocytes # (auto) 0.02 K/uL (0.00-0.02); Immature Granulocytes % (auto) 0.2 %; Lymphocytes # (auto) 0.56 K/uL (1.2-3.4); Lymphocytes % (auto) 6.7 %; Mean Platelet Volume 12.4 fL (7.4-10.4); Monocytes # (auto) 0.35 K/uL (0.11-0.59); Monocytes % (auto) 4.2 %; Neutrophils # (auto) 7.45 K/uL (1.4-6.5); Neutrophils % (auto) 88.7 %; Platelet Count 130 K/uL (130-400); Platelet Estimate Normal (Normal)
[2019-06-21 06:21] LABS: INR 3.6 (0.9-1.1)
[2019-06-21] MEDS: HYDROCORTISONE SOD 50 MG in SYRINGE 0 ML IV SCH ×3 (06:31→17:18)
[2019-06-21] MEDS ORDERED: DEXTROSE 50% 50 ML SYRINGE IV ONE (06:45)
[2019-06-21] MEDS ORDERED: CALCIUM GLUCONATE 10% 1,000 MG in SODIUM CHLORIDE 0.9% 50 ML IV ONE (06:45)
[2019-06-21] MEDS ORDERED: INSULIN HUMAN REGULAR PER UNIT 8 UNITS in SYRINGE 7.92 ML IV ONE (06:50)
--- NOTE | 2019-06-21 08:16 | XRay Report ---
SINGLE VIEW CHEST CLINICAL HISTORY: Generalized weakness. FINDINGS: An AP, portable, upright chest radiograph is compared to study dated 06/20/2019 and correlate d with chest CT dated 08/23/2018. The examination is degraded by portable technique and patient rotat ion. A 2-lead cardiac pacemaker is unchanged in position. The heart is enlarged and there is atherosc lerotic calcification of the thoracic aorta. Mild pulmonary vascular congestion persists. Small pleur al effusions are noted. Bibasilar opacities likely represent atelectasis. No pneumothorax is seen. Th e skeletal structures are osteopenic. Fusion hardware is seen at the thoracolumbar junction. There ar e bilateral shoulder arthroplasties. IMPRESSION: 1. Cardiomegaly and cardiac pacemaker with mild pulmonary vascular congestion 2. There are small pleural effusions. 3. Bibasilar opacities likely represent atelectasis. Clinical correlation will be required. Electronically signed by: Christ Woodward M.D. 06/21/2019 8:15 AM
[2019-06-21] MEDS: NYSTATIN POWDER 15GM BTL EXT SCH ×3 (08:23→20:16)
[2019-06-21] MEDS ORDERED: FLUTICASONE PROPIONATE NA SPR 16 GM BTL NAE SCH (09:00)
[2019-06-21] MEDS ORDERED: FERROUS SULFATE 325 MG TAB PO SCH (09:00)
[2019-06-21] MEDS ORDERED: FOLIC ACID 1 MG TAB PO SCH (09:00)
[2019-06-21] MEDS ORDERED: CYANOCOBALAMIN 500 MCG TABLET (VITAMIN B-12) PO SCH (09:00)
[2019-06-21] MEDS ORDERED: CHOLECALCIFEROL 1,000 UNITS TAB PO SCH (09:00)
[2019-06-21] MEDS ORDERED: NON-FORMULARY MEDICATION (Lactobacillus Combination No.4 [Probiotic] 3,000 mmu cells) PO SCH (09:00)
--- NOTE | 2019-06-21 09:28 | Procedure Note ---
Procedure Note Date of Service June 21, 2019 ARTERIAL LINE PROCEDURE NOTE: Procedure: Arterial Line Placement Provider: Qamar Carlisle MD Indication: Monitoring on Pressors Anesthesia: None Procedure was emergent. The patient is on vasopressors and requires invasive hemodynamic monitoring. She is encephalopathic and unable to provide consent. No family immediately available. A time-out was completed verifying correct patient, procedure, site, positioning, and implant(s) or special equipment if applicable. Allens test was performed to ensure adequate perfusion. Patients left wrist was prepped and draped in the usual sterile fashion. Ultrasound guidance was used to aid needle placement. A 20g Arrow arterial line was introduced into the radial artery. Catheter was threaded, and the needle was removed with appropriate blood return. Good waveform was observed. The patient tolerated the procedure well. Confirmation of placement with ultrasound. Procedure was performed under ultrasound guidance however we were unable to capture images and uploaded into the viewer system due to technological issues. Blood Loss: Minimal Complications: None Procedural Ultrasound Guidance: y Patient tolerated procedure: WELL Coding CPT Codes Tubes, Drains, and Vasc Access - Tubes, Drains, and Vasc Access: Insertion Catheter, Artery ([id number]) Tubes, Drains, and Vasc Access - Tubes, Drains, and Vasc Access: Ultrasound Guidance For Vascular ([id number])
[2019-06-21] MEDS ORDERED: SODIUM BICARB 8.4% INJ 50 MEQ/50 ML SYR IV STA (10:06)
[2019-06-21] MEDS: ALBUMIN 25% 50 ML IV SCH ×3 (11:58→20:14)
--- NOTE | 2019-06-21 13:35 | Hospitalist Progress Note ---
Date of Service June 21, 2019 Assessment & Plan (1) Hypotension: Unclear cause at this point. Concern for adrenal insufficiency. - Stress-dose steroids - Hold HTN meds - IV fluids - Empiric Zosyn - Pressors as needed (2) GARFIELD (acute kidney injury): Baseline creatinine is ~0.8-1.0. On admission, she was 2.7. She is presently oliguric with only ~75cc of urine despite >3L IV fluids. - Avoid nephrotoxic agents - Further fluids per ICU team - May need transfer for [facility] if she remains hypotensive and requires dialysis. (3) Sepsis: Unclear source or if this is sepsis. Mostly likely sources of infection would be urinary vs. coccyx wound. Lung also possible. - Continue abx (4) Hypothermia: As the above (5) Sacral decubitus ulcer: Apparently patient has decubital ulcer for several months if not longer. - Wound culture obtained - Zosyn as above (6) Hypoglycemia: On arrival to the emergency room patient's glucose was only 69. Patient was given D5 which improved her glucose. - Hold hypoglycemic agents - Accu-Cheks per ICU team (7) Hypoxia: Hypoxia and respiratory failure likely due to volume overload. - BiPap per ICU team (8) Acute on chronic diastolic heart failure: Echo on 06/21 showed normal LV function & flatted septum, consistent with volume overload. - BiPap - Diuresis as able, though presently hypotensive. (9) Paroxysmal atrial fibrillation: In a ventricularly-paced rhythm on admission. - On warfarin at home; held on 06/21 for a mildly high INR (3.6) - Continue beta-reynold as able once not hypotensive (10) DVT prophylaxis: On warfarin for afib. INR therapeutic on 06/21. Subjective Unable to wake up and respond. Opens eyes, but does not answer. Review of Systems Review of Systems: Unobtainable due to cognitive status and Unobtainable due to reduced consciousness Physical Exam Constitutional: WD/WN, vitals as above + acute distress, + ill appearing and + obese ENMT: external ear and nose normal, oropharynx normal Neck: trachea midline, no thyromegaly Respiratory: + respiratory distress, + cough and + tachypneic Auscultation: + crackles Cardiovascular: Rate/Rhythm: regular rhythm Heart Sounds: normal S1, normal S2 and + murmur Gastrointestinal (Abdomen): normal bowel sounds, soft, nontender, no hepatosplenomegaly Neurologic: patellar DTR's 2+ bilat, sensation intact Psychiatric: Orientation: + not alert and + not oriented to place Apperance: + disheveled Results & Data Vital Signs (Past 12 Hours) Vital Signs Pulse Resp BP Pulse Ox 06/21/19 12:00 60 12 94 06/21/19 10:30 60 19 93 06/21/19 10:00 60 19 90 06/21/19 09:30 60 22 92 06/21/19 09:00 60 25 H 93 06/21/19 08:30 60 16 91/56 L 96 06/21/19 08:15 60 15 85/52 L 96 06/21/19 08:00 60 15 81/52 L 96 06/21/19 07:46 60 15 80/51 L 95 06/21/19 07:31 60 19 96/56 L 94 06/21/19 07:30 60 14 92 06/21/19 07:16 60 18 110/57 L 93 06/21/19 07:01 60 15 89/55 L 92 06/21/19 07:00 60 15 93 06/21/19 06:30 61 12 95/62 L 91 06/21/19 06:16 60 19 98/41 L 94 06/21/19 06:01 60 18 93/53 L 83 L 06/21/19 05:54 60 12 94/58 L 91 06/21/19 05:40 60 19 78/42 L 94 06/21/19 05:35 61 20 91/44 L 94 06/21/19 05:00 60 24 95/54 L 89 L 06/21/19 04:46 60 25 H 94/56 L 93 06/21/19 04:40 60 10 L 97/56 L 94 06/21/19 04:31 60 14 70/51 L 92 06/21/19 04:27 61 16 92/59 L 93 06/21/19 04:17 61 19 69/27 L 88 L 06/21/19 04:02 60 16 99/62 L 95 06/21/19 03:47 61 14 87/54 L 93 06/21/19 03:45 61 21 92 06/21/19 03:42 60 25 H 95/60 L 95 06/21/19 03:16 60 22 100/58 L 93 06/21/19 03:06 60 21 98/64 L 94 06/21/19 02:46 60 15 76/48 L 92 06/21/19 02:30 60 22 97/57 L 93 06/21/19 02:27 60 17 79/30 L 92 06/21/19 02:01 60 18 82/52 L 92 06/21/19 01:46 60 21 112/48 L 91 06/21/19 01:31 60 27 H 84/52 L 92 PG Care Time/CCT Total # of Minutes Spent Total Time Spent with Patient: Total time spent is greater than 50% in coordination of care (as documented) at patient's floor/unit and/or counseling patient:
[2019-06-21] MEDS ORDERED: PIPERACILLIN/TAZOBACTAM 4.5 GM in DEXTROSE 5% 100 ML IV SCH (14:00)
[2019-06-21] MEDS ORDERED: SODIUM CHLORIDE 0.9% 1000ML 1,000 ML IV SCH (14:45)
[2019-06-21] MEDS ORDERED: WARFARIN SOD 2 MG TAB PO SCH (16:00)
[2019-06-21] MEDS ORDERED: VANCOMYCIN CONSULT ACTIVE PRN (19:25)
[2019-06-21] MEDS ORDERED: VANCOMYCIN HCL 2,250 MG in SODIUM CHLORIDE 0.9% 500 ML IV ONE (20:00)
[2019-06-21 20:08] LABS: Hematocrit (blood only) 38.3 % (37-47); Hemoglobin 12.7 g/dL (12.0-16.0); Mean Corpuscular Hgb Conc 33.2 g/dL (32-36); Mean Corpuscular Volume 96.2 fL (80-100); Nucleated RBC # (auto) 0.05 K/uL (0-0); Nucleated RBC % (auto) 0.3 %; Platelet Count 122 K/uL (130-400); RDW Coefficient of Variation 20.8 % (11.5-14.5); RDW Standard Deviation 66.7 fL (36.4-46.3); Red Blood Count 3.98 M/uL (4.2-5.4); White Blood Count 15.09 K/uL (4.8-10.8)
[2019-06-21 20:14] LABS: Albumin Level 3.1 gm/dl (3.4-5.0); BUN Creatinine Ratio 24.2 (10-20); Bilirubin Direct 1.2 mg/dl (0-0.2); Calcium 9.2 mg/dl (8.5-10.1); Creatinine Clr Calc Pharmacy 16.5 ml/min; Est GFR (African American) 16.2; Magnesium 2.4 mg/dl (1.8-2.4); Potassium 5.1 mmol/L (3.5-5.1)
[2019-06-21 20:15] LABS: Prothrombin Time 41.3 Seconds (9.0-12.0)
[2019-06-21] MEDS: LACTOBACILLUS ACIDOPHILUS (FLORANEX) TAB PO SCH (20:15)
[2019-06-21] MEDS: SENNA 8.6 MG TAB PO SCH (20:16)
[2019-06-21] MEDS: MONTELUKAST SODIUM 10 MG TABLET PO SCH (20:17)
[2019-06-21 20:23] LABS: Bilirubin,Total 1.8 mg/dl (0.2-1); Phosphorus 6.3 mg/dl (2.5-4.9); Total Protein 7.4 gm/dl (6.4-8.2); Troponin I 0.197 ng/ml (0-0.045)
[2019-06-21 20:26] LABS: Anisocytosis Present; Basophils # (auto) 0.01 K/uL (0-0.2); Basophils % (auto) 0.1 %; Echinocytes 1+; Eosinophils # (auto) 0.01 K/uL (0-0.5); Eosinophils % (auto) 0.1 %; Giant Platelets 1+; Immature Granulocytes # (auto) 0.04 K/uL (0.00-0.02); Immature Granulocytes % (auto) 0.3 %; Lymphocytes # (auto) 0.59 K/uL (1.2-3.4); Lymphocytes % (auto) 3.9 %; Monocytes # (auto) 0.77 K/uL (0.11-0.59); Monocytes % (auto) 5.1 %; Neutrophils # (auto) 13.67 K/uL (1.4-6.5); Neutrophils % (auto) 90.5 %; Toxic Vacuolation 1+
--- NOTE | 2019-06-21 20:32 | Critical Care Progress Note ---
Date of Service June 21, 2019 Subjective 1900: At change of shift, was approached nursing staff as the patient was now quiroz ving black stools which were heme positive. She has had 3 throughout the day. In addition, her wound culture on the right decubitus has grown out MRSA. After discussion with hospitalist team, repeat labs were obtained. Coumadin was held. Vitamin K was ordered. Laboratory results demonstrate worsening renal function. Electrolytes are within normal limits at this point. Patient is tolerating PRN trials off of BiPAP. ABG was reordered which has been stable. Case is reviewed with the patient's son at bedside. He is POA. He does wish for the patient to be a full code at this time. I did discuss all concerns at this time as well as risk for a nonsurvivable state. Regardless, he reports that he would like to honor his mother's wishes and remain a full code at this point. Patient was provided 80 mg dose of Protonix. I did discuss the case with [facility]. I spoke with Dr. Jj who accepts the patient in transfer. Patient to be transferred via [facility]. I have personally spent 45 minutes of critical care time in the direct management of this patient. This is a life/limb threatening event. This includes time spent evaluating patient, direct bedside care, chart review, placing orders, interpretation of diagnostic studies, discussion with consultants, patient, and family members, as well as other required patient management activities. This time is exclusive of all separately billable procedures, and teaching time and separate from and in addition to any other critical care service time. Results & Data Vital Signs (Past 12 Hours) Vital Signs Temp Pulse Resp Pulse Ox 06/21/19 18:34 36.1 C L 06/21/19 18:00 60 24 91 06/21/19 16:00 60 24 96 06/21/19 15:30 60 14 93 06/21/19 15:00 60 23 92 06/21/19 14:30 60 19 91 06/21/19 14:04 60 22 95 06/21/19 12:00 60 12 94 06/21/19 10:30 60 19 93 06/21/19 10:00 60 19 90 06/21/19 09:30 60 22 92 06/21/19 09:00 60 25 H 93 PG Care Time/CCT Total # of Minutes Spent Total Time Spent with Patient: Total time spent is greater than 50% in coordination of care (as documented) at patient's floor/unit and/or counseling patient: Critical Care Time: Yes Total Critical Care Time: 45
[2019-06-21 20:34] LABS: iSTAT Art Bld Gas pCO2 Correct 37 mmHg (35-46); iSTAT Art Bld Gas pH Corrected 7.345 (7.35-7.45); iSTAT Arterial Blood Gas HCO3 21 meg/L (19-24); iSTAT Arterial Blood Gas pCO2 40 mmHg (35-46); iSTAT Arterial Blood Gas pH 7.32 (7.35-7.45); iSTAT Carbon Dioxide 22 mEq/l (24-31); iSTAT Hematocrit 41 % (37-47); iSTAT Hemoglobin 13.9 g/dl (12.0-16.0); iSTAT Potassium 5.1 mEq/L (3.3-5.0); iSTAT Site Art Line; iSTAT Sodium 138 mEq/L (135-144)
[2019-06-21 20:42] LABS: INR 4.5 (0.9-1.1)
[2019-06-21] MEDS ORDERED: PANTOprazole 80 MG in DEXTROSE 5% 100 ML IV STA (20:57)
[2019-06-21] MEDS ORDERED: PHYTONADIONE 5 MG in SODIUM CHLORIDE 0.9% 50 ML IV ONE (21:00)
[2019-06-23] MEDS ORDERED: ASPIRIN 81 MG ECTAB PO SCH (09:00)
[2019-06-23] MEDS ORDERED: WARFARIN SOD 4 MG TAB PO SCH (16:00)
--- NOTE | 2019-06-28 15:23 | Discharge Summary ---
Date of Service June 21, 2019 Admission HPI Per Admitting Provider Patient is a 78 years old female with past medical history of of coronary- coronary artery disease hypertension, atrial fibrillation sleep apnea, congestive heart failure, type 2 diabetes mellitus, cellulitis of the left lower extremity with repair, shoulder joint replacement on the left, stage III chronic kidney disease presents to the emergency room with a complaint of feeling generalized weakness and shortness of breath, loss of appetite nausea vomiting. Patient reports no chest pain no fever chills. Patient says she especially fatigued in the past 4 days she has been vomiting and not being able to eat due to nausea. Patient has syncope approximately 6 weeks ago but nothing recently.. Patient denies gaining any weight. Patient said that she is not using oxygen at home but at this time she needs oxygen. Patient labs were reviewed 11 cell count,7.08 hemoglobin so, hematocrit 34.6, platelets 112, PT 32.3, INR 3.4, ABG pH 7.315, PCO2 47, P O2 73, HCO3 21, BUN 77, creatinine 2.71, GFR 18.3. Urine a nalysis: Urine appearance -turbid leukocyte esterase trace positive for epithelial cells. Chest x-rays are reviewed:1. Mild interstitial thickening and bilateral opacities which have improved since exam of April 13, 2019.2. Suspected trace bilateral pleural effusions. BNP of 5393, Albumin 2.5. EKG shows ventricular paced rhythm. Ventricular rate 60. QT 528. Patient patient received 2 L in the emergency room of normal saline which improved her hypotension and her blood pressure was 130/60. Decision was made to admit patient to PCU telemetry. Since patient became hypo-thermic and her temperature was of 32.9 decision was made to transfer patient to the ICU. Principal Diagnosis Hypotension Discharge Exam Constitutional WD/WN, vitals as above + acute distress, + ill appearing and + obese ENMT external ear and nose normal, oropharynx normal Neck trachea midline, no thyromegaly Respiratory + respiratory distress, + cough and + tachypneic Auscultation: + crackles Cardiovascular Rate/Rhythm: regular rhythm Heart Sounds: normal S1, normal S2 and + murmur Gastrointestinal (Abdomen) normal bowel sounds, soft, nontender, no hepatosplenomegaly Neurologic patellar DTR's 2+ bilat, sensation intact Psychiatric Orientation: + not alert and + not oriented to place Apperance: + disheveled Discharge Data Allergies Allergy/AdvReac Type Severity Reaction Status Date / Time adhesive Allergy Mild RASH & Verified 06/20/19 13:23 BLISTERS NSAIDS (Non-Steroidal AdvReac Intermediate ADVISED TO Verified 06/20/19 13:23 Anti-Inflamma AVOID DUE TO KIDNEY DISEASE morphine AdvReac Mild "SENSITIVITY"- Verified 06/20/19 13:23 "go crazy" Consultations 06/20/19 13:44 ED Decision to Admit Stat 06/20/19 17:10 Consult Gas Technician Routine 06/21/19 20:47 Burn CD for patient Stat Ordered Studies 06/20/19 19:46 US venous doppler LE Urgent Hospital Course (1) Hypotension: Unclear cause at this point. Concern for adrenal insufficiency. Patient was transfered to [facility] by [facility] on 06/21/2019. - Stress-dose steroids - Hold HTN meds - IV fluids - Empiric Zosyn - Pressors as needed (2) GARFIELD (acute kidney injury): Baseline creatinine is ~0.8-1.0. On admission, she was 2.7. She is presently oliguric with only ~75cc of urine despite >3L IV fluids. - Avoid nephrotoxic agents - Further fluids per ICU team - May need transfer for [facility] if she remains hypotensive and requires dialysis. (3) Sepsis: Unclear source or if this is sepsis. Mostly likely sources of infection would be urinary vs. coccyx wound. Lung also possible. - Continue abx (4) Hypothermia: As the above (5) Sacral decubitus ulcer: Apparently patient has decubital ulcer for several months if not longer. - Wound culture obtained - Zosyn as above (6) Hypoglycemia: On arrival to the emergency room patient's glucose was only 69. Patient was given D5 which improved her glucose. - Hold hypoglycemic agents - Accu-Cheks per ICU team (7) Hypoxia: Hypoxia and respiratory failure likely due to volume overload. - BiPap per ICU team (8) Acute on chronic diastolic heart failure: Echo on 06/21 showed normal LV function & flatted septum, consistent with volume overload. - BiPap - Diuresis as able, though presently hypotensive. (9) Paroxysmal atrial fibrillation: In a ventricularly-paced rhythm on admission. - On warfarin at home; held on 06/21 for a mildly high INR (3.6) - Continue beta-reynold as able once not hypotensive (10) DVT prophylaxis: On warfarin for afib. INR therapeutic on 06/21. Total Time Total Time Spent Total Time Spent (In Minutes): 35 Total Time Includes: Examination of the Patient, Discharge Planning and Communication With Other Providers Discharge Plan Discharge Items Patient Disposition: Transfer Acute Care Hospital Reason For Visit: HYPOTENSION,DEHYDRATION,SEVERE SEPSIS,ACUTE CHF EX Follow-up/Referrals: Bianca Reyes [Primary Care Provider] - Addtl Provider Instructions: Prescriptions: No Action acetaminophen 325 mg capsule 650 mg PO Q4H PRN (Reason: Pain) RF: 0 levofloxacin 500 mg tablet 500 mg PO DAILY Qty: 30 RF: 1 Probiotic 3 billion cell capsule 3,000 mmu cells PO DAILY Qty: 30 RF: 0 cyanocobalamin (vitamin B-12) 500 mcg Tablet 500 mcg PO DAILY RF: 0 ferrous sulfate 325 mg (65 mg iron) Tablet 325 mg PO DAILY RF: 0 aspirin 81 mg Tablet,Chewable 81 mg PO 3XWK RF: 0 folic acid 1 mg Tablet 1 mg PO DAILY RF: 0 fluticasone propionate 50 mcg/actuation [place],Suspension 2 spray INTRANASAL DAILY RF: 0 cholecalciferol (vitamin D3) 1,000 unit Capsule 1,000 unit PO DAILY RF: 0 montelukast 10 mg Tablet 10 mg PO PM RF: 0 metoprolol succinate 25 mg Tablet Extended Release 24 Hr 37.5 mg PO BID RF: 0 warfarin 4 mg Tablet 4 mg PO 3XWK RF: 0 warfarin 2 mg Tablet 2 mg PO 4XWK RF: 0 nitroglycerin 0.4 mg Tablet, Sublingual 0.4 mg sublingual Q5M PRN (Reason: Chest Pain) RF: 0 nystatin 100,000 unit/gram Powder See Rx Instructions .ROUTE .COMPLEX RF: 0 PreserVision AREDS-2 [id number] fs-myby-cf-mg Capsule 1 tab PO BID RF: 0 oxycodone 5 mg Tablet 5 mg PO Q4 PRN (Reason: pain) Qty: 30 RF: 0 Lactobacillus acidoph-L.bulgar [Floranex] 1 million cell Tablet 4 tab PO HS Qty: 30 RF: 0 sennosides [Senokot] 8.6 mg Tablet 17.2 mg PO HS Qty: 20 RF: 0 furosemide 40 mg Tablet 40 mg PO BID Qty: 0 RF: 0 ranitidine HCl 150 mg tablet 150 mg PO BID RF: 0 Stand-Alone Forms: [facility] Discharge Orders: Discharge Order (Routine); Ordered 06/21/19 Ordered By: Hernando Schumacher Admission Data Admit Date/Time: 06/20/19 15:02 Attending Provider: Arturo Biswas Admit Provider: David Harvey Primary Care Provider: Bianca Reyes Other Providers: Arturo Biswas ; David Harvey ; Qamar Carlisle Service: Intensive Care Unit Other Interventions: Discharge Summary Assessment (RN) Last Done: 06/21/19 22:51 DC Date/Time DO NOT enter until pt leaves facility: 06/21/19 22:26
== END 2019-06-21 22:26 | disposition short-term general hospital (02) | DRG 871 ==
LOC: ED 11:05 → SUATTDRO 15:02 → 2S 15:02 → 1E 16:30